=== PATIENT | female | born 1950 | race Caucasian/White ===

== ENCOUNTER 2017-03-11 15:14 | Inpatient (IN) | payer MEDICARE, MEDICAID ==
[2017-03-11] MEDS ORDERED: FUROSEMIDE 10 MG/ML 4 ML VIAL IV STA (15:41)
[2017-03-11] MEDS ORDERED: methylPREDNISolone SOD SUCCI 125 MG/2 ML VIAL IV STA (15:41)
[2017-03-11] MEDS ORDERED: IPRATROPIUM-ALBUTEROL 3 ML NEB INHALATION STA (15:41)
--- NOTE | 2017-03-11 15:44 | ED ---
SOB HPI - General Chief Complaint: Shortness of Breath Stated Complaint: Low Oxygen level Time Seen by Provider: 03/11/17 15:25 Source: patient, family, RN notes reviewed Mode of arrival: wheelchair Limitations: physical limitation - History of Present Illness Initial Comments: This is a 67-year-old female with a history of CHF and COPD who states she's had about one week of progressively worsening shortness of breath refractory to her home medications she denies any overt fevers chills sweats or chest pain. She does states she currently being treated for infection to both her lower extremities she is not really nose any increased edema. She denies any overt dizziness she has have a history of atrial fibrillation she notices no increased palpitations. MD Complaint: shortness of breath - Related Data Home Medications Medication Instructions Recorded Confirmed Aspirin [Adult Low Dose Aspirin EC] 81 mg PO DAILY@0600 11/18/15 03/11/17 Fluticasone/Salmeterol [Advair 1 puff INHALATION RT-BID 11/18/15 03/11/17 250-50 Diskus] Furosemide 40 mg PO DAILY@0611/18/15 03/11/17 Metoprolol Tartrate [Lopressor] 50 mg PO DAILY@169911/18/15 03/11/17 Metoprolol Tartrate [Lopressor] 150 mg PO DAILY@0611/18/15 03/11/17 Montelukast [Singulair] 10 mg PO DAILY@169911/18/15 03/11/17 Multivitamins, Thera [Multivitamin 1 tab PO DAILY 11/18/15 03/11/17 (formulary)] Rivaroxaban [Xarelto] 15 mg PO DAILY@169911/18/15 03/11/17 Acetaminophen Tab [Tylenol Tab] 1,500 mg PO BID 03/11/17 03/11/17 Fexofenadine HCl [Sarita Allergy] 180 mg PO DAILY PRN 03/11/17 03/11/17 Ipratropium Nebulized [Atrovent 0.5 mg INHALATION RT-BID 03/11/17 03/11/17 Nebulized] Lansoprazole [Prevacid] 15 mg PO DAILY PRN 03/11/17 03/11/17 Losartan [Cozaar] 25 mg PO DAILY@1300 03/11/17 03/11/17 Spironolactone [Aldactone] 25 mg PO DAILY@1300 03/11/17 03/11/17 amLODIPine [Norvasc] 10 mg PO DAILY@1700 03/11/17 03/11/17 cloNIDine HCL [Catapres] 0.1 mg PO TID@0600,1300,2200 03/11/17 03/11/17 Allergies Allergy/AdvReac Type Severity Reaction Status Date / Time No Known Allergies Allergy Verified 03/11/17 16:29 Review of Systems ROS Statement: Those systems with pertinent positive or pertinent negative responses have been documented in the HPI. ROS Other: All systems not noted in ROS Statement are negative. Past Medical History Past Medical History: Atrial Fibrillation, Asthma, Heart Failure, COPD, GI Bleed , Hypertension Additional Past Medical History / Comment(s): 11-18-15 admitted with c/o abd pain , clinical impression acute diverticulitis, cellulitis ll extremitis. 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 Smoking Status: Former smoker Past Alcohol Use History: None Reported Additional Past Alcohol Use History / Comment(s): used to smoke , quit 2013 Past Drug Use History: None Reported - Past Family History Father Family Medical History: Eye Disorder, Osteoarthritis (OA) Additional Family Medical History / Comment(s): at age 92 from old age, had macular degeneration Mother Family Medical History: Coronary Artery Disease (CAD), Diabetes Mellitus, Hypertension, Renal Disease Additional Family Medical History / Comment(s): cabg, dialysis General Exam - General Exam Comments Initial Comments: This is a well-developed well-nourished awake alert oriented 3 female the patient does demonstrate morgue obesity. Limitations: physical limitation General appearance: anxious Head exam: Present: atraumatic, normocephalic, normal inspection Eye exam: Present: normal appearance, PERRL, EOMI. Absent: scleral icterus, conjunctival injection, periorbital swelling ENT exam: Present: normal exam, mucous membranes moist Neck exam: Present: normal inspection. Absent: tenderness, meningismus, lymphadenopathy Respiratory exam: Present: decreased breath sounds. Absent: respiratory distress, wheezes, rales, rhonchi, stridor Cardiovascular Exam: Present: tachycardia, irregular rhythm. Absent: systolic murmur, diastolic murmur, rubs, gallop, clicks GI/Abdominal exam: Present: soft, normal bowel sounds. Absent: distended, tenderness, guarding, rebound, rigid Extremities exam: Present: normal inspection, full ROM, normal capillary refill , pedal edema. Absent: tenderness, joint swelling, calf tenderness Back exam: Present: normal inspection Neurological exam: Present: alert, oriented X3, CN II-XII intact Psychiatric exam: Present: normal affect, normal mood Skin exam: Present: warm, dry, intact, normal color. Absent: rash Course Vital Signs 03/11/17 03/11/17 03/11/17 15:18 15:50 16:11 Temperature 97.5 F L Pulse Rate 112 H 100 Respiratory 24 23 Rate Blood Pressure 126/71 O2 Sat by Pulse 70 L Oximetry 03/11/17 03/11/17 16:23 18:00 Temperature 98.2 F Pulse Rate 101 H 85 Respiratory 23 Rate Blood Pressure 128/66 O2 Sat by Pulse 96 Oximetry - Reevaluation(s) Reevaluation #1: 03/11/17 18:44 Reevaluation patient reveals mild improvement. Medical Decision Making - Medical Decision Making I did reevaluate the patient again she is some improvement she still dyspneic. I did discuss findings with her family members and with the admitting physician patient will be admitted consultation by cardiology and pulmonary medicine. - Lab Data Result diagrams: 03/11/17 15:50 03/11/17 15:50 Lab Results 03/11/17 03/11/17 03/11/17 Range/Units 15:50 15:50 15:50 WBC 10.3 (3.8-10.6) k/uL RBC 4.89 (3.80-5.40) m/uL Hgb 14.4 (11.4-16.0) gm/dL Hct 45.6 (34.0-46.0) % MCV 93.1 (80.0-100.0) fL MCH 29.4 (25.0-35.0) pg MCHC 31.6 (31.0-37.0) g/dL RDW 14.3 (11.5-15.5) % Plt Count 163 (150-450) k/uL Neutrophils % 79 % Lymphocytes % 12 % Monocytes % 5 % Eosinophils % 1 % Basophils % 0 % Neutrophils # 8.1 H (1.3-7.7) k/uL Lymphocytes # 1.2 (1.0-4.8) k/uL Monocytes # 0.5 (0-1.0) k/uL Eosinophils # 0.1 (0-0.7) k/uL Basophils # 0.0 (0-0.2) k/uL Hypochromasia Moderate PT (9.0-12.0) sec INR (<1.1) APTT (22.0-30.0) sec Sodium 143 (137-145) mmol/L Potassium 5.0 (3.5-5.1) mmol/L Chloride 106 (98-107) mmol/L Carbon Dioxide 27 (22-30) mmol/L Anion Gap 10 mmol/L BUN 40 H (7-17) mg/dL Creatinine 1.06 H (0.52-1.04) mg/dL Est GFR (MDRD) Af Amer >60 (>60 ml/min/1.73 sqM) Est GFR (MDRD) Non-Af 52 (>60 ml/min/1.73 sqM) Glucose 101 H (74-99) mg/dL Calcium 9.7 (8.4-10.2) mg/dL Magnesium 1.9 (1.6-2.3) mg/dL Total Bilirubin 0.8 (0.2-1.3) mg/dL AST 39 H (14-36) U/L ALT 36 (9-52) U/L Alkaline Phosphatase 80 (38-126) U/L Total Creatine Kinase <20 L (30-135) U/L CK-MB (CK-2) 0.7 (0.0-2.4) ng/mL CK-MB (CK-2) Rel Index 0.0 Troponin I <0.012 (0.000-0.034) ng/mL NT-Pro-B Natriuret Pep pg/mL Total Protein 7.4 (6.3-8.2) g/dL Albumin 3.9 (3.5-5.0) g/dL Urine Color Urine Appearance (Clear) Urine pH (5.0-8.0) Ur Specific [place] (1.001-1.035) Urine Protein (Negative) Urine Glucose (UA) (Negative) Urine Ketones (Negative) Urine Blood (Negative) Urine Nitrite (Negative) Urine Bilirubin (Negative) Urine Urobilinogen (<2.0) mg/dL Ur Leukocyte Esterase (Negative) Urine WBC (0-5) /hpf Urine WBC Clumps (None) /hpf Ur Squamous Epith Cells (0-4) /hpf Urine Bacteria (None) /hpf Hyaline Casts (0-2) /lpf Urine Mucus (None) /hpf 03/11/17 03/11/17 03/11/17 Range/Units 15:50 15:50 17:40 WBC (3.8-10.6) k/uL RBC (3.80-5.40) m/uL Hgb (11.4-16.0) gm/dL Hct (34.0-46.0) % MCV (80.0-100.0) fL MCH (25.0-35.0) pg MCHC (31.0-37.0) g/dL RDW (11.5-15.5) % Plt Count (150-450) k/uL Neutrophils % % Lymphocytes % % Monocytes % % Eosinophils % % Basophils % % Neutrophils # (1.3-7.7) k/uL Lymphocytes # (1.0-4.8) k/uL Monocytes # (0-1.0) k/uL Eosinophils # (0-0.7) k/uL Basophils # (0-0.2) k/uL Hypochromasia PT 10.9 (9.0-12.0) sec INR 1.1 (<1.1) APTT 22.4 (22.0-30.0) sec Sodium (137-145) mmol/L Potassium (3.5-5.1) mmol/L Chloride (98-107) mmol/L Carbon Dioxide (22-30) mmol/L Anion Gap mmol/L BUN (7-17) mg/dL Creatinine (0.52-1.04) mg/dL Est GFR (MDRD) Af Amer (>60 ml/min/1.73 sqM) Est GFR (MDRD) Non-Af (>60 ml/min/1.73 sqM) Glucose (74-99) mg/dL Calcium (8.4-10.2) mg/dL Magnesium (1.6-2.3) mg/dL Total Bilirubin (0.2-1.3) mg/dL AST (14-36) U/L ALT (9-52) U/L Alkaline Phosphatase (38-126) U/L Total Creatine Kinase (30-135) U/L CK-MB (CK-2) (0.0-2.4) ng/mL CK-MB (CK-2) Rel Index Troponin I (0.000-0.034) ng/mL NT-Pro-B Natriuret Pep 3200 pg/mL Total Protein (6.3-8.2) g/dL Albumin (3.5-5.0) g/dL Urine Color Yellow Urine Appearance Cloudy H (Clear) Urine pH 5.0 (5.0-8.0) Ur Specific [place] 1.012 (1.001-1.035) Urine Protein Trace H (Negative) Urine Glucose (UA) Negative (Negative) Urine Ketones Negative (Negative) Urine Blood Negative (Negative) Urine Nitrite Positive H (Negative) Urine Bilirubin Negative (Negative) Urine Urobilinogen <2.0 (<2.0) mg/dL Ur Leukocyte Esterase Large H (Negative) Urine WBC 14 H (0-5) /hpf Urine WBC Clumps Few H (None) /hpf Ur Squamous Epith Cells <1 (0-4) /hpf Urine Bacteria Moderate H (None) /hpf Hyaline Casts 3 H (0-2) /lpf Urine Mucus Rare H (None) /hpf - EKG Data -: EKG Interpreted by Me (Atrial fibrillation the rate is 94 QRS of 90 QT/QTC of 326/47 right word ax) - Radiology Data Radiology results: report reviewed (Review the imaging that show evidence of CHF ), image reviewed Critical Care Time Critical Care Time: Yes Critical Care Time: 35 minutes critical care time which includes initial monitoring of the patient with history physical lab and x-rays reevaluation patient response to therapy. Documentation above discussion with physicians. Admission orders review of old charting. Disposition Clinical Impression: Congestive heart failure, Acute exacerbation of chronic obstructive airways disease Disposition: ADMITTED IP TO THIS HOSP Condition: Stable Referrals: Kirit Bartlett DO [Doctor of Osteopathic Medicine] - 1-2 days
[2017-03-11 16:12] LABS: Basophils % (A) 0 %; CH 28.6; Eosinophils # (A) 0.1 k/uL (0-0.7); Eosinophils % (A) 1 %; HCT 45.6 % (34.0-46.0); HDW 2.95; HGB 14.4 gm/dL (11.4-16.0); Hypochromasia Moderate; Luc # (Auto) 0.26; Luc % (Auto) 3; Lymphocytes # (A) 1.2 k/uL (1.0-4.8); Lymphocytes % (A) 12 %; MCH 29.4 pg (25.0-35.0); MCHC 31.6 g/dL (31.0-37.0); MCV 93.1 fL (80.0-100.0); Mean Platelet Volume 8.8; Monocytes # (A) 0.5 k/uL (0-1.0); Monocytes % (A) 5 %; Neutrophils # (A) 8.1 k/uL (1.3-7.7); Neutrophils % (A) 79 %; RBC 4.89 m/uL (3.80-5.40); RDW 14.3 % (11.5-15.5); WBC 10.3 k/uL (3.8-10.6); WBC (Perox) 9.89
[2017-03-11 16:19] LABS: INR 1.1 (<1.1); Partial Thromboplastin Time 22.4 sec (22.0-30.0); Prothrombin Time 10.9 sec (9.0-12.0)
[2017-03-11 16:23] LABS: Creatine Kinase <20 U/L (30-135)
[2017-03-11 16:28] LABS: ALT 36 U/L (9-52); AST 39 U/L (14-36); Alkaline Phosphatase 80 U/L (38-126); Anion Gap 10 mmol/L; Blood Urea Nitrogen 40 mg/dL (7-17); Calcium 9.7 mg/dL (8.4-10.2); Carbon Dioxide 27 mmol/L (22-30); Chloride 106 mmol/L (98-107); Glucose 101 mg/dL (74-99); Magnesium 1.9 mg/dL (1.6-2.3); Non-African American GFR(MDRD) 52 (>60 ml/min/1.73 sqM); Sodium 143 mmol/L (137-145); Total Bilirubin 0.8 mg/dL (0.2-1.3); Total Protein 7.4 g/dL (6.3-8.2)
[2017-03-11 16:36] LABS: Creatine Kinase MB 0.7 ng/mL (0.0-2.4); Troponin I <0.012 ng/mL (0.000-0.034)
--- NOTE | 2017-03-11 17:00 | XR ---
EXAMINATION TYPE: XR chest 2V DATE OF EXAM: 03/11/2017 4:46 PM COMPARISON: 11/22/2015 HISTORY: Difficulty breathing TECHNIQUE: Frontal and lateral views of the chest are obtained. FINDINGS: Heart is enlarged. There is pulmonary vascular congestion. There are chest leads. There is no definite pleural effusion. Bony thorax is intact. IMPRESSION: Mild congestive heart failure that is new or increased compared to last exam.
[2017-03-11 18:40] LABS: Appearance,Urine Cloudy (Clear); Bacteria,Urine Moderate /hpf; Bilirubin,Urine Negative (Negative); Glucose,Urine (UA) Negative (Negative); Ketones,Urine Negative (Negative); Leukocyte Esterase,Urine Large (Negative); Mucus,Urine Rare /hpf; Nitrite,Urine Positive (Negative); Particle Count 11187; Protein,Urine Trace (Negative); Specific Gravity,Urine 1.012 (1.001-1.035); Squamous Epithelial Cell,Urine <1 /hpf (0-4); UA Billing (MACRO vs. MICRO) MICRO; Urobilinogen,Urine <2.0 mg/dL (<2.0); WBC,Urine 14 /hpf (0-5)
[2017-03-11] MEDS ORDERED: PANTOPRAZOLE 40 MG TABLET PO PRN (18:52)
[2017-03-11] MEDS ORDERED: SODIUM CHLORIDE 0.9% 1,000 ML IV SCH (19:00)
[2017-03-11] MEDS: IPRATROPIUM-ALBUTEROL 3 ML NEB INHALATION SCH (20:08)
[2017-03-11] MEDS: ACETAMINOPHEN TAB 500 MG TAB PO SCH (21:26)
[2017-03-11] MEDS: NITROGLYCERIN OINT 1 INCH/GM PACKET TOPICAL SCH (21:27)
[2017-03-11] MEDS: cloNIDine HCL 0.1 MG TAB PO SCH (21:27)
[2017-03-11] MEDS: FUROSEMIDE 10 MG/ML 4 ML VIAL IV SCH (23:38)
[2017-03-11] MEDS: methylPREDNISolone SOD SUCCI 125 MG/2 ML VIAL IV SCH (23:38)
[2017-03-12] MEDS: IPRATROPIUM-ALBUTEROL 3 ML NEB INHALATION SCH ×6 (00:06→20:23)
[2017-03-12 06:19] LABS: Glucose,Whole Blood 162 mg/dL (75-99)
[2017-03-12] MEDS: cloNIDine HCL 0.1 MG TAB PO SCH ×3 (06:30→22:24)
[2017-03-12] MEDS: METOPROLOL TARTRATE 50 MG TAB PO SCH ×2 (06:30→17:00)
[2017-03-12] MEDS: ASPIRIN 81 MG CHEW PO SCH (06:30)
[2017-03-12] MEDS: methylPREDNISolone SOD SUCCI 125 MG/2 ML VIAL IV SCH ×4 (06:31→22:23)
[2017-03-12] MEDS: INSULIN LISPRO (humaLOG) 300 UNIT/3 ML VIAL SQ SCH ×5 (07:03→22:24)
[2017-03-12] MEDS: FUROSEMIDE 10 MG/ML 4 ML VIAL IV SCH ×3 (07:47→22:23)
[2017-03-12] MEDS: NITROGLYCERIN OINT 1 INCH/GM PACKET TOPICAL SCH (07:53)
[2017-03-12] MEDS: ACETAMINOPHEN TAB 500 MG TAB PO SCH ×2 (07:53→22:22)
[2017-03-12 10:24] VITALS: BMI 68.6
--- NOTE | 2017-03-12 10:46 | P.CRDCN ---
<Daisy Sorensen E - Last Filed: 03/12/17 10:19> History of Present Illness Consult date: 03/12/17 Requesting physician: Stephane Kwon Consult reason: congestive heart failure Chief complaint: Shortness of breath History of present illness: This is a 67-year-old female with history of hypertension, morbid obesity, chronic persistent atrial fibrillation, COPD, asthma, she presents to the hospital with symptoms of progressively worsening shortness of breath. Patient does use home O2, she denies any chest discomfort. She is also currently receiving treatment for infection in both of her lower extremities. Patient does have chronic persistent atrial fibrillation and is on Xarelto at home, upon interviewing her this morning, the patient states that she intermittently stops taking her xarelto because of vaginal bleeding. It was explained to her in detail that the risk for stroke increases if she suddenly stops taking her xarelto. We will try her on Eliquis. EKG on admission shows atrial fibrillation with a controlled ventricular response. Chest x-ray reveals mild congestive heart failure. BNP level 3200, troponins negative 3. Potassium 5.0, BUN 40, creatinine 1.0. CBC normal. Positive UTI. Blood pressure on arrival 126/70, oxygen saturation 70% on arrival. At the time of my examination this morning, patient does state that she is feeling somewhat better this morning. She was initiated on IV Lasix in the emergency room. As well as steroids. Her weight today is down 2 kg. Echocardiogram with Doppler study performed in 2014 revealed an ejection fraction of 40%, moderate left atrial enlargement, moderate TR, severe pulmonary hypertension. Past Medical History Past Medical History: Atrial Fibrillation, Asthma, Heart Failure, COPD, GI Bleed , Hypertension Additional Past Medical History / Comment(s): 89 admitted with c/o abd pain , clinical impression acute diverticulitis, cellulitis ll extremitis. 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 Past Psychological History: No Psychological Hx Reported Additional Psychological History / Comment(s): pt lives with daughter, gets around by using cane,denies falls and stated gets no outside sevices. Smoking Status: Former smoker Past Alcohol Use History: None Reported Additional Past Alcohol Use History / Comment(s): used to smoke 1 ppd, quit 2013 Past Drug Use History: None Reported - Past Family History Father Family Medical History: Eye Disorder, Osteoarthritis (OA) Additional Family Medical History / Comment(s): at age 92 from old age, had macular degeneration Mother Family Medical History: Coronary Artery Disease (CAD), Diabetes Mellitus, Hypertension, Renal Disease Additional Family Medical History / Comment(s): cabg, dialysis Medications and Allergies Home Medications Medication Instructions Recorded Confirmed Type Aspirin [Adult Low Dose Aspirin EC] 81 mg PO DAILY@0611/18/15 03/11/17 History Fluticasone/Salmeterol [Advair 1 puff INHALATION RT-BID 11/18/15 03/11/17 History 250-50 Diskus] Furosemide 40 mg PO DAILY@0611/18/15 03/11/17 History Metoprolol Tartrate [Lopressor] 50 mg PO DAILY@169911/18/15 03/11/17 History Metoprolol Tartrate [Lopressor] 150 mg PO DAILY@0600 11/18/15 03/11/17 History Montelukast [Singulair] 10 mg PO DAILY@169911/18/15 03/11/17 History Multivitamins, Thera [Multivitamin 1 tab PO DAILY 11/18/15 03/11/17 History (formulary)] Rivaroxaban [Xarelto] 15 mg PO DAILY@169911/18/15 03/11/17 History Acetaminophen Tab [Tylenol Tab] 1,500 mg PO BID 03/11/17 03/11/17 History Fexofenadine HCl [Sarita Allergy] 180 mg PO DAILY PRN 03/11/17 03/11/17 History Ipratropium Nebulized [Atrovent 0.5 mg INHALATION RT-BID 03/11/17 03/11/17 History Nebulized] Lansoprazole [Prevacid] 15 mg PO DAILY PRN 03/11/17 03/11/17 History Losartan [Cozaar] 25 mg PO DAILY@1300 03/11/17 03/11/17 History Spironolactone [Aldactone] 25 mg PO DAILY@1300 03/11/17 03/11/17 History amLODIPine [Norvasc] 10 mg PO DAILY@1700 03/11/17 03/11/17 History cloNIDine HCL [Catapres] 0.1 mg PO TID@0600,1300,2200 03/11/17 03/11/17 History Allergies Allergy/AdvReac Type Severity Reaction Status Date / Time No Known Allergies Allergy Verified 03/11/17 16:29 Physical Exam Vitals: Vital Signs Temp Pulse Pulse Resp BP BP Pulse Ox 03/12/17 09:34 92 03/12/17 09:16 92 03/12/17 07:58 19 03/12/17 07:45 97.8 F 92 19 117/76 90 L 03/12/17 04:00 97.5 F L 108 H 22 123/73 91 L 03/12/17 03:54 96 03/12/17 03:40 100 03/12/17 00:19 88 03/12/17 00:06 88 03/12/17 00:00 97.1 F L 101 H 18 127/59 90 L 03/11/17 20:23 93 L 03/11/17 20:22 96 03/11/17 20:08 97 03/11/17 20:00 97.0 F L 98 18 128/62 88 L 03/11/17 19:36 98.7 F 118 H 20 104/59 92 L 03/11/17 18:00 98.2 F 85 23 128/66 96 03/11/17 16:50 94 23 124/63 96 03/11/17 16:23 101 H 03/11/17 16:11 100 03/11/17 15:50 23 03/11/17 15:18 97.5 F L 112 H 24 126/71 70 L Intake and Output 03/11/17 03/12/17 03/12/17 22:59 06:59 14:59 Intake Total 240 125 Output Total 2350 Balance -2350 240 125 Intake: Oral 240 125 Output: Urine 2350 Uretheral (Diop) 350 Other: Voiding Method Indwelling Catheter Indwelling Catheter Indwelling Catheter Weight 183 kg 181.5 kg PHYSICAL EXAMINATION: HEENT: Head is atraumatic, normocephalic. Pupils equal, round. Neck is supple. There is elevated jugular venous pressure. HEART EXAMINATION: Heart S1 and S2 irregularly irregular CHEST EXAMINATION: On's reveal diminished air entry bilaterally. ABDOMEN: Soft, E's, nontender. Bowel sounds are heard. No organomegaly noted. EXTREMITIES: 1+ peripheral pulses with evidence of peripheral edema and no calf tenderness noted. Bilateral dressings in place. NEUROLOGIC patient is awake, alert and oriented -3. . Results 03/11/17 15:50 03/11/17 15:50 Cardiac Enzymes 03/11/17 03/11/17 03/11/17 Range/Units 10:12 15:50 15:50 AST 39 H (14-36) U/L CK-MB (CK-2) 0.7 (0.0-2.4) ng/mL Troponin I <0.012 <0.012 (0.000-0.034) ng/mL 03/12/17 Range/Units 03:36 AST (14-36) U/L CK-MB (CK-2) (0.0-2.4) ng/mL Troponin I <0.012 (0.000-0.034) ng/mL Coagulation 03/11/17 Range/Units 15:50 PT 10.9 (9.0-12.0) sec APTT 22.4 (22.0-30.0) sec CBC 03/11/17 Range/Units 15:50 WBC 10.3 (3.8-10.6) k/uL RBC 4.89 (3.80-5.40) m/uL Hgb 14.4 (11.4-16.0) gm/dL Hct 45.6 (34.0-46.0) % Plt Count 163 (150-450) k/uL Comprehensive Metabolic Panel 03/11/17 Range/Units 15:50 Sodium 143 (137-145) mmol/L Potassium 5.0 (3.5-5.1) mmol/L Chloride 106 (98-107) mmol/L Carbon Dioxide 27 (22-30) mmol/L BUN 40 H (7-17) mg/dL Creatinine 1.06 H (0.52-1.04) mg/dL Glucose 101 H (74-99) mg/dL Calcium 9.7 (8.4-10.2) mg/dL AST 39 H (14-36) U/L ALT 36 (9-52) U/L Alkaline Phosphatase 80 (38-126) U/L Total Protein 7.4 (6.3-8.2) g/dL Albumin 3.9 (3.5-5.0) g/dL Current Medications Generic Name Dose Route Start Last Admin Trade Name Freq PRN Reason Stop Dose Admin Acetaminophen 1,000 mg 03/11/17 21:00 03/12/17 07:53 Tylenol Tab PO 1,000 mg BID [facility] Administration Albuterol/Ipratropium 3 ml 03/11/17 20:00 03/12/17 09:16 Duoneb 0.5 Mg-3 Mg/3 Ml Soln INHALATION 3 ml RT-Q4H [facility] Administration Amlodipine Besylate 10 mg 03/12/17 17:00 Norvasc PO DAILY@1700 [facility] Aspirin 81 mg 03/12/17 06:00 03/12/17 06:30 Aspirin PO 81 mg DAILY@0600 [facility] Administration Clonidine 0.1 mg 03/11/17 22:00 03/12/17 06:30 Catapres PO 0.1 mg TID@0600,1300,2200 [facility] Administration Furosemide 40 mg 03/12/17 00:00 03/12/17 07:47 Lasix IV 40 mg Q8HR [facility] Administration Sodium Chloride 1,000 mls @ 20 mls/hr 03/11/17 19:00 03/12/17 07:47 Saline 0.9% IV Not Given .Q24H [facility] Insulin Human Lispro 0 unit 03/12/17 07:30 03/12/17 07:03 Humalog SQ 3 unit ACHS [facility] Administration Protocol Losartan Potassium 25 mg 03/12/17 13:00 Cozaar PO DAILY@1300 [facility] Methylprednisolone Sodium Succinate 60 mg 03/12/17 00:00 03/12/17 06:31 Solu-Medrol IV 60 mg Q6HR [facility] Administration Metoprolol Tartrate 150 mg 03/12/17 06:00 03/12/17 06:30 Lopressor PO 150 mg DAILY@0600 [facility] Administration Metoprolol Tartrate 50 mg 03/12/17 17:00 Lopressor PO DAILY@1700 [facility] Montelukast Sodium 10 mg 03/12/17 17:00 Singulair PO DAILY@1700 [facility] Multivitamins 1 each 03/12/17 12:00 Theragran PO DAILY@1200 [facility] Nitroglycerin 1 inch 03/11/17 22:00 03/12/17 07:53 Nitro-Bid Oint TOPICAL 1 inch QID [facility] Administration Pantoprazole Sodium 40 mg 03/11/17 18:52 Protonix PO DAILY PRN GI Upset Rivaroxaban 15 mg 03/12/17 17:00 Xarelto PO DAILY@1700 [facility] Spironolactone 25 mg 03/12/17 13:00 Aldactone PO DAILY@1300 [facility] Intake and Output 03/11/17 03/12/17 03/12/17 22:59 06:59 14:59 Intake Total 240 125 Output Total 2350 Balance -2350 240 125 Intake: Oral 240 125 Output: Urine 2350 Uretheral (Diop) 350 Other: Voiding Method Indwelling Catheter Indwelling Catheter Indwelling Catheter Weight 183 kg 181.5 kg 03/11/17 15:50 03/11/17 15:50 EKG Interpretations (text) EKG shows atrial fibrillation with a moderately rapid ventricular response. Assessment and Plan Plan: Assessment and plan #1 systolic congestive heart failure acute on chronic #2 COPD exacerbation #3 atrial fibrillation with moderately rapid ventricular response, patient has known chronic persistent atrial fibrillation #4 hypertension # 5 morbid obesity Plan We will continue current dose of IV Lasix. Check free T4 and TSH as well as echocardiogram with Doppler study. We will also check to see if the patient has coverage for Eliquis and change her over from Xarelto to Eliquis. She has been advised regarding the importance of not stopping her anticoagulation. Further recommendations to follow. DNP note has been reviewed, I agree with a documented findings and plan of care. Patient was seen and examined. <Mike Child - Last Filed: 03/12/17 11:03> Physical Exam Vitals: Vital Signs Temp Pulse Pulse Resp BP BP Pulse Ox 03/12/17 09:34 92 03/12/17 09:16 92 03/12/17 07:58 19 03/12/17 07:45 97.8 F 92 19 117/76 90 L 03/12/17 04:00 97.5 F L 108 H 22 123/73 91 L 03/12/17 03:54 96 03/12/17 03:40 100 03/12/17 00:19 88 03/12/17 00:06 88 03/12/17 00:00 97.1 F L 101 H 18 127/59 90 L 03/11/17 20:23 93 L 03/11/17 20:22 96 03/11/17 20:08 97 03/11/17 20:00 97.0 F L 98 18 128/62 88 L 03/11/17 19:36 98.7 F 118 H 20 104/59 92 L 03/11/17 18:00 98.2 F 85 23 128/66 96 03/11/17 16:50 94 23 124/63 96 03/11/17 16:23 101 H 03/11/17 16:11 100 03/11/17 15:50 23 03/11/17 15:18 97.5 F L 112 H 24 126/71 70 L Intake and Output 03/11/17 03/12/17 03/12/17 22:59 06:59 14:59 Intake Total 240 125 Output Total 2350 Balance -2350 240 125 Intake: Oral 240 125 Output: Urine 2350 Uretheral (Diop) 350 Other: Voiding Method Indwelling Catheter Indwelling Catheter Indwelling Catheter Weight 183 kg 181.5 kg 181.5 kg Patient Weight 03/13/17 06:59 Weight 181.5 kg Results 03/11/17 15:50 03/11/17 15:50 Cardiac Enzymes 03/11/17 03/11/17 03/11/17 Range/Units 10:12 15:50 15:50 AST 39 H (14-36) U/L CK-MB (CK-2) 0.7 (0.0-2.4) ng/mL Troponin I <0.012 <0.012 (0.000-0.034) ng/mL 03/12/17 Range/Units 03:36 AST (14-36) U/L CK-MB (CK-2) (0.0-2.4) ng/mL Troponin I <0.012 (0.000-0.034) ng/mL Coagulation 03/11/17 Range/Units 15:50 PT 10.9 (9.0-12.0) sec APTT 22.4 (22.0-30.0) sec CBC 03/11/17 Range/Units 15:50 WBC 10.3 (3.8-10.6) k/uL RBC 4.89 (3.80-5.40) m/uL Hgb 14.4 (11.4-16.0) gm/dL Hct 45.6 (34.0-46.0) % Plt Count 163 (150-450) k/uL Comprehensive Metabolic Panel 03/11/17 Range/Units 15:50 Sodium 143 (137-145) mmol/L Potassium 5.0 (3.5-5.1) mmol/L Chloride 106 (98-107) mmol/L Carbon Dioxide 27 (22-30) mmol/L BUN 40 H (7-17) mg/dL Creatinine 1.06 H (0.52-1.04) mg/dL Glucose 101 H (74-99) mg/dL Calcium 9.7 (8.4-10.2) mg/dL AST 39 H (14-36) U/L ALT 36 (9-52) U/L Alkaline Phosphatase 80 (38-126) U/L Total Protein 7.4 (6.3-8.2) g/dL Albumin 3.9 (3.5-5.0) g/dL Current Medications Generic Name Dose Route Start Last Admin Trade Name Freq PRN Reason Stop Dose Admin Acetaminophen 1,000 mg 03/11/17 21:00 03/12/17 07:53 Tylenol Tab PO 1,000 mg BID [facility] Administration Albuterol/Ipratropium 3 ml 03/11/17 20:00 03/12/17 09:16 Duoneb 0.5 Mg-3 Mg/3 Ml Soln INHALATION 3 ml RT-Q4H [facility] Administration Amlodipine Besylate 10 mg 03/12/17 17:00 Norvasc PO DAILY@1700 [facility] Aspirin 81 mg 03/12/17 06:00 03/12/17 06:30 Aspirin PO 81 mg DAILY@0600 [facility] Administration Clonidine 0.1 mg 03/11/17 22:00 03/12/17 06:30 Catapres PO 0.1 mg TID@0600,1300,2200 [facility] Administration Furosemide 40 mg 03/12/17 00:00 03/12/17 07:47 Lasix IV 40 mg Q8HR [facility] Administration Insulin Human Lispro 0 unit 03/12/17 07:30 03/12/17 07:03 Humalog SQ 3 unit ACHS [facility] Administration Protocol Losartan Potassium 25 mg 03/12/17 13:00 Cozaar PO DAILY@1300 [facility] Methylprednisolone Sodium Succinate 60 mg 03/12/17 00:00 03/12/17 06:31 Solu-Medrol IV 60 mg Q6HR [facility] Administration Metoprolol Tartrate 150 mg 03/12/17 06:00 03/12/17 06:30 Lopressor PO 150 mg DAILY@0600 [facility] Administration Metoprolol Tartrate 50 mg 03/12/17 17:00 Lopressor PO DAILY@1700 [facility] Montelukast Sodium 10 mg 03/12/17 17:00 Singulair PO DAILY@1700 [facility] Multivitamins 1 each 03/12/17 12:00 Theragran PO DAILY@1200 [facility] Pantoprazole Sodium 40 mg 03/11/17 18:52 Protonix PO DAILY PRN GI Upset Rivaroxaban 15 mg 03/12/17 17:00 Xarelto PO DAILY@1700 [facility] Spironolactone 25 mg 03/12/17 13:00 Aldactone PO DAILY@1300 [facility] Intake and Output 03/11/17 03/12/17 03/12/17 22:59 06:59 14:59 Intake Total 240 125 Output Total 2350 Balance -2350 240 125 Intake: Oral 240 125 Output: Urine 2350 Uretheral (Diop) 350 Other: Voiding Method Indwelling Catheter Indwelling Catheter Indwelling Catheter Weight 183 kg 181.5 kg 181.5 kg Patient Weight 03/13/17 06:59 Weight 181.5 kg 03/11/17 15:50 03/11/17 15:50
--- NOTE | 2017-03-12 11:01 | P.PN ---
Progress Note - Text Patient interviewed and examined Patient admitted with increased shortness of breath and lower extremity edema Known permanent atrial fibrillation, rates are between 9210 at rest, advanced lung disease on home oxygen, hypertension, patient on anticoagulation for stroke prevention Past echo shows moderate LV dysfunction left ventricular ejection fraction 40% in the past, with right ventricular enlargement and severe pulmonary hypertension Systemic blood pressure is well controlled Suggest IV diuresis with Lasix and then increasing the dose of Lasix for at least 40 mg twice daily by mouth upon discharge Better rate control of atrial fibrillation with metoprolol succinate, 200 mg by mouth every morning starting tomorrow and reassessment of rate control TSH level Continue cardio myopathy medications including spironolactone and losartan See full consultation dictation by Dr. molina
[2017-03-12 11:50] LABS: Glucose,Whole Blood 121 mg/dL (75-99)
[2017-03-12] MEDS: SPIRONOLACTONE 25 MG TAB PO SCH (12:08)
[2017-03-12] MEDS: MULTIVITAMINS, THERA 1 EACH TAB PO SCH (12:09)
[2017-03-12] MEDS: LOSARTAN 25 MG TAB PO SCH (12:09)
--- NOTE | 2017-03-12 13:52 | ECHOF ---
Referral Reason:chf MEASUREMENTS -------- HEIGHT: 162.6 cm WEIGHT: 181.4 kg BP: 117/76 RVIDd: 4.2 cm (< 3.3) IVSd: 1.3 cm (0.6 - 1.1) LVIDd: 5.6 cm (3.9 - 5.3) LVPWd: 1.3 cm (0.6 - 1.1) IVSs: 1.7 cm LVIDs: 4.9 cm LVPWs: 1.6 cm Ao Diam: 3.1 cm (2.0 - 3.7) AV Cusp: 1.1 cm (1.5 - 2.6) LA Diam: 5.4 cm (2.7 - 3.8) MV EXCURSION: 21.475 mm (> 18.000) MV EF SLOPE: 80 mm/s (70 - 150) EPSS: 0.7 cm RAP: 5.00 mmHg RVSP: 10.82 mmHg FINDINGS -------- Resting tachycardia (HR>100bpm). This was a technically difficult study with suboptimal views. Patient refused Definity. There is mild concentric left ventricular hypertrophy. Overall left ventricular systolic function is normal with, an EF between 55 - 60 %. The right ventricle is normal in size and function. The left atrium is markedly dilated. The right atrium was not well visualized. Aortic valve is trileaflet and is mildly thickened. There is no evidence of aortic regurgitation. There is no evidence of aortic stenosis. The mitral valve leaflets are mildly thickened. Mild mitral annular calcification present. There is trace mitral regurgitation. Trace tricuspid regurgitation present. There is no evidence of pulmonary hypertension. The right ventricular systolic pressure, as measured by Doppler, is 10.82mmHg. The pulmonic valve is normal. The aortic root size is normal. IVC Not well visulized. The pericardium is normal. There is no pericardial effusion. CONCLUSIONS -------- 1. Resting tachycardia (HR>100bpm). 2. Mild mitral annular calcification present. 3. There is trace mitral regurgitation. 4. Trace tricuspid regurgitation present. 5. There is no evidence of pulmonary hypertension. 6. The right ventricular systolic pressure, as measured by Doppler, is 10.82mmHg. 7. The aortic root size is normal. 8. IVC Not well visulized. 9. There is no pericardial effusion. 10. This was a technically difficult study with suboptimal views. 11. Patient refused Definity. 12. There is mild concentric left ventricular hypertrophy. 13. Overall left ventricular systolic function is normal with, an EF between 55 - 60 %. 14. The left atrium is markedly dilated. 15. The right atrium was not well visualized. 16. Aortic valve is trileaflet and is mildly thickened. 17. The mitral valve leaflets are mildly thickened. [employer] DES[employer]ER: Jhonny Hassan RDCS
--- NOTE | 2017-03-12 13:53 | P.CNPUL ---
History of Present Illness Consult date: 03/12/17 Requesting physician: Stephane Kwon Reason for consult: dyspnea Chief complaint: Shortness of breath History of present illness: This is a very pleasant 67-year-old female patient who follows with Dr. Agee and has a known history of atrial fibrillation, congestive heart failure, GI bleed, hypertension, diverticulitis, cellulitis of the lower extremities. She also has a history of oxygen dependent chronic obstructive pulmonary disease and follows in our office for the same. She is a former smoker but quit back in 2013. She is maintained on Advair and DuoNeb inhalations. She presented to the emergency room yesterday after feeling short of breath over the past several days. She had noted her O2 saturations to be dropping into the 80s despite increasing her oxygen from 2 L to 4 L. He denied any other symptoms no cough, congestion chills or night sweats. No recent illness. No recent travel. Her chest x-ray revealed evidence of mild congestive heart failure. Echocardiogram is pending. ProBNP 3200. Troponins are negative. No leukocytosis. No anemia. Her urinalysis does reveal positive nitrates, moderate bacteria and large leukocytes. She has been initiated on Lasix 40 mg IV every 8 hours and is currently in a -2 L balance. Presently, she is awake and alert in no acute distress. She states she is already breathing easier today as compared to yesterday. She continues to deny any cough or congestion. She is requiring 15 L of high flow nasal cannula to maintain O2 saturations in the low 90s. Review of Systems 14 point review of system is conducted. All negative other than as mentioned in the HPI. Past Medical History Past Medical History: Atrial Fibrillation, Asthma, Heart Failure, COPD, GI Bleed , Hypertension Additional Past Medical History / Comment(s): 2--16 admitted with c/o abd pain , clinical impression acute diverticulitis, cellulitis ll extremitis. 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 Past Psychological History: No Psychological Hx Reported Additional Psychological History / Comment(s): pt lives with daughter, gets around by using cane,denies falls and stated gets no outside sevices. Smoking Status: Former smoker Past Alcohol Use History: None Reported Additional Past Alcohol Use History / Comment(s): used to smoke 1 ppd, quit 2013 Past Drug Use History: None Reported - Past Family History Father Family Medical History: Eye Disorder, Osteoarthritis (OA) Additional Family Medical History / Comment(s): at age 92 from old age, had macular degeneration Mother Family Medical History: Coronary Artery Disease (CAD), Diabetes Mellitus, Hypertension, Renal Disease Additional Family Medical History / Comment(s): cabg, dialysis Medications and Allergies Home Medications Medication Instructions Recorded Confirmed Type Aspirin [Adult Low Dose Aspirin EC] 81 mg PO DAILY@0611/18/15 03/11/17 History Fluticasone/Salmeterol [Advair 1 puff INHALATION RT-BID 11/18/15 03/11/17 History 250-50 Diskus] Furosemide 40 mg PO DAILY@0611/18/15 03/11/17 History Metoprolol Tartrate [Lopressor] 50 mg PO DAILY@17011/18/15 03/11/17 History Metoprolol Tartrate [Lopressor] 150 mg PO DAILY@59911/18/15 03/11/17 History Montelukast [Singulair] 10 mg PO DAILY@169911/18/15 03/11/17 History Multivitamins, Thera [Multivitamin 1 tab PO DAILY 11/18/15 03/11/17 History (formulary)] Rivaroxaban [Xarelto] 15 mg PO DAILY@169911/18/15 03/11/17 History Acetaminophen Tab [Tylenol Tab] 1,500 mg PO BID 03/11/17 03/11/17 History Fexofenadine HCl [Sarita Allergy] 180 mg PO DAILY PRN 03/11/17 03/11/17 History Ipratropium Nebulized [Atrovent 0.5 mg INHALATION RT-BID 03/11/17 03/11/17 History Nebulized] Lansoprazole [Prevacid] 15 mg PO DAILY PRN 03/11/17 03/11/17 History Losartan [Cozaar] 25 mg PO DAILY@1300 03/11/17 03/11/17 History Spironolactone [Aldactone] 25 mg PO DAILY@1300 03/11/17 03/11/17 History amLODIPine [Norvasc] 10 mg PO DAILY@1700 03/11/17 03/11/17 History cloNIDine HCL [Catapres] 0.1 mg PO TID@0600,1300,2200 03/11/17 03/11/17 History Allergies Allergy/AdvReac Type Severity Reaction Status Date / Time No Known Allergies Allergy Verified 03/11/17 16:29 Physical Exam Vitals: Vital Signs Temp Pulse Pulse Resp BP BP Pulse Ox 03/12/17 12:25 100 03/12/17 12:12 100 03/12/17 11:16 90 20 110/65 90 L 03/12/17 09:34 92 03/12/17 09:16 92 03/12/17 07:58 19 03/12/17 07:45 97.8 F 92 19 117/76 90 L 03/12/17 04:00 97.5 F L 108 H 22 123/73 91 L 03/12/17 03:54 96 03/12/17 03:40 100 03/12/17 00:19 88 03/12/17 00:06 88 03/12/17 00:00 97.1 F L 101 H 18 127/59 90 L 03/11/17 20:23 93 L 03/11/17 20:22 96 03/11/17 20:08 97 03/11/17 20:00 97.0 F L 98 18 128/62 88 L 03/11/17 19:36 98.7 F 118 H 20 104/59 92 L 03/11/17 18:00 98.2 F 85 23 128/66 96 03/11/17 16:50 94 23 124/63 96 03/11/17 16:23 101 H 03/11/17 16:11 100 03/11/17 15:50 23 03/11/17 15:18 97.5 F L 112 H 24 126/71 70 L Intake and Output 03/11/17 03/12/17 03/12/17 22:59 06:59 14:59 Intake Total 240 125 Output Total 2350 Balance -2350 240 125 Intake: Oral 240 125 Output: Urine 2350 Uretheral (Idop) 350 Other: Voiding Method Indwelling Catheter Indwelling Catheter Indwelling Catheter Weight 183 kg 181.5 kg 181.5 kg Patient Weight 03/13/17 06:59 Weight 181.5 kg GENERAL EXAM: Morbidly obese. Alert, comfortable in no apparent distress. HEAD: Normocephalic. EYES: Normal reaction of pupils, equal size. NOSE: Clear with pink turbinates. THROAT: There is crowding of the posterior pharynx. No erythema or exudates. NECK: Short. No masses, no JVD. CHEST: No chest wall deformity. LUNGS: Equal air entry with crackles in the bilateral posterior bases. Diminished. CVS: S1 and S2 normal with no audible murmurs, irregular rhythm. ABDOMEN: Obese, soft, normal bowel sounds, no guarding or rigidity. SPINE: No scoliosis or deformity SKIN: No rashes CENTRAL NERVOUS SYSTEM: No focal deficits, tone is normal in all 4 extremities. Extremities: There are wraps to the bilateral lower extremities with weeping. 2- 3+ peripheral edema. No clubbing, no cyanosis. Peripheral pulses are intact. Results - Laboratory Findings CBC and BMP: 03/11/17 15:50 03/11/17 15:50 PT/INR, D-dimer PT 10.9 sec (9.0-12.0) 03/11/17 15:50 INR 1.1 (<1.1) 03/11/17 15:50 Abnormal lab findings: Abnormal Labs 03/11/17 03/11/17 03/11/17 15:50 15:50 15:50 Neutrophils # 8.1 H BUN 40 H Creatinine 1.06 H Glucose 101 H POC Glucose (mg/dL) AST 39 H Total Creatine Kinase <20 L Urine Appearance Urine Protein Urine Nitrite Ur Leukocyte Esterase Urine WBC Urine WBC Clumps Urine Bacteria Hyaline Casts Urine Mucus 03/11/17 03/12/17 03/12/17 17:40 06: 11:47 Neutrophils # BUN Creatinine Glucose POC Glucose (mg/dL) 162 H 121 H AST Total Creatine Kinase Urine Appearance Cloudy H Urine Protein Trace H Urine Nitrite Positive H Ur Leukocyte Esterase Large H Urine WBC 14 H Urine WBC Clumps Few H Urine Bacteria Moderate H Hyaline Casts 3 H Urine Mucus Rare H - Diagnostic Findings Chest x-ray: image reviewed Assessment and Plan Plan: Impression: #1 Acute exacerbation of chronic suspected systolic congestive heart failure. Echocardiogram pending. Previous echocardiogram revealed evidence of impaired left ventricular systolic function with estimated ejection fraction of 40% and severe pulmonary hypertension. #2 Acute exacerbation of chronic obstructive pulmonary disease. #3 Acute on chronic hypoxic respiratory failure secondary to above. #4 Atrial fibrillation, anticoagulated with Xarelto. #5 Morbid obesity, suspect obesity/hypoventilation syndrome/obstructive sleep apnea. #6 Urinary tract infection. #7 Mild acute renal failure, creatinine 1.06. #8 Cellulitis of the lower extremities. #9 History of vaginal bleed. #10 History of GI bleed. #11 Hypertension. Plan: The patient was seen and evaluated by Dr. Joshi. Her chest x-ray and labs were reviewed. We'll continue her treatment for COPD exacerbation including IV Solu-Medrol, bronchodilators, we will add Pulmicort and Perforomist inhalations , continue Singulair. Most likely symptoms from congestive heart failure as she is feeling quite a bit better today as compared to yesterday. Continue IV Lasix. She remains anticoagulated with Xarelto. She is on ceftriaxone for the suspected urinary tract infection. Cultures are pending. We will continue to follow and make further recommendations based on her clinical status. Time with Patient: Greater than 30
[2017-03-12] MEDS: amLODIPine 10 MG TAB PO SCH (17:01)
[2017-03-12] MEDS: MONTELUKAST 10 MG TAB PO SCH (17:01)
[2017-03-12] MEDS: RIVAROXABAN 15 MG TAB PO SCH ×2 (17:01→17:09)
[2017-03-12 17:12] LABS: Glucose,Whole Blood 137 mg/dL (75-99)
--- NOTE | 2017-03-12 18:50 | HP ---
DATE OF ADMISSION: CHIEF COMPLAINT: Shortness of breath. HISTORY OF PRESENT ILLNESS: This 67-year-old woman with a past medical history of multiple medical problems and atrial fibrillation, asthma, CHF, COPD, GI bleed, hypertension, history of diverticulitis, being followed Dr. Agee and Dr. Duffy in the outpatient setting is complaining of shortness of breath over the past several days. Because of increasing shortness of breath, the patient came to [facility] and was admitted for further evaluation and treatment. The patient had no overt chills and sweating, but the patient had some cough and some mucopurulent sputum also. The congestive heart failure was diagnosed. Ejection fraction found to be 40% previously, but current ejection fraction is improved at 50 to 60%. The patient also had a significant history of smoking and smoking 1 pack for almost 40 years. Possible COPD is also being considered and Dr. Joshi is also being consulted. Of note, the patient needed high flow oxygen at 15 liters to maintain oxygenation and getting significant hypoxia at this time. There is no history of any fever, rigors, chills. No history of headache, loss of consciousness, seizures. PAST MEDICAL HISTORY: History of atrial fibrillation, history of asthma, history of CHF, COPD, GI bleed, hypertension, history of home O2, chronic respiratory failure. Medications prior to admission include to home medications are: 1. Catapres 0.1 p.o. t.i.d. 2. Norvasc 10 mg p.o. daily. 3. Aldactone 25 mg daily. 4. Xarelto 15 mg daily. 5. Multivitamin 1 p.o. daily. 6. Singulair 10 mg daily. 7. Lopressor 150 mg daily. 9. Cozaar 25 mg. 10. Prevacid 15 mg daily p.r.n. 11. Atrovent 0.5 b.i.d. 12. Advair 250/50, 1 puff b.i.d. 13. Sarita 180 mg p.o. daily. 14. Aspirin 81 mg b.i.d. 15. Tylenol 1500 mg p.o. b.i.d. ALLERGIES: ACETAMINOPHEN, ALBUTEROL, ATROVENT, DUONEB, NORVASC, ASPIRIN, PULMICORT, ROCEPHIN, CLONIDINE, PERFOROMIST, LASIX, HUMALOG, LORICET, SOLU-MEDROL, LOPRESSOR, SINGULAIR, MULTIVITAMIN AND PROTONIX, XARELTO, ALDACTONE. FAMILY HISTORY: History of degenerative joint disease. History of eye disorder. SOCIAL HISTORY: Previous history of smoking. No history of current smoking or alcohol intake as mentioned earlier. REVIEW OF SYSTEMS: ENT: Diminishing hearing. No diminished vision. CARDIOVASCULAR: As mentioned earlier. RESPIRATORY: As mentioned earlier. GI: No nausea. : No dysuria. NERVOUS SYSTEM: No numbness or weakness. ALLERGY/IMMUNOLOGY: As mentioned earlier. MUSCULOSKELETAL: As mentioned earlier. HEMATOLOGY: No history of anemia. ENDOCRINE: No history of diabetes or hypothyroidism. CONSTITUTIONAL: As mentioned earlier. DERMATOLOGY: Negative. RHEUMATOLOGY: Negative. PSYCHIATRY: As mentioned earlier. PHYSICAL EXAMINATION: Patient is alert and oriented x3. Pulse is 98, blood pressure 128/62, respirations 18. Temperature is 97 degrees, pulse ox 80% on 8 liters present on admission. HEENT: Conjunctivae normal. Oral mucosa moist. NECK: Accessory muscles of respiration acting. Patient is short of breath at rest. CARDIOVASCULAR: S1, S2 muffled. No S3, S4. Irregularly irregular. RESPIRATORY: Breathing efforts are markedly increased. Bilateral scattered rhonchi and expiratory wheeze and crackles also present bilaterally. ABDOMEN: Soft, nontender. No mass palpable. LEGS: No edema. No swelling. NERVOUS SYSTEM: Higher function as mentioned earlier. Moves all 4 limbs. No focal motor sensory deficits. LYMPHATIC: No lymphadenopathy in the neck, axillae or groin. SKIN: No ulcer, rash or bleeding. JOINTS: No active deforming arthropathy. LABS: CBC within normal limits and creatinine is 1.06, glucose 162. UA possible urinary tract infection. ASSESSMENT: 1. Shortness of breath possibly multifactorial with chronic obstructive pulmonary disease, acute exacerbation, and as well as congestive heart failure acute exacerbation with acute on chronic diastolic dysfunction, ejection fraction 50% to 60% with acute hypoxic respiratory failure. 2. Acute purulent tracheobronchitis. 3. Increased creatinine with chronic kidney disease, stage III. 4. Urinary tract infection. 5. History of atrial fibrillation, chronic persistent. 6. Atrial fibrillation with fast ventricular rate. 7. History of asthma, chronic obstructive pulmonary disease. 8. History of gastrointestinal bleed. 9. History of hypertension. 10. History of diverticulitis. 11. History of cellulitis of both lower extremities. 12. Chronic hypoxic respiratory failure with 2 to 3 nasal cannula oxygen. 13. History of duodenal ulcer. 14. History of cholecystectomy. 15. History of claustrophobia. 16. History of gait dysfunction. 17. FULL CODE. RECOMMENDATIONS AND DISCUSSION: This 67-year-old woman presented with multiple complex medical issues. We will monitor the patient closely. Continue the bronchodilators. Continue with empiric antibiotics. Otherwise I would recommend IV steroids. Monitor blood sugars closely. Will consult Cardiology and Pulmonology consultations. IV Lasix and fluid and electrolyte balance. Daily weight monitoring. Prognosis guarded because of multiple complex medical issues. Further recommendations to follow. Copy of dictation forwarded to Dr. Agee, who is the primary physician. CHRISTIANA
[2017-03-12 20:50] LABS: Glucose,Whole Blood 139 mg/dL (75-99)
[2017-03-12] MEDS: APIXABAN 5 MG TAB PO SCH (22:23)
[2017-03-13] MEDS: BUDESONIDE 1 MG/2 ML NEBU INHALATION SCH ×3 (00:01→20:25)
[2017-03-13] MEDS: FORMOTEROL FUMARATE 20 MCG/2 ML NEBU INHALATION SCH ×3 (00:01→20:25)
[2017-03-13 06:18] LABS: Glucose,Whole Blood 130 mg/dL (75-99)
[2017-03-13] MEDS: INSULIN LISPRO (humaLOG) 300 UNIT/3 ML VIAL SQ SCH ×4 (06:27→21:26)
[2017-03-13] MEDS: methylPREDNISolone SOD SUCCI 125 MG/2 ML VIAL IV SCH ×2 (06:29→13:24)
[2017-03-13] MEDS: METOPROLOL TARTRATE 50 MG TAB PO SCH ×2 (06:29→18:05)
[2017-03-13] MEDS: cloNIDine HCL 0.1 MG TAB PO SCH ×3 (06:29→21:25)
[2017-03-13] MEDS: ASPIRIN 81 MG CHEW PO SCH (06:29)
[2017-03-13] MEDS: APIXABAN 5 MG TAB PO SCH ×2 (08:15→21:26)
[2017-03-13] MEDS: FUROSEMIDE 10 MG/ML 4 ML VIAL IV SCH ×3 (08:15→21:26)
[2017-03-13] MEDS: ACETAMINOPHEN TAB 500 MG TAB PO SCH ×2 (08:15→21:26)
[2017-03-13] MEDS: IPRATROPIUM-ALBUTEROL 3 ML NEB INHALATION SCH ×4 (09:08→20:25)
--- NOTE | 2017-03-13 11:05 | P.PN ---
Subjective Principal diagnosis: Acute systolic congestive heart failure and acute exacerbation of COPD. Acute on chronic hypoxic respiratory failure. This is a very pleasant 67-year-old female patient who follows with Dr. Agee and has a known history of atrial fibrillation, congestive heart failure, GI bleed, hypertension, diverticulitis, cellulitis of the lower extremities. She also has a history of oxygen dependent chronic obstructive pulmonary disease and follows in our office for the same. She is a former smoker but quit back in 2013. She is maintained on Advair and DuoNeb inhalations. She presented to the emergency room yesterday after feeling short of breath over the past several days. She had noted her O2 saturations to be dropping into the 80s despite increasing her oxygen from 2 L to 4 L. He denied any other symptoms no cough, congestion chills or night sweats. No recent illness. No recent travel. Her chest x-ray revealed evidence of mild congestive heart failure. Echocardiogram is pending. ProBNP 3200. Troponins are negative. No leukocytosis. No anemia. Her urinalysis does reveal positive nitrates, moderate bacteria and large leukocytes. She has been initiated on Lasix 40 mg IV every 8 hours and is currently in a -2 L balance. Presently, she is awake and alert in no acute distress. She states she is already breathing easier today as compared to yesterday. She continues to deny any cough or congestion. She is requiring 15 L of high flow nasal cannula to maintain O2 saturations in the low 90s. Patient was reevaluated today on 03/13/2017, feeling better, breathing easier. Less shortness of breath, no cough, no wheezing, no chest pain. Objective - Vital Signs Vital signs: Vital Signs Temp 97.9 F 03/13/17 08:00 Pulse 110 H 03/13/17 09:34 Resp 20 03/13/17 08:00 BP 114/72 03/13/17 08:00 Pulse Ox 92 L 03/13/17 09:09 Intake & Output 03/12/17 03/13/17 03/13/17 18:59 06:59 18:59 Intake Total 295 240 236 Output Total 1400 1150 Balance -1105 -910 236 Weight 181.5 kg 177.5 kg Intake: Intake, IV Titration 50 Amount cefTRIAXone 1,000 mg In 50 Sodium Chloride 0.9% 50 ml @ 100 mls/hr IVPB Q24H [facility] Rx#:[id number] Oral 245 240 236 Output: Urine 1400 1150 Other: Voiding Method Indwelling Catheter Indwelling Catheter Indwelling Catheter # Voids 2 - Exam GENERAL EXAM: Morbidly obese. Alert, comfortable in no apparent distress. HEAD: Normocephalic. EYES: Normal reaction of pupils, equal size. NOSE: Clear with pink turbinates. THROAT: There is crowding of the posterior pharynx. No erythema or exudates. NECK: Short. No masses, no JVD. CHEST: No chest wall deformity. LUNGS: Equal air entry with crackles in the bilateral posterior bases. Diminished. CVS: S1 and S2 normal with no audible murmurs, irregular rhythm. ABDOMEN: Obese, soft, normal bowel sounds, no guarding or rigidity. SPINE: No scoliosis or deformity SKIN: No rashes CENTRAL NERVOUS SYSTEM: No focal deficits, tone is normal in all 4 extremities. Extremities: There are wraps to the bilateral lower extremities with weeping. 2- 3+ peripheral edema. No clubbing, no cyanosis. Peripheral pulses are intact. - Labs CBC & Chem 7: 03/11/17 15:50 03/11/17 15:50 Labs: Abnormal Lab Results - Last 24 Hours (Table) 03/12/17 03/12/17 03/12/17 Range/Units 11:47 16:52 20:48 POC Glucose (mg/dL) 121 H 137 H 139 H (75-99) mg/dL 03/13/17 Range/Units 06:16 POC Glucose (mg/dL) 130 H (75-99) mg/dL Microbiology - Last 24 Hours (Table) 03/12/17 15:35 Urine Culture - Preliminary Urine,Catheterized Assessment and Plan Plan: #1 Acute exacerbation of chronic suspected systolic congestive heart failure. Echocardiogram pending. Previous echocardiogram revealed evidence of impaired left ventricular systolic function with estimated ejection fraction of 40% and severe pulmonary hypertension. #2 Acute exacerbation of chronic obstructive pulmonary disease. #3 Acute on chronic hypoxic respiratory failure secondary to above. #4 Atrial fibrillation, anticoagulated with Xarelto. #5 Morbid obesity, suspect obesity/hypoventilation syndrome/obstructive sleep apnea. #6 Urinary tract infection. #7 Mild acute renal failure, creatinine 1.06. #8 Cellulitis of the lower extremities. #9 History of vaginal bleed. #10 History of GI bleed. #11 Hypertension. Recommendation: Continue present treatment plan including diuretics, bronchodilators, steroids, consider discharge planning in the next 2-3 days. And follow-up on outpatient basis as scheduled. Time with Patient: Less than 30
--- NOTE | 2017-03-13 11:48 | P.PN ---
Subjective Principal diagnosis: This is a 67-year-old female with history of hypertension, morbid obesity, chronic persistent atrial fibrillation, COPD, asthma, she presents to the hospital with symptoms of progressively worsening shortness of breath. Patient does use home O2, she denies any chest discomfort. She is also currently receiving treatment for infection in both of her lower extremities. Patient does have chronic persistent atrial fibrillation and is on Xarelto at home, upon interviewing her this morning, the patient states that she intermittently stops taking her xarelto because of vaginal bleeding. It was explained to her in detail that the risk for stroke increases if she suddenly stops taking her xarelto. We will try her on Eliquis. EKG on admission shows atrial fibrillation with a controlled ventricular response. Chest x-ray reveals mild congestive heart failure. BNP level 3200, troponins negative 3. Potassium 5.0, BUN 40, creatinine 1.0. CBC normal. Positive UTI. Blood pressure on arrival 126/70, oxygen saturation 70% on arrival. At the time of my examination this morning, patient does state that she is feeling somewhat better this morning. She was initiated on IV Lasix in the emergency room. As well as steroids. Her weight today is down 2 kg. Echocardiogram with Doppler study performed in 2014 revealed an ejection fraction of 40%, moderate left atrial enlargement, moderate TR, severe pulmonary hypertension. 03/13/2017 Echo cardiac gram with Doppler study was repeated this admission which revealed an ejection fraction of 55-60%. She diuresed well through the night last night , her weight is down 4 kg today. Creatinine 1.06. We will continue current dose of IV Lasix, continue to monitor intake and output along with daily weights and daily lytes BUN and creatinine. Patient has been approved for Eliquis Objective - Vital Signs Vital signs: Vital Signs Temp 97.9 F 03/13/17 08:00 Pulse 110 H 03/13/17 09:34 Resp 20 03/13/17 08:00 BP 114/72 03/13/17 08:00 Pulse Ox 92 L 03/13/17 09:09 Intake & Output 03/12/17 03/13/17 03/13/17 18:59 06:59 18:59 Intake Total 295 240 236 Output Total 1400 1150 Balance -1105 -910 236 Weight 181.5 kg 177.5 kg Intake: Intake, IV Titration 50 Amount cefTRIAXone 1,000 mg In 50 Sodium Chloride 0.9% 50 ml @ 100 mls/hr IVPB Q24H [facility] Rx#:[id number] Oral 245 240 236 Output: Urine 1400 1150 Other: Voiding Method Indwelling Catheter Indwelling Catheter Indwelling Catheter # Voids 2 - Exam PHYSICAL EXAMINATION: HEENT: Head is atraumatic, normocephalic. Pupils equal, round. Neck is supple. There is no elevated jugular venous pressure. HEART EXAMINATION: Heart S1 and S2 irregularly irregular CHEST EXAMINATION: Lungs reveal improvement in air entry bilaterally. ABDOMEN: Soft, obese, nontender. Bowel sounds are heard. No organomegaly noted. EXTREMITIES: 1+ peripheral pulses with evidence of peripheral edema and no calf tenderness noted. NEUROLOGIC patient is awake, alert and oriented -3. . - Labs CBC & Chem 7: 03/11/17 15:50 03/11/17 15:50 Labs: Abnormal Lab Results - Last 24 Hours (Table) 03/12/17 03/12/17 03/12/17 Range/Units 11:47 16:52 20:48 POC Glucose (mg/dL) 121 H 137 H 139 H (75-99) mg/dL 03/13/17 Range/Units 06:16 POC Glucose (mg/dL) 130 H (75-99) mg/dL Microbiology - Last 24 Hours (Table) 03/12/17 15:35 Urine Culture - Preliminary Urine,Catheterized Assessment and Plan Plan: Assessment and plan #1 diastolic congestive heart failure acute on chronic, echo done this admission revealed an ejection fraction of 55-60%. #2 COPD exacerbation #3 atrial fibrillation with moderately rapid ventricular response, patient has known chronic persistent atrial fibrillation #4 hypertension # 5 morbid obesity Plan We will continue current dose of IV Lasix. Patient has been approved for Feastie. Check lytes BUN and creatinine in the morning. DNP note has been reviewed, I agree with a documented findings and plan of care. Patient was seen and examined.
[2017-03-13 11:50] LABS: Glucose,Whole Blood 134 mg/dL (75-99)
[2017-03-13 12:15] LABS: Potassium 4.7 mmol/L (3.5-5.1)
[2017-03-13] MEDS: LOSARTAN 25 MG TAB PO SCH (13:24)
[2017-03-13] MEDS: MULTIVITAMINS, THERA 1 EACH TAB PO SCH (13:24)
[2017-03-13] MEDS: SPIRONOLACTONE 25 MG TAB PO SCH (13:24)
[2017-03-13 16:54] LABS: Glucose,Whole Blood 142 mg/dL (75-99)
[2017-03-13] MEDS: amLODIPine 10 MG TAB PO SCH (18:05)
[2017-03-13] MEDS: MONTELUKAST 10 MG TAB PO SCH (18:05)
[2017-03-13] MEDS: methylPREDNISolone SOD SUCCI 40 MG/ML 1 ML VIAL IV SCH ×2 (18:10→23:14)
[2017-03-13 21:00] LABS: Glucose,Whole Blood 170 mg/dL (75-99)
[2017-03-14 06:18] LABS: Basophils % (A) 0 %; CH 28.7; CHCM 30.7; Eosinophils % (A) 0 %; HCT 51.6 % (34.0-46.0); HDW 2.74; HGB 16.1 gm/dL (11.4-16.0); Hypochromasia Moderate; Luc % (Auto) 1; Lymphocytes # (A) 0.7 k/uL (1.0-4.8); Lymphocytes % (A) 4 %; MCH 29.2 pg (25.0-35.0); MCHC 31.2 g/dL (31.0-37.0); MCV 93.8 fL (80.0-100.0); Mean Platelet Volume 8.9; Monocytes # (A) 0.7 k/uL (0-1.0); Monocytes % (A) 4 %; Neutrophils % (A) 92 %; RDW 14.2 % (11.5-15.5); WBC 17.5 k/uL (3.8-10.6); WBC (Perox) 17.96
[2017-03-14 06:26] LABS: Glucose,Whole Blood 115 mg/dL (75-99)
[2017-03-14 06:31] LABS: Anion Gap 12 mmol/L; Blood Urea Nitrogen 58 mg/dL (7-17); Calcium 9.9 mg/dL (8.4-10.2); Carbon Dioxide 33 mmol/L (22-30); Chloride 94 mmol/L (98-107); Glucose 123 mg/dL (74-99); Non-African American GFR(MDRD) 50 (>60 ml/min/1.73 sqM); Potassium 4.7 mmol/L (3.5-5.1); Sodium 139 mmol/L (137-145)
[2017-03-14] MEDS: ASPIRIN 81 MG CHEW PO SCH (06:57)
[2017-03-14] MEDS: METOPROLOL TARTRATE 50 MG TAB PO SCH ×2 (06:57→16:52)
[2017-03-14] MEDS: cloNIDine HCL 0.1 MG TAB PO SCH ×3 (06:57→20:29)
[2017-03-14] MEDS: INSULIN LISPRO (humaLOG) 300 UNIT/3 ML VIAL SQ SCH ×4 (07:01→20:34)
[2017-03-14] MEDS: FORMOTEROL FUMARATE 20 MCG/2 ML NEBU INHALATION SCH ×2 (08:20→19:56)
[2017-03-14] MEDS: IPRATROPIUM-ALBUTEROL 3 ML NEB INHALATION SCH ×4 (08:20→19:56)
[2017-03-14] MEDS: BUDESONIDE 1 MG/2 ML NEBU INHALATION SCH ×2 (08:20→19:56)
[2017-03-14] MEDS: ACETAMINOPHEN TAB 500 MG TAB PO SCH ×2 (09:00→20:29)
[2017-03-14] MEDS: FUROSEMIDE 10 MG/ML 4 ML VIAL IV SCH ×2 (09:00→20:29)
[2017-03-14] MEDS: methylPREDNISolone SOD SUCCI 40 MG/ML 1 ML VIAL IV SCH ×3 (09:00→23:07)
[2017-03-14] MEDS: APIXABAN 5 MG TAB PO SCH ×2 (09:01→20:29)
[2017-03-14] MEDS ORDERED: METOPROLOL TARTRATE 50 MG TAB PO SCH (09:34)
--- NOTE | 2017-03-14 10:19 | PN ---
DATE OF SERVICE: 03/13/2017 This 67-year-old woman was admitted with CHF acute exacerbation, possibly a combination of chronic obstructive pulmonary disease acute exacerbation and CHF acute exacerbation. With IV Lasix the patient has diuresed significantly. The patient's weight has also improved from 181 kg to 177.5. kg. The patient is in negative fluid balance. PAST MEDICAL HISTORY: Reviewed. REVIEW OF SYSTEMS: CARDIOVASCULAR: S1 and S2 muffled. RESPIRATORY: As mentioned. GI: As mentioned. : No dysuria or hematuria. 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 Current medications reviewed and include: 1. Tylenol 1000 mg p.o. b.i.d. 2. Ativan. 3. Norvasc 10 mg p.o. daily. 4. Eliquis 5 mg p.o. b.i.d. 5. Aspirin 81 mg. 6. Pulmicort 1 mg. 7. Rocephin 1 gram IV daily. 8. Catapres. 9. Perforomist. 10. Lasix. 11. Humalog. 12. Solumedrol 40 IV every 8. 13. Lopressor. 14. Singulair. 15. Multivitamin. 16. Aldactone. PHYSICAL EXAMINATION: The patient is alert, oriented x3. Pulse 120, blood pressure 132/61, respirations 16, temperature 98.4, pulse ox is 90% on 4 L. HEENT: Oral mucosa moist. NECK: No JVD. No carotid bruits. No lymph node enlargement. CARDIOVASCULAR: S1 and S2. LUNGS: Breath sounds diminished at the bases. Few scattered rhonchi and wheezes. ABDOMEN: Soft, obese, nontender. No masses palpable. EXTREMITIES: No edema. LABS: Creatinine 1.12. UA noted. ASSESSMENT: 1. Shortness of breath, possibly multifactorial with chronic obstructive pulmonary disease acute exacerbation as well as congestive heart failure, acute exacerbation, acute on chronic diastolic dysfunction, ejection 50% to 60% with acute hypoxic respiratory failure, present on admission. 2. Acute purulent tracheobronchitis. 3. Increased creatinine with chronic kidney disease stage 3. 4. Urinary tract infection. 5. History of atrial fibrillation, chronic, persistent. 6. Atrial fibrillation with fast ventricular rate. 7. History of asthma and COPD. 8. History of gastrointestinal bleed. 9. History of hypertension. 10. History of diverticulitis. 11. History of cellulitis of both lower extremities. 12. History of chronic hypoxic respiratory failure, on 2 to 3 liters nasal cannula. 13. History of duodenal ulcer. 14. History of cholecystitis. 15. History of claustrophobia. 16. History of gait dysfunction. 17. FULL CODE. RECOMMENDATIONS: Recommended to continue current medications. Continue symptomatic treatment. Otherwise, at this time monitor fluids and electrolytes closely. Continue with current antibiotics. Continue with steroids. We will taper the diuretics to 40 mg twice daily and continue to taper the steroids. Otherwise, monitor electrolytes closely. Guarded prognosis because of the multiple complex medical issues. Further recommendations to follow. Pulmonary and cardiology input appreciated. Further recommendations to follow. Discussed with the patient and family. Further recommendations to follow.
--- NOTE | 2017-03-14 11:12 | PN ---
Tanna is doing well. She is a 67-year-old female who came in with COPD exacerbation, pneumonitis and heart failure. 2-D echo ( ). In the past, she has an ejection fraction of about 40%. A repeat 2-D echo showed a left ventricular ejection fraction ( ). She also has persistent rate controlled atrial fibrillation on a total of 200 mg of metoprolol a day in separate doses of 150 mg in the morning and 50 mg in the evening. From a heart failure standpoint, she is actually doing better. Her lower extremity edema is better, her breathing is better. She continues to have cough and expectoration and has been treated with IV antibiotics. IMPRESSION: 1. Persistent rate controlled atrial fibrillation no evidence for cardiomyopathy. No diastolic heart failure. 2. Morbid obesity. 3. Hypertension. SUGGEST: Continue anticoagulation with Apixaban, continue antihypertensive therapy. Continue IV Lasix 40 mg q.12 along with Spironolactone. Continue rate control for atrial fibrillation. We will be the following her through this admission.
--- NOTE | 2017-03-14 12:23 | P.PN ---
Subjective Principal diagnosis: Acute systolic congestive heart failure and acute exacerbation of COPD. Acute on chronic hypoxic respiratory failure. This is a very pleasant 67-year-old female patient who follows with Dr. Agee and has a known history of atrial fibrillation, congestive heart failure, GI bleed, hypertension, diverticulitis, cellulitis of the lower extremities. She also has a history of oxygen dependent chronic obstructive pulmonary disease and follows in our office for the same. She is a former smoker but quit back in 2013. She is maintained on Advair and DuoNeb inhalations. She presented to the emergency room yesterday after feeling short of breath over the past several days. She had noted her O2 saturations to be dropping into the 80s despite increasing her oxygen from 2 L to 4 L. He denied any other symptoms no cough, congestion chills or night sweats. No recent illness. No recent travel. Her chest x-ray revealed evidence of mild congestive heart failure. Echocardiogram is pending. ProBNP 3200. Troponins are negative. No leukocytosis. No anemia. Her urinalysis does reveal positive nitrates, moderate bacteria and large leukocytes. She has been initiated on Lasix 40 mg IV every 8 hours and is currently in a -2 L balance. Presently, she is awake and alert in no acute distress. She states she is already breathing easier today as compared to yesterday. She continues to deny any cough or congestion. She is requiring 15 L of high flow nasal cannula to maintain O2 saturations in the low 90s. Patient was reevaluated today on 03/13/2017, feeling better, breathing easier. Less shortness of breath, no cough, no wheezing, no chest pain. On 03/06/2017, patient continues to do relatively well. Less shortness of breath , no cough no wheezing, no chest pain. Labs were reviewed WBC count is 17.5 hemoglobin 16.1. Electrolytes were reviewed BUN is 58 creatinine is 1.10. Objective - Vital Signs Vital signs: Vital Signs Temp 97.2 F L 03/14/17 08:00 Pulse 96 03/14/17 12:20 Resp 18 03/14/17 08:00 BP 118/76 03/14/17 08:00 Pulse Ox 91 L 03/14/17 08:00 Intake & Output 03/13/17 03/14/17 03/14/17 18:59 06:59 18:59 Intake Total 236 750 337 Output Total 3250 1800 Balance -6684 1050 337 Weight 177.5 kg Intake: Intake, IV Titration 50 Amount cefTRIAXone 1,000 mg In 50 Sodium Chloride 0.9% 50 ml @ 100 mls/hr IVPB Q24H [facility] Rx#:[id number] Oral 236 700 337 Output: Urine 3250 1800 Other: Voiding Method Indwelling Catheter Indwelling Catheter Indwelling Catheter # Bowel Movements 0 - Exam GENERAL EXAM: Morbidly obese. Alert, comfortable in no apparent distress. HEAD: Normocephalic. EYES: Normal reaction of pupils, equal size. NOSE: Clear with pink turbinates. THROAT: There is crowding of the posterior pharynx. No erythema or exudates. NECK: Short. No masses, no JVD. CHEST: No chest wall deformity. LUNGS: Equal air entry with crackles in the bilateral posterior bases. Diminished. CVS: S1 and S2 normal with no audible murmurs, irregular rhythm. ABDOMEN: Obese, soft, normal bowel sounds, no guarding or rigidity. SPINE: No scoliosis or deformity SKIN: No rashes CENTRAL NERVOUS SYSTEM: No focal deficits, tone is normal in all 4 extremities. Extremities: There are wraps to the bilateral lower extremities with weeping. 2- 3+ peripheral edema. No clubbing, no cyanosis. Peripheral pulses are intact. - Labs CBC & Chem 7: 03/14/17 05:42 03/14/17 05:42 Labs: Abnormal Lab Results - Last 24 Hours (Table) 03/13/17 03/13/17 03/14/17 Range/Units 16:45 20:57 05:42 WBC (3.8-10.6) k/uL RBC (3.80-5.40) m/uL Hgb (11.4-16.0) gm/dL Hct (34.0-46.0) % Neutrophils # (1.3-7.7) k/uL Lymphocytes # (1.0-4.8) k/uL Chloride 94 L (98-107) mmol/L Carbon Dioxide 33 H (22-30) mmol/L BUN 58 H (7-17) mg/dL Creatinine 1.10 H (0.52-1.04) mg/dL Glucose 123 H (74-99) mg/dL POC Glucose (mg/dL) 142 H 170 H (75-99) mg/dL 03/14/17 03/14/17 Range/Units 05:42 06:24 WBC 17.5 H (3.8-10.6) k/uL RBC 5.50 H (3.80-5.40) m/uL Hgb 16.1 H (11.4-16.0) gm/dL Hct 51.6 H (34.0-46.0) % Neutrophils # 16.0 H (1.3-7.7) k/uL Lymphocytes # 0.7 L (1.0-4.8) k/uL Chloride (98-107) mmol/L Carbon Dioxide (22-30) mmol/L BUN (7-17) mg/dL Creatinine (0.52-1.04) mg/dL Glucose (74-99) mg/dL POC Glucose (mg/dL) 115 H (75-99) mg/dL Microbiology - Last 24 Hours (Table) 03/12/17 15:35 Urine Culture - Preliminary Urine,Catheterized Gram Neg Bacilli 03/12/17 14:46 Blood Culture - Preliminary Blood No Growth after 24 hours Assessment and Plan Plan: #1 Acute exacerbation of chronic suspected systolic congestive heart failure. Echocardiogram pending. Previous echocardiogram revealed evidence of impaired left ventricular systolic function with estimated ejection fraction of 40% and severe pulmonary hypertension. #2 Acute exacerbation of chronic obstructive pulmonary disease. #3 Acute on chronic hypoxic respiratory failure secondary to above. #4 Atrial fibrillation, anticoagulated with Xarelto. #5 Morbid obesity, suspect obesity/hypoventilation syndrome/obstructive sleep apnea. #6 Urinary tract infection. #7 Mild acute renal failure, creatinine 1.06. #8 Cellulitis of the lower extremities. #9 History of vaginal bleed. #10 History of GI bleed. #11 Hypertension. Recommendation: Continue present treatment plan including diuretics, bronchodilators, steroids, consider discharge planning in the next 2- days. And follow-up on outpatient basis as scheduled. Time with Patient: Less than 30
[2017-03-14] MEDS: MULTIVITAMINS, THERA 1 EACH TAB PO SCH (12:31)
[2017-03-14] MEDS: LOSARTAN 25 MG TAB PO SCH (12:31)
[2017-03-14] MEDS: SPIRONOLACTONE 25 MG TAB PO SCH (12:31)
[2017-03-14 12:38] LABS: Glucose,Whole Blood 103 mg/dL (75-99)
[2017-03-14 16:49] LABS: Glucose,Whole Blood 102 mg/dL (75-99)
[2017-03-14] MEDS: MONTELUKAST 10 MG TAB PO SCH (16:52)
[2017-03-14] MEDS: amLODIPine 10 MG TAB PO SCH (16:52)
--- NOTE | 2017-03-14 19:01 | XR ---
EXAMINATION TYPE: XR chest 1V portable DATE OF EXAM: 03/14/2017 6:53 PM COMPARISON: 03/11/2017 HISTORY: Heart failure short of breath TECHNIQUE: Single frontal view of the chest is obtained. FINDINGS: Heart is enlarged. There is mild pulmonary vascular congestion. There are chest leads. The re is no definite pleural effusion. IMPRESSION: There is evidence for mild heart failure that is improved compared to last exam. There i s decrease in pulmonary edema.
[2017-03-14 20:35] LABS: Glucose,Whole Blood 110 mg/dL (75-99)
[2017-03-15 05:58] LABS: Glucose,Whole Blood 111 mg/dL (75-99)
[2017-03-15 06:14] LABS: Basophils % (A) 0 %; CH 28.7; CHCM 30.6; Eosinophils % (A) 0 %; HCT 52.3 % (34.0-46.0); HDW 2.65; HGB 15.9 gm/dL (11.4-16.0); Hypochromasia Moderate; Luc # (Auto) 0.08; Luc % (Auto) 1; Lymphocytes # (A) 0.6 k/uL (1.0-4.8); Lymphocytes % (A) 4 %; MCH 28.8 pg (25.0-35.0); MCHC 30.5 g/dL (31.0-37.0); MCV 94.5 fL (80.0-100.0); Mean Platelet Volume 8.8; Monocytes # (A) 0.6 k/uL (0-1.0); Monocytes % (A) 4 %; Neutrophils # (A) 12.6 k/uL (1.3-7.7); Neutrophils % (A) 91 %; RBC 5.53 m/uL (3.80-5.40); RDW 14.2 % (11.5-15.5); WBC 13.8 k/uL (3.8-10.6); WBC (Perox) 14.47
[2017-03-15] MEDS: ASPIRIN 81 MG CHEW PO SCH (06:35)
[2017-03-15] MEDS: INSULIN LISPRO (humaLOG) 300 UNIT/3 ML VIAL SQ SCH ×4 (06:35→21:08)
[2017-03-15] MEDS: cloNIDine HCL 0.1 MG TAB PO SCH ×3 (06:35→21:08)
[2017-03-15] MEDS: METOPROLOL TARTRATE 50 MG TAB PO SCH ×2 (06:35→16:50)
[2017-03-15] MEDS: FORMOTEROL FUMARATE 20 MCG/2 ML NEBU INHALATION SCH ×2 (07:41→19:41)
[2017-03-15] MEDS: IPRATROPIUM-ALBUTEROL 3 ML NEB INHALATION SCH ×4 (07:41→19:41)
[2017-03-15] MEDS: BUDESONIDE 1 MG/2 ML NEBU INHALATION SCH ×2 (07:41→19:41)
[2017-03-15] MEDS: methylPREDNISolone SOD SUCCI 40 MG/ML 1 ML VIAL IV SCH (07:54)
[2017-03-15] MEDS: ACETAMINOPHEN TAB 500 MG TAB PO SCH ×2 (07:54→21:08)
[2017-03-15] MEDS: APIXABAN 5 MG TAB PO SCH ×2 (07:54→21:08)
[2017-03-15] MEDS: FUROSEMIDE 10 MG/ML 4 ML VIAL IV SCH (07:55)
--- NOTE | 2017-03-15 09:52 | PN ---
Tanna is doing well. She is taking a breathing treatment. She denies any chest discomfort. Her breathing is a lot better. Lower extremity edema has improved. BUN is 15, creatinine is 1.1. Vital signs are stable. She is afebrile, 97.6 degrees Fahrenheit. Pulse is about 108. She has atrial fibrillation, persistent. She has been rate controlled. Currently she is on an inhaler and nebulizer. Blood pressure 109/78 millimeters of Hg. Breath sounds are reduced bilaterally. Heart sounds S1 and S2 are distant. ABDOMEN: Soft. EXTREMITIES: Warm, with edema. LV function has normalized. Suggest: Blood pressure control with ( )medications, rate control with metoprolol a total of 200 mg a day. I would not change this at time and I will re-evaluate her as an outpatient once pulmonary issues are addressed. She is currently admitted with tracheobronchitis/pneumonitis and is on IV antibiotics. Continue heart failure medications. SUGGEST: Lasix is currently IV 40 mg q.12. At home, she takes 40 mg a day. Tomorrow I would switch her to p.o. Lasix 40 mg twice daily.
--- NOTE | 2017-03-15 10:34 | PN ---
DATE OF SERVICE: 03/14/2017 This 67-year-old woman was admitted with congestive heart failure acute exacerbation is being closely monitored at this time. The patient also had COPD as well. The patient has significant increase in the urine output. No chest pain. No palpitations. No fever. On exam, alert and oriented x3. The pulse is 60, blood pressure 120/81, respirations 18, temperature 97 degrees, pulse 88% on 4-L. HEENT: Conjunctivae normal. Oral mucosa moist. NECK: No jugular venous distention. No carotid bruit. No lymph node enlargement. CARDIOVASCULAR: S1 and S2, muffled. RESPIRATORY: Breath sounds diminished at the bases. Bilateral scattered rhonchi and crackles. ABDOMEN: Soft, obese, nontender. LEGS: No edema, no swelling. NERVOUS SYSTEM: No focal deficits. LABS: WBC 7, hemoglobin 16.6. Accu-Cheks noted. ASSESSMENT: 1. Shortness of breath, multifactorial with acute exacerbation, exacerbation with acute on chronic diastolic dysfunction, ejection fraction 50% to 60% with acute hypoxic respiratory failure, present on admission. 2. Acute purulent tracheobronchitis. 3. Increased creatinine with chronic kidney disease stage III. 4. Urinary tract infection. 5. History of atrial fibrillation, chronic persistent. 6. Atrial fibrillation with fast ventricular rate. 7. History of asthma and chronic obstructive pulmonary disease. 8. History of gastrointestinal bleed. 9. History of hypertension, essential. 10. History of diverticulitis. 11. History of cellulitis of both lower extremities. 12. History of chronic hypoxic respiratory failure in 2 to 3 liters nasal cannula at home. 13. History of duodenal ulcer. 14. History of cholecystectomy. 15. History of claustrophobia. 16. History of gait dysfunction. 17. FULL CODE. RECOMMENDATIONS AND DISCUSSION: I recommend to continue the current medications, continue monitoring and symptomatic treatment. Continue with bronchodilators, continue with steroids. Continue to follow closely with Dr. Joshi and Cardiology. Lasix dose has been reduced. The creatinine is stabilized. I would recommend a repeat chest x-ray and continue to monitor. Further recommendations to follow. MTDD
--- NOTE | 2017-03-15 11:33 | P.PN ---
Subjective Principal diagnosis: Acute systolic congestive heart failure and acute exacerbation of COPD. Acute on chronic hypoxic respiratory failure. This is a very pleasant 67-year-old female patient who follows with Dr. Agee and has a known history of atrial fibrillation, congestive heart failure, GI bleed, hypertension, diverticulitis, cellulitis of the lower extremities. She also has a history of oxygen dependent chronic obstructive pulmonary disease and follows in our office for the same. She is a former smoker but quit back in 2013. She is maintained on Advair and DuoNeb inhalations. She presented to the emergency room yesterday after feeling short of breath over the past several days. She had noted her O2 saturations to be dropping into the 80s despite increasing her oxygen from 2 L to 4 L. He denied any other symptoms no cough, congestion chills or night sweats. No recent illness. No recent travel. Her chest x-ray revealed evidence of mild congestive heart failure. Echocardiogram is pending. ProBNP 3200. Troponins are negative. No leukocytosis. No anemia. Her urinalysis does reveal positive nitrates, moderate bacteria and large leukocytes. She has been initiated on Lasix 40 mg IV every 8 hours and is currently in a -2 L balance. Presently, she is awake and alert in no acute distress. She states she is already breathing easier today as compared to yesterday. She continues to deny any cough or congestion. She is requiring 15 L of high flow nasal cannula to maintain O2 saturations in the low 90s. Patient was reevaluated today on 03/13/2017, feeling better, breathing easier. Less shortness of breath, no cough, no wheezing, no chest pain. On 03/14/2017,, patient continues to do relatively well. Less shortness of breath, no cough no wheezing, no chest pain. Labs were reviewed WBC count is 17.5 hemoglobin 16.1. Electrolytes were reviewed BUN is 58 creatinine is 1.10. On 03/15/2017, patient continues to do well, chest x-ray is showing better aeration, and less pulmonary edema. Clinically the patient is breathing easier , no cough no wheezing, and shortness of breath is significantly improved. CBC today is relatively normal. Electrolytes from yesterday showed slight prerenal azotemia. Chest x-ray today was reviewed and discussed with the patient. Objective - Vital Signs Vital signs: Vital Signs Temp 97.6 F 03/15/17 08:00 Pulse 108 H 03/15/17 08:02 Resp 18 03/15/17 08:00 BP 109/78 03/15/17 08:00 Pulse Ox 91 L 03/15/17 08:00 Intake & Output 03/14/17 03/15/17 03/15/17 18:59 06:59 18:59 Intake Total 574 840 240 Output Total 1000 Balance -426 840 240 Weight 177.72 kg Intake: IV 340 0.9 340 Intake, IV Titration 500 Amount cefTRIAXone 1,000 mg In 500 Sodium Chloride 0.9% 50 ml @ 100 mls/hr IVPB Q24H [facility] Rx#:[id number] Oral 574 240 Output: Urine 1000 Other: Voiding Method Indwelling Catheter Indwelling Catheter Indwelling Catheter - Exam GENERAL EXAM: Morbidly obese. Alert, comfortable in no apparent distress. HEAD: Normocephalic. EYES: Normal reaction of pupils, equal size. NOSE: Clear with pink turbinates. THROAT: There is crowding of the posterior pharynx. No erythema or exudates. NECK: Short. No masses, no JVD. CHEST: No chest wall deformity. LUNGS: Equal air entry no crackles, no rhonchi, no wheezes. CVS: S1 and S2 normal with no audible murmurs, irregular rhythm. ABDOMEN: Obese, soft, normal bowel sounds, no guarding or rigidity. SPINE: No scoliosis or deformity SKIN: No rashes CENTRAL NERVOUS SYSTEM: No focal deficits, tone is normal in all 4 extremities. Extremities: There are wraps to the bilateral lower extremities with weeping. 1 + peripheral edema. No clubbing, no cyanosis. Peripheral pulses are intact. - Labs CBC & Chem 7: 03/15/17 05:21 03/14/17 05:42 Labs: Abnormal Lab Results - Last 24 Hours (Table) 03/14/17 03/14/17 03/14/17 Range/Units 12:37 16:43 20:34 WBC (3.8-10.6) k/uL RBC (3.80-5.40) m/uL Hct (34.0-46.0) % MCHC (31.0-37.0) g/dL Neutrophils # (1.3-7.7) k/uL Lymphocytes # (1.0-4.8) k/uL POC Glucose (mg/dL) 103 H 102 H 110 H (75-99) mg/dL TSH (0.465-4.680) mIU/L 03/15/17 03/15/17 03/15/17 Range/Units 05:21 05:21 05:57 WBC 13.8 H (3.8-10.6) k/uL RBC 5.53 H (3.80-5.40) m/uL Hct 52.3 H (34.0-46.0) % MCHC 30.5 L (31.0-37.0) g/dL Neutrophils # 12.6 H (1.3-7.7) k/uL Lymphocytes # 0.6 L (1.0-4.8) k/uL POC Glucose (mg/dL) 111 H (75-99) mg/dL TSH 0.210 L (0.465-4.680) mIU/L Microbiology - Last 24 Hours (Table) 03/12/17 15:35 Urine Culture - Final Urine,Catheterized Escherichia coli 03/12/17 14:46 Blood Culture - Preliminary Blood No Growth after 48 hours Assessment and Plan Plan: #1 Acute exacerbation of chronic suspected systolic congestive heart failure. Echocardiogram pending. Previous echocardiogram revealed evidence of impaired left ventricular systolic function with estimated ejection fraction of 40% and severe pulmonary hypertension. #2 Acute exacerbation of chronic obstructive pulmonary disease. #3 Acute on chronic hypoxic respiratory failure secondary to above. #4 Atrial fibrillation, anticoagulated with Xarelto. #5 Morbid obesity, suspect obesity/hypoventilation syndrome/obstructive sleep apnea. #6 Urinary tract infection. #7 Mild acute renal failure, creatinine 1.06. #8 Cellulitis of the lower extremities. #9 History of vaginal bleed. #10 History of GI bleed. #11 Hypertension. Recommendation: Continue present treatment plan including diuretics, bronchodilators, steroids, consider discharge planning today, and follow-up on outpatient basis. Patient was cleared from the pulmonary perspective for discharge planning hopefully today if felt appropriate by the admitting physician and cardiology. Time with Patient: Less than 30
[2017-03-15 11:49] LABS: Glucose,Whole Blood 128 mg/dL (75-99)
[2017-03-15] MEDS: MULTIVITAMINS, THERA 1 EACH TAB PO SCH (12:18)
[2017-03-15] MEDS: LOSARTAN 25 MG TAB PO SCH (12:18)
[2017-03-15] MEDS: SPIRONOLACTONE 25 MG TAB PO SCH (12:18)
[2017-03-15 13:35] LABS: Potassium 4.2 mmol/L (3.5-5.1)
[2017-03-15 16:48] LABS: Glucose,Whole Blood 112 mg/dL (75-99)
[2017-03-15] MEDS: MONTELUKAST 10 MG TAB PO SCH (16:50)
[2017-03-15] MEDS: amLODIPine 10 MG TAB PO SCH (16:50)
[2017-03-15 20:50] LABS: Glucose,Whole Blood 108 mg/dL (75-99)
[2017-03-15] MEDS: ceFAZolin 2 GM in SODIUM CHLORIDE 0.9% 100 ML IVPB SCH (23:07)
[2017-03-16 05:36] LABS: Glucose,Whole Blood 98 mg/dL (75-99)
[2017-03-16] MEDS: INSULIN LISPRO (humaLOG) 300 UNIT/3 ML VIAL SQ SCH ×2 (05:51→12:22)
[2017-03-16 06:04] LABS: Basophils % (A) 0 %; CH 28.7; CHCM 30.4; Eosinophils % (A) 0 %; HCT 53.2 % (34.0-46.0); HDW 2.62; HGB 16.2 gm/dL (11.4-16.0); Hypochromasia Moderate; Luc # (Auto) 0.31; Luc % (Auto) 2; Lymphocytes # (A) 0.8 k/uL (1.0-4.8); Lymphocytes % (A) 6 %; MCH 28.8 pg (25.0-35.0); MCHC 30.4 g/dL (31.0-37.0); MCV 94.8 fL (80.0-100.0); Mean Platelet Volume 8.8; Monocytes % (A) 7 %; Neutrophils # (A) 11.3 k/uL (1.3-7.7); Neutrophils % (A) 84 %; RBC 5.61 m/uL (3.80-5.40); RDW 14.1 % (11.5-15.5); WBC 13.3 k/uL (3.8-10.6); WBC (Perox) 13.26
[2017-03-16 06:14] LABS: Calcium 9.5 mg/dL (8.4-10.2); Potassium 4.3 mmol/L (3.5-5.1)
[2017-03-16] MEDS: ASPIRIN 81 MG CHEW PO SCH (06:21)
[2017-03-16] MEDS: METOPROLOL TARTRATE 50 MG TAB PO SCH (06:21)
[2017-03-16] MEDS: cloNIDine HCL 0.1 MG TAB PO SCH ×2 (06:21→12:32)
[2017-03-16] MEDS: IPRATROPIUM-ALBUTEROL 3 ML NEB INHALATION SCH ×2 (08:01→11:31)
[2017-03-16] MEDS: BUDESONIDE 1 MG/2 ML NEBU INHALATION SCH (08:02)
[2017-03-16] MEDS: FORMOTEROL FUMARATE 20 MCG/2 ML NEBU INHALATION SCH (08:02)
--- NOTE | 2017-03-16 08:30 | PN ---
DATE OF SERVICE: 03/15/2017 This 67-year-old woman who was admitted with shortness of breath and as well as congestive heart failure acute exacerbation is improving significantly. No chest pain or palpitations. No fever. On examination, the patient is alert and oriented x3. Pulse is 105, blood pressure 118/73, respirations 18, temperature 98 degrees, pulse ox 93% on 5 L. HEENT: Conjunctivae normal. NECK: No jugular venous distention. CARDIOVASCULAR: S1 and S2, muffled. RESPIRATORY: Breath sounds diminished at the bases. A few scattered rhonchi. ABDOMEN: Soft, nontender. LEGS: No edema, no swelling. NERVOUS SYSTEM: neg. LABS: WBC 13.8. Creatinine is 1.27. ASSESSMENT: 1. Shortness of breath, multifactorial with congestive heart failure, acute exacerbation, acute on chronic diastolic dysfunction, ejection fraction 50% to 60% with acute hypoxic respiratory failure, present on admission. 2. Acute purulent tracheobronchitis. 3. Increased creatinine with chronic kidney disease, stage III. 4. Urinary tract infection. 5. Atrial fibrillation, chronic persistent. 6. Atrial fibrillation with fast ventricular rate. 7. History of asthma, chronic obstructive pulmonary disease. 8. History of gastrointestinal bleed. 9. History of hypertension, essential. 10. History of diverticulitis. 11. History of cellulitis of both lower limbs. 12. history of chronic hypoxic respiratory failure on 2 to 3 L nasal cannula. 13. History of duodenal ulcer. 14. History of cholecystectomy. 15. History of claustrophobia. 16. History of gait dysfunction. 17. FULL CODE. RECOMMENDATIONS AND DISCUSSION: Recommend to continue the current medications. Continue to monitor and symptomatic treatment. Otherwise continue with diuretics, cut down the dose of diuretics, p.o. diuretics, p.o. steroids. Further recommendations to follow. MTDD
[2017-03-16] MEDS: ACETAMINOPHEN TAB 500 MG TAB PO SCH (08:56)
[2017-03-16] MEDS: APIXABAN 5 MG TAB PO SCH (08:56)
[2017-03-16 08:58] VITALS: RESP 20; TEMP 96.9
[2017-03-16] MEDS ORDERED: FUROSEMIDE 40 MG TAB PO SCH (09:00)
[2017-03-16] MEDS ORDERED: predniSONE 20 MG TAB PO SCH (09:00)
[2017-03-16] MEDS: ceFAZolin 2 GM in SODIUM CHLORIDE 0.9% 100 ML IVPB SCH (09:10)
--- NOTE | 2017-03-16 09:13 | CONS ---
DATE OF CONSULTATION: 03/15/2017 REASON FOR CONSULTATION: Lower extremity wound and cellulitis. HISTORY OF PRESENT ILLNESS: The patient is a 67-year-old female presenting to the ER at [facility] on 03/11/2017 with chief complaint of progressive shortness of breath not helped by her home medication. The patient denies significant fever and chills with it. With these symptoms, the patient presented to the ER and evaluated by the ER physician. The patient did have a chest x-ray that showed mild congestive heart failure and increased compared to last exam. The patient has been treated by both Cardiology and Pulmonary services. The patient did have a chronic swelling to the legs with more oozing per the patient and some superficial wounds especially on the left leg with some surrounding dry skin. I was asked to see the patient last evening for further recommendation regarding wound and possible cellulitis. The patient denies any high-grade fever and chills. Patient did have some dull aching pain to it, overall drainage has decreased. Patient's breathing has improved as well. He did have some cough but not bringing up any sputum. No abdominal pain and no diarrhea. REVIEW OF SYSTEMS: Positive for weakness. No high-grade fever. EYES: No complaint. ENT: No complaint. RESPIRATORY: As per HPI. CARDIOVASCULAR: As per HPI. GENITOURINARY: No complaint. GASTROINTESTINAL: No complaint. MUSCULOSKELETAL: No complaint. INTEGUMENTARY: As per HPI. ENDOCRINE: No complaint. NEUROLOGICAL: No complaint. PAST MEDICAL HISTORY: Significant for atrial fibrillation, asthma, heart failure, COPD, GI bleed, hypertension, history of diverticulitis, cellulitis of the leg. 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 SOCIAL HISTORY: Remote history of smoking; quit back in 2013 and no drinking or drug use. FAMILY HISTORY: Father with history of osteoarthritis, of old age. Mother with history of coronary artery disease and diabetes. ALLERGIES: No known drug allergies. Medications currently include the patient is on Tylenol, DuoNeb, Norvasc, Eliquis, aspirin, Pulmicort, Rocephin 1 gram daily, Catapres, Lasix, Humalog, Cozaar, Lopressor, Singulair, Theragran, prednisone and Aldactone. On examination, blood pressure is 114/76 with a pulse of 67, temperature 97.2. She is 91% on 5-L nasal cannula. General description is an elderly female up in the bed in no distress. No tachypnea or accessory muscle of respiration use. HEENT EXAMINATION: No pallor or scleral icterus. Oral mucous membrane dry. NECK: Trachea central. There is no thyromegaly. LUNGS: Unlabored breathing. Clear to auscultation anteriorly. HEART: S1, S2 regular rate and rhythm. ABDOMEN: Soft, no tenderness. No guarding, no rigidity. EXTREMITIES: Chronic swelling on the left leg. She did have superficial ulceration and some dryness of the skin. No significant drainage was noticed. NEUROLOGICAL: The patient is awake, alert and oriented x2. Mood and affect normal. LABS: Hemoglobin is 15.9, white count 13.8, BUN of 16, creatinine 1.27. DIAGNOSTIC IMPRESSION: Patient with venostasis ulcers to the left leg with mild cellulitis not entirely excluded. No evidence of any fluctuation, induration or any abscess formation. PLAN: 1. Will recommend discontinue the Rocephin. 2. Start cefazolin 2 grams q.12 for mild cellulitis. 3. Aquacel silver dressing to the open area and moisturizing cream to dry skin. 4. Errol wrap from just above the toe to below the knee. 5. Will follow with clinical condition and cultures to further adjust the medication if needed. Thank you for this consultation. We will follow this patient along with you. CHRISTIANA
[2017-03-16] MEDS: FUROSEMIDE 40 MG TAB PO SCH ×2 (10:46→12:32)
--- NOTE | 2017-03-16 11:17 | P.PN ---
Subjective Principal diagnosis: Acute on chronic systolic congestive heart failure, acute on chronic COPD exacerbation This is a very pleasant 67-year-old female patient who follows with Dr. Agee and has a known history of atrial fibrillation, congestive heart failure, GI bleed, hypertension, diverticulitis, cellulitis of the lower extremities. She also has a history of oxygen dependent chronic obstructive pulmonary disease and follows in our office for the same. She is a former smoker but quit back in 2013. She is maintained on Advair and DuoNeb inhalations. She presented to the emergency room yesterday after feeling short of breath over the past several days. She had noted her O2 saturations to be dropping into the 80s despite increasing her oxygen from 2 L to 4 L. He denied any other symptoms no cough, congestion chills or night sweats. No recent illness. No recent travel. Her chest x-ray revealed evidence of mild congestive heart failure. Echocardiogram is pending. ProBNP 3200. Troponins are negative. No leukocytosis. No anemia. Her urinalysis does reveal positive nitrates, moderate bacteria and large leukocytes. She has been initiated on Lasix 40 mg IV every 8 hours and is currently in a -2 L balance. Presently, she is awake and alert in no acute distress. She states she is already breathing easier today as compared to yesterday. She continues to deny any cough or congestion. She is requiring 15 L of high flow nasal cannula to maintain O2 saturations in the low 90s. Patient was reevaluated today on 03/13/2017, feeling better, breathing easier. Less shortness of breath, no cough, no wheezing, no chest pain. On 03/14/2017,, patient continues to do relatively well. Less shortness of breath, no cough no wheezing, no chest pain. Labs were reviewed WBC count is 17.5 hemoglobin 16.1. Electrolytes were reviewed BUN is 58 creatinine is 1.10. On 03/15/2017, patient continues to do well, chest x-ray is showing better aeration, and less pulmonary edema. Clinically the patient is breathing easier , no cough no wheezing, and shortness of breath is significantly improved. CBC today is relatively normal. Electrolytes from yesterday showed slight prerenal azotemia. Chest x-ray today was reviewed and discussed with the patient. The patient was seen again today 03/16/2017 in follow-up on the selective care unit. She is awake and alert in no acute distress. She states she is back to her baseline as far as her breathing is concerned. Most recent chest x-ray revealed improved aeration and less pulmonary edema. He is maintaining good O2 saturations in the mid 90s on 5 L/m per nasal cannula. She's been afebrile. Hemodynamically stable. Currently in a negative balance. Urine culture was positive for E. coli. Cultures revealed no growth. He count is improved. Renal function stable. Objective - Vital Signs Vital signs: Vital Signs Temp 96.9 F L 03/16/17 08:57 Pulse 80 03/16/17 08:57 Resp 20 03/16/17 08:57 BP 107/80 03/16/17 08:57 Pulse Ox 94 L 03/16/17 08:57 Intake & Output 03/15/17 03/16/17 03/16/17 18:59 06:59 18:59 Intake Total 680 1000 360 Output Total 2500 1350 Balance -1820 -350 360 Weight 178 kg Intake: IV 320 0.9 320 Intake, IV Titration 200 Amount ceFAZolin 2 gm In Sodium 200 Chloride 0.9% 100 ml @ 100 mls/hr IVPB Q8HR [facility] Rx#:[id number] Oral 680 480 360 Output: Urine 2500 1350 Other: Voiding Method Indwelling Catheter Indwelling Catheter Indwelling Catheter # Voids 1 - Exam GENERAL EXAM: Morbidly obese. Alert, comfortable in no apparent distress. HEAD: Normocephalic. EYES: Normal reaction of pupils, equal size. NOSE: Clear with pink turbinates. THROAT: There is crowding of the posterior pharynx. No erythema or exudates. NECK: Short. No masses, no JVD. CHEST: No chest wall deformity. LUNGS: Equal air entry no crackles, no rhonchi, no wheezes. CVS: S1 and S2 normal with no audible murmurs, irregular rhythm. ABDOMEN: Obese, soft, normal bowel sounds, no guarding or rigidity. SPINE: No scoliosis or deformity SKIN: No rashes CENTRAL NERVOUS SYSTEM: No focal deficits, tone is normal in all 4 extremities. Extremities: There are wraps to the bilateral lower extremities with weeping. 1 + peripheral edema. No clubbing, no cyanosis. Peripheral pulses are intact. - Labs CBC & Chem 7: 03/16/17 05:43 03/16/17 05:43 Labs: Abnormal Lab Results - Last 24 Hours (Table) 03/15/17 03/15/17 03/15/17 Range/Units 05:21 11:47 16:46 WBC (3.8-10.6) k/uL RBC (3.80-5.40) m/uL Hgb (11.4-16.0) gm/dL Hct (34.0-46.0) % MCHC (31.0-37.0) g/dL Neutrophils # (1.3-7.7) k/uL Lymphocytes # (1.0-4.8) k/uL Chloride 95 L (98-107) mmol/L Carbon Dioxide 34 H (22-30) mmol/L BUN 69 H (7-17) mg/dL Creatinine 1.27 H (0.52-1.04) mg/dL Glucose 126 H (74-99) mg/dL POC Glucose (mg/dL) 128 H 112 H (75-99) mg/dL 03/15/17 03/16/17 03/16/17 Range/Units 20:49 05:43 05:43 WBC 13.3 H (3.8-10.6) k/uL RBC 5.61 H (3.80-5.40) m/uL Hgb 16.2 H (11.4-16.0) gm/dL Hct 53.2 H (34.0-46.0) % MCHC 30.4 L (31.0-37.0) g/dL Neutrophils # 11.3 H (1.3-7.7) k/uL Lymphocytes # 0.8 L (1.0-4.8) k/uL Chloride 95 L (98-107) mmol/L Carbon Dioxide 37 H (22-30) mmol/L BUN 71 H (7-17) mg/dL Creatinine 1.27 H (0.52-1.04) mg/dL Glucose 104 H (74-99) mg/dL POC Glucose (mg/dL) 108 H (75-99) mg/dL Microbiology - Last 24 Hours (Table) 03/12/17 14:46 Blood Culture - Preliminary Blood No Growth after 72 hours Assessment and Plan Plan: Impression: #1 Acute exacerbation of chronic suspected systolic congestive heart failure. Echocardiogram pending. Previous echocardiogram revealed evidence of impaired left ventricular systolic function with estimated ejection fraction of 40% and severe pulmonary hypertension. #2 Acute exacerbation of chronic obstructive pulmonary disease. #3 Acute on chronic hypoxic respiratory failure secondary to above. #4 Atrial fibrillation, anticoagulated with Xarelto. #5 Morbid obesity, suspect obesity/hypoventilation syndrome/obstructive sleep apnea. #6 Urinary tract infection. #7 Mild acute renal failure, creatinine 1.27. #8 Cellulitis of the lower extremities. #9 History of vaginal bleed. #10 History of GI bleed. #11 Hypertension. Plan: The patient was seen and evaluated by Dr. Bartlett. Her chest x-ray and labs were reviewed. She is cleared for discharge from the pulmonary standpoint. We'll continue with her pulmonary medications including a prednisone taper and complete her course of antibiotics. She remains anticoagulated with Xarelto. Follow-up in our office in 1-2 weeks' time. We'll repeat a chest x-ray then. She is however encouraged to call sooner with any recurrence of symptoms or other questions or concerns..
--- NOTE | 2017-03-16 11:35 | P.PN ---
Subjective Principal diagnosis: This is a 67-year-old female with history of hypertension, morbid obesity, chronic persistent atrial fibrillation, COPD, asthma, she presents to the hospital with symptoms of progressively worsening shortness of breath. Patient does use home O2, she denies any chest discomfort. She is also currently receiving treatment for infection in both of her lower extremities. Patient does have chronic persistent atrial fibrillation and is on Xarelto at home, upon interviewing her this morning, the patient states that she intermittently stops taking her xarelto because of vaginal bleeding. It was explained to her in detail that the risk for stroke increases if she suddenly stops taking her xarelto. We will try her on Eliquis. EKG on admission shows atrial fibrillation with a controlled ventricular response. Chest x-ray reveals mild congestive heart failure. BNP level 3200, troponins negative 3. Potassium 5.0, BUN 40, creatinine 1.0. CBC normal. Positive UTI. Blood pressure on arrival 126/70, oxygen saturation 70% on arrival. At the time of my examination this morning, patient does state that she is feeling somewhat better this morning. She was initiated on IV Lasix in the emergency room. As well as steroids. Her weight today is down 2 kg. Echocardiogram with Doppler study performed in 2014 revealed an ejection fraction of 40%, moderate left atrial enlargement, moderate TR, severe pulmonary hypertension. 03/13/2017 Echo cardiac gram with Doppler study was repeated this admission which revealed an ejection fraction of 55-60%. She diuresed well through the night last night , her weight is down 4 kg today. Creatinine 1.06. We will continue current dose of IV Lasix, continue to monitor intake and output along with daily weights and daily lytes BUN and creatinine. Patient has been approved for Eliquis. 03/16/2017 Patient seen and examined this morning, feeling well overall. Eager to be discharged home today. Patient came in on 40 mg of Lasix daily, are 4 we'll increase that dose to 40 mg one tablet by mouth twice a day on discharge. We' ll make her a follow-up appointment to see Dr. Child back in the office post discharge. Objective - Vital Signs Vital signs: Vital Signs Temp 96.9 F L 03/16/17 08:57 Pulse 80 03/16/17 08:57 Resp 20 03/16/17 08:57 BP 107/80 03/16/17 08:57 Pulse Ox 94 L 03/16/17 08:57 Intake & Output 03/15/17 03/16/17 03/16/17 18:59 06:59 18:59 Intake Total 680 1000 360 Output Total 2500 1350 Balance -1820 -350 360 Weight 178 kg Intake: IV 320 0.9 320 Intake, IV Titration 200 Amount ceFAZolin 2 gm In Sodium 200 Chloride 0.9% 100 ml @ 100 mls/hr IVPB Q8HR [facility] Rx#:[id number] Oral 680 480 360 Output: Urine 2500 1350 Other: Voiding Method Indwelling Catheter Indwelling Catheter Indwelling Catheter # Voids 1 - Exam PHYSICAL EXAMINATION: HEENT: Head is atraumatic, normocephalic. Pupils equal, round. Neck is supple. There is no elevated jugular venous pressure. HEART EXAMINATION: Heart S1 and S2 irregularly irregular CHEST EXAMINATION: Lungs reveal improvement in air entry bilaterally. ABDOMEN: Soft, obese, nontender. Bowel sounds are heard. No organomegaly noted. EXTREMITIES: 1+ peripheral pulses with evidence of peripheral edema and no calf tenderness noted. NEUROLOGIC patient is awake, alert and oriented -3. . - Labs CBC & Chem 7: 03/16/17 05:43 03/16/17 05:43 Labs: Abnormal Lab Results - Last 24 Hours (Table) 03/15/17 03/15/17 03/15/17 Range/Units 05:21 11:47 16:46 WBC (3.8-10.6) k/uL RBC (3.80-5.40) m/uL Hgb (11.4-16.0) gm/dL Hct (34.0-46.0) % MCHC (31.0-37.0) g/dL Neutrophils # (1.3-7.7) k/uL Lymphocytes # (1.0-4.8) k/uL Chloride 95 L (98-107) mmol/L Carbon Dioxide 34 H (22-30) mmol/L BUN 69 H (7-17) mg/dL Creatinine 1.27 H (0.52-1.04) mg/dL Glucose 126 H (74-99) mg/dL POC Glucose (mg/dL) 128 H 112 H (75-99) mg/dL 05/29/17 05/30/17 05/30/17 Range/Units 20:49 05:43 05:43 WBC 13.3 H (3.8-10.6) k/uL RBC 5.61 H (3.80-5.40) m/uL Hgb 16.2 H (11.4-16.0) gm/dL Hct 53.2 H (34.0-46.0) % MCHC 30.4 L (31.0-37.0) g/dL Neutrophils # 11.3 H (1.3-7.7) k/uL Lymphocytes # 0.8 L (1.0-4.8) k/uL Chloride 95 L (98-107) mmol/L Carbon Dioxide 37 H (22-30) mmol/L BUN 71 H (7-17) mg/dL Creatinine 1.27 H (0.52-1.04) mg/dL Glucose 104 H (74-99) mg/dL POC Glucose (mg/dL) 108 H (75-99) mg/dL Microbiology - Last 24 Hours (Table) 03/12/17 14:46 Blood Culture - Preliminary Blood No Growth after 72 hours Assessment and Plan Plan: Assessment and plan #1 diastolic congestive heart failure acute on chronic, echo done this admission revealed an ejection fraction of 55-60%. #2 COPD exacerbation #3 atrial fibrillation with moderately rapid ventricular response, patient has known chronic persistent atrial fibrillation #4 hypertension # 5 morbid obesity Plan We will increase the patient's dose of Lasix to 40 mg by mouth twice a day. She may be able to be discharged home from cardiology's perspective to follow- up with Dr. Child in the office 2 weeks. DNP note has been reviewed, I agree with a documented findings and plan of care. Patient was seen and examined.
[2017-03-16 11:55] LABS: Glucose,Whole Blood 93 mg/dL (75-99)
[2017-03-16 12:18] VITALS: BP 126/77; PULSE 77
[2017-03-16] MEDS: MULTIVITAMINS, THERA 1 EACH TAB PO SCH (12:32)
[2017-03-16] MEDS: LOSARTAN 25 MG TAB PO SCH (12:32)
[2017-03-16] MEDS: SPIRONOLACTONE 25 MG TAB PO SCH (12:32)
--- NOTE | 2017-03-16 16:51 | PN ---
DATE OF SERVICE: 03/16/2017 REASON FOR FOLLOWUP: Lower extremity wound and cellulitis. INTERVAL HISTORY: The patient is afebrile. He is currently feeling better, breathing comfortably. No significant chest pain or cough. Denies significant pain in the left leg area or any drainage from it. On examination, blood pressure is 126/77, pulse of 77, temperature 96.9. She is 92% on 5 L nasal cannula. General description is an elderly female up in the chair in no distress. RESPIRATORY SYSTEM: Unlabored breathing. Clear to auscultation anteriorly. HEART: S1, S2. Regular rate and rhythm. ABDOMEN: Soft. No tenderness. LABS: Hemoglobin 16.2, white count 13.3, BUN of 71, creatinine 1.27. DIAGNOSTIC IMPRESSION AND PLAN: Patient with left lower extremity venostasis ulcer with significant cellulitis. I recommend local wound care with Aquacel Silver and Errol wrap to keep the swelling down. Antibiotic can be switched over to p.o. Keflex 500 mg t.i.d. for another 7 to 10 days to finish course of therapy. Continue supportive care.
--- NOTE | 2017-03-17 07:14 | DS ---
DATE OF ADMISSION: 03/11/2017 DATE OF DISCHARGE: 03/16/2017 FINAL DIAGNOSES: 1. Shortness of breath, multifactorial. 2. Congestive heart failure, acute exacerbation, acute on chronic diastolic dysfunction, ejection fraction 55-60% with acute hypoxic respiratory failure, present on admission. 3. Chronic obstructive pulmonary disease, acute exacerbation. 4. Acute purulent tracheobronchitis. 5. Increased creatinine with chronic kidney disease, stage III. 6. Urinary tract infection. 7. Atrial fibrillation, chronic, persistent with fast ventricular rate present on admission, improved. 8. History of asthma, chronic obstructive pulmonary disease. 9. History on gastrointestinal bleed. 10. History of hypertension, essential. 11. History of diverticulosis. 12. History of cellulitis of both lower limbs. 13. History of chronic hypoxic respiratory failure on 2 to 3 L nasal cannula. 14. History of duodenal ulcer. 15. History of cholecystectomy. 16. History of claustrophobia. 17. History of gait dysfunction. 18. FULL CODE. DISCHARGE DISPOSITION: Patient will be discharged in a stable condition with guarded prognosis. Total time taken 35 minutes. HISTORY OF PRESENT ILLNESS: This 67-year-old woman with a past medical history of multiple medical problems was admitted with shortness of breath, ( ) multifactorial, treated with bronchodilators, steroids and antibiotics and diuretics. The patient improved significantly. On exam, vital signs are stable. Cardiovascular: S1, S2. Respiratory: A few scattered rhonchi. ABDOMEN: Soft. Nervous system: No focal deficits. The patient was seen by multiple consultants, including cardiology and pulmonology and infectious disease. DISCHARGE ADVICE: 1. Diet is cardiac. 2. Activity limited until follow-up. 3. Follow-up with Dr. Agee in 2 to 3 days. 4. Follow-up with Dr. Bartlett and cardiology as recommended. MEDICATIONS: 1. Tylenol 1500 mg p.o. b.i.d. 2. Norvasc 10 mg p.o. daily. 3. Eliquis 5 mg b.i.d. 4. Aspirin 81 mg daily. 5. Catapres 0.1 p.o. t.i.d. 6. Fexofenadine 180 mg p.o. daily. 7. Advair 1 puff b.i.d. 8. Lasix 40 mg daily. 9. Albuterol Atrovent updrafts q.i.d. and p.r.n. 10. Prevacid 15 mg p.o. daily. 11. Cozaar 25 mg p.o. daily. 12. Lopressor 50 mg p.o. daily ( ) and 150 mg daily in the morning. 13. Singulair 10 mg p.o. daily. 14. Multivitamin 1 p.o. daily. 15. Prednisone taper that is 40 mg daily for 3 days, 30 for 3 days, 20 for 3 days, 10 for 3 days and then discontinue. 16. Aldactone 25 mg p.o. daily. 17. Antibiotics per infectious disease.
== END 2017-03-16 14:46 | disposition home or self-care (01) | DRG 291 ==
LOC: EC 15:14 → 6SEL 18:47
PROVIDERS: ADMIT Internal Medicine; ATTEND Internal Medicine
DX: I13.0 Hypertensive heart and chronic kidney disease with heart failure and stage 1 through stage 4 chronic kidney disease, or unspecified chronic kidney disease (principal); I50.23 Acute on chronic systolic (congestive) heart failure; J96.21 Acute and chronic respiratory failure with hypoxia; N17.9 Acute kidney failure, unspecified; I27.2 Other secondary pulmonary hypertension; J44.0 Chronic obstructive pulmonary disease with (acute) lower respiratory infection; L03.115 Cellulitis of right lower limb; Z68.44 Body mass index [BMI] 60.0-69.9, adult; I48.1 Persistent atrial fibrillation; J44.1 Chronic obstructive pulmonary disease with (acute) exacerbation; N39.0 Urinary tract infection, site not specified; L03.116 Cellulitis of left lower limb; L97.929 Non-pressure chronic ulcer of unspecified part of left lower leg with unspecified severity; E66.01 Morbid (severe) obesity due to excess calories; I42.9 Cardiomyopathy, unspecified; N18.3 Chronic kidney disease, stage 3 (moderate); J20.9 Acute bronchitis, unspecified; G47.33 Obstructive sleep apnea (adult) (pediatric); F40.240 Claustrophobia; Z99.81 Dependence on supplemental oxygen; Z87.11 Personal history of peptic ulcer disease; Z90.49 Acquired absence of other specified parts of digestive tract; R26.9 Unspecified abnormalities of gait and mobility; Z79.01 Long term (current) use of anticoagulants; Z87.891 Personal history of nicotine dependence; Z79.51 Long term (current) use of inhaled steroids; Z79.82 Long term (current) use of aspirin; Z79.899 Other long term (current) drug therapy; Z82.49 Family history of ischemic heart disease and other diseases of the circulatory system
CPT/HCPCS: 36415; 51702; 71010; 71020; 80048; 80053; 81001; 82550; 82553; 83735; 83880; 84439; 84443; 84484; 85025; 85610; 85730; 87040; 87077; 87086; 87186; 93005; 93306; 94640; 94760; 96374; 96375; 99291

== ENCOUNTER 2017-07-19 18:42 | Inpatient (IN) | payer MEDICARE, MEDICAID ==
[2017-07-19] MEDS ORDERED: VANCOMYCIN IV PER PHARMACY 1 EACH MISC MISCELLANE PRN (18:59)
[2017-07-19] MEDS ORDERED: ACETAMINOPHEN TAB 500 MG TAB PO STA (18:59)
[2017-07-19] MEDS ORDERED: SODIUM CHLORIDE 0.9% 500 ML IV SCH (19:00)
[2017-07-19] MEDS ORDERED: IPRATROPIUM-ALBUTEROL 3 ML NEB INHALATION STA (19:03)
[2017-07-19] MEDS ORDERED: methylPREDNISolone SOD SUCCI 125 MG/2 ML VIAL IV ONE (19:03)
--- NOTE | 2017-07-19 19:11 | ED ---
SOB HPI - General Stated Complaint: leg pain Time Seen by Provider: 07/19/17 18:44 Source: patient, family (Daughter) Mode of arrival: EMS Limitations: no limitations - History of Present Illness Initial Comments: Patient with a history of COPD, CHF, on 3 L nasal cannula at home, Rola elsie presents with bilateral lower extremity swelling/weeping, shortness of breath. She states symptoms have been progressive over the past 1 month. Patient states she last saw a Dr in February 2017. Patient states shortness of breath worse with exertion, gets mild pressure-like pain substernal with exertion only. Patient states bilateral legs have had an odor and drainage over the past 1 month. States she saw wound care doctor back in February 2017, however currently her daughter takes care of her legs putting wound dressings on them every other day. Patient denies fever, however on arrival to the ER she was noted to be febrile. Patient denies confusion, palpitations, nausea, vomiting, abdominal pain, changes in urination, changes in bowel movements. MD Complaint: shortness of breath Onset/Timin -: month(s) Known History Of: COPD, congestive heart failure Treatments Prior to Arrival: oxygen, diuretics - Related Data Home Medications Medication Instructions Recorded Confirmed Aspirin [Adult Low Dose Aspirin EC] 81 mg PO DAILY@0600 11/18/15 07/19/17 Fluticasone/Salmeterol [Advair 1 puff INHALATION RT-BID 11/18/15 07/19/17 250-50 Diskus] Furosemide 40 mg PO DAILY@0600 11/18/15 07/19/17 Montelukast [Singulair] 10 mg PO DAILY@1700 11/18/15 07/19/17 Multivitamins, Thera [Multivitamin 1 tab PO DAILY 11/18/15 07/19/17 (formulary)] Acetaminophen Tab [Tylenol Tab] 1,500 mg PO BID 03/11/17 07/19/17 Fexofenadine HCl [Sarita Allergy] 180 mg PO DAILY PRN 03/11/17 07/19/17 Lansoprazole [Prevacid] 15 mg PO DAILY PRN 03/11/17 07/19/17 Losartan [Cozaar] 25 mg PO DAILY@1300 03/11/17 07/19/17 Spironolactone [Aldactone] 25 mg PO DAILY@1300 03/11/17 07/19/17 amLODIPine [Norvasc] 10 mg PO DAILY@1700 03/11/17 07/19/17 cloNIDine HCL [Catapres] 0.1 mg PO TID@0600,1300,2200 03/11/17 07/19/17 Ipratropium-Albuterol Nebulize 3 ml INHALATION RT-QID PRN 07/19/17 07/19/17 [Duoneb 0.5 mg-3 mg/3 ml Soln] Metoprolol Succinate (ER) [Toprol 50 mg PO HS 07/19/17 07/19/17 Xl] Metoprolol Succinate (ER) [Toprol 200 mg PO QAM 07/19/17 07/19/17 Xl] Previous Rx's Medication Instructions Recorded Apixaban [Eliquis] 5 mg PO BID tab 03/16/17 Allergies Allergy/AdvReac Type Severity Reaction Status Date / Time No Known Allergies Allergy Verified 07/19/17 19:44 Review of Systems ROS Statement: Those systems with pertinent positive or pertinent negative responses have been documented in the HPI. ROS Other: All systems not noted in ROS Statement are negative. Constitutional: Reports: fever. Denies: chills, weakness Eyes: Denies: vision change ENT: Denies: ear pain, throat pain, congestion Respiratory: Reports: dyspnea, wheezes. Denies: cough, hemoptysis Cardiovascular: Reports: chest pain, dyspnea on exertion, edema. Denies: palpitations, syncope Endocrine: Reports: fatigue Gastrointestinal: Denies: abdominal pain, nausea, vomiting, diarrhea, constipation Genitourinary: Denies: urgency, dysuria, frequency, hematuria Musculoskeletal: Denies: back pain Skin: Reports: rash, change in color Neurological: Denies: headache, weakness, numbness, paresthesias, confusion Past Medical History Past Medical History: Atrial Fibrillation, Asthma, Heart Failure, COPD, GI Bleed , Hypertension Additional Past Medical History / Comment(s): 2-1-16 admitted with c/o abd pain , clinical impression acute diverticulitis, cellulitis ll extremitis. 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 Past Psychological History: No Psychological Hx Reported Additional Psychological History / Comment(s): pt lives with daughter, gets around by using cane,denies falls and stated gets no outside sevices. Smoking Status: Former smoker Past Alcohol Use History: None Reported Additional Past Alcohol Use History / Comment(s): used to smoke 1 , quit 2013 Past Drug Use History: None Reported - Past Family History Father Family Medical History: Eye Disorder, Osteoarthritis (OA) Additional Family Medical History / Comment(s): at age 92 from old age, had macular degeneration Mother Family Medical History: Coronary Artery Disease (CAD), Diabetes Mellitus, Hypertension, Renal Disease Additional Family Medical History / Comment(s): cabg, dialysis General Exam Limitations: no limitations General appearance: alert, obese, other (Patient sitting up in bed. Does not appear in pain. Mild conversational dyspnea. Calm, pleasant.) Head exam: Present: atraumatic, normocephalic Eye exam: Present: normal appearance, PERRL, EOMI ENT exam: Present: normal external ear exam Neck exam: Present: normal inspection Respiratory exam: Present: wheezes, prolonged expiratory, other (3 L nasal cannula in place). Absent: respiratory distress, rales, rhonchi, stridor, accessory muscle use Cardiovascular Exam: Present: tachycardia, irregular rhythm GI/Abdominal exam: Present: soft, other (Morbidly obese). Absent: tenderness, guarding, rebound Neurological exam: Present: alert, oriented X3 Psychiatric exam: Present: normal affect, normal mood Skin exam: Present: other (Pitting edema over the lower extremity bilaterally. Weight Kerlix dressing is removed, patient with erythematous and yellow crusting of the bilateral lower extremities circumferentially. +four odor. + yellow/white weeping fluid) Course Vital Signs 07/19/17 07/19/17 07/19/17 19:08 19:24 20:03 Temperature 101.5 F H Pulse Rate 129 H 113 H 113 H Respiratory 18 20 Rate Blood Pressure 160/73 116/110 151/82 O2 Sat by Pulse 94 L 96 93 L Oximetry 07/19/17 07/19/17 07/19/17 20:11 20:24 21:13 Temperature 100.2 F H Pulse Rate 120 H 126 H 112 H Respiratory 20 Rate Blood Pressure 119/50 O2 Sat by Pulse 93 L Oximetry Medical Decision Making - Medical Decision Making Patient febrile and tachycardic on arrival. Sepsis protocol ordered. We'll start vancomycin for likely cellulitis of the lower extremities. We'll hold second antibiotic, unless respiratory or urinary infection identified. Will hold 30 mL per KG bolus given patient's shortness of breath and history of CHF, will give 500 mL bolus and reassessed. Patient on 5 L nasal cannula via EMS, on 3 L nasal cannula at baseline. DuoNeb treatments ordered given wheezing. Patient with likely sepsis secondary to cellulitis, possible COPD versus CHF exacerbation. Potassium 6.4, calcium gluconate, insulin, amp of D50, Kayexalate given. Vision chest pain-free at this time Chest x-ray shows no acute process. Patient tolerated 500 L bolus well, we'll give another 1 L bolus, start maintenance fluids. Although patient has history of CHF, BUN elevated, creatinine 1. Patient may be dehydrated. We'll continue with hydration given sepsis. Patient with elevated white blood cell count along with tachycardia and fever. Blood cultures are pending. Patient has received dose of vancomycin, will discuss antibiotics with admitting physician. Urine does show urinary tract infection. Temperature improved at this time. Lactic acid 2.4, will continue to trend. Spoke with Dr. Allred, due to patient condition and results, he requests Kayexalate, Zosyn added to vancomycin regimen, request infectious disease consult to Dr. Shepherd. He agrees with telemetry at this time. We'll continue IV hydration and antibiotic therapy is, admitted to telemetry at this time. Patient daughter updated with all results and plan. - Lab Data Result diagrams: 07/19/17 20:25 07/19/17 20:25 Lab Results 07/19/17 07/19/17 07/19/17 Range/Units 20:25 20:25 20:25 WBC 22.6 H (3.8-10.6) k/uL RBC 5.17 (3.80-5.40) m/uL Hgb 15.0 (11.4-16.0) gm/dL Hct 50.5 H (34.0-46.0) % MCV 97.7 (80.0-100.0) fL MCH 29.1 (25.0-35.0) pg MCHC 29.7 L (31.0-37.0) g/dL RDW 14.2 (11.5-15.5) % Plt Count 170 (150-450) k/uL Neutrophils % 92 % Lymphocytes % 3 % Monocytes % 3 % Eosinophils % 0 % Basophils % 0 % Neutrophils # 20.8 H (1.3-7.7) k/uL Lymphocytes # 0.8 L (1.0-4.8) k/uL Monocytes # 0.8 (0-1.0) k/uL Eosinophils # 0.0 (0-0.7) k/uL Basophils # 0.0 (0-0.2) k/uL Hypochromasia Marked PT 11.5 (9.0-12.0) sec INR 1.2 H (<1.2) APTT 22.3 (22.0-30.0) sec Sodium (137-145) mmol/L Potassium (3.5-5.1) mmol/L Chloride (98-107) mmol/L Carbon Dioxide (22-30) mmol/L Anion Gap mmol/L BUN (7-17) mg/dL Creatinine (0.52-1.04) mg/dL Est GFR (MDRD) Af Amer (>60 ml/min/1.73 sqM) Est GFR (MDRD) Non-Af (>60 ml/min/1.73 sqM) Glucose (74-99) mg/dL Plasma Lactic Acid Glenn 2.6 H* (0.7-2.0) mmol/L Calcium (8.4-10.2) mg/dL Troponin I (0.000-0.034) ng/mL Urine Color Urine Appearance (Clear) Urine pH (5.0-8.0) Ur Specific Clemons (1.001-1.035) Urine Protein (Negative) Urine Glucose (UA) (Negative) Urine Ketones (Negative) Urine Blood (Negative) Urine Nitrite (Negative) Urine Bilirubin (Negative) Urine Urobilinogen (<2.0) mg/dL Ur Leukocyte Esterase (Negative) Urine RBC (0-5) /hpf Urine WBC (0-5) /hpf Ur Squamous Epith Cells (0-4) /hpf Urine Bacteria (None) /hpf Urine Mucus (None) /hpf 07/19/17 07/19/17 07/19/17 Range/Units 20:25 20:25 21:15 WBC (3.8-10.6) k/uL RBC (3.80-5.40) m/uL Hgb (11.4-16.0) gm/dL Hct (34.0-46.0) % MCV (80.0-100.0) fL MCH (25.0-35.0) pg MCHC (31.0-37.0) g/dL RDW (11.5-15.5) % Plt Count (150-450) k/uL Neutrophils % % Lymphocytes % % Monocytes % % Eosinophils % % Basophils % % Neutrophils # (1.3-7.7) k/uL Lymphocytes # (1.0-4.8) k/uL Monocytes # (0-1.0) k/uL Eosinophils # (0-0.7) k/uL Basophils # (0-0.2) k/uL Hypochromasia PT (9.0-12.0) sec INR (<1.2) APTT (22.0-30.0) sec Sodium 136 L (137-145) mmol/L Potassium 6.4 H* (3.5-5.1) mmol/L Chloride 103 (98-107) mmol/L Carbon Dioxide 23 (22-30) mmol/L Anion Gap 10 mmol/L BUN 31 H (7-17) mg/dL Creatinine 1.00 (0.52-1.04) mg/dL Est GFR (MDRD) Af Amer >60 (>60 ml/min/1.73 sqM) Est GFR (MDRD) Non-Af 55 (>60 ml/min/1.73 sqM) Glucose 99 (74-99) mg/dL Plasma Lactic Acid Glenn (0.7-2.0) mmol/L Calcium 10.2 (8.4-10.2) mg/dL Troponin I <0.012 (0.000-0.034) ng/mL Urine Color Yellow Urine Appearance Cloudy H (Clear) Urine pH 5.0 (5.0-8.0) Ur Specific Clemons 1.017 (1.001-1.035) Urine Protein Trace H (Negative) Urine Glucose (UA) Negative (Negative) Urine Ketones Trace H (Negative) Urine Blood Negative (Negative) Urine Nitrite Positive H (Negative) Urine Bilirubin Negative (Negative) Urine Urobilinogen <2.0 (<2.0) mg/dL Ur Leukocyte Esterase Moderate H (Negative) Urine RBC 1 (0-5) /hpf Urine WBC 12 H (0-5) /hpf Ur Squamous Epith Cells 2 (0-4) /hpf Urine Bacteria Many H (None) /hpf Urine Mucus Rare H (None) /hpf Disposition Clinical Impression: Sepsis, Complicated UTI (urinary tract infection), Bilateral lower leg cellulitis, Hyperkalemia Disposition: ADMITTED IP TO THIS HOSP Referrals: Catina Agee MD [Primary Care Provider] - 1-2 days - Out of Hospital Transfer - Req. Specs Out of Hospital Transfer - Requested Specifics: Telemetry Unit
[2017-07-19] MEDS ORDERED: VANCOMYCIN 2,500 MG in SODIUM CHLORIDE 0.9% 500 ML IVPB STA (19:19)
--- NOTE | 2017-07-19 19:58 | XR ---
EXAMINATION TYPE: XR chest 1V portable DATE OF EXAM: 07/19/2017 COMPARISON: 03/14/2017 HISTORY: Bilateral lower extremity edema TECHNIQUE: Single frontal view of the chest is obtained. FINDINGS: There is redemonstrated marked enlargement of the cardiac silhouette. Also redemonstrated are very prominent overlying soft tissues which limited visualization of the intr athoracic structures. There is no definite pulmonary edema. No definite pulmonary consolidation. There is no pneumothorax. No definite pleural effusion. The remainder the mediastinum, the bones, and the soft tissues are unremarkable. IMPRESSION: NO DEFINITE ACUTE PROCESS.
[2017-07-19 20:43] LABS: Basophils % (A) 0 %; CH 28.1; CHCM 28.9; Eosinophils % (A) 0 %; HCT 50.5 % (34.0-46.0); HDW 2.55; Hypochromasia Marked; Luc # (Auto) 0.18; Luc % (Auto) 1; Lymphocytes # (A) 0.8 k/uL (1.0-4.8); Lymphocytes % (A) 3 %; MCH 29.1 pg (25.0-35.0); MCHC 29.7 g/dL (31.0-37.0); MCV 97.7 fL (80.0-100.0); Mean Platelet Volume 8.6; Monocytes # (A) 0.8 k/uL (0-1.0); Monocytes % (A) 3 %; Neutrophils # (A) 20.8 k/uL (1.3-7.7); Neutrophils % (A) 92 %; RBC 5.17 m/uL (3.80-5.40); RDW 14.2 % (11.5-15.5); WBC 22.6 k/uL (3.8-10.6); WBC (Perox) 23.47
[2017-07-19 20:47] LABS: INR 1.2 (<1.2); Partial Thromboplastin Time 22.3 sec (22.0-30.0); Prothrombin Time 11.5 sec (9.0-12.0)
[2017-07-19 21:25] LABS: Anion Gap 10 mmol/L; Blood Urea Nitrogen 31 mg/dL (7-17); Calcium 10.2 mg/dL (8.4-10.2); Carbon Dioxide 23 mmol/L (22-30); Chloride 103 mmol/L (98-107); Glucose 99 mg/dL (74-99); Non-African American GFR(MDRD) 55 (>60 ml/min/1.73 sqM); Sodium 136 mmol/L (137-145)
[2017-07-19 21:29] LABS: Potassium 6.4 mmol/L (3.5-5.1)
[2017-07-19 21:37] LABS: Appearance,Urine Cloudy (Clear); Bacteria,Urine Many /hpf; Bilirubin,Urine Negative (Negative); Glucose,Urine (UA) Negative (Negative); Ketones,Urine Trace (Negative); Leukocyte Esterase,Urine Moderate (Negative); Mucus,Urine Rare /hpf; Nitrite,Urine Positive (Negative); Particle Count 8829; Protein,Urine Trace (Negative); RBC,Urine 1 /hpf (0-5); Specific Gravity,Urine 1.017 (1.001-1.035); Squamous Epithelial Cell,Urine 2 /hpf (0-4); UA Billing (MACRO vs. MICRO) MICRO; Urobilinogen,Urine <2.0 mg/dL (<2.0); WBC,Urine 12 /hpf (0-5)
[2017-07-19] MEDS ORDERED: SODIUM CHLORIDE 0.9% 1,000 ML IV STA (21:37)
[2017-07-19] MEDS ORDERED: DEXTROSE 50%-WATER 50 ML SYRINGE IVP STA (21:39)
[2017-07-19] MEDS ORDERED: INSULIN REGULAR 100 UNIT/ML VIAL IV ONE (21:39)
[2017-07-19] MEDS ORDERED: CALCIUM GLUCONATE 1,000 MG in SODIUM CHLORIDE 0.9% 100 ML IVPB ONE (21:39)
[2017-07-19] MEDS ORDERED: PIPERACILLIN-TAZOBACTAM 3.375 GM in DEXTROSE/WATER 1 50ML.BAG IVPB STA (22:03)
[2017-07-19] MEDS ORDERED: SODIUM POLYSTYRENE SULFONATE 15 GM/60 ML BOTTLE PO ONE (22:04)
[2017-07-19] MEDS: SODIUM CHLORIDE 0.9% 1,000 ML IV SCH (22:45)
[2017-07-19] MEDS ORDERED: LORATADINE 10 MG TAB PO PRN (23:49)
[2017-07-19] MEDS ORDERED: ACETAMINOPHEN TAB 500 MG TAB PO PRN (23:49)
[2017-07-19] MEDS ORDERED: amLODIPine 10 MG TAB PO SCH (23:52)
[2017-07-20] MEDS: METOPROLOL SUCCINATE (ER) 50 MG TAB.ER.24H PO SCH ×2 (00:34→21:03)
[2017-07-20] MEDS: MONTELUKAST 10 MG TAB PO SCH ×2 (00:34→16:36)
[2017-07-20] MEDS: APIXABAN 5 MG TAB PO SCH ×3 (00:34→21:03)
[2017-07-20] MEDS: cloNIDine HCL 0.1 MG TAB PO SCH ×4 (00:35→23:57)
[2017-07-20] MEDS: ACETAMINOPHEN TAB 325 MG TAB PO PRN (05:42)
[2017-07-20] MEDS ORDERED: ASPIRIN 81 MG PO SCH (06:00)
[2017-07-20 06:24] LABS: Basophils % (A) 0 %; CH 27.9; CHCM 29.3; Eosinophils % (A) 0 %; HCT 44.9 % (34.0-46.0); HDW 2.58; HGB 13.6 gm/dL (11.4-16.0); Hypochromasia Marked; Luc % (Auto) 1; Lymphocytes # (A) 0.8 k/uL (1.0-4.8); Lymphocytes % (A) 5 %; MCHC 30.3 g/dL (31.0-37.0); MCV 95.8 fL (80.0-100.0); Mean Platelet Volume 8.6; Monocytes # (A) 0.7 k/uL (0-1.0); Monocytes % (A) 4 %; Neutrophils # (A) 14.7 k/uL (1.3-7.7); Neutrophils % (A) 89 %; RBC 4.69 m/uL (3.80-5.40); RDW 14.5 % (11.5-15.5); WBC 16.4 k/uL (3.8-10.6); WBC (Perox) 17.66
[2017-07-20] MEDS: FUROSEMIDE 40 MG TAB PO SCH (06:51)
[2017-07-20] MEDS: VANCOMYCIN 2,500 MG in SODIUM CHLORIDE 0.9% 500 ML IVPB SCH (07:08)
[2017-07-20 07:59] LABS: Calcium 9.4 mg/dL (8.4-10.2); Magnesium 1.6 mg/dL (1.6-2.3); Potassium 5.2 mmol/L (3.5-5.1)
[2017-07-20] MEDS: SYMBICORT 80-4.5 MCG INHALER INHALATION SCH ×2 (08:47→21:23)
[2017-07-20] MEDS: MULTIVITAMINS, THERA 1 EACH TAB PO SCH (08:54)
[2017-07-20] MEDS: METOPROLOL SUCCINATE (ER) 100 MG TAB.ER.24H PO SCH (08:55)
[2017-07-20] MEDS: cefTRIAXone 2,000 MG in SODIUM CHLORIDE 0.9% 100 ML IVPB SCH (08:56)
[2017-07-20] MEDS: SODIUM CHLORIDE 0.9% 1,000 ML IV SCH ×2 (09:09→16:36)
[2017-07-20] MEDS ORDERED: SPIRONOLACTONE 25 MG TAB PO SCH (13:00)
[2017-07-20] MEDS ORDERED: LOSARTAN 25 MG TAB PO SCH (13:00)
--- NOTE | 2017-07-20 15:59 | P.HPIM ---
History of Present Illness patient is morbidly obese female came in because of significant bilateral lower x-ray swelling redness and skin breakdown with multiple ulcerations on the bilateral lower limbs patient is admitted for sepsis secondary to cellulitis patient was started on Zosyn and vancomycin was a valid by infectious disease. Patient has significant past medical history of COPD CHF asthma atrial fibrillationon anticoagulation with eliquis.patient is significantly hypoxic requiring about 14 L on admission now about 5 L although chest x-ray did not show any significant pulmonary edema or pneumonia patient is morbidly obese is a is wheezing significantly considering his her overall medical problems I will not start her on systemic steroids it I'll start her on inhalational steroids if there is no improvement patient need to be started on systemic steroids for either asthma or COPD exacerbation. Patient remains tachycardic with atrial fibrillation with rapid ventricular rate for which I'm consulted cardiology IV fluids will be discontinued. Patient tachycardia may be a reactive to as patient was not started on beta donna and clonidine after admission. Patient was started back on his medications patient other medical issues include significant hyper kalemia losartan and spironolactone are being discontinued.she does have some kidney dysfunction baseline creatinine around 1 and it's around 1.2 now. Patient had previous echocardiogram showed ejection fraction of 60-65% patient may have congestive heart failure chronic systolic dysfunction. Review of Systems REVIEW OF SYSTEMS: CONSTITUTIONAL: as described in HPI HEENT: No recent visual problems or hearing problems. Denied any sore throat. CARDIOVASCULAR: No chest pain, orthopnea, PND, no palpitations, no syncope. PULMONARY: as described in HPI GASTROINTESTINAL: No diarrhea, no nausea, no vomiting, no abdominal pain. Normoactive bowel sounds. NEUROLOGICAL: No headaches, no weakness, no numbness. HEMATOLOGICAL: Denies any bleeding or petechiae. GENITOURINARY: Denies any burning micturition, frequency, or urgency. MUSCULOSKELETAL/RHEUMATOLOGICAL: Denies any joint pain, swelling, or any muscle pain. ENDOCRINE: Denies any polyuria or polydipsia. The rest of the 14-point review of systems is negative. Past Medical History Past Medical History: Atrial Fibrillation, Asthma, Heart Failure, COPD, GI Bleed , Hypertension Additional Past Medical History / Comment(s): 2 admitted with c/o abd pain , clinical impression acute diverticulitis, cellulitis ll extremitis. 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 Past Psychological History: No Psychological Hx Reported Additional Psychological History / Comment(s): pt lives with daughter, gets around by using cane,denies falls and stated gets no outside sevices. Smoking Status: Former smoker Past Alcohol Use History: None Reported Additional Past Alcohol Use History / Comment(s): used to smoke 1 , quit 2013 Past Drug Use History: None Reported - Past Family History Father Family Medical History: Eye Disorder, Osteoarthritis (OA) Additional Family Medical History / Comment(s): at age 92 from old age, had macular degeneration Mother Family Medical History: Coronary Artery Disease (CAD), Diabetes Mellitus, Hypertension, Renal Disease Additional Family Medical History / Comment(s): cabg, dialysis Medications and Allergies Home Medications Medication Instructions Recorded Confirmed Type Aspirin [Adult Low Dose Aspirin EC] 81 mg PO DAILY@0600 11/18/15 07/19/17 History Fluticasone/Salmeterol [Advair 1 puff INHALATION RT-BID 11/18/15 07/19/17 History 250-50 Diskus] Furosemide 40 mg PO DAILY@0600 11/18/15 07/19/17 History Montelukast [Singulair] 10 mg PO DAILY@1700 11/18/15 07/19/17 History Multivitamins, Thera [Multivitamin 1 tab PO DAILY 11/18/15 07/19/17 History (formulary)] Acetaminophen Tab [Tylenol Tab] 1,500 mg PO BID 03/11/17 07/19/17 History Fexofenadine HCl [Sarita Allergy] 180 mg PO DAILY PRN 03/11/17 07/19/17 History Lansoprazole [Prevacid] 15 mg PO DAILY PRN 03/11/17 07/19/17 History Losartan [Cozaar] 25 mg PO DAILY@1300 03/11/17 07/19/17 History Spironolactone [Aldactone] 25 mg PO DAILY@1300 03/11/17 07/19/17 History amLODIPine [Norvasc] 10 mg PO DAILY@1700 03/11/17 07/19/17 History cloNIDine HCL [Catapres] 0.1 mg PO TID@0600,1300,2200 03/11/17 07/19/17 History Apixaban [Eliquis] 5 mg PO BID tab 03/16/17 07/19/17 Rx Ipratropium-Albuterol Nebulize 3 ml INHALATION RT-QID PRN 07/19/17 07/19/17 History [Duoneb 0.5 mg-3 mg/3 ml Soln] Metoprolol Succinate (ER) [Toprol 50 mg PO HS 07/19/17 07/19/17 History Xl] Metoprolol Succinate (ER) [Toprol 200 mg PO QAM 07/19/17 07/19/17 History Xl] Allergies Allergy/AdvReac Type Severity Reaction Status Date / Time No Known Allergies Allergy Verified 07/19/17 19:44 Physical Exam Vitals: Vital Signs Temp Pulse Pulse Resp BP BP Pulse Ox 07/20/17 11:47 97.9 F 114 H 20 125/76 91 L 07/20/17 08:00 98.3 F 110 H 20 118/70 91 L 07/20/17 04:00 98.8 F 103 H 22 116/71 93 L 07/20/17 00:00 99.8 F H 107 H 24 116/56 90 L 07/19/17 22:45 105 H 20 117/57 97 07/19/17 22:37 98.6 F 104 H 23 116/56 94 L 07/19/17 22:05 97 22 111/59 94 L 07/19/17 21:13 100.2 F H 112 H 20 119/50 93 L 07/19/17 20:24 126 H 07/19/17 20:11 120 H 07/19/17 20:03 113 H 151/82 93 L 07/19/17 19:24 113 H 20 116/110 96 07/19/17 19:08 101.5 F H 129 H 18 160/73 94 L Intake and Output 07/20/17 07/20/17 07/20/17 06:59 14:59 22:59 Intake Total 850 Output Total 600 Balance 250 Intake: Intake, IV Titration 650 Amount Piperacillin-Tazobactam 3 50 .375 gm In Dextrose/Water 1 50ml.bag @ 12.5 mls/hr IVPB ONCE STA Rx#: [id number] Sodium Chloride 0.9% 1, 100 000 ml @ 100 mls/hr IV . Q10H BARBER Rx#:[id number] Vancomycin 2,500 mg In 500 Sodium Chloride 0.9% 500 ml @ 167 mls/hr IVPB Q24H BARBER Rx#:[id number] Oral 200 Output: Urine 600 Other: Voiding Method Bedpan Bedpan # Voids 1 Weight 182 kg Results CBC & Chem 7: 07/20/17 05:55 07/20/17 05:55 Labs: Abnormal Lab Results - Last 24 Hours (Table) 07/19/17 07/19/17 07/19/17 Range/Units 20:25 20:25 20:25 WBC 22.6 H (3.8-10.6) k/uL Hct 50.5 H (34.0-46.0) % MCHC 29.7 L (31.0-37.0) g/dL Neutrophils # 20.8 H (1.3-7.7) k/uL Lymphocytes # 0.8 L (1.0-4.8) k/uL INR 1.2 H (<1.2) Sodium (137-145) mmol/L Potassium (3.5-5.1) mmol/L BUN (7-17) mg/dL Creatinine (0.52-1.04) mg/dL Plasma Lactic Acid Glenn 2.6 H* (0.7-2.0) mmol/L Urine Appearance (Clear) Urine Protein (Negative) Urine Ketones (Negative) Urine Nitrite (Negative) Ur Leukocyte Esterase (Negative) Urine WBC (0-5) /hpf Urine Bacteria (None) /hpf Urine Mucus (None) /hpf 07/19/17 07/19/17 07/20/17 Range/Units 20:25 21:15 05:55 WBC 16.4 H (3.8-10.6) k/uL Hct (34.0-46.0) % MCHC 30.3 L (31.0-37.0) g/dL Neutrophils # 14.7 H (1.3-7.7) k/uL Lymphocytes # 0.8 L (1.0-4.8) k/uL INR (<1.2) Sodium 136 L (137-145) mmol/L Potassium 6.4 H* (3.5-5.1) mmol/L BUN 31 H (7-17) mg/dL Creatinine (0.52-1.04) mg/dL Plasma Lactic Acid Glenn (0.7-2.0) mmol/L Urine Appearance Cloudy H (Clear) Urine Protein Trace H (Negative) Urine Ketones Trace H (Negative) Urine Nitrite Positive H (Negative) Ur Leukocyte Esterase Moderate H (Negative) Urine WBC 12 H (0-5) /hpf Urine Bacteria Many H (None) /hpf Urine Mucus Rare H (None) /hpf 07/20/17 Range/Units 05:55 WBC (3.8-10.6) k/uL Hct (34.0-46.0) % MCHC (31.0-37.0) g/dL Neutrophils # (1.3-7.7) k/uL Lymphocytes # (1.0-4.8) k/uL INR (<1.2) Sodium (137-145) mmol/L Potassium 5.2 H (3.5-5.1) mmol/L BUN 32 H (7-17) mg/dL Creatinine 1.19 H (0.52-1.04) mg/dL Plasma Lactic Acid Glenn (0.7-2.0) mmol/L Urine Appearance (Clear) Urine Protein (Negative) Urine Ketones (Negative) Urine Nitrite (Negative) Ur Leukocyte Esterase (Negative) Urine WBC (0-5) /hpf Urine Bacteria (None) /hpf Urine Mucus (None) /hpf Microbiology - Last 24 Hours (Table) 07/19/17 21:15 Urine Culture - Preliminary Urine,Voided Thrombosis Risk Factor Assmnt - Choose All That Apply Other Risk Factors: Yes Each Risk Factor Represents 2 Points: Age 61-74 years Thrombosis Risk Factor Assessment Total Risk Factor Score: 2 Thrombosis Risk Factor Assessment Level: Low Risk Assessment and Plan Plan: #1 severe sepsis: Secondary to bilateral lower limb cellulitis patient is on vancomycin as well as Zosyn and infectious disease evaluated the patient patient has significant swelling of bilateral lower limbs chronic lymphedema and the has cellulitis probably is bilateral with significant redness local is of temperature patient will need good local wound care as an outpatient and will require support from infectious disease. #2 hypokalemia: Secondary to spironolactone and losartan which will be discontinued. #3 acute renal failure probably due to intravascular depletion patient although does have significant swelling in bilateral lower limbs although I do not believe patient is an cc CHF exacerbation will not start her on a IV Lasix and IV fluids patient will continued on oral Lasix. #4 atrial fibrillation with rapid ventricular rate, patient will be restarted back on her beta donna and clonidine . And patient will continue with her anticoagulation. #5asthma or COPD exacerbation: Patient was started on inhalational steroids and if there is no improvement in her hypoxemia patient was started on systemic steroids. #6 acute on chronic hypoxic respiratory failure call: Secondary to COPD exacerbation along with the sepsis #7 moderate obesity, with probability of obesity hypoventilation syndrome. #8 CHF probably chronic diastolic dysfunction at not believe patient in acute exacerbation at this point of time
--- NOTE | 2017-07-20 20:27 | CONS ---
CONSULTATION Mrs. Robertson is a 67-year-old female with morbid obesity, chronic atrial fibrillation, chronic leg edema, who presented with worsening edema over the last months with drainage and weeping. The patient has been followed by Dr. Child on a regular basis, she has a chronic atrial fibrillation, has been anticoagulated. She is quite limited in her physical activity and has chronic dyspnea on exertion. She has a known history of chronic obstructive lung disease and has been followed by Dr. Bartlett. She has occasional episodes of chest discomfort at times with activity. She has no history of syncope. Her coronary risk factors are remarkable for prior history of smoking, which she stopped in 2013. She has a history of hypertension. She is nondiabetic. Her lipid profile is not available to me. MEDICATION: His medications at home: 1. Clonidine 0.1 mg 3 times a day. 2. Norvasc 10 mg daily. 3. Aldactone 25 mg daily. 4. Metoprolol succinate 250 mg daily. 5. Losartan 25 mg daily. 6. Furosemide 40 mg daily. 7. Aspirin. 8. Eliquis 5 mg twice a day. REVIEW OF SYSTEMS: Respiratory system: She has dyspnea on exertion. She has history of chronic obstructive lung disease. GI system: No recent GI bleed. No peptic ulcer disease. system: No dysuria or hematuria. Nervous system: No history of stroke or seizure. PHYSICAL EXAMINATION: She is a 67-year-old female, alert, oriented, in no apparent distress. Morbidly obese. Blood pressure 125/70 with a heart rate in the one teens. HEAD: Normocephalic. Eyes sclerae anicteric. Neck unable to evaluate jugular venous pressure. LUNGS: With decreased air exchange at the bases. No wheezes. Heart irregularly irregular S1, S2. No S3. No rub. ABDOMEN: Soft, obese, nontender, extremities with erythema bilaterally and drainage with significant edema and chronic skin changes as well. LAB DATA: Lab data revealed BUN and creatinine 32 and 1.19, potassium 5.2. On presentation, her potassium was 6.4, troponin less than 0.012. NT-proBNP of 4500. White blood cell 22.6 on presentation, hemoglobin of 15. Her plasma lactic acid was 2.6. Her EKG revealed atrial fibrillation with a rapid ventricular response and nonspecific ST-T wave changes. Her chest x-ray shows no acute infiltrate. IMPRESSION: 1. Severe cellulitis of bilateral lower extremities. 2. Chronic atrial fibrillation. 3. Renal failure. 4. Hyperkalemia, improved, could be related to the Aldactone that the patient was on before. 5. Morbid obesity. 6. History of hypertension. 7. Chronic obstructive lung disease. RECOMMENDATION: From the cardiac standpoint, we will continue to hold the Aldactone at this time. I will stop the aspirin since she is on the Eliquis. We will continue on the present dose of metoprolol succinate and if her heart rate remains elevated, then we can add to her regimen Cardizem and hold the Norvasc. She had an echocardiogram done recently that showed a preserved left ventricular size and systolic function. Thank you for this consult. We will follow with you. TRISHA / PAMELA: [id number] /
--- NOTE | 2017-07-20 22:35 | P.CONS ---
History of Present Illness - Reason for Consult Consult date: 07/20/17 - Chief Complaint Lower extremity swelling - History of Present Illness 67-year-old female with history of congestive heart failure as well as obesity presents to the emergency center with increasing lower extremity edema and increasing shortness of breath. Upon presentation there was evidence of hypoxia requiring oxygen supplementation. She's been treated with respiratory treatments and has had some improvement of her shortness of breath. She over has the chronic lower extremity edema with the extensive erythema this year is concerned about. She relates that she was feeling quite poorly at home which prompted her to present to the emergency center. She denying severe cough or sputum production. She denies hemoptysis. She's having no chest pain at this time. She denies nausea or emesis and no brenden abdominal pain. No trauma to the lower extremities. It is noted there may have been some difficulty with her medications at home. Review of Systems HEENT:Denies headache or acute visual change. Denies sinus or mouth discomforts. Denies neck stiffness or pain. Denies significant oral cavity pain. Denies difficulty on swallowing. Lungs: Is complaining of shortness of breath no significant productive cough, no sputum production, no hemoptysis Cardiovascular: Denies chest pain, chest wall pain, Or syncope, but complains of orthopnea and dyspnea on exertion Gastrointestinal: Did have evidence of some nausea without evidence emesis. She had some loose stool and had abdominal pain. No hematemesis melena or hematochezia. Musculoskeletal: denies significant myalgias or arthralgias. No new joint swelling. Denies new back pain. Skin: As per the HPI Neuro: Denies headache or visual change. Denies any new onset weakness or difficulty with ambulation. Denies falls or seizures. Psychiatric:Denies anxiety or depression. Endocrine: Complains of ongoing fatigue, denies significant weight loss or weight gain. Since her last hospital stay Past Medical History Past Medical History: Atrial Fibrillation, Asthma, Heart Failure, COPD, GI Bleed , Hypertension Additional Past Medical History / Comment(s): 2-16 admitted with c/o abd pain , clinical impression acute diverticulitis, cellulitis ll extremitis. 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 Past Psychological History: No Psychological Hx Reported Additional Psychological History / Comment(s): pt lives with daughter, gets around by using cane,denies falls and stated gets no outside sevices. Stopped smoking in 2013. No alcohol use. Disabled. No experience. No international travel. No animal exposures Smoking Status: Former smoker Past Alcohol Use History: None Reported Additional Past Alcohol Use History / Comment(s): used to smoke 1 , quit 2013 Past Drug Use History: None Reported - Past Family History Father Family Medical History: Eye Disorder, Osteoarthritis (OA) Additional Family Medical History / Comment(s): at age 92 from old age, had macular degeneration Mother Family Medical History: Coronary Artery Disease (CAD), Diabetes Mellitus, Hypertension, Renal Disease Additional Family Medical History / Comment(s): cabg, dialysis Medications and Allergies Home Medications and Allergies Comment(s): Current Medications Acetaminophen (Tylenol Tab) 650 mg PO Q6HR PRN PRN Reason: Mild Pain or Fever > 100.5 Last Admin: 07/20/17 05:42 Dose: 650 mg Apixaban (Eliquis) 5 mg PO BID PENDING SALE TO [facility] Last Admin: 07/20/17 21:03 Dose: 5 mg Budesonide/Formoterol Fumarate (Symbicort 80-4.5 Mcg Inhaler) 2 puff INHALATION RT-BID PENDING SALE TO [facility] Last Admin: 07/20/17 21:23 Dose: 2 puff Clonidine (Catapres) 0.1 mg PO TID@0600,1300,2200 PENDING SALE TO [facility] Last Admin: 07/20/17 13:03 Dose: 0.1 mg Furosemide (Lasix) 40 mg PO DAILY@0600 PENDING SALE TO [facility] Last Admin: 07/20/17 06:51 Dose: 40 mg Vancomycin HCl 2,500 mg/ (Sodium Chloride) 500 mls @ 167 mls/hr IVPB Q24H PENDING SALE TO [facility] Last Admin: 07/20/17 07:08 Dose: 167 mls/hr Sodium Chloride (Saline 0.9%) 1,000 mls @ 100 mls/hr IV .Q10H PENDING SALE TO [facility] Last Admin: 07/20/17 16:36 Dose: 100 mls/hr Ceftriaxone Sodium 2,000 mg/ (Sodium Chloride) 100 mls @ 100 mls/hr IVPB Q24HR PENDING SALE TO [facility] Last Admin: 07/20/17 08:56 Dose: 100 mls/hr Loratadine (Claritin) 10 mg PO DAILY PRN PRN Reason: Allergy Symptoms Metoprolol Succinate (Toprol Xl) 50 mg PO HS PENDING SALE TO [facility] Last Admin: 07/20/17 21:03 Dose: 50 mg Metoprolol Succinate (Toprol Xl) 200 mg PO QAM PENDING SALE TO [facility] Last Admin: 07/20/17 08:55 Dose: 200 mg Montelukast Sodium (Singulair) 10 mg PO DAILY@1700 PENDING SALE TO [facility] Last Admin: 07/20/17 16:36 Dose: 10 mg Multivitamins (Theragran) 1 each PO DAILY PENDING SALE TO [facility] Last Admin: 07/20/17 08:54 Dose: 1 each Home Medications Medication Instructions Recorded Confirmed Type Aspirin [Adult Low Dose Aspirin EC] 81 mg PO DAILY@0600 11/18/15 07/19/17 History Fluticasone/Salmeterol [Advair 1 puff INHALATION RT-BID 11/18/15 07/19/17 History 250-50 Diskus] Furosemide 40 mg PO DAILY@0600 11/18/15 07/19/17 History Montelukast [Singulair] 10 mg PO DAILY@1700 11/18/15 07/19/17 History Multivitamins, Thera [Multivitamin 1 tab PO DAILY 11/18/15 07/19/17 History (formulary)] Acetaminophen Tab [Tylenol Tab] 1,500 mg PO BID 03/11/17 07/19/17 History Fexofenadine HCl [Sarita Allergy] 180 mg PO DAILY PRN 03/11/17 07/19/17 History Lansoprazole [Prevacid] 15 mg PO DAILY PRN 03/11/17 07/19/17 History Losartan [Cozaar] 25 mg PO DAILY@1300 03/11/17 07/19/17 History Spironolactone [Aldactone] 25 mg PO DAILY@1300 03/11/17 07/19/17 History amLODIPine [Norvasc] 10 mg PO DAILY@1700 03/11/17 07/19/17 History cloNIDine HCL [Catapres] 0.1 mg PO TID@0600,1300,2200 05/25/17 10/02/17 History Apixaban [Eliquis] 5 mg PO BID tab 03/16/17 07/19/17 Rx Ipratropium-Albuterol Nebulize 3 ml INHALATION RT-QID PRN 07/19/17 07/19/17 History [Duoneb 0.5 mg-3 mg/3 ml Soln] Metoprolol Succinate (ER) [Toprol 50 mg PO HS 07/19/17 07/19/17 History Xl] Metoprolol Succinate (ER) [Toprol 200 mg PO QAM 07/19/17 07/19/17 History Xl] Allergies Allergy/AdvReac Type Severity Reaction Status Date / Time No Known Allergies Allergy Verified 07/19/17 19:44 Physical Exam Vitals: Vital Signs Temp Pulse Pulse Resp BP BP Pulse Ox 07/20/17 21:37 91 L 07/20/17 20:00 97.9 F 112 H 22 100/57 89 L 07/20/17 16:00 98.4 F 108 H 20 105/80 91 L 07/20/17 11:47 97.9 F 114 H 20 125/76 91 L 07/20/17 08:00 98.3 F 110 H 20 118/70 91 L 07/20/17 04:00 98.8 F 103 H 22 116/71 93 L 07/20/17 00:00 99.8 F H 107 H 24 116/56 90 L 07/19/17 22:45 105 H 20 117/57 97 07/19/17 22:37 98.6 F 104 H 23 116/56 94 L 07/19/17 22:05 97 22 111/59 94 L Intake and Output 07/20/17 07/20/17 07/20/17 06:59 14:59 22:59 Intake Total 850 75 Output Total 600 Balance 250 75 Intake: Intake, IV Titration 650 75 Amount Piperacillin-Tazobactam 3 50 .375 gm In Dextrose/Water 1 50ml.bag @ 12.5 mls/hr IVPB ONCE STA Rx#: [id number] Sodium Chloride 0.9% 1, 100 75 000 ml @ 100 mls/hr IV . Q10H PENDING SALE TO [facility] Rx#:[id number] Vancomycin 2,500 mg In 500 Sodium Chloride 0.9% 500 ml @ 167 mls/hr IVPB Q24H PENDING SALE TO [facility] Rx#:[id number] Oral 200 Output: Urine 600 Other: Voiding Method Bedpan Bedpan Bedpan # Voids 1 Weight 182 kg 65-year-old female who suffers from obesity who seems to be comfortable at this point in time. HEENT: Anicteric conjunctiva are pink and moist nasal mucosa grossly intact without significant lesions, there is no thrush. Upper Neck: The neck is supple without significant lymphadenopathy or thyromegaly. Lungs: Evidence of symmetrical air entry. There is evidence of. X-ray wheezes are scattered. No brenden bronchial sounds are heard. No dullness is noted. Heart: Irregular with audible S1 and S2 no S3 soft S4 no distinct murmur click or rub. PMI is in his fever thrill Abdomen: Obese, Positive bowel sounds soft with minimal tenderness. There is evidence of no palpable organomegaly. She is minimal epigastric discomfort. No palpable hepatosplenomegaly. Extremities: The upper extremities without acute difficulties IV site is intact. The bilateral lower extremities reveal evidence of the chronic extensive edema. There is significant dry skin that is crusty and scaly. Some small areas that had some serous drainage. The rest of the skin is without open lesions Neuro awake and alert without new acute gross focal sensory motor deficits Results CBC & Chem 7: 07/20/17 05:55 07/20/17 05:55 Labs: Abnormal Lab Results - Last 24 Hours (Table) 07/20/17 07/20/17 Range/Units 05:55 05:55 WBC 16.4 H (3.8-10.6) k/uL MCHC 30.3 L (31.0-37.0) g/dL Neutrophils # 14.7 H (1.3-7.7) k/uL Lymphocytes # 0.8 L (1.0-4.8) k/uL Potassium 5.2 H (3.5-5.1) mmol/L BUN 32 H (7-17) mg/dL Creatinine 1.19 H (0.52-1.04) mg/dL Microbiology - Last 24 Hours (Table) 07/19/17 21:15 Urine Culture - Preliminary Urine,Voided Laboratory Results WBC 16.4 k/uL (3.8-10.6) H 07/20/17 05:55 RBC 4.69 m/uL (3.80-5.40) 07/20/17 05:55 Hgb 13.6 gm/dL (11.4-16.0) 07/20/17 05:55 Hct 44.9 % (34.0-46.0) 07/20/17 05:55 MCV 95.8 fL (80.0-100.0) 07/20/17 05:55 MCH 29.0 pg (25.0-35.0) 07/20/17 05:55 MCHC 30.3 g/dL (31.0-37.0) L 07/20/17 05:55 RDW 14.5 % (11.5-15.5) 07/20/17 05:55 Plt Count 151 k/uL (150-450) 07/20/17 05:55 Neutrophils % 89 % 07/20/17 05:55 Lymphocytes % 5 % 07/20/17 05:55 Monocytes % 4 % 07/20/17 05:55 Eosinophils % 0 % 07/20/17 05:55 Basophils % 0 % 07/20/17 05:55 Neutrophils # 14.7 k/uL (1.3-7.7) H 07/20/17 05:55 Lymphocytes # 0.8 k/uL (1.0-4.8) L 07/20/17 05:55 Monocytes # 0.7 k/uL (0-1.0) 07/20/17 05:55 Eosinophils # 0.0 k/uL (0-0.7) 07/20/17 05:55 Basophils # 0.0 k/uL (0-0.2) 07/20/17 05:55 Hypochromasia Marked 07/20/17 05:55 PT 11.5 sec (9.0-12.0) 07/19/17 20:25 INR 1.2 (<1.2) H 07/19/17 20:25 APTT 22.3 sec (22.0-30.0) 07/19/17 20:25 Sodium 137 mmol/L (137-145) 07/20/17 05:55 Potassium 5.2 mmol/L (3.5-5.1) H 07/20/17 05:55 Chloride 105 mmol/L (98-107) 07/20/17 05:55 Carbon Dioxide 22 mmol/L (22-30) 07/20/17 05:55 Anion Gap 10 mmol/L 07/20/17 05:55 BUN 32 mg/dL (7-17) H 07/20/17 05:55 Creatinine 1.19 mg/dL (0.52-1.04) H 07/20/17 05:55 Est GFR (MDRD) Af Amer 55 (>60 ml/min/1.73 sqM) 07/20/17 05:55 Est GFR (MDRD) Non-Af 45 (>60 ml/min/1.73 sqM) 07/20/17 05:55 Glucose 91 mg/dL (74-99) 07/20/17 05:55 Lactic Ac Sepsis Rflx Y 07/19/17 21:30 Plasma Lactic Acid Glenn 2.0 mmol/L (0.7-2.0) 07/20/17 00:41 Calcium 9.4 mg/dL (8.4-10.2) 07/20/17 05:55 Magnesium 1.6 mg/dL (1.6-2.3) 07/20/17 05:55 Troponin I <0.012 ng/mL (0.000-0.034) 07/19/17 20:25 NT-Pro-B Natriuret Pep 4500 pg/mL 07/19/17 20:25 Urine Color Yellow 07/19/17 21:15 Urine Appearance Cloudy (Clear) H 07/19/17 21:15 Urine pH 5.0 (5.0-8.0) 07/19/17 21:15 Ur Specific Julian 1.017 (1.001-1.035) 07/19/17 21:15 Urine Protein Trace (Negative) H 07/19/17 21:15 Urine Glucose (UA) Negative (Negative) 07/19/17 21:15 Urine Ketones Trace (Negative) H 07/19/17 21:15 Urine Blood Negative (Negative) 07/19/17 21:15 Urine Nitrite Positive (Negative) H 07/19/17 21:15 Urine Bilirubin Negative (Negative) 07/19/17 21:15 Urine Urobilinogen <2.0 mg/dL (<2.0) 07/19/17 21:15 Ur Leukocyte Esterase Moderate (Negative) H 07/19/17 21:15 Urine RBC 1 /hpf (0-5) 07/19/17 21:15 Urine WBC 12 /hpf (0-5) H 07/19/17 21:15 Ur Squamous Epith Cells 2 /hpf (0-4) 07/19/17 21:15 Urine Bacteria Many /hpf (None) H 07/19/17 21:15 Urine Mucus Rare /hpf (None) H 07/19/17 21:15 Microbiology 07/19/17 21:15 Urine,Voided Urine Culture - Preliminary Gram Neg Bacilli Assessment and Plan (1) Bilateral lower leg cellulitis Narrative/Plan: 67-year-old woman presents to hospital with bilateral lower extremity swelling increasing shortness of breath also occurring. She does have some urinary incontinence. She does have a history of prior urinary tract infections. She believes she may had a bit of a fever at home even. Has developed a fever while in hospital. It is some is likely there is a gram-negative urinary tract infection, most recently had E. coli. Blood cultures are in process. Antibiotic therapy with Rocephin is being utilized. She also give some improvement to the lower extremities. Improve diuresis, as well as local care to the lower extremities with Silvadene and wraps will be utilized. Elevated May she can. There was an elevated lactic acid admission this is improved with hydration within the basis of the gram-negative sepsis from her urinary tract infection. Leukocytosis likely also related to the current urinary tract infection. Status: Acute (2) Leukocytosis Status: Acute (3) UTI (urinary tract infection) Status: Acute
[2017-07-20] MEDS: SILVER sulfADIAZINE Cream 400 GM 1 APPLIC APPLIC TOPICAL SCH ×2 (23:58→23:59)
[2017-07-21] MEDS: ACETAMINOPHEN TAB 325 MG TAB PO PRN ×2 (00:04→16:39)
[2017-07-21] MEDS: FUROSEMIDE 40 MG TAB PO SCH (06:23)
[2017-07-21] MEDS: VANCOMYCIN 2,500 MG in SODIUM CHLORIDE 0.9% 500 ML IVPB SCH (06:23)
[2017-07-21] MEDS: SODIUM CHLORIDE 0.9% 1,000 ML IV SCH ×2 (06:24→15:07)
[2017-07-21] MEDS: cloNIDine HCL 0.1 MG TAB PO SCH ×2 (06:24→22:07)
[2017-07-21 06:29] LABS: Calcium 9.2 mg/dL (8.4-10.2); Potassium 4.6 mmol/L (3.5-5.1)
[2017-07-21] MEDS: MULTIVITAMINS, THERA 1 EACH TAB PO SCH (08:23)
[2017-07-21] MEDS: APIXABAN 5 MG TAB PO SCH ×2 (08:23→22:06)
[2017-07-21] MEDS: METOPROLOL SUCCINATE (ER) 100 MG TAB.ER.24H PO SCH (08:23)
[2017-07-21] MEDS: cefTRIAXone 2,000 MG in SODIUM CHLORIDE 0.9% 100 ML IVPB SCH (08:23)
[2017-07-21] MEDS: SYMBICORT 80-4.5 MCG INHALER INHALATION SCH ×2 (09:26→20:19)
[2017-07-21 10:43] LABS: CH 28.8; HCT 44.8 % (34.0-46.0); HDW 2.82; HGB 13.5 gm/dL (11.4-16.0); Hypochromasia Marked; MCH 29.1 pg (25.0-35.0); MCHC 30.1 g/dL (31.0-37.0); MCV 96.6 fL (80.0-100.0); Mean Platelet Volume 9.6; RBC 4.64 m/uL (3.80-5.40); RDW 15.5 % (11.5-15.5); WBC 9.6 k/uL (3.8-10.6)
--- NOTE | 2017-07-21 13:43 | PN ---
PROGRESS NOTE Mrs. Robertson is 67-year-old female with a known history of hypertension, morbid obesity, chronic atrial fibrillation who was followed by Dr. Child on a regular basis, who presented with progressive dyspnea and worsening in her cellulitis. She is feeling better today. Her breathing has been stable. She denies any symptoms of chest pain. She denies any dizziness. She continues to be at this time on Eliquis 5 mg twice a day, clonidine 0.1 mg twice a day. Lasix 40 mg daily, metoprolol succinate 200 mg daily in addition to vancomycin and Piperacillin. PHYSICAL EXAMINATION: Blood pressure 104/60 with a heart rate 110. LUNGS: Clear anteriorly. HEART: Irregular regular S1, S2. No S3. No rub. ABDOMEN: Soft, obese, nontender. EXTREMITIES: With emmy wrapping in place. LAB DATA: BUN and creatinine 31 and 1.2. Potassium 4.6. IMPRESSION: 1. Severe cellulitis. 2. Morbid obesity. 3. Chronic atrial fibrillation, anticoagulated. 4. Obstructive sleep apnea. RECOMMENDATION: From the cardiac standpoint, I will continue present therapy. We will follow her renal function closely. Follow her blood pressure and depending on that, further adjustment of her medical regimen will be made. MMODL / IJN: [id number] /
[2017-07-21 13:49] LABS: CH 28.8; CHCM 29.9; HCT 43.2 % (34.0-46.0); HGB 12.9 gm/dL (11.4-16.0); Hypochromasia Marked; MCH 29.1 pg (25.0-35.0); Mean Platelet Volume 9.4; RBC 4.45 m/uL (3.80-5.40); RDW 15.4 % (11.5-15.5); WBC 8.6 k/uL (3.8-10.6)
--- NOTE | 2017-07-21 15:07 | P.PN ---
Subjective 's admitted for sepsis secondary to bilateral lower limb cellulitis and multiple ulcerations and wounds and patient had Errol bandages today feeling better compared to yesterday. Her shortness of breath improved still remains on for tophi liters of oxygen. Head wheezing did improve Patient denied any shortness of breath denied any chest pain denied any nausea vomiting although patient appears to be bit short of breath at rest. Objective - Vital Signs Vital signs: Vital Signs Temp 98.1 F 07/21/17 12:00 Pulse 110 H 07/21/17 12:00 Resp 20 07/21/17 12:00 BP 104/66 07/21/17 12:00 Pulse Ox 91 L 07/21/17 12:00 Intake & Output 07/20/17 07/21/17 07/21/17 18:59 06:59 18:59 Intake Total 95 860 Balance 95 860 Weight 189 kg Intake: IV 20 40 Invasive Line 3 20 40 Intake, IV Titration 75 600 Amount Sodium Chloride 0.9% 1, 75 000 ml @ 100 mls/hr IV . Q10H [facility] Rx#:[id number] Vancomycin 2,500 mg In 500 Sodium Chloride 0.9% 500 ml @ 167 mls/hr IVPB Q24H [facility] Rx#:[id number] cefTRIAXone 2,000 mg In 100 Sodium Chloride 0.9% 100 ml @ 100 mls/hr IVPB Q24HR [facility] Rx#:[id number] Oral 220 Other: Voiding Method Bedpan Bedpan Bedpan # Voids 1 1 1 - Exam HEENT: Anicteric conjunctiva are pink and moist nasal mucosa grossly intact without significant lesions, there is no thrush. Upper Neck: The neck is supple without significant lymphadenopathy or thyromegaly. Lungs: Evidence of symmetrical air entry. There is evidence of. Wheezing did improve compared to yesterday. No brenden bronchial sounds are heard. No dullness is noted. Heart: Irregular with audible S1 and S2 no S3 soft S4 no distinct murmur click or rub. PMI is in his fever thrill Abdomen: Obese, Positive bowel sounds soft with minimal tenderness. There is evidence of no palpable organomegaly. She is minimal epigastric discomfort. No palpable hepatosplenomegaly. Extremities: The upper extremities without acute difficulties IV site is intact. The bilateral lower extremities reveal evidence of the chronic extensive edema. There is significant dry skin that is crusty and scaly. Some small areas that had some serous drainage. The rest of the skin is without open lesions Neuro awake and alert without new acute gross focal sensory motor deficits - Labs CBC & Chem 7: 07/21/17 13:19 07/21/17 05:35 Labs: Abnormal Lab Results - Last 24 Hours (Table) 07/21/17 07/21/17 07/21/17 Range/Units 05:35 10:11 13:19 MCHC 30.1 L 30.0 L (31.0-37.0) g/dL BUN 31 H (7-17) mg/dL Creatinine 1.20 H (0.52-1.04) mg/dL Microbiology - Last 24 Hours (Table) 07/19/17 20:25 Blood Culture - Preliminary Blood No Growth after 24 hours 07/19/17 21:15 Urine Culture - Preliminary Urine,Voided Gram Neg Bacilli Assessment and Plan Plan: #1 severe sepsis: Secondary to bilateral lower limb cellulitis patient is on vancomycin as well as ceftriaxone and infectious disease evaluated the patient patient has significant swelling of bilateral lower limbs chronic lymphedema and the has cellulitis probably is bilateral with significant redness local is of temperature patient will need good local wound care as an outpatient . Patient the is believed to have urinary tract infection as well. #2 hyper kalemia: Secondary to spironolactone and losartan which will be discontinued. Improved now after And this condition of above-mentioned medications. #3 acute renal failure probably due to intravascular depletion patient although does have significant swelling in bilateral lower limbs although I do not believe patient is an cc CHF exacerbation will not start her on a IV Lasix and IV fluids patient will continued on oral Lasix. #4 atrial fibrillation with rapid ventricular rate, patient will be restarted back on her beta donna and clonidine . And patient will continue with her anticoagulation. #5asthma or COPD exacerbation: Patient was started on inhalational steroids and if there is no improvement in her hypoxemia patient was started on systemic steroids. Improved compared to yesterday #6 acute on chronic hypoxic respiratory failure call: Secondary to COPD exacerbation along with the sepsis #7 moderate obesity, with probability of obesity hypoventilation syndrome. #8 CHF probably chronic diastolic dysfunction at not believe patient in acute exacerbation at this point of time #9 atrial fibrillation: Presently fairly rate controlled now will try to taper down clonidine with caution because of concerns of increasing heart rate patient is presently hypotensive
[2017-07-21] MEDS: MAGNESIUM SULFATE-D5W PMX 1 GM in DEXTROSE/WATER 1 100ML.BAG IVPB SCH (16:35)
[2017-07-21] MEDS: MONTELUKAST 10 MG TAB PO SCH (16:41)
--- NOTE | 2017-07-21 21:29 | P.PN ---
Subjective Progress Note Date: 07/21/17 Principal diagnosis: Sepsis 67-year-old female with history of congestive heart failure as well as obesity presents to the emergency center with increasing lower extremity edema and increasing shortness of breath. Upon presentation there was evidence of hypoxia requiring oxygen supplementation. She's been treated with respiratory treatments and has had some improvement of her shortness of breath. She over has the chronic lower extremity edema with the extensive erythema this year is concerned about. She relates that she was feeling quite poorly at home which prompted her to present to the emergency center. She denying severe cough or sputum production. She denies hemoptysis. She's having no chest pain at this time. She denies nausea or emesis and no brenden abdominal pain. No trauma to the lower extremities. It is noted there may have been some difficulty with her medications at home. Feeling somewhat better today. Findings the lower extremity wraps to be very soothing. The edema is slightly improved. She did have fever earlier which is a better today. No further chills or rigors. Objective - Vital Signs Vital signs: Vital Signs Temp 98.1 F 07/21/17 12:00 Pulse 110 H 07/21/17 16:00 Resp 20 07/21/17 16:00 BP 99/55 07/21/17 16:00 Pulse Ox 91 L 07/21/17 12:00 Intake & Output 07/21/17 07/21/17 07/22/17 06:59 18:59 06:59 Intake Total 95 1100 Balance 95 1100 Weight 189 kg Intake: IV 20 60 Invasive Line 3 20 60 Intake, IV Titration 75 600 Amount Sodium Chloride 0.9% 1, 75 000 ml @ 100 mls/hr IV . Q10H [facility] Rx#:[id number] Vancomycin 2,500 mg In 500 Sodium Chloride 0.9% 500 ml @ 167 mls/hr IVPB Q24H [facility] Rx#:[id number] cefTRIAXone 2,000 mg In 100 Sodium Chloride 0.9% 100 ml @ 100 mls/hr IVPB Q24HR [facility] Rx#:[id number] Oral 440 Other: Voiding Method Bedpan Bedpan # Voids 1 1 - Exam 65-year-old female who suffers from obesity who seems to be comfortable at this point in time. HEENT: Anicteric conjunctiva are pink and moist nasal mucosa grossly intact without significant lesions, there is no thrush. Upper Neck: The neck is supple without significant lymphadenopathy or thyromegaly. Lungs: Evidence of symmetrical air entry. There is evidence of. X-ray wheezes are scattered. No brenden bronchial sounds are heard. No dullness is noted. Heart: Irregular with audible S1 and S2 no S3 soft S4 no distinct murmur click or rub. PMI is in his fever thrill Abdomen: Obese, Positive bowel sounds soft with minimal tenderness. There is evidence of no palpable organomegaly. She is minimal epigastric discomfort. No palpable hepatosplenomegaly. Extremities: The upper extremities without acute difficulties IV site is intact. The bilateral lower extremities reveal evidence of the chronic extensive edema. There is significant dry skin that is crusty and scaly. Some small areas that had some serous drainage. The rest of the skin is without open lesions Neuro awake and alert without new acute gross focal sensory motor deficits - Labs CBC & Chem 7: 07/21/17 13:19 07/21/17 05:35 Labs: Abnormal Lab Results - Last 24 Hours (Table) 07/21/17 07/21/17 07/21/17 Range/Units 05:35 10: 13:19 MCHC 30.1 L 30.0 L (31.0-37.0) g/dL BUN 31 H (7-17) mg/dL Creatinine 1.20 H (0.52-1.04) mg/dL Microbiology - Last 24 Hours (Table) 07/19/17 20:25 Blood Culture - Preliminary Blood No Growth after 24 hours 07/19/17 21:15 Urine Culture - Preliminary Urine,Voided Gram Neg Bacilli Laboratory Results WBC 8.6 k/uL (3.8-10.6) 07/21/17 13:19 RBC 4.45 m/uL (3.80-5.40) 07/21/17 13:19 Hgb 12.9 gm/dL (11.4-16.0) 07/21/17 13:19 Hct 43.2 % (34.0-46.0) 07/21/17 13:19 MCV 97.0 fL (80.0-100.0) 07/21/17 13:19 MCH 29.1 pg (25.0-35.0) 07/21/17 13:19 MCHC 30.0 g/dL (31.0-37.0) L 07/21/17 13:19 RDW 15.4 % (11.5-15.5) 07/21/17 13:19 Plt Count 150 k/uL (150-450) 07/21/17 13:19 Neutrophils % 89 % 07/20/17 05:55 Lymphocytes % 5 % 07/20/17 05:55 Monocytes % 4 % 07/20/17 05:55 Eosinophils % 0 % 07/20/17 05:55 Basophils % 0 % 07/20/17 05:55 Neutrophils # 14.7 k/uL (1.3-7.7) H 07/20/17 05:55 Lymphocytes # 0.8 k/uL (1.0-4.8) L 07/20/17 05:55 Monocytes # 0.7 k/uL (0-1.0) 07/20/17 05:55 Eosinophils # 0.0 k/uL (0-0.7) 07/20/17 05:55 Basophils # 0.0 k/uL (0-0.2) 07/20/17 05:55 Hypochromasia Marked 07/21/17 13:19 PT 11.5 sec (9.0-12.0) 07/19/17 20:25 INR 1.2 (<1.2) H 07/19/17 20:25 APTT 22.3 sec (22.0-30.0) 07/19/17 20:25 Sodium 138 mmol/L (137-145) 07/21/17 05:35 Potassium 4.6 mmol/L (3.5-5.1) 07/21/17 05:35 Chloride 106 mmol/L (98-107) 07/21/17 05:35 Carbon Dioxide 24 mmol/L (22-30) 07/21/17 05:35 Anion Gap 8 mmol/L 07/21/17 05:35 BUN 31 mg/dL (7-17) H 07/21/17 05:35 Creatinine 1.20 mg/dL (0.52-1.04) H 07/21/17 05:35 Est GFR (MDRD) Af Amer 54 (>60 ml/min/1.73 sqM) 07/21/17 05:35 Est GFR (MDRD) Non-Af 45 (>60 ml/min/1.73 sqM) 07/21/17 05:35 Glucose 84 mg/dL (74-99) 07/21/17 05:35 Lactic Ac Sepsis Rflx Y 07/19/17 21:30 Plasma Lactic Acid Glenn 2.0 mmol/L (0.7-2.0) 07/20/17 00:41 Calcium 9.2 mg/dL (8.4-10.2) 07/21/17 05:35 Magnesium 1.6 mg/dL (1.6-2.3) 07/21/17 13:19 Troponin I <0.012 ng/mL (0.000-0.034) 07/19/17 20:25 NT-Pro-B Natriuret Pep 4500 pg/mL 07/19/17 20:25 Urine Color Yellow 07/19/17 21:15 Urine Appearance Cloudy (Clear) H 07/19/17 21:15 Urine pH 5.0 (5.0-8.0) 07/19/17 21:15 Ur Specific [place] 1.017 (1.001-1.035) 07/19/17 21:15 Urine Protein Trace (Negative) H 07/19/17 21:15 Urine Glucose (UA) Negative (Negative) 07/19/17 21:15 Urine Ketones Trace (Negative) H 07/19/17 21:15 Urine Blood Negative (Negative) 07/19/17 21:15 Urine Nitrite Positive (Negative) H 07/19/17 21:15 Urine Bilirubin Negative (Negative) 07/19/17 21:15 Urine Urobilinogen <2.0 mg/dL (<2.0) 07/19/17 21:15 Ur Leukocyte Esterase Moderate (Negative) H 07/19/17 21:15 Urine RBC 1 /hpf (0-5) 07/19/17 21:15 Urine WBC 12 /hpf (0-5) H 07/19/17 21:15 Ur Squamous Epith Cells 2 /hpf (0-4) 07/19/17 21:15 Urine Bacteria Many /hpf (None) H 07/19/17 21:15 Urine Mucus Rare /hpf (None) H 07/19/17 21:15 Microbiology 07/19/17 20:25 Blood Blood Culture - Preliminary No Growth after 24 hours 07/19/17 21:15 Urine,Voided Urine Culture - Preliminary Gram Neg Bacilli Assessment and Plan (1) Bilateral lower leg cellulitis Narrative/Plan: 67-year-old woman presents to hospital with bilateral lower extremity swelling increasing shortness of breath also occurring. She does have some urinary incontinence. She does have a history of prior urinary tract infections. She believes she may had a bit of a fever at home even. Has developed a fever while in hospital. It is some is likely there is a gram-negative urinary tract infection, most recently had E. coli. Blood cultures are in process. Antibiotic therapy with Rocephin is being utilized. She also has some improvement to the lower extremities. Improve diuresis, as well as local care to the lower extremities with Silvadene and wraps will be utilized. Elevated May she can. There was an elevated lactic acid admission this is improved with hydration within the basis of the gram-negative sepsis from her urinary tract infection. Leukocytosis likely also related to the current urinary tract infection. Status: Acute (2) Leukocytosis Status: Acute (3) UTI (urinary tract infection) Status: Acute
[2017-07-21] MEDS: SILVER sulfADIAZINE Cream 400 GM 1 APPLIC APPLIC TOPICAL SCH (22:07)
[2017-07-21] MEDS: METOPROLOL SUCCINATE (ER) 50 MG TAB.ER.24H PO SCH (22:07)
[2017-07-22] MEDS ORDERED: VANCOMYCIN TROUGH DUE 1 EACH MISC MISCELLANE ONE (05:00)
[2017-07-22] MEDS: SODIUM CHLORIDE 0.9% 1,000 ML IV SCH ×2 (05:52→08:58)
[2017-07-22 06:22] LABS: CH 27.9; CHCM 28.9; HCT 44.3 % (34.0-46.0); HDW 2.81; HGB 13.2 gm/dL (11.4-16.0); Hypochromasia Marked; MCHC 29.9 g/dL (31.0-37.0); MCV 97.3 fL (80.0-100.0); Mean Platelet Volume 8.7; RBC 4.55 m/uL (3.80-5.40); RDW 14.4 % (11.5-15.5); WBC 10.9 k/uL (3.8-10.6)
[2017-07-22 06:37] LABS: Anion Gap 8 mmol/L; Blood Urea Nitrogen 31 mg/dL (7-17); Calcium 9.5 mg/dL (8.4-10.2); Carbon Dioxide 27 mmol/L (22-30); Chloride 102 mmol/L (98-107); Glucose 99 mg/dL (74-99); Non-African American GFR(MDRD) 50 (>60 ml/min/1.73 sqM); Potassium 4.7 mmol/L (3.5-5.1); Sodium 137 mmol/L (137-145)
[2017-07-22] MEDS: VANCOMYCIN 2,500 MG in SODIUM CHLORIDE 0.9% 500 ML IVPB SCH (07:00)
[2017-07-22] MEDS: ACETAMINOPHEN TAB 325 MG TAB PO PRN ×2 (07:07→15:40)
[2017-07-22] MEDS: FUROSEMIDE 40 MG TAB PO SCH (07:08)
[2017-07-22] MEDS ORDERED: IPRATROPIUM-ALBUTEROL 3 ML NEB INHALATION PRN (07:13)
[2017-07-22] MEDS: SYMBICORT 80-4.5 MCG INHALER INHALATION SCH ×2 (07:50→20:10)
[2017-07-22] MEDS: cefTRIAXone 2,000 MG in SODIUM CHLORIDE 0.9% 100 ML IVPB SCH (08:55)
[2017-07-22] MEDS: APIXABAN 5 MG TAB PO SCH (08:57)
[2017-07-22] MEDS: cloNIDine HCL 0.1 MG TAB PO SCH (08:57)
[2017-07-22] MEDS: MULTIVITAMINS, THERA 1 EACH TAB PO SCH (08:57)
[2017-07-22] MEDS: METOPROLOL SUCCINATE (ER) 50 MG TAB.ER.24H PO SCH (08:57)
[2017-07-22] MEDS: METOPROLOL SUCCINATE (ER) 100 MG TAB.ER.24H PO SCH (08:57)
[2017-07-22] MEDS: SILVER sulfADIAZINE Cream 400 GM 1 APPLIC APPLIC TOPICAL SCH (09:00)
[2017-07-22 11:54] VITALS: RESP 22
--- NOTE | 2017-07-22 14:30 | P.PN ---
Subjective Progress Note Date: 07/22/17 Principal diagnosis: Sepsis This is a pleasant 67-year-old female with a history of hypertension, morbid obesity, chronic atrial fibrillation and follows with Dr. Child in the office. She presented to the hospital with complaints of worsening cellulitis and progressive dyspnea. She is feeling quite a bit better today. Her breathing has improved. She's not had any chest discomfort, dizziness, lightheadedness or palpitations. She's also noticed significant improvement in her cellulitis. Currently has Errol wrap Bilaterally. Continues on Eliquis 5 mg twice a day, clonidine 0.1 mg twice a day, Lasix 40 mg daily and metoprolol succinate 200 mg by mouth daily. Vital signs are stable and her rate is relatively well controlled. Objective - Vital Signs Vital signs: Vital Signs Temp 98.5 F 07/22/17 11:53 Pulse 100 07/22/17 11:53 Resp 22 07/22/17 11:53 BP 118/62 07/22/17 11:53 Pulse Ox 90 L 07/22/17 11:53 Intake & Output 07/21/17 07/22/17 07/22/17 18:59 06:59 18:59 Intake Total 1100 1880 Output Total 450 Balance 1100 1430 Weight 194.6 kg Intake: IV 60 Invasive Line 3 60 Intake, IV Titration 600 1200 Amount Sodium Chloride 0.9% 1, 1200 000 ml @ 100 mls/hr IV . Q10H [facility] Rx#:[id number] Vancomycin 2,500 mg In 500 Sodium Chloride 0.9% 500 ml @ 167 mls/hr IVPB Q24H [facility] Rx#:[id number] cefTRIAXone 2,000 mg In 100 Sodium Chloride 0.9% 100 ml @ 100 mls/hr IVPB Q24HR [facility] Rx#:[id number] Oral 440 680 Output: Urine 450 Other: Voiding Method Bedpan Bedpan Bedpan # Voids 1 2 1 - Exam PHYSICAL EXAMINATION: HEENT: [Head is atraumatic, normocephalic. Pupils equal, round. Neck is supple. There is no elevated jugular venous pressure.] HEART EXAMINATION: [Heart sounds irregularly irregular, S1 and S2 normal. No murmur or gallop heard.] CHEST EXAMINATION:[ Lungs reveal diminished air entry bilaterally. No chest wall tenderness is noted on palpation or with deep breathing.] ABDOMEN: [ Soft, nontender. Bowel sounds are heard. No organomegaly noted]. EXTREMITIES:[ Evidence of peripheral edema and ERROL wraps bilateral lower legs]. NEUROLOGIC [patient is awake, alert and oriented x3.] . - Labs CBC & Chem 7: 07/22/17 05:31 07/22/17 05:35 Labs: Abnormal Lab Results - Last 24 Hours (Table) 07/22/17 07/22/17 Range/Units 05:31 05:35 WBC 10.9 H (3.8-10.6) k/uL MCHC 29.9 L (31.0-37.0) g/dL BUN 31 H (7-17) mg/dL Creatinine 1.10 H (0.52-1.04) mg/dL Microbiology - Last 24 Hours (Table) 07/19/17 20:25 Blood Culture - Preliminary Blood No Growth after 48 hours 07/19/17 21:15 Urine Culture - Final Urine,Voided Escherichia coli Assessment and Plan Plan: Assessment and plan #1 severe cellulitis #2 morbid obesity #3 chronic atrial fibrillation, anticoagulated #4 obstructive sleep apnea On cardiology's perspective, patient may be discharged home today medications. She will follow up in the office with Dr. Child in about 3-4 weeks. B[facility] HAND note has been reviewed, I agree with a documented findings and plan of care. Patient was seen and examined.
[2017-07-22 15:06] VITALS: BP 111/67; PULSE 106; TEMP 98.9
--- NOTE | 2017-07-22 16:04 | P.DS ---
Providers Date of admission: 07/19/17 21:55 Attending physician: Bud Allred Consults: 07/19/17 21:57 Consult Physician Routine Consulting Provider: Aleks Shepherd Consult Reason/Comments: cellulitis, sepsis Do you want consulting provider notified?: Yes 07/20/17 14:01 Consult Physician Routine Consulting Provider: Chula Abdi Consult Reason/Comments: A.fib Do you want consulting provider notified?: Yes Primary care physician: Anuel Dominique Hospital Course: patient was admitted for sepsis secondary to bilateral lower limb cellulitis and multiple ulcerations and wounds and patient had Errol bandages today feeling better compared to yesterday. Her shortness of breath improved still remains on for tophi liters of oxygen. Head wheezing did improve 07/22/2017 Patient is feeling better wanted to will be discharged her respiratory status is at her baseline patient's clonidine was discontinued and instead patient was started on Cardizem patient was cleared by Cardiology perspective will await recommendations from infectious disease, after ID clearance patient probably will be discharged today. Patient denied any shortness of breath denied any chest pain denied any nausea vomiting although patient appears to be bit short of breath at rest. HEENT: Anicteric conjunctiva are pink and moist nasal mucosa grossly intact without significant lesions, there is no thrush. Upper Neck: The neck is supple without significant lymphadenopathy or thyromegaly. Lungs: Evidence of symmetrical air entry. There is evidence of. Wheezing did improve compared to yesterday. No brenden bronchial sounds are heard. No dullness is noted. Heart: Irregular with audible S1 and S2 no S3 soft S4 no distinct murmur click or rub. PMI is in his fever thrill Abdomen: Obese, Positive bowel sounds soft with minimal tenderness. There is evidence of no palpable organomegaly. She is minimal epigastric discomfort. No palpable hepatosplenomegaly. Extremities: The upper extremities without acute difficulties IV site is intact. The bilateral lower extremities reveal evidence of the chronic extensive edema. There is significant dry skin that is crusty and scaly. Some small areas that had some serous drainage. The rest of the skin is without open lesions Neuro awake and alert without new acute gross focal sensory motor deficits #1 severe sepsis: Secondary to bilateral lower limb cellulitis patient is on vancomycin as well as ceftriaxone discharge antibiotics as per infectious disease #2 hyper kalemia: Secondary to spironolactone and losartan which will be discontinued. Improved now after And this condition of above-mentioned medications. #3 acute renal failure probably due to intravascular depletion improved after discontinuation of all that on and lisinopril, Lasix will be continued #4 atrial fibrillation with rapid ventricular rate, patient will be continued on beta donna and Cardizem was added, discontinuing clonidine #5asthma or COPD exacerbation: improved with inhalational steroids #6 acute on chronic hypoxic respiratory failure call: Secondary to COPD exacerbation along with the sepsis #7 moderate obesity, with probability of obesity hypoventilation syndrome. #8 CHF probably chronic diastolic dysfunction at not believe patient in acute exacerbation at this point of time #9 atrial fibrillation: Presently fairly rate controlled now Plan - Discharge Summary New Discharge Prescriptions: New Diltiazem Cd [Cardizem Cd] 240 mg PO DAILY #30 cap.er.24h Discontinued amLODIPine [Norvasc] 10 mg PO DAILY@1700 cloNIDine HCL [Catapres] 0.1 mg PO TID@0600,1300,2200 Spironolactone [Aldactone] 25 mg PO DAILY@1300 Losartan [Cozaar] 25 mg PO DAILY@1300 Metoprolol Succinate (ER) [Toprol Xl] 50 mg PO HS No Action Montelukast [Singulair] 10 mg PO DAILY@1700 Fluticasone/Salmeterol [Advair 250-50 Diskus] 1 puff INHALATION RT-BID Furosemide 40 mg PO DAILY@0600 Aspirin [Adult Low Dose Aspirin EC] 81 mg PO DAILY@0600 Multivitamins, Thera [Multivitamin (formulary)] 1 tab PO DAILY Lansoprazole [Prevacid] 15 mg PO DAILY PRN PRN Reason: Gi Upset Fexofenadine HCl [Sarita Allergy] 180 mg PO DAILY PRN PRN Reason: Allergy Symptoms Acetaminophen Tab [Tylenol Tab] 1,500 mg PO BID Apixaban [Eliquis] 5 mg PO BID tab Metoprolol Succinate (ER) [Toprol Xl] 200 mg PO QAM Ipratropium-Albuterol Nebulize [Duoneb 0.5 mg-3 mg/3 ml Soln] 3 ml INHALATION RT-QID PRN PRN Reason: Shortness Of Breath Discharge Medication List Aspirin [Adult Low Dose Aspirin EC] 81 mg PO DAILY@0600 11/18/15 [History] Fluticasone/Salmeterol [Advair 250-50 Diskus] 1 puff INHALATION RT-BID 11/18/15 [History] Furosemide 40 mg PO DAILY@0600 11/18/15 [History] Montelukast [Singulair] 10 mg PO DAILY@1700 11/18/15 [History] Multivitamins, Thera [Multivitamin (formulary)] 1 tab PO DAILY 11/18/15 [History ] Acetaminophen Tab [Tylenol Tab] 1,500 mg PO BID 03/11/17 [History] Fexofenadine HCl [Sarita Allergy] 180 mg PO DAILY PRN 03/11/17 [History] Lansoprazole [Prevacid] 15 mg PO DAILY PRN 03/11/17 [History] Apixaban [Eliquis] 5 mg PO BID tab 03/16/17 [Rx] Ipratropium-Albuterol Nebulize [Duoneb 0.5 mg-3 mg/3 ml Soln] 3 ml INHALATION RT -QID PRN 07/19/17 [History] Metoprolol Succinate (ER) [Toprol Xl] 200 mg PO QAM 07/19/17 [History] Diltiazem Cd [Cardizem Cd] 240 mg PO DAILY #30 cap.er.24h 07/22/17 [Rx] Follow up Appointment(s)/Referral(s): Catina Agee MD [Primary Care Provider] - 07/26/17 2:20 pm [facility], [NON-STAFF] - As Needed Discharge Disposition: TRANSFER TO SNF/ECF
[2017-07-22] MEDS: MONTELUKAST 10 MG TAB PO SCH (16:32)
--- NOTE | 2017-07-22 20:39 | P.PN ---
Subjective Progress Note Date: 07/22/17 Principal diagnosis: Sepsis 67-year-old female with history of congestive heart failure as well as obesity presents to the emergency center with increasing lower extremity edema and increasing shortness of breath. Upon presentation there was evidence of hypoxia requiring oxygen supplementation. She's been treated with respiratory treatments and has had some improvement of her shortness of breath. She over has the chronic lower extremity edema with the extensive erythema this year is concerned about. She relates that she was feeling quite poorly at home which prompted her to present to the emergency center. She denying severe cough or sputum production. She denies hemoptysis. She's having no chest pain at this time. She denies nausea or emesis and no brenden abdominal pain. No trauma to the lower extremities. It is noted there may have been some difficulty with her medications at home. Feeling somewhat better today. Findings the lower extremity wraps to be very soothing. The edema is slightly improved. No further chills or rigors. Objective - Vital Signs Vital signs: Vital Signs Temp 98.9 F 07/22/17 15:05 Pulse 106 H 07/22/17 15:06 Resp 22 07/22/17 15:06 BP 111/67 07/22/17 15:05 Pulse Ox 92 L 07/22/17 15:05 Intake & Output 07/22/17 07/22/17 07/23/17 06:59 18:59 06:59 Intake Total 2180 Output Total 925 Balance 1255 Weight 194.6 kg Intake: Intake, IV Titration 1200 Amount Sodium Chloride 0.9% 1, 1200 000 ml @ 100 mls/hr IV . Q10H [facility] Rx#:[id number] Oral 980 Output: Urine 925 Other: Voiding Method Bedpan Bedpan # Voids 2 1 - Exam 65-year-old female who suffers from obesity who seems to be comfortable at this point in time. HEENT: Anicteric conjunctiva are pink and moist nasal mucosa grossly intact without significant lesions, there is no thrush. Upper Neck: The neck is supple without significant lymphadenopathy or thyromegaly. Lungs: Evidence of symmetrical air entry. There is evidence of. X-ray wheezes are scattered. No brenden bronchial sounds are heard. No dullness is noted. Heart: Irregular with audible S1 and S2 no S3 soft S4 no distinct murmur click or rub. PMI is in his fever thrill Abdomen: Obese, Positive bowel sounds soft with minimal tenderness. There is evidence of no palpable organomegaly. She is minimal epigastric discomfort. No palpable hepatosplenomegaly. Extremities: The upper extremities without acute difficulties IV site is intact. The bilateral lower extremities reveal evidence of the chronic extensive edema. There is significant dry skin that is crusty and scaly. Some small areas that had some serous drainage. The rest of the skin is without open lesions Neuro awake and alert without new acute gross focal sensory motor deficits - Labs CBC & Chem 7: 07/22/17 05:31 07/22/17 05:35 Labs: Abnormal Lab Results - Last 24 Hours (Table) 07/22/17 07/22/17 Range/Units 05:31 05:35 WBC 10.9 H (3.8-10.6) k/uL MCHC 29.9 L (31.0-37.0) g/dL BUN 31 H (7-17) mg/dL Creatinine 1.10 H (0.52-1.04) mg/dL Microbiology - Last 24 Hours (Table) 07/19/17 20:25 Blood Culture - Preliminary Blood No Growth after 48 hours 07/19/17 21:15 Urine Culture - Final Urine,Voided Escherichia coli Laboratory Results WBC 10.9 k/uL (3.8-10.6) H 07/22/17 05:31 RBC 4.55 m/uL (3.80-5.40) 07/22/17 05:31 Hgb 13.2 gm/dL (11.4-16.0) 07/22/17 05:31 Hct 44.3 % (34.0-46.0) 07/22/17 05:31 MCV 97.3 fL (80.0-100.0) 07/22/17 05:31 MCH 29.0 pg (25.0-35.0) 07/22/17 05:31 MCHC 29.9 g/dL (31.0-37.0) L 07/22/17 05:31 RDW 14.4 % (11.5-15.5) 07/22/17 05:31 Plt Count 176 k/uL (150-450) 07/22/17 05:31 Neutrophils % 89 % 07/20/17 05:55 Lymphocytes % 5 % 07/20/17 05:55 Monocytes % 4 % 07/20/17 05:55 Eosinophils % 0 % 07/20/17 05:55 Basophils % 0 % 07/20/17 05:55 Neutrophils # 14.7 k/uL (1.3-7.7) H 07/20/17 05:55 Lymphocytes # 0.8 k/uL (1.0-4.8) L 07/20/17 05:55 Monocytes # 0.7 k/uL (0-1.0) 07/20/17 05:55 Eosinophils # 0.0 k/uL (0-0.7) 07/20/17 05:55 Basophils # 0.0 k/uL (0-0.2) 07/20/17 05:55 Hypochromasia Marked 07/22/17 05:31 PT 11.5 sec (9.0-12.0) 07/19/17 20:25 INR 1.2 (<1.2) H 07/19/17 20:25 APTT 22.3 sec (22.0-30.0) 07/19/17 20:25 Sodium 137 mmol/L (137-145) 07/22/17 05:35 Potassium 4.7 mmol/L (3.5-5.1) 07/22/17 05:35 Chloride 102 mmol/L (98-107) 07/22/17 05:35 Carbon Dioxide 27 mmol/L (22-30) 07/22/17 05:35 Anion Gap 8 mmol/L 07/22/17 05:35 BUN 31 mg/dL (7-17) H 07/22/17 05:35 Creatinine 1.10 mg/dL (0.52-1.04) H 07/22/17 05:35 Est GFR (MDRD) Af Amer >60 (>60 ml/min/1.73 sqM) 07/22/17 05:35 Est GFR (MDRD) Non-Af 50 (>60 ml/min/1.73 sqM) 07/22/17 05:35 Glucose 99 mg/dL (74-99) 07/22/17 05:35 Lactic Ac Sepsis Rflx Y 07/19/17 21:30 Plasma Lactic Acid [place] 2.0 mmol/L (0.7-2.0) 07/20/17 00:41 Calcium 9.5 mg/dL (8.4-10.2) 07/22/17 05:35 Magnesium 1.6 mg/dL (1.6-2.3) 07/21/17 13:19 Troponin I <0.012 ng/mL (0.000-0.034) 07/19/17 20:25 NT-Pro-B Natriuret Pep 4500 pg/mL 07/19/17 20:25 Urine Color Yellow 07/19/17 21:15 Urine Appearance Cloudy (Clear) H 07/19/17 21:15 Urine pH 5.0 (5.0-8.0) 07/19/17 21:15 Ur Specific [place] 1.017 (1.001-1.035) 07/19/17 21:15 Urine Protein Trace (Negative) H 07/19/17 21:15 Urine Glucose (UA) Negative (Negative) 07/19/17 21:15 Urine Ketones Trace (Negative) H 07/19/17 21:15 Urine Blood Negative (Negative) 07/19/17 21:15 Urine Nitrite Positive (Negative) H 07/19/17 21:15 Urine Bilirubin Negative (Negative) 07/19/17 21:15 Urine Urobilinogen <2.0 mg/dL (<2.0) 07/19/17 21:15 Ur Leukocyte Esterase Moderate (Negative) H 07/19/17 21:15 Urine RBC 1 /hpf (0-5) 07/19/17 21:15 Urine WBC 12 /hpf (0-5) H 07/19/17 21:15 Ur Squamous Epith Cells 2 /hpf (0-4) 07/19/17 21:15 Urine Bacteria Many /hpf (None) H 07/19/17 21:15 Urine Mucus Rare /hpf (None) H 07/19/17 21:15 Vancomycin Trough 19.0 ug/mL 07/22/17 05:35 Microbiology 07/19/17 20:25 Blood Blood Culture - Preliminary No Growth after 48 hours 07/19/17 21:15 Urine,Voided Urine Culture - Final Escherichia coli Assessment and Plan (1) Bilateral lower leg cellulitis Narrative/Plan: 67-year-old woman presents to hospital with bilateral lower extremity swelling increasing shortness of breath also occurring. She does have some urinary incontinence. She does have a history of prior urinary tract infections. She believes she may had a bit of a fever at home even. Has developed a fever while in hospital. It is some is likely there is a gram-negative urinary tract infection, most recently had E. coli. Blood cultures are in process. Antibiotic therapy with Rocephin is being utilized. She also has some improvement to the lower extremities. Improve diuresis, as well as local care to the lower extremities with Silvadene and wraps will be utilized. Elevated legs as she can. There was an elevated lactic acid admission this is improved with hydration within the basis of the gram-negative sepsis from her urinary tract infection. Leukocytosis likely also related to the current urinary tract infection. As she is ready for discharge to home cefuroxime 500 mg orally every 12 hours as sent to her pharmacy for the next 10 days. Status: Acute (2) Leukocytosis Status: Acute (3) UTI (urinary tract infection) Status: Acute
[2017-07-23] MEDS ORDERED: VANCOMYCIN 2,250 MG in SODIUM CHLORIDE 0.9% 500 ML IVPB SCH (06:00)
== END 2017-07-22 21:12 | disposition home health service (06) | DRG 871 ==
LOC: EC 18:42 → 6SEL 21:55
PROVIDERS: ADMIT Hospitalist; ATTEND Hospitalist
DX: A41.51 Sepsis due to Escherichia coli [E. coli] (principal); J96.21 Acute and chronic respiratory failure with hypoxia; N17.9 Acute kidney failure, unspecified; I50.32 Chronic diastolic (congestive) heart failure; J44.1 Chronic obstructive pulmonary disease with (acute) exacerbation; E66.2 Morbid (severe) obesity with alveolar hypoventilation; Z68.45 Body mass index [BMI] 70 or greater, adult; N39.0 Urinary tract infection, site not specified; L03.115 Cellulitis of right lower limb; L03.116 Cellulitis of left lower limb; I11.0 Hypertensive heart disease with heart failure; Z99.81 Dependence on supplemental oxygen; R65.20 Severe sepsis without septic shock; I48.2 Chronic atrial fibrillation; E87.5 Hyperkalemia; R32 Unspecified urinary incontinence; G47.33 Obstructive sleep apnea (adult) (pediatric); I89.0 Lymphedema, not elsewhere classified; Z79.01 Long term (current) use of anticoagulants; Z79.82 Long term (current) use of aspirin; Z79.51 Long term (current) use of inhaled steroids; Z79.899 Other long term (current) drug therapy; Z71.3 Dietary counseling and surveillance; Z87.891 Personal history of nicotine dependence; Z90.49 Acquired absence of other specified parts of digestive tract; Z87.440 Personal history of urinary (tract) infections; Z87.11 Personal history of peptic ulcer disease
CPT/HCPCS: 36415; 71010; 80048; 80202; 81001; 83605; 83735; 83880; 84484; 85025; 85027; 85610; 85730; 87040; 87077; 87086; 87186; 93005; 94640; 96361; 96365; 96366; 96374; 96375; 99285

== ENCOUNTER 2018-01-24 18:44 | Inpatient (IN) | payer MEDICARE, MEDICAID ==
[2018-01-24] MEDS ORDERED: methylPREDNISolone SOD SUCCI 125 MG/2 ML VIAL IV STA (19:27)
[2018-01-24] MEDS ORDERED: FUROSEMIDE 10 MG/ML 4 ML VIAL IV STA (19:27)
[2018-01-24] MEDS ORDERED: IPRATROPIUM-ALBUTEROL 3 ML NEB INHALATION STA (19:27)
[2018-01-24 20:33] LABS: Anisocytosis Slight; Basophils % (A) 0 %; Eosinophils # (A) 0.2 k/uL (0-0.7); Eosinophils % (A) 1 %; HCT 37.6 % (34.0-46.0); HGB 11.1 gm/dL (11.4-16.0); Hypochromasia Marked; Lymphocytes # (A) 1.7 k/uL (1.0-4.8); Lymphocytes % (A) 15 %; MCH 23.1 pg (25.0-35.0); MCHC 29.4 g/dL (31.0-37.0); MCV 78.7 fL (80.0-100.0); Mean Platelet Volume 8.9; Microcytosis Slight; Monocytes # (A) 0.6 k/uL (0-1.0); Monocytes % (A) 5 %; Neutrophils % (A) 76 %; Platelet Count 238 k/uL (150-450); RBC 4.78 m/uL (3.80-5.40); RDW 18.6 % (11.5-15.5); WBC 11.9 k/uL (3.8-10.6)
[2018-01-24 20:37] LABS: INR 1.1 (<1.2); Partial Thromboplastin Time 23.4 sec (22.0-30.0); Prothrombin Time 10.3 sec (9.0-12.0)
[2018-01-24] MEDS: DILTIAZEM 50 MG in SODIUM CHLORIDE 0.9% 40 ML IV ONE (20:37)
[2018-01-24 20:42] LABS: Albumin 3.4 g/dL (3.5-5.0); Calcium 9.9 mg/dL (8.4-10.2); Potassium 4.5 mmol/L (3.5-5.1); Total Bilirubin 0.4 mg/dL (0.2-1.3); Total Protein 6.5 g/dL (6.3-8.2)
--- NOTE | 2018-01-24 20:42 | XR ---
EXAMINATION TYPE: XR chest 1V portable DATE OF EXAM: 01/24/2018 COMPARISON: July 19, 2017 HISTORY: Short of breath TECHNIQUE: Single frontal view of the chest is obtained. FINDINGS: Heart is enlarged. There is mild pulmonary vascular congestion. I see no definite pleural effusion. Exam is limited by the patient's size. IMPRESSION: There is probably mild heart failure without change compared to old exam.
[2018-01-24 21:07] LABS: Creatine Kinase <20 U/L (30-135)
[2018-01-24 21:20] LABS: Creatine Kinase MB 1.1 ng/mL (0.0-2.4); Troponin I <0.012 ng/mL (0.000-0.034)
--- NOTE | 2018-01-24 22:46 | ED ---
SOB HPI - General Chief Complaint: Shortness of Breath Stated Complaint: LIZZIE Time Seen by Provider: 01/24/18 18:56 Source: patient Mode of arrival: EMS Limitations: no limitations - History of Present Illness Initial Comments: This 68-year-old white female presents with a complaint of shortness breath. This is been a fairly chronic problem for her. She does have a history of congestive heart failure. She essentially is been hospitalized since July 2017. She states that she was in an acute care facility and then was sent for rehab. She was then sent back to the acute care facility and again at rehab. She apparently used up her 100 days of rehab and was sent home earlier today. She is only home for 2 hours and became too dyspneic. She also was very weak. She states that she cannot ambulate. She is morbidly obese at 415 pounds. EMS brought her back to the hospital. She denies any chest pain. She does complain of lower extremity edema. She denies any fevers or chills. No other complaints or modifying factors. - Related Data Home Medications Medication Instructions Recorded Confirmed Ipratropium-Albuterol Nebulize 3 ml INHALATION RT-QID PRN 07/19/17 01/24/18 [Duoneb 0.5 mg-3 mg/3 ml Soln] Acetylcysteine Solution 20% 1 vial INHALATION Q12HR PRN 01/24/18 01/24/18 Budesonide [Pulmicort] 0.5 mg INHALATION RT-BID 01/24/18 01/24/18 Furosemide [Lasix] 20 mg PO DAILY 01/24/18 01/24/18 Furosemide [Lasix] 20 mg PO Q48H 01/24/18 01/24/18 Metoprolol Tartrate [Lopressor] 50 mg PO BID 01/24/18 01/24/18 Miconazole Nitrate [Miconazole 1 applic TOPICAL Q8H PRN 01/24/18 01/24/18 Nitrate 2%] Potassium Chloride ER [K-Dur 10] 10 meq PO DAILY 01/24/18 01/24/18 SILVER sulfADIAZINE CREAM 1 applic TOPICAL DAILY 01/24/18 01/24/18 [Silvadene Cream] Spironolactone [Aldactone] 25 mg PO DAILY 01/24/18 01/24/18 Torsemide [Demadex] 20 mg PO DAILY 01/24/18 01/24/18 Previous Rx's Medication Instructions Recorded Apixaban [Eliquis] 5 mg PO BID tab 03/16/17 Allergies Allergy/AdvReac Type Severity Reaction Status Date / Time No Known Allergies Allergy Verified 01/24/18 19:44 Review of Systems ROS Statement: Those systems with pertinent positive or pertinent negative responses have been documented in the HPI. ROS Other: All systems not noted in ROS Statement are negative. Past Medical History Past Medical History: Atrial Fibrillation, Asthma, Heart Failure, COPD, GI Bleed , Hypertension Additional Past Medical History / Comment(s): clinical impression acute diverticulitis, cellulitis ll extremitis. 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 Past Psychological History: No Psychological Hx Reported Smoking Status: Former smoker Past Alcohol Use History: None Reported Past Drug Use History: None Reported - Past Family History Father Family Medical History: Eye Disorder, Osteoarthritis (OA) Additional Family Medical History / Comment(s): at age 92 from old age, had macular degeneration Mother Family Medical History: Coronary Artery Disease (CAD), Diabetes Mellitus, Hypertension, Renal Disease Additional Family Medical History / Comment(s): cabg, dialysis General Exam - General Exam Comments Initial Comments: GENERAL: The patient is well nourished and well hydrated. She is morbidly obese. VITAL SIGNS: Heart rate, blood pressure, respiratory rate reviewed as recorded in nurse's notes. EYES: Pupils are round and reactive. Extraocular movements are intact. No conjunctival / lid redness or swelling. ENT: No external evidence of injury, swelling, or ecchymosis. Airway is patent. Throat is clear. NECK: Nontender. No swelling or evidence of injury. No subcutaneous emphysema. Trachea is midline. No thyroid mass. HEART: Tachycardic irregular rhythm noted. Good peripheral pulses. Lower extremity pitting edema noted. LUNGS/CHEST: Breath sounds clear and equal bilaterally. No rales, rhonchi, or wheezes. No ecchymosis, subcutaneous emphysema, or tenderness. ABDOMEN: Abdomen soft without tenderness. No palpable masses or organomegaly. No peritoneal signs. No abdominal wall swelling or ecchymosis. EXTREMITIES: No extremity tenderness. Normal muscle tone and function. No thoracolumbar tenderness. There is significant lower extremity edema noted. NEUROLOGIC: Sensation is grossly intact. Cranial nerve exam reveals face is symmetrical, tongue is midline, speech is clear. SKIN: No abrasions or ecchymosis is noted. No induration or masses noted. PSYCHIATRIC: Alert and oriented. Appropriate behavior and judgment. Limitations: no limitations Course Vital Signs 01/24/18 01/24/18 01/24/18 18:53 19:47 20:00 Temperature 97.0 F L Pulse Rate 137 H 104 H 107 H Respiratory 24 22 Rate Blood Pressure 157/86 145/82 O2 Sat by Pulse 83 L 97 Oximetry 01/24/18 01/24/18 20:10 20:58 Temperature Pulse Rate 115 H 122 H Respiratory 20 Rate Blood Pressure 134/78 O2 Sat by Pulse 90 L Oximetry Medical Decision Making - Medical Decision Making The patient was seen and examined. All diagnostics were reviewed. Old records were reviewed. An IV was established and she did receive some Lasix as well as aspirin and Nitropaste. She had an EKG done which shows evidence of atrial fibrillation with rapid ventricular response at a heart rate of 122. There is no acute ST-T wave changes noted. The VT intervals on measured. The QRS duration is 78, and the QTc interval is 393. A Cardizem drip is also initiated. The laboratories reviewed and does show an elevation of the BNP as well as mild anemia and mild renal insufficiency. The chest x-ray does show evidence of congestive heart failure. It is felt as though she benefit from admission to the hospital for further treatment. Is felt as though she likely will require ECF placement. Approximately 30 minutes of critical care time is utilized and the treatment of the patient. The patient and her family are updated and are agreeable with admission. The case also was discussed with internal medicine and they are agreeable with admission. - Lab Data Result diagrams: 01/24/18 20:07 01/24/18 20:07 Lab Results 01/24/18 01/24/18 01/24/18 Range/Units 20:07 20:07 20:07 WBC 11.9 H (3.8-10.6) k/uL RBC 4.78 (3.80-5.40) m/uL Hgb 11.1 L (11.4-16.0) gm/dL Hct 37.6 (34.0-46.0) % MCV 78.7 L (80.0-100.0) fL MCH 23.1 L (25.0-35.0) pg MCHC 29.4 L (31.0-37.0) g/dL RDW 18.6 H (11.5-15.5) % Plt Count 238 (150-450) k/uL Neutrophils % 76 % Lymphocytes % 15 % Monocytes % 5 % Eosinophils % 1 % Basophils % 0 % Neutrophils # 9.0 H (1.3-7.7) k/uL Lymphocytes # 1.7 (1.0-4.8) k/uL Monocytes # 0.6 (0-1.0) k/uL Eosinophils # 0.2 (0-0.7) k/uL Basophils # 0.0 (0-0.2) k/uL Hypochromasia Marked Anisocytosis Slight Microcytosis Slight PT (9.0-12.0) sec INR (<1.2) APTT (22.0-30.0) sec Sodium 141 (137-145) mmol/L Potassium 4.5 (3.5-5.1) mmol/L Chloride 97 L (98-107) mmol/L Carbon Dioxide 33 H (22-30) mmol/L Anion Gap 11 mmol/L BUN 35 H (7-17) mg/dL Creatinine 1.20 H (0.52-1.04) mg/dL Est GFR (CKD-EPI)AfAm 54 (>60 ml/min/1.73 sqM) Est GFR (CKD-EPI)NonAf 47 (>60 ml/min/1.73 sqM) Glucose 88 (74-99) mg/dL Calcium 9.9 (8.4-10.2) mg/dL Total Bilirubin 0.4 (0.2-1.3) mg/dL AST 27 (14-36) U/L ALT 17 (9-52) U/L Alkaline Phosphatase 89 (38-126) U/L Total Creatine Kinase <20 L (30-135) U/L CK-MB (CK-2) 1.1 (0.0-2.4) ng/mL CK-MB (CK-2) Rel Index Troponin I <0.012 (0.000-0.034) ng/mL NT-Pro-B Natriuret Pep pg/mL Total Protein 6.5 (6.3-8.2) g/dL Albumin 3.4 L (3.5-5.0) g/dL 01/24/18 01/24/18 Range/Units 20:07 20:07 WBC (3.8-10.6) k/uL RBC (3.80-5.40) m/uL Hgb (11.4-16.0) gm/dL Hct (34.0-46.0) % MCV (80.0-100.0) fL MCH (25.0-35.0) pg MCHC (31.0-37.0) g/dL RDW (11.5-15.5) % Plt Count (150-450) k/uL Neutrophils % % Lymphocytes % % Monocytes % % Eosinophils % % Basophils % % Neutrophils # (1.3-7.7) k/uL Lymphocytes # (1.0-4.8) k/uL Monocytes # (0-1.0) k/uL Eosinophils # (0-0.7) k/uL Basophils # (0-0.2) k/uL Hypochromasia Anisocytosis Microcytosis PT 10.3 (9.0-12.0) sec INR 1.1 (<1.2) APTT 23.4 (22.0-30.0) sec Sodium (137-145) mmol/L Potassium (3.5-5.1) mmol/L Chloride (98-107) mmol/L Carbon Dioxide (22-30) mmol/L Anion Gap mmol/L BUN (7-17) mg/dL Creatinine (0.52-1.04) mg/dL Est GFR (CKD-EPI)AfAm (>60 ml/min/1.73 sqM) Est GFR (CKD-EPI)NonAf (>60 ml/min/1.73 sqM) Glucose (74-99) mg/dL Calcium (8.4-10.2) mg/dL Total Bilirubin (0.2-1.3) mg/dL AST (14-36) U/L ALT (9-52) U/L Alkaline Phosphatase (38-126) U/L Total Creatine Kinase (30-135) U/L CK-MB (CK-2) (0.0-2.4) ng/mL CK-MB (CK-2) Rel Index Troponin I (0.000-0.034) ng/mL NT-Pro-B Natriuret Pep 2640 pg/mL Total Protein (6.3-8.2) g/dL Albumin (3.5-5.0) g/dL Disposition Clinical Impression: Hypoxia, Morbid obesity, Atrial fibrillation with rapid ventricular response, Dyspnea, CHF (congestive heart failure), Anemia, Renal insufficiency, COPD ( chronic obstructive pulmonary disease) Disposition: ADMITTED IP TO THIS HOSP Condition: Fair Time of Disposition: 22:46 Decision Date: 01/24/18 Decision Time: 22:46
[2018-01-24] MEDS ORDERED: MICONAZOLE NITRATE 2% CREAM 14 GM TUBE TOPICAL PRN (22:55)
[2018-01-24] MEDS ORDERED: ACETYLCYSTEINE 800 MG/4 ML VIAL INHALATION PRN (22:55)
[2018-01-25] MEDS: ACETAMINOPHEN TAB 325 MG TAB PO PRN ×2 (02:12→23:11)
[2018-01-25] MEDS: DILTIAZEM 50 MG in SODIUM CHLORIDE 0.9% 40 ML IV ONE ×2 (03:03→05:48)
[2018-01-25 06:57] LABS: Troponin I <0.012 ng/mL (0.000-0.034)
[2018-01-25] MEDS: FUROSEMIDE 10 MG/ML 4 ML VIAL IV SCH ×2 (08:03→20:23)
[2018-01-25] MEDS: APIXABAN 5 MG TAB PO SCH ×2 (08:03→20:23)
[2018-01-25] MEDS: SPIRONOLACTONE 25 MG TAB PO SCH (08:04)
[2018-01-25] MEDS: POTASSIUM CHLORIDE ER 10 MEQ TAB.ER.PRT PO SCH (08:04)
[2018-01-25] MEDS ORDERED: METOPROLOL TARTRATE 50 MG TAB PO SCH (09:00)
[2018-01-25] MEDS ORDERED: NITROGLYCERIN OINT 1 INCH/GM PACKET TOPICAL SCH (09:00)
[2018-01-25] MEDS ORDERED: TORSEMIDE 20 MG TAB PO SCH (09:00)
[2018-01-25] MEDS: BUDESONIDE 0.5 MG/2 ML NEBU INHALATION SCH ×2 (09:06→19:00)
[2018-01-25] MEDS: IPRATROPIUM-ALBUTEROL 3 ML NEB INHALATION PRN ×4 (09:06→23:36)
--- NOTE | 2018-01-25 10:10 | P.CRDCN ---
History of Present Illness Consult date: 01/25/18 Requesting physician: Bud Allred Consult reason: congestive heart failure Chief complaint: Shortness of breath History of present illness: This is a 60-year-old female with morbid obesity, chronic persistent atrial fibrillation, chronic peripheral edema with venous stasis prior history of smoking, COPD, renal insufficiency, hypertension, nondiabetic. She presents to the hospital on this occasion with symptoms of progressively worsening shortness of breath. Patient chronically does have issues with difficulty in breathing, however she states that this was worse than her usual. Patient since July 2017 has had multiple hospital admissions, she was active [facility], transferred to rehab, for rehab, she went to [facility], from there was transferred back to a rehab, she states she was just discharged from the rehab yesterday. She presents to the hospital with shortness of breath , states that she is also extremely weak to the point where she cannot ambulate. He states that she feels she'll likely need to be permanently in an extended care facility. EKG on arrival here showed atrial fibrillation with a rapid ventricular response and the patient was initiated on IV Cardizem in the emergency room. She did have an echocardiogram with Doppler study performed in July 2017 revealed an ejection fraction of 55-60%. Chest x-ray on admission here revealed mild heart failure without change as compared with prior exam. Blood pressure on arrival here 157/86, heart rate 130s, 83% on room air. Temperature 97.0. White blood cell count 11.9, hemoglobin 11.1, platelet count 238. Sodium 141, potassium 4.5, BUN 35, creatinine 1.2. Troponins negative 2 , BNP level 2640. Patient was initiated on IV Lasix in the emergency room along with steroids. She has diuresed and continues to diurese a significant amount from the Lasix. At the time of my examination this morning, she does state that her breathing is here continues to feel extremely weak. Her heart rate this morning is in the low 100s, she continues to be on a Cardizem drip 5 mg per hour. Past Medical History Past Medical History: Atrial Fibrillation, Asthma, Heart Failure, COPD, GI Bleed , Hypertension Additional Past Medical History / Comment(s): clinical impression acute diverticulitis, cellulitis ll extremitis. 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 Past Psychological History: No Psychological Hx Reported Additional Psychological History / Comment(s): pt lives with daughter, gets around by using cane,denies falls and stated gets no outside sevices. Stopped smoking in 2013. No alcohol use. Disabled. No experience. No international travel. No animal exposures Smoking Status: Former smoker Past Alcohol Use History: None Reported Additional Past Alcohol Use History / Comment(s): used to smoke 1 ppd, quit 2013 Past Drug Use History: None Reported - Past Family History Father Family Medical History: Eye Disorder, Osteoarthritis (OA) Additional Family Medical History / Comment(s): at age 92 from old age, had macular degeneration Mother Family Medical History: Coronary Artery Disease (CAD), Diabetes Mellitus, Hypertension, Renal Disease Additional Family Medical History / Comment(s): cabg, dialysis Medications and Allergies Home Medications Medication Instructions Recorded Confirmed Type Apixaban [Eliquis] 5 mg PO BID tab 03/16/17 01/24/18 Rx Ipratropium-Albuterol Nebulize 3 ml INHALATION RT-QID PRN 07/19/17 01/24/18 History [Duoneb 0.5 mg-3 mg/3 ml Soln] Acetylcysteine Solution 20% 1 vial INHALATION Q12HR PRN 01/24/18 01/24/18 History Budesonide [Pulmicort] 0.5 mg INHALATION RT-BID 01/24/18 01/24/18 History Furosemide [Lasix] 20 mg PO DAILY 01/24/18 01/24/18 History Furosemide [Lasix] 20 mg PO Q48H 01/24/18 01/24/18 History Metoprolol Tartrate [Lopressor] 50 mg PO BID 01/24/18 01/24/18 History Miconazole Nitrate [Miconazole 1 applic TOPICAL Q8H PRN 01/24/18 01/24/18 History Nitrate 2%] Potassium Chloride ER [K-Dur 10] 10 meq PO DAILY 01/24/18 01/24/18 History SILVER sulfADIAZINE CREAM 1 applic TOPICAL DAILY 01/24/18 01/24/18 History [Silvadene Cream] Spironolactone [Aldactone] 25 mg PO DAILY 01/24/18 01/24/18 History Torsemide [Demadex] 20 mg PO DAILY 01/24/18 01/24/18 History Allergies Allergy/AdvReac Type Severity Reaction Status Date / Time No Known Allergies Allergy Verified 01/24/18 19:44 Physical Exam Vitals: Vital Signs Temp Pulse Pulse Resp BP BP Pulse Ox 01/25/18 09:18 100 01/25/18 09:06 100 92 L 01/25/18 07:45 97.3 F L 108 H 18 115/73 92 L 01/25/18 04:00 97.2 F L 113 H 18 108/62 93 L 01/25/18 00:15 97 F L 125 H 18 117/55 93 L 01/24/18 23:23 98.1 F 102 H 20 101/60 91 L 01/24/18 22:20 110 H 18 109/76 91 L 01/24/18 20:58 122 H 20 134/78 90 L 01/24/18 20:10 115 H 01/24/18 20:00 107 H 22 145/82 97 01/24/18 19:47 104 H 01/24/18 18:53 97.0 F L 137 H 24 157/86 83 L Intake and Output 01/24/18 01/25/18 01/25/18 22:59 06:59 14:59 Intake Total 58.167 240 Output Total 750 Balance -691.833 240 Intake: Intake, IV Titration 58.167 Amount Diltiazem 50 mg In Sodium 58.167 Chloride 0.9% 40 ml @ 5 MG/HR 5 mls/hr IV .Q10H ONE Rx#:[id number] Oral 240 Output: Urine 750 Other: Voiding Method Indwelling Catheter Indwelling Catheter Weight 188.241 kg 174 kg PHYSICAL EXAMINATION: This is a 68-year-old female, alert, oriented, in no apparent distress. Morbidly obese. HEENT: Head is atraumatic, normocephalic. Pupils equal, round. Neck is supple. There is no elevated jugular venous pressure. HEART EXAMINATION: Heart S1 and S2 irregularly irregular CHEST EXAMINATION: Lungs reveal diminished air entry to bilateral bases. ABDOMEN: Soft, obese, nontender. EXTREMITIES:[1+ peripheral pulses with significant bilateral peripheral edema, erythema and chronic skin changes noted bilaterally. NEUROLOGIC [atient is awake, alert and oriented -3.] . Results 01/24/18 20:07 01/24/18 20:07 Cardiac Enzymes 01/24/18 01/24/18 01/25/18 Range/Units 20:07 20:07 05:41 AST 27 (14-36) U/L CK-MB (CK-2) 1.1 1.0 (0.0-2.4) ng/mL Troponin I <0.012 <0.012 (0.000-0.034) ng/mL Coagulation 01/24/18 Range/Units 20:07 PT 10.3 (9.0-12.0) sec APTT 23.4 (22.0-30.0) sec CBC 01/24/18 Range/Units 20:07 WBC 11.9 H (3.8-10.6) k/uL RBC 4.78 (3.80-5.40) m/uL Hgb 11.1 L (11.4-16.0) gm/dL Hct 37.6 (34.0-46.0) % Plt Count 238 (150-450) k/uL Comprehensive Metabolic Panel 01/24/18 Range/Units 20:07 Sodium 141 (137-145) mmol/L Potassium 4.5 (3.5-5.1) mmol/L Chloride 97 L (98-107) mmol/L Carbon Dioxide 33 H (22-30) mmol/L BUN 35 H (7-17) mg/dL Creatinine 1.20 H (0.52-1.04) mg/dL Glucose 88 (74-99) mg/dL Calcium 9.9 (8.4-10.2) mg/dL AST 27 (14-36) U/L ALT 17 (9-52) U/L Alkaline Phosphatase 89 (38-126) U/L Total Protein 6.5 (6.3-8.2) g/dL Albumin 3.4 L (3.5-5.0) g/dL Current Medications Generic Name Dose Route Start Last Admin Trade Name Freq PRN Reason Stop Dose Admin Acetaminophen 650 mg 01/25/18 01:46 01/25/18 02:12 Tylenol Tab PO 650 mg Q6HR PRN Administration Fever and/ or Pain Acetylcysteine 800 mg 01/24/18 22:55 Mucomyst INHALATION Q12HR PRN Shortness Of Breath Albuterol/Ipratropium 3 ml 01/24/18 22:55 01/25/18 09:06 Duoneb 0.5 Mg-3 Mg/3 Ml Soln INHALATION 3 ml RT-QID PRN Administration Shortness Of Breath Apixaban 5 mg 01/25/18 09:00 01/25/18 08:03 Eliquis PO 5 mg BID BARBER Administration Aspirin 325 mg 01/25/18 22:54 Aspirin PO DAILY BARBER Budesonide 0.5 mg 01/25/18 08:00 01/25/18 09:06 Pulmicort INHALATION 0.5 mg RT-BID BARBER Administration Furosemide 40 mg 01/25/18 09:00 01/25/18 08:03 Lasix IV 40 mg Q12HR BARBER Administration Metoprolol Tartrate 50 mg 01/25/18 09:00 01/25/18 08:03 Lopressor PO 50 mg BID BARBER Administration Miconazole Nitrate 1 applic 01/24/18 22:55 Monistat-Derm TOPICAL Q8H PRN Rash Nitroglycerin 1 inch 01/25/18 09:00 01/25/18 08:04 Nitro-Bid Oint TOPICAL 1 inch QID BARBER Administration Potassium Chloride 10 meq 01/25/18 09:00 01/25/18 08:04 K-Dur 10 PO 10 meq DAILY BARBER Administration Silver Sulfadiazine 1 applic 01/25/18 09:00 01/25/18 08:04 Silvadene Cream TOPICAL Not Given DAILY BARBER Spironolactone 25 mg 01/25/18 09:00 01/25/18 08:04 Aldactone PO 25 mg DAILY BARBER Administration Torsemide 20 mg 01/25/18 09:00 01/25/18 08:05 Demadex PO Not Given DAILY BARBER Intake and Output 01/24/18 01/25/18 01/25/18 22:59 06:59 14:59 Intake Total 58.167 240 Output Total 750 Balance -691.833 240 Intake: Intake, IV Titration 58.167 Amount Diltiazem 50 mg In Sodium 58.167 Chloride 0.9% 40 ml @ 5 MG/HR 5 mls/hr IV .Q10H ONE Rx#:[id number] Oral 240 Output: Urine 750 Other: Voiding Method Indwelling Catheter Indwelling Catheter Weight 188.241 kg 174 kg 01/24/18 20:07 01/24/18 20:07 EKG Interpretations (text) EKG shows atrial fibrillation with a rapid ventricular response Assessment and Plan Plan: Assessment and plan #1 symptoms of progressively worsening shortness of breath, likely combination of diastolic congestive heart failure and COPD exacerbation. #2 atrial fibrillation with rapid ventricular response, patient has chronic persistent atrial fibrillation on Eliquis for anticoagulation #3 morbid obesity #4 severe bilateral cellulitis, chronic #5 acute on chronic renal insufficiency #6 hypertension #7 prior history of smoking #8 COPD Plan We will continue current dose of IV Lasix. Obtain echocardiogram with Doppler study. Discontinue aspirin. Increase beta donna to 50 mg 3 times a day and discontinue Cardizem drip. Request social work evaluation for a long-term care. Nitropaste. Continue Eliquis 5 mg by mouth twice a day. Further recommendations to follow. DNP note has been reviewed, I agree with a documented findings and plan of care. Patient was seen and examined.
[2018-01-25 12:29] LABS: Troponin I <0.012 ng/mL (0.000-0.034)
--- NOTE | 2018-01-25 13:19 | P.CNPUL ---
History of Present Illness Consult date: 01/25/18 Requesting physician: Bud Allred Reason for consult: dyspnea Chief complaint: Shortness of breath, hypoxia History of present illness: This is a very pleasant 67-year-old female patient who follows with Dr. Agee and has a known history of atrial fibrillation anticoagulated with Eliquis, congestive heart failure, GI bleed, hypertension, diverticulitis, cellulitis of the lower extremities. She is morbidly obese. She also has a history of oxygen dependent chronic obstructive pulmonary disease and follows in our office for the same. She is a former smoker but quit back in 2013. She is maintained on Advair and DuoNeb inhalations. She was last seen by our group in February 2017. She resides in [place]. Since that time she has had quite a complicated course. She was admitted to [facility] in the fall and subsequently to [facility] in [facility] and then developed a significant decubitus ulcer with sepsis and was in [facility] for approximately 11 days. She [facility] there [facility] then [facility] rehabilitation. In October 2017 she was back in [facility] with acute hypoxic respiratory failure requiring intubation mechanical ventilatory support. She states she also had undergone bronchoscopy and was positive for MRSA and RSV. She also had issues with C. difficile colitis. After an extended stay that time she was again at [facility] for 100 days and was discharged yesterday. She was home for approximately 2 hours and then developed increasing shortness of breath and decreased O2 saturations on her oximeter. She requested to be brought here to [facility] for ongoing care. She presented to the emergency room yesterday after feeling short of breath over the past several days. She had noted her O2 saturations to be dropping into the 80s despite increasing her oxygen from 2 L to 4 L. Chest x-ray revealed some mild pulmonary vascular congestion. White count 11.9. Hemoglobin 11.1. Creatinine 1.20. Troponins are negative 3. ProBNP 2640. Presently, she is sitting up at the bedside. She is awake and alert in no acute distress. She denies any worsening shortness of breath, cough or congestion. No chills or night sweats. Maintain O2 saturations in the 90s on 6 L high flow nasal cannula. She's afebrile. Hemodynamically stable. Review of Systems Constitutional: Reports fatigue, Reports weakness Eyes: denies blurred vision, denies decreased vision Ears: deny: decreased hearing Ears, nose, mouth and throat: Denies headache, Denies sore throat Cardiovascular: Reports decreased exercise tolerance, Reports dyspnea on exertion, Reports irregular heart beat, Reports leg edema, Reports shortness of breath Respiratory: Reports cough, Reports dyspnea, Reports home oxygen Gastrointestinal: Denies abdominal pain, Denies diarrhea, Denies nausea, Denies vomiting Genitourinary: Denies dysuria, Denies hematuria Musculoskeletal: Reports morning stiffness Musculoskeletal: bilateral: ankle swelling, foot swelling Integumentary: Denies pruritus, Denies rash Neurological: Denies numbness, Denies weakness Psychiatric: Denies anxiety, Denies depression Endocrine: Denies fatigue, Denies weight change Past Medical History Past Medical History: Atrial Fibrillation, Asthma, Heart Failure, COPD, GI Bleed , Hypertension Additional Past Medical History / Comment(s): clinical impression acute diverticulitis, cellulitis ll extremitis. 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 Past Psychological History: No Psychological Hx Reported Additional Psychological History / Comment(s): pt lives with daughter, gets around by using cane,denies falls and stated gets no outside sevices. Stopped smoking in 2013. No alcohol use. Disabled. No experience. No international travel. No animal exposures Smoking Status: Former smoker Past Alcohol Use History: None Reported Additional Past Alcohol Use History / Comment(s): used to smoke 1 , quit 2013 Past Drug Use History: None Reported - Past Family History Father Family Medical History: Eye Disorder, Osteoarthritis (OA) Additional Family Medical History / Comment(s): at age 92 from old age, had macular degeneration Mother Family Medical History: Coronary Artery Disease (CAD), Diabetes Mellitus, Hypertension, Renal Disease Additional Family Medical History / Comment(s): cabg, dialysis Medications and Allergies Home Medications Medication Instructions Recorded Confirmed Type Apixaban [Eliquis] 5 mg PO BID tab 03/16/17 01/24/18 Rx Ipratropium-Albuterol Nebulize 3 ml INHALATION RT-QID PRN 07/19/17 01/24/18 History [Duoneb 0.5 mg-3 mg/3 ml Soln] Acetylcysteine Solution 20% 1 vial INHALATION Q12HR PRN 01/24/18 01/24/18 History Budesonide [Pulmicort] 0.5 mg INHALATION RT-BID 01/24/18 01/24/18 History Furosemide [Lasix] 20 mg PO DAILY 01/24/18 01/24/18 History Furosemide [Lasix] 20 mg PO Q48H 01/24/18 01/24/18 History Metoprolol Tartrate [Lopressor] 50 mg PO BID 01/24/18 01/24/18 History Miconazole Nitrate [Miconazole 1 applic TOPICAL Q8H PRN 01/24/18 01/24/18 History Nitrate 2%] Potassium Chloride ER [K-Dur 10] 10 meq PO DAILY 01/24/18 01/24/18 History SILVER sulfADIAZINE CREAM 1 applic TOPICAL DAILY 01/24/18 01/24/18 History [Silvadene Cream] Spironolactone [Aldactone] 25 mg PO DAILY 01/24/18 01/24/18 History Torsemide [Demadex] 20 mg PO DAILY 01/24/18 01/24/18 History Allergies Allergy/AdvReac Type Severity Reaction Status Date / Time No Known Allergies Allergy Verified 01/24/18 19:44 Physical Exam Vitals: Vital Signs Temp Pulse Pulse Resp BP BP Pulse Ox 01/25/18 12:15 108 H 01/25/18 12:04 100 01/25/18 11:30 97.3 F L 107 H 18 110/68 92 L 01/25/18 09:18 100 01/25/18 09:06 100 92 L 01/25/18 07:45 97.3 F L 108 H 18 115/73 92 L 01/25/18 04:00 97.2 F L 113 H 18 108/62 93 L 01/25/18 00:15 97 F L 125 H 18 117/55 93 L 01/24/18 23:23 98.1 F 102 H 20 101/60 91 L 01/24/18 22:20 110 H 18 109/76 91 L 01/24/18 20:58 122 H 20 134/78 90 L 01/24/18 20:10 115 H 01/24/18 20:00 107 H 22 145/82 97 01/24/18 19:47 104 H 01/24/18 18:53 97.0 F L 137 H 24 157/86 83 L Intake and Output 01/24/18 01/25/18 01/25/18 22:59 06:59 14:59 Intake Total 58.167 240 Output Total 750 Balance -691.833 240 Intake: Intake, IV Titration 58.167 Amount Diltiazem 50 mg In Sodium 58.167 Chloride 0.9% 40 ml @ 5 MG/HR 5 mls/hr IV .Q10H ONE Rx#:[id number] Oral 240 Output: Urine 750 Other: Voiding Method Indwelling Catheter Indwelling Catheter Weight 188.241 kg 174 kg 174 kg GENERAL EXAM: Morbidly obese. Alert, comfortable in no apparent distress. HEAD: Normocephalic. EYES: Normal reaction of pupils, equal size. NOSE: Clear with pink turbinates. THROAT: There is crowding of the posterior pharynx. No erythema or exudates. NECK: Short. No masses, no JVD. CHEST: No chest wall deformity. LUNGS: Equal air entry with crackles in the bilateral posterior bases. CVS: S1 and S2 normal with no audible murmur, irregular rhythm. ABDOMEN: Obese, normal bowel sounds, no guarding or rigidity. SPINE: No scoliosis or deformity SKIN: No rashes CENTRAL NERVOUS SYSTEM: No focal deficits, tone is normal in all 4 extremities. EXTREMITIES: Changes of chronic venous stasis. There is 2+ peripheral edema. No clubbing, no cyanosis. Peripheral pulses are intact. Results - Laboratory Findings CBC and BMP: 01/24/18 20:07 01/24/18 20:07 PT/INR, D-dimer PT 10.3 sec (9.0-12.0) 01/24/18 20:07 INR 1.1 (<1.2) 01/24/18 20:07 Abnormal lab findings: Abnormal Labs 01/24/18 01/24/18 01/24/18 20:07 20:07 20:07 WBC 11.9 H Hgb 11.1 L MCV 78.7 L MCH 23.1 L MCHC 29.4 L RDW 18.6 H Neutrophils # 9.0 H Chloride 97 L Carbon Dioxide 33 H BUN 35 H Creatinine 1.20 H Total Creatine Kinase <20 L Albumin 3.4 L - Diagnostic Findings Chest x-ray: image reviewed Assessment and Plan Assessment: Impression: #1 Acute on chronic hypoxic respiratory failure secondary to mild exacerbation of combined systolic and diastolic congestive heart failure. His echocardiogram revealing impaired left ventricular systolic function with estimated ejection fraction 40% and severe pulmonary hypertension. Initiated on Lasix 40 mg IV push every 12 hours. #2 Morbid obesity, suspect obesity/hypoventilation syndrome. #3 History of ventilatory dependent respiratory failure secondary to MRSA. #4 History of C. difficile colitis. #5 Atrial fibrillation, anticoagulated with Eliquis. #6 Hypertension, history of. #7 History of cellulitis of the lower extremities with chronic venous stasis. #8 History of duodenal ulcer with GI bleed. Plan: The patient was seen and evaluated by Dr. Bartlett. Chest x-ray and labs reviewed. Most likely exacerbation of heart failure. Cardiology is consulted as well. Continue with diuretics. Continued bronchodilators. We will continue to follow and make further recommendations based on her clinical status. I, the cosigning physician, performed a history & physical examination of the patient. Lungs sounds with crackles in the bilateral posterior bases.. Maintaining good O2 saturations in the 90s on 6 L/m per nasal cannula. I discussed the assessment and plan of care with my nurse practitioner, Iveth Da Silva. I attest to the above note as dictated by her. Time with Patient: Greater than 30
--- NOTE | 2018-01-25 14:09 | P.HPIM ---
History of Present Illness 67-year-old female with history of atrial fibrillation congestive heart failure with previous ejection fraction of 40% morbid obesity restrictive lung disease sleep apnea and COPD used to be a smoker in the past came in with the comments of shortness of breath it was suspicious patient may be not in exacerbation because of which patient was started on IV Lasix. Patient is presently on 6 L quadrant uses normally 4 L at home patient was discharged on BiPAP at nighttime from [facility]. Patient was a discharged from subacute rehabilitation as today shortly after that patient felt short of breath and came to the hospital patient denied any fever chills denied any local doesn't have any leukocytosis doesn't have any pneumonic process at this point of time patient is feeling better today. Patient will need placement social work is working on a placement. Patient has extensive history in the past Review of Systems REVIEW OF SYSTEMS: CONSTITUTIONAL: No fever, no malaise, no fatigue. HEENT: No recent visual problems or hearing problems. Denied any sore throat. CARDIOVASCULAR: No chest pain, orthopnea, PND, no palpitations, no syncope. PULMONARY: no cough, no hemoptysis. GASTROINTESTINAL: No diarrhea, no nausea, no vomiting, no abdominal pain. Normoactive bowel sounds. NEUROLOGICAL: No headaches, no weakness, no numbness. HEMATOLOGICAL: Denies any bleeding or petechiae. GENITOURINARY: Denies any burning micturition, frequency, or urgency. MUSCULOSKELETAL/RHEUMATOLOGICAL: Denies any joint pain, swelling, or any muscle pain. ENDOCRINE: Denies any polyuria or polydipsia. The rest of the 14-point review of systems is negative. Past Medical History Past Medical History: Atrial Fibrillation, Asthma, Heart Failure, COPD, GI Bleed , Hypertension Additional Past Medical History / Comment(s): clinical impression acute diverticulitis, cellulitis ll extremitis. 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 Past Psychological History: No Psychological Hx Reported Additional Psychological History / Comment(s): pt lives with daughter, gets around by using cane,denies falls and stated gets no outside sevices. Stopped smoking in 2013. No alcohol use. Disabled. No experience. No international travel. No animal exposures Smoking Status: Former smoker Past Alcohol Use History: None Reported Additional Past Alcohol Use History / Comment(s): used to smoke 1 , quit 2013 Past Drug Use History: None Reported - Past Family History Father Family Medical History: Eye Disorder, Osteoarthritis (OA) Additional Family Medical History / Comment(s): at age 92 from old age, had macular degeneration Mother Family Medical History: Coronary Artery Disease (CAD), Diabetes Mellitus, Hypertension, Renal Disease Additional Family Medical History / Comment(s): cabg, dialysis Medications and Allergies Home Medications Medication Instructions Recorded Confirmed Type Apixaban [Eliquis] 5 mg PO BID tab 03/16/17 01/24/18 Rx Ipratropium-Albuterol Nebulize 3 ml INHALATION RT-QID PRN 07/19/17 01/24/18 History [Duoneb 0.5 mg-3 mg/3 ml Soln] Acetylcysteine Solution 20% 1 vial INHALATION Q12HR PRN 01/24/18 01/24/18 History Budesonide [Pulmicort] 0.5 mg INHALATION RT-BID 01/24/18 01/24/18 History Furosemide [Lasix] 20 mg PO DAILY 01/24/18 01/24/18 History Furosemide [Lasix] 20 mg PO Q48H 01/24/18 01/24/18 History Metoprolol Tartrate [Lopressor] 50 mg PO BID 01/24/18 01/24/18 History Miconazole Nitrate [Miconazole 1 applic TOPICAL Q8H PRN 01/24/18 01/24/18 History Nitrate 2%] Potassium Chloride ER [K-Dur 10] 10 meq PO DAILY 01/24/18 01/24/18 History SILVER sulfADIAZINE CREAM 1 applic TOPICAL DAILY 01/24/18 01/24/18 History [Silvadene Cream] Spironolactone [Aldactone] 25 mg PO DAILY 01/24/18 01/24/18 History Torsemide [Demadex] 20 mg PO DAILY 01/24/18 01/24/18 History Allergies Allergy/AdvReac Type Severity Reaction Status Date / Time No Known Allergies Allergy Verified 01/24/18 19:44 Physical Exam Vitals: Vital Signs Temp Pulse Pulse Resp BP BP Pulse Ox 01/25/18 12:15 108 H 01/25/18 12:04 100 01/25/18 11:30 97.3 F L 107 H 18 110/68 92 L 01/25/18 09:18 100 01/25/18 09:06 100 92 L 01/25/18 07:45 97.3 F L 108 H 18 115/73 92 L 01/25/18 04:00 97.2 F L 113 H 18 108/62 93 L 01/25/18 00:15 97 F L 125 H 18 117/55 93 L 01/24/18 23:23 98.1 F 102 H 20 101/60 91 L 01/24/18 22:20 110 H 18 109/76 91 L 01/24/18 20:58 122 H 20 134/78 90 L 01/24/18 20:10 115 H 01/24/18 20:00 107 H 22 145/82 97 01/24/18 19:47 104 H 01/24/18 18:53 97.0 F L 137 H 24 157/86 83 L Intake and Output 01/24/18 01/25/18 01/25/18 22:59 06:59 14:59 Intake Total 58.167 240 Output Total 750 Balance -691.833 240 Intake: Intake, IV Titration 58.167 Amount Diltiazem 50 mg In Sodium 58.167 Chloride 0.9% 40 ml @ 5 MG/HR 5 mls/hr IV .Q10H ONE Rx#:[id number] Oral 240 Output: Urine 750 Other: Voiding Method Indwelling Catheter Indwelling Catheter Weight 188.241 kg 174 kg 174 kg PHYSICAL EXAMINATION: GENERAL: The patient is alert and oriented x3, not in any acute distress. Morbidly obese HEENT: Pupils are round and equally reacting to light. EOMI. No scleral icterus. No conjunctival pallor. Normocephalic, atraumatic. No pharyngeal erythema. No thyromegaly. CARDIOVASCULAR: S1 and S2 present. No murmurs, rubs, or gallops. PULMONARY: Chest is clear to auscultation, no wheezing or crackles. ABDOMEN: Soft, nontender, nondistended, normoactive bowel sounds. No palpable organomegaly. MUSCULOSKELETAL: No joint swelling or deformity. EXTREMITIES: No cyanosis, clubbing, or pedal edema. NEUROLOGICAL: Gross neurological examination did not reveal any focal deficits. SKIN: No rashes. Results CBC & Chem 7: 01/24/18 20:07 01/24/18 20:07 Labs: Abnormal Lab Results - Last 24 Hours (Table) 01/24/18 01/24/18 01/24/18 Range/Units 20:07 20:07 20:07 WBC 11.9 H (3.8-10.6) k/uL Hgb 11.1 L (11.4-16.0) gm/dL MCV 78.7 L (80.0-100.0) fL MCH 23.1 L (25.0-35.0) pg MCHC 29.4 L (31.0-37.0) g/dL RDW 18.6 H (11.5-15.5) % Neutrophils # 9.0 H (1.3-7.7) k/uL Chloride 97 L (98-107) mmol/L Carbon Dioxide 33 H (22-30) mmol/L BUN 35 H (7-17) mg/dL Creatinine 1.20 H (0.52-1.04) mg/dL Total Creatine Kinase <20 L (30-135) U/L Albumin 3.4 L (3.5-5.0) g/dL Thrombosis Risk Factor Assmnt - Choose All That Apply Any of the Below Risk Factors Present?: Yes Each Factor Represents 1 point: Abnormal pulmonary function (COPD), Heart failure (<1month), Medical pt on bed rest, Obesity (BMI >25), Swollen legs ( current) Other Risk Factors: Yes Each Risk Factor Represents 2 Points: Age 61-74 years Thrombosis Risk Factor Assessment Total Risk Factor Score: 7 Thrombosis Risk Factor Assessment Level: High Risk Assessment and Plan Plan: #1 Acute on chronic hypoxic respiratory failure secondary to mild exacerbation of combined systolic and diastolic congestive heart failure. His echocardiogram revealing impaired left ventricular systolic function with estimated ejection fraction 40% and severe pulmonary hypertension. Initiated on Lasix 40 mg IV push every 12 hours. #2 Morbid obesity, suspect obesity/hypoventilation syndrome. #3 congestive heart failure chronic systolic dysfunction with possible acute exacerbation #4 severe restrictive lung disease from morbid obesity and sleep apnea #5 Atrial fibrillation, anticoagulated with Eliquis. Patient heart rate is not well controlled at this is being managed by cardiology. #6 Hypertension, history of. #7 chronic venous stasis of bilateral lower expertise patient the has bilateral lower limb redness and the swelling due to her obesity #8 gastroesophageal reflux disease and history of peptic ulcer disease in the past
[2018-01-25] MEDS: METOPROLOL TARTRATE 50 MG TAB PO SCH ×2 (16:35→21:36)
--- NOTE | 2018-01-25 18:42 | ECHOF ---
Referral Reason:Heart Failure MEASUREMENTS -------- HEIGHT: 162.6 cm WEIGHT: 173.7 kg BP: 108/62 RVIDd: 4.2 cm (< 3.3) IVSd: 1.4 cm (0.6 - 1.1) LVIDd: 4.5 cm (3.9 - 5.3) LVPWd: 1.5 cm (0.6 - 1.1) IVSs: 1.7 cm LVIDs: 3.0 cm LVPWs: 1.8 cm LA Diam: 4.5 cm (2.7 - 3.8) Ao Diam: 3.3 cm (2.0 - 3.7) AV Cusp: 1.8 cm (1.5 - 2.6) LA Diam: 4.8 cm (2.7 - 3.8) RAP: 5.00 mmHg RVSP: 33.92 mmHg FINDINGS -------- Sinus rhythm. This was a technically difficult study with suboptimal views. The left ventricular size is normal. There is moderate concentric left ventricular hypertrophy. O verall left ventricular systolic function is normal with, an EF between 55 - 60 %. The right ventricle is moderately enlarged. The left atrium is moderately dilated. The right atrium was not well visualized. 3ml of Lumason was utilized for enhancement of images. Aortic valve is trileaflet and is mildly thickened. There is no evidence of aortic regurgitation. There is no evidence of aortic stenosis. The mitral valve leaflets are mildly thickened. Mild mitral regurgitation is present. The tricuspid valve was not well visualized. Mild tricuspid regurgitation present. There is borde rline pulmonary hypertension. The right ventricular systolic pressure, as measured by Doppler, is 3 3.92mmHg. The pulmonic valve was not well visualized. The aortic root is borderline dilated up to 3.6 cm. IVC Not well visulized. There is no pericardial effusion. CONCLUSIONS -------- 1. Sinus rhythm. 2. This was a technically difficult study with suboptimal views. 3. The left ventricular size is normal. 4. There is moderate concentric left ventricular hypertrophy. 5. Overall left ventricular systolic function is normal with, an EF between 55 - 60 %. 6. The right ventricle is moderately enlarged. 7. The left atrium is moderately dilated. 8. The right atrium was not well visualized. 9. 3ml of Lumason was utilized for enhancement of images. 10. Aortic valve is trileaflet and is mildly thickened. 11. The mitral valve leaflets are mildly thickened. 12. Mild mitral regurgitation is present. 13. The tricuspid valve was not well visualized. 14. Mild tricuspid regurgitation present. 15. There is borderline pulmonary hypertension. 16. The right ventricular systolic pressure, as measured by Doppler, is 33.92mmHg. 17. The pulmonic valve was not well visualized. 18. The aortic root is borderline dilated up to 3.6 cm. 19. IVC Not well visulized. 20. There is no pericardial effusion. EDUCATION MANAGER: Jhonny Hassan RDCS
[2018-01-25] MEDS ORDERED: ASPIRIN 325 MG TAB PO SCH (22:54)
[2018-01-26] MEDS: BUDESONIDE 0.5 MG/2 ML NEBU INHALATION SCH ×2 (07:17→20:05)
[2018-01-26] MEDS: IPRATROPIUM-ALBUTEROL 3 ML NEB INHALATION PRN ×4 (07:17→20:05)
--- NOTE | 2018-01-26 10:29 | P.PN ---
Subjective Progress Note Date: 01/26/18 Principal diagnosis: CHF This is a 68-year-old female patient with a past medical history significant for CHF related to diastolic dysfunction, chronic persistent atrial fibrillation, morbid obesity, and multiple comorbid conditions, was admitted to the hospital yesterday with acute on chronic respiratory failure secondary to CHF and COPD exacerbation. The patient continues to be in A. fib with uncontrolled heart rate. I am going to increase the dose of metoprolol 200 mg by mouth twice a day. She continues to be on Lasix IV. Beside that she continues to be on IV Lasix at this point. She stated that the shortness of breath is slightly better today. Objective - Vital Signs Vital signs: Vital Signs Temp 97.0 F L 01/26/18 04:00 Pulse 108 H 01/26/18 07:28 Resp 22 01/26/18 04:00 BP 133/69 01/26/18 04:00 Pulse Ox 94 L 01/26/18 04:00 Intake & Output 01/25/18 01/26/18 01/26/18 18:59 06:59 18:59 Intake Total 714 720 280 Output Total 1000 2600 Balance -286 -1880 280 Weight 174 kg 186.5 kg Intake: Oral 714 720 280 Output: Urine 1000 2600 Other: Voiding Method Indwelling Catheter Indwelling Catheter - Constitutional General appearance: Present: no acute distress - Respiratory Respiratory: bilateral: diminished - Cardiovascular Rhythm: regular Heart sounds: normal: S1, S2 - Labs CBC & Chem 7: 01/24/18 20:07 01/24/18 20:07 Labs: Microbiology - Last 24 Hours (Table) 01/24/18 20:07 Blood Culture - Preliminary Blood No Growth after 24 hours Assessment and Plan Assessment: Assessment #1 acute on chronic respiratory failure #2 congestive heart failure exacerbation secondary to diastolic dysfunction #3 atrial fibrillation with uncontrolled heart rate #4 morbid obesity #5 multiple comorbid conditions Plan #1 continue the current dose of Lasix IV #2 increase the dose of metoprolol for better heart rate control #3 continue oral anticoagulation #4 follow-up with the patient.
[2018-01-26] MEDS: SPIRONOLACTONE 25 MG TAB PO SCH (10:45)
[2018-01-26] MEDS: APIXABAN 5 MG TAB PO SCH ×2 (10:45→20:43)
[2018-01-26] MEDS: POTASSIUM CHLORIDE ER 10 MEQ TAB.ER.PRT PO SCH (10:45)
[2018-01-26] MEDS: FUROSEMIDE 10 MG/ML 4 ML VIAL IV SCH ×2 (10:45→20:43)
[2018-01-26] MEDS: METOPROLOL TARTRATE 50 MG TAB PO SCH ×3 (10:45→20:43)
[2018-01-26 11:54] LABS: Calcium 9.9 mg/dL (8.4-10.2); Potassium 4.5 mmol/L (3.5-5.1)
--- NOTE | 2018-01-26 14:01 | P.PN ---
Subjective Progress Note Date: 01/26/18 Principal diagnosis: CHF Progress note dated 01/26/2018 This is a 68-year-old female seen yesterday in consultation for CHF/heart failure. She does have a history of chronic hypoxemic respiratory failure secondary to systolic and diastolic CHF. In addition, she suffers some severe pulmonary hypertension severe morbid obesity with pickwickian syndrome, ventilator dependent respiratory failure secondary to MRSA infection, C. difficile colitis chronic atrial fibrillation essential hypertension extremities cellulitis and duodenal ulcer. The patient seemed be doing relatively well today. She is on oxygen therapy. She does feel better. She is likely to be discharged to a specialized nursing facility although she does not know which one as yet. She is morbidly obese and does not ambulate particularly well. She discussed significant lower extremity edema and some chronic venous stasis changes in the lower extremities. Objective - Vital Signs Vital signs: Vital Signs Temp 96.8 F L 01/26/18 08:00 Pulse 112 H 01/26/18 11:38 Resp 22 01/26/18 04:00 BP 105/63 01/26/18 08:00 Pulse Ox 93 L 01/26/18 08:00 Intake & Output 01/25/18 01/26/18 01/26/18 18:59 06:59 18:59 Intake Total 714 720 280 Output Total 1000 2600 Balance -286 -1880 280 Weight 174 kg 186.5 kg Intake: Oral 714 720 280 Output: Urine 1000 2600 Other: Voiding Method Indwelling Catheter Indwelling Catheter - Exam No acute distress, oriented 3. Nasal O2 in place. HEENT examination is grossly unremarkable. Mucous membranes are moist. No oral lesions. Neck supple. Full range of motion. No adenopathy thyromegaly or neck vein distention. Cardiovascular examination reveals irregular rhythm and rate. S1-S2 normal. No S3 or S4. No discernible murmur noted. Lungs reveal diminished breath sounds throughout. This some bibasilar crackles. No wheezes. No rhonchi. Breath sounds are equal bilaterally. Abdomen soft bowel sounds are heard. No masses or tenderness. Extremities are intact. There is chronic venous stasis changes to the lower extremities with some mild erythema. There is brawny edema to the lower extremities as well. Skin is without rash or lesion. Neurologic examination is brief but nonfocal. - Labs CBC & Chem 7: 01/24/18 20:07 01/26/18 11:21 Labs: Abnormal Lab Results - Last 24 Hours (Table) 01/26/18 Range/Units 11:21 Chloride 95 L (98-107) mmol/L Carbon Dioxide 32 H (22-30) mmol/L BUN 43 H (7-17) mg/dL Creatinine 1.15 H (0.52-1.04) mg/dL Microbiology - Last 24 Hours (Table) 01/24/18 20:07 Blood Culture - Preliminary Blood No Growth after 24 hours Assessment and Plan Assessment: Assessment Acute on chronic hypoxemic respiratory failure, secondary to combined systolic/ diastolic heart failure History of severe pulmonary hypertension Morbid obesity, with suspected pickwickian syndrome Ventilator-dependent respiratory failure, secondary to MRSA infection, resolved History of C. difficile colitis Chronic atrial fibrillation Benign essential hypertension History of lower extremities cellulitis and edema History of duodenal ulcer Plan: Plan dated 01/26/2018 The patient is a bit better today than yesterday. She tells me that the plan is to discharge her to a specialized nursing facility. She hopes to be discharged to one close to home. She resides in [place]. She is feeling better. Patient states that she her breathing is still quite severe when she exerts herself. Her lower extremity edema is about the same. Chest x-ray labs and medications are all reviewed. Time with Patient: Less than 30
--- NOTE | 2018-01-26 14:34 | P.PN ---
Subjective 67-year-old female is being treated for congestive heart failure exacerbation patient is feeling much better today patient creatinine actually improved with IV Lasix patient is being continued on IV Lasix today switched to oral Lasix tomorrow we are also working on placement for her. Is again 4 L and patient uses 4 L at home. Constitutional: Denied any fatigue denied any fever. Cardio vascular: denied any chest pain, palpitations Gastrointestinal denied any nausea vomiting Pulmonary: Denied any shortness of breath cough Neurologic denied any new focal deficits Objective - Vital Signs Vital signs: Vital Signs Temp 96.8 F L 01/26/18 08:00 Pulse 112 H 01/26/18 11:38 Resp 22 01/26/18 04:00 BP 105/63 01/26/18 08:00 Pulse Ox 93 L 01/26/18 08:00 Intake & Output 01/25/18 01/26/18 01/26/18 18:59 06:59 18:59 Intake Total 714 720 280 Output Total 1000 2600 Balance -286 -1880 280 Weight 174 kg 186.5 kg Intake: Oral 714 720 280 Output: Urine 1000 2600 Other: Voiding Method Indwelling Catheter Indwelling Catheter - Exam PHYSICAL EXAMINATION: GENERAL: The patient is alert and oriented x3, not in any acute distress. Morbidly obese HEENT: Pupils are round and equally reacting to light. EOMI. No scleral icterus. No conjunctival pallor. Normocephalic, atraumatic. No pharyngeal erythema. No thyromegaly. CARDIOVASCULAR: S1 and S2 present. No murmurs, rubs, or gallops. PULMONARY: Chest is clear to auscultation, no wheezing or crackles. ABDOMEN: Soft, nontender, nondistended, normoactive bowel sounds. No palpable organomegaly. MUSCULOSKELETAL: No joint swelling or deformity. EXTREMITIES: No cyanosis, clubbing, or pedal edema. NEUROLOGICAL: Gross neurological examination did not reveal any focal deficits. SKIN: No rashes. - Labs CBC & Chem 7: 01/24/18 20:07 01/26/18 11:21 Labs: Abnormal Lab Results - Last 24 Hours (Table) 01/26/18 Range/Units 11:21 Chloride 95 L (98-107) mmol/L Carbon Dioxide 32 H (22-30) mmol/L BUN 43 H (7-17) mg/dL Creatinine 1.15 H (0.52-1.04) mg/dL Microbiology - Last 24 Hours (Table) 01/24/18 20:07 Blood Culture - Preliminary Blood No Growth after 24 hours Assessment and Plan Plan: #1 Acute on chronic hypoxic respiratory failure secondary to mild exacerbation of combined systolic and diastolic congestive heart failure. His echocardiogram revealing impaired left ventricular systolic function with estimated ejection fraction 40% and severe pulmonary hypertension. on Lasix 40 mg IV push every 12 hours. Continue with IV Lasix today possibly of discharge tomorrow if you are not able to place her tomorrow on oral Lasix #2 Morbid obesity, suspect obesity/hypoventilation syndrome. #3 congestive heart failure chronic systolic dysfunction with possible acute exacerbation #4 severe restrictive lung disease from morbid obesity and sleep apnea #5 Atrial fibrillation, anticoagulated with Eliquis. Patient heart rate is not well controlled at this is being managed by cardiology. #6 Hypertension, history of. #7 chronic venous stasis of bilateral lower expertise patient the has bilateral lower limb redness and the swelling due to her obesity #8 gastroesophageal reflux disease and history of peptic ulcer disease in the past
[2018-01-27 06:06] LABS: Calcium 9.6 mg/dL (8.4-10.2); Potassium 4.4 mmol/L (3.5-5.1)
[2018-01-27 06:10] LABS: Anisocytosis Slight; Basophils % (A) 1 %; Eosinophils # (A) 0.1 k/uL (0-0.7); Eosinophils % (A) 1 %; HGB 10.9 gm/dL (11.4-16.0); Hypochromasia Marked; Lymphocytes # (A) 1.9 k/uL (1.0-4.8); Lymphocytes % (A) 22 %; MCH 23.1 pg (25.0-35.0); MCHC 29.4 g/dL (31.0-37.0); MCV 78.6 fL (80.0-100.0); Mean Platelet Volume 9.7; Microcytosis Slight; Monocytes # (A) 0.6 k/uL (0-1.0); Monocytes % (A) 8 %; Neutrophils # (A) 5.6 k/uL (1.3-7.7); Neutrophils % (A) 65 %; Platelet Count 229 k/uL (150-450); RBC 4.71 m/uL (3.80-5.40); RDW 18.6 % (11.5-15.5); WBC 8.5 k/uL (3.8-10.6)
[2018-01-27] MEDS: IPRATROPIUM-ALBUTEROL 3 ML NEB INHALATION PRN ×4 (07:51→20:15)
[2018-01-27] MEDS: BUDESONIDE 0.5 MG/2 ML NEBU INHALATION SCH ×2 (07:51→20:14)
[2018-01-27] MEDS: FUROSEMIDE 10 MG/ML 4 ML VIAL IV SCH (09:39)
[2018-01-27] MEDS: APIXABAN 5 MG TAB PO SCH ×2 (09:39→22:09)
[2018-01-27] MEDS: METOPROLOL TARTRATE 50 MG TAB PO SCH ×2 (09:39→22:09)
[2018-01-27] MEDS: SPIRONOLACTONE 25 MG TAB PO SCH (09:40)
[2018-01-27] MEDS: POTASSIUM CHLORIDE ER 10 MEQ TAB.ER.PRT PO SCH (09:40)
--- NOTE | 2018-01-27 13:07 | P.PN ---
Subjective Progress Note Date: 01/27/18 Principal diagnosis: CHF This is a 68-year-old female patient with a past medical history significant for CHF related to diastolic dysfunction, chronic persistent atrial fibrillation, morbid obesity, and multiple comorbid conditions, was admitted to the hospital yesterday with acute on chronic respiratory failure secondary to CHF and COPD exacerbation. The patient continues to be in A. fib with uncontrolled heart rate. Shortness of breath is better. She continues to have bilateral lower extremities edema. I am going to add Cardizem by mouth to the current medical treatment in addition to the metoprolol. Continue monitor the heart rate and blood pressure as well. Objective - Vital Signs Vital signs: Vital Signs Temp 97.2 F L 01/27/18 08:00 Pulse 112 H 01/27/18 12:32 Resp 20 01/27/18 04:00 BP 124/76 01/27/18 08:00 Pulse Ox 92 L 01/27/18 08:00 Intake & Output 01/26/18 01/27/18 01/27/18 18:59 06:59 18:59 Intake Total 1210 640 240 Output Total 650 2200 Balance 560 -1560 240 Weight 169.5 kg Intake: Oral 1210 640 240 Output: Urine 650 2200 Other: Voiding Method Indwelling Catheter # Bowel Movements 0 - Constitutional General appearance: Present: no acute distress - Respiratory Respiratory: bilateral: CTA - Cardiovascular Rhythm: irregularly irregular Heart sounds: normal: S1, S2 - Labs CBC & Chem 7: 01/27/18 05:43 01/27/18 05:43 Labs: Abnormal Lab Results - Last 24 Hours (Table) 01/27/18 01/27/18 Range/Units 05:43 05:43 Hgb 10.9 L (11.4-16.0) gm/dL MCV 78.6 L (80.0-100.0) fL MCH 23.1 L (25.0-35.0) pg MCHC 29.4 L (31.0-37.0) g/dL RDW 18.6 H (11.5-15.5) % Chloride 94 L (98-107) mmol/L Carbon Dioxide 35 H (22-30) mmol/L BUN 50 H (7-17) mg/dL Creatinine 1.20 H (0.52-1.04) mg/dL Microbiology - Last 24 Hours (Table) 01/24/18 20:07 Blood Culture Gram Stain - Preliminary Blood Blood Culture - Preliminary Gram Positive Bacilli Isolated 01/24/18 20:07 Blood Culture - Final Blood Assessment and Plan Assessment: Assessment #1 acute on chronic respiratory failure #2 congestive heart failure exacerbation secondary to diastolic dysfunction #3 atrial fibrillation with uncontrolled heart rate #4 morbid obesity #5 multiple comorbid conditions Plan #1 the patient was switched to Lasix by mouth. #2 I will add Cardizem to the current medical treatment #3 continue oral anticoagulation #4 follow-up with the patient.
--- NOTE | 2018-01-27 13:40 | P.PN ---
Subjective 67-year-old female is being treated for congestive heart failure exacerbation patient is feeling much better today patient creatinine actually improved with IV Lasix patient is being continued on IV Lasix today switched to oral Lasix tomorrow we are also working on placement for her. Is again 4 L and patient uses 4 L at home. 01/27/2018 Reason for liters of oxygen does have pedal edema mostly due to venous insufficiency rather than heart failure because of which I am switching Lasix to oral discuss with cardiology, the patient heart rate is well controlled patient can be discharged tomorrow cardiology is increasing the dose of metoprolol Constitutional: Denied any fatigue denied any fever. Cardio vascular: denied any chest pain, palpitations Gastrointestinal denied any nausea vomiting Pulmonary: Denied any shortness of breath cough Neurologic denied any new focal deficits Objective - Vital Signs Vital signs: Vital Signs Temp 97.2 F L 01/27/18 08:00 Pulse 112 H 01/27/18 12:32 Resp 20 01/27/18 04:00 BP 124/76 01/27/18 08:00 Pulse Ox 92 L 01/27/18 08:00 Intake & Output 01/26/18 01/27/18 01/27/18 18:59 06:59 18:59 Intake Total 1210 640 240 Output Total 650 2200 Balance 560 -1560 240 Weight 169.5 kg Intake: Oral 1210 640 240 Output: Urine 650 2200 Other: Voiding Method Indwelling Catheter # Bowel Movements 0 - Exam PHYSICAL EXAMINATION: GENERAL: The patient is alert and oriented x3, not in any acute distress. Morbidly obese HEENT: Pupils are round and equally reacting to light. EOMI. No scleral icterus. No conjunctival pallor. Normocephalic, atraumatic. No pharyngeal erythema. No thyromegaly. CARDIOVASCULAR: S1 and S2 present. No murmurs, rubs, or gallops. PULMONARY: Chest is clear to auscultation, no wheezing or crackles. ABDOMEN: Soft, nontender, nondistended, normoactive bowel sounds. No palpable organomegaly. MUSCULOSKELETAL: No joint swelling or deformity. EXTREMITIES: No cyanosis, clubbing, or pedal edema. NEUROLOGICAL: Gross neurological examination did not reveal any focal deficits. SKIN: No rashes. - Labs CBC & Chem 7: 01/27/18 05:43 01/27/18 05:43 Labs: Abnormal Lab Results - Last 24 Hours (Table) 01/27/18 01/27/18 Range/Units 05:43 05:43 Hgb 10.9 L (11.4-16.0) gm/dL MCV 78.6 L (80.0-100.0) fL MCH 23.1 L (25.0-35.0) pg MCHC 29.4 L (31.0-37.0) g/dL RDW 18.6 H (11.5-15.5) % Chloride 94 L (98-107) mmol/L Carbon Dioxide 35 H (22-30) mmol/L BUN 50 H (7-17) mg/dL Creatinine 1.20 H (0.52-1.04) mg/dL Microbiology - Last 24 Hours (Table) 01/24/18 20:07 Blood Culture Gram Stain - Preliminary Blood Blood Culture - Preliminary Gram Positive Bacilli Isolated 01/24/18 20:07 Blood Culture - Final Blood Assessment and Plan Plan: #1 Acute on chronic hypoxic respiratory failure secondary to mild exacerbation of combined systolic and diastolic congestive heart failure. His echocardiogram revealing impaired left ventricular systolic function with estimated ejection fraction 40% and severe pulmonary hypertension. Patient was switched to oral Lasix patient is to continues to have pedal edema which is due to chronic venous stasis and venous insufficiency #2 Morbid obesity, suspect obesity/hypoventilation syndrome. #3 congestive heart failure chronic systolic dysfunction with possible acute exacerbation #4 severe restrictive lung disease from morbid obesity and sleep apnea #5 Atrial fibrillation, anticoagulated with Eliquis. Patient heart rate is not well controlled at this is being managed by cardiology. #6 Hypertension, history of. #7 chronic venous stasis of bilateral lower expertise patient the has bilateral lower limb redness and the swelling due to her obesity #8 gastroesophageal reflux disease and history of peptic ulcer disease in the past
--- NOTE | 2018-01-27 15:27 | P.PN ---
Subjective Progress Note Date: 01/27/18 Principal diagnosis: Acute on chronic hypoxemic respiratory failure, secondary to combined systolic/ diastolic heart failure This is a 68-year-old female seen yesterday in consultation for CHF/heart failure. She does have a history of chronic hypoxemic respiratory failure secondary to systolic and diastolic CHF. In addition, she suffers some severe pulmonary hypertension severe morbid obesity with pickwickian syndrome, ventilator dependent respiratory failure secondary to MRSA infection, C. difficile colitis chronic atrial fibrillation essential hypertension extremities cellulitis and duodenal ulcer. The patient seemed be doing relatively well today. She is on oxygen therapy. She does feel better. She is likely to be discharged to a specialized nursing facility although she does not know which one as yet. She is morbidly obese and does not ambulate particularly well. She discussed significant lower extremity edema and some chronic venous stasis changes in the lower extremities. On 01/27/2018 patient is seen in follow-up on selective care unit. She is resting in bed, denies any acute distress. She is currently on oral diuretics in the form of Lasix 40 mg by mouth twice daily, she is in -1310 fluid balance over the last 24 hours, she has had 4.5 kg weight loss since admission. Her dyspnea is improving, FiO2 is 4 L, her O2 sat is 92%. She remains in A. fib RVR , with a rate up to 113 BPM, cardiology is working on optimizing rate control. Patient is currently on oral Cardizem and metoprolol 100 mg twice a day. She is on anticoagulation in the form of Eliquis. Yesterday patient did set up at the bedside, and was able to clear some phlegm. Lung sounds are positive for some wheezes, particularly over right posterior lung. Patient still has a lot of edema in bilateral lower extremities, 1+ to 2+ bilateral lower extremity edema. Objective - Vital Signs Vital signs: Vital Signs Temp 97.2 F L 01/27/18 08:00 Pulse 112 H 01/27/18 12:32 Resp 20 01/27/18 04:00 BP 124/76 01/27/18 08:00 Pulse Ox 92 L 01/27/18 08:00 Intake & Output 01/26/18 01/27/18 01/27/18 18:59 06:59 18:59 Intake Total 1210 640 240 Output Total 650 2200 1550 Balance 560 -1560 -1310 Weight 169.5 kg Intake: Oral 1210 640 240 Output: Urine 650 2200 1550 Other: Voiding Method Indwelling Catheter # Bowel Movements 0 0 - Exam GENERAL EXAM: Alert, pleasant, obese 68-year-old white female comfortable in no apparent distress. Currently on 4 L per nasal cannula HEAD: Normocephalic/atraumatic. EYES: Normal reaction of pupils, equal size. Conjunctiva pink, sclera white. NOSE: Clear with pink turbinates. THROAT: No erythema or exudates. NECK: No masses, no JVD, no thyroid enlargement, no adenopathy. CHEST: No chest wall deformity. Symmetrical expansion. LUNGS: Equal air entry with expiratory wheezes over right posterior upper and lower lobe CVS: Regular rate and rhythm, normal S1 and S2, no gallops, no murmurs, no rubs ABDOMEN: Obese, soft, nontender. No hepatosplenomegaly, normal bowel sounds, no guarding or rigidity. EXTREMITIES: No clubbing, no cyanosis, 2+ pulses and upper and lower extremities. She continues to 1+ to 2+ nonpitting edema, there is chronic venous stasis discoloration present in bilateral lower extremities MUSCULOSKELETAL: Muscle strength and tone normal. SPINE: No scoliosis or deformity SKIN: No rashes CENTRAL NERVOUS SYSTEM: Alert and oriented -3. No focal deficits, tone is normal in all 4 extremities. PSYCHIATRIC: Alert and oriented -3. Appropriate affect. Intact judgment and insight. - Labs CBC & Chem 7: 01/27/18 05:43 01/27/18 05:43 Labs: Abnormal Lab Results - Last 24 Hours (Table) 01/27/18 01/27/18 Range/Units 05:43 05:43 Hgb 10.9 L (11.4-16.0) gm/dL MCV 78.6 L (80.0-100.0) fL MCH 23.1 L (25.0-35.0) pg MCHC 29.4 L (31.0-37.0) g/dL RDW 18.6 H (11.5-15.5) % Chloride 94 L (98-107) mmol/L Carbon Dioxide 35 H (22-30) mmol/L BUN 50 H (7-17) mg/dL Creatinine 1.20 H (0.52-1.04) mg/dL Microbiology - Last 24 Hours (Table) 01/24/18 20:07 Blood Culture Gram Stain - Preliminary Blood Blood Culture - Preliminary Gram Positive Bacilli Isolated 01/24/18 20:07 Blood Culture - Final Blood Assessment and Plan Plan: Assessment: Acute on chronic hypoxemic respiratory failure, secondary to combined systolic/ diastolic heart failure History of severe pulmonary hypertension Morbid obesity, with suspected pickwickian syndrome Ventilator-dependent respiratory failure, secondary to MRSA infection, resolved History of C. difficile colitis Chronic atrial fibrillation Benign essential hypertension History of lower extremities cellulitis and edema History of duodenal ulcer Plan: Patient continues to diurese, however still has 2+ nonpitting lower extremity edema. Her weight is down by 4.5 kg since admission. She is maintaining negative fluid balance. Cardiology is working on optimizing patient's rate control, patient remains in A. fib. Her dyspnea is improving, increase activity as tolerated, wean FiO2. Patient is trying to decide whether she can just go home after discharge in the care of her daughter, or long-term care facility after discharge. Patient is out of rehabilitation days under her insurance plan. We'll continue to monitor her progression the next few days and make recommendations accordingly. I performed a history & physical examination of the patient and discussed their management with my nurse practitioner, Maru Meyers. I reviewed the nurse practitioner's note and agree with the documented findings and plan of care. Lung sounds are positive for wheezes over right lung. The findings and the impression was discussed with the patient. I attest to the documentation by the nurse practitioner. Time with Patient: Less than 30
[2018-01-27] MEDS: FUROSEMIDE 40 MG TAB PO SCH (16:39)
[2018-01-27] MEDS: DILTIAZEM ORAL 30 MG TAB PO SCH ×2 (16:39→22:09)
[2018-01-28] MEDS: METOPROLOL TARTRATE 50 MG TAB PO SCH ×2 (08:11→22:14)
[2018-01-28] MEDS: APIXABAN 5 MG TAB PO SCH ×2 (08:11→22:14)
[2018-01-28] MEDS: POTASSIUM CHLORIDE ER 10 MEQ TAB.ER.PRT PO SCH (08:12)
[2018-01-28] MEDS: DILTIAZEM ORAL 30 MG TAB PO SCH (08:12)
[2018-01-28] MEDS: SPIRONOLACTONE 25 MG TAB PO SCH (08:12)
[2018-01-28] MEDS: FUROSEMIDE 40 MG TAB PO SCH ×2 (08:12→15:02)
[2018-01-28] MEDS: BUDESONIDE 0.5 MG/2 ML NEBU INHALATION SCH ×2 (08:31→19:39)
--- NOTE | 2018-01-28 09:36 | P.PN ---
Subjective Progress Note Date: 01/28/18 Principal diagnosis: CHF This is a 68-year-old female patient with a past medical history significant for CHF related to diastolic dysfunction, chronic persistent atrial fibrillation, morbid obesity, and multiple comorbid conditions, was admitted to the hospital yesterday with acute on chronic respiratory failure secondary to CHF and COPD exacerbation. The patient continues to be in A. fib with uncontrolled heart rate. The shortness of breath is better. She continues to have bilateral lower extremities edema. She is on metoprolol at 100 mg by mouth twice a day. Yesterday she was started on Cardizem 30 mg by mouth 3 times a day and I will increase the dose to 60 mg by mouth 3 times a day. Objective - Vital Signs Vital signs: Vital Signs Temp 97.4 F L 01/28/18 08:00 Pulse 119 H 01/28/18 08:48 Resp 17 01/28/18 08:00 BP 108/62 01/28/18 08:00 Pulse Ox 94 L 01/28/18 08:00 Intake & Output 01/27/18 01/28/18 01/28/18 18:59 06:59 18:59 Intake Total 480 480 Output Total 1999 1725 Balance -1520 -1725 480 Weight 173 kg Intake: Oral 480 480 Output: Urine 1999 1725 Other: Voiding Method Indwelling Catheter Indwelling Catheter # Bowel Movements 0 - Constitutional General appearance: Present: no acute distress - Respiratory Respiratory: bilateral: diminished - Cardiovascular Rhythm: irregularly irregular - Labs CBC & Chem 7: 01/27/18 05:43 01/27/18 05:43 Labs: Microbiology - Last 24 Hours (Table) 01/24/18 20:07 Blood Culture Gram Stain - Preliminary Blood Blood Culture - Preliminary Gram Positive Bacilli Isolated Assessment and Plan Assessment: Assessment #1 acute on chronic respiratory failure #2 congestive heart failure exacerbation secondary to diastolic dysfunction #3 atrial fibrillation with uncontrolled heart rate #4 morbid obesity #5 multiple comorbid conditions Plan #1 continue the current dose of metoprolol. #2 increase the dose of Cardizem by mouth #3 follow-up with the patient.
[2018-01-28] MEDS ORDERED: DILTIAZEM ORAL 30 MG TAB PO ONE (09:45)
[2018-01-28 11:38] LABS: Calcium 9.6 mg/dL (8.4-10.2); Potassium 4.4 mmol/L (3.5-5.1)
[2018-01-28] MEDS: IPRATROPIUM-ALBUTEROL 3 ML NEB INHALATION PRN ×3 (12:09→19:39)
--- NOTE | 2018-01-28 12:27 | P.PN ---
Subjective 67-year-old female is being treated for congestive heart failure exacerbation patient is feeling much better today patient creatinine actually improved with IV Lasix patient is being continued on IV Lasix today switched to oral Lasix tomorrow we are also working on placement for her. Is again 4 L and patient uses 4 L at home. 01/27/2018 Reason for liters of oxygen does have pedal edema mostly due to venous insufficiency rather than heart failure because of which I am switching Lasix to oral discuss with cardiology, the patient heart rate is well controlled patient can be discharged tomorrow cardiology is increasing the dose of metoprolol 01/28/2018 Patient is still tachycardic increasing the dose of Cardizem will continue to monitor and possibility of discharge tomorrow home tomorrow if her heart rate is controlled Constitutional: Denied any fatigue denied any fever. Cardio vascular: denied any chest pain, palpitations Gastrointestinal denied any nausea vomiting Pulmonary: Denied any shortness of breath cough Neurologic denied any new focal deficits Objective - Vital Signs Vital signs: Vital Signs Temp 97.4 F L 01/28/18 08:00 Pulse 110 H 01/28/18 12:18 Resp 17 01/28/18 11:35 BP 108/62 01/28/18 08:00 Pulse Ox 94 L 01/28/18 08:00 Intake & Output 01/27/18 01/28/18 01/28/18 18:59 06:59 18:59 Intake Total 480 480 Output Total 1999 2724 Balance -1520 -2727 480 Weight 173 kg Intake: Oral 480 480 Output: Urine 1999 2724 Other: Voiding Method Indwelling Catheter Indwelling Catheter # Bowel Movements 0 - Exam PHYSICAL EXAMINATION: GENERAL: The patient is alert and oriented x3, not in any acute distress. Morbidly obese HEENT: Pupils are round and equally reacting to light. EOMI. No scleral icterus. No conjunctival pallor. Normocephalic, atraumatic. No pharyngeal erythema. No thyromegaly. CARDIOVASCULAR: S1 and S2 present. No murmurs, rubs, or gallops. PULMONARY: Chest is clear to auscultation, no wheezing or crackles. ABDOMEN: Soft, nontender, nondistended, normoactive bowel sounds. No palpable organomegaly. MUSCULOSKELETAL: No joint swelling or deformity. EXTREMITIES: No cyanosis, clubbing, or pedal edema. NEUROLOGICAL: Gross neurological examination did not reveal any focal deficits. SKIN: No rashes. - Labs CBC & Chem 7: 01/27/18 05:43 01/28/18 11:06 Labs: Abnormal Lab Results - Last 24 Hours (Table) 01/28/18 Range/Units 11:06 Chloride 96 L (98-107) mmol/L Carbon Dioxide 35 H (22-30) mmol/L BUN 48 H (7-17) mg/dL Creatinine 1.10 H (0.52-1.04) mg/dL Glucose 113 H (74-99) mg/dL Microbiology - Last 24 Hours (Table) 01/24/18 20:07 Blood Culture Gram Stain - Preliminary Blood Blood Culture - Preliminary Gram Positive Bacilli Isolated Assessment and Plan Plan: #1 Acute on chronic hypoxic respiratory failure secondary to mild exacerbation of combined systolic and diastolic congestive heart failure. His echocardiogram revealing impaired left ventricular systolic function with estimated ejection fraction 40% and severe pulmonary hypertension. Patient was switched to oral Lasix patient is to continues to have pedal edema which is due to chronic venous stasis and venous insufficiency #2 Morbid obesity, suspect obesity/hypoventilation syndrome. #3 congestive heart failure chronic systolic dysfunction with possible acute exacerbation #4 severe restrictive lung disease from morbid obesity and sleep apnea #5 Atrial fibrillation, anticoagulated with Eliquis. Patient heart rate is not well controlled at this is being managed by cardiology. #6 Hypertension, history of. #7 chronic venous stasis of bilateral lower expertise patient the has bilateral lower limb redness and the swelling due to her obesity #8 gastroesophageal reflux disease and history of peptic ulcer disease in the past
--- NOTE | 2018-01-28 13:22 | P.PN ---
Subjective Progress Note Date: 01/28/18 Principal diagnosis: Acute on chronic hypoxic respiratory failure secondary to combined systolic/ diastolic congestive heart failure This is a 68-year-old female seen yesterday in consultation for CHF/heart failure. She does have a history of chronic hypoxemic respiratory failure secondary to systolic and diastolic CHF. In addition, she suffers some severe pulmonary hypertension severe morbid obesity with pickwickian syndrome, ventilator dependent respiratory failure secondary to MRSA infection, C. difficile colitis chronic atrial fibrillation essential hypertension extremities cellulitis and duodenal ulcer. The patient seemed be doing relatively well today. She is on oxygen therapy. She does feel better. She is likely to be discharged to a specialized nursing facility although she does not know which one as yet. She is morbidly obese and does not ambulate particularly well. She discussed significant lower extremity edema and some chronic venous stasis changes in the lower extremities. On 01/27/2018 patient is seen in follow-up on selective care unit. She is resting in bed, denies any acute distress. She is currently on oral diuretics in the form of Lasix 40 mg by mouth twice daily, she is in -1310 fluid balance over the last 24 hours, she has had 4.5 kg weight loss since admission. Her dyspnea is improving, FiO2 is 4 L, her O2 sat is 92%. She remains in A. fib RVR , with a rate up to 113 BPM, cardiology is working on optimizing rate control. Patient is currently on oral Cardizem and metoprolol 100 mg twice a day. She is on anticoagulation in the form of Eliquis. Yesterday patient did set up at the bedside, and was able to clear some phlegm. Lung sounds are positive for some wheezes, particularly over right posterior lung. Patient still has a lot of edema in bilateral lower extremities, 1+ to 2+ bilateral lower extremity edema. The patient is seen again today 01/28/2018 in follow-up on the selective care unit. She is currently sitting up at the bedside. She is awake and alert in no acute distress. She is maintaining good O2 saturations in the 90s on 3 L/m per nasal cannula. She is continued on DuoNeb inhalations along with Pulmicort. She is afebrile. Blood pressure stable. She remains in atrial fibrillation with a rate in the 110's. Continued on Eliquis, Cardizem and Lopressor. BUN 40. Creatinine 1.10. Objective - Vital Signs Vital signs: Vital Signs Temp 97.4 F L 01/28/18 08:00 Pulse 110 H 01/28/18 12:18 Resp 17 01/28/18 11:35 BP 108/62 01/28/18 08:00 Pulse Ox 94 L 01/28/18 08:00 Intake & Output 01/27/18 01/28/18 01/28/18 18:59 06:59 18:59 Intake Total 480 480 Output Total 1999 2724 Balance -1520 -2725 480 Weight 173 kg Intake: Oral 480 480 Output: Urine 1999 2724 Other: Voiding Method Indwelling Catheter Indwelling Catheter # Bowel Movements 0 - Exam GENERAL EXAM: Morbidly obese. Alert, comfortable in no apparent distress. HEAD: Normocephalic. EYES: Normal reaction of pupils, equal size. NOSE: Clear with pink turbinates. THROAT: There is crowding of the posterior pharynx. No erythema or exudates. NECK: Short. No masses, no JVD. CHEST: No chest wall deformity. LUNGS: Equal air entry with no crackles, wheeze or rhonchi. Diminished. CVS: S1 and S2 normal with no audible murmur, irregular rhythm. ABDOMEN: Obese, normal bowel sounds, no guarding or rigidity. SPINE: No scoliosis or deformity SKIN: No rashes CENTRAL NERVOUS SYSTEM: No focal deficits, tone is normal in all 4 extremities. EXTREMITIES: Changes of chronic venous stasis. There is 2+ peripheral edema. No clubbing, no cyanosis. Peripheral pulses are intact. - Labs CBC & Chem 7: 01/27/18 05:43 01/28/18 11:06 Labs: Abnormal Lab Results - Last 24 Hours (Table) 01/28/18 Range/Units 11:06 Chloride 96 L (98-107) mmol/L Carbon Dioxide 35 H (22-30) mmol/L BUN 48 H (7-17) mg/dL Creatinine 1.10 H (0.52-1.04) mg/dL Glucose 113 H (74-99) mg/dL Microbiology - Last 24 Hours (Table) 01/24/18 20:07 Blood Culture Gram Stain - Preliminary Blood Blood Culture - Preliminary Gram Positive Bacilli Isolated Assessment and Plan Assessment: Impression: #1 Acute on chronic hypoxic respiratory failure secondary to mild exacerbation of combined systolic and diastolic congestive heart failure. His echocardiogram revealing impaired left ventricular systolic function with estimated ejection fraction 40% and severe pulmonary hypertension. Transitioned to oral diuretics. #2 Morbid obesity, suspect obesity/hypoventilation syndrome. #3 History of ventilatory dependent respiratory failure secondary to MRSA. #4 History of C. difficile colitis. #5 Atrial fibrillation, anticoagulated with Eliquis. #6 Hypertension, history of. #7 History of cellulitis of the lower extremities with chronic venous stasis. #8 History of duodenal ulcer with GI bleed. Plan: The patient was seen and evaluated by Dr. Bartlett. She is currently stable from the pulmonary standpoint. Continued bronchodilators. Discharge planning is in progress. We will continue to follow and make further recommendations based on her clinical status. I, the cosigning physician, performed a history & physical examination of the patient. Lungs sounds with crackles in the bilateral posterior bases.. Maintaining good O2 saturations in the 90s on 6 L/m per nasal cannula. I discussed the assessment and plan of care with my nurse practitioner, Iveth Da Silva. I attest to the above note as dictated by her.
[2018-01-28] MEDS: DILTIAZEM ORAL 60 MG TAB PO SCH ×2 (15:12→22:14)
[2018-01-29 06:55] LABS: Calcium 9.3 mg/dL (8.4-10.2); Potassium 4.4 mmol/L (3.5-5.1)
[2018-01-29] MEDS: BUDESONIDE 0.5 MG/2 ML NEBU INHALATION SCH ×2 (07:47→19:24)
[2018-01-29] MEDS: IPRATROPIUM-ALBUTEROL 3 ML NEB INHALATION PRN ×4 (07:47→19:24)
[2018-01-29] MEDS: METOPROLOL TARTRATE 50 MG TAB PO SCH ×2 (09:25→20:57)
[2018-01-29] MEDS: APIXABAN 5 MG TAB PO SCH ×2 (09:25→20:57)
[2018-01-29] MEDS: DILTIAZEM ORAL 60 MG TAB PO SCH (09:25)
[2018-01-29] MEDS: POTASSIUM CHLORIDE ER 10 MEQ TAB.ER.PRT PO SCH (09:25)
[2018-01-29] MEDS: FUROSEMIDE 40 MG TAB PO SCH ×2 (09:25→16:22)
[2018-01-29] MEDS: SPIRONOLACTONE 25 MG TAB PO SCH (09:26)
--- NOTE | 2018-01-29 14:26 | P.PN ---
Subjective 67-year-old female is being treated for congestive heart failure exacerbation patient is feeling much better today patient creatinine actually improved with IV Lasix patient is being continued on IV Lasix today switched to oral Lasix tomorrow we are also working on placement for her. Is again 4 L and patient uses 4 L at home. 01/27/2018 Reason for liters of oxygen does have pedal edema mostly due to venous insufficiency rather than heart failure because of which I am switching Lasix to oral discuss with cardiology, the patient heart rate is well controlled patient can be discharged tomorrow cardiology is increasing the dose of metoprolol 01/28/2018 Patient is still tachycardic increasing the dose of Cardizem will continue to monitor and possibility of discharge tomorrow home tomorrow if her heart rate is controlled 01/29/2018 Patient's heart rate is fairly well controlled today patient will be continued on Cardizem, [facility] Constitutional: Denied any fatigue denied any fever. Cardio vascular: denied any chest pain, palpitations Gastrointestinal denied any nausea vomiting Pulmonary: Denied any shortness of breath cough Neurologic denied any new focal deficits Objective - Vital Signs Vital signs: Vital Signs Temp 96.9 F L 01/29/18 12:00 Pulse 73 01/29/18 12:00 Resp 18 01/29/18 12:00 BP 107/62 01/29/18 12:00 Pulse Ox 93 L 01/29/18 12:00 Intake & Output 01/28/18 01/29/18 01/29/18 18:59 06:59 18:59 Intake Total 1460 600 354 Output Total 1350 675 Balance 110 -75 354 Weight 176.5 kg Intake: Oral 1460 600 354 Output: Urine 1350 675 Uretheral (Diop) 675 675 Other: Voiding Method Indwelling Catheter Bedside Commode Bedpan Bedpan # Voids 1 - Exam PHYSICAL EXAMINATION: GENERAL: The patient is alert and oriented x3, not in any acute distress. Morbidly obese HEENT: Pupils are round and equally reacting to light. EOMI. No scleral icterus. No conjunctival pallor. Normocephalic, atraumatic. No pharyngeal erythema. No thyromegaly. CARDIOVASCULAR: S1 and S2 present. No murmurs, rubs, or gallops. PULMONARY: Chest is clear to auscultation, no wheezing or crackles. ABDOMEN: Soft, nontender, nondistended, normoactive bowel sounds. No palpable organomegaly. MUSCULOSKELETAL: No joint swelling or deformity. EXTREMITIES: No cyanosis, clubbing, or pedal edema. NEUROLOGICAL: Gross neurological examination did not reveal any focal deficits. SKIN: No rashes. - Labs CBC & Chem 7: 01/27/18 05:43 01/29/18 06:28 Labs: Abnormal Lab Results - Last 24 Hours (Table) 01/29/18 Range/Units 06:28 Chloride 94 L (98-107) mmol/L Carbon Dioxide 34 H (22-30) mmol/L BUN 48 H (7-17) mg/dL Glucose 101 H (74-99) mg/dL Microbiology - Last 24 Hours (Table) 01/24/18 20:07 Blood Culture Gram Stain - Final Blood Blood Culture - Final Gram Positive Bacilli Isolated Assessment and Plan Plan: #1 Acute on chronic hypoxic respiratory failure secondary to mild exacerbation of combined systolic and diastolic congestive heart failure. His echocardiogram revealing impaired left ventricular systolic function with estimated ejection fraction 40% and severe pulmonary hypertension. Patient was switched to oral Lasix patient is to continues to have pedal edema which is due to chronic venous stasis and venous insufficiency #2 Morbid obesity, suspect obesity/hypoventilation syndrome. #3 congestive heart failure chronic systolic dysfunction with possible acute exacerbation #4 severe restrictive lung disease from morbid obesity and sleep apnea #5 Atrial fibrillation, anticoagulated with Eliquis. Patient heart rate is not well controlled at this is being managed by cardiology. #6 Hypertension, history of. #7 chronic venous stasis of bilateral lower expertise patient the has bilateral lower limb redness and the swelling due to her obesity #8 gastroesophageal reflux disease and history of peptic ulcer disease in the past
--- NOTE | 2018-01-29 14:41 | P.PN ---
Subjective Progress Note Date: 01/29/18 Principal diagnosis: CHF, A. fib This is a 68-year-old female patient with a past medical history significant for CHF related to diastolic dysfunction, chronic persistent atrial fibrillation, morbid obesity, and multiple comorbid conditions, was admitted to the hospital yesterday with acute on chronic respiratory failure secondary to CHF and COPD exacerbation.The patient continues to be in A. fib with uncontrolled heart rate. The shortness of breath is better. She continues to have bilateral lower extremities edema. We will increase the dose of Cardizem to 90 3 times a day. Objective - Vital Signs Vital signs: Vital Signs Temp 96.9 F L 01/29/18 12:00 Pulse 73 01/29/18 12:00 Resp 18 01/29/18 12:00 BP 107/62 01/29/18 12:00 Pulse Ox 93 L 01/29/18 12:00 Intake & Output 01/28/18 01/29/18 01/29/18 18:59 06:59 18:59 Intake Total 1460 600 354 Output Total 1350 675 Balance 110 -75 354 Weight 176.5 kg Intake: Oral 1460 600 354 Output: Urine 1350 675 Uretheral (Diop) 675 675 Other: Voiding Method Indwelling Catheter Bedside Commode Bedpan Bedpan # Voids 1 - Exam PHYSICAL EXAMINATION: This is a 68-year-old female, alert, oriented, in no apparent distress. Morbidly obese. HEENT: Head is atraumatic, normocephalic. Pupils equal, round. Neck is supple. There is no elevated jugular venous pressure. HEART EXAMINATION: Heart S1 and S2 irregularly irregular CHEST EXAMINATION: Lungs reveal diminished air entry to bilateral bases. ABDOMEN: Soft, obese, nontender. EXTREMITIES:[1+ peripheral pulses with significant bilateral peripheral edema, erythema and chronic skin changes noted bilaterally. NEUROLOGIC [atient is awake, alert and oriented -3.] . - Labs CBC & Chem 7: 01/27/18 05:43 01/29/18 06:28 Labs: Abnormal Lab Results - Last 24 Hours (Table) 01/29/18 Range/Units 06:28 Chloride 94 L (98-107) mmol/L Carbon Dioxide 34 H (22-30) mmol/L BUN 48 H (7-17) mg/dL Glucose 101 H (74-99) mg/dL Microbiology - Last 24 Hours (Table) 01/24/18 20:07 Blood Culture Gram Stain - Final Blood Blood Culture - Final Gram Positive Bacilli Isolated Assessment and Plan Plan: Assessment and plan #1 symptoms of progressively worsening shortness of breath, likely combination of diastolic congestive heart failure and COPD exacerbation. #2 atrial fibrillation with rapid ventricular response, patient has chronic persistent atrial fibrillation on Eliquis for anticoagulation #3 morbid obesity #4 severe bilateral cellulitis, chronic #5 acute on chronic renal insufficiency #6 hypertension #7 prior history of smoking #8 COPD Plan We will increase dose of Cardizem to 90 mg 3 times a day today. Continue the rest of her medications. We will follow her along with you now on an as-needed basis, please don't hesitate to call with any questions. DNP note has been reviewed, I agree with a documented findings and plan of care. Patient was seen and examined.
[2018-01-29] MEDS: DILTIAZEM ORAL 30 MG TAB PO SCH ×2 (16:22→20:58)
[2018-01-29] MEDS: MICONAZOLE NITRATE 4%/2% VAG CREAM KIT VAGINAL SCH (21:00)
[2018-01-30] MEDS: NYSTATIN 100,000 UNIT/GM POWD 15 GM TOPICAL SCH ×3 (04:30→22:25)
[2018-01-30 07:01] LABS: Calcium 9.4 mg/dL (8.4-10.2); Potassium 4.7 mmol/L (3.5-5.1)
[2018-01-30] MEDS: BUDESONIDE 0.5 MG/2 ML NEBU INHALATION SCH ×2 (08:05→19:24)
[2018-01-30] MEDS: IPRATROPIUM-ALBUTEROL 3 ML NEB INHALATION PRN ×4 (08:05→19:24)
[2018-01-30] MEDS: DILTIAZEM ORAL 30 MG TAB PO SCH ×3 (08:36→20:37)
[2018-01-30] MEDS: POTASSIUM CHLORIDE ER 10 MEQ TAB.ER.PRT PO SCH (08:37)
[2018-01-30] MEDS: METOPROLOL TARTRATE 50 MG TAB PO SCH ×2 (08:37→20:37)
[2018-01-30] MEDS: SPIRONOLACTONE 25 MG TAB PO SCH (08:37)
[2018-01-30] MEDS: FUROSEMIDE 40 MG TAB PO SCH ×2 (08:37→17:59)
[2018-01-30] MEDS: APIXABAN 5 MG TAB PO SCH ×2 (08:37→20:37)
--- NOTE | 2018-01-30 14:18 | P.PN ---
Subjective 67-year-old female is being treated for congestive heart failure exacerbation patient is feeling much better today patient creatinine actually improved with IV Lasix patient is being continued on IV Lasix today switched to oral Lasix tomorrow we are also working on placement for her. Is again 4 L and patient uses 4 L at home. 01/27/2018 Reason for liters of oxygen does have pedal edema mostly due to venous insufficiency rather than heart failure because of which I am switching Lasix to oral discuss with cardiology, the patient heart rate is well controlled patient can be discharged tomorrow cardiology is increasing the dose of metoprolol 01/28/2018 Patient is still tachycardic increasing the dose of Cardizem will continue to monitor and possibility of discharge tomorrow home tomorrow if her heart rate is controlled 01/29/2018 Patient's heart rate is fairly well controlled today patient will be continued on Cardizem, will be discharged on Wednesday to halfway. 01/30/2018 No overnight events patient will be transferred out of [facility] care is awaiting disposition to halfway Constitutional: Denied any fatigue denied any fever. Cardio vascular: denied any chest pain, palpitations Gastrointestinal denied any nausea vomiting Pulmonary: Denied any shortness of breath cough Neurologic denied any new focal deficits Objective - Vital Signs Vital signs: Vital Signs Temp 97 F L 01/30/18 08:30 Pulse 78 01/30/18 11:50 Resp 16 01/30/18 11:57 BP 103/77 01/30/18 11:50 Pulse Ox 93 L 01/30/18 11:50 Intake & Output 01/29/18 01/30/18 01/30/18 18:59 06:59 18:59 Intake Total 828 480 Balance 828 480 Weight 185 kg Intake: Oral 828 480 Other: Voiding Method Bedpan Bedpan Bedpan # Voids 1 2 1 # Bowel Movements 1 - Exam PHYSICAL EXAMINATION: GENERAL: The patient is alert and oriented x3, not in any acute distress. Morbidly obese HEENT: Pupils are round and equally reacting to light. EOMI. No scleral icterus. No conjunctival pallor. Normocephalic, atraumatic. No pharyngeal erythema. No thyromegaly. CARDIOVASCULAR: S1 and S2 present. No murmurs, rubs, or gallops. PULMONARY: Chest is clear to auscultation, no wheezing or crackles. ABDOMEN: Soft, nontender, nondistended, normoactive bowel sounds. No palpable organomegaly. MUSCULOSKELETAL: No joint swelling or deformity. EXTREMITIES: No cyanosis, clubbing, or pedal edema. NEUROLOGICAL: Gross neurological examination did not reveal any focal deficits. SKIN: No rashes. - Labs CBC & Chem 7: 01/27/18 05:43 01/30/18 06:26 Labs: Abnormal Lab Results - Last 24 Hours (Table) 01/30/18 Range/Units 06:26 Chloride 96 L (98-107) mmol/L Carbon Dioxide 34 H (22-30) mmol/L BUN 49 H (7-17) mg/dL Creatinine 1.20 H (0.52-1.04) mg/dL Glucose 104 H (74-99) mg/dL Assessment and Plan Plan: #1 Acute on chronic hypoxic respiratory failure secondary to mild exacerbation of combined systolic and diastolic congestive heart failure. His echocardiogram revealing impaired left ventricular systolic function with estimated ejection fraction 40% and severe pulmonary hypertension. Patient was switched to oral Lasix patient is to continues to have pedal edema which is due to chronic venous stasis and venous insufficiency #2 Morbid obesity, suspect obesity/hypoventilation syndrome. #3 congestive heart failure chronic systolic dysfunction with possible acute exacerbation #4 severe restrictive lung disease from morbid obesity and sleep apnea #5 Atrial fibrillation, anticoagulated with Eliquis. Patient heart rate is not well controlled at this is being managed by cardiology. #6 Hypertension, history of. #7 chronic venous stasis of bilateral lower expertise patient the has bilateral lower limb redness and the swelling due to her obesity #8 gastroesophageal reflux disease and history of peptic ulcer disease in the past
[2018-01-31] MEDS: MICONAZOLE NITRATE 4%/2% VAG CREAM KIT VAGINAL SCH ×2 (00:19→22:18)
[2018-01-31] MEDS: IPRATROPIUM-ALBUTEROL 3 ML NEB INHALATION PRN ×3 (07:17→20:15)
[2018-01-31] MEDS: BUDESONIDE 0.5 MG/2 ML NEBU INHALATION SCH ×2 (07:17→20:15)
[2018-01-31] MEDS: APIXABAN 5 MG TAB PO SCH ×2 (08:17→22:19)
[2018-01-31] MEDS: METOPROLOL TARTRATE 50 MG TAB PO SCH ×2 (08:17→22:18)
[2018-01-31] MEDS: SPIRONOLACTONE 25 MG TAB PO SCH (08:17)
[2018-01-31] MEDS: POTASSIUM CHLORIDE ER 10 MEQ TAB.ER.PRT PO SCH (08:17)
[2018-01-31] MEDS: FUROSEMIDE 40 MG TAB PO SCH ×2 (08:17→16:01)
[2018-01-31] MEDS: NYSTATIN 100,000 UNIT/GM POWD 15 GM TOPICAL SCH ×2 (08:18→22:20)
[2018-01-31 09:40] LABS: Calcium 9.6 mg/dL (8.4-10.2); Potassium 4.6 mmol/L (3.5-5.1)
[2018-01-31] MEDS: DILTIAZEM ORAL 30 MG TAB PO SCH ×3 (09:58→22:19)
[2018-01-31 15:05] VITALS: BMI 70.5
--- NOTE | 2018-01-31 16:40 | P.PN ---
Subjective Progress Note Date: 01/31/18 Progress note being dictated for Dr. Connors Interval history:67-year-old female is being treated for congestive heart failure exacerbation patient is feeling much better today patient creatinine actually improved with IV Lasix patient is being continued on IV Lasix today switched to oral Lasix tomorrow we are also working on placement for her. Is again 4 L and patient uses 4 L at home. 01/27/2018 Reason for liters of oxygen does have pedal edema mostly due to venous insufficiency rather than heart failure because of which I am switching Lasix to oral discuss with cardiology, the patient heart rate is well controlled patient can be discharged tomorrow cardiology is increasing the dose of metoprolol 01/28/2018 Patient is still tachycardic increasing the dose of Cardizem will continue to monitor and possibility of discharge tomorrow home tomorrow if her heart rate is controlled 01/29/2018 Patient's heart rate is fairly well controlled today patient will be continued on Cardizem, will be discharged on Wednesday to [facility]. 01/30/2018 No overnight events patient will be transferred out of [facility] care is awaiting disposition to [facility] Constitutional: Denied any fatigue denied any fever. Cardio vascular: denied any chest pain, palpitations Gastrointestinal denied any nausea vomiting Pulmonary: Denied any shortness of breath cough Neurologic denied any new focal deficits 01/31/2018 no overnight events. Maintained on 4 L nasal cannula o2, which patient states is baseline. Creatinine 1.24. Awaiting placement at subacute rehab. Objective - Vital Signs Vital signs: Vital Signs Temp 96.9 F L 01/31/18 14:36 Pulse 84 01/31/18 14:36 Resp 18 01/31/18 14:36 BP 109/69 01/31/18 14:36 Pulse Ox 96 01/31/18 14:36 Intake & Output 01/30/18 01/31/18 01/31/18 18:59 06:59 18:59 Intake Total 480 Balance 480 Weight 186.5 kg 186.5 kg Intake: Oral 480 Blood Product 0 Other: Voiding Method Bedpan Bedpan Bedpan Diaper Diaper Incontinent Incontinent # Voids 1 1 1 - Exam GENERAL: The patient is alert and oriented x3, no acute distress. Morbidly obese HEENT: Pupils are round and equally reacting to light. EOMI. No scleral icterus. No conjunctival pallor. Normocephalic, atraumatic. No pharyngeal erythema. No thyromegaly. CARDIOVASCULAR: S1 and S2 present. No murmurs, rubs, or gallops. PULMONARY: Chest is clear to auscultation, no wheezing or crackles. ABDOMEN: Soft, nontender, nondistended, normoactive bowel sounds. No palpable organomegaly. MUSCULOSKELETAL: No joint swelling or deformity. EXTREMITIES: No cyanosis, clubbing, or pedal edema. NEUROLOGICAL: Gross neurological examination did not reveal any focal deficits. SKIN: No rashes. - Labs CBC & Chem 7: 01/27/18 05:43 01/31/18 08:40 Labs: Abnormal Lab Results - Last 24 Hours (Table) 01/31/18 Range/Units 08:40 Chloride 96 L (98-107) mmol/L Carbon Dioxide 34 H (22-30) mmol/L BUN 48 H (7-17) mg/dL Creatinine 1.24 H (0.52-1.04) mg/dL Glucose 111 H (74-99) mg/dL Assessment and Plan Assessment: #1 Acute on chronic hypoxic respiratory failure secondary to mild exacerbation of combined systolic and diastolic congestive heart failure. His echocardiogram revealing impaired left ventricular systolic function with estimated ejection fraction 40% and severe pulmonary hypertension. Patient was switched to oral Lasix patient is to continues to have pedal edema which is due to chronic venous stasis and venous insufficiency #2 Morbid obesity, suspect obesity/hypoventilation syndrome. #3 congestive heart failure chronic systolic dysfunction with possible acute exacerbation #4 severe restrictive lung disease from morbid obesity and sleep apnea #5 Atrial fibrillation, anticoagulated with Eliquis. Patient heart rate is not well controlled at this is being managed by cardiology. #6 Hypertension, history of. #7 chronic venous stasis of bilateral lower expertise patient the has bilateral lower limb redness and the swelling due to her obesity #8 gastroesophageal reflux disease and history of peptic ulcer disease in the past Plan: Continue on current medication regime ,monitoring and symptomatic treatment. Close monitoring of renal function, electrolytes with repeat labs ordered for a.m. Awaiting subacute rehab placement. Discharge planning in progress. The impression and plan of care has been dictated as directed. : I performed a history and examination of this patient, discussed the same with the dictator. I agree with the dictator's note ,documented as a scribe. Any additional findings or plans will be noted.
[2018-02-01] MEDS: IPRATROPIUM-ALBUTEROL 3 ML NEB INHALATION PRN ×2 (07:20→11:20)
[2018-02-01] MEDS: BUDESONIDE 0.5 MG/2 ML NEBU INHALATION SCH (07:20)
[2018-02-01 07:50] VITALS: BP 100/66; RESP 20; TEMP 97.8
[2018-02-01] MEDS: METOPROLOL TARTRATE 50 MG TAB PO SCH (08:01)
[2018-02-01] MEDS: FUROSEMIDE 40 MG TAB PO SCH (08:01)
[2018-02-01] MEDS: APIXABAN 5 MG TAB PO SCH (08:01)
[2018-02-01] MEDS: SPIRONOLACTONE 25 MG TAB PO SCH (08:01)
[2018-02-01] MEDS: POTASSIUM CHLORIDE ER 10 MEQ TAB.ER.PRT PO SCH (08:01)
[2018-02-01] MEDS: DILTIAZEM ORAL 30 MG TAB PO SCH (08:01)
[2018-02-01] MEDS: NYSTATIN 100,000 UNIT/GM POWD 15 GM TOPICAL SCH (08:03)
[2018-02-01 11:28] VITALS: PULSE 80
--- NOTE | 2018-02-01 12:58 | CDI ---
Last Revision, September 2017 Documentation Clarification Form Date: 02/01/2018 12:42:00 PM From: Marge Buitrago RN, CCDS Admit Date: 01/24/2018 10:52:00 PM Patient Name: Tanna Robertson Visit Number: [id number] ATTENTION: The Clinical Documentation Specialists (CDI) and [facility] Coding Staff appreciate your assistance in clarifying documentation. Please respond to the clarification below the line at the bottom and electronically sign. The CDI & [facility] Coding staff will review the response and follow-up if needed. Please note: Queries are made part of the Legal Health Record. If you have any questions, please contact the author of this message via ITS. Dr. Harmeet Connors/ Dg Pak CNP History/Risk Factors: Atrial Fib, acute on chronic combined CHF, chronic venous stasis Clinical Indicators: 01/25 & 01/29 Cardiology Consult and Progress Notes: "acute on chronic renal insufficiency" Current BUN: 35/43/50/48/49/48 CR: 1.2/1.15/1.2/1.1/1/1.2/1.24 GFR: 47/52/58/47/45 07/22/17 Patients Baseline: BUN/CR/GFR: /./ 50 Treatment: Po aldactone 25 mg PO QD IVP Lasix80 mg IVP x1, followed by 40 mg IVP Q 12, followed by 40 mg PO QD In order to capture the severity of condition, please clarify if the condition signifies: Acute renal failure, Please specify etiology (if known): Cortical Necrosis Medullary Necrosis Tubular Necrosis Acute kidney injury Acute on chronic renal failure CKD Stage 1 GFR >90 CKD Stage 2 GFR 60-89 CKD Stage 3 GFR 30-59 CKD Stage 4 GFR 15-29 CKD Stage 5 GFR <15 Chronic renal failure/Chronic Kidney disease (CKD) please stage if known CKD Stage 1 GFR >90 CKD Stage 2 GFR 60-89 CKD Stage 3 GFR 30-59 CKD Stage 4 GFR 15-29 CKD Stage 5 GFR <15 ESRD Other, please specify Unable to determine Please continue to document in your progress notes and discharge summary in order to capture severity of illness and risk of mortality. Include clinical findings that support your diagnosis. MTDD
--- NOTE | 2018-02-01 13:15 | P.DS ---
Providers Date of admission: 01/24/18 22:52 Expected date of discharge: 02/01/18 Attending physician: Bud Connors Consults: 01/24/18 22:52 Consult Physician Routine Consulting Provider: Liz Anderson Consult Reason/Comments: chf, a-fib Do you want consulting provider notified?: Yes Primary care physician: Anuel Dominique [facility] Course: Final Diagnoses: #1 Acute on chronic hypoxic respiratory failure secondary to mild exacerbation of combined systolic and diastolic congestive heart failure. His echocardiogram revealing impaired left ventricular systolic function with estimated ejection fraction 40% and severe pulmonary hypertension. -chronic venous stasis and venous insufficiency #2 Morbid obesity, suspect obesity/hypoventilation syndrome. #3 congestive heart failure chronic systolic dysfunction with possible acute exacerbation #4 severe restrictive lung disease from morbid obesity and sleep apnea #5 Atrial fibrillation, anticoagulated with Eliquis. Patient heart rate is not well controlled at this is being managed by cardiology. #6 Hypertension, history of. #7 chronic venous stasis of bilateral lower expertise patient the has bilateral lower limb redness and the swelling due to her obesity #8 gastroesophageal reflux disease and history of peptic ulcer disease Hospital COurse: This is a 67-year-old female is being treated for congestive heart failure exacerbation, acute on chronic hypoxic respiratory failure and multiple other medical issues. Evaluated by cardiology and pulmonary. Diuresed well on Lasix IV push, transitioned to oral. Significant clinical improvement. Cleared by both pulmonary and cardiology for discharge. Patient is being discharged to [facility] today in a stable condition with guarded prognosis. GENERAL: VSS, alert and oriented x3, no acute distress. CARDIOVASCULAR: S1 and S2 present. No murmurs, rubs, or gallops. PULMONARY: Chest is clear to auscultation, no wheezing or crackles. ABDOMEN: Soft, nontender, nondistended, normoactive bowel sounds. No palpable organomegaly. NEUROLOGICAL: Gross neurological examination did not reveal any focal deficits. The impression and plan of care has been dictated as directed. : I performed a history and examination of this patient, discussed the same with the dictator. I agree with the dictator's note ,documented as a scribe. Any additional findings or plans will be noted. Time taken: 35 minutes Patient Condition at Discharge: Stable Plan - Discharge Summary Discharge Rx Participant: No New Discharge Prescriptions: New Acetaminophen Tab [Tylenol] 650 mg PO Q6HR PRN tab PRN Reason: Fever And/ Or Pain Diltiazem Oral [Cardizem*] 90 mg PO TID tab Furosemide [Lasix] 40 mg PO BID@0900,1600 tab Metoprolol Tartrate [Lopressor] 100 mg PO BID tab Nystatin 100,000 Unit/gm Powd [Mycostatin Powder] 1 applic TOPICAL BID applic Continue Apixaban [Eliquis] 5 mg PO BID tab Ipratropium-Albuterol Nebulize [Duoneb 0.5 mg-3 mg/3 ml Soln] 3 ml INHALATION RT-QID PRN PRN Reason: Shortness Of Breath Spironolactone [Aldactone] 25 mg PO DAILY SILVER sulfADIAZINE CREAM [Silvadene Cream] 1 applic TOPICAL DAILY Potassium Chloride ER [K-Dur 10] 10 meq PO DAILY Budesonide [Pulmicort] 0.5 mg INHALATION RT-BID Miconazole Nitrate [Miconazole Nitrate 2%] 1 applic TOPICAL Q8H PRN PRN Reason: Rash Acetylcysteine Solution 20% 1 vial INHALATION Q12HR PRN PRN Reason: Shortness Of Breath Discontinued Furosemide [Lasix] 20 mg PO Q48H Furosemide [Lasix] 20 mg PO DAILY Torsemide [Demadex] 20 mg PO DAILY Metoprolol Tartrate [Lopressor] 50 mg PO BID Discharge Medication List Apixaban [Eliquis] 5 mg PO BID tab 03/16/17 [Rx] Ipratropium-Albuterol Nebulize [Duoneb 0.5 mg-3 mg/3 ml Soln] 3 ml INHALATION RT -QID PRN 07/19/17 [History] Acetylcysteine Solution 20% 1 vial INHALATION Q12HR PRN 01/24/18 [History] Budesonide [Pulmicort] 0.5 mg INHALATION RT-BID 01/24/18 [History] Miconazole Nitrate [Miconazole Nitrate 2%] 1 applic TOPICAL Q8H PRN 01/24/18 [ History] Potassium Chloride ER [K-Dur 10] 10 meq PO DAILY 01/24/18 [History] SILVER sulfADIAZINE CREAM [Silvadene Cream] 1 applic TOPICAL DAILY 01/24/18 [ History] Spironolactone [Aldactone] 25 mg PO DAILY 01/24/18 [History] Acetaminophen Tab [Tylenol] 650 mg PO Q6HR PRN tab 02/01/18 [Rx] Diltiazem Oral [Cardizem*] 90 mg PO TID tab 02/01/18 [Rx] Furosemide [Lasix] 40 mg PO BID@0900,1600 tab 02/01/18 [Rx] Metoprolol Tartrate [Lopressor] 100 mg PO BID tab 02/01/18 [Rx] Nystatin 100,000 Unit/gm Powd [Mycostatin Powder] 1 applic TOPICAL BID applic 02/01/18 [Rx] Follow up Appointment(s)/Referral(s): Mike Child MD [STAFF PHYSICIAN] - 1 Week Catina Agee MD [Primary Care Provider] - 1 Week Kirit Bartlett DO [Doctor of Osteopathic Medicine] - 2 Weeks Patient Instructions/Handouts: Heart Failure (DC), Cellulitis (DC) Activity/Diet/Wound Care/Special Instructions: [facility] and then when sent home [facility] will follow- [phone] Cardiac diet. Fall precautions, up with assist and cane. Change positions every 2 hours while awake. Continue oxygen via nasal cannula at 4 Liters keeping sats greater than 92% CBC,BMP in 3 days
== END 2018-02-01 15:51 | DRG 291 ==
LOC: EC 18:44 → 6SEL 22:52 → 4MS4W 01-30 15:25
PROVIDERS: ADMIT Hospitalist; ATTEND Hospitalist
PROC: 5A09357 Assistance with Respiratory Ventilation, Less than 24 Consecutive Hours, Continuous Positive Airway Pressure (ICD-10-PCS; principal; 2018-02-01)
DX: I13.0 Hypertensive heart and chronic kidney disease with heart failure and stage 1 through stage 4 chronic kidney disease, or unspecified chronic kidney disease (principal); I50.43 Acute on chronic combined systolic (congestive) and diastolic (congestive) heart failure; J96.21 Acute and chronic respiratory failure with hypoxia; N17.9 Acute kidney failure, unspecified; I27.20 Pulmonary hypertension, unspecified; E66.2 Morbid (severe) obesity with alveolar hypoventilation; L03.115 Cellulitis of right lower limb; J44.1 Chronic obstructive pulmonary disease with (acute) exacerbation; Z68.45 Body mass index [BMI] 70 or greater, adult; L03.116 Cellulitis of left lower limb; I48.2 Chronic atrial fibrillation; Z99.81 Dependence on supplemental oxygen; N18.3 Chronic kidney disease, stage 3 (moderate); J98.4 Other disorders of lung; I87.8 Other specified disorders of veins; K21.9 Gastro-esophageal reflux disease without esophagitis; I87.2 Venous insufficiency (chronic) (peripheral); F40.240 Claustrophobia; D64.9 Anemia, unspecified; Z71.3 Dietary counseling and surveillance; Z79.01 Long term (current) use of anticoagulants; Z79.51 Long term (current) use of inhaled steroids; Z79.899 Other long term (current) drug therapy; Z87.891 Personal history of nicotine dependence; Z86.14 Personal history of Methicillin resistant Staphylococcus aureus infection; Z86.19 Personal history of other infectious and parasitic diseases; Z87.11 Personal history of peptic ulcer disease; Z90.49 Acquired absence of other specified parts of digestive tract; Z82.61 Family history of arthritis; Z83.3 Family history of diabetes mellitus; Z82.49 Family history of ischemic heart disease and other diseases of the circulatory system; Z83.518 Family history of other specified eye disorder; Z84.1 Family history of disorders of kidney and ureter
CPT/HCPCS: 36415; 71045; 80048; 80053; 82550; 82553; 83880; 84484; 85025; 85610; 85730; 87040; 93005; 93306; 94640; 94760; 96365; 96366; 96375; 99291

== ENCOUNTER 2018-03-25 13:57 | Inpatient (IN) | payer MEDICARE, MEDICAID ==
[2018-03-25] MEDS ORDERED: methylPREDNISolone SOD SUCCI 125 MG/2 ML VIAL IV STA (14:23)
[2018-03-25] MEDS ORDERED: IPRATROPIUM-ALBUTEROL 3 ML NEB INHALATION STA (14:23)
[2018-03-25] MEDS ORDERED: FUROSEMIDE 10 MG/ML 4 ML VIAL IV STA (14:23)
--- NOTE | 2018-03-25 14:32 | ED ---
SOB HPI - General Chief Complaint: Shortness of Breath Stated Complaint: SOB Time Seen by Provider: 03/25/18 14:00 Source: patient, EMS Mode of arrival: EMS Limitations: no limitations - History of Present Illness Initial Comments: Patient is a 60-year-old female which is oxygen dependent on 4 L at home presenting for shortness breath. Daughter's bedside and states that the patient has been in and out of rehab since July and has CHF and COPD. She states that over the last few days, the shortness of breath has been worsening and there is worsening lower extremity edema. The patient does not ambulate and states that she becomes short of breath when speaking but denies any chest pain, any abdominal pain, any coughing, any fevers/chills, any nausea/vomiting/ diarrhea. - Related Data Home Medications Medication Instructions Recorded Confirmed Ipratropium-Albuterol Nebulize 3 ml INHALATION RT-QID 07/19/17 03/25/18 [Duoneb 0.5 mg-3 mg/3 ml Soln] Spironolactone [Aldactone] 25 mg PO DAILY 01/24/18 03/25/18 Apixaban [Eliquis] 5 mg PO BID 03/25/18 03/25/18 Aspirin EC [Ecotrin Low Dose] 81 mg PO DAILY 03/25/18 03/25/18 Bisacodyl [Dulcolax] 10 mg RECTAL DAILY PRN 03/25/18 03/25/18 Fluticasone/Salmeterol [Advair 1 puff INHALATION RT-BID 03/25/18 03/25/18 250-50 Diskus] Furosemide [Lasix] 60 mg PO BID 03/25/18 03/25/18 Ipratropium-Albuterol Nebulize 3 ml INHALATION RT-Q6H PRN 03/25/18 03/25/18 [Duoneb 0.5 mg-3 mg/3 ml Soln] Magnesium Hydroxide [Milk of 2,400 mg PO DAILY PRN 03/25/18 03/25/18 Magnesia] Metoprolol Tartrate [Lopressor] 100 mg PO DAILY 03/25/18 03/25/18 Multivits,Th W-Ca,Fe,Oth Min 1 tab PO DAILY 03/25/18 03/25/18 [Therapeutic M] Na Phos,M-B/Na Phos,Di-Ba [Fleet 133 ml RECTAL ONCE PRN 03/25/18 03/25/18 Adult] Previous Rx's Medication Instructions Recorded Acetaminophen Tab [Tylenol] 650 mg PO Q6HR PRN tab 02/01/18 Diltiazem Oral [Cardizem*] 90 mg PO TID tab 02/01/18 Allergies Allergy/AdvReac Type Severity Reaction Status Date / Time No Known Allergies Allergy Verified 03/25/18 14:39 Review of Systems ROS Statement: Those systems with pertinent positive or pertinent negative responses have been documented in the HPI. Constitutional: Negative for chills, fatigue and fever. HENT: Negative for congestion. Respiratory: Negative for chest tightness, and wheezing. Negative for cough. Positive for shortness of breath Cardiovascular: Negative for chest pain and palpitations. Positive for lower extremity edema Gastrointestinal: Negative for abdominal pain. Negative for abdominal distention , diarrhea, nausea and vomiting. Genitourinary: Negative for dysuria. Musculoskeletal: Negative for back pain, neck pain and neck stiffness. Skin: Negative for color change. Neurological: Negative for dizziness, speech difficulty, weakness and light- headedness. Psychiatric/Behavioral: Negative for agitation and confusion. The patient is not nervous/anxious. ROS Other: All systems not noted in ROS Statement are negative. Past Medical History Past Medical History: Atrial Fibrillation, Asthma, Heart Failure, COPD, GI Bleed , Hypertension Additional Past Medical History / Comment(s): clinical impression acute diverticulitis, cellulitis ll extremitis. 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 Past Psychological History: No Psychological Hx Reported Smoking Status: Former smoker Past Alcohol Use History: None Reported Past Drug Use History: None Reported - Past Family History Father Family Medical History: Eye Disorder, Osteoarthritis (OA) Additional Family Medical History / Comment(s): at age 92 from old age, had macular degeneration Mother Family Medical History: Coronary Artery Disease (CAD), Diabetes Mellitus, Hypertension, Renal Disease Additional Family Medical History / Comment(s): cabg, dialysis General Exam - General Exam Comments Initial Comments: Constitutional: Pt is oriented to person, place, and time. Pt appears well- developed and well-nourished. No distress. HENT: Head: Normocephalic and atraumatic. Eyes: EOM are normal. Neck: Normal range of motion. Neck supple. Cardiovascular: Normal rate, regular rhythm, S1 normal, S2 normal and normal heart sounds. Exam reveals no gallop and no friction rub. No murmur heard. 3+ nonpitting edema of the bilateral lower extremities present Pulmonary/Chest: Effort normal and decreased breath sounds present. Tachypnea is present. No respiratory distress. No wheezes or rales noted. Abdominal: Soft. Bowel sounds are normal. Pt exhibits no shifting dullness, no distension, no pulsatile liver, no fluid wave, no abdominal bruit and no ascites. There is no tenderness. There is no rigidity, no rebound, no guarding, no tenderness at McBurney's point and negative Acosta's sign. Musculoskeletal: Normal range of motion. Neurological: Pt is alert and oriented to person, place, and time. No cranial nerve deficit. Skin: Skin is warm and dry. No rash noted. Pt is not diaphoretic. No erythema. No pallor. Psychiatric: Pt has a normal mood and affect. Pt behavior is normal. Thought content normal. Limitations: no limitations Course Vital Signs 03/25/18 03/25/18 03/25/18 13:58 15:06 15:13 Temperature 97.7 F Pulse Rate 85 68 80 Respiratory 28 H Rate Blood Pressure 103/56 O2 Sat by Pulse 83 L Oximetry 03/25/18 03/25/18 15:23 16:20 Temperature Pulse Rate 77 Respiratory 28 H 28 H Rate Blood Pressure 115/70 O2 Sat by Pulse 97 Oximetry - Reevaluation(s) Reevaluation #1: 03/25/18 14:32 Although the patient does not appear to be in apparent respiratory failure, it is felt that the patient should be placed on BiPAP as she does have some mild tachypnea as well as hypoxia greater than her baseline. She is also been ordered steroids, Lasix, DuoNeb as this is unclear whether this is CHF, COPD or a combination of the two. Medical Decision Making - Medical Decision Making Laboratory studies showed that there is no evidence of leukocytosis and troponin was not elevated. Patient remained on BiPAP throughout her ED stay and was given steroids as well as breathing treatment. Her oxygenation did increase to the mid 90s and therefore is felt she was appropriate for the telemetry floor. She was also covered for Levaquin in the event that this is an infectious type process. However, laboratory studies do not indicate this and chest x-ray is not reliable enough to show infiltrate as her body habitus is too large to give a reliable study. Explained all labs and diagnostic test results and that we will admit patient to hospital. Pt is agreeable to plan and case has been discussed with Dr. Kwon and they agree to accept the pt. - Lab Data Result diagrams: 03/25/18 14:51 03/25/18 14:51 Lab Results 03/25/18 03/25/18 03/25/18 Range/Units 14:51 14:51 14:51 WBC 8.7 (3.8-10.6) k/uL RBC 4.41 (3.80-5.40) m/uL Hgb 10.3 L (11.4-16.0) gm/dL Hct 34.1 (34.0-46.0) % MCV 77.4 L (80.0-100.0) fL MCH 23.5 L (25.0-35.0) pg MCHC 30.3 L (31.0-37.0) g/dL RDW 19.3 H (11.5-15.5) % Plt Count 249 (150-450) k/uL Neutrophils % 74 % Lymphocytes % 16 % Monocytes % 6 % Eosinophils % 2 % Basophils % 0 % Neutrophils # 6.4 (1.3-7.7) k/uL Lymphocytes # 1.4 (1.0-4.8) k/uL Monocytes # 0.5 (0-1.0) k/uL Eosinophils # 0.2 (0-0.7) k/uL Basophils # 0.0 (0-0.2) k/uL Hypochromasia Marked Poikilocytosis Slight Anisocytosis Slight Microcytosis Slight PT 10.4 (9.0-12.0) sec INR 1.1 (<1.2) APTT 22.9 (22.0-30.0) sec Sodium 139 (137-145) mmol/L Potassium 4.6 (3.5-5.1) mmol/L Chloride 91 L (98-107) mmol/L Carbon Dioxide 39 H (22-30) mmol/L Anion Gap 9 mmol/L BUN 39 H (7-17) mg/dL Creatinine 0.93 (0.52-1.04) mg/dL Est GFR (CKD-EPI)AfAm 74 (>60 ml/min/1.73 sqM) Est GFR (CKD-EPI)NonAf 64 (>60 ml/min/1.73 sqM) Glucose 131 H (74-99) mg/dL Calcium 9.8 (8.4-10.2) mg/dL Magnesium 2.1 (1.6-2.3) mg/dL Total Bilirubin 0.4 (0.2-1.3) mg/dL AST 33 (14-36) U/L ALT 33 (9-52) U/L Alkaline Phosphatase 81 (38-126) U/L Troponin I (0.000-0.034) ng/mL Total Protein 6.0 L (6.3-8.2) g/dL Albumin 3.3 L (3.5-5.0) g/dL 03/25/18 Range/Units 14:51 WBC (3.8-10.6) k/uL RBC (3.80-5.40) m/uL Hgb (11.4-16.0) gm/dL Hct (34.0-46.0) % MCV (80.0-100.0) fL MCH (25.0-35.0) pg MCHC (31.0-37.0) g/dL RDW (11.5-15.5) % Plt Count (150-450) k/uL Neutrophils % % Lymphocytes % % Monocytes % % Eosinophils % % Basophils % % Neutrophils # (1.3-7.7) k/uL Lymphocytes # (1.0-4.8) k/uL Monocytes # (0-1.0) k/uL Eosinophils # (0-0.7) k/uL Basophils # (0-0.2) k/uL Hypochromasia Poikilocytosis Anisocytosis Microcytosis PT (9.0-12.0) sec INR (<1.2) APTT (22.0-30.0) sec Sodium (137-145) mmol/L Potassium (3.5-5.1) mmol/L Chloride (98-107) mmol/L Carbon Dioxide (22-30) mmol/L Anion Gap mmol/L BUN (7-17) mg/dL Creatinine (0.52-1.04) mg/dL Est GFR (CKD-EPI)AfAm (>60 ml/min/1.73 sqM) Est GFR (CKD-EPI)NonAf (>60 ml/min/1.73 sqM) Glucose (74-99) mg/dL Calcium (8.4-10.2) mg/dL Magnesium (1.6-2.3) mg/dL Total Bilirubin (0.2-1.3) mg/dL AST (14-36) U/L ALT (9-52) U/L Alkaline Phosphatase (38-126) U/L Troponin I 0.020 (0.000-0.034) ng/mL Total Protein (6.3-8.2) g/dL Albumin (3.5-5.0) g/dL - EKG Data EKG Comments: EKG shows rate of 68 bpm consistent with atrial fibrillation. TX interval is not applicable and QRS duration measured at 80. QTC measured at 397. No significant ST depressions or elevations are present. Disposition Clinical Impression: Hypoxia, CHF exacerbation Disposition: ADMITTED IP TO THIS HOSP Condition: Fair Referrals: Kirit Dill DO [Primary Care Provider] - 1-2 days Decision to Admit Reason: Admit from EC Decision Date: 03/25/18 Decision Time: 16:31
[2018-03-25 15:16] LABS: INR 1.1 (<1.2); Partial Thromboplastin Time 22.9 sec (22.0-30.0); Prothrombin Time 10.4 sec (9.0-12.0)
[2018-03-25 15:22] LABS: Albumin 3.3 g/dL (3.5-5.0); Calcium 9.8 mg/dL (8.4-10.2); Magnesium 2.1 mg/dL (1.6-2.3); Potassium 4.6 mmol/L (3.5-5.1); Total Bilirubin 0.4 mg/dL (0.2-1.3)
--- NOTE | 2018-03-25 15:28 | XR ---
EXAMINATION TYPE: XR chest 1V portable DATE OF EXAM: 03/25/2018 COMPARISON: 01/24/2018 HISTORY: Shortness of breath TECHNIQUE: Single frontal view of the chest is obtained. FINDINGS: Exam is limited due to patient body habitus, degree of inspiration and motion. However the re appears to be at least mild pulmonary vascular congestion and marked cardiomegaly. Cardiomegaly wa s marked on the prior exam of 01/24/2018. Patient's chin obscures the lung apices. Osseous structures a re grossly intact. IMPRESSION: Limited exam due to the above stated reasons. There appears to be mild pulmonary vascula r congestion and marked cardiomegaly. Congestive heart failure should be considered.
[2018-03-25 15:44] LABS: Anisocytosis Slight; Basophils % (A) 0 %; Eosinophils # (A) 0.2 k/uL (0-0.7); Eosinophils % (A) 2 %; HCT 34.1 % (34.0-46.0); HGB 10.3 gm/dL (11.4-16.0); Hypochromasia Marked; Lymphocytes # (A) 1.4 k/uL (1.0-4.8); Lymphocytes % (A) 16 %; MCH 23.5 pg (25.0-35.0); MCHC 30.3 g/dL (31.0-37.0); MCV 77.4 fL (80.0-100.0); Microcytosis Slight; Monocytes # (A) 0.5 k/uL (0-1.0); Monocytes % (A) 6 %; Neutrophils # (A) 6.4 k/uL (1.3-7.7); Neutrophils % (A) 74 %; Platelet Count 249 k/uL (150-450); Poikilocytosis Slight; RBC 4.41 m/uL (3.80-5.40); RDW 19.3 % (11.5-15.5); WBC 8.7 k/uL (3.8-10.6)
[2018-03-25] MEDS ORDERED: LEVOFLOXACIN 500MG-D5W PMX 500 MG in DEXTROSE/WATER 1 100ML.BAG IVPB STA (16:06)
[2018-03-25] MEDS ORDERED: NALOXONE 0.4 MG/ML 1 ML VIAL IV PRN (17:30)
[2018-03-25] MEDS ORDERED: ACETAMINOPHEN TAB 500 MG TAB PO STA (17:31)
[2018-03-25] MEDS ORDERED: MAGNESIUM HYDROXIDE 2,400 MG/10 ML CUP PO PRN (21:48)
[2018-03-25] MEDS ORDERED: BISACODYL 10 MG SUPP RECTAL PRN (21:48)
[2018-03-25] MEDS ORDERED: NA PHOS,M-B/NA PHOS,DI-BA 133 ML ENEMA RECTAL PRN (21:48)
[2018-03-25] MEDS: DILTIAZEM ORAL 30 MG TAB PO SCH (22:18)
[2018-03-25] MEDS: FUROSEMIDE 10 MG/ML 4 ML VIAL IV SCH (22:18)
[2018-03-25] MEDS: APIXABAN 5 MG TAB PO SCH (22:18)
[2018-03-26] MEDS: IPRATROPIUM-ALBUTEROL 3 ML NEB INHALATION PRN ×4 (03:52→23:15)
[2018-03-26 06:42] LABS: Calcium 9.9 mg/dL (8.4-10.2); Potassium 4.4 mmol/L (3.5-5.1)
[2018-03-26 06:59] LABS: Anisocytosis Slight; Basophils % (A) 0 %; Eosinophils % (A) 0 %; HGB 11.3 gm/dL (11.4-16.0); Hypochromasia Marked; Lymphocytes # (A) 1.2 k/uL (1.0-4.8); Lymphocytes % (A) 17 %; MCH 23.8 pg (25.0-35.0); MCHC 30.6 g/dL (31.0-37.0); MCV 77.7 fL (80.0-100.0); Mean Platelet Volume 8.5; Microcytosis Slight; Monocytes # (A) 0.2 k/uL (0-1.0); Monocytes % (A) 3 %; Neutrophils # (A) 5.5 k/uL (1.3-7.7); Neutrophils % (A) 79 %; Platelet Count 272 k/uL (150-450); Poikilocytosis Slight; RBC 4.76 m/uL (3.80-5.40); RDW 19.1 % (11.5-15.5); WBC 7.1 k/uL (3.8-10.6)
[2018-03-26] MEDS ORDERED: methylPREDNISolone SOD SUCCI 40 MG/ML 1 ML VIAL IV SCH (08:00)
[2018-03-26] MEDS: FUROSEMIDE 10 MG/ML 4 ML VIAL IV SCH ×2 (09:47→19:26)
[2018-03-26] MEDS: SPIRONOLACTONE 25 MG TAB PO SCH (09:47)
[2018-03-26] MEDS: DILTIAZEM ORAL 30 MG TAB PO SCH ×3 (09:47→19:26)
[2018-03-26] MEDS: ASPIRIN 81 MG PO SCH (09:47)
[2018-03-26] MEDS: METOPROLOL TARTRATE 50 MG TAB PO SCH (09:47)
[2018-03-26] MEDS: APIXABAN 5 MG TAB PO SCH ×2 (09:47→19:26)
[2018-03-26] MEDS: MULTIVITAMINS, THERA 1 EACH TAB PO SCH (09:48)
[2018-03-26 10:47] LABS: Iron Saturation 3.01 (12.00-45.00)
--- NOTE | 2018-03-26 13:02 | P.HPIM ---
History of Present Illness H&P Date: 03/25/18 Chief Complaint: Shortness of breath Patient is a 60-year-old female with a known history of CHF, asthma, atrial fibrillation on anticoagulation, hypertension and morbid obesity with BMI 71.9, COPD with oxygen dependent on 4 L at home presenting for shortness breath. Daughter's bedside and states that the patient has been in and out of rehab since July and has CHF and COPD. She states that over the last few days, the shortness of breath has been worsening and there is worsening lower extremity edema. The patient does not ambulate and states that she becomes short of breath when speaking but denies any chest pain, any abdominal pain, any coughing, any fevers/chills, any nausea/vomiting/diarrhea. Chest x-ray showed mild pulmonary vascular congestion. CHF should be considered. BNP 2370 Troponin 1 negative Previous echocardiogram on 01/25/2018 showed normal ejection fraction of 55-60% and borderline pulmonary hypertension with right ventricular systolic pressure 33.8 mm Hg Review of Systems Constitutional: Patient denies any fever or chills . No generalized weakness or weight loss. Abdomen: Patient denied nausea vomiting and diarrhea and abdominal pain. Cardiovascular: Patient denied any complaints of chest pain. Patient does have shortness of breath and leg swelling. No palpitations. Respiratory: patient denied any cough is from production. No shortness of breath Neurologic: Patient denied any numbness or tingling headache. Musculoskeletal: Patient denies any complaints of joint swelling or deformity. Skin: Negative Psychiatric: Negative Endocrine: No heat or cold intolerance. No recent weight gain. Genitourinary: No dysuria or hematuria. All other 14 point ROS negative except the above Past Medical History Past Medical History: Atrial Fibrillation, Asthma, Heart Failure, COPD, GI Bleed , Hypertension, Pneumonia Additional Past Medical History / Comment(s): clinical impression acute diverticulitis, cellulitis ll extremitis. 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 Past Anesthesia/Blood Transfusion Reactions: No Reported Reaction Additional Past Anesthesia/Blood Transfusion Reaction / Comment(s): clausterphobia, patient states it takes a long time to come out of anesthesia. Smoking Status: Former smoker - Past Family History Father Family Medical History: Eye Disorder, Osteoarthritis (OA) Additional Family Medical History / Comment(s): at age 92 from old age, had macular degeneration Mother Family Medical History: Coronary Artery Disease (CAD), Diabetes Mellitus, Hypertension, Renal Disease Additional Family Medical History / Comment(s): cabg, dialysis Medications and Allergies Home Medications Medication Instructions Recorded Confirmed Type Ipratropium-Albuterol Nebulize 3 ml INHALATION RT-QID 07/19/17 03/25/18 History [Duoneb 0.5 mg-3 mg/3 ml Soln] Spironolactone [Aldactone] 25 mg PO DAILY 01/24/18 03/25/18 History Acetaminophen Tab [Tylenol] 650 mg PO Q6HR PRN tab 02/01/18 03/25/18 Rx Diltiazem Oral [Cardizem*] 90 mg PO TID tab 02/01/18 03/25/18 Rx Apixaban [Eliquis] 5 mg PO BID 03/25/18 03/25/18 History Aspirin EC [Ecotrin Low Dose] 81 mg PO DAILY 03/25/18 03/25/18 History Bisacodyl [Dulcolax] 10 mg RECTAL DAILY PRN 03/25/18 03/25/18 History Fluticasone/Salmeterol [Advair 1 puff INHALATION RT-BID 03/25/18 03/25/18 History 250-50 Diskus] Furosemide [Lasix] 60 mg PO BID 03/25/18 03/25/18 History Ipratropium-Albuterol Nebulize 3 ml INHALATION RT-Q6H PRN 03/25/18 03/25/18 History [Duoneb 0.5 mg-3 mg/3 ml Soln] Magnesium Hydroxide [Milk of 2,400 mg PO DAILY PRN 03/25/18 03/25/18 History Magnesia] Metoprolol Tartrate [Lopressor] 100 mg PO DAILY 03/25/18 03/25/18 History Multivits,Th W-Ca,Fe,Oth Min 1 tab PO DAILY 03/25/18 03/25/18 History [Therapeutic M] Na Phos,M-B/Na Phos,Di-Ba [Fleet 133 ml RECTAL ONCE PRN 03/25/18 03/25/18 History Adult] Allergies Allergy/AdvReac Type Severity Reaction Status Date / Time No Known Allergies Allergy Verified 03/25/18 14:39 Physical Exam Vitals: Vital Signs Temp Pulse Pulse Resp BP BP Pulse Ox 03/25/18 21:15 97.9 F 106 H 36 H 138/77 100 03/25/18 20:29 98.1 F 102 H 18 128/73 94 L 03/25/18 19:50 98 18 132/92 93 L 03/25/18 18:14 97.9 F 106 H 36 H 138/77 100 03/25/18 17:40 93 24 120/66 84 L 03/25/18 16:20 28 H 03/25/18 15:23 77 28 H 115/70 97 03/25/18 15:13 80 03/25/18 15:06 68 03/25/18 13:58 97.7 F 85 28 H 103/56 83 L Intake and Output 03/25/18 03/25/18 03/26/18 14:59 22:59 06:59 Output Total 1000 Balance -1000 Output: Urine 1000 Other: Weight 181.437 kg 190 kg PHYSICAL EXAMINATION: Patient is lying in the bed comfortably, no acute distress, awake alert and oriented. Morbidly obese. HEENT: Normocephalic. Neck is supple. Pupils reactive. Nostrils clear. Oral cavity is moist. Ears reveal no drainage. Neck reveals no JVD, carotid bruits, or thyromegaly. CHEST EXAMINATION: Trachea is central. Symmetrical expansion. Bibasilar diminished air entry. Minimal rhonchi. Prolonged expiration. Lung plunkett clear to auscultation and percussion. CARDIAC: Normal S1, S2 with no gallops. No murmurs ABDOMEN: Soft. Bowel sounds normal. No organomegaly. No abdominal bruits. Extremities: 3+ edema. No clubbing or cyanosis. Chronic venous stasis changes Neurologically awake, alert, oriented x3 with well-coordinated movements. No focal deficits noted Skin: No rash or skin lesions. Psychiatric: Cooperative. Musculoskeletal: No joint swelling or deformity. Normal range of motion. Results CBC & Chem 7: 03/26/18 06:14 03/26/18 06:14 Labs: Abnormal Lab Results - Last 24 Hours (Table) 03/25/18 03/25/18 Range/Units 14:51 14:51 Hgb 10.3 L (11.4-16.0) gm/dL MCV 77.4 L (80.0-100.0) fL MCH 23.5 L (25.0-35.0) pg MCHC 30.3 L (31.0-37.0) g/dL RDW 19.3 H (11.5-15.5) % Chloride 91 L (98-107) mmol/L Carbon Dioxide 39 H (22-30) mmol/L BUN 39 H (7-17) mg/dL Glucose 131 H (74-99) mg/dL Total Protein 6.0 L (6.3-8.2) g/dL Albumin 3.3 L (3.5-5.0) g/dL Thrombosis Risk Factor Assmnt - DVT/VTE Prophylaxis DVT/VTE Prophylaxis: Pharmacologic Prophylaxis ordered - Choose All That Apply Any of the Below Risk Factors Present?: Yes Each Factor Represents 1 point: Abnormal pulmonary function (COPD), Obesity ( BMI >25) Other Risk Factors: Yes Each Risk Factor Represents 2 Points: Age 61-74 years, Patient confined to bed Other congenital or acquired thrombophilia - If yes, enter type in comment: No Thrombosis Risk Factor Assessment Total Risk Factor Score: 6 Thrombosis Risk Factor Assessment Level: High Risk Assessment and Plan Assessment: Acute on chronic hypoxic respiratory failure requiring BiPAP on admission Acute on chronic CHF with diastolic dysfunction ejection fraction 55-60% on 07/2018 Morbid obesity. Suspected obesity hypoventilation syndrome Borderline pulmonary hypertension Obstructive sleep apnea Atrial fibrillation with rapid ventricular rate. On anticoagulation at home in the form of Eliquis Hypertension Chronic kidney disease stage III Chronic bilateral lower activity edema and chronic venous stasis GERD and history of peptic ulcer disease Microcytic anemia Previous history of smoking History of MRSA pneumonia requiring mechanical ventilation and diverticulitis Morbid obesity BMI 73.8 Plan: Patient will be continued on BiPAP machine and gradually titrated down to nasal cannula. Continue with IV diuresis with Lasix and monitor renal function. Continue with the breathing treatments and home medications. Follow up closely. Further recommendations based on the clinical course. Prognosis is guarded with multiple medical problems and comorbid conditions. Discussed with her daughter at bedside in detail. Time with Patient: Greater than 30
[2018-03-26] MEDS: ACETAMINOPHEN TAB 325 MG TAB PO PRN (19:37)
--- NOTE | 2018-03-27 00:03 | P.PN ---
Subjective Progress Note Date: 03/26/18 Principal diagnosis: Acute CHF exacerbation Patient is a 60-year-old female with a known history of CHF, asthma, atrial fibrillation on anticoagulation, hypertension and morbid obesity with BMI 71.9, COPD with oxygen dependent on 4 L at home presenting for shortness breath. Daughter's bedside and states that the patient has been in and out of rehab since July and has CHF and COPD. She states that over the last few days, the shortness of breath has been worsening and there is worsening lower extremity edema. The patient does not ambulate and states that she becomes short of breath when speaking but denies any chest pain, any abdominal pain, any coughing, any fevers/chills, any nausea/vomiting/diarrhea. Chest x-ray showed mild pulmonary vascular congestion. CHF should be considered. BNP 2370 Troponin 1 negative Previous echocardiogram on 01/25/2018 showed normal ejection fraction of 55-60% and borderline pulmonary hypertension with right ventricular systolic pressure 33.8 mm Hg 03/26/2018 Patient is lying in the bed comfortable. Breathing status is slightly improved. Patient is saturating well on nasal cannula.. Otherwise continued on IV Lasix. Cardiology was consulted. Patient is tachycardic today. No complaints of nausea vomiting. No chest pain or shortness of breath. Leg swelling is improving slowly. No fever no chills. No nausea vomiting or abdominal pain. All other review of systems negative except the above. Active Medications Generic Name Dose Route Start Last Admin Trade Name Freq PRN Reason Stop Dose Admin Acetaminophen 650 mg 03/25/18 21:48 03/26/18 19:37 Tylenol Tab PO 650 mg Q6HR PRN Administration Fever and/ or Mild Pain Albuterol/Ipratropium 3 ml 03/25/18 21:48 03/26/18 23:15 Duoneb 0.5 Mg-3 Mg/3 Ml Soln INHALATION 3 ml RT-Q6H PRN Administration Shortness Of Breath Apixaban 5 mg 03/25/18 22:00 03/26/18 19:26 Eliquis PO 5 mg BID BARBER Administration Aspirin 81 mg 03/26/18 09:00 03/26/18 09:47 Aspirin PO 81 mg DAILY BARBER Administration Bisacodyl 10 mg 03/25/18 21:48 Dulcolax RECTAL DAILY PRN Constipation Diltiazem HCl 90 mg 03/25/18 22:00 03/26/18 19:26 Cardizem Oral PO 90 mg TID BARBER Administration Furosemide 40 mg 03/25/18 22:00 03/26/18 19:26 Lasix IV 40 mg Q12HR BARBER Administration Magnesium Hydroxide 2,400 mg 03/25/18 21:48 Milk Of Magnesia PO DAILY PRN Constipation Metoprolol Tartrate 100 mg 03/26/18 09:00 03/26/18 09:47 Lopressor PO 100 mg DAILY BARBER Administration Multivitamins 1 each 03/26/18 12:00 03/26/18 09:48 Theragran PO 1 each DAILY@1200 BARBER Administration Naloxone HCl 0.2 mg 03/25/18 17:30 Narcan IV Q2M PRN Opioid Reversal Sodium Biphosphate/Sodium Phosphate 133 ml 03/25/18 21:48 Fleet Adult RECTAL ONCE PRN Constipation Spironolactone 25 mg 03/26/18 09:00 03/26/18 09:47 Aldactone PO 25 mg DAILY BARBER Administration Objective - Vital Signs Vital signs: Vital Signs Temp 97.1 F L 03/26/18 19:49 Pulse 102 H 03/26/18 19:51 Resp 20 03/26/18 19:51 BP 110/68 03/26/18 19:49 Pulse Ox 90 L 03/26/18 19:49 Intake & Output 03/26/18 03/26/18 03/27/18 06:59 18:59 06:59 Intake Total 200 360 Output Total 900 Balance -700 360 Weight 195 kg Intake: Oral 200 360 Output: Urine 900 Other: Voiding Method Indwelling Catheter Indwelling Catheter Indwelling Catheter # Voids 1 # Bowel Movements 1 - Exam Patient is lying in the bed comfortably, no acute distress, awake alert and oriented. Morbidly obese. HEENT: Normocephalic. Neck is supple. Pupils reactive. Nostrils clear. Oral cavity is moist. Ears reveal no drainage. Neck reveals no JVD, carotid bruits, or thyromegaly. CHEST EXAMINATION: Trachea is central. Symmetrical expansion. Bibasilar diminished air entry. Minimal rhonchi. Prolonged expiration. Lung plunkett clear to auscultation and percussion. CARDIAC: Normal S1, S2 with no gallops. No murmurs ABDOMEN: Soft. Bowel sounds normal. No organomegaly. No abdominal bruits. Extremities: 3+ edema. No clubbing or cyanosis. Chronic venous stasis changes Neurologically awake, alert, oriented x3 with well-coordinated movements. No focal deficits noted Skin: No rash or skin lesions. Psychiatric: Cooperative. Musculoskeletal: No joint swelling or deformity. Normal range of motion. - Labs CBC & Chem 7: 18 06:14 18 06:14 Labs: Abnormal Lab Results - Last 24 Hours (Table) 18 03/26/18 Range/Units 06:14 06:14 Hgb 11.3 L (11.4-16.0) gm/dL MCV 77.7 L (80.0-100.0) fL MCH 23.8 L (25.0-35.0) pg MCHC 30.6 L (31.0-37.0) g/dL RDW 19.1 H (11.5-15.5) % Chloride 91 L (98-107) mmol/L Carbon Dioxide 39 H (22-30) mmol/L BUN 37 H (7-17) mg/dL Glucose 146 H (74-99) mg/dL Assessment and Plan Assessment: Acute on chronic hypoxic respiratory failure requiring BiPAP on admission. Currently on nasal cannula oxygen Acute on chronic CHF with diastolic dysfunction ejection fraction 55-60% on 07/2018 Morbid obesity. Suspected obesity hypoventilation syndrome Borderline pulmonary hypertension Obstructive sleep apnea Atrial fibrillation with rapid ventricular rate. On anticoagulation at home in the form of Eliquis Hypertension Chronic kidney disease stage III Chronic bilateral lower activity edema and chronic venous stasis GERD and history of peptic ulcer disease Microcytic anemia Previous history of smoking History of MRSA pneumonia requiring mechanical ventilation and diverticulitis Morbid obesity BMI 73.8 Plan: Patient will be continued on BiPAP machine when necessary. Oxygen therapy. Continue with IV diuresis with Lasix and monitor renal function. Continue with the breathing treatments and home medications. Follow up closely. Further recommendations based on the clinical course. Prognosis is guarded with multiple medical problems and comorbid conditions. Discussed with her daughter at bedside in detail. Time with Patient: Greater than 30
[2018-03-27 06:52] LABS: Calcium 10.1 mg/dL (8.4-10.2); Magnesium 2.3 mg/dL (1.6-2.3); Potassium 4.4 mmol/L (3.5-5.1)
[2018-03-27] MEDS: IPRATROPIUM-ALBUTEROL 3 ML NEB INHALATION PRN ×3 (08:08→20:25)
[2018-03-27] MEDS: FUROSEMIDE 10 MG/ML 4 ML VIAL IV SCH ×3 (08:58→22:58)
[2018-03-27] MEDS: APIXABAN 5 MG TAB PO SCH ×2 (08:59→19:37)
[2018-03-27] MEDS: ASPIRIN 81 MG PO SCH (08:59)
[2018-03-27] MEDS: DILTIAZEM ORAL 30 MG TAB PO SCH ×3 (08:59→19:37)
[2018-03-27] MEDS: MULTIVITAMINS, THERA 1 EACH TAB PO SCH (08:59)
[2018-03-27] MEDS: METOPROLOL TARTRATE 50 MG TAB PO SCH (08:59)
[2018-03-27] MEDS: SPIRONOLACTONE 25 MG TAB PO SCH ×2 (09:00→17:52)
--- NOTE | 2018-03-27 10:36 | P.CNPUL ---
History of Present Illness Consult date: 03/27/18 Reason for consult: dyspnea, other Chief complaint: Shortness of breath History of present illness: This is a 60-year-old female with morbid obesity, BMI of 71.9 chronic atrial fibrillation, chronic obstructive lung disease, chronic hypoxic respiratory failure, O2 dependent at 4 L nasal cannula, obstructive sleep apnea syndrome, on BiPAP, normally follows up with Dr. Bartlett in the office, and she was seen by him recently. The patient presented to the ER yesterday mostly with symptoms of increased shortness of breath, significant fluid retention in her legs, abdominal wall, and believes that her lungs are filling up. Patient also describes symptoms of intermittent cough, wheezing, orthopnea, and dyspnea even at rest more so when she lays flat. Patient denies any fever, no chills, no hemoptysis, no chest pain, no nausea no vomiting no abdominal pain, no melena, no hematemesis, no dysuria and no frequency no urgency. Review of Systems 14 point review of systems were obtained, please refer to pertinent positives in HPI, otherwise remaining systems are negative. Past Medical History Past Medical History: Atrial Fibrillation, Asthma, Heart Failure, COPD, GI Bleed , Hypertension, Pneumonia Additional Past Medical History / Comment(s): clinical impression acute diverticulitis, cellulitis ll extremitis. 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 Past Anesthesia/Blood Transfusion Reactions: No Reported Reaction Additional Past Anesthesia/Blood Transfusion Reaction / Comment(s): clausterphobia, patient states it takes a long time to come out of anesthesia. Smoking Status: Former smoker - Past Family History Father Family Medical History: Eye Disorder, Osteoarthritis (OA) Additional Family Medical History / Comment(s): at age 92 from old age, had macular degeneration Mother Family Medical History: Coronary Artery Disease (CAD), Diabetes Mellitus, Hypertension, Renal Disease Additional Family Medical History / Comment(s): cabg, dialysis Medications and Allergies Home Medications Medication Instructions Recorded Confirmed Type Ipratropium-Albuterol Nebulize 3 ml INHALATION RT-QID 07/19/17 03/25/18 History [Duoneb 0.5 mg-3 mg/3 ml Soln] Spironolactone [Aldactone] 25 mg PO DAILY 01/24/18 03/25/18 History Acetaminophen Tab [Tylenol] 650 mg PO Q6HR PRN tab 02/01/18 03/25/18 Rx Diltiazem Oral [Cardizem*] 90 mg PO TID tab 02/01/18 03/25/18 Rx Apixaban [Eliquis] 5 mg PO BID 03/25/18 03/25/18 History Aspirin EC [Ecotrin Low Dose] 81 mg PO DAILY 03/25/18 03/25/18 History Bisacodyl [Dulcolax] 10 mg RECTAL DAILY PRN 03/25/18 03/25/18 History Fluticasone/Salmeterol [Advair 1 puff INHALATION RT-BID 03/25/18 03/25/18 History 250-50 Diskus] Furosemide [Lasix] 60 mg PO BID 03/25/18 03/25/18 History Ipratropium-Albuterol Nebulize 3 ml INHALATION RT-Q6H PRN 03/25/18 03/25/18 History [Duoneb 0.5 mg-3 mg/3 ml Soln] Magnesium Hydroxide [Milk of 2,400 mg PO DAILY PRN 03/25/18 03/25/18 History Magnesia] Metoprolol Tartrate [Lopressor] 100 mg PO DAILY 03/25/18 03/25/18 History Multivits,Th W-Ca,Fe,Oth Min 1 tab PO DAILY 03/25/18 03/25/18 History [Therapeutic M] Na Phos,M-B/Na Phos,Di-Ba [Fleet 133 ml RECTAL ONCE PRN 03/25/18 03/25/18 History Adult] Allergies Allergy/AdvReac Type Severity Reaction Status Date / Time No Known Allergies Allergy Verified 03/25/18 14:39 Physical Exam Vitals: Vital Signs Temp Pulse Pulse Resp BP Pulse Ox 03/27/18 08:39 90 22 03/27/18 08:28 96 03/27/18 08:11 92 92 L 03/27/18 04:00 98.0 F 86 24 143/71 90 L 03/26/18 23:34 107 H 20 03/26/18 23:33 98.2 F 107 H 20 126/60 90 L 03/26/18 23:30 88 03/26/18 23:16 88 03/26/18 19:51 102 H 20 03/26/18 19:49 97.1 F L 102 H 20 110/68 90 L 03/26/18 16:00 97.5 F L 119 H 22 115/72 90 L 03/26/18 13:26 77 03/26/18 13:16 76 03/26/18 12:00 97.8 F 105 H 22 108/55 90 L Intake and Output 03/26/18 03/27/18 03/27/18 22:59 06:59 14:59 Intake Total 360 Balance 360 Intake: Oral 360 Other: Voiding Method Indwelling Catheter Indwelling Catheter Indwelling Catheter # Voids 1 700 Weight 193 kg Physical Exam: Revealed a 68-year-old female, morbidly obese, pleasant, in no distress at rest. On nasal cannula. Head: Atraumatic, normocephalic. HEENT: Large obese neck. [Neck is supple.] [No neck masses.] [No thyromegaly.] [No JVD.] Crowding of tissue in the oropharynx, narrow oropharynx, PERRLA, EOMI , no icterus. Moist mucous membranes. No carotid bruits. Chest: [Symmetrical expansion, trachea is in midline, extremely diminished breath sounds at the bases with minimal crackles, prolonged expiration, no chest wall tenderness.] Cardiac Exam: [Distant S1 and S2, no S3 gallop, no murmur.] Abdomen: Morbidly obese. [Soft, nontender, no megaly, no rebound, no guarding , normal bowel sounds.] Significant edema and swelling of the abdominal wall is noted. Extremities: [3+ bipedal edema, chronic venous stasis noted in both lower extremities. Diminished distal pulses. Psychiatric: Normal mood affect and mental status examination.] Neurological Exam: [No focal neurologic deficit. Lymphatics: No lymphadenopathy was appreciated. Musculoskeletal: Normal range of motion, no deformities or swelling noted.] Results - Laboratory Findings CBC and BMP: 03/26/18 06:14 03/27/18 06:12 PT/INR, D-dimer PT 10.4 sec (9.0-12.0) 03/25/18 14:51 INR 1.1 (<1.2) 03/25/18 14:51 Abnormal lab findings: Abnormal Labs 03/25/18 03/25/18 03/26/18 14:51 14:51 06:14 Hgb 10.3 L 11.3 L MCV 77.4 L 77.7 L MCH 23.5 L 23.8 L MCHC 30.3 L 30.6 L RDW 19.3 H 19.1 H Chloride 91 L Carbon Dioxide 39 H BUN 39 H Creatinine Glucose 131 H Total Protein 6.0 L Albumin 3.3 L 03/26/18 03/27/18 06:14 06:12 Hgb MCV MCH MCHC RDW Chloride 91 L 90 L Carbon Dioxide 39 H 42 H* BUN 37 H 45 H Creatinine 1.15 H Glucose 146 H 125 H Total Protein Albumin - Diagnostic Findings Chest x-ray: image reviewed (Poor quality chest x-ray, secondary to poor inspiratory effort, and secondary to morbid obesity and body habitus. However the chest x-ray is suggestive of interstitial edema.) Assessment and Plan Assessment: Impression: 1 acute on chronic hypoxic respiratory failure, multifactorial as noted below. 2 acute on chronic congestive heart failure, diastolic congestive heart failure in nature. Ejection fraction is normally 55-60%. 3 morbid obesity, obesity hypoventilation syndrome, obstructive sleep apnea syndrome. 4 pulmonary hypertension secondary to above 5 chronic atrial fibrillation 6 essential hypertension 7 chronic kidney disease stage III 8 suspect some component of COPD considering the patient's smoking history 9 morbid obesity BMI of 73.8 10 chronic cor pulmonale 11 chronic venous stasis of lower extremities Recommendation: Continue present treatment plan, continue bronchodilators, diuretics, BiPAP, oxygen, strict I's and O's, daily weights, BiPAP as needed, repeat chest x-ray in the next 24 hours, monitor electrolytes and renal profile on a daily basis. Prognosis is definitely poor and guarded. Time with Patient: Greater than 30
--- NOTE | 2018-03-27 12:11 | CONS ---
CONSULTATION CHIEF COMPLAINT: Shortness of breath. HISTORY OF PRESENT ILLNESS: Tanna is a 68-year-old lady with history of morbid obesity, chronic diastolic heart failure, chronic atrial fibrillation, COPD, hypertension, who comes to hospital complaining of shortness of breath. She is admitted with a diagnosis of CHF and COPD exacerbation and has had atrial fibrillation with somewhat of a poorly controlled ventricular rate. This morning, she is feeling better. She has been treated with IV diuretics with some improvement in her symptoms. Heart rate is better controlled on Cardizem 90 mg 3 times a day and Lopressor 100 mg. She is also on IV Lasix of 40 mg. She denies chest pain or palpitations. PAST MEDICAL HISTORY: Significant for COPD, CHF, hypertension. CURRENT MEDICATIONS: Include DuoNeb, Lasix 60 b.i.d., Cardizem 90 t.i.d., Lopressor 100 mg daily, Advair, aspirin, Eliquis, spironolactone and Tylenol. ALLERGIES: There are no known drug allergies. FAMILY HISTORY: Negative for premature coronary artery disease. SOCIAL HISTORY: Negative for current smoking, EtOH abuse, or drug abuse. REVIEW OF SYSTEMS: HEENT is unremarkable. Cardiac as described above. Respiratory as described above. GI negative. Genitourinary negative. Allergy/Immunology: Negative. Musculoskeletal significant for arthritis. Psychosocial negative. Endocrine: Negative. Derm: Negative. Constitutional: Negative. Oncological: Negative. HEMATOLOGICAL: Negative. Negative. Oncological negative rest. Rest of the system review is not relevant. PHYSICAL EXAM: On exam, comfortable at rest, O2 sat is 92% on 4 L. Heart rate is 90 beats per minute. Respiratory rate is 20. Afebrile. Chest exam reveals diminished air entry at the bases. Heart exam reveals first and second heart sounds, irregular rhythm and a systolic murmur at the left lower sternal border. Abdomen is soft. Exam of the extremities reveals bilateral pitting edema with chronic stasis changes. LABS: Show that the hemoglobin is 11.3, platelet count is 270. Potassium is 4.4, BUN is 45, creatinine is 1.1. BNP is elevated at 2370. An echocardiogram in the past showed normal LV systolic function. ASSESSMENT: 1. Acute exacerbation of chronic diastolic heart failure. 2. Chronic atrial fibrillation with poorly controlled ventricular rate. 3. Chronic obstructive pulmonary disease exacerbation. PLAN: Patient will continue aspirin, Eliquis, Cardizem, Lopressor, IV Lasix, and we will adjust the medications based on her response to therapies. MMODL / IJN: [id number] /
[2018-03-27] MEDS: ACETAMINOPHEN TAB 325 MG TAB PO PRN (19:37)
--- NOTE | 2018-03-27 23:03 | P.PN ---
Subjective Progress Note Date: 03/27/18 Principal diagnosis: Acute CHF exacerbation Patient is a 60-year-old female with a known history of CHF, asthma, atrial fibrillation on anticoagulation, hypertension and morbid obesity with BMI 71.9, COPD with oxygen dependent on 4 L at home presenting for shortness breath. Daughter's bedside and states that the patient has been in and out of rehab since July and has CHF and COPD. She states that over the last few days, the shortness of breath has been worsening and there is worsening lower extremity edema. The patient does not ambulate and states that she becomes short of breath when speaking but denies any chest pain, any abdominal pain, any coughing, any fevers/chills, any nausea/vomiting/diarrhea. Chest x-ray showed mild pulmonary vascular congestion. CHF should be considered. BNP 2370 Troponin 1 negative Previous echocardiogram on 01/25/2018 showed normal ejection fraction of 55-60% and borderline pulmonary hypertension with right ventricular systolic pressure 33.8 mm Hg 03/26/2018 Patient is lying in the bed comfortable. Breathing status is slightly improved. Patient is saturating well on nasal cannula.. Otherwise continued on IV Lasix. Cardiology was consulted. Patient is tachycardic today. No complaints of nausea vomiting. No chest pain or shortness of breath. Leg swelling is improving slowly. No fever no chills. No nausea vomiting or abdominal pain. All other review of systems negative except the above. 03/27/2018 Patient's breathing status is slightly improved. Otherwise still having leg syndrome and leg swelling. Heart rate is better controlled. Cardiology and pulmonary is following. Lasix dose has been increased to 40 mg every 8 hourly and spironolactone 25 mg twice a day. Creatinine increased to 1.15 Patient denied any complaints of chest pain. No nausea vomiting or abdominal pain. No fever no chills. Otherwise no acute overnight issues. All other review of systems negative except the above Active Medications Generic Name Dose Route Start Last Admin Trade Name Freq PRN Reason Stop Dose Admin Acetaminophen 650 mg 03/25/18 21:48 03/27/18 19:37 Tylenol Tab PO 650 mg Q6HR PRN Administration Fever and/ or Mild Pain Albuterol/Ipratropium 3 ml 03/25/18 21:48 03/27/18 20:25 Duoneb 0.5 Mg-3 Mg/3 Ml Soln INHALATION 3 ml RT-Q6H PRN Administration Shortness Of Breath Apixaban 5 mg 03/25/18 22:00 03/27/18 19:37 Eliquis PO 5 mg BID BARBER Administration Aspirin 81 mg 03/26/18 09:00 03/27/18 08:59 Aspirin PO 81 mg DAILY BARBER Administration Bisacodyl 10 mg 03/25/18 21:48 Dulcolax RECTAL DAILY PRN Constipation Diltiazem HCl 90 mg 03/25/18 22:00 03/27/18 19:37 Cardizem Oral PO 90 mg TID BARBER Administration Furosemide 40 mg 03/27/18 16:00 03/27/18 22:58 Lasix IV 40 mg Q8HR BARBER Administration Magnesium Hydroxide 2,400 mg 03/25/18 21:48 Milk Of Magnesia PO DAILY PRN Constipation Metoprolol Tartrate 100 mg 03/26/18 09:00 03/27/18 08:59 Lopressor PO 100 mg DAILY BARBER Administration Multivitamins 1 each 03/26/18 12:00 03/27/18 08:59 Theragran PO 1 each DAILY@1200 [facility]BER Administration Naloxone HCl 0.2 mg 03/25/18 17:30 Narcan IV Q2M PRN Opioid Reversal Sodium Biphosphate/Sodium Phosphate 133 ml 03/25/18 21:48 Fleet Adult RECTAL ONCE PRN Constipation Spironolactone 25 mg 03/27/18 16:00 03/27/18 17:52 Aldactone PO 25 mg BID@0900,1600 BARBER Administration Objective - Vital Signs Vital signs: Vital Signs Temp 97.4 F L 03/27/18 08:00 Pulse 92 03/27/18 13:50 Resp 22 03/27/18 12:00 BP 120/83 03/27/18 08:00 Pulse Ox 92 L 03/27/18 08:11 Intake & Output 03/26/18 03/27/18 03/27/18 18:59 06:59 18:59 Intake Total 360 Balance 360 Weight 193 kg Intake: Oral 360 Other: Voiding Method Indwelling Catheter Indwelling Catheter Indwelling Catheter # Voids 1 700 # Bowel Movements 1 - Exam Patient is lying in the bed comfortably, no acute distress, awake alert and oriented. Morbidly obese. HEENT: Normocephalic. Neck is supple. Pupils reactive. Nostrils clear. Oral cavity is moist. Ears reveal no drainage. Neck reveals no JVD, carotid bruits, or thyromegaly. CHEST EXAMINATION: Trachea is central. Symmetrical expansion. Bibasilar diminished air entry. Minimal rhonchi. Prolonged expiration. Lung plunkett clear to auscultation and percussion. CARDIAC: Normal S1, S2 with no gallops. No murmurs ABDOMEN: Soft. Bowel sounds normal. No organomegaly. No abdominal bruits. Extremities: 3+ edema. No clubbing or cyanosis. Chronic venous stasis changes Neurologically awake, alert, oriented x3 with well-coordinated movements. No focal deficits noted Skin: No rash or skin lesions. Psychiatric: Cooperative. Musculoskeletal: No joint swelling or deformity. Normal range of motion. - Labs CBC & Chem 7: 03/26/18 06:14 03/27/18 06:12 Labs: Abnormal Lab Results - Last 24 Hours (Table) 03/27/18 Range/Units 06:12 Chloride 90 L (98-107) mmol/L Carbon Dioxide 42 H* (22-30) mmol/L BUN 45 H (7-17) mg/dL Creatinine 1.15 H (0.52-1.04) mg/dL Glucose 125 H (74-99) mg/dL Assessment and Plan Assessment: Acute on chronic hypoxic respiratory failure requiring BiPAP on admission. Currently on nasal cannula oxygen Acute on chronic CHF with diastolic dysfunction ejection fraction 55-60% on 07/2018 Morbid obesity. Suspected obesity hypoventilation syndrome Borderline pulmonary hypertension Obstructive sleep apnea Atrial fibrillation with rapid ventricular rate. Rate controlled. On Cardizem and metoprolol. On anticoagulation at home in the form of Eliquis Hypertension Acute on Chronic kidney disease stage III Chronic bilateral lower activity edema and chronic venous stasis GERD and history of peptic ulcer disease Microcytic anemia Previous history of smoking History of MRSA pneumonia requiring mechanical ventilation and diverticulitis Morbid obesity BMI 73.8 Plan: Patient will be continued on BiPAP machine when necessary. Oxygen therapy. Continue with IV diuresis with Lasix and monitor renal function. Continue with the breathing treatments and home medications. Follow up closely. Further recommendations based on the clinical course. Prognosis is guarded with multiple medical problems and comorbid conditions. Discussed with her daughter at bedside in detail. Time with Patient: Greater than 30
[2018-03-28] MEDS: IPRATROPIUM-ALBUTEROL 3 ML NEB INHALATION PRN ×3 (07:48→19:05)
[2018-03-28] MEDS: FUROSEMIDE 10 MG/ML 4 ML VIAL IV SCH (09:12)
[2018-03-28] MEDS: SPIRONOLACTONE 25 MG TAB PO SCH ×2 (09:13→15:35)
[2018-03-28] MEDS: APIXABAN 5 MG TAB PO SCH ×2 (09:13→20:32)
[2018-03-28] MEDS: DILTIAZEM ORAL 30 MG TAB PO SCH ×3 (09:13→20:32)
[2018-03-28] MEDS: METOPROLOL TARTRATE 50 MG TAB PO SCH (09:13)
[2018-03-28] MEDS: ASPIRIN 81 MG PO SCH (09:13)
[2018-03-28] MEDS: MULTIVITAMINS, THERA 1 EACH TAB PO SCH (11:50)
--- NOTE | 2018-03-28 12:12 | P.PN ---
Subjective Tanna is very short of breath at rest. She is my patient and we just saw her last week. She has COPD exacerbation and pickwickian syndrome with preserved LV size and systolic function. Cardiac enzymes are normal. Atrial fibrillation is rate controlled On examination She is afebrile 96.7F, pulse rate in the 70s, blood pressure 129/68 mmHg Breath sounds are reduced bilaterally with bilateral rhonchi Heart sounds are distant Impression Severe lung disease with COPD exacerbation/bronchitis, acute Atrial fibrillation, persistent, rate controlled Normal LV size and function Morbid obesity Diastolic heart failure, mild, since the BUN and creatinine is already increasing with IV Lasix Hypertension Her main issue is pulmonary in nature, her blood pressure is well controlled, atrial fibrillation was well controlled, but she does retain fluid with predominantly right-sided failure On Lasix 40 mg every 8 over the weekend a BUN and creatinine is already begun to rise Suggest Change Lasix to 80 mg by mouth twice a day Watch kidney function Hospice care should be considered Objective - Vital Signs Vital signs: Vital Signs Temp 96.7 F L 03/28/18 11:40 Pulse 73 03/28/18 11:40 Resp 20 03/28/18 11:40 BP 96/62 03/28/18 11:40 Pulse Ox 91 L 03/28/18 11:40 Intake & Output 03/27/18 03/28/18 03/28/18 18:59 06:59 18:59 Intake Total 190 300 240 Output Total 2600 975 Balance -2410 -675 240 Intake: IV 10 Invasive Line 2 10 Oral 180 300 240 Output: Urine 2600 975 Other: Voiding Method Indwelling Catheter Indwelling Catheter Indwelling Catheter # Bowel Movements 1 - Labs CBC & Chem 7: 03/26/18 06:14 03/27/18 06:12 Labs: Abnormal Lab Results - Last 24 Hours (Table) 03/26/18 Range/Units 06:14 Iron 12 L (50-170) ug/dL Iron Saturation 3.01 L (12.00-45.00)
--- NOTE | 2018-03-28 14:00 | P.PN ---
Subjective Progress Note Date: 03/28/18 Principal diagnosis: Acute on chronic hypoxic respiratory failure, multifactorial, due to acute on chronic CHF, morbid obesity, pulmonary hypertension, chronic A. fib This is a 60-year-old female with morbid obesity, BMI of 71.9 chronic atrial fibrillation, chronic obstructive lung disease, chronic hypoxic respiratory failure, O2 dependent at 4 L nasal cannula, obstructive sleep apnea syndrome, on BiPAP, normally follows up with Dr. Bartlett in the office, and she was seen by him recently. The patient presented to the ER yesterday mostly with symptoms of increased shortness of breath, significant fluid retention in her legs, abdominal wall, and believes that her lungs are filling up. Patient also describes symptoms of intermittent cough, wheezing, orthopnea, and dyspnea even at rest more so when she lays flat. Patient denies any fever, no chills, no hemoptysis, no chest pain, no nausea no vomiting no abdominal pain, no melena, no hematemesis, no dysuria and no frequency no urgency. On 03/28/2018 patient seen in follow-up on selective care unit. She is resting comfortably in bed, denies any worsening dyspnea, pulse ox on 4 L per nasal cannula is 91-94%, vital signs are stable, she is afebrile, lung sounds are diminished, with a few end expiratory wheezes. No cough, no chest congestion, no chest wall discomfort. She did wear her BiPAP last night, with settings of 12 5 and 40%. Bilateral lower extremity edema is improved, no weeping, there are chronic changes of bilateral lower extremity venous insufficiency. Patient remains on oral Lasix at 80 mg twice a day, she continues on Apixaban for anticoagulation for A. fib, she is on oral Cardizem 90 mg 3 times a day, and Lopressor 100 mg daily. Denies any chest pain, denies any palpitations. She is in -675 ML fluid balance of last 24 hours. Objective - Vital Signs Vital signs: Vital Signs Temp 96.7 F L 03/28/18 11:40 Pulse 73 03/28/18 11:40 Resp 20 03/28/18 11:40 BP 96/62 03/28/18 11:40 Pulse Ox 91 L 03/28/18 11:40 Intake & Output 03/27/18 03/28/18 03/28/18 18:59 06:59 18:59 Intake Total 190 300 240 Output Total 2600 975 Balance -7230 -675 240 Intake: IV 10 Invasive Line 2 10 Oral 180 300 240 Output: Urine 2600 975 Other: Voiding Method Indwelling Catheter Indwelling Catheter Indwelling Catheter # Bowel Movements 1 - Exam Physical Exam: Revealed a 68-year-old female, morbidly obese, pleasant, in no distress at rest. On nasal cannula. Head: Atraumatic, normocephalic. HEENT: Large obese neck. [Neck is supple.] [No neck masses.] [No thyromegaly.] [No JVD.] Crowding of tissue in the oropharynx, narrow oropharynx, PERRLA, EOMI , no icterus. Moist mucous membranes. No carotid bruits. Chest: [Symmetrical expansion, trachea is in midline, extremely diminished breath sounds at the bases with a few end expiratory wheezes, prolonged expiration, no chest wall tenderness.] Cardiac Exam: [Distant S1 and S2, no S3 gallop, no murmur.] Abdomen: Morbidly obese. [Soft, nontender, no megaly, no rebound, no guarding , normal bowel sounds.] Significant edema and swelling of the abdominal wall is noted. Extremities: [3+ bipedal edema, chronic venous stasis noted in both lower extremities. Diminished distal pulses. Psychiatric: Normal mood affect and mental status examination.] Neurological Exam: [No focal neurologic deficit. Lymphatics: No lymphadenopathy was appreciated. Musculoskeletal: Normal range of motion, no deformities or swelling noted.] - Labs CBC & Chem 7: 03/26/18 06:14 03/27/18 06:12 Labs: Abnormal Lab Results - Last 24 Hours (Table) 03/26/18 Range/Units 06:14 Iron 12 L (50-170) ug/dL Iron Saturation 3.01 L (12.00-45.00) Assessment and Plan Plan: Assessment: 1 acute on chronic hypoxic respiratory failure, multifactorial as noted below. 2 acute on chronic congestive heart failure, diastolic congestive heart failure in nature. Ejection fraction is normally 55-60%. 3 morbid obesity, obesity hypoventilation syndrome, obstructive sleep apnea syndrome. 4 pulmonary hypertension secondary to above 5 chronic atrial fibrillation 6 essential hypertension 7 chronic kidney disease stage III 8 suspect some component of COPD considering the patient's smoking history 9 morbid obesity BMI of 73.8 10 chronic cor pulmonale 11 chronic venous stasis of lower extremities Recommendation: Continue oral diuretics, continue BiPAP support at bedtime and as needed during the day. Monitor renal profile and electrolytes. Continue nebulized bronchodilators as needed. Patient remains stable, continue to follow I performed a history & physical examination of the patient and discussed their management with my nurse practitioner, Maru Meyers. I reviewed the nurse practitioner's note and agree with the documented findings and plan of care. Lung sounds are diminished with end expiratory wheezes. The findings and the impression was discussed with the patient. I attest to the documentation by the nurse practitioner. Time with Patient: Less than 30
[2018-03-28] MEDS: FUROSEMIDE 80 MG TAB PO SCH (15:35)
[2018-03-28] MEDS ORDERED: FUROSEMIDE 10 MG/ML 4 ML VIAL IV SCH (20:00)
--- NOTE | 2018-03-29 | P.PN ---
Subjective Progress Note Date: 03/28/18 Principal diagnosis: Acute CHF exacerbation Patient is a 60-year-old female with a known history of CHF, asthma, atrial fibrillation on anticoagulation, hypertension and morbid obesity with BMI 71.9, COPD with oxygen dependent on 4 L at home presenting for shortness breath. Daughter's bedside and states that the patient has been in and out of rehab since July and has CHF and COPD. She states that over the last few days, the shortness of breath has been worsening and there is worsening lower extremity edema. The patient does not ambulate and states that she becomes short of breath when speaking but denies any chest pain, any abdominal pain, any coughing, any fevers/chills, any nausea/vomiting/diarrhea. Chest x-ray showed mild pulmonary vascular congestion. CHF should be considered. BNP 2370 Troponin 1 negative Previous echocardiogram on 01/25/2018 showed normal ejection fraction of 55-60% and borderline pulmonary hypertension with right ventricular systolic pressure 33.8 mm Hg 03/26/2018 Patient is lying in the bed comfortable. Breathing status is slightly improved. Patient is saturating well on nasal cannula.. Otherwise continued on IV Lasix. Cardiology was consulted. Patient is tachycardic today. No complaints of nausea vomiting. No chest pain or shortness of breath. Leg swelling is improving slowly. No fever no chills. No nausea vomiting or abdominal pain. All other review of systems negative except the above. 03/27/2018 Patient's breathing status is slightly improved. Otherwise still having leg syndrome and leg swelling. Heart rate is better controlled. Cardiology and pulmonary is following. Lasix dose has been increased to 40 mg every 8 hourly and spironolactone 25 mg twice a day. Creatinine increased to 1.15 Patient denied any complaints of chest pain. No nausea vomiting or abdominal pain. No fever no chills. Otherwise no acute overnight issues. 03/28/2018 Patient's breathing status is improving slowly. Otherwise still having bilateral lower activity swelling and chronic venous stasis changes. Currently saturating on nausea cannula at 4 L. Denied any chest pain. No fever no chills. Patient did use BiPAP last night. Lasix changed to 80 mg by mouth twice a day. Continued on spironolactone 25 mg twice a day.. Heart rate is better controlled. No other acute overnight issues. Follow-up renal function. Cardiology and pulmonary is following. All other review of systems negative except the above Active Medications Active Medications Generic Name Dose Route Start Last Admin Trade Name Freq PRN Reason Stop Dose Admin Acetaminophen 650 mg 03/25/18 21:48 03/27/18 19:37 Tylenol Tab PO 650 mg Q6HR PRN Administration Fever and/ or Mild Pain Albuterol/Ipratropium 3 ml 03/25/18 21:48 03/28/18 19:05 Duoneb 0.5 Mg-3 Mg/3 Ml Soln INHALATION 3 ml RT-Q6H PRN Administration Shortness Of Breath Apixaban 5 mg 03/25/18 22:00 03/28/18 20:32 Eliquis PO 5 mg BID BARBER Administration Aspirin 81 mg 03/26/18 09:00 03/28/18 09:13 Aspirin PO 81 mg DAILY BARBER Administration Bisacodyl 10 mg 03/25/18 21:48 Dulcolax RECTAL DAILY PRN Constipation Diltiazem HCl 90 mg 03/25/18 22:00 03/28/18 20:32 Cardizem Oral PO 90 mg TID BARBER Administration Furosemide 80 mg 03/28/18 16:00 03/28/18 15:35 Lasix PO 80 mg BID@0900,1600 [facility] Administration Magnesium Hydroxide 2,400 mg 03/25/18 21:48 Milk Of Magnesia PO DAILY PRN Constipation Metoprolol Tartrate 100 mg 03/26/18 09:00 03/28/18 09:13 Lopressor PO 100 mg DAILY BARBER Administration Multivitamins 1 each 03/26/18 12:00 03/28/18 11:50 Theragran PO 1 each DAILY@1200 [facility] Administration Naloxone HCl 0.2 mg 03/25/18 17:30 Narcan IV Q2M PRN Opioid Reversal Sodium Biphosphate/Sodium Phosphate 133 ml 03/25/18 21:48 Fleet Adult RECTAL ONCE PRN Constipation Spironolactone 25 mg 03/27/18 16:00 03/28/18 15:35 Aldactone PO 25 mg BID@0900,1600 BARBER Administration Objective - Vital Signs Vital signs: Vital Signs Temp 96.9 F L 03/28/18 15:32 Pulse 88 03/28/18 19:15 Resp 20 03/28/18 15:32 BP 109/66 03/28/18 15:32 Pulse Ox 92 L 03/28/18 15:32 Intake & Output 03/28/18 03/28/18 03/29/18 06:59 18:59 06:59 Intake Total 300 1040 Output Total 975 900 Balance -675 140 Intake: Oral 300 1040 Output: Urine 975 900 Other: Voiding Method Indwelling Catheter Indwelling Catheter - Exam Patient is lying in the bed comfortably, no acute distress, awake alert and oriented. Morbidly obese. HEENT: Normocephalic. Neck is supple. Pupils reactive. Nostrils clear. Oral cavity is moist. Ears reveal no drainage. Neck reveals no JVD, carotid bruits, or thyromegaly. CHEST EXAMINATION: Trachea is central. Symmetrical expansion. Bibasilar diminished air entry. Minimal rhonchi. Prolonged expiration. Lung plunkett clear to auscultation and percussion. CARDIAC: Normal S1, S2 with no gallops. No murmurs ABDOMEN: Soft. Bowel sounds normal. No organomegaly. No abdominal bruits. Extremities: 3+ edema. No clubbing or cyanosis. Chronic venous stasis changes Neurologically awake, alert, oriented x3 with well-coordinated movements. No focal deficits noted Skin: No rash or skin lesions. Psychiatric: Cooperative. Musculoskeletal: No joint swelling or deformity. Normal range of motion. - Labs CBC & Chem 7: 03/26/18 06:14 03/27/18 06:12 Labs: Abnormal Lab Results - Last 24 Hours (Table) 03/26/18 Range/Units 06:14 Iron 12 L (50-170) ug/dL Iron Saturation 3.01 L (12.00-45.00) Assessment and Plan Assessment: Acute on chronic hypoxic respiratory failure requiring BiPAP on admission. Multifactorial. Currently on nasal cannula oxygen Acute on chronic CHF with diastolic dysfunction ejection fraction 55-60% on 07/2018 Morbid obesity. Suspected obesity hypoventilation syndrome Borderline pulmonary hypertension Obstructive sleep apnea Atrial fibrillation with rapid ventricular rate. Rate controlled. On Cardizem and metoprolol. On anticoagulation at home in the form of Eliquis Hypertension Acute on Chronic kidney disease stage III Chronic bilateral lower activity edema and chronic venous stasis GERD and history of peptic ulcer disease Microcytic anemia Previous history of smoking History of MRSA pneumonia requiring mechanical ventilation and diverticulitis Morbid obesity BMI 73.8 Plan: Patient will be continued on BiPAP machine when necessary. Oxygen therapy. Continued with IV diuresis with Lasix , changed to oral.. Continue with the breathing treatments and home medications. Follow up closely. Further recommendations based on the clinical course. Prognosis is guarded with multiple medical problems and comorbid conditions. Time with Patient: Greater than 30
[2018-03-29 06:39] LABS: Anisocytosis Slight; Basophils % (A) 0 %; Eosinophils # (A) 0.1 k/uL (0-0.7); Eosinophils % (A) 1 %; HCT 35.7 % (34.0-46.0); HGB 10.8 gm/dL (11.4-16.0); Hypochromasia Marked; Lymphocytes # (A) 1.6 k/uL (1.0-4.8); Lymphocytes % (A) 15 %; MCH 23.9 pg (25.0-35.0); MCHC 30.4 g/dL (31.0-37.0); MCV 78.6 fL (80.0-100.0); Mean Platelet Volume 8.1; Microcytosis Slight; Monocytes # (A) 0.6 k/uL (0-1.0); Monocytes % (A) 6 %; Neutrophils # (A) 8.2 k/uL (1.3-7.7); Neutrophils % (A) 75 %; Platelet Count 200 k/uL (150-450); Poikilocytosis Slight; RBC 4.54 m/uL (3.80-5.40); WBC 10.9 k/uL (3.8-10.6)
[2018-03-29 06:47] LABS: Calcium 9.4 mg/dL (8.4-10.2); Potassium 4.1 mmol/L (3.5-5.1)
[2018-03-29] MEDS: IPRATROPIUM-ALBUTEROL 3 ML NEB INHALATION PRN ×3 (08:17→21:15)
[2018-03-29] MEDS: FUROSEMIDE 80 MG TAB PO SCH ×2 (09:34→16:40)
[2018-03-29] MEDS: SPIRONOLACTONE 25 MG TAB PO SCH ×2 (09:34→16:40)
[2018-03-29] MEDS: METOPROLOL TARTRATE 50 MG TAB PO SCH (09:34)
[2018-03-29] MEDS: ASPIRIN 81 MG PO SCH (09:35)
[2018-03-29] MEDS: DILTIAZEM ORAL 30 MG TAB PO SCH ×3 (09:35→20:07)
[2018-03-29] MEDS: APIXABAN 5 MG TAB PO SCH ×2 (09:35→20:07)
[2018-03-29] MEDS: MULTIVITAMINS, THERA 1 EACH TAB PO SCH (09:35)
--- NOTE | 2018-03-29 12:02 | P.PN ---
Subjective Progress Note Date: 03/29/18 Principal diagnosis: Acute on chronic hypoxic respiratory failure, multifactorial, due to acute and chronic exacerbation of diastolic congestive heart failure, morbid obesity, pulmonary hypertension, chronic atrial fibrillation. This is a 60-year-old female with morbid obesity, BMI of 71.9 chronic atrial fibrillation, chronic obstructive lung disease, chronic hypoxic respiratory failure, O2 dependent at 4 L nasal cannula, obstructive sleep apnea syndrome, on BiPAP, normally follows up with Dr. Bartlett in the office, and she was seen by him recently. The patient presented to the ER yesterday mostly with symptoms of increased shortness of breath, significant fluid retention in her legs, abdominal wall, and believes that her lungs are filling up. Patient also describes symptoms of intermittent cough, wheezing, orthopnea, and dyspnea even at rest more so when she lays flat. Patient denies any fever, no chills, no hemoptysis, no chest pain, no nausea no vomiting no abdominal pain, no melena, no hematemesis, no dysuria and no frequency no urgency. On 03/28/2018 patient seen in follow-up on selective care unit. She is resting comfortably in bed, denies any worsening dyspnea, pulse ox on 4 L per nasal cannula is 91-94%, vital signs are stable, she is afebrile, lung sounds are diminished, with a few end expiratory wheezes. No cough, no chest congestion, no chest wall discomfort. She did wear her BiPAP last night, with settings of 12 5 and 40%. Bilateral lower extremity edema is improved, no weeping, there are chronic changes of bilateral lower extremity venous insufficiency. Patient remains on oral Lasix at 80 mg twice a day, she continues on Apixaban for anticoagulation for A. fib, she is on oral Cardizem 90 mg 3 times a day, and Lopressor 100 mg daily. Denies any chest pain, denies any palpitations. She is in -675 ML fluid balance of last 24 hours. The patient is seen again today just 2017 in follow-up in the selective care unit. She is currently resting fairly comfortably in bed. She is awake and alert in no acute distress. She denies any worsening shortness of breath, cough or congestion. She is still requiring 6 L high flow nasal cannula to maintain O2 saturations in the 90s. She's been afebrile. Tachycardic. White count 10.9. Hemoglobin 10.8. Creatinine 1.06. Objective - Vital Signs Vital signs: Vital Signs Temp 97.8 F 03/29/18 09:36 Pulse 134 H 03/29/18 09:36 Resp 20 03/29/18 09:36 BP 117/73 03/29/18 09:36 Pulse Ox 92 L 03/29/18 09:36 Intake & Output 03/28/18 03/29/18 03/29/18 18:59 06:59 18:59 Intake Total 1040 360 Output Total 900 1700 600 Balance 140 -1700 -240 Weight 193 kg Intake: Oral 1040 360 Output: Urine 900 1700 600 Uretheral (Diop) 600 Other: Voiding Method Indwelling Catheter Indwelling Catheter Indwelling Catheter # Voids 0 - Exam Physical Exam: Revealed a 68-year-old female, morbidly obese, pleasant, in no distress at rest. On nasal cannula. Head: Atraumatic, normocephalic. HEENT: Large obese neck. [Neck is supple.] [No neck masses.] [No thyromegaly.] [No JVD.] Crowding of tissue in the oropharynx, narrow oropharynx, PERRLA, EOMI , no icterus. Moist mucous membranes. No carotid bruits. Chest: [Symmetrical expansion, trachea is in midline, extremely diminished breath sounds at the bases with a few end expiratory wheezes, prolonged expiration, no chest wall tenderness.] Cardiac Exam: [Distant S1 and S2, no S3 gallop, no murmur.] Abdomen: Morbidly obese. [Soft, nontender, no megaly, no rebound, no guarding , normal bowel sounds.] Significant edema and swelling of the abdominal wall is noted. Extremities: [3+ bipedal edema, chronic venous stasis noted in both lower extremities. Diminished distal pulses. Psychiatric: Normal mood affect and mental status examination.] Neurological Exam: [No focal neurologic deficit. Lymphatics: No lymphadenopathy was appreciated. Musculoskeletal: Normal range of motion, no deformities or swelling noted.] - Labs CBC & Chem 7: 03/29/18 05:25 03/29/18 05:25 Labs: Abnormal Lab Results - Last 24 Hours (Table) 03/29/18 03/29/18 Range/Units 05:25 05:25 WBC 10.9 H (3.8-10.6) k/uL Hgb 10.8 L (11.4-16.0) gm/dL MCV 78.6 L (80.0-100.0) fL MCH 23.9 L (25.0-35.0) pg MCHC 30.4 L (31.0-37.0) g/dL RDW 19.0 H (11.5-15.5) % Neutrophils # 8.2 H (1.3-7.7) k/uL Chloride 89 L (98-107) mmol/L Carbon Dioxide 39 H (22-30) mmol/L BUN 41 H (7-17) mg/dL Creatinine 1.06 H (0.52-1.04) mg/dL Assessment and Plan Assessment: Assessment: 1 acute on chronic hypoxic respiratory failure, multifactorial as noted below. 2 acute on chronic congestive heart failure, diastolic congestive heart failure in nature. Ejection fraction is normally 55-60%. 3 morbid obesity, obesity hypoventilation syndrome, obstructive sleep apnea syndrome. 4 pulmonary hypertension secondary to above 5 chronic atrial fibrillation 6 essential hypertension 7 chronic kidney disease stage III 8 suspect some component of COPD considering the patient's smoking history 9 morbid obesity BMI of 73.8 10 chronic cor pulmonale 11 chronic venous stasis of lower extremities Recommendation: The patient was seen and evaluated by Dr. Bartlett. She is currently stable from the pulmonary standpoint he could be discharged home on a prednisone taper and bronchodilators. Continue diuretics. Discharge planning is in place. Will continue to follow. I, the cosigning physician, performed a history & physical examination of the patient. Lungs sounds are clear. Managed. Maintaining good O2 saturations in the 90s on 6 liters per minute per nasal cannula. I discussed the assessment and plan of care with my nurse practitioner, Iveth Da Silva. I attest to the above note as dictated by her.
--- NOTE | 2018-03-29 14:17 | P.PN ---
Subjective Progress Note Date: 03/29/18 This is a 60-year-old female with morbid obesity, chronic persistent atrial fibrillation, chronic peripheral edema with venous stasis prior history of smoking, COPD, renal insufficiency, hypertension, nondiabetic. She presents to the hospital on this occasion with symptoms of progressively worsening shortness of breath. Patient had diuresed with IV Lasix, she also was found to be in A. fib with RVR. Heart rate is better controlled on current medications which include Cardizem 90 mg by mouth 3 times a day and metoprolol tartrate 100 mg daily. Currently on by mouth Lasix. Objective - Vital Signs Vital signs: Vital Signs Temp 97.5 F L 03/29/18 12:21 Pulse 134 H 03/29/18 12:21 Resp 20 03/29/18 12:21 BP 122/74 03/29/18 12:21 Pulse Ox 93 L 03/29/18 12:21 Intake & Output 03/28/18 03/29/18 03/29/18 18:59 06:59 18:59 Intake Total 1040 360 Output Total 900 1700 600 Balance 140 -1700 -240 Weight 193 kg Intake: Oral 1040 360 Output: Urine 900 1700 600 Uretheral (Diop) 600 Other: Voiding Method Indwelling Catheter Indwelling Catheter Indwelling Catheter # Voids 0 - Exam PHYSICAL EXAMINATION: This is a 68-year-old female, alert, oriented, in no apparent distress. Morbidly obese. HEENT: Head is atraumatic, normocephalic. Pupils equal, round. Neck is supple. There is no elevated jugular venous pressure. HEART EXAMINATION: Heart S1 and S2 irregularly irregular CHEST EXAMINATION: Lungs reveal diminished air entry to bilateral bases. ABDOMEN: Soft, obese, nontender. EXTREMITIES:[1+ peripheral pulses with significant bilateral peripheral edema, erythema and chronic skin changes noted bilaterally. NEUROLOGIC [atient is awake, alert and oriented -3.] . - Labs CBC & Chem 7: 03/29/18 05:25 03/29/18 05:25 Labs: Abnormal Lab Results - Last 24 Hours (Table) 03/29/18 03/29/18 Range/Units 05:25 05:25 WBC 10.9 H (3.8-10.6) k/uL Hgb 10.8 L (11.4-16.0) gm/dL MCV 78.6 L (80.0-100.0) fL MCH 23.9 L (25.0-35.0) pg MCHC 30.4 L (31.0-37.0) g/dL RDW 19.0 H (11.5-15.5) % Neutrophils # 8.2 H (1.3-7.7) k/uL Chloride 89 L (98-107) mmol/L Carbon Dioxide 39 H (22-30) mmol/L BUN 41 H (7-17) mg/dL Creatinine 1.06 H (0.52-1.04) mg/dL Assessment and Plan Plan: Assessment and plan #1 symptoms of progressively worsening shortness of breath, likely combination of diastolic congestive heart failure and COPD exacerbation. #2 atrial fibrillation with rapid ventricular response, patient has chronic persistent atrial fibrillation on Eliquis for anticoagulation #3 morbid obesity #4 severe bilateral cellulitis, chronic #5 acute on chronic renal insufficiency #6 hypertension #7 prior history of smoking #8 COPD Plan From cardiology's perspective, we'll continue the patient on her current medications. Follow-up appointment will be made in the office post discharge. DNP note has been reviewed, I agree with a documented findings and plan of care. Patient was seen and examined.
--- NOTE | 2018-03-29 15:25 | P.PN ---
Subjective Patient is a 60-year-old female with a known history of CHF, asthma, atrial fibrillation on anticoagulation, hypertension and morbid obesity with BMI 71.9, COPD with oxygen dependent on 4 L at home presenting for shortness breath. Daughter's bedside and states that the patient has been in and out of rehab since July and has CHF and COPD. She states that over the last few days, the shortness of breath has been worsening and there is worsening lower extremity edema. The patient does not ambulate and states that she becomes short of breath when speaking but denies any chest pain, any abdominal pain, any coughing, any fevers/chills, any nausea/vomiting/diarrhea. Chest x-ray showed mild pulmonary vascular congestion. CHF should be considered. BNP 2370 Troponin 1 negative Previous echocardiogram on 01/25/2018 showed normal ejection fraction of 55-60% and borderline pulmonary hypertension with right ventricular systolic pressure 33.8 mm Hg 03/26/2018 Patient is lying in the bed comfortable. Breathing status is slightly improved. Patient is saturating well on nasal cannula.. Otherwise continued on IV Lasix. Cardiology was consulted. Patient is tachycardic today. No complaints of nausea vomiting. No chest pain or shortness of breath. Leg swelling is improving slowly. No fever no chills. No nausea vomiting or abdominal pain. All other review of systems negative except the above. 03/27/2018 Patient's breathing status is slightly improved. Otherwise still having leg syndrome and leg swelling. Heart rate is better controlled. Cardiology and pulmonary is following. Lasix dose has been increased to 40 mg every 8 hourly and spironolactone 25 mg twice a day. Creatinine increased to 1.15 Patient denied any complaints of chest pain. No nausea vomiting or abdominal pain. No fever no chills. Otherwise no acute overnight issues. 03/28/2018 Patient's breathing status is improving slowly. Otherwise still having bilateral lower activity swelling and chronic venous stasis changes. Currently saturating on nausea cannula at 4 L. Denied any chest pain. No fever no chills. Patient did use BiPAP last night. Lasix changed to 80 mg by mouth twice a day. Continued on spironolactone 25 mg twice a day.. Heart rate is better controlled. No other acute overnight issues. Follow-up renal function. Cardiology and pulmonary is following. 03/29/2018 Patient is wheezing on exam patient is presently on 6 L of oxygen patient will be started on systemic steroids. Patient is still complaining of shortness of breath Constitutional: Denied any fatigue denied any fever. Cardio vascular: denied any chest pain, palpitations Gastrointestinal denied any nausea vomiting Pulmonary: As mentioned in HPI Neurologic denied any new focal deficits Objective - Vital Signs Vital signs: Vital Signs Temp 97.5 F L 03/29/18 12:21 Pulse 115 H 03/29/18 15:00 Resp 20 03/29/18 12:21 BP 122/74 03/29/18 12:21 Pulse Ox 91 L 03/29/18 15:00 Intake & Output 03/28/18 03/29/18 03/29/18 18:59 06:59 18:59 Intake Total 1040 720 Output Total 900 1700 600 Balance 140 -1700 120 Weight 193 kg Intake: Oral 1040 720 Output: Urine 900 1700 600 Uretheral (Diop) 600 Other: Voiding Method Indwelling Catheter Indwelling Catheter Indwelling Catheter # Voids 0 2 - Exam Exam Patient is lying in the bed comfortably, no acute distress, awake alert and oriented. Morbidly obese. HEENT: Normocephalic. Neck is supple. Pupils reactive. Nostrils clear. Oral cavity is moist. Ears reveal no drainage. Neck reveals no JVD, carotid bruits, or thyromegaly. CHEST EXAMINATION: Trachea is central. Symmetrical expansion. Bibasilar diminished air entry. Minimal rhonchi. Prolonged expiration. Lung plunkett clear to auscultation and percussion. Significant expiratory wheezing CARDIAC: Normal S1, S2 with no gallops. No murmurs ABDOMEN: Soft. Bowel sounds normal. No organomegaly. No abdominal bruits. Extremities: 3+ edema. No clubbing or cyanosis. Chronic venous stasis changes Neurologically awake, alert, oriented x3 with well-coordinated movements. No focal deficits noted Skin: No rash or skin lesions. Psychiatric: Cooperative. Musculoskeletal: No joint swelling or deformity. Normal range of motion. - Labs CBC & Chem 7: 03/29/18 05:25 03/29/18 05:25 Labs: Abnormal Lab Results - Last 24 Hours (Table) 03/29/18 03/29/18 Range/Units 05:25 05:25 WBC 10.9 H (3.8-10.6) k/uL Hgb 10.8 L (11.4-16.0) gm/dL MCV 78.6 L (80.0-100.0) fL MCH 23.9 L (25.0-35.0) pg MCHC 30.4 L (31.0-37.0) g/dL RDW 19.0 H (11.5-15.5) % Neutrophils # 8.2 H (1.3-7.7) k/uL Chloride 89 L (98-107) mmol/L Carbon Dioxide 39 H (22-30) mmol/L BUN 41 H (7-17) mg/dL Creatinine 1.06 H (0.52-1.04) mg/dL Assessment and Plan Plan: Assessment and Plan Assessment: Acute on chronic hypoxic respiratory failure requiring BiPAP on admission. Multifactorial. Currently on nasal cannula oxygen Acute on chronic CHF with diastolic dysfunction ejection fraction 55-60% on 07/2018 Morbid obesity. Suspected obesity hypoventilation syndrome, restrictive lung disease Borderline pulmonary hypertension Obstructive sleep apnea Atrial fibrillation with rapid ventricular rate. Rate controlled. On Cardizem and metoprolol. On anticoagulation at home in the form of Eliquis Hypertension Acute on Chronic kidney disease stage III Chronic bilateral lower activity edema and chronic venous stasis GERD and history of peptic ulcer disease Microcytic anemia Previous history of smoking History of MRSA pneumonia requiring mechanical ventilation and diverticulitis Morbid obesity BMI 73.8 Plan: Patient will be continued on BiPAP machine when necessary. Oxygen therapy. Continued with IV diuresis with Lasix , changed to oral.. Continue with the breathing treatments and home medications, systemic steroids. Follow up closely.
[2018-03-30 07:12] LABS: Anisocytosis Slight; HCT 35.6 % (34.0-46.0); Hypochromasia Marked; MCHC 30.8 g/dL (31.0-37.0); Mean Platelet Volume 7.9; Microcytosis Slight; Platelet Count 198 k/uL (150-450); Poikilocytosis Slight; RBC 4.57 m/uL (3.80-5.40); RDW 19.1 % (11.5-15.5); WBC 8.9 k/uL (3.8-10.6)
[2018-03-30 07:25] LABS: Calcium 9.8 mg/dL (8.4-10.2); Potassium 4.3 mmol/L (3.5-5.1)
[2018-03-30] MEDS: IPRATROPIUM-ALBUTEROL 3 ML NEB INHALATION PRN ×4 (08:22→19:58)
[2018-03-30] MEDS: DILTIAZEM ORAL 30 MG TAB PO SCH ×3 (09:39→20:51)
[2018-03-30] MEDS: APIXABAN 5 MG TAB PO SCH ×2 (09:39→20:51)
[2018-03-30] MEDS: ASPIRIN 81 MG PO SCH (09:39)
[2018-03-30] MEDS: MULTIVITAMINS, THERA 1 EACH TAB PO SCH (09:40)
[2018-03-30] MEDS: SPIRONOLACTONE 25 MG TAB PO SCH ×2 (09:40→16:21)
[2018-03-30] MEDS: METOPROLOL TARTRATE 50 MG TAB PO SCH (09:40)
[2018-03-30] MEDS: predniSONE 20 MG TAB PO SCH (09:40)
[2018-03-30] MEDS: FUROSEMIDE 80 MG TAB PO SCH ×2 (09:40→16:21)
[2018-03-30] MEDS: ACETAMINOPHEN TAB 325 MG TAB PO PRN (12:04)
--- NOTE | 2018-03-30 12:07 | P.PN ---
Subjective Progress Note Date: 03/30/18 Principal diagnosis: Acute on chronic hypoxic respiratory failure, multifactorial, due to acute on chronic CHF, morbid obesity, pulmonary hypertension, chronic A. fib This is a 60-year-old female with morbid obesity, BMI of 71.9 chronic atrial fibrillation, chronic obstructive lung disease, chronic hypoxic respiratory failure, O2 dependent at 4 L nasal cannula, obstructive sleep apnea syndrome, on BiPAP, normally follows up with Dr. Bartlett in the office, and she was seen by him recently. The patient presented to the ER yesterday mostly with symptoms of increased shortness of breath, significant fluid retention in her legs, abdominal wall, and believes that her lungs are filling up. Patient also describes symptoms of intermittent cough, wheezing, orthopnea, and dyspnea even at rest more so when she lays flat. Patient denies any fever, no chills, no hemoptysis, no chest pain, no nausea no vomiting no abdominal pain, no melena, no hematemesis, no dysuria and no frequency no urgency. On 03/28/2018 patient seen in follow-up on selective care unit. She is resting comfortably in bed, denies any worsening dyspnea, pulse ox on 4 L per nasal cannula is 91-94%, vital signs are stable, she is afebrile, lung sounds are diminished, with a few end expiratory wheezes. No cough, no chest congestion, no chest wall discomfort. She did wear her BiPAP last night, with settings of 12 5 and 40%. Bilateral lower extremity edema is improved, no weeping, there are chronic changes of bilateral lower extremity venous insufficiency. Patient remains on oral Lasix at 80 mg twice a day, she continues on Apixaban for anticoagulation for A. fib, she is on oral Cardizem 90 mg 3 times a day, and Lopressor 100 mg daily. Denies any chest pain, denies any palpitations. She is in -675 ML fluid balance of last 24 hours. On 03/30/2018 patient seen in follow-up on selective care unit. FiO2 is down to 4 L per nasal cannula, and this is what the patient wears at home. Pulse ox is 93%, patient did wear BiPAP support at night. Remains afebrile, hemodynamically stable. [place] any dyspnea, denies any chest pain. Lung sounds are clear to auscultation. She is now on oral diuretics, in the form of Lasix 80 mg twice daily, remains on Eliquis. Patient's Diop has been discontinued, and the patient has been mostly incontinent of urine. Physical therapy is working with the patient. Overall she remains stable, and from pulmonary standpoint she can be considered for discharge home today. Objective - Vital Signs Vital signs: Vital Signs Temp 97.7 F 03/30/18 09:30 Pulse 100 03/30/18 09:30 Resp 18 03/30/18 09:30 BP 133/72 03/30/18 09:30 Pulse Ox 93 L 03/30/18 09:30 Intake & Output 03/29/18 03/30/18 03/30/18 18:59 06:59 18:59 Intake Total 942 720 240 Output Total 600 0 Balance 342 720 240 Intake: Oral 942 720 240 Output: Urine 600 0 Uretheral (Diop) 600 Other: Voiding Method Incontinent Incontinent # Voids 2 0 2 - Exam Physical Exam: Revealed a 68-year-old female, morbidly obese, pleasant, in no distress at rest. On nasal cannula. Head: Atraumatic, normocephalic. HEENT: Large obese neck. [Neck is supple.] [No neck masses.] [No thyromegaly.] [No JVD.] Crowding of tissue in the oropharynx, narrow oropharynx, PERRLA, EOMI , no icterus. Moist mucous membranes. No carotid bruits. Chest: [Symmetrical expansion, trachea is in midline, lung sounds are clear to auscultation Cardiac Exam: [Distant S1 and S2, no S3 gallop, no murmur.] Abdomen: Morbidly obese. [Soft, nontender, no megaly, no rebound, no guarding , normal bowel sounds.] Significant edema and swelling of the abdominal wall is noted. Extremities: [3+ bipedal edema, chronic venous stasis noted in both lower extremities. Diminished distal pulses. Psychiatric: Normal mood affect and mental status examination.] Neurological Exam: [No focal neurologic deficit. Lymphatics: No lymphadenopathy was appreciated. Musculoskeletal: Normal range of motion, no deformities or swelling noted.] - Labs CBC & Chem 7: 03/30/18 06:41 03/30/18 06:41 Labs: Abnormal Lab Results - Last 24 Hours (Table) 03/30/18 03/30/18 Range/Units 06:41 06:41 Hgb 11.0 L (11.4-16.0) gm/dL MCV 78.0 L (80.0-100.0) fL MCH 24.0 L (25.0-35.0) pg MCHC 30.8 L (31.0-37.0) g/dL RDW 19.1 H (11.5-15.5) % Chloride 89 L (98-107) mmol/L Carbon Dioxide 42 H* (22-30) mmol/L BUN 38 H (7-17) mg/dL Assessment and Plan Plan: Assessment: 1 acute on chronic hypoxic respiratory failure, multifactorial as noted below. 2 acute on chronic congestive heart failure, diastolic congestive heart failure in nature. Ejection fraction is normally 55-60%. 3 morbid obesity, obesity hypoventilation syndrome, obstructive sleep apnea syndrome. 4 pulmonary hypertension secondary to above 5 chronic atrial fibrillation 6 essential hypertension 7 chronic kidney disease stage III 8 suspect some component of COPD considering the patient's smoking history 9 morbid obesity BMI of 73.8 10 chronic cor pulmonale 11 chronic venous stasis of lower extremities Recommendation: Continue oral diuretics, oral prednisone, nebulized bronchodilators. Increase activity as tolerated, pulmonary standpoint patient is improving, and is stable for discharge home today. I performed a history & physical examination of the patient and discussed their management with my nurse practitioner, Maru Meyers. I reviewed the nurse practitioner's note and agree with the documented findings and plan of care. Lung sounds are clear. The findings and the impression was discussed with the patient. I attest to the documentation by the nurse practitioner. Time with Patient: Less than 30
--- NOTE | 2018-03-30 17:21 | P.PN ---
Subjective Patient is a 60-year-old female with a known history of CHF, asthma, atrial fibrillation on anticoagulation, hypertension and morbid obesity with BMI 71.9, COPD with oxygen dependent on 4 L at home presenting for shortness breath. Daughter's bedside and states that the patient has been in and out of rehab since July and has CHF and COPD. She states that over the last few days, the shortness of breath has been worsening and there is worsening lower extremity edema. The patient does not ambulate and states that she becomes short of breath when speaking but denies any chest pain, any abdominal pain, any coughing, any fevers/chills, any nausea/vomiting/diarrhea. Chest x-ray showed mild pulmonary vascular congestion. CHF should be considered. BNP 2370 Troponin 1 negative Previous echocardiogram on 01/25/2018 showed normal ejection fraction of 55-60% and borderline pulmonary hypertension with right ventricular systolic pressure 33.8 mm Hg 03/26/2018 Patient is lying in the bed comfortable. Breathing status is slightly improved. Patient is saturating well on nasal cannula.. Otherwise continued on IV Lasix. Cardiology was consulted. Patient is tachycardic today. No complaints of nausea vomiting. No chest pain or shortness of breath. Leg swelling is improving slowly. No fever no chills. No nausea vomiting or abdominal pain. All other review of systems negative except the above. 03/27/2018 Patient's breathing status is slightly improved. Otherwise still having leg syndrome and leg swelling. Heart rate is better controlled. Cardiology and pulmonary is following. Lasix dose has been increased to 40 mg every 8 hourly and spironolactone 25 mg twice a day. Creatinine increased to 1.15 Patient denied any complaints of chest pain. No nausea vomiting or abdominal pain. No fever no chills. Otherwise no acute overnight issues. 03/28/2018 Patient's breathing status is improving slowly. Otherwise still having bilateral lower activity swelling and chronic venous stasis changes. Currently saturating on nausea cannula at 4 L. Denied any chest pain. No fever no chills. Patient did use BiPAP last night. Lasix changed to 80 mg by mouth twice a day. Continued on spironolactone 25 mg twice a day.. Heart rate is better controlled. No other acute overnight issues. Follow-up renal function. Cardiology and pulmonary is following. 03/29/2018 Patient is wheezing on exam patient is presently on 6 L of oxygen patient will be started on systemic steroids. 03/30/2018 Patient is feeling much better respiratory-askew, please refer to case assistant's dictation. Patient has to pay out of pocket which apparently she cannot afford to go to senior care. Patient wanted to go home with home care. Patient is extremely high risk for readmission because of her the testicle lung disease COPD and chronic diastolic dysfunction. Patient is on oral oral Lasix patient does have some Contraction alkalosis today Shortness of breath improved significantly compared to yesterday, still has wheezing Constitutional: Denied any fatigue denied any fever. Cardio vascular: denied any chest pain, palpitations Gastrointestinal denied any nausea vomiting Pulmonary: As mentioned in HPI Neurologic denied any new focal deficits Objective - Vital Signs Vital signs: Vital Signs Temp 97 F L 03/30/18 16:15 Pulse 105 H 03/30/18 16:15 Resp 16 03/30/18 16:15 BP 144/87 03/30/18 16:15 Pulse Ox 94 L 03/30/18 16:15 Intake & Output 03/29/18 03/30/18 03/30/18 18:59 06:59 18:59 Intake Total 942 720 462 Output Total 600 0 Balance 342 720 462 Intake: Oral 942 720 462 Output: Urine 600 0 Uretheral (Diop) 600 Other: Voiding Method Incontinent Incontinent Incontinent # Voids 2 0 2 - Exam Exam Patient is lying in the bed comfortably, no acute distress, awake alert and oriented. Morbidly obese. HEENT: Normocephalic. Neck is supple. Pupils reactive. Nostrils clear. Oral cavity is moist. Ears reveal no drainage. Neck reveals no JVD, carotid bruits, or thyromegaly. CHEST EXAMINATION: Trachea is central. Symmetrical expansion. Bibasilar diminished air entry. Minimal rhonchi. Prolonged expiration. Lung plunkett clear to auscultation and percussion. Significant expiratory wheezing CARDIAC: Normal S1, S2 with no gallops. No murmurs ABDOMEN: Soft. Bowel sounds normal. No organomegaly. No abdominal bruits. Extremities: 3+ edema. No clubbing or cyanosis. Chronic venous stasis changes Neurologically awake, alert, oriented x3 with well-coordinated movements. No focal deficits noted Skin: No rash or skin lesions. Psychiatric: Cooperative. Musculoskeletal: No joint swelling or deformity. Normal range of motion. - Labs CBC & Chem 7: 03/30/18 06:41 18 06:41 Labs: Abnormal Lab Results - Last 24 Hours (Table) 03/30/18 03/30/18 Range/Units 06:41 06:41 Hgb 11.0 L (11.4-16.0) gm/dL MCV 78.0 L (80.0-100.0) fL MCH 24.0 L (25.0-35.0) pg MCHC 30.8 L (31.0-37.0) g/dL RDW 19.1 H (11.5-15.5) % Chloride 89 L (98-107) mmol/L Carbon Dioxide 42 H* (22-30) mmol/L BUN 38 H (7-17) mg/dL Assessment and Plan Plan: Assessment and Plan Assessment: Acute on chronic hypoxic respiratory failure requiring BiPAP on admission. Multifactorial. Currently on nasal cannula oxygen Acute on chronic CHF with diastolic dysfunction ejection fraction 55-60% on 07/2018 patient is on oral Lasix today Morbid obesity. Suspected obesity hypoventilation syndrome, restrictive lung disease Borderline pulmonary hypertension Obstructive sleep apnea Atrial fibrillation with rapid ventricular rate. Rate controlled. On Cardizem and metoprolol. On anticoagulation at home in the form of Eliquis Hypertension Acute on Chronic kidney disease stage III Chronic bilateral lower activity edema and chronic venous stasis GERD and history of peptic ulcer disease Microcytic anemia Previous history of smoking History of MRSA pneumonia requiring mechanical ventilation and diverticulitis Morbid obesity BMI 73.8 Generalized deconditioning -Possibly of discharge tomorrow Plan: Patient will be continued on BiPAP machine when necessary. Oxygen therapy. Continued with IV diuresis with Lasix , changed to oral.. Continue with the breathing treatments and home medications, systemic steroids. Follow up closely.
[2018-03-31 07:16] LABS: Calcium 9.1 mg/dL (8.4-10.2); Potassium 4.6 mmol/L (3.5-5.1)
[2018-03-31] MEDS: IPRATROPIUM-ALBUTEROL 3 ML NEB INHALATION PRN ×2 (09:08→13:24)
[2018-03-31] MEDS: APIXABAN 5 MG TAB PO SCH ×2 (10:05→20:06)
[2018-03-31] MEDS: predniSONE 20 MG TAB PO SCH (10:06)
[2018-03-31] MEDS: METOPROLOL TARTRATE 50 MG TAB PO SCH (10:06)
[2018-03-31] MEDS: DILTIAZEM ORAL 30 MG TAB PO SCH ×3 (10:06→20:05)
[2018-03-31] MEDS: FUROSEMIDE 80 MG TAB PO SCH ×2 (10:06→15:57)
[2018-03-31] MEDS: ASPIRIN 81 MG PO SCH (10:06)
[2018-03-31] MEDS: MULTIVITAMINS, THERA 1 EACH TAB PO SCH (10:06)
[2018-03-31] MEDS: SPIRONOLACTONE 25 MG TAB PO SCH ×2 (10:07→15:57)
[2018-03-31 10:58] VITALS: RESP 16; TEMP 96.9
[2018-03-31 13:34] VITALS: BMI 73.0
--- NOTE | 2018-03-31 13:55 | P.PN ---
Subjective Progress Note Date: 03/31/18 Principal diagnosis: Acute on chronic hypoxic respiratory failure, multifactorial, due to acute on chronic CHF, morbid obesity, pulmonary hypertension, chronic A. fib This is a 60-year-old female with morbid obesity, BMI of 71.9 chronic atrial fibrillation, chronic obstructive lung disease, chronic hypoxic respiratory failure, O2 dependent at 4 L nasal cannula, obstructive sleep apnea syndrome, on BiPAP, normally follows up with Dr. Bartlett in the office, and she was seen by him recently. The patient presented to the ER yesterday mostly with symptoms of increased shortness of breath, significant fluid retention in her legs, abdominal wall, and believes that her lungs are filling up. Patient also describes symptoms of intermittent cough, wheezing, orthopnea, and dyspnea even at rest more so when she lays flat. Patient denies any fever, no chills, no hemoptysis, no chest pain, no nausea no vomiting no abdominal pain, no melena, no hematemesis, no dysuria and no frequency no urgency. On 03/28/2018 patient seen in follow-up on selective care unit. She is resting comfortably in bed, denies any worsening dyspnea, pulse ox on 4 L per nasal cannula is 91-94%, vital signs are stable, she is afebrile, lung sounds are diminished, with a few end expiratory wheezes. No cough, no chest congestion, no chest wall discomfort. She did wear her BiPAP last night, with settings of 12 5 and 40%. Bilateral lower extremity edema is improved, no weeping, there are chronic changes of bilateral lower extremity venous insufficiency. Patient remains on oral Lasix at 80 mg twice a day, she continues on Apixaban for anticoagulation for A. fib, she is on oral Cardizem 90 mg 3 times a day, and Lopressor 100 mg daily. Denies any chest pain, denies any palpitations. She is in -675 ML fluid balance of last 24 hours. On 03/30/2018 patient seen in follow-up on selective care unit. FiO2 is down to 4 L per nasal cannula, and this is what the patient wears at home. Pulse ox is 93%, patient did wear BiPAP support at night. Remains afebrile, hemodynamically stable. [place] any dyspnea, denies any chest pain. Lung sounds are clear to auscultation. She is now on oral diuretics, in the form of Lasix 80 mg twice daily, remains on Eliquis. Patient's Diop has been discontinued, and the patient has been mostly incontinent of urine. Physical therapy is working with the patient. Overall she remains stable, and from pulmonary standpoint she can be considered for discharge home today. On 03/31/2018 patient seen again in follow-up. No worsening dyspnea or chest pain. Pulse ox on 4 L per nasal cannula is 95%, patient is afebrile, vital signs are stable. She is in -1000 mL fluid balance over the last 24 hours. She is currently on oral diuretics with Lasix 80 mg twice daily. Lung sounds are generally diminished, with no rhonchi, rales or wheezes. No new chest x- rays, today's labs show sodium 140, potassium is 4.6, chloride 88, CO2 44, BUN of 42, creatinine 0.93. Wearing BiPAP support at night. Overall she's stable, no focal complaints, no acute events overnight. Patient stable for discharge home today Objective - Vital Signs Vital signs: Vital Signs Temp 96.9 F L 03/31/18 09:25 Pulse 100 03/31/18 13:39 Resp 16 03/31/18 11:40 BP 121/75 03/31/18 11:40 Pulse Ox 95 03/31/18 11:40 Intake & Output 03/30/18 03/31/18 03/31/18 18:59 06:59 18:59 Intake Total 702 300 Output Total 700 1000 Balance 702 -400 -1000 Weight 193 kg Intake: Oral 702 300 Output: Urine 700 1000 Other: Voiding Method Incontinent Incontinent Incontinent # Voids 2 1 - Exam Physical Exam: Revealed a 68-year-old female, morbidly obese, pleasant, in no distress at rest. On nasal cannula. Head: Atraumatic, normocephalic. HEENT: Large obese neck. [Neck is supple.] [No neck masses.] [No thyromegaly.] [No JVD.] Crowding of tissue in the oropharynx, narrow oropharynx, PERRLA, EOMI , no icterus. Moist mucous membranes. No carotid bruits. Chest: [Symmetrical expansion, trachea is in midline, lung sounds are clear to auscultation Cardiac Exam: [Distant S1 and S2, no S3 gallop, no murmur.] Abdomen: Morbidly obese. [Soft, nontender, no megaly, no rebound, no guarding , normal bowel sounds.] Significant edema and swelling of the abdominal wall is noted. Extremities: [2+ bipedal edema, chronic venous stasis noted in both lower extremities. Diminished distal pulses. Psychiatric: Normal mood affect and mental status examination.] Neurological Exam: [No focal neurologic deficit. Lymphatics: No lymphadenopathy was appreciated. Musculoskeletal: Normal range of motion, no deformities or swelling noted.] - Labs CBC & Chem 7: 03/30/18 06:41 03/31/18 06:47 Labs: Abnormal Lab Results - Last 24 Hours (Table) 03/31/18 Range/Units 06:47 Chloride 88 L (98-107) mmol/L Carbon Dioxide 44 H* (22-30) mmol/L BUN 42 H (7-17) mg/dL Assessment and Plan Plan: Assessment: 1 acute on chronic hypoxic respiratory failure, multifactorial as noted below. 2 acute on chronic congestive heart failure, diastolic congestive heart failure in nature. Ejection fraction is normally 55-60%. 3 morbid obesity, obesity hypoventilation syndrome, obstructive sleep apnea syndrome. 4 pulmonary hypertension secondary to above 5 chronic atrial fibrillation 6 essential hypertension 7 chronic kidney disease stage III 8 suspect some component of COPD considering the patient's smoking history 9 morbid obesity BMI of 73.8 10 chronic cor pulmonale 11 chronic venous stasis of lower extremities Recommendation: Patient continues to improve, increase activity as tolerated, tinea nebulized bronchodilators, continue BiPAP support at night and during the day is needed. From pulmonary standpoint patient is stable for discharge home today. I performed a history & physical examination of the patient and discussed their management with my nurse practitioner, Maru Meyers. I reviewed the nurse practitioner's note and agree with the documented findings and plan of care. Lung sounds are clear. The findings and the impression was discussed with the patient. I attest to the documentation by the nurse practitioner. Time with Patient: Less than 30
--- NOTE | 2018-03-31 15:03 | P.DS ---
Providers Date of admission: 03/25/18 17:31 Attending physician: Stephane Kwon Consults: 03/26/18 12:01 Consult Physician Routine Consulting Provider: Chula Abdi Consult Reason/Comments: CHF exacerbation Do you want consulting provider notified?: Yes 03/27/18 07:09 Consult Physician Routine Consulting Provider: Isaias Joshi Reason/Comments: copd Do you want consulting provider notified?: Yes Primary care physician: [place] Hospital Course: Patient is a 60-year-old female with a known history of CHF, asthma, atrial fibrillation on anticoagulation, hypertension and morbid obesity with BMI 71.9, COPD with oxygen dependent on 4 L at home presenting for shortness breath. Daughter's bedside and states that the patient has been in and out of rehab since July and has CHF and COPD. She states that over the last few days, the shortness of breath has been worsening and there is worsening lower extremity edema. The patient does not ambulate and states that she becomes short of breath when speaking but denies any chest pain, any abdominal pain, any coughing, any fevers/chills, any nausea/vomiting/diarrhea. Chest x-ray showed mild pulmonary vascular congestion. CHF should be considered. BNP 2370 Troponin 1 negative Previous echocardiogram on 01/25/2018 showed normal ejection fraction of 55-60% and borderline pulmonary hypertension with right ventricular systolic pressure 33.8 mm Hg 03/26/2018 Patient is lying in the bed comfortable. Breathing status is slightly improved. Patient is saturating well on nasal cannula.. Otherwise continued on IV Lasix. Cardiology was consulted. Patient is tachycardic today. No complaints of nausea vomiting. No chest pain or shortness of breath. Leg swelling is improving slowly. No fever no chills. No nausea vomiting or abdominal pain. All other review of systems negative except the above. 03/27/2018 Patient's breathing status is slightly improved. Otherwise still having leg syndrome and leg swelling. Heart rate is better controlled. Cardiology and pulmonary is following. Lasix dose has been increased to 40 mg every 8 hourly and spironolactone 25 mg twice a day. Creatinine increased to 1.15 Patient denied any complaints of chest pain. No nausea vomiting or abdominal pain. No fever no chills. Otherwise no acute overnight issues. 03/28/2018 Patient's breathing status is improving slowly. Otherwise still having bilateral lower activity swelling and chronic venous stasis changes. Currently saturating on nausea cannula at 4 L. Denied any chest pain. No fever no chills. Patient did use BiPAP last night. Lasix changed to 80 mg by mouth twice a day. Continued on spironolactone 25 mg twice a day.. Heart rate is better controlled. No other acute overnight issues. Follow-up renal function. Cardiology and pulmonary is following. 03/29/2018 Patient is wheezing on exam patient is presently on 6 L of oxygen patient will be started on systemic steroids. 03/30/2018 Patient is feeling much better respiratory-askew, please refer to rn case management's dictation. Patient has to pay out of pocket which apparently she cannot afford to go to [facility]. Patient wanted to go home with home care. Patient is extremely high risk for readmission because of her the testicle lung disease COPD and chronic diastolic dysfunction. Patient is on oral oral Lasix patient does have some Contraction alkalosis today 03/31/2018 Patient is at her baseline regarding her respiratory status. Patient is still wheezing. Definitely high risk for readmission because of her Chronic diastolic dysfunction morbid obesity restrictive lung disease as well as constrictive lung disease. Wheezing although improved significantly. will be discharged home with home care Patient is lying in the bed comfortably, no acute distress, awake alert and oriented. Morbidly obese. HEENT: Normocephalic. Neck is supple. Pupils reactive. Nostrils clear. Oral cavity is moist. Ears reveal no drainage. Neck reveals no JVD, carotid bruits, or thyromegaly. CHEST EXAMINATION: Trachea is central. Symmetrical expansion. Bibasilar diminished air entry. Minimal rhonchi. Prolonged expiration. Lung plunkett clear to auscultation minimal expiratory wheezing CARDIAC: Normal S1, S2 with no gallops. No murmurs ABDOMEN: Soft. Bowel sounds normal. No organomegaly. No abdominal bruits. Extremities: 3+ edema. No clubbing or cyanosis. Chronic venous stasis changes Neurologically awake, alert, oriented x3 with well-coordinated movements. No focal deficits noted Skin: No rash or skin lesions. Psychiatric: Cooperative. Musculoskeletal: No joint swelling or deformity. Normal range of motion. Acute on chronic hypoxic respiratory failure requiring BiPAP on admission. Multifactorial. Currently on nasal cannula oxygen 4 L patient uses for liters at home Acute on chronic CHF with diastolic dysfunction ejection fraction 55-60% on 07/2018 patient is on oral Lasix patient is euvolemic patient had exacerbation during this hospitalization Morbid obesity. Suspected obesity hypoventilation syndrome, restrictive lung disease Borderline pulmonary hypertension Obstructive sleep apnea Atrial fibrillation with rapid ventricular rate. Rate controlled. On Cardizem and metoprolol. On anticoagulation at home in the form of Eliquis Hypertension Acute on Chronic kidney disease stage III Chronic bilateral lower activity edema and chronic venous stasis GERD and history of peptic ulcer disease Microcytic anemia Previous history of smoking Generalized deconditioning Patient Condition at Discharge: Fair Plan - Discharge Summary Discharge Rx Participant: No New Discharge Prescriptions: New Budesonide-Formot 160-4.5 Mcg [Symbicort 160-4.5 Mcg Inhaler] 2 puff INHALATION BID #1 inhaler Furosemide [Lasix] 80 mg PO BID@0900,1600 #60 tab Ipratropium-Albuterol Nebulize [Duoneb 0.5 mg-3 mg/3 ml Soln] 3 ml INHALATION RT-Q6H PRN #90 ampul.neb PRN Reason: Shortness Of Breath predniSONE 10 mg PO DAILY #30 tab Spironolactone [Aldactone] 25 mg PO BID@0900,1600 #30 tab Continue Acetaminophen Tab [Tylenol] 650 mg PO Q6HR PRN #30 tab PRN Reason: Fever And/ Or Pain Apixaban [Eliquis] 5 mg PO BID #60 tab Aspirin EC [Ecotrin Low Dose] 81 mg PO DAILY #30 tablet. Bisacodyl [Dulcolax] 10 mg RECTAL DAILY PRN #30 supp PRN Reason: Constipation Diltiazem Oral [Cardizem*] 90 mg PO TID #90 tab Magnesium Hydroxide [Milk of Magnesia] 2,400 mg PO DAILY PRN #30 oral.susp PRN Reason: Constipation Changed Metoprolol Tartrate [Lopressor] 75 mg PO BID #60 tablet Discontinued Spironolactone [Aldactone] 25 mg PO DAILY Ipratropium-Albuterol Nebulize [Duoneb 0.5 mg-3 mg/3 ml Soln] 3 ml INHALATION RT-Q6H PRN PRN Reason: Shortness Of Breath No Action Ipratropium-Albuterol Nebulize [Duoneb 0.5 mg-3 mg/3 ml Soln] 3 ml INHALATION RT-QID Shirley Martinez-B/Na Phos,Di-Ba [Fleet Adult] 133 ml RECTAL ONCE PRN PRN Reason: Constipation Fluticasone/Salmeterol [Advair 250-50 Diskus] 1 puff INHALATION RT-BID Multivits,Th W-Ca,Fe,Oth Min [Therapeutic M] 1 tab PO DAILY Furosemide [Lasix] 60 mg PO BID Discharge Medication List Ipratropium-Albuterol Nebulize [Duoneb 0.5 mg-3 mg/3 ml Soln] 3 ml INHALATION RT -QID 07/19/17 [History] Fluticasone/Salmeterol [Advair 250-50 Diskus] 1 puff INHALATION RT-BID 03/25/18 [History] Furosemide [Lasix] 60 mg PO BID 03/25/18 [History] Multivits,Th W-Ca,Fe,Oth Min [Therapeutic M] 1 tab PO DAILY 03/25/18 [History] Na Phos,M-B/Na Phos,Di-Ba [Fleet Adult] 133 ml RECTAL ONCE PRN 03/25/18 [History ] Acetaminophen Tab [Tylenol] 650 mg PO Q6HR PRN #30 tab 03/31/18 [Rx] Apixaban [Eliquis] 5 mg PO BID #60 tab 03/31/18 [Rx] Aspirin EC [Ecotrin Low Dose] 81 mg PO DAILY #30 tablet. 03/31/18 [Rx] Bisacodyl [Dulcolax] 10 mg RECTAL DAILY PRN #30 supp 03/31/18 [Rx] Budesonide-Formot 160-4.5 Mcg [Symbicort 160-4.5 Mcg Inhaler] 2 puff INHALATION BID #1 inhaler 03/31/18 [Rx] Diltiazem Oral [Cardizem*] 90 mg PO TID #90 tab 03/31/18 [Rx] Furosemide [Lasix] 80 mg PO BID@0900,1600 #60 tab 03/31/18 [Rx] Ipratropium-Albuterol Nebulize [Duoneb 0.5 mg-3 mg/3 ml Soln] 3 ml INHALATION RT -Q6H PRN #90 ampul.neb 03/31/18 [Rx] Magnesium Hydroxide [Milk of Magnesia] 2,400 mg PO DAILY PRN #30 oral.susp 03/31 [Rx] Metoprolol Tartrate [Lopressor] 75 mg PO BID #60 tablet 03/31/18 [Rx] Spironolactone [Aldactone] 25 mg PO BID@0900,1600 #30 tab 03/31/18 [Rx] predniSONE 10 mg PO DAILY #30 tab 03/31/18 [Rx] Follow up Appointment(s)/Referral(s): Mike Child MD [STAFF PHYSICIAN] - As Needed (Appointment with Dr. Child has already been scheduled previously please keep that appointment) Catina Agee MD [Family Provider] - 04/07/18 2:00 pm () Patient Instructions/Handouts: COPD (Chronic Obstructive Pulmonary Disease) (DC ), Hypoxia (GEN) Activity/Diet/Wound Care/Special Instructions: Home Care - [facility] - [phone] Hospital Bed/[facility] - [phone] Discharge Disposition: HOME WITH HOME HEALTH SERVICES
[2018-03-31 20:10] VITALS: BP 132/84; PULSE 106
== END 2018-03-31 20:04 | disposition home health service (06) | DRG 291 ==
LOC: EC 13:57 → 6SEL 17:31
PROVIDERS: ADMIT Internal Medicine; ATTEND Internal Medicine
DX: I13.0 Hypertensive heart and chronic kidney disease with heart failure and stage 1 through stage 4 chronic kidney disease, or unspecified chronic kidney disease (principal); I50.33 Acute on chronic diastolic (congestive) heart failure; J96.21 Acute and chronic respiratory failure with hypoxia; J44.1 Chronic obstructive pulmonary disease with (acute) exacerbation; E66.2 Morbid (severe) obesity with alveolar hypoventilation; Z68.45 Body mass index [BMI] 70 or greater, adult; E87.3 Alkalosis; J44.0 Chronic obstructive pulmonary disease with (acute) lower respiratory infection; N17.9 Acute kidney failure, unspecified; L03.116 Cellulitis of left lower limb; L03.115 Cellulitis of right lower limb; H91.91 Unspecified hearing loss, right ear; N18.3 Chronic kidney disease, stage 3 (moderate); D50.9 Iron deficiency anemia, unspecified; I48.2 Chronic atrial fibrillation; I27.29 Other secondary pulmonary hypertension; I27.81 Cor pulmonale (chronic); K21.9 Gastro-esophageal reflux disease without esophagitis; K59.00 Constipation, unspecified; I87.8 Other specified disorders of veins; R32 Unspecified urinary incontinence; Z82.49 Family history of ischemic heart disease and other diseases of the circulatory system; Z84.1 Family history of disorders of kidney and ureter; Z83.3 Family history of diabetes mellitus; Z99.81 Dependence on supplemental oxygen; Z99.89 Dependence on other enabling machines and devices; Z79.899 Other long term (current) drug therapy; Z79.82 Long term (current) use of aspirin; Z79.01 Long term (current) use of anticoagulants; Z87.01 Personal history of pneumonia (recurrent); Z86.14 Personal history of Methicillin resistant Staphylococcus aureus infection; Z87.891 Personal history of nicotine dependence; Z87.11 Personal history of peptic ulcer disease; Z90.49 Acquired absence of other specified parts of digestive tract
CPT/HCPCS: 36415; 71045; 80048; 80053; 82728; 83540; 83550; 83735; 83880; 84484; 85025; 85027; 85610; 85730; 93005; 94640; 94660; 94760; 96365; 96375; 99214; 99285

== ENCOUNTER 2018-05-31 12:21 | Inpatient (IN) | payer MEDICARE, MEDICAID ==
[2018-05-31] MEDS ORDERED: IPRATROPIUM-ALBUTEROL 3 ML NEB INHALATION STA (13:07)
[2018-05-31] MEDS ORDERED: methylPREDNISolone SOD SUCCI 125 MG/2 ML VIAL IV STA (13:07)
--- NOTE | 2018-05-31 13:11 | ED ---
General Adult HPI - General Chief complaint: Shortness of Breath Stated complaint: Lethargic Time Seen by Provider: 05/31/18 12:54 Source: patient, RN notes reviewed Mode of arrival: ambulatory Limitations: no limitations - History of Present Illness Initial comments: Patient is a pleasant 68-year-old female presenting to the emergency department with difficulty breathing. Majority of history is taken from family. Patient has been less alert over the past few days. Patient has been somewhat short of breath. Occasional cough with clear sputum. No fevers. No chest pain. Patient does have a history of similar symptoms previously associated with COPD. Patient also has history of CHF. Patient's legs are swollen however this is fairly normal for her. No calf pain. - Related Data Home Medications Medication Instructions Recorded Confirmed Multivits,Th W-Ca,Fe,Oth Min 1 tab PO DAILY 03/25/18 05/31/18 [Therapeutic M] Acetaminophen [Tylenol] 1,500 mg PO Q4-6H PRN 05/31/18 05/31/18 Albuterol Nebulized [Ventolin 2.5 mg INHALATION RT-Q6H 05/31/18 05/31/18 Nebulized] Budesonide-Formot 160-4.5 Mcg 2 puff INHALATION RT-BID 05/31/18 05/31/18 [Symbicort 160-4.5 Mcg Inhaler] Diltiazem HCl 90 mg PO BID 05/31/18 05/31/18 Fexofenadine HCl [Sarita Allergy] 180 mg PO DAILY 05/31/18 05/31/18 Furosemide [Lasix] 80 mg PO BID 05/31/18 05/31/18 Metoprolol Tartrate [Lopressor] 75 mg PO BID 05/31/18 05/31/18 Spironolactone [Aldactone] 25 mg PO DAILY 05/31/18 05/31/18 predniSONE 20 mg PO DAILY 05/31/18 05/31/18 Previous Rx's Medication Instructions Recorded Apixaban [Eliquis] 5 mg PO BID #60 tab 03/31/18 Aspirin EC [Ecotrin Low Dose] 81 mg PO DAILY #30 tablet. 03/31/18 Allergies Allergy/AdvReac Type Severity Reaction Status Date / Time No Known Allergies Allergy Verified 05/31/18 12:56 Review of Systems ROS Statement: Those systems with pertinent positive or pertinent negative responses have been documented in the HPI. ROS Other: All systems not noted in ROS Statement are negative. Constitutional: Denies: fever Eyes: Denies: eye pain ENT: Denies: ear pain Respiratory: Reports: cough, dyspnea Cardiovascular: Denies: chest pain Endocrine: Reports: fatigue Gastrointestinal: Denies: abdominal pain Genitourinary: Denies: dysuria Musculoskeletal: Denies: back pain Skin: Denies: rash Neurological: Denies: headache Past Medical History Past Medical History: Atrial Fibrillation, Asthma, Heart Failure, COPD, GI Bleed , Hypertension, Pneumonia Additional Past Medical History / Comment(s): clinical impression acute diverticulitis, cellulitis ll extremitis. 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 Past Anesthesia/Blood Transfusion Reactions: No Reported Reaction Additional Past Anesthesia/Blood Transfusion Reaction / Comment(s): clausterphobia, patient states it takes a long time to come out of anesthesia. Past Psychological History: No Psychological Hx Reported Smoking Status: Former smoker Past Alcohol Use History: None Reported Past Drug Use History: None Reported - Past Family History Father Family Medical History: Eye Disorder, Osteoarthritis (OA) Additional Family Medical History / Comment(s): at age 92 from old age, had macular degeneration Mother Family Medical History: Coronary Artery Disease (CAD), Diabetes Mellitus, Hypertension, Renal Disease Additional Family Medical History / Comment(s): cabg, dialysis General Exam Limitations: no limitations General appearance: obese, other (Drowsy but easily arousable to voice) Head exam: Present: atraumatic Eye exam: Present: normal appearance ENT exam: Present: normal oropharynx Neck exam: Present: normal inspection Respiratory exam: Present: wheezes, decreased breath sounds Cardiovascular Exam: Present: irregular rhythm GI/Abdominal exam: Present: soft. Absent: tenderness Extremities exam: Present: pedal edema. Absent: calf tenderness Back exam: Present: normal inspection Neurological exam: Present: other (Drowsy but easily arousable to voice.) Psychiatric exam: Present: normal affect, normal mood Skin exam: Present: normal color Course Vital Signs 05/31/18 05/31/18 05/31/18 12:24 13:29 13:49 Temperature 98.2 F Pulse Rate 104 H 92 78 Respiratory 26 H 24 Rate Blood Pressure 149/83 126/78 O2 Sat by Pulse 84 L 91 L Oximetry 05/31/18 05/31/18 05/31/18 14:00 14:02 14:16 Temperature Pulse Rate 76 105 H Respiratory 18 Rate Blood Pressure 160/97 O2 Sat by Pulse 84 L 91 L Oximetry 05/31/18 15:18 Temperature Pulse Rate 93 Respiratory 24 Rate Blood Pressure 119/73 O2 Sat by Pulse 93 L Oximetry EKG Findings - EKG Comments: EKG Findings:: A. fib with rate of 97. QRS 82. QT 288. QTC 365. Right axis. Low QRS.. No acute ST change. Procedures - ABG Interpretation Ph: 7.35 PCO2: 82.7 PO2: 63.6 Medical Decision Making - Medical Decision Making Patient reevaluated and resting comfortably in bed. Patient has improved with BiPAP. Patient is sleeping and easily arousable to voice. Patient is more alert than upon presentation. BiPAP will be continued. Case was discussed in detail with Dr. Kwon, who will admit for hospital call. Pulmonary will be placed on consult. - Lab Data Result diagrams: 05/31/18 13:25 05/31/18 13:25 Lab Results 05/31/18 05/31/18 05/31/18 Range/Units 13:25 13:25 13:25 WBC 11.1 H (3.8-10.6) k/uL RBC 5.69 H (3.80-5.40) m/uL Hgb 13.7 (11.4-16.0) gm/dL Hct 46.4 H (34.0-46.0) % MCV 81.5 (80.0-100.0) fL MCH 24.1 L (25.0-35.0) pg MCHC 29.6 L (31.0-37.0) g/dL RDW 20.0 H (11.5-15.5) % Plt Count 207 (150-450) k/uL Neutrophils % 87 % Lymphocytes % 8 % Monocytes % 4 % Eosinophils % 0 % Basophils % 0 % Neutrophils # 9.7 H (1.3-7.7) k/uL Lymphocytes # 0.9 L (1.0-4.8) k/uL Monocytes # 0.4 (0-1.0) k/uL Eosinophils # 0.0 (0-0.7) k/uL Basophils # 0.0 (0-0.2) k/uL Hypochromasia Marked Poikilocytosis Slight Anisocytosis Slight Microcytosis Slight PT (9.0-12.0) sec INR (<1.2) APTT (22.0-30.0) sec Sample Site ABG pH (7.35-7.45) ABG pCO2 (35-45) mmHg ABG pO2 (83-108) mmHg ABG HCO3 (21-25) mmol/L ABG Total CO2 (19-24) mmol/L ABG O2 Saturation (94-97) % ABG Base Excess mmol/L Eulogio Test FiO2 % Sodium 140 (137-145) mmol/L Potassium 5.3 H (3.5-5.1) mmol/L Chloride 91 L (98-107) mmol/L Carbon Dioxide 43 H* (22-30) mmol/L Anion Gap 6 mmol/L BUN 64 H (7-17) mg/dL Creatinine 1.00 (0.52-1.04) mg/dL Est GFR (CKD-EPI)AfAm 67 (>60 ml/min/1.73 sqM) Est GFR (CKD-EPI)NonAf 58 (>60 ml/min/1.73 sqM) Glucose 135 H (74-99) mg/dL Calcium 10.8 H (8.4-10.2) mg/dL Total Bilirubin 0.4 (0.2-1.3) mg/dL AST 25 (14-36) U/L ALT 33 (9-52) U/L Alkaline Phosphatase 85 (38-126) U/L Total Creatine Kinase <20 L (30-135) U/L CK-MB (CK-2) 1.6 (0.0-2.4) ng/mL CK-MB (CK-2) Rel Index Troponin I 0.015 (0.000-0.034) ng/mL NT-Pro-B Natriuret Pep pg/mL Total Protein 7.3 (6.3-8.2) g/dL Albumin 4.0 (3.5-5.0) g/dL 05/31/18 05/31/18 05/31/18 Range/Units 13:25 13:25 13:49 WBC (3.8-10.6) k/uL RBC (3.80-5.40) m/uL Hgb (11.4-16.0) gm/dL Hct (34.0-46.0) % MCV (80.0-100.0) fL MCH (25.0-35.0) pg MCHC (31.0-37.0) g/dL RDW (11.5-15.5) % Plt Count (150-450) k/uL Neutrophils % % Lymphocytes % % Monocytes % % Eosinophils % % Basophils % % Neutrophils # (1.3-7.7) k/uL Lymphocytes # (1.0-4.8) k/uL Monocytes # (0-1.0) k/uL Eosinophils # (0-0.7) k/uL Basophils # (0-0.2) k/uL Hypochromasia Poikilocytosis Anisocytosis Microcytosis PT 10.3 (9.0-12.0) sec INR 1.1 (<1.2) APTT 23.3 (22.0-30.0) sec Sample Site rrad ABG pH 7.36 (7.35-7.45) ABG pCO2 83 H* (35-45) mmHg ABG pO2 64 L (83-108) mmHg ABG HCO3 47 H* (21-25) mmol/L ABG Total CO2 49 H (19-24) mmol/L ABG O2 Saturation 91.9 L (94-97) % ABG Base Excess 21.1 mmol/L Eulogio Test Yes FiO2 36 % Sodium (137-145) mmol/L Potassium (3.5-5.1) mmol/L Chloride (98-107) mmol/L Carbon Dioxide (22-30) mmol/L Anion Gap mmol/L BUN (7-17) mg/dL Creatinine (0.52-1.04) mg/dL Est GFR (CKD-EPI)AfAm (>60 ml/min/1.73 sqM) Est GFR (CKD-EPI)NonAf (>60 ml/min/1.73 sqM) Glucose (74-99) mg/dL Calcium (8.4-10.2) mg/dL Total Bilirubin (0.2-1.3) mg/dL AST (14-36) U/L ALT (9-52) U/L Alkaline Phosphatase (38-126) U/L Total Creatine Kinase (30-135) U/L CK-MB (CK-2) (0.0-2.4) ng/mL CK-MB (CK-2) Rel Index Troponin I (0.000-0.034) ng/mL NT-Pro-B Natriuret Pep 3510 pg/mL Total Protein (6.3-8.2) g/dL Albumin (3.5-5.0) g/dL - Radiology Data Radiology results: image reviewed (Chest x-ray does show some central venous congestion.) Critical Care Time Critical Care Time: Yes Total Critical Care Time: 32 Disposition Clinical Impression: COPD (chronic obstructive pulmonary disease), Acute respiratory failure Disposition: ADMITTED IP TO THIS [facility] Condition: Serious Referrals: Kirit Frye MD [Primary Care Provider] - 1-2 days Decision Time: 15:27
[2018-05-31 13:53] LABS: ABG Base Excess 21.1 mmol/L; ABG Oxygen Saturation 91.9 % (94-97); ABG PH 7.36 (7.35-7.45); ABG PO2 64 mmHg (83-108); ABG TCO2 49 mmol/L (19-24)
[2018-05-31 13:55] LABS: Anisocytosis Slight; Basophils % (A) 0 %; Eosinophils % (A) 0 %; HCT 46.4 % (34.0-46.0); HGB 13.7 gm/dL (11.4-16.0); Hypochromasia Marked; Lymphocytes # (A) 0.9 k/uL (1.0-4.8); Lymphocytes % (A) 8 %; MCH 24.1 pg (25.0-35.0); MCHC 29.6 g/dL (31.0-37.0); MCV 81.5 fL (80.0-100.0); Mean Platelet Volume 7.8; Microcytosis Slight; Monocytes # (A) 0.4 k/uL (0-1.0); Monocytes % (A) 4 %; Neutrophils # (A) 9.7 k/uL (1.3-7.7); Neutrophils % (A) 87 %; Platelet Count 207 k/uL (150-450); Poikilocytosis Slight; RBC 5.69 m/uL (3.80-5.40); WBC 11.1 k/uL (3.8-10.6)
[2018-05-31 13:57] LABS: ABG HCO3 47 mmol/L (21-25); ABG PCO2 83 mmHg (35-45)
[2018-05-31 14:02] LABS: Calcium 10.8 mg/dL (8.4-10.2); Potassium 5.3 mmol/L (3.5-5.1); Total Bilirubin 0.4 mg/dL (0.2-1.3); Total Protein 7.3 g/dL (6.3-8.2)
[2018-05-31 14:10] LABS: Creatine Kinase <20 U/L (30-135)
[2018-05-31 14:20] LABS: INR 1.1 (<1.2); Partial Thromboplastin Time 23.3 sec (22.0-30.0); Prothrombin Time 10.3 sec (9.0-12.0)
[2018-05-31 14:23] LABS: Creatine Kinase MB 1.6 ng/mL (0.0-2.4); Troponin I 0.015 ng/mL (0.000-0.034)
--- NOTE | 2018-05-31 14:24 | XR ---
EXAMINATION TYPE: XR chest 1V portable DATE OF EXAM: 05/31/2018 COMPARISON: 03/25/2018 HISTORY: Shortness of breath TECHNIQUE: Single frontal view of the chest is obtained. FINDINGS: Heart is enlarged and there is bilateral consolidation and small pleural effusion. Interst itial pattern noted. Atherosclerotic change aorta. Diffuse osteopenia. Arthropathy of the shoulders. IMPRESSION: 1. Bilateral consolidation and small effusion. Correlate for central venous congestion.
[2018-05-31] MEDS ORDERED: NALOXONE 0.4 MG/ML 1 ML VIAL IV PRN (15:28)
[2018-05-31] MEDS ORDERED: IPRATROPIUM-ALBUTEROL 3 ML NEB INHALATION PRN (15:29)
[2018-05-31] MEDS: IPRATROPIUM-ALBUTEROL 3 ML NEB INHALATION SCH ×2 (16:36→19:06)
[2018-05-31] MEDS ORDERED: ALPRAZolam 0.25 MG TAB PO PRN (19:29)
[2018-05-31] MEDS ORDERED: AZITHROMYCIN 500 MG in SODIUM CHLORIDE 0.9% 250 ML IVPB SCH (19:30)
[2018-05-31] MEDS: BUDESONIDE 1 MG/2 ML NEBU INHALATION SCH (19:50)
[2018-05-31] MEDS: FORMOTEROL FUMARATE 20 MCG/2 ML NEBU INHALATION SCH (19:50)
--- NOTE | 2018-05-31 20:16 | HP ---
HISTORY AND PHYSICAL CHIEF COMPLAINTS: Shortness of breath. HISTORY OF PRESENT ILLNESS: This 68-year-old woman with a past medical history of multiple medical problems, including history of CHF, atrial fibrillation, history of asthma, COPD, history of super morbid obesity, history of chronic respiratory failure, history of MRSA being followed Dr. Agee as well as from [facility], was complaining of shortness of breath over the past 4 days. Because of increased shortness of breath and cough and sputum, patient came to [facility], admitted for further evaluation and treatment. The patient was previously on CPAP; however, the patient was not sanctioned for CPAP for the last several weeks because of insurance reasons, according to the daughter. The chest x-ray showed possible bilateral consolidation pneumonia and the patient admitted for further evaluation and treatment. There is no history of fever, rigors, chills. No history of headache, loss of consciousness, seizures. PAST MEDICAL HISTORY: Atrial fibrillation, asthma, CHF, COPD, hypertension, pneumonia. MEDICATIONS PRIOR TO ADMISSION: Home medications are: 1. Lopressor 75 mg p.o. b.i.d. 2. Prednisone 20 mg daily. 3. Aldactone 25 mg daily. 4. Multivitamins 1 p.o. daily. 5. Lasix 80 mg p.o. b.i.d. 6. Sarita 180 mg p.o. daily. 7. Diltiazem 90 mg p.o. b.i.d. 8. Symbicort 160/4.5 two puffs b.i.d. 9. Ecotrin 81 mg p.o. daily. 10.Eliquis 5 mg p.o. b.i.d. 11.Ventolin 2.5 every 6 hours p.r.n. 12.Tylenol 1500 mg p.o. q.4 hours p.r.n. ALLERGIES: None. FAMILY HISTORY: History of DJD, history of eye disorder. SOCIAL HISTORY: Previous history of smoking. No history of current smoking or alcohol intake. REVIEW OF SYSTEMS: ENT: No diminished hearing, diminished vision. CARDIOVASCULAR: As mentioned earlier. RESPIRATORY: As mentioned earlier/ GI: No nausea or vomiting. : No dysuria. NERVOUS: No numbness or weakness. ALLERGY/IMMUNOLOGY: As mentioned earlier. MUSCULOSKELETAL: As mentioned earlier. HEMATOLOGY/ONCOLOGY: No history of anemia. ENDOCRINE: No history of diabetes, hypothyroidism. CONSTITUTIONAL: As mentioned earlier. DERMATOLOGY: Negative. RHEUMATOLOGY: Negative. PSYCHIATRY: As mentioned earlier. PHYSICAL EXAM: Patient is alert, oriented x3. Pulse is 106, blood pressure 123/72, respiration 20, temperature 98.2, pulse ox was 84% on room air. HEENT: Conjunctivae normal. Oral mucosa moist. NECK: Obese. Accessory muscles of respirations acting. CARDIOVASCULAR: S1, S2 muffled. No S3, S4. RESPIRATORY: Breath sounds diminished in the bases. A few scattered rhonchi and crackles. The patient is on BiPAP at this time. ABDOMEN: Soft, obese, nontender. No mass palpable. LEGS: Bilateral leg edema and chronic changes and excoriations also present. NERVOUS SYSTEM: Higher functions as mentioned earlier. Moves all 4 limbs. No focal motor or sensory deficits. LYMPHATIC: No lymphadenopathy in neck or axillae. SKIN: As mentioned earlier. JOINTS: No active deforming arthropathy. LAB STUDIES: WBC 7.1, hemoglobin is 13.7. ABGs: pH is 7.36 and pCO2 is 83, PO2 is 64, and potassium 5.3. ASSESSMENT: 1. Acute hypoxic hypercarbic respiratory failure, multifactorial, with congestive heart failure acute exacerbation, acute on chronic diastolic dysfunction, ejection fraction 50%-55% with pickwickian syndrome as well as restrictive lung disease. 2. Bibasilar pneumonia, possibly gram-negative. 3. Possible chronic obstructive pulmonary disease. 4. Increased WBC. 5. Super morbid obesity with BMI 65.2. 6. Hyperkalemia, mild. 7. History atrial fibrillation. 8. History of asthma. 9. History of gastrointestinal bleed. 10.History of pneumonia. 11.History of sepsis. 12.Chronic hypoxic respiratory failure. 13.Sleep apnea on CPAP at home. 14.History of methicillin-resistant Staphylococcus aureus. 15.History of cholecystectomy. 16.Remote history of nicotine dependence. RECOMMENDATIONS AND DISCUSSION: In this 68-year-old woman who presented with multiple complex medical issues and is extremely short of breath at this time, which could be multifactorial etiology contributed by possible obstructive lung disease, asthma, COPD as well as CHF, I would recommend continue the BiPAP, intensive bronchodilators and IV steroids, broad- spectrum IV antibiotics. Will consult Dr. Bartlett. Otherwise, obtain the cultures. I will also work with Social Work and supportive employment case manager to obtain CPAP at home to prevent further readmissions. Otherwise, overall prognosis guarded and home medications reviewed and will be continued. DVT prophylaxis. See orders for further details. Discussed with the family at length, who understands. Further recommendations to follow. MMODL / IJN: [id number] / CHRISTIANA
[2018-05-31] MEDS: cefTRIAXone IN SWFI 1,000 MG/10 ML SYRINGE IVP SCH (20:35)
[2018-05-31] MEDS: methylPREDNISolone SOD SUCCI 125 MG/2 ML VIAL IV SCH (20:35)
[2018-05-31] MEDS: METOPROLOL TARTRATE 25 MG TAB PO SCH (20:36)
[2018-05-31] MEDS: DILTIAZEM ORAL 30 MG TAB PO SCH ×2 (20:36→20:43)
[2018-05-31] MEDS: FUROSEMIDE 10 MG/ML 10 ML VIAL IV SCH (20:36)
[2018-05-31] MEDS: AZITHROMYCIN 500 MG in DEXTROSE 5% IN WATER 250 ML IVPB SCH ×2 (20:36)
[2018-05-31] MEDS: APIXABAN 5 MG TAB PO SCH (20:37)
[2018-05-31 20:51] LABS: Glucose,Whole Blood 134 mg/dL (75-99)
[2018-05-31] MEDS: SODIUM CHLORIDE 0.9% 1,000 ML IV SCH (22:21)
[2018-05-31] MEDS: INSULIN ASPART 100 UNIT/ML 1 ML 10 ML VIAL SQ SCH (22:22)
[2018-06-01] MEDS: FUROSEMIDE 10 MG/ML 10 ML VIAL IV SCH ×3 (01:34→15:48)
[2018-06-01] MEDS: methylPREDNISolone SOD SUCCI 125 MG/2 ML VIAL IV SCH ×4 (01:34→17:25)
[2018-06-01 06:22] LABS: Calcium 10.4 mg/dL (8.4-10.2); Potassium 4.6 mmol/L (3.5-5.1)
[2018-06-01 06:26] LABS: Glucose,Whole Blood 133 mg/dL (75-99)
[2018-06-01] MEDS: INSULIN ASPART 100 UNIT/ML 1 ML 10 ML VIAL SQ SCH ×4 (06:31→21:23)
[2018-06-01 06:32] LABS: Anisocytosis Slight; Basophils % (A) 0 %; Eosinophils % (A) 0 %; HCT 45.2 % (34.0-46.0); HGB 13.4 gm/dL (11.4-16.0); Hypochromasia Marked; Lymphocytes % (A) 16 %; MCH 24.2 pg (25.0-35.0); MCHC 29.7 g/dL (31.0-37.0); MCV 81.2 fL (80.0-100.0); Mean Platelet Volume 8.1; Microcytosis Slight; Monocytes # (A) 0.3 k/uL (0-1.0); Monocytes % (A) 4 %; Neutrophils # (A) 4.7 k/uL (1.3-7.7); Neutrophils % (A) 79 %; Platelet Count 222 k/uL (150-450); Poikilocytosis Slight; RBC 5.57 m/uL (3.80-5.40); RDW 19.8 % (11.5-15.5); WBC 5.9 k/uL (3.8-10.6)
[2018-06-01] MEDS: BUDESONIDE 1 MG/2 ML NEBU INHALATION SCH ×2 (07:02→19:27)
[2018-06-01] MEDS: FORMOTEROL FUMARATE 20 MCG/2 ML NEBU INHALATION SCH ×2 (07:02→19:27)
[2018-06-01] MEDS: IPRATROPIUM-ALBUTEROL 3 ML NEB INHALATION SCH ×4 (07:02→19:27)
[2018-06-01] MEDS: PANTOPRAZOLE 40 MG TABLET PO SCH (08:15)
[2018-06-01] MEDS: ASPIRIN 81 MG PO SCH (08:16)
[2018-06-01] MEDS: APIXABAN 5 MG TAB PO SCH ×2 (08:16→21:22)
[2018-06-01] MEDS: METOPROLOL TARTRATE 25 MG TAB PO SCH ×2 (08:17→21:22)
[2018-06-01] MEDS: LORATADINE 10 MG TAB PO SCH (08:17)
[2018-06-01] MEDS: DILTIAZEM ORAL 30 MG TAB PO SCH ×2 (08:17→21:22)
[2018-06-01] MEDS: SPIRONOLACTONE 25 MG TAB PO SCH (08:17)
[2018-06-01] MEDS: cefTRIAXone IN SWFI 1,000 MG/10 ML SYRINGE IVP SCH (10:28)
--- NOTE | 2018-06-01 11:00 | P.CNPUL ---
History of Present Illness Consult date: 06/01/18 Reason for consult: dyspnea, hypoxemia, pulmonary hypertension, obstructive sleep apnea, other Chief complaint: Shortness of breath, hypoxemic and hypercapnic respiratory failure History of present illness: Pulmonary consult dated 06/01/2018 This 68-year-old female who presents to the emergency department with complaints of difficulty breathing. The history is mostly obtained from the family members. The patient comes in with significant somnolence and lethargy. This apparently has been occurring over the last few days. She has a prior history of hypoxemic and hypercapnic respiratory failure requiring hospitalization at this facility. She apparently does complain about being short of breath. Today in the room, we really cannot get significant history. She is very difficult to arouse. She apparently has occasional cough with clear sputum production. There is no fevers or chills. No chest pain. No chest discomfort. The patient does have a history of CHF and apparently the chest x-ray does show evidence of heart failure. In addition, she has significant lower extremities edema. Likely her shortness of breath is multifactorial in part related to underlying CHF but also to significant right- sided heart failure related to either pickwickian syndrome and/or sleep apnea syndrome. I'm sure she likely has cor pulmonale and pulmonary hypertension and lower extremity edema. The patient also has a history of atrial fibrillation chronic bronchial asthma COPD GI bleed hypertension pneumonia heart failure diverticular disease cellulitis chronic hypoxemic respiratory failure and while no ulcer. Review of Systems ROS unobtainable: due to mental status Past Medical History Past Medical History: Atrial Fibrillation, Asthma, Heart Failure, COPD, GI Bleed , Hypertension, Pneumonia Additional Past Medical History / Comment(s): past hx sepsis,acute diverticulitis, home O2- 4 liters n/c, duodenal ulcer, hx alex lower leg cellulitis, intubated in Oct 2017 for COPD exacerbation, mrsa, c diff at [place]. 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 Smoking Status: Former smoker - Past Family History Father Family Medical History: Eye Disorder, Osteoarthritis (OA) Additional Family Medical History / Comment(s): at age 92 from old age, had macular degeneration Mother Family Medical History: Coronary Artery Disease (CAD), Diabetes Mellitus, Hypertension, Renal Disease Additional Family Medical History / Comment(s): cabg, dialysis Medications and Allergies Home Medications Medication Instructions Recorded Confirmed Type Multivits,Th W-Ca,Fe,Oth Min 1 tab PO DAILY 03/25/18 05/31/18 History [Therapeutic M] Apixaban [Eliquis] 5 mg PO BID #60 tab 03/31/18 05/31/18 Rx Aspirin EC [Ecotrin Low Dose] 81 mg PO DAILY #30 tablet. 03/31/18 05/31/18 Rx Acetaminophen [Tylenol] 1,500 mg PO Q4-6H PRN 05/31/18 05/31/18 History Albuterol Nebulized [Ventolin 2.5 mg INHALATION RT-Q6H 05/31/18 05/31/18 History Nebulized] Budesonide-Formot 160-4.5 Mcg 2 puff INHALATION RT-BID 05/31/18 05/31/18 History [Symbicort 160-4.5 Mcg Inhaler] Diltiazem HCl 90 mg PO BID 05/31/18 05/31/18 History Fexofenadine HCl [Sarita Allergy] 180 mg PO DAILY 05/31/18 05/31/18 History Furosemide [Lasix] 80 mg PO BID 05/31/18 05/31/18 History Metoprolol Tartrate [Lopressor] 75 mg PO BID 05/31/18 05/31/18 History Spironolactone [Aldactone] 25 mg PO DAILY 05/31/18 05/31/18 History predniSONE 20 mg PO DAILY 05/31/18 05/31/18 History Allergies Allergy/AdvReac Type Severity Reaction Status Date / Time No Known Allergies Allergy Verified 05/31/18 12:56 Physical Exam Osteopathic Statement: *. No significant issues noted on an osteopathic structural exam other than those noted in the History and Physical/Consult. Vitals: Vital Signs Temp Pulse Pulse Resp BP BP Pulse Ox 06/01/18 08:00 97.2 F L 132 H 22 118/52 88 L 06/01/18 07:21 104 H 06/01/18 07:14 100 06/01/18 07:13 102 H 06/01/18 07:03 100 06/01/18 04:53 97.6 F 95 29 H 132/76 06/01/18 00:08 89 34 H 122/80 94 L 05/31/18 20:30 97.8 F 91 37 H 126/64 95 05/31/18 19:17 98.2 F 106 H 18 123/72 95 05/31/18 19:06 126 H 05/31/18 16:50 94 05/31/18 16:36 103 H 05/31/18 15:18 93 24 119/73 93 L 05/31/18 14:16 91 L 05/31/18 14:02 105 H 18 160/97 84 L 05/31/18 14:00 76 05/31/18 13:49 78 05/31/18 13:29 92 24 126/78 91 L 05/31/18 12:24 98.2 F 104 H 26 H 149/83 84 L Intake and Output 05/31/18 06/01/18 06/01/18 22:59 06:59 14:59 Intake Total 180 Output Total 1050 Balance -1050 180 Intake: Oral 180 Output: Urine 1050 Other: Weight 170 kg Patient is very sleepy and very difficult to arouse. She was lethargic and somnolent. BiPAP mask in place. HEENT examination is grossly unremarkable. Mucous membranes are moist. Neck supple. Full range of motion. No adenopathy thyromegaly or neck vein distention. Cardiovascular examination reveals irregular rhythm and rate. S1-S2 normal. No S3 or S4. No discernible murmur noted. Heart sounds are very distant. Lungs reveal coarse bilateral breath sounds. By basilar crackles are appreciated. Breath sounds are severely diminished throughout. There are equal bilaterally. No wheezes appreciated. Abdomen soft bowel sounds are heard. No masses or tenderness. Extremities are intact. Significant lower extremity edema is noted. No clubbing or cyanosis. Skin is without rash or lesion. Neurologic examination is difficult to assess. Results - Laboratory Findings CBC and BMP: 06/01/18 05:36 06/01/18 05:36 ABG ABG pH 7.36 (7.35-7.45) 05/31/18 13:49 ABG pCO2 83 mmHg (35-45) H* 05/31/18 13:49 ABG pO2 64 mmHg (83-108) L 05/31/18 13:49 ABG O2 Saturation 91.9 % (94-97) L 05/31/18 13:49 PT/INR, D-dimer PT 10.3 sec (9.0-12.0) 05/31/18 13:25 INR 1.1 (<1.2) 05/31/18 13:25 Abnormal lab findings: Abnormal Labs 05/31/18 05/31/18 05/31/18 13:25 13:25 13:25 WBC 11.1 H RBC 5.69 H Hct 46.4 H MCH 24.1 L MCHC 29.6 L RDW 20.0 H Neutrophils # 9.7 H Lymphocytes # 0.9 L ABG pCO2 ABG pO2 ABG HCO3 ABG Total CO2 ABG O2 Saturation Potassium 5.3 H Chloride 91 L Carbon Dioxide 43 H* BUN 64 H Creatinine Glucose 135 H POC Glucose (mg/dL) Calcium 10.8 H Total Creatine Kinase <20 L 05/31/18 05/31/18 06/01/18 13:49 20:46 05:36 WBC RBC 5.57 H Hct MCH 24.2 L MCHC 29.7 L RDW 19.8 H Neutrophils # Lymphocytes # ABG pCO2 83 H* ABG pO2 64 L ABG HCO3 47 H* ABG Total CO2 49 H ABG O2 Saturation 91.9 L Potassium Chloride Carbon Dioxide BUN Creatinine Glucose POC Glucose (mg/dL) 134 H Calcium Total Creatine Kinase 06/01/18 06/01/18 05:36 06:22 WBC RBC Hct MCH MCHC RDW Neutrophils # Lymphocytes # ABG pCO2 ABG pO2 ABG HCO3 ABG Total CO2 ABG O2 Saturation Potassium Chloride 88 L Carbon Dioxide 41 H* BUN 68 H Creatinine 1.05 H Glucose 124 H POC Glucose (mg/dL) 133 H Calcium 10.4 H Total Creatine Kinase - Diagnostic Findings Chest x-ray: report reviewed, image reviewed (Chest x-ray, labs, and medications are all reviewed.) Assessment and Plan Assessment: Assessment Shortness of breath, multifactorial, likely related to underlying heart failure , COPD exacerbation, sleep apnea syndrome, and obesity/hypoventilation syndrome. The patient likely has a biventricular failure with a significant component of right heart failure/pulmonary hypertension/cor pulmonale and resultant lower extremity edema. Acute on chronic hypoxemic and hypercapnic respiratory failure Morbid obesity History of atrial fibrillation History of CHF History of GI bleed History of hypertension History of diverticular disease Chronic lower extremity cellulitis History of duodenal ulcer Plan: Plan dated 06/01/2018 Chest x-ray is consistent with pulmonary venous congestion and bilateral pleural effusions. White count is 5.9, hemoglobin 13.4, hematocrit 45.2 and platelet count is normal. Arterial blood gases yesterday, in the emergency room showed a PaO2 of 64 a PaCO2 of 83 and a pH of 7.36. This was on 36% oxygen and these blood gases are consistent with hypoxemic respiratory failure and compensated hypercapnic respiratory failure. Sodium and potassium are normal chloride was 88 and CO2 was 41. BUN and creatinine were 68 and 1.05 respectively. Medications are reviewed. All sedatives hypnotics narcotics and tranquilizers should be discontinued. The rest of the medications will be reviewed and appear to be relatively appropriate. She's currently on antibiotics in the form of Zithromax and Rocephin. She is on updrafts as well as Pulmicort and formoterol. She is also on Solu-Medrol. She is getting Lasix 60 mg IV push every 8 hours. Prognosis is guarded. Time with Patient: Greater than 30
[2018-06-01 11:04] LABS: Glucose,Whole Blood 161 mg/dL (75-99)
[2018-06-01] MEDS: MULTIVITAMINS, THERA 1 EACH TAB PO SCH (12:32)
--- NOTE | 2018-06-01 14:53 | PN ---
PROGRESS NOTE DATE OF SERVICE: 06/01/2018 This is a 68-year-old woman admitted with acute hypercapnic respiratory failure , also had severe COPD. The patient is also hypercarbia. Patient is monitored with BiPAP. Apparently patient had some BiPAP at home, which was discontinued and patient is not using anything at home. The patient is slightly more alert today. CO2 still elevated at 41. Dr. Bartlett is following the patient closely. Patient is on broad- spectrum IV antibiotics. Patient also had some element of CHF also. PAST MEDICAL HISTORY: Reviewed. REVIEW OF SYSTEMS: CARDIOVASCULAR SYSTEM: As mentioned earlier. RESPIRATORY: As mentioned earlier. GI: No nausea. : No dysuria. NERVOUS SYSTEM: No numbness weakness. CURRENT MEDICATIONS REVIEWED/INCLUDE: 1. Tylenol 1000 mg q.6 p.r.n. 2. DuoNeb q.i.d. and p.r.n. 3. Eliquis 5 mg p.o. b.i.d. 4. Aspirin 81 mg p.o. daily. 5. Erythromycin 500 mg daily. 6. Pulmicort 1 mg b.i.d. 7. Rocephin 1 g daily. 8. Cardizem 90 mg b.i.d. 9. Perforomist 20 mg b.i.d. 10.Lasix 60 mg IV q.8. 11.Claritin. 12.Solu-Medrol 60 IV q.6 hours. 13.Lopressor. 15.Narcan. 16.Protonix. 17.Aldactone 25 mg p.o. daily. PHYSICAL EXAM: Patient is alert, oriented x3, pulse 132, blood pressure 119/52, respiration 22, temperature 97.2, pulse ox 88% on 5 L. HEENT: Oral mucosa moist. Neck is no jugular venous distention. No carotid bruit. No lymph node enlargement. respiration acting. CARDIOVASCULAR: S1, S2, muffled, no S3, no S4. RESPIRATORY: Breath sounds diminished at the bases, bilateral scattered rhonchi , no crackles. Respiratory wheezing also present. ABDOMEN: Soft, nontender. LEGS: Bilateral leg edema. NERVOUS SYSTEM: Higher functions as mentioned earlier, moves all 4 limbs. No focal motor deficits. LYMPHATICS: No lymph node enlargementi in the neck or axillae. SKIN: No ulcer, rash or bleeding. LAB STUDIES: WBC is 5.8, hemoglobin us 13.4, ABG noted, sodium 140, potassium 4.2, CO2 is 41, glucose is 133. ASSESSMENT: 1. Acute hypoxic hypercarbic respiratory failure, multifactorial with congestive heart failure acute exacerbationacute, acute on chronic diastolic dysfunction, ejection fraction 50%-55% with pickwickian syndromes as well as restrictive lung disease and possibly chronic obstructive pulmonary disease acute exacerbation. 2. Bibasilar pneumonia, possibly gram-negative. 3. Severe chronic obstructive pulmonary disease. 4. Increased WBC. 5. Super morbid obesity with BMI of 65.2. 6. Hyperkalemia, mild. 7. History of atrial fibrillation. 8. History of asthma. 9. History of gastrointestinal bleed. 10.History of pneumonia. 11.History of sepsis. 12.History of chronic hypoxic respiratory failure. 13.Sleep apnea, on CPAP at home. 14.History of methicillin resistant Staphylococcus aureus. 15.History of cholecystectomy. 16.Remote history of nicotine dependence. RECOMMENDATION: 1. Recommend to continue current medication and symptomatic treatment with bronchodilators, steroids, antibiotics, diuretics, monitor fluid balance closely, continue with the BiPAP. 2. The patient also had severe hypercapnic respiratory failure with extremely elevated CO2. The patient will require BiPAP at home for continued treatment and monitoring also to prevent life-threatening complication of acute respiratory failure. The prognosis may be guarded. Will continue to monitor along with Pulmonology. Further recommendations to follow. MMODL / IJN: [id number] / CHRISTIANA
[2018-06-01] MEDS: MINERAL OIL-WHITE PETROLATUM 120 GM JAR TOPICAL SCH (15:05)
[2018-06-01] MEDS: SODIUM CHLORIDE 0.9% 1,000 ML IV SCH (15:47)
[2018-06-01 16:30] LABS: Glucose,Whole Blood 184 mg/dL (75-99)
[2018-06-01 19:04] LABS: Hemoglobin A1C 5.7 % (4.0-6.0)
[2018-06-01 20:50] LABS: Glucose,Whole Blood 179 mg/dL (75-99)
[2018-06-01] MEDS: AZITHROMYCIN 500 MG in DEXTROSE 5% IN WATER 250 ML IVPB SCH ×2 (21:23)
[2018-06-02] MEDS: FUROSEMIDE 10 MG/ML 10 ML VIAL IV SCH ×2 (00:04→08:49)
[2018-06-02] MEDS: methylPREDNISolone SOD SUCCI 125 MG/2 ML VIAL IV SCH ×5 (00:04→23:38)
[2018-06-02 05:54] LABS: Glucose,Whole Blood 125 mg/dL (75-99)
[2018-06-02 05:57] LABS: Anisocytosis Moderate; Basophils % (A) 0 %; Eosinophils % (A) 0 %; HCT 45.2 % (34.0-46.0); HGB 13.7 gm/dL (11.4-16.0); Hypochromasia Marked; Lymphocytes # (A) 0.8 k/uL (1.0-4.8); Lymphocytes % (A) 9 %; MCH 24.3 pg (25.0-35.0); MCHC 30.3 g/dL (31.0-37.0); MCV 80.1 fL (80.0-100.0); Mean Platelet Volume 7.1; Microcytosis Slight; Monocytes # (A) 0.4 k/uL (0-1.0); Monocytes % (A) 5 %; Neutrophils # (A) 7.5 k/uL (1.3-7.7); Neutrophils % (A) 85 %; Platelet Count 196 k/uL (150-450); RBC 5.64 m/uL (3.80-5.40); RDW 20.1 % (11.5-15.5); WBC 8.9 k/uL (3.8-10.6)
[2018-06-02 06:01] LABS: Calcium 9.8 mg/dL (8.4-10.2); Potassium 4.6 mmol/L (3.5-5.1)
[2018-06-02] MEDS: INSULIN ASPART 100 UNIT/ML 1 ML 10 ML VIAL SQ SCH ×4 (06:18→20:29)
[2018-06-02] MEDS: BUDESONIDE 1 MG/2 ML NEBU INHALATION SCH ×2 (07:38→19:54)
[2018-06-02] MEDS: IPRATROPIUM-ALBUTEROL 3 ML NEB INHALATION SCH ×4 (07:38→19:54)
[2018-06-02] MEDS: FORMOTEROL FUMARATE 20 MCG/2 ML NEBU INHALATION SCH ×2 (07:38→19:54)
[2018-06-02] MEDS: PANTOPRAZOLE 40 MG TABLET PO SCH (08:49)
[2018-06-02] MEDS: ASPIRIN 81 MG PO SCH (08:49)
[2018-06-02] MEDS: DILTIAZEM ORAL 30 MG TAB PO SCH ×2 (08:49→20:13)
[2018-06-02] MEDS: LORATADINE 10 MG TAB PO SCH (08:49)
[2018-06-02] MEDS: APIXABAN 5 MG TAB PO SCH ×2 (08:49→20:13)
[2018-06-02] MEDS: METOPROLOL TARTRATE 25 MG TAB PO SCH ×2 (08:49→20:13)
[2018-06-02] MEDS: SPIRONOLACTONE 25 MG TAB PO SCH (08:49)
[2018-06-02] MEDS: MINERAL OIL-WHITE PETROLATUM 120 GM JAR TOPICAL SCH (08:50)
[2018-06-02] MEDS: cefTRIAXone IN SWFI 1,000 MG/10 ML SYRINGE IVP SCH (09:01)
--- NOTE | 2018-06-02 11:02 | P.PN ---
Subjective Progress Note Date: 06/02/18 Principal diagnosis: Exacerbation of chronic obstructive pulmonary disease, diastolic congestive heart failure, obesity/hypoventilation syndrome. Pulmonary consult dated 06/01/2018 This 68-year-old female who presents to the emergency department with complaints of difficulty breathing. The history is mostly obtained from the family members. The patient comes in with significant somnolence and lethargy. This apparently has been occurring over the last few days. She has a prior history of hypoxemic and hypercapnic respiratory failure requiring hospitalization at this facility. She apparently does complain about being short of breath. Today in the room, we really cannot get significant history. She is very difficult to arouse. She apparently has occasional cough with clear sputum production. There is no fevers or chills. No chest pain. No chest discomfort. The patient does have a history of CHF and apparently the chest x-ray does show evidence of heart failure. In addition, she has significant lower extremities edema. Likely her shortness of breath is multifactorial in part related to underlying CHF but also to significant right- sided heart failure related to either pickwickian syndrome and/or sleep apnea syndrome. I'm sure she likely has cor pulmonale and pulmonary hypertension and lower extremity edema. The patient also has a history of atrial fibrillation chronic bronchial asthma COPD GI bleed hypertension pneumonia heart failure diverticular disease cellulitis chronic hypoxemic respiratory failure and while no ulcer. Reason is seen again today 06/02/2018 in follow-up on the selective care unit. She is currently awake and alert in no acute distress. She is doing much better today as compared to yesterday. She did utilize the BiPAP throughout the evening. He is currently maintaining good O2 saturations in the 90s on 4 L/ m per nasal cannula. She's been afebrile. Hemodynamically stable. White count 8.9. Hemoglobin 13.7. Bicarb 39. BUN 84, creatinine 1.10. She did have an overnight pulse oximeter reading which did show desaturations. The patient has qualified for home BiPAP. Objective - Vital Signs Vital signs: Vital Signs Temp 97.5 F L 06/02/18 08:00 Pulse 85 06/02/18 08:00 Resp 16 06/02/18 08:00 BP 134/91 06/02/18 08:00 Pulse Ox 94 L 06/02/18 08:00 Intake & Output 06/01/18 06/02/18 06/02/18 18:59 06:59 18:59 Intake Total 672 250 Output Total 600 1250 Balance 72 -1000 Weight 170 kg Intake: Intake, IV Titration 30 250 Amount Azithromycin 500 mg In 30 250 Dextrose 5% in Water 250 ml @ 125 mls/hr IVPB HS BARBER Rx#:[id number] Oral 642 Output: Urine 600 1250 - Exam Patient is awake and alert. Oriented 3.. Rectal obese. HEENT examination is grossly unremarkable. Mucous membranes are moist. Neck supple. Full range of motion. No adenopathy thyromegaly or neck vein distention. Cardiovascular examination reveals irregular rhythm and rate. S1-S2 normal. No S3 or S4. No discernible murmur noted. Heart sounds are very distant. Lungs reveal coarse bilateral breath sounds. By basilar crackles are appreciated. Breath sounds are severely diminished throughout. There are equal bilaterally. No wheezes appreciated. Abdomen soft bowel sounds are heard. No masses or tenderness. Extremities are intact. Significant lower extremity edema is noted. No clubbing or cyanosis. Skin is without rash or lesion. Neurologic examination without focal deficits.. - Labs CBC & Chem 7: 06/02/18 05:25 06/02/18 05:25 Labs: Abnormal Lab Results - Last 24 Hours (Table) 06/01/18 06/01/18 06/01/18 Range/Units 11:03 16:10 20:48 RBC (3.80-5.40) m/uL MCH (25.0-35.0) pg MCHC (31.0-37.0) g/dL RDW (11.5-15.5) % Lymphocytes # (1.0-4.8) k/uL Chloride (98-107) mmol/L Carbon Dioxide (22-30) mmol/L BUN (7-17) mg/dL Creatinine (0.52-1.04) mg/dL Glucose (74-99) mg/dL POC Glucose (mg/dL) 161 H 184 H 179 H (75-99) mg/dL 06/02/18 06/02/18 06/02/18 Range/Units 05:25 05:25 05:52 RBC 5.64 H (3.80-5.40) m/uL MCH 24.3 L (25.0-35.0) pg MCHC 30.3 L (31.0-37.0) g/dL RDW 20.1 H (11.5-15.5) % Lymphocytes # 0.8 L (1.0-4.8) k/uL Chloride 90 L (98-107) mmol/L Carbon Dioxide 39 H (22-30) mmol/L BUN 84 H* (7-17) mg/dL Creatinine 1.10 H (0.52-1.04) mg/dL Glucose 120 H (74-99) mg/dL POC Glucose (mg/dL) 125 H (75-99) mg/dL Assessment and Plan Assessment: Assessment Shortness of breath, multifactorial, likely related to underlying heart failure , COPD exacerbation, sleep apnea syndrome, and obesity/hypoventilation syndrome. The patient likely has a biventricular failure with a significant component of right heart failure/pulmonary hypertension/cor pulmonale and resultant lower extremity edema. Acute on chronic hypoxemic and hypercapnic respiratory failure Morbid obesity History of atrial fibrillation History of CHF History of GI bleed History of hypertension History of diverticular disease Chronic lower extremity cellulitis History of duodenal ulcer Plan: The patient was seen and evaluated by Dr. Bartlett. She is much improved today as compared to yesterday. She is cleared for discharge from the pulmonary standpoint. She has qualified for BiPAP in the outpatient setting. We can continue with her current settings which are 14/7 and 40% FiO2. Follow-up in our office in 1-2 weeks' time. She is however encouraged to call sooner with any recurrence of symptoms or other questions or concerns. I, the cosigning physician, performed a history & physical examination of the patient. Lungs sounds with faint crackles in the bilateral bases. Maintaining good O2 saturations in the 90s on 4L. I discussed the assessment and plan of care with my nurse practitioner, Iveth Da Silva. I attest to the above note as dictated by her.
[2018-06-02 11:23] LABS: Glucose,Whole Blood 173 mg/dL (75-99)
[2018-06-02] MEDS: MULTIVITAMINS, THERA 1 EACH TAB PO SCH (11:37)
[2018-06-02] MEDS: ACETAMINOPHEN TAB 500 MG TAB PO PRN (12:51)
[2018-06-02 16:30] LABS: Glucose,Whole Blood 158 mg/dL (75-99)
[2018-06-02] MEDS: SODIUM CHLORIDE 0.9% 1,000 ML IV SCH (17:00)
--- NOTE | 2018-06-02 17:09 | PN ---
PROGRESS NOTE DATE OF SERVICE: 06/02/2018 This 68-year-old woman was admitted with acute hypoxic respiratory failure. Had some shortness of breath last night and the patient is hypoxic also. There is no chest pain. No palpitations. No fever. The creatinine is also elevated to 1.10, BUN is 84. PHYSICAL EXAM: Patient is alert, oriented x2. Pulse is 69. Blood pressure 120/60. Respiration 18, temperature 97.4, pulse ox 98% on 4 L. HEENT: Conjunctivae normal. Oral mucosa moist. Neck is no jugular venous distention. No carotid bruit. No lymph node enlargement. Cardiovascular: S1, S2 muffled. Respiratory: Breath sounds diminished in the bases. Scattered rhonchi and crackles. ABDOMEN: Soft, obese, nontender. Legs are no edema. No swelling. Central nervous system: No focal deficits. LABS: WBC 8.8, hemoglobin 13.7, sodium 130, potassium 4.6. ASSESSMENT: 1. Acute hypoxic hypercarbic respiratory failure multifactorial with congestive heart failure acute exacerbation, acute on chronic diastolic dysfunction, ejection fraction 50-55% with acute disease and possible chronic obstructive pulmonary disease acute exacerbation. 2. Bibasilar pneumonia possibly gram-negative. 3. Severe chronic obstructive pulmonary disease. 4. Increased WBC. 5. Super morbid obesity with BMI of 65.2. 6. Hypokalemia, mild. 7. History atrial fibrillation. 8. History of asthma. 9. History of gastrointestinal bleed. 10.History of pneumonia. 11.History of sepsis. 12.History of chronic hypoxic respiratory failure. 13.Sleep apnea, on CPAP at home. 14.History of Methicillin-resistant Staphylococcus aureus. 15.History of cholecystectomy. 16.Remote history of nicotine dependence. RECOMMENDATIONS AND DISCUSSION: Continue current management and symptomatic treatment. Otherwise at this time I recommend continue with bronchodilators. Cut down the dose of diuretics. Closely follow. Arrange bypass at home. Prognosis guarded. Further recommendations to follow. MMODL / IJN: [id number] / MTDD
[2018-06-02] MEDS: FUROSEMIDE 10 MG/ML 4 ML VIAL IV SCH (20:15)
[2018-06-02 20:24] LABS: Glucose,Whole Blood 244 mg/dL (75-99)
[2018-06-02 20:24] LABS: Glucose,Whole Blood 241 mg/dL (75-99)
[2018-06-02] MEDS ORDERED: AZITHROMYCIN 500 MG TAB PO SCH (21:00)
[2018-06-03] MEDS: ACETAMINOPHEN TAB 500 MG TAB PO PRN (04:38)
[2018-06-03 05:46] LABS: Anisocytosis Slight; Basophils % (A) 0 %; Eosinophils % (A) 0 %; HCT 45.4 % (34.0-46.0); HGB 13.6 gm/dL (11.4-16.0); Hypochromasia Marked; Lymphocytes # (A) 0.7 k/uL (1.0-4.8); Lymphocytes % (A) 7 %; MCH 24.2 pg (25.0-35.0); MCHC 29.9 g/dL (31.0-37.0); Mean Platelet Volume 6.6; Microcytosis Slight; Monocytes # (A) 0.4 k/uL (0-1.0); Monocytes % (A) 3 %; Neutrophils # (A) 9.5 k/uL (1.3-7.7); Neutrophils % (A) 89 %; Platelet Count 181 k/uL (150-450); Poikilocytosis Slight; RDW 19.6 % (11.5-15.5); WBC 10.8 k/uL (3.8-10.6)
[2018-06-03 05:55] LABS: Calcium 9.5 mg/dL (8.4-10.2); Potassium 3.8 mmol/L (3.5-5.1)
[2018-06-03 05:57] LABS: Glucose,Whole Blood 121 mg/dL (75-99)
[2018-06-03] MEDS: INSULIN ASPART 100 UNIT/ML 1 ML 10 ML VIAL SQ SCH ×2 (06:00→11:28)
[2018-06-03] MEDS: methylPREDNISolone SOD SUCCI 125 MG/2 ML VIAL IV SCH ×2 (06:14→11:28)
[2018-06-03] MEDS: PANTOPRAZOLE 40 MG TABLET PO SCH (06:14)
[2018-06-03 07:42] VITALS: TEMP 97.6
[2018-06-03] MEDS: IPRATROPIUM-ALBUTEROL 3 ML NEB INHALATION SCH ×3 (07:59→16:57)
[2018-06-03] MEDS: BUDESONIDE 1 MG/2 ML NEBU INHALATION SCH (07:59)
[2018-06-03] MEDS: FORMOTEROL FUMARATE 20 MCG/2 ML NEBU INHALATION SCH (07:59)
[2018-06-03] MEDS: DILTIAZEM ORAL 30 MG TAB PO SCH (08:46)
[2018-06-03] MEDS: SPIRONOLACTONE 25 MG TAB PO SCH (08:46)
[2018-06-03] MEDS: ASPIRIN 81 MG PO SCH (08:46)
[2018-06-03] MEDS: METOPROLOL TARTRATE 25 MG TAB PO SCH (08:46)
[2018-06-03] MEDS: LORATADINE 10 MG TAB PO SCH (08:46)
[2018-06-03] MEDS: APIXABAN 5 MG TAB PO SCH (08:46)
[2018-06-03] MEDS: FUROSEMIDE 10 MG/ML 4 ML VIAL IV SCH (08:48)
[2018-06-03] MEDS: MINERAL OIL-WHITE PETROLATUM 120 GM JAR TOPICAL SCH (08:53)
[2018-06-03] MEDS: cefTRIAXone IN SWFI 1,000 MG/10 ML SYRINGE IVP SCH (08:53)
[2018-06-03 11:27] LABS: Glucose,Whole Blood 155 mg/dL (75-99)
[2018-06-03] MEDS: MULTIVITAMINS, THERA 1 EACH TAB PO SCH (11:28)
[2018-06-03 11:40] VITALS: BP 136/82
--- NOTE | 2018-06-03 12:44 | P.PN ---
Subjective Progress Note Date: 06/03/18 Principal diagnosis: Exacerbation of chronic obstructive pulmonary disease, diastolic congestive heart failure, obesity/hypoventilation syndrome. Pulmonary consult dated 06/01/2018 This 68-year-old female who presents to the emergency department with complaints of difficulty breathing. The history is mostly obtained from the family members. The patient comes in with significant somnolence and lethargy. This apparently has been occurring over the last few days. She has a prior history of hypoxemic and hypercapnic respiratory failure requiring hospitalization at this facility. She apparently does complain about being short of breath. Today in the room, we really cannot get significant history. She is very difficult to arouse. She apparently has occasional cough with clear sputum production. There is no fevers or chills. No chest pain. No chest discomfort. The patient does have a history of CHF and apparently the chest x-ray does show evidence of heart failure. In addition, she has significant lower extremities edema. Likely her shortness of breath is multifactorial in part related to underlying CHF but also to significant right- sided heart failure related to either pickwickian syndrome and/or sleep apnea syndrome. I'm sure she likely has cor pulmonale and pulmonary hypertension and lower extremity edema. The patient also has a history of atrial fibrillation chronic bronchial asthma COPD GI bleed hypertension pneumonia heart failure diverticular disease cellulitis chronic hypoxemic respiratory failure and while no ulcer. Reason is seen again today 06/02/2018 in follow-up on the selective care unit. She is currently awake and alert in no acute distress. She is doing much better today as compared to yesterday. She did utilize the BiPAP throughout the evening. He is currently maintaining good O2 saturations in the 90s on 4 L/ m per nasal cannula. She's been afebrile. Hemodynamically stable. White count 8.9. Hemoglobin 13.7. Bicarb 39. BUN 84, creatinine 1.10. She did have an overnight pulse oximeter reading which did show desaturations. The patient has qualified for home BiPAP. 06/03/2018 in follow-up on the selective care unit. She is currently resting quite comfortably in bed. She is awake and alert in no acute distress. We are able to qualify her for her BiPAP machine which is present at the bedside for her to be discharged home with. She is maintaining good O2 saturations in the 90s on room air. She's been afebrile. Hemodynamically stable. Count 10.8. Hemoglobin 13.6. Bicarb 40 creatinine 1.14 Objective - Vital Signs Vital signs: Vital Signs Temp 97.6 F 06/03/18 07:42 Pulse 94 06/03/18 12:24 Resp 16 06/03/18 11:40 BP 136/82 06/03/18 11:39 Pulse Ox 93 L 06/03/18 11:39 Intake & Output 06/02/18 06/03/18 06/03/18 18:59 06:59 18:59 Intake Total 720 180 Output Total 1300 Balance 720 -1300 180 Weight 171.5 kg Intake: Intake, IV Titration 0 Amount Sodium Chloride 0.9% 1, 0 000 ml @ 20 mls/hr IV . Q24H BARBER Rx#:[id number] Oral 720 180 Output: Urine 1300 Other: # Bowel Movements 1 2 1 - Exam Patient is awake and alert. Oriented 3.. Morbidly obese. HEENT examination is grossly unremarkable. Mucous membranes are moist. Neck supple. Full range of motion. No adenopathy thyromegaly or neck vein distention. Cardiovascular examination reveals irregular rhythm and rate. S1-S2 normal. No S3 or S4. No discernible murmur noted. Heart sounds are very distant. Lungs reveal coarse bilateral breath sounds. By basilar crackles are appreciated. Breath sounds are severely diminished throughout. There are equal bilaterally. No wheezes appreciated. Abdomen soft bowel sounds are heard. No masses or tenderness. Extremities are intact. Significant lower extremity edema is noted. No clubbing or cyanosis. Skin is without rash or lesion. Neurologic examination without focal deficits.. - Labs CBC & Chem 7: 06/03/18 05:33 06/03/18 05:33 Labs: Abnormal Lab Results - Last 24 Hours (Table) 06/02/18 06/02/18 06/02/18 Range/Units 16:20 20:21 20:22 WBC (3.8-10.6) k/uL RBC (3.80-5.40) m/uL MCH (25.0-35.0) pg MCHC (31.0-37.0) g/dL RDW (11.5-15.5) % Neutrophils # (1.3-7.7) k/uL Lymphocytes # (1.0-4.8) k/uL Chloride (98-107) mmol/L Carbon Dioxide (22-30) mmol/L BUN (7-17) mg/dL Creatinine (0.52-1.04) mg/dL Glucose (74-99) mg/dL POC Glucose (mg/dL) 158 H 244 H 241 H (75-99) mg/dL 06/03/18 06/03/18 06/03/18 Range/Units 05:33 05:33 05:56 WBC 10.8 H (3.8-10.6) k/uL RBC 5.60 H (3.80-5.40) m/uL MCH 24.2 L (25.0-35.0) pg MCHC 29.9 L (31.0-37.0) g/dL RDW 19.6 H (11.5-15.5) % Neutrophils # 9.5 H (1.3-7.7) k/uL Lymphocytes # 0.7 L (1.0-4.8) k/uL Chloride 91 L (98-107) mmol/L Carbon Dioxide 40 H* (22-30) mmol/L BUN 77 H (7-17) mg/dL Creatinine 1.14 H (0.52-1.04) mg/dL Glucose 124 H (74-99) mg/dL POC Glucose (mg/dL) 121 H (75-99) mg/dL 06/03/18 Range/Units 11:25 WBC (3.8-10.6) k/uL RBC (3.80-5.40) m/uL MCH (25.0-35.0) pg MCHC (31.0-37.0) g/dL RDW (11.5-15.5) % Neutrophils # (1.3-7.7) k/uL Lymphocytes # (1.0-4.8) k/uL Chloride (98-107) mmol/L Carbon Dioxide (22-30) mmol/L BUN (7-17) mg/dL Creatinine (0.52-1.04) mg/dL Glucose (74-99) mg/dL POC Glucose (mg/dL) 155 H (75-99) mg/dL Assessment and Plan Assessment: Assessment Shortness of breath, multifactorial, likely related to underlying heart failure , COPD exacerbation, sleep apnea syndrome, and obesity/hypoventilation syndrome. The patient likely has a biventricular failure with a significant component of right heart failure/pulmonary hypertension/cor pulmonale and resultant lower extremity edema. Acute on chronic hypoxemic and hypercapnic respiratory failure Morbid obesity History of atrial fibrillation History of CHF History of GI bleed History of hypertension History of diverticular disease Chronic lower extremity cellulitis History of duodenal ulcer Plan: The patient was seen and evaluated by Dr. Bartlett. She is cleared for discharge from the pulmonary standpoint. Her home BiPAP machine is in the room for her to take home. We can continue with her current settings which are 14/7 and 40% FiO2. Follow-up in our office in 1-2 weeks' time. She is however encouraged to call sooner with any recurrence of symptoms or other questions or concerns. I, the cosigning physician, performed a history & physical examination of the patient. Lungs sounds with faint crackles in the bilateral bases. Maintaining good O2 saturations in the 90s on room air. I discussed the assessment and plan of care with my nurse practitioner, Iveth Da Silva. I attest to the above note as dictated by her.
[2018-06-03 16:20] LABS: Glucose,Whole Blood 141 mg/dL (75-99)
[2018-06-03 17:01] VITALS: RESP 20
[2018-06-03 17:09] VITALS: PULSE 70
--- NOTE | 2018-06-03 21:28 | DS ---
DISCHARGE SUMMARY FINAL DIAGNOSES: 1. Shortness of breath, possibly multifactorial with congestive heart failure acute exacerbation with acute hypoxic hypercarbic respiratory failure with acute on chronic diastolic dysfunction as well as ejection fraction 50%-55%. 2. Chronic obstructive pulmonary disease exacerbation. 3. Pickwickian syndrome and reticular disease. 4. Bibasilar pneumonia, possibly gram-negative. 5. Severe chronic obstructive pulmonary disease. 6. Increased WBC. 7. Super morbid obesity with a BMI of 65.2. 8. Hypokalemia, mild. 9. History of atrial fibrillation. 10.History of asthma. 11.History of gastroesophageal reflux disease. 12.History of pneumonia. 13.History of sepsis. 14.History of chronic hypoxic respiratory failure. 15.History of sleep apnea, on CPAP at home. 16.History of methicillin-resistant Staphylococcus aureus. 17.History of cholecystectomy. 18.Remote history of nicotine dependence. DISCHARGE DISPOSITION: The patient will be discharged in stable condition with a guarded prognosis. TOTAL TIME TAKEN: 35 minutes. HISTORY OF PRESENT ILLNESS: This 68-year-old woman with a past medical history of multiple medical problems admitted with significant medical issues and shortness of breath and respiratory failure. Patient was treated symptomatically. Patient improved significantly. Outpatient BiPAP was arranged, which might prevent readmissions at this point. Otherwise, please see Pulmonology note for further information. EXAM: Vitals are stable. CARDIOVASCULAR: S1, S2. RESPIRATORY: A few scattered rhonchi. ABDOMEN: Soft. NERVOUS SYSTEM: No focal deficits. DISCHARGE ADVICE AND MEDICATIONS: 1. Diet is cardiac. 2. Activity limited until followup. 3. Follow up with Dr. Agee in 2-3 days. 4. Follow up with Dr. Bartlett as advised. 5. Medications are: a. Tylenol 1000 mg q.4 p.r.n. b. Symbicort 160/4.5 two puffs b.i.d. c. Diltiazem 90 mg p.o. b.i.d. d. Fexofenadine 180 mg p.o. daily. e. Lasix 80 mg p.o. b.i.d. f. Lopressor 70 mg p.o. b.i.d. g. Multivitamins 1 p.o. daily. h. Aldactone 25 mg p.o. daily. i. Albuterol p.r.n. j. elaquis 5 mg p.o. b.i.d. k. Ecotrin 81 mg p.o. daily. l. Zithromax 500 mg q.h.s. for 5 days. m. Ceftin 500 mg p.o. b.i.d. for 5 days. n. DuoNeb q.i.d. and p.r.n. o. Protonix 40 mg daily. p.Prednisone taper that will be 40 mg daily for 3 days, 30 for 3 days, 20 for 3 days, 10 for 3 days and then stop. MMGOGOL / IJN: [id number] / MTDD
== END 2018-06-03 18:30 | disposition home health service (06) | DRG 177 ==
LOC: EC 12:21 → 6SEL 15:28
PROVIDERS: ADMIT Internal Medicine; ATTEND Internal Medicine
PROC: 5A09357 Assistance with Respiratory Ventilation, Less than 24 Consecutive Hours, Continuous Positive Airway Pressure (ICD-10-PCS; principal; 2018-06-01)
DX: J15.6 Pneumonia due to other Gram-negative bacteria (principal); J96.21 Acute and chronic respiratory failure with hypoxia; J96.22 Acute and chronic respiratory failure with hypercapnia; I50.33 Acute on chronic diastolic (congestive) heart failure; E66.2 Morbid (severe) obesity with alveolar hypoventilation; J44.0 Chronic obstructive pulmonary disease with (acute) lower respiratory infection; J44.1 Chronic obstructive pulmonary disease with (acute) exacerbation; L03.116 Cellulitis of left lower limb; L03.115 Cellulitis of right lower limb; Z68.44 Body mass index [BMI] 60.0-69.9, adult; I11.0 Hypertensive heart disease with heart failure; I50.82 Biventricular heart failure; E87.5 Hyperkalemia; H91.90 Unspecified hearing loss, unspecified ear; I27.29 Other secondary pulmonary hypertension; I27.81 Cor pulmonale (chronic); I48.2 Chronic atrial fibrillation; J98.4 Other disorders of lung; K21.9 Gastro-esophageal reflux disease without esophagitis; K57.90 Diverticulosis of intestine, part unspecified, without perforation or abscess without bleeding; Z79.01 Long term (current) use of anticoagulants; Z79.51 Long term (current) use of inhaled steroids; Z79.899 Other long term (current) drug therapy; Z79.82 Long term (current) use of aspirin; Z79.52 Long term (current) use of systemic steroids; Z90.49 Acquired absence of other specified parts of digestive tract; Z87.891 Personal history of nicotine dependence; Z87.11 Personal history of peptic ulcer disease; Z87.01 Personal history of pneumonia (recurrent); Z86.14 Personal history of Methicillin resistant Staphylococcus aureus infection; Z82.49 Family history of ischemic heart disease and other diseases of the circulatory system; Z83.3 Family history of diabetes mellitus; Z83.518 Family history of other specified eye disorder; Z84.1 Family history of disorders of kidney and ureter; Z82.69 Family history of other diseases of the musculoskeletal system and connective tissue
CPT/HCPCS: 36415; 36600; 71045; 80048; 80053; 82550; 82553; 82805; 83036; 83880; 84484; 85025; 85610; 85730; 93005; 94640; 94660; 94760; 94762; 96374; 99291

== ENCOUNTER 2018-07-01 13:56 | Inpatient (IN) | payer MEDICARE, MEDICAID ==
[2018-07-01] MEDS ORDERED: methylPREDNISolone SOD SUCCI 125 MG/2 ML VIAL IV STA (14:14)
[2018-07-01] MEDS ORDERED: IPRATROPIUM 0.5 MG/2.5 ML NEBU INHALATION STA (14:14)
[2018-07-01] MEDS ORDERED: SODIUM CHLORIDE 0.9% 1,000 ML IV STA (14:14)
[2018-07-01] MEDS ORDERED: ALBUTEROL NEBULIZED 2.5 MG/3 ML INHALATION STA (14:14)
[2018-07-01] MEDS ORDERED: AZITHROMYCIN 500 MG in SODIUM CHLORIDE 0.9% 250 ML IVPB STA (14:14)
--- NOTE | 2018-07-01 14:58 | ED ---
General Adult HPI - General Chief complaint: Shortness of Breath Stated complaint: Low O2 Time Seen by Provider: 07/01/18 14:04 Source: patient, EMS Mode of arrival: EMS Limitations: no limitations - History of Present Illness Initial comments: This is a 60-year-old female the ER for evaluation. Patient's is today for evaluation significant shortness of breath hypoxia. Patient has history of COPD history of CHF history of A. fib heart disease or lung disease. Patient was seen by a visiting nurse who stated patient was in severe distress with low pulse ox information. Patient has no other significant issues or complaints currently. No chest pain - Related Data Home Medications Medication Instructions Recorded Confirmed Multivits,Th W-Ca,Fe,Oth Min 1 tab PO DAILY 03/25/18 07/01/18 [Therapeutic M] Acetaminophen [Tylenol] 1,500 mg PO Q4-6H PRN 05/31/18 07/01/18 Budesonide-Formot 160-4.5 Mcg 2 puff INHALATION RT-BID 05/31/18 07/01/18 [Symbicort 160-4.5 Mcg Inhaler] Diltiazem HCl 90 mg PO BID 05/31/18 07/01/18 Fexofenadine HCl [Sarita Allergy] 180 mg PO DAILY 05/31/18 07/01/18 Furosemide [Lasix] 80 mg PO BID 05/31/18 07/01/18 Metoprolol Tartrate [Lopressor] 75 mg PO BID 05/31/18 07/01/18 Spironolactone [Aldactone] 25 mg PO DAILY 05/31/18 07/01/18 Previous Rx's Medication Instructions Recorded Apixaban [Eliquis] 5 mg PO BID #60 tab 03/31/18 Aspirin EC [Ecotrin Low Dose] 81 mg PO DAILY #30 tablet. 03/31/18 Ipratropium-Albuterol Nebulize 3 ml INHALATION RT-QID #120 06/03/18 [Duoneb 0.5 mg-3 mg/3 ml Soln] ampul.neb Pantoprazole [Protonix] 40 mg PO AC-BRKFST #30 tablet. 06/03/18 Allergies Allergy/AdvReac Type Severity Reaction Status Date / Time No Known Allergies Allergy Verified 07/01/18 14:49 Review of Systems ROS Statement: Those systems with pertinent positive or pertinent negative responses have been documented in the HPI. ROS Other: All systems not noted in ROS Statement are negative. Past Medical History Past Medical History: Atrial Fibrillation, Asthma, Heart Failure, COPD, GI Bleed , Hypertension, Pneumonia Additional Past Medical History / Comment(s): past hx sepsis,acute diverticulitis, home O2- 4 liters n/c, duodenal ulcer, hx alex lower leg cellulitis, intubated in Oct 2017 for COPD exacerbation, mrsa, c diff at [facility]. 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 Past Psychological History: No Psychological Hx Reported Smoking Status: Former smoker - Past Family History Father Family Medical History: Eye Disorder, Osteoarthritis (OA) Additional Family Medical History / Comment(s): at age 92 from old age, had macular degeneration Mother Family Medical History: Coronary Artery Disease (CAD), Diabetes Mellitus, Hypertension, Renal Disease Additional Family Medical History / Comment(s): cabg, dialysis General Exam Limitations: no limitations General appearance: alert, in no apparent distress, obese Head exam: Present: atraumatic, normocephalic, normal inspection Eye exam: Present: normal appearance, PERRL, EOMI. Absent: scleral icterus, conjunctival injection, periorbital swelling ENT exam: Present: normal exam, mucous membranes moist Neck exam: Present: normal inspection. Absent: tenderness, meningismus, lymphadenopathy Respiratory exam: Present: respiratory distress, wheezes, accessory muscle use, decreased breath sounds, prolonged expiratory. Absent: rales, rhonchi, stridor Cardiovascular Exam: Present: regular rate, normal rhythm, normal heart sounds. Absent: systolic murmur, diastolic murmur, rubs, gallop, clicks GI/Abdominal exam: Present: soft, normal bowel sounds. Absent: distended, tenderness, guarding, rebound, rigid Extremities exam: Present: normal inspection, full ROM, normal capillary refill. Absent: tenderness, pedal edema, joint swelling, calf tenderness Back exam: Present: normal inspection Neurological exam: Present: alert, oriented X3, CN II-XII intact Psychiatric exam: Present: normal affect, normal mood Skin exam: Present: warm, dry, intact, normal color. Absent: rash Course Vital Signs 07/01/18 07/01/18 07/01/18 14:05 15:29 15:55 Temperature 97.5 F L Pulse Rate 56 L 106 H 97 Respiratory 24 18 Rate Blood Pressure 153/65 120/67 O2 Sat by Pulse 94 L 97 Oximetry 07/01/18 07/01/18 16:19 17:11 Temperature Pulse Rate 110 H 86 Respiratory 18 Rate Blood Pressure 108/67 O2 Sat by Pulse 87 L Oximetry - Reevaluation(s) Reevaluation #1: 07/01/18 14:57 Medical records thoroughly reviewed, multiple prior admissions Reevaluation #2: 07/01/18 16:20 Patient with no improvement in breathing treatment, still short hypoxia EKG Findings - EKG Comments: EKG Findings:: EKG shows A. fib rate of 99, QRS 92, QTc 444 Medical Decision Making - Medical Decision Making 60 female the ER for evaluation of significant COPD exacerbation. Hypoxia. Patient to be admitted for continued nightly CPAP, and tingling and breathing treatments. - Lab Data Result diagrams: 07/01/18 16:10 07/01/18 15:28 Lab Results 07/01/18 07/01/18 07/01/18 Range/Units 15:28 15:28 15:28 WBC (3.8-10.6) k/uL RBC (3.80-5.40) m/uL Hgb (11.4-16.0) gm/dL Hct (34.0-46.0) % MCV (80.0-100.0) fL MCH (25.0-35.0) pg MCHC (31.0-37.0) g/dL RDW (11.5-15.5) % Plt Count (150-450) k/uL Neutrophils % % Lymphocytes % % Monocytes % % Eosinophils % % Basophils % % Neutrophils # (1.3-7.7) k/uL Lymphocytes # (1.0-4.8) k/uL Monocytes # (0-1.0) k/uL Eosinophils # (0-0.7) k/uL Basophils # (0-0.2) k/uL Hypochromasia Poikilocytosis Anisocytosis Microcytosis PT 10.5 (9.0-12.0) sec INR 1.1 (<1.2) APTT 22.4 (22.0-30.0) sec Sodium 136 L (137-145) mmol/L Potassium 5.1 (3.5-5.1) mmol/L Chloride 90 L (98-107) mmol/L Carbon Dioxide 35 H (22-30) mmol/L Anion Gap 11 mmol/L BUN 57 H (7-17) mg/dL Creatinine 1.05 H (0.52-1.04) mg/dL Est GFR (CKD-EPI)AfAm 63 (>60 ml/min/1.73 sqM) Est GFR (CKD-EPI)NonAf 55 (>60 ml/min/1.73 sqM) Glucose 130 H (74-99) mg/dL Calcium 10.1 (8.4-10.2) mg/dL Magnesium 2.1 (1.6-2.3) mg/dL Total Bilirubin 0.4 (0.2-1.3) mg/dL AST 30 (14-36) U/L ALT 27 (9-52) U/L Alkaline Phosphatase 82 (38-126) U/L Total Creatine Kinase <20 L (30-135) U/L CK-MB (CK-2) 0.9 (0.0-2.4) ng/mL CK-MB (CK-2) Rel Index Troponin I 0.023 (0.000-0.034) ng/mL NT-Pro-B Natriuret Pep pg/mL Total Protein 6.4 (6.3-8.2) g/dL Albumin 3.3 L (3.5-5.0) g/dL 07/01/18 07/01/18 Range/Units 16:10 16:10 WBC 10.2 (3.8-10.6) k/uL RBC 5.22 (3.80-5.40) m/uL Hgb 12.7 (11.4-16.0) gm/dL Hct 42.8 (34.0-46.0) % MCV 81.9 (80.0-100.0) fL MCH 24.3 L (25.0-35.0) pg MCHC 29.7 L (31.0-37.0) g/dL RDW 19.4 H (11.5-15.5) % Plt Count 196 (150-450) k/uL Neutrophils % 77 % Lymphocytes % 16 % Monocytes % 5 % Eosinophils % 0 % Basophils % 0 % Neutrophils # 7.8 H (1.3-7.7) k/uL Lymphocytes # 1.6 (1.0-4.8) k/uL Monocytes # 0.5 (0-1.0) k/uL Eosinophils # 0.0 (0-0.7) k/uL Basophils # 0.0 (0-0.2) k/uL Hypochromasia Marked Poikilocytosis Moderate Anisocytosis Slight Microcytosis Slight PT (9.0-12.0) sec INR (<1.2) APTT (22.0-30.0) sec Sodium (137-145) mmol/L Potassium (3.5-5.1) mmol/L Chloride (98-107) mmol/L Carbon Dioxide (22-30) mmol/L Anion Gap mmol/L BUN (7-17) mg/dL Creatinine (0.52-1.04) mg/dL Est GFR (CKD-EPI)AfAm (>60 ml/min/1.73 sqM) Est GFR (CKD-EPI)NonAf (>60 ml/min/1.73 sqM) Glucose (74-99) mg/dL Calcium (8.4-10.2) mg/dL Magnesium (1.6-2.3) mg/dL Total Bilirubin (0.2-1.3) mg/dL AST (14-36) U/L ALT (9-52) U/L Alkaline Phosphatase (38-126) U/L Total Creatine Kinase (30-135) U/L CK-MB (CK-2) (0.0-2.4) ng/mL CK-MB (CK-2) Rel Index Troponin I (0.000-0.034) ng/mL NT-Pro-B Natriuret Pep 4230 pg/mL Total Protein (6.3-8.2) g/dL Albumin (3.5-5.0) g/dL - Radiology Data Radiology results: report reviewed (Chest x-ray), image reviewed Critical Care Time Critical Care Time: Yes Total Critical Care Time: 31 Disposition Clinical Impression: COPD (chronic obstructive pulmonary disease), Atrial fibrillation with rapid ventricular response, Dyspnea, Morbid obesity, CHF exacerbation, Hypoxia, Systolic congestive heart failure Disposition: ADMITTED IP TO THIS [facility] Condition: Fair Is patient prescribed a controlled substance at d/c from ED?: No Referrals: Chele Carrasco MD [Primary Care Provider] - 1-2 days
[2018-07-01 16:03] LABS: Albumin 3.3 g/dL (3.5-5.0); Calcium 10.1 mg/dL (8.4-10.2); Creatine Kinase <20 U/L (30-135); Magnesium 2.1 mg/dL (1.6-2.3); Potassium 5.1 mmol/L (3.5-5.1); Total Bilirubin 0.4 mg/dL (0.2-1.3); Total Protein 6.4 g/dL (6.3-8.2)
[2018-07-01] MEDS: IPRATROPIUM-ALBUTEROL 3 ML NEB INHALATION SCH ×2 (16:09→21:01)
[2018-07-01 16:14] LABS: Creatine Kinase MB 0.9 ng/mL (0.0-2.4); Troponin I 0.023 ng/mL (0.000-0.034)
[2018-07-01 16:17] LABS: INR 1.1 (<1.2); Partial Thromboplastin Time 22.4 sec (22.0-30.0); Prothrombin Time 10.5 sec (9.0-12.0)
--- NOTE | 2018-07-01 16:32 | XR ---
EXAMINATION TYPE: XR chest 2V DATE OF EXAM: 07/01/2018 COMPARISON: Chest x-ray from one month ago. HISTORY: Hypoxia and difficulty in breathing. TECHNIQUE: Frontal and lateral views of the chest are obtained. FINDINGS: Lateral view is suboptimal due to patient's large body habitus. There is persistent cardiom egaly with suspected mild to moderate central vascular congestion. Difficult to exclude areas of acut e infiltrate in the bases, left more prominent than right. There is atherosclerotic and ectatic thora cic aorta The osseous structures are intact. IMPRESSION: Suboptimal study, correlate for CHF exacerbation as there is cardiomegaly with suspected mild to moderate central vascular congestion, cannot exclude areas of acute infiltrate in both bases .
[2018-07-01 16:41] LABS: Anisocytosis Slight; Hypochromasia Marked; Microcytosis Slight; Poikilocytosis Moderate
[2018-07-01 16:42] LABS: Basophils % (A) 0 %; Eosinophils % (A) 0 %; HCT 42.8 % (34.0-46.0); HGB 12.7 gm/dL (11.4-16.0); Lymphocytes # (A) 1.6 k/uL (1.0-4.8); Lymphocytes % (A) 16 %; MCH 24.3 pg (25.0-35.0); MCHC 29.7 g/dL (31.0-37.0); MCV 81.9 fL (80.0-100.0); Monocytes # (A) 0.5 k/uL (0-1.0); Monocytes % (A) 5 %; Neutrophils # (A) 7.8 k/uL (1.3-7.7); Neutrophils % (A) 77 %; Platelet Count 196 k/uL (150-450); RBC 5.22 m/uL (3.80-5.40); RDW 19.4 % (11.5-15.5); WBC 10.2 k/uL (3.8-10.6)
[2018-07-01] MEDS ORDERED: ACETAMINOPHEN TAB 500 MG TAB PO PRN (21:42)
[2018-07-01] MEDS: METOPROLOL TARTRATE 25 MG TAB PO SCH (22:12)
[2018-07-01] MEDS: DILTIAZEM ORAL 30 MG TAB PO SCH (22:13)
[2018-07-01] MEDS: APIXABAN 5 MG TAB PO SCH (22:13)
[2018-07-01] MEDS: FUROSEMIDE 80 MG TAB PO SCH (22:13)
[2018-07-01] MEDS: methylPREDNISolone SOD SUCCI 125 MG/2 ML VIAL IV SCH (23:23)
[2018-07-02] MEDS: methylPREDNISolone SOD SUCCI 125 MG/2 ML VIAL IV SCH ×4 (05:53→23:20)
[2018-07-02] MEDS: DILTIAZEM ORAL 30 MG TAB PO SCH ×2 (08:11→21:23)
[2018-07-02] MEDS: METOPROLOL TARTRATE 25 MG TAB PO SCH ×2 (08:11→21:23)
[2018-07-02] MEDS: APIXABAN 5 MG TAB PO SCH ×2 (08:11→21:23)
[2018-07-02] MEDS: FUROSEMIDE 80 MG TAB PO SCH (08:11)
[2018-07-02] MEDS: IPRATROPIUM-ALBUTEROL 3 ML NEB INHALATION SCH ×4 (08:19→21:03)
[2018-07-02] MEDS ORDERED: ENOXAPARIN 40 MG/0.4 ML SYRINGE SQ SCH (09:00)
[2018-07-02 11:48] LABS: Glucose,Whole Blood 194 mg/dL (75-99)
--- NOTE | 2018-07-02 12:08 | P.CNPUL ---
History of Present Illness Consult date: 07/02/18 Reason for consult: dyspnea History of present illness: A very pleasant 60-year-old morbidly obese female patient who carries a BMI of 66.4 came into the emergency department yesterday because of worsening shortness of breath on top of her chronic dyspnea. She has chronic dyspnea and hypoxemia. She noted some worsening her oxygenation status and she decided to come in. She also had some rattling in her chest and she had a congested cough. She has had multiple hospitalizations for the same. She is morbidly obese and she is quite debilitated. She has history of obesity hypoventilation syndrome, obstructive sleep apnea, chronic hypoxic and hypercapnic respiratory failure in addition to COPD. She also suffers from chronic atrial fibrillation and she has chronic lower extremity edema. She noted some worsening of the leg edema. No open wounds or sores pain no fever chills or night sweats. No angina. No altered mentation. No nausea. No vomiting. No diarrhea. No abdominal pain. She apparently was using a device, a CPAP on a BiPAP device was given to her following her discharge. She states that she was doing well with a device and she noted that recently dementia hasn't been working appropriately to her liking. Overnight, the patient was kept on a BiPAP at a pressure 15/5 with an FiO2 of 50%. She is afebrile. She is hemodynamically stable. Her blood work showed a hemoglobin of 12.7 and the white cell count of 10.2. Renal function is also stable. The chest x-ray shows suboptimal findings due to her morbidly obese body habitus. She has cardiomegaly. She has also mild to moderate central vascular congestion. She is on Lasix 80 mg by mouth twice a day. She is also on bronchodilators and systemic steroids for now. Her BNP level is 4230. Review of Systems Constitutional: Reports daytime sleepiness, Reports fatigue, Reports weakness, Reports weight gain Eyes: denies blurred vision, denies bulging eye, denies decreased vision Ears: deny: decreased hearing, ear discharge, earache, tinnitus Ears, nose, mouth and throat: Denies headache, Denies sore throat Cardiovascular: Reports decreased exercise tolerance, Reports dyspnea on exertion, Reports palpitations, Reports shortness of breath Respiratory: Reports dyspnea Gastrointestinal: Denies abdominal pain, Denies diarrhea, Denies nausea, Denies vomiting Genitourinary: Reports as per HPI Musculoskeletal: Denies myalgias Musculoskeletal: bilateral: ankle swelling, absent: ankle pain, ankle stiffness Integumentary: Reports darkening of skin, Reports sores, Reports wounds Neurological: Reports gait dysfunction, Reports weakness Psychiatric: Denies anxiety, Denies depression Endocrine: Reports fatigue Allergic/Immunologic: Reports as per HPI Past Medical History Past Medical History: Atrial Fibrillation, Asthma, Heart Failure, COPD, GI Bleed , Hypertension, Pneumonia Additional Past Medical History / Comment(s): Morbid obesity, chronic hypoxic respiratory failure, chronic hypercapnic respiratory failure, CHF with diastolic dysfunction, borderline pulmonary hypertension, obstructive sleep apnea, breast hypoventilation syndrome, chronic atrial fibrillation, hypertension, chronic stage II kidney disease, chronic lower extremity edema and venous stasis, chronic microcytic anemia, acid reflux, history of peptic ulcer disease, history of smoking, history of diverticulosis and previous history of diverticulitis, history of chronic lower extremity venous stasis and ulceration, previous history of ventilator dependent respiratory failure requiring intubation back in general 2018, previous history of E. coli urinary tract infection, previous history of C. 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 Smoking Status: Former smoker - Past Family History Father Family Medical History: Eye Disorder, Osteoarthritis (OA) Additional Family Medical History / Comment(s): at age 92 from old age, had macular degeneration Mother Family Medical History: Coronary Artery Disease (CAD), Diabetes Mellitus, Hypertension, Renal Disease Additional Family Medical History / Comment(s): cabg, dialysis Medications and Allergies Home Medications Medication Instructions Recorded Confirmed Type Multivits,Th W-Ca,Fe,Oth Min 1 tab PO DAILY 03/25/18 07/01/18 History [Therapeutic M] Apixaban [Eliquis] 5 mg PO BID #60 tab 03/31/18 07/01/18 Rx Aspirin EC [Ecotrin Low Dose] 81 mg PO DAILY #30 tablet. 03/31/18 07/01/18 Rx Acetaminophen [Tylenol] 1,500 mg PO Q4-6H PRN 05/31/18 07/01/18 History Budesonide-Formot 160-4.5 Mcg 2 puff INHALATION RT-BID 05/31/18 07/01/18 History [Symbicort 160-4.5 Mcg Inhaler] Diltiazem HCl 90 mg PO BID 05/31/18 07/01/18 History Fexofenadine HCl [Sarita Allergy] 180 mg PO DAILY 05/31/18 07/01/18 History Furosemide [Lasix] 80 mg PO BID 05/31/18 07/01/18 History Metoprolol Tartrate [Lopressor] 75 mg PO BID 05/31/18 07/01/18 History Spironolactone [Aldactone] 25 mg PO DAILY 05/31/18 07/01/18 History Ipratropium-Albuterol Nebulize 3 ml INHALATION RT-QID #120 06/03/18 07/01/18 Rx [Duoneb 0.5 mg-3 mg/3 ml Soln] ampul.neb Pantoprazole [Protonix] 40 mg PO AC-BRKFST #30 tablet. 06/03/18 07/01/18 Rx Allergies Allergy/AdvReac Type Severity Reaction Status Date / Time No Known Allergies Allergy Verified 07/01/18 14:49 Physical Exam Vitals: Vital Signs Temp Pulse Pulse Resp BP BP Pulse Ox 07/02/18 11:43 108 H 07/02/18 11:33 100 07/02/18 11:05 97.6 F 76 20 128/58 90 L 07/02/18 08:39 100 07/02/18 08:20 110 H 07/02/18 08:11 99 F 107 H 20 118/72 93 L 07/02/18 03:55 76 22 07/02/18 03:54 96.9 F L 76 22 117/61 93 L 07/02/18 00:00 98.1 F 114 H 19 122/63 90 L 07/01/18 21:17 120 H 07/01/18 21:01 94 07/01/18 20:06 18 93 L 07/01/18 20:00 97.6 F 106 H 20 122/51 88 L 09/14/18 19:20 18 92 L 07/01/18 18:11 97 20 101/69 92 L 07/01/18 17:11 86 18 108/67 87 L 07/01/18 16:19 110 H 07/01/18 15:55 97 07/01/18 15:29 106 H 18 120/67 97 07/01/18 14:05 97.5 F L 56 L 24 153/65 94 L Intake and Output 07/01/18 07/02/18 07/02/18 22:59 06:59 14:59 Intake Total 350 600 240 Balance 350 600 240 Intake: Intake, IV Titration 350 Amount Azithromycin 500 mg In 250 Sodium Chloride 0.9% 250 ml @ 250 mls/hr IVPB ONCE STA Rx#:[id number] Sodium Chloride 0.9% 1, 100 000 ml @ 100 mls/hr IV . Q10H STA Rx#:[id number] Oral 600 240 Other: # Voids 1 Weight 175.5 kg Patient is lying in the bed comfortably, no acute distress, awake alert and oriented. Morbidly obese. HEENT: Normocephalic. Neck is supple. Pupils reactive. Nostrils clear. Oral cavity is moist. Ears reveal no drainage. The patient has Mallampati class IV with significant crowding of the posterior oropharynx. Neck reveals no JVD, carotid bruits, or thyromegaly. CHEST EXAMINATION: Trachea is central. Symmetrical expansion. Bibasilar diminished air entry. Minimal rhonchi. Prolonged expiration. Lung plunkett clear to auscultation minimal expiratory wheezing CARDIAC: Normal S1, S2 with no gallops. No murmurs ABDOMEN: Soft. Bowel sounds normal. No organomegaly. No abdominal bruits. Extremities: 2+ edema. No clubbing or cyanosis. Chronic venous stasis changes , no cellulitis, no open wounds or sores. Neurologically awake, alert, oriented x3 with well-coordinated movements. No focal deficits noted Skin: No rash or skin lesions. Psychiatric: Cooperative. Musculoskeletal: No joint swelling or deformity. Normal range of motion. Results - Laboratory Findings CBC and BMP: 07/01/18 16:10 07/01/18 15:28 PT/INR, D-dimer PT 10.5 sec (9.0-12.0) 07/01/18 15:28 INR 1.1 (<1.2) 07/01/18 15:28 Abnormal lab findings: Abnormal Labs 07/01/18 07/01/18 07/01/18 15:28 15:28 16:10 MCH 24.3 L MCHC 29.7 L RDW 19.4 H Neutrophils # 7.8 H Sodium 136 L Chloride 90 L Carbon Dioxide 35 H BUN 57 H Creatinine 1.05 H Glucose 130 H POC Glucose (mg/dL) Total Creatine Kinase <20 L Albumin 3.3 L 07/02/18 11:38 MCH MCHC RDW Neutrophils # Sodium Chloride Carbon Dioxide BUN Creatinine Glucose POC Glucose (mg/dL) 194 H Total Creatine Kinase Albumin - Diagnostic Findings Chest x-ray: image reviewed Assessment and Plan Plan: Assessment 1 Acute on chronic hypoxic respiratory failure, probably due to a component of COPD exacerbation. There is no evidence of pneumonia. Chronic hypoxic respiratory failure is multifactorial yet the most significant contributing factors are COPD, morbid obesity. She is on oxygen at 4 L at baseline at home. 2 chronic CHF with diastolic dysfunction ejection fraction 55-60% on 01/25/2018 patient is on oral Lasix patient has been maintained on high-dose Lasix on outpatient basis 3 obstructive sleep apnea and obesity hypoventilation syndrome 4 severe restrictive lung disease secondary to morbid obesity 5 BMI of 66.4 consistent with what was obesity 6 chronic atrial fibrillation with a controlled ventricular rate. Rate controlled. On Cardizem and metoprolol. On anticoagulation at home in the form of Eliquis 7 Hypertension 8 Chronic kidney disease stage II 9 Chronic bilateral lower activity edema and chronic venous stasis 10 GERD and history of peptic ulcer disease 11 Microcytic anemia 12 Previous history of smoking 13 Generalized deconditioning Plan Check a blood gas to assess the patient's acid base status. Asked the patient to bring her own CPAP/BiPAP machine from home for a check. Meanwhile we'll use our own machine at a pressure 15/5 with an FiO2 of 50%. Continue Lasix orally. Continue bronchodilators. Continue systemic steroids. Continue bronchodilators. Continue long-term and to coagulation with Eliquis. We'll continue to follow.
[2018-07-02] MEDS: INSULIN ASPART 100 UNIT/ML 1 ML 10 ML VIAL SQ SCH ×3 (12:18→21:23)
[2018-07-02] MEDS ORDERED: HYDROcodone/APAP 5-325MG 1 EACH TAB PO PRN (14:30)
[2018-07-02] MEDS ORDERED: MELATONIN 3 MG TABLET PO PRN (14:30)
--- NOTE | 2018-07-02 16:37 | HP ---
HISTORY AND PHYSICAL DATE OF SERVICE: 07/02/2018 CHIEF COMPLAINT: Shortness of breath. HISTORY OF PRESENT ILLNESS: This 68-year-old woman with a past medical history of CHF, history of COPD, history of pickwickian syndrome, history of morbid obesity, history of GERD, history of pneumonia, sepsis, chronic hypoxic respiratory failure, being followed by Dr. Agee in the outpatient setting, was complaining of increasing shortness of breath for the past several days. Patient apparently was also not able to use BiPAP, which was malfunctioning, and because of severe distress and pulse ox of 88%, the patient was taken to [facility] and admitted for evaluation and treatment. Chest x-ray showed some shadowing, and the possibility of fluid overload is also being considered at this time. The patient is on p.o. Lasix in the outpatient setting. There is no history of any fever, rigor or chills. No history of headache, loss of consciousness, seizures. PAST MEDICAL HISTORY: 1. History of atrial fibrillation. 2. History of asthma. 3. COPD. 4. CHF. 5. History of hypertension. 6. History of GI bleed. 7. History of cholecystectomy. HOME MEDICATIONS: 1. Aldactone 25 mg p.o. daily. 2. Protonix 40 mg before breakfast. 3. Multivitamins 1 p.o. daily. 4. Lopressor 75 mg p.o. b.i.d. 5. DuoNeb q.i.d. 6. Lasix 80 mg p.o. b.i.d. 7. Sarita 180 mg p.o. daily. 8. Diltiazem 90 mg p.o. b.i.d. 9. Symbicort 160/4.5 two puffs b.i.d. 10.Ecotrin 81 mg p.o. daily. 11.Eliquis 5 mg p.o. b.i.d. 12.Tylenol 1500 mg q.4 p.r.n. ALLERGIES: NONE. FAMILY HISTORY: History of DJD, history of eye disorder. SOCIAL HISTORY: Previous history of smoking. No current smoking or alcohol intake. REVIEW OF SYSTEMS: ENT: No diminished hearing. No diminished vision. CARDIOVASCULAR SYSTEM: As mentioned earlier. RESPIRATORY SYSTEM: As mentioned earlier. GI: No nausea, vomiting. : No dysuria or retention. NERVOUS SYSTEM: No numbness, weakness. ALLERGY/IMMUNOLOGY: No asthma, hayfever. MUSCULOSKELETAL: As mentioned earlier. HEMATOLOGY/ONCOLOGY: No history of anemia. ENDOCRINE: As mentioned earlier. CONSTITUTIONAL: As mentioned earlier. DERMATOLOGY: Negative. RHEUMATOLOGY: Negative. PSYCHIATRY: As mentioned earlier. PHYSICAL EXAMINATION: Patient alert and oriented x3. Pulse is 76, blood pressure 128/58, respiration 20, temperature 97.6, pulse ox 90% on 6 L. HEENT: Conjunctivae normal. Oral mucosa moist. NECK: No jugular venous distention. No carotid bruit. No lymph node enlargement. CARDIOVASCULAR SYSTEM: S1, S2 muffled. RESPIRATORY SYSTEM: Breath sounds diminished at the bases. A few scattered rhonchi and crackles. ABDOMEN: Soft, obese, non-tender. LEGS: Minimal bilateral leg edema. NERVOUS SYSTEM: Higher functions as mentioned earlier. Moves all 4 limbs. No focal motor or sensory deficit. LYMPHATICS: No lymph node palpable in neck, axillae or groin. JOINTS: No active deforming arthropathy. LABS: WBC 10.2, hemoglobin 12.7. INR is 1.1. Sodium 136, potassium 5.1, creatinine is 1.05. ASSESSMENT: 1. Shortness of breath, possibly multifactorial, chronic obstructive pulmonary disease, acute exacerbation, as well as congestive heart failure, acute exacerbation, with acute on chronic diastolic dysfunction, ejection fraction 50% to 55%, with acute hypoxic, hypercarbic respiratory failure. 2. Pickwickian syndrome with restrictive lung disease. 3. History of recent pneumonia. 4. History of chronic obstructive pulmonary disease. 5. History of super morbid obesity with a body mass index of 66.4. 6. History of asthma. 7. History of atrial fibrillation. 8. History of gastroesophageal reflux disease. 9. History of pneumonia. 10.History of sepsis. 11.History of chronic hypoxic respiratory failure, on home oxygen. 12.Sleep apnea with CPAP. 13.History of methicillin-resistant Staphylococcus aureus. 14.History of cholecystitis. 15.Remote history of nicotine dependence. RECOMMENDATIONS AND DISCUSSION: I recommend to continue current medication, continue symptomatic treatment. I recommend continuing with the BiPAP. Continue with the bronchodilators. Continue with the diuretics. Monitor fluid/electrolyte balance closely. I would also recommend pulmonary consultation. IV steroids. Monitor blood sugars closely. Guarded prognosis because of multiple complex medical issues. The patient is already on apixaban, Eliquis 5 mg p.o. b.i.d. Further recommendations to follow. MMODL / IJN: [id number] /
[2018-07-02 16:38] LABS: Glucose,Whole Blood 184 mg/dL (75-99)
[2018-07-02] MEDS: cefTRIAXone IN SWFI 1,000 MG/10 ML SYRINGE IVP SCH (17:10)
[2018-07-02 20:58] LABS: Glucose,Whole Blood 168 mg/dL (75-99)
[2018-07-02] MEDS: FORMOTEROL FUMARATE 20 MCG/2 ML NEBU INHALATION SCH (21:03)
[2018-07-02] MEDS: BUDESONIDE 1 MG/2 ML NEBU INHALATION SCH (21:03)
[2018-07-03 06:13] LABS: Glucose,Whole Blood 143 mg/dL (75-99)
[2018-07-03] MEDS: methylPREDNISolone SOD SUCCI 125 MG/2 ML VIAL IV SCH (06:17)
[2018-07-03] MEDS: INSULIN ASPART 100 UNIT/ML 1 ML 10 ML VIAL SQ SCH ×4 (06:18→21:05)
[2018-07-03] MEDS: PANTOPRAZOLE 40 MG TABLET PO SCH (06:19)
[2018-07-03 06:22] LABS: Anisocytosis Slight; Basophils % (A) 0 %; Eosinophils % (A) 0 %; HCT 42.4 % (34.0-46.0); HGB 12.7 gm/dL (11.4-16.0); Hypochromasia Marked; Lymphocytes # (A) 1.2 k/uL (1.0-4.8); Lymphocytes % (A) 9 %; MCH 24.6 pg (25.0-35.0); MCHC 30.1 g/dL (31.0-37.0); MCV 81.7 fL (80.0-100.0); Mean Platelet Volume 8.7; Microcytosis Slight; Monocytes # (A) 0.4 k/uL (0-1.0); Monocytes % (A) 3 %; Neutrophils # (A) 11.7 k/uL (1.3-7.7); Neutrophils % (A) 87 %; Platelet Count 217 k/uL (150-450); Poikilocytosis Slight; RBC 5.19 m/uL (3.80-5.40); RDW 19.4 % (11.5-15.5); WBC 13.4 k/uL (3.8-10.6)
[2018-07-03 06:31] LABS: Calcium 10.6 mg/dL (8.4-10.2); Potassium 4.7 mmol/L (3.5-5.1)
[2018-07-03] MEDS: BUDESONIDE 1 MG/2 ML NEBU INHALATION SCH ×2 (07:26→20:13)
[2018-07-03] MEDS: IPRATROPIUM-ALBUTEROL 3 ML NEB INHALATION SCH ×4 (07:26→20:13)
[2018-07-03] MEDS: FORMOTEROL FUMARATE 20 MCG/2 ML NEBU INHALATION SCH ×2 (07:26→20:13)
[2018-07-03] MEDS: DILTIAZEM ORAL 30 MG TAB PO SCH ×2 (08:01→22:01)
[2018-07-03] MEDS: ASPIRIN 81 MG PO SCH (08:01)
[2018-07-03] MEDS: SPIRONOLACTONE 25 MG TAB PO SCH (08:01)
[2018-07-03] MEDS: APIXABAN 5 MG TAB PO SCH ×2 (08:01→21:05)
[2018-07-03] MEDS: LORATADINE 10 MG TAB PO SCH (08:01)
[2018-07-03] MEDS: METOPROLOL TARTRATE 25 MG TAB PO SCH ×2 (08:01→21:05)
--- NOTE | 2018-07-03 11:06 | P.PN ---
Subjective Progress Note Date: 07/03/18 Principal diagnosis: Acute on chronic hypoxic rest she failure, due to a component of COPD exacerbation, chronic CHF with diastolic dysfunction, obstructive sleep apnea and obesity hypoventilation syndrome A very pleasant 60-year-old morbidly obese female patient who carries a BMI of 66.4 came into the emergency department yesterday because of worsening shortness of breath on top of her chronic dyspnea. She has chronic dyspnea and hypoxemia. She noted some worsening her oxygenation status and she decided to come in. She also had some rattling in her chest and she had a congested cough. She has had multiple hospitalizations for the same. She is morbidly obese and she is quite debilitated. She has history of obesity hypoventilation syndrome, obstructive sleep apnea, chronic hypoxic and hypercapnic respiratory failure in addition to COPD. She also suffers from chronic atrial fibrillation and she has chronic lower extremity edema. She noted some worsening of the leg edema. No open wounds or sores pain no fever chills or night sweats. No angina. No altered mentation. No nausea. No vomiting. No diarrhea. No abdominal pain. She apparently was using a device, a CPAP on a BiPAP device was given to her following her discharge. She states that she was doing well with a device and she noted that recently dementia hasn't been working appropriately to her liking. Overnight, the patient was kept on a BiPAP at a pressure 15/5 with an FiO2 of 50%. She is afebrile. She is hemodynamically stable. Her blood work showed a hemoglobin of 12.7 and the white cell count of 10.2. Renal function is also stable. The chest x-ray shows suboptimal findings due to her morbidly obese body habitus. She has cardiomegaly. She has also mild to moderate central vascular congestion. She is on Lasix 80 mg by mouth twice a day. She is also on bronchodilators and systemic steroids for now. Her BNP level is 4230. On 07/03/2018 patient seen in follow-up on selective care unit. She denies any distress, lung sounds are diminished, no wheezing, no rhonchi, no rales, patient wore her BiPAP last night, currently on nasal cannula, her pulse ox is 89% on 6 L per nasal cannula, she is afebrile, vital signs are stable, no cough , no phlegm production, sitting reports episodes of confusion last night, and she was hallucinating. No delirium noted this morning, we will drop the dose of Solu-Medrol to 40 mg every 12 hours. His labs were reviewed, WBCs 13.4, renal profile has worsened a bit BUN is 73, creatinine is 1.37, patient is not on any diuretics, she is tolerating oral intake. No significant edema in bilateral lower extremities. Chronic venous stasis changes noted bilaterally. Objective - Vital Signs Vital signs: Vital Signs Temp 96.8 F L 07/03/18 08:10 Pulse 89 07/03/18 08:10 Resp 22 07/03/18 08:10 BP 121/75 07/03/18 08:10 Pulse Ox 89 L 07/03/18 08:10 Intake & Output 07/02/18 07/03/18 07/03/18 18:59 06:59 18:59 Intake Total 700 222 Balance 700 222 Weight 174.5 kg Intake: Oral 700 222 Other: # Voids 1 # Bowel Movements 1 - Exam Patient is lying in the bed comfortably, no acute distress, awake alert and oriented. Morbidly obese. HEENT: Normocephalic. Neck is supple. Pupils reactive. Nostrils clear. Oral cavity is moist. Ears reveal no drainage. The patient has Mallampati class IV with significant crowding of the posterior oropharynx. Neck reveals no JVD, carotid bruits, or thyromegaly. CHEST EXAMINATION: Trachea is central. Symmetrical expansion. Bibasilar diminished air entry. Minimal rhonchi. Prolonged expiration. Lung plunkett clear, he mentioned at the bases. CARDIAC: Normal S1, S2 with no gallops. No murmurs ABDOMEN: Soft. Bowel sounds normal. No organomegaly. No abdominal bruits. Extremities: 2+ edema. No clubbing or cyanosis. Chronic venous stasis changes , no cellulitis, no open wounds or sores. Neurologically awake, alert, oriented x3 with well-coordinated movements. No focal deficits noted Skin: No rash or skin lesions. Psychiatric: Cooperative. Musculoskeletal: No joint swelling or deformity. Normal range of motion. - Labs CBC & Chem 7: 07/03/18 06:09 07/03/18 06:09 Labs: Abnormal Lab Results - Last 24 Hours (Table) 07/02/18 07/02/18 07/02/18 Range/Units 11:38 16:10 20:56 WBC (3.8-10.6) k/uL MCH (25.0-35.0) pg MCHC (31.0-37.0) g/dL RDW (11.5-15.5) % Neutrophils # (1.3-7.7) k/uL Chloride (98-107) mmol/L Carbon Dioxide (22-30) mmol/L BUN (7-17) mg/dL Creatinine (0.52-1.04) mg/dL Glucose (74-99) mg/dL POC Glucose (mg/dL) 194 H 184 H 168 H (75-99) mg/dL Calcium (8.4-10.2) mg/dL 07/03/18 07/03/18 07/03/18 Range/Units 06:09 06:09 06:12 WBC 13.4 H (3.8-10.6) k/uL MCH 24.6 L (25.0-35.0) pg MCHC 30.1 L (31.0-37.0) g/dL RDW 19.4 H (11.5-15.5) % Neutrophils # 11.7 H (1.3-7.7) k/uL Chloride 92 L (98-107) mmol/L Carbon Dioxide 38 H (22-30) mmol/L BUN 73 H (7-17) mg/dL Creatinine 1.37 H (0.52-1.04) mg/dL Glucose 145 H (74-99) mg/dL POC Glucose (mg/dL) 143 H (75-99) mg/dL Calcium 10.6 H (8.4-10.2) mg/dL Assessment and Plan Plan: 1 Acute on chronic hypoxic respiratory failure, probably due to a component of COPD exacerbation. There is no evidence of pneumonia. Chronic hypoxic respiratory failure is multifactorial yet the most significant contributing factors are COPD, morbid obesity. She is on oxygen at 4 L at baseline at home. 2 chronic CHF with diastolic dysfunction ejection fraction 55-60% on 01/25/2018 patient is on oral Lasix patient has been maintained on high-dose Lasix on outpatient basis 3 obstructive sleep apnea and obesity hypoventilation syndrome 4 severe restrictive lung disease secondary to morbid obesity 5 BMI of 66.4 consistent with what was obesity 6 chronic atrial fibrillation with a controlled ventricular rate. Rate controlled. On Cardizem and metoprolol. On anticoagulation at home in the form of Eliquis 7 Hypertension 8 Chronic kidney disease stage II 9 Chronic bilateral lower activity edema and chronic venous stasis 10 GERD and history of peptic ulcer disease 11 Microcytic anemia 12 Previous history of smoking 13 Generalized deconditioning Plan: Continue holding the diuretics, and there has been worsening of patient's renal profile. We'll cut the Solu-Medrol to 40 mg every 12 hours, patient is not bronchospastic or congested on today's exam. Continue BiPAP support at night and as needed during day. Continue antibiotics. I performed a history & physical examination of the patient and discussed their management with my nurse practitioner, Maru Meyers. I reviewed the nurse practitioner's note and agree with the documented findings and plan of care. Lung sounds are diminished. The findings and the impression was discussed with the patient. I attest to the documentation by the nurse practitioner. Time with Patient: Less than 30
[2018-07-03 11:18] LABS: Glucose,Whole Blood 158 mg/dL (75-99)
[2018-07-03] MEDS ORDERED: MULTIVITAMINS, THERA 1 EACH TAB PO SCH (12:00)
[2018-07-03] MEDS: cefTRIAXone IN SWFI 1,000 MG/10 ML SYRINGE IVP SCH (15:57)
[2018-07-03 17:14] LABS: Glucose,Whole Blood 151 mg/dL (75-99)
[2018-07-03] MEDS: methylPREDNISolone SOD SUCCI 40 MG/ML 1 ML VIAL IV SCH (17:54)
[2018-07-03 20:18] LABS: Glucose,Whole Blood 245 mg/dL (75-99)
[2018-07-03 20:20] LABS: Glucose,Whole Blood 226 mg/dL (75-99)
--- NOTE | 2018-07-03 22:20 | PN ---
PROGRESS NOTE DATE OF SERVICE: 07/03/2018. HISTORY: This 68-year-old woman who was admitted with shortness of breath which is multifactorial, COPD, CHF exacerbation, is closely monitored at this time. Apparently the patient's BiPAP at home was not working properly. Pulmonary is following the patient closely. The patient is on high-dose IV steroids and bronchodilators also. The patient at baseline is on 4 L oxygen at home at this time. PAST MEDICAL HISTORY: Reviewed. REVIEW OF SYSTEMS: CARDIOVASCULAR: No angina. RESPIRATORY: As mentioned. : As mentioned earlier. CURRENT MEDICATIONS: Current medications are reviewed include: 1. Tylenol 500 mg every 6 hours p.r.n. 2. Hilham 5 mg every 6 hours p.r.n. 3. DuoNeb q.i.d. 4. Eliquis 5 mg b.i.d. 5. Aspirin 81 mg daily. 6. Pulmicort 1 mg b.i.d. 7. Rocephin 1 g daily. 8. Cardizem 90 mg b.i.d. 9. Perforomist 20 mcg b.i.d. 10.NovoLog scale. 11.Claritin 10 mg. 12.Melatonin 3 mg at bedtime p.r.n. 13.Solu-Medrol 40 IV b.i.d. 14.Lopressor 70 mg p.o. b.i.d. 15.Multivitamins 1 p.o. daily. 16.Protonix 40 mg daily. 17.Aldactone 25 mg p.o. daily. PHYSICAL EXAM: Patient is alert, oriented x2. Pulse is 106. Blood pressure 142/97, respirations 20, temperature 98 degrees, pulse ox 91% on 6 L. HEENT: Conjunctivae normal. Oral mucosa moist. NECK: No jugular venous distention. No lymph node enlargement. CARDIOVASCULAR: S1 and S2 muffled. LUNGS: Breath sounds diminished at the bases. Bilateral scattered rhonchi. Work of breathing is markedly increased. ABDOMEN: Soft, nontender. No mass palpable. NERVOUS SYSTEM: No focal deficits. LAB STUDIES: At this time show WBC 13.4, sodium 140, potassium 4.7, creatinine is 1.37, calcium is 10.6. ASSESSMENT: 1. Shortness of breath possibly multifactorial chronic obstructive pulmonary disease acute exacerbation mostly and congestive heart failure acute exacerbation, acute on chronic diastolic dysfunction, ejection fraction 50% to 55% with acute hypoxic hypercarbic respiratory failure. 2. Pickwickian syndrome with restrictive lung disease. 3. History of recent pneumonia. 4. History of super morbid obesity with body mass index 66.4. 5. History of asthma. 6. History of atrial fibrillation. 7. Gastroesophageal reflux disease. 8. History of pneumonia. 9. History of sepsis. 10.History of chronic hypoxic respiratory failure on home O2. 11.Sleep apnea, on CPAP. 12.History of MRSA. 13.History of cholecystitis. 14.Remote history of nicotine dependence. RECOMMENDATIONS: Recommend to continue current management and optimize the bronchodilator treatment. Continue the empiric antibiotics. Also recommend to monitor creatinine closely. Steroids have been reduced by Pulmonary. We will monitor the patient closely because of multiple complex medical issues. Prognosis guarded. Further recommendations to follow. MMODL / IJN: [id number] /
[2018-07-04 05:55] VITALS: BP 116/75; RESP 16; TEMP 96.1
[2018-07-04] MEDS: methylPREDNISolone SOD SUCCI 40 MG/ML 1 ML VIAL IV SCH (06:08)
[2018-07-04 07:02] LABS: Glucose,Whole Blood 136 mg/dL (75-99)
[2018-07-04] MEDS: FORMOTEROL FUMARATE 20 MCG/2 ML NEBU INHALATION SCH (08:12)
[2018-07-04] MEDS: BUDESONIDE 1 MG/2 ML NEBU INHALATION SCH (08:12)
[2018-07-04] MEDS: IPRATROPIUM-ALBUTEROL 3 ML NEB INHALATION SCH ×2 (08:12→12:05)
[2018-07-04] MEDS: SPIRONOLACTONE 25 MG TAB PO SCH (08:52)
[2018-07-04] MEDS: APIXABAN 5 MG TAB PO SCH (08:52)
[2018-07-04] MEDS: LORATADINE 10 MG TAB PO SCH (08:52)
[2018-07-04] MEDS: ASPIRIN 81 MG PO SCH (08:52)
[2018-07-04] MEDS: DILTIAZEM ORAL 30 MG TAB PO SCH (08:52)
[2018-07-04] MEDS: PANTOPRAZOLE 40 MG TABLET PO SCH (08:52)
[2018-07-04] MEDS: METOPROLOL TARTRATE 25 MG TAB PO SCH (08:52)
[2018-07-04] MEDS: INSULIN ASPART 100 UNIT/ML 1 ML 10 ML VIAL SQ SCH (08:53)
[2018-07-04 09:03] LABS: Anisocytosis Slight; Basophils % (A) 0 %; Eosinophils % (A) 0 %; HCT 44.2 % (34.0-46.0); HGB 12.8 gm/dL (11.4-16.0); Hypochromasia Marked; Lymphocytes # (A) 1.2 k/uL (1.0-4.8); Lymphocytes % (A) 8 %; MCH 24.1 pg (25.0-35.0); MCV 83.1 fL (80.0-100.0); Mean Platelet Volume 8.3; Microcytosis Slight; Monocytes # (A) 0.5 k/uL (0-1.0); Monocytes % (A) 4 %; Neutrophils # (A) 12.2 k/uL (1.3-7.7); Neutrophils % (A) 87 %; Platelet Count 236 k/uL (150-450); Poikilocytosis Slight; RBC 5.32 m/uL (3.80-5.40); RDW 18.9 % (11.5-15.5)
[2018-07-04 10:11] LABS: Calcium 10.7 mg/dL (8.4-10.2); Potassium 4.8 mmol/L (3.5-5.1)
--- NOTE | 2018-07-04 12:02 | P.PN ---
Subjective Progress Note Date: 07/04/18 Principal diagnosis: Acute on chronic hypoxic rest she failure, due to a component of COPD exacerbation, chronic CHF with diastolic dysfunction, obstructive sleep apnea and obesity hypoventilation syndrome A very pleasant 60-year-old morbidly obese female patient who carries a BMI of 66.4 came into the emergency department yesterday because of worsening shortness of breath on top of her chronic dyspnea. She has chronic dyspnea and hypoxemia. She noted some worsening her oxygenation status and she decided to come in. She also had some rattling in her chest and she had a congested cough. She has had multiple hospitalizations for the same. She is morbidly obese and she is quite debilitated. She has history of obesity hypoventilation syndrome, obstructive sleep apnea, chronic hypoxic and hypercapnic respiratory failure in addition to COPD. She also suffers from chronic atrial fibrillation and she has chronic lower extremity edema. She noted some worsening of the leg edema. No open wounds or sores pain no fever chills or night sweats. No angina. No altered mentation. No nausea. No vomiting. No diarrhea. No abdominal pain. She apparently was using a device, a CPAP on a BiPAP device was given to her following her discharge. She states that she was doing well with a device and she noted that recently dementia hasn't been working appropriately to her liking. Overnight, the patient was kept on a BiPAP at a pressure 15/5 with an FiO2 of 50%. She is afebrile. She is hemodynamically stable. Her blood work showed a hemoglobin of 12.7 and the white cell count of 10.2. Renal function is also stable. The chest x-ray shows suboptimal findings due to her morbidly obese body habitus. She has cardiomegaly. She has also mild to moderate central vascular congestion. She is on Lasix 80 mg by mouth twice a day. She is also on bronchodilators and systemic steroids for now. Her BNP level is 4230. On 07/03/2018 patient seen in follow-up on selective care unit. She denies any distress, lung sounds are diminished, no wheezing, no rhonchi, no rales, patient wore her BiPAP last night, currently on nasal cannula, her pulse ox is 89% on 6 L per nasal cannula, she is afebrile, vital signs are stable, no cough , no phlegm production, sitting reports episodes of confusion last night, and she was hallucinating. No delirium noted this morning, we will drop the dose of Solu-Medrol to 40 mg every 12 hours. His labs were reviewed, WBCs 13.4, renal profile has worsened a bit BUN is 73, creatinine is 1.37, patient is not on any diuretics, she is tolerating oral intake. No significant edema in bilateral lower extremities. Chronic venous stasis changes noted bilaterally. On 07/04/2018 patient seen in follow-up on the fifth floor. On 6 L per nasal cannula, she wears a BiPAP at night, he is awake and alert, and in no acute distress. He states her breathing is improving, lung sounds reveal better air entry bilaterally, with faint end expiratory wheezing, today's labs have been reviewed, and showed slight improvement of renal function, with B UN of 77, and creatinine down to 1.19 from 1.37. White Count is 14.0, hemoglobin is 12.8. She denies chest pain, diuretics remain on hold. She remains on nebulized bronchodilators, IV steroids, and Rocephin. Objective - Vital Signs Vital signs: Vital Signs Temp 96.1 F L 07/04/18 05:00 Pulse 92 07/04/18 08:33 Resp 16 07/04/18 05:00 BP 116/75 07/04/18 05:00 Pulse Ox 93 L 07/04/18 05:00 Intake & Output 07/03/18 07/04/18 07/04/18 18:59 06:59 18:59 Intake Total 222 1180 Balance 222 1180 Intake: Oral 222 1180 Other: # Voids 1 2 - Exam Patient is lying in the bed comfortably, no acute distress, awake alert and oriented. Morbidly obese. HEENT: Normocephalic. Neck is supple. Pupils reactive. Nostrils clear. Oral cavity is moist. Ears reveal no drainage. The patient has Mallampati class IV with significant crowding of the posterior oropharynx. Neck reveals no JVD, carotid bruits, or thyromegaly. CHEST EXAMINATION: Trachea is central. Symmetrical expansion. Prolonged expiration. Better air entry noted bilaterally on today's exam, with faint end expiratory wheezes CARDIAC: Normal S1, S2 with no gallops. No murmurs ABDOMEN: Soft. Bowel sounds normal. No organomegaly. No abdominal bruits. Extremities: 2+ edema. No clubbing or cyanosis. Chronic venous stasis changes , no cellulitis, no open wounds or sores. Neurologically awake, alert, oriented x3 with well-coordinated movements. No focal deficits noted Skin: No rash or skin lesions. Psychiatric: Cooperative. Musculoskeletal: No joint swelling or deformity. Normal range of motion. - Labs CBC & Chem 7: 07/04/18 08:35 07/04/18 08:35 Labs: Abnormal Lab Results - Last 24 Hours (Table) 07/03/18 07/03/18 07/03/18 Range/Units 17:12 20:16 20:18 WBC (3.8-10.6) k/uL MCH (25.0-35.0) pg MCHC (31.0-37.0) g/dL RDW (11.5-15.5) % Neutrophils # (1.3-7.7) k/uL Chloride (98-107) mmol/L Carbon Dioxide (22-30) mmol/L BUN (7-17) mg/dL Creatinine (0.52-1.04) mg/dL Glucose (74-99) mg/dL POC Glucose (mg/dL) 151 H 245 H 226 H (75-99) mg/dL Calcium (8.4-10.2) mg/dL 07/04/18 07/04/18 07/04/18 Range/Units 07:01 08:35 08:35 WBC 14.0 H (3.8-10.6) k/uL MCH 24.1 L (25.0-35.0) pg MCHC 29.0 L (31.0-37.0) g/dL RDW 18.9 H (11.5-15.5) % Neutrophils # 12.2 H (1.3-7.7) k/uL Chloride 91 L (98-107) mmol/L Carbon Dioxide 37 H (22-30) mmol/L BUN 77 H (7-17) mg/dL Creatinine 1.19 H (0.52-1.04) mg/dL Glucose 128 H (74-99) mg/dL POC Glucose (mg/dL) 136 H (75-99) mg/dL Calcium 10.7 H (8.4-10.2) mg/dL Assessment and Plan Plan: 1 Acute on chronic hypoxic respiratory failure, probably due to a component of COPD exacerbation. There is no evidence of pneumonia. Chronic hypoxic respiratory failure is multifactorial yet the most significant contributing factors are COPD, morbid obesity. She is on oxygen at 4 L at baseline at home. 2 chronic CHF with diastolic dysfunction ejection fraction 55-60% on 01/25/2018 patient is on oral Lasix patient has been maintained on high-dose Lasix on outpatient basis 3 obstructive sleep apnea and obesity hypoventilation syndrome 4 severe restrictive lung disease secondary to morbid obesity 5 BMI of 66.4 consistent with what was obesity 6 chronic atrial fibrillation with a controlled ventricular rate. Rate controlled. On Cardizem and metoprolol. On anticoagulation at home in the form of Eliquis 7 Hypertension 8 Chronic kidney disease stage II 9 Chronic bilateral lower activity edema and chronic venous stasis 10 GERD and history of peptic ulcer disease 11 Microcytic anemia 12 Previous history of smoking 13 Generalized deconditioning Plan: Diuretics remain on hold, continue using BiPAP support at night and as needed. Renal profile is improving. Patient reports improvement in terms of dyspnea. Continue IV steroids, and anticoagulation. I performed a history & physical examination of the patient and discussed their management with my nurse practitioner, Maru Meyers. I reviewed the nurse practitioner's note and agree with the documented findings and plan of care. Lung sounds are diminished, with faint end expiratory wheezes. The findings and the impression was discussed with the patient. I attest to the documentation by the nurse practitioner. Time with Patient: Less than 30
[2018-07-04 12:05] LABS: Glucose,Whole Blood 133 mg/dL (75-99)
[2018-07-04 12:09] VITALS: PULSE 94
--- NOTE | 2018-07-04 21:03 | DS ---
DISCHARGE SUMMARY DATE OF SERVICE: 07/04/2018 FINAL DIAGNOSES: 1. Shortness of breath, possibly multifactorial, with chronic obstructive pulmonary disease, acute exacerbation mostly and congestive heart failure, acute exacerbation, with acute on chronic diastolic dysfunction, ejection fraction 50% to 55%, with acute hypoxic hypercarbic respiratory failure. 2. Pickwickian syndrome with restrictive lung disease. 3. History of recent pneumonia. 4. History of super morbid obesity with a body mass index of 66.5. 5. History of asthma. 6. History of atrial fibrillation. 7. Gastroesophageal reflux disease. 8. History of pneumonia. 9. History of sepsis. 10.History of chronic hypoxic respiratory failure, on home oxygen. 11.Sleep apnea, on CPAP. 12.History of methicillin-resistant Staphylococcus aeruginosa. 13.History of cholecystitis. 14.Remote history of nicotine dependence. DISCHARGE ADVICE AND MEDICATIONS: The patient will be discharged in stable condition with guarded prognosis. HISTORY OF PRESENT ILLNESS: This 68-year-old woman with a past medical history of multiple medical problems was admitted with COPD, acute exacerbation, as well as CHF, acute exacerbation. Patient was treated in conjunction with Cardiology and Pulmonology. Patient improved significantly. The patient also had some issues with home CPAP, which is to be followed up by the returned case inspector. On exam, vital signs are stable. CARDIOVASCULAR SYSTEM: S1, S2 muffled. ABDOMEN: Soft. The patient will be discharged home in a stable condition with guarded prognosis. DISCHARGE ADVICE AND MEDICATIONS: 1. Diet is cardiac. 2. Activity limited until followup. 3. Follow up with Dr. Carrasco in 2 to 3 days. 4. Follow up with Dr. Bazan as recommended. 5. Symbicort 160/4.5 two puffs b.i.d. 6. Diltiazem 90 mg p.o. b.i.d. 7. Sarita 180 mg p.o. daily. 8. Lopressor 70 mg p.o. b.i.d. 9. Multivitamins 1 p.o. daily. 10.Aldactone 25 mg p.o. daily. 11.Tylenol p.r.n. 12.Eliquis 5 mg p.o. b.i.d. 13.Ecotrin 81 mg p.o. daily. 14.Ceftin 500 mg p.o. b.i.d. for 3 days. 15.DuoNeb q.i.d. and p.r.n. 16.Protonix 40 mg p.o. b.i.d. 17.Follow up with the training instructor as advised. Once again, the patient will be discharged in stable condition with guarded prognosis. TRISHA / PAMELA: [id number] /
== END 2018-07-04 16:05 | disposition home health service (06) | DRG 190 ==
LOC: SUPCPDRO 13:56 → EC 13:56 → 6SEL 14:16 → 5MS5E 07-03 15:04
PROVIDERS: ADMIT Hospitalist; ATTEND Hospitalist
PROC: 5A09457 Assistance with Respiratory Ventilation, 24-96 Consecutive Hours, Continuous Positive Airway Pressure (ICD-10-PCS; principal; 2018-07-01)
DX: J44.1 Chronic obstructive pulmonary disease with (acute) exacerbation (principal); I50.33 Acute on chronic diastolic (congestive) heart failure; J96.22 Acute and chronic respiratory failure with hypercapnia; J96.21 Acute and chronic respiratory failure with hypoxia; I13.0 Hypertensive heart and chronic kidney disease with heart failure and stage 1 through stage 4 chronic kidney disease, or unspecified chronic kidney disease; E66.2 Morbid (severe) obesity with alveolar hypoventilation; Z68.44 Body mass index [BMI] 60.0-69.9, adult; J98.4 Other disorders of lung; I27.20 Pulmonary hypertension, unspecified; I48.2 Chronic atrial fibrillation; F03.90 Unspecified dementia, unspecified severity, without behavioral disturbance, psychotic disturbance, mood disturbance, and anxiety; I87.8 Other specified disorders of veins; G47.33 Obstructive sleep apnea (adult) (pediatric); D50.9 Iron deficiency anemia, unspecified; N18.2 Chronic kidney disease, stage 2 (mild); K21.9 Gastro-esophageal reflux disease without esophagitis; H91.91 Unspecified hearing loss, right ear; F40.240 Claustrophobia; Z99.81 Dependence on supplemental oxygen; Z79.82 Long term (current) use of aspirin; Z79.01 Long term (current) use of anticoagulants; Z79.51 Long term (current) use of inhaled steroids; Z79.899 Other long term (current) drug therapy; Z87.891 Personal history of nicotine dependence; Z87.01 Personal history of pneumonia (recurrent); Z86.14 Personal history of Methicillin resistant Staphylococcus aureus infection; Z87.11 Personal history of peptic ulcer disease; Z86.19 Personal history of other infectious and parasitic diseases; Z90.49 Acquired absence of other specified parts of digestive tract; Z87.440 Personal history of urinary (tract) infections; Z82.61 Family history of arthritis; Z83.3 Family history of diabetes mellitus; Z82.49 Family history of ischemic heart disease and other diseases of the circulatory system; Z84.1 Family history of disorders of kidney and ureter
CPT/HCPCS: 36415; 71046; 80048; 80053; 82550; 82553; 83036; 83735; 83880; 84484; 85025; 85610; 85730; 93005; 94640; 94660; 96361; 96365; 96366; 96375; 99291

== ENCOUNTER 2018-07-28 12:47 | Inpatient (IN) | payer MEDICARE, MEDICAID ==
[2018-07-28] MEDS ORDERED: IPRATROPIUM-ALBUTEROL 3 ML NEB INHALATION STA (12:59)
[2018-07-28] MEDS ORDERED: DEXAMETHASONE SOD PHOSPHATE 10 MG/ML 1 ML VIAL IV STA (13:37)
--- NOTE | 2018-07-28 13:39 | ED ---
General Adult HPI - General Chief complaint: Shortness of Breath Stated complaint: LIZZIE Time Seen by Provider: 07/28/18 12:59 Source: patient, EMS, RN notes reviewed, old records reviewed Mode of arrival: EMS - History of Present Illness Initial comments: 60-year-old female history of COPD, atrial fibrillation, congestive heart failure presenting for evaluation of worsening dyspnea. Patient was recommended by her home care physician to seek evaluation. She does follow with pulmonology on a regular basis. She has had some increased edema on x-ray according to her daughter. She was taking additional Lasix but has not had symptomatically improved and in her breathing. She's had cough which is productive of white sputum. No fever or chills. Denies any worsening lower extremity edema, she does have chronic lower extremity edema and venous stasis. No pain complaints, no chest pain. No vomiting or diarrhea. - Related Data Home Medications Medication Instructions Recorded Confirmed Multivits,Th W-Ca,Fe,Oth Min 1 tab PO DAILY 03/25/18 07/28/18 [Therapeutic M] Budesonide-Formot 160-4.5 Mcg 2 puff INHALATION RT-BID 05/31/18 07/28/18 [Symbicort 160-4.5 Mcg Inhaler] Diltiazem HCl 90 mg PO BID 05/31/18 07/28/18 Fexofenadine HCl [Sarita Allergy] 180 mg PO DAILY 05/31/18 07/28/18 Metoprolol Tartrate [Lopressor] 75 mg PO BID 05/31/18 07/28/18 Spironolactone [Aldactone] 25 mg PO DAILY 05/31/18 07/28/18 Previous Rx's Medication Instructions Recorded Apixaban [Eliquis] 5 mg PO BID #60 tab 03/31/18 Aspirin EC [Ecotrin Low Dose] 81 mg PO DAILY #30 tablet. 03/31/18 Ipratropium-Albuterol Nebulize 3 ml INHALATION RT-QID #120 06/03/18 [Duoneb 0.5 mg-3 mg/3 ml Soln] ampul.neb Pantoprazole [Protonix] 40 mg PO AC-BRKFST #30 tablet. 06/03/18 Acetaminophen Tab [Tylenol] 500 mg PO Q6HR PRN tab 07/04/18 Allergies Allergy/AdvReac Type Severity Reaction Status Date / Time No Known Allergies Allergy Verified 07/28/18 13:27 Review of Systems ROS Statement: Those systems with pertinent positive or pertinent negative responses have been documented in the HPI. ROS Other: All systems not noted in ROS Statement are negative. Past Medical History Past Medical History: Atrial Fibrillation, Asthma, Heart Failure, COPD, GI Bleed , Hypertension, Pneumonia Additional Past Medical History / Comment(s): Morbid obesity, chronic hypoxic respiratory failure, chronic hypercapnic respiratory failure, CHF with diastolic dysfunction, borderline pulmonary hypertension, obstructive sleep apnea, breast hypoventilation syndrome, chronic atrial fibrillation, hypertension, chronic stage II kidney disease, chronic lower extremity edema and venous stasis, chronic microcytic anemia, acid reflux, history of peptic ulcer disease, history of smoking, history of diverticulosis and previous history of diverticulitis, history of chronic lower extremity venous stasis and ulceration, previous history of ventilator dependent respiratory failure requiring intubation back in general 2018, previous history of E. coli urinary tract infection, previous history of C. 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 Past Psychological History: No Psychological Hx Reported Smoking Status: Former smoker Past Alcohol Use History: None Reported Past Drug Use History: None Reported - Past Family History Father Family Medical History: Eye Disorder, Osteoarthritis (OA) Additional Family Medical History / Comment(s): at age 92 from old age, had macular degeneration Mother Family Medical History: Coronary Artery Disease (CAD), Diabetes Mellitus, Hypertension, Renal Disease Additional Family Medical History / Comment(s): cabg, dialysis General Exam General appearance: alert, in no apparent distress Head exam: Present: atraumatic, normocephalic Eye exam: Present: normal appearance ENT exam: Present: normal exam Neck exam: Present: normal inspection. Absent: tenderness, meningismus Respiratory exam: Present: respiratory distress (mild), wheezes, decreased breath sounds, prolonged expiratory Cardiovascular Exam: Present: regular rate, normal rhythm GI/Abdominal exam: Present: soft. Absent: distended, tenderness, guarding Extremities exam: Present: pedal edema (Chronic venous stasis) Neurological exam: Present: alert, oriented X3 Psychiatric exam: Present: normal affect, normal mood Skin exam: Present: warm, dry, intact Course Vital Signs 07/28/18 07/28/18 07/28/18 12:49 13:39 13:50 Temperature 97.9 F Pulse Rate 100 89 91 Respiratory 22 Rate Blood Pressure 101/56 O2 Sat by Pulse 94 L Oximetry 07/28/18 07/28/18 14:59 16:43 Temperature 98.2 F Pulse Rate 60 59 L Respiratory 16 16 Rate Blood Pressure 135/56 123/70 O2 Sat by Pulse 88 L 98 Oximetry EKG Findings - EKG Comments: EKG Findings:: EKG: Atrial fibrillation, rightward axis, low voltage QRS rate of 98, QRS duration 80, QTC 367 Medical Decision Making - Medical Decision Making 68-year-old female with history of atrial fibrillation, COPD, CHF and likely obesity associated hypoventilation presenting with dyspnea. Chest x-ray obtained, shows congestive heart failure, there may be component of basilar pneumonia. EKG is A. fib or patient is anticoagulated on Eliquis. Patient has mildly elevated white blood cell count 11.7, stable hemoglobin, CO2 is 39 consistent with chronic CO2 retention, BNP is elevated at 2850. Patient is given steroids, albuterol, Atrovent and Lasix in the emergency department she will be admitted for further treatment of both COPD and CHF. Pulmonology placed on consult. - Lab Data Result diagrams: 07/28/18 13:34 07/28/18 15:35 Lab Results 07/28/18 07/28/18 07/28/18 Range/Units 13:34 15:35 15:35 WBC 11.7 H (3.8-10.6) k/uL RBC 5.21 (3.80-5.40) m/uL Hgb 12.3 (11.4-16.0) gm/dL Hct 42.0 (34.0-46.0) % MCV 80.6 (80.0-100.0) fL MCH 23.6 L (25.0-35.0) pg MCHC 29.3 L (31.0-37.0) g/dL RDW 19.9 H (11.5-15.5) % Plt Count 208 (150-450) k/uL Neutrophils % 77 % Lymphocytes % 15 % Monocytes % 4 % Eosinophils % 1 % Basophils % 0 % Neutrophils # 9.1 H (1.3-7.7) k/uL Lymphocytes # 1.7 (1.0-4.8) k/uL Monocytes # 0.4 (0-1.0) k/uL Eosinophils # 0.2 (0-0.7) k/uL Basophils # 0.0 (0-0.2) k/uL Hypochromasia Marked Poikilocytosis Moderate Anisocytosis Slight Microcytosis Slight PT 10.4 (9.0-12.0) sec INR 1.1 (<1.2) APTT 21.1 L (22.0-30.0) sec Sodium (137-145) mmol/L Potassium (3.5-5.1) mmol/L Chloride (98-107) mmol/L Carbon Dioxide (22-30) mmol/L Anion Gap mmol/L BUN (7-17) mg/dL Creatinine (0.52-1.04) mg/dL Est GFR (CKD-EPI)AfAm (>60 ml/min/1.73 sqM) Est GFR (CKD-EPI)NonAf (>60 ml/min/1.73 sqM) Glucose (74-99) mg/dL Calcium (8.4-10.2) mg/dL Magnesium (1.6-2.3) mg/dL Total Bilirubin (0.2-1.3) mg/dL AST (14-36) U/L ALT (9-52) U/L Alkaline Phosphatase (38-126) U/L Total Creatine Kinase <20 L (30-135) U/L CK-MB (CK-2) 0.9 (0.0-2.4) ng/mL CK-MB (CK-2) Rel Index Troponin I 0.015 (0.000-0.034) ng/mL NT-Pro-B Natriuret Pep pg/mL Total Protein (6.3-8.2) g/dL Albumin (3.5-5.0) g/dL 07/28/18 07/28/18 Range/Units 15:35 15:35 WBC (3.8-10.6) k/uL RBC (3.80-5.40) m/uL Hgb (11.4-16.0) gm/dL Hct (34.0-46.0) % MCV (80.0-100.0) fL MCH (25.0-35.0) pg MCHC (31.0-37.0) g/dL RDW (11.5-15.5) % Plt Count (150-450) k/uL Neutrophils % % Lymphocytes % % Monocytes % % Eosinophils % % Basophils % % Neutrophils # (1.3-7.7) k/uL Lymphocytes # (1.0-4.8) k/uL Monocytes # (0-1.0) k/uL Eosinophils # (0-0.7) k/uL Basophils # (0-0.2) k/uL Hypochromasia Poikilocytosis Anisocytosis Microcytosis PT (9.0-12.0) sec INR (<1.2) APTT (22.0-30.0) sec Sodium 138 (137-145) mmol/L Potassium 4.6 (3.5-5.1) mmol/L Chloride 91 L (98-107) mmol/L Carbon Dioxide 39 H (22-30) mmol/L Anion Gap 8 mmol/L BUN 55 H (7-17) mg/dL Creatinine 0.88 (0.52-1.04) mg/dL Est GFR (CKD-EPI)AfAm 79 (>60 ml/min/1.73 sqM) Est GFR (CKD-EPI)NonAf 68 (>60 ml/min/1.73 sqM) Glucose 147 H (74-99) mg/dL Calcium 10.1 (8.4-10.2) mg/dL Magnesium 2.0 (1.6-2.3) mg/dL Total Bilirubin 0.5 (0.2-1.3) mg/dL AST 26 (14-36) U/L ALT 26 (9-52) U/L Alkaline Phosphatase 79 (38-126) U/L Total Creatine Kinase (30-135) U/L CK-MB (CK-2) (0.0-2.4) ng/mL CK-MB (CK-2) Rel Index Troponin I (0.000-0.034) ng/mL NT-Pro-B Natriuret Pep 2850 pg/mL Total Protein 6.6 (6.3-8.2) g/dL Albumin 3.4 L (3.5-5.0) g/dL Disposition Clinical Impression: Congestive heart failure, Acute exacerbation of chronic obstructive airways disease, Dyspnea Disposition: ADMITTED IP TO THIS [facility] Condition: Stable Is patient prescribed a controlled substance at d/c from ED?: No Referrals: Chele Carrasco MD [REFERRING] - 1-2 days Decision to Admit Reason: Admit from EC Decision Date: 07/28/18 Decision Time: 16:47
[2018-07-28 13:45] LABS: Anisocytosis Slight; Basophils % (A) 0 %; Eosinophils # (A) 0.2 k/uL (0-0.7); Eosinophils % (A) 1 %; HGB 12.3 gm/dL (11.4-16.0); Hypochromasia Marked; Lymphocytes # (A) 1.7 k/uL (1.0-4.8); Lymphocytes % (A) 15 %; MCH 23.6 pg (25.0-35.0); MCHC 29.3 g/dL (31.0-37.0); MCV 80.6 fL (80.0-100.0); Mean Platelet Volume 7.9; Microcytosis Slight; Monocytes # (A) 0.4 k/uL (0-1.0); Monocytes % (A) 4 %; Neutrophils # (A) 9.1 k/uL (1.3-7.7); Neutrophils % (A) 77 %; Platelet Count 208 k/uL (150-450); Poikilocytosis Moderate; RBC 5.21 m/uL (3.80-5.40); RDW 19.9 % (11.5-15.5); WBC 11.7 k/uL (3.8-10.6)
--- NOTE | 2018-07-28 14:27 | XR ---
EXAMINATION TYPE: XR chest 2V DATE OF EXAM: 07/28/2018 COMPARISON: Chest x-ray July 01, 2018. HISTORY: Shortness of breath TECHNIQUE: Frontal and lateral views of the chest are obtained. FINDINGS: Exam remaining suboptimal study due to patient's large body habitus particularly lateral v iew. There is redemonstration of cardiomegaly. There is suspected persistent [id number] central vascular congestion. Increased opacity both lung bases lateral view is similar to prior study, can not rule out areas of acute infiltrate. Low lung volumes are redemonstrated. The osseous structures a re intact. IMPRESSION: Suboptimal study, correlate for CHF exacerbation as there is persistent cardiomegaly wit h suspected mild to moderate central vascular congestion. Cannot exclude areas of acute infiltrate in both bases. No significant change from most recent chest x-ray.
[2018-07-28 16:06] LABS: INR 1.1 (<1.2); Partial Thromboplastin Time 21.1 sec (22.0-30.0); Prothrombin Time 10.4 sec (9.0-12.0)
[2018-07-28 16:08] LABS: Albumin 3.4 g/dL (3.5-5.0); Calcium 10.1 mg/dL (8.4-10.2); Potassium 4.6 mmol/L (3.5-5.1); Total Bilirubin 0.5 mg/dL (0.2-1.3); Total Protein 6.6 g/dL (6.3-8.2)
[2018-07-28 16:18] LABS: Creatine Kinase <20 U/L (30-135)
[2018-07-28 16:30] LABS: Creatine Kinase MB 0.9 ng/mL (0.0-2.4); Troponin I 0.015 ng/mL (0.000-0.034)
[2018-07-28] MEDS ORDERED: FUROSEMIDE 10 MG/ML 4 ML VIAL IV STA (16:30)
[2018-07-28] MEDS ORDERED: IPRATROPIUM-ALBUTEROL 3 ML NEB INHALATION PRN (16:40)
[2018-07-28] MEDS: methylPREDNISolone SOD SUCCI 125 MG/2 ML VIAL IV SCH (18:53)
[2018-07-28] MEDS: IPRATROPIUM-ALBUTEROL 3 ML NEB INHALATION SCH (19:17)
[2018-07-28 20:52] LABS: Glucose,Whole Blood 238 mg/dL (75-99)
[2018-07-28] MEDS: METOPROLOL TARTRATE 25 MG TAB PO SCH (21:34)
[2018-07-28] MEDS: DILTIAZEM ORAL 30 MG TAB PO SCH (21:34)
[2018-07-28] MEDS: APIXABAN 5 MG TAB PO SCH (21:35)
[2018-07-28] MEDS: INSULIN ASPART 100 UNIT/ML 1 ML 10 ML VIAL SQ SCH (21:35)
[2018-07-29] MEDS: methylPREDNISolone SOD SUCCI 125 MG/2 ML VIAL IV SCH ×5 (00:11→23:56)
[2018-07-29] MEDS: FUROSEMIDE 10 MG/ML 4 ML VIAL IV SCH ×4 (00:11→23:55)
[2018-07-29] MEDS ORDERED: ACETAMINOPHEN TAB 500 MG TAB PO PRN (01:54)
[2018-07-29 06:25] LABS: Glucose,Whole Blood 165 mg/dL (75-99)
[2018-07-29] MEDS: PANTOPRAZOLE 40 MG TABLET PO SCH (06:50)
[2018-07-29] MEDS: INSULIN ASPART 100 UNIT/ML 1 ML 10 ML VIAL SQ SCH ×4 (06:50→21:59)
[2018-07-29] MEDS ORDERED: SYMBICORT 160-4.5 MCG INHALER INHALATION SCH (08:00)
[2018-07-29] MEDS ORDERED: BUDESONIDE 1 MG/2 ML NEBU INHALATION SCH (08:00)
[2018-07-29] MEDS: FORMOTEROL FUMARATE 20 MCG/2 ML NEBU INHALATION SCH ×2 (08:12→21:07)
[2018-07-29] MEDS: IPRATROPIUM-ALBUTEROL 3 ML NEB INHALATION SCH ×4 (08:13→20:58)
[2018-07-29] MEDS: SYMBICORT 160-4.5 MCG INHALER INHALATION SCH ×2 (08:13→20:58)
--- NOTE | 2018-07-29 08:14 | XR ---
EXAMINATION TYPE: XR chest 1V portable DATE OF EXAM: 07/29/2018 CLINICAL HISTORY: Difficulty breathing progress study. TECHNIQUE: Single AP portable semiupright view of the chest is obtained. COMPARISON: Chest x-ray from one day earlier and older studies. FINDINGS: Exam is noted suboptimal due to portable technique and patient's large body habitus. There is persistent cardiomegaly with suspected central vascular congestion. Degree of congestion may be w orse from prior. There is suboptimal evaluation of left lung base. No large pleural effusion or pneum othorax is present bilaterally. Osseous structures show chronic bilateral AC joint subluxation. IMPRESSION: Suboptimal study with suspected worsening CHF exacerbation as there is cardiomegaly with felt more prominent moderate central vascular congestion. Correlate clinically.
[2018-07-29] MEDS: LORATADINE 10 MG TAB PO SCH (08:34)
[2018-07-29] MEDS: SPIRONOLACTONE 25 MG TAB PO SCH (08:34)
[2018-07-29] MEDS: ASPIRIN 81 MG PO SCH (08:39)
[2018-07-29] MEDS: APIXABAN 5 MG TAB PO SCH ×2 (08:40→21:59)
[2018-07-29] MEDS: DILTIAZEM ORAL 30 MG TAB PO SCH ×2 (08:43→21:59)
[2018-07-29] MEDS: METOPROLOL TARTRATE 25 MG TAB PO SCH ×2 (08:43→21:59)
[2018-07-29] MEDS ORDERED: [UNRECOGNIZED DRUG - OTHER] PO SCH (09:00)
--- NOTE | 2018-07-29 10:30 | HP ---
HISTORY AND PHYSICAL DATE OF SERVICE: 07/28/2018 CHIEF COMPLAINT: Shortness of breath. HISTORY OF PRESENT ILLNESS: This is a 68-year-old woman with a past medical history of multiple medical problems including atrial fibrillation, asthma, CHF, COPD, hypertension, history of pneumonia, morbid obesity, chronic hypoxic respiratory failure being followed by Dr. Carrasco in the outpatient setting, was previously admitted with shortness of breath which is thought to be multifactorial. Patient treated symptomatically. Patient improved significantly. Patient went home and currently the patient is complaining of worsening dyspnea. Dr. Carrasco recommended ER evaluation and further treatment. The patient also has had some increased pulmonary edema in the chest x-ray. There is no history of any fever or rigors. No history of headache, loss of consciousness, seizures. The patient was severely hypoxic at 74. Patient started on BiPAP and subsequently patient has been transferred to [facility] for further evaluation and treatment at this time. Pulmonology has been consulted. PAST MEDICAL HISTORY: History of atrial fibrillation, asthma, COPD, CHF, GI bleed, hypertension, pneumonia, history of morbid obesity. MEDICATIONS PRIOR TO ADMISSION: 1. Aldactone 25 mg p.o. daily. 2. Protonix 40 mg with breakfast. 3. Multivitamins 1 p.o. daily. 4. Lopressor 75 mg p.o. b.i.d. 5. DuoNeb q.i.d. 6. Fexofenadine 180 mg p.o. daily. 7. Diltiazem 90 mg p.o. b.i.d. 8. Symbicort 160/4.5 two puffs b.i.d. 9. Ecotrin 81 mg p.o. daily. 10.Eliquis 5 mg p.o. b.i.d. 11.Tylenol 500 mg q.6 p.r.n. FAMILY HISTORY: History of DJD, eye disorder. SOCIAL HISTORY: Previous history of smoking. No history of current smoking, alcohol intake. REVIEW OF SYSTEMS: The review of systems could not be taken because the patient is on BiPAP at this time. PHYSICAL EXAM: Patient on BiPAP. Pulse is 90, blood pressure 110/50, respiration 16, temperature 97.7, pulse ox 98%. HEENT: Conjunctivae normal. Oral mucosa moist. Neck is obese. No jugular venous distension. No lymph node enlargement. CARDIOVASCULAR SYSTEM: S1, S2. RESPIRATORY: Breath sounds diminished at the bases. Bilateral scattered rhonchi, expiratory wheezing and breathing efforts are markedly increased. ABDOMEN: Soft, obese, nontender. LEGS: Minimal edema bilaterally. NERVOUS SYSTEM: Higher functions as mentioned. Moves all 4 limbs. Full neurologic exam it is not possible because patient is extremely short of breath and on BiPAP at this time. LYMPHATICS: No lymph nodes enlargement in neck or axillae. SKIN: No ulcer, rash, bleeding. JOINTS: No active arthropathy. LABS: At this time shows' 1. WBC is 11.2, hemoglobin is 12.3 and sodium 130, potassium 4.6, glucose 238, albumin is 3.4. ASSESSMENT: 1. Shortness of breath, possibly multifactorial, chronic obstructive pulmonary disease acute exacerbation, also congestive heart failure acute exacerbation with acute hypoxic hypercarbic respiratory failure on BiPAP. 2. History of atrial fibrillation. 3. History of asthma. 4. History of gastrointestinal bleed. 5. Hypertension. 6. History of pneumonia. 7. Super morbid obesity with body mass index of 60.1. 8. Chronic hypoxic respiratory failure with chronic hypoxic hypercarbic respiratory failure. 9. Congestive heart failure with chronic diastolic dysfunction with ejection fraction of 50%-55%. 10.Stage II chronic kidney disease. 11.Chronic lower extremity edema. 12.History of diverticulosis. 13.History coli urinary tract infection. 14.History of methicillin-resistant Staphylococcus aureus. 15.History of claustrophobia. 16.Remote history of nicotine dependence. RECOMMENDATION: In this 68-year-old woman who presented with multiple complex medical issues, will monitor the patient closely, continue with the current management and symptomatic treatment. At this time I recommend continue with IV diuretics, intensive bronchodilators, steroids, empiric antibiotics. Cardiology, Pulmonary consultation as mentioned. Will moves the patient to telemetry. Prognosis guarded. Further recommendations to follow and will monitor the oxygenation closely. In case the oxygenation does not improve, the patient will require further workup including ABG and transfer to ICU but will continue to monitor. Prognosis guarded. A copy of this will be forwarded to Dr. Carrasco, who is the primary physician. MMODL / IJN: [id number] /
[2018-07-29 11:49] LABS: Glucose,Whole Blood 172 mg/dL (75-99)
[2018-07-29] MEDS: LEVOFLOXACIN 500 MG TAB PO SCH (11:57)
--- NOTE | 2018-07-29 13:11 | ECHOF ---
Referral Reason:chf MEASUREMENTS -------- HEIGHT: 162.6 cm WEIGHT: 238.6 kg BP: RVIDd: 4.2 cm (< 3.3) IVSd: 1.3 cm (0.6 - 1.1) LVIDd: 4.6 cm (3.9 - 5.3) LVPWd: 1.1 cm (0.6 - 1.1) IVSs: 1.7 cm LVIDs: 3.3 cm LVPWs: 1.8 cm FINDINGS -------- Sinus rhythm. This was a technically difficult study with suboptimal views. Morbid Obesity Limited Study The left ventricular size is normal. There is mild concentric left ventricular hypertrophy. Overa ll left ventricular systolic function is low-normal with, an EF between 50 - 55 %. The right ventricle is severely enlarged. The left atrium was not well visualized. The right atrium was not well visualized. Lumason used The aortic valve was not well visualized. The mitral valve was not well visualized. The tricuspid valve was not well visualized. The pulmonic valve was not well visualized. CONCLUSIONS -------- 1. Sinus rhythm. 2. This was a technically difficult study with suboptimal views. 3. Morbid Obesity 4. Limited Study 5. The left ventricular size is normal. 6. There is mild concentric left ventricular hypertrophy. 7. Overall left ventricular systolic function is low-normal with, an EF between 50 - 55 %. 8. The right ventricle is severely enlarged. 9. The left atrium was not well visualized. 10. The right atrium was not well visualized. 11. Lumason used 12. The aortic valve was not well visualized. 13. The mitral valve was not well visualized. 14. The tricuspid valve was not well visualized. 15. The pulmonic valve was not well visualized. TAMALE MACHINE FEEDER: Charito Logan [facility]
--- NOTE | 2018-07-29 14:43 | P.CNPUL ---
History of Present Illness Consult date: 07/29/18 Requesting physician: Harmeet Connors Reason for consult: dyspnea, abnormal CXR/CT (Congestive heart failure) Chief complaint: Shortness of breath History of present illness: This is a pleasant 68-year-old female patient who follows with home visiting physicians. She has a history of morbid obesity with a BMI of 90, chronic hypoxic respiratory failure, chronic hypercapnic respiratory failure, diastolic congestive heart failure, borderline pulmonary hypertension, obstructive sleep apnea, obesity hypoventilation syndrome, chronic atrial fibrillation, hypertension, chronic kidney disease stage II, chronic lower extremity edema and venous stasis, chronic microcytic anemia, acid reflux, peptic ulcer disease , remote smoking, diverticulitis, previous history of ventilatory dependent respiratory failure, urinary tract infections, C. difficile colitis, MRSA in the sputum. She presented here to the emergency room yesterday as recommended by her visiting physician for concerns regarding fluid volume overload. Chest x -ray did reveal evidence of pulmonary vascular congestion and cardiomegaly. Limited echocardiogram revealed preserved left ventricular systolic function with ejection fraction 50-55%. She is seen today in consultation on the selective care unit. She is currently awake and alert in no acute distress. She is currently maintaining O2 saturations in the 90s on 5 L/m per nasal cannula. Utilizing the BiPAP during the evenings and throughout the day while napping. Afebrile. White count 11.7. Hemoglobin 12.3. Bicarb 39. Creatinine 0.88. Troponin negative. ProBNP 2850. Review of Systems Constitutional: Reports chronic pain, Reports fatigue, Reports weakness, Reports weight gain Eyes: denies blurred vision, denies decreased vision Ears: deny: decreased hearing Ears, nose, mouth and throat: Denies headache, Denies sore throat Cardiovascular: Reports dyspnea on exertion, Reports irregular heart beat, Reports leg edema, Reports palpitations, Reports shortness of breath Respiratory: Reports dyspnea, Reports home oxygen, Reports sleep apnea Gastrointestinal: Reports bloating Genitourinary: Denies dysuria, Denies hematuria Musculoskeletal: Reports gait dysfunction, Reports limitation of motion Musculoskeletal: bilateral: ankle swelling, foot swelling Integumentary: Reports color changes Neurological: Reports balance difficulties, Reports gait dysfunction, Reports weakness Psychiatric: Reports anxiety, Reports hypersomnia, Reports sleep disturbances Endocrine: Reports high blood sugars Hematologic/Lymphatic: Reports as per HPI Allergic/Immunologic: Reports as per HPI Past Medical History Past Medical History: Atrial Fibrillation, Asthma, Heart Failure, COPD, GI Bleed , Hypertension, Pneumonia Additional Past Medical History / Comment(s): Morbid obesity, chronic hypoxic respiratory failure, chronic hypercapnic respiratory failure, CHF with diastolic dysfunction, borderline pulmonary hypertension, obstructive sleep apnea, breast hypoventilation syndrome, chronic atrial fibrillation, hypertension, chronic stage II kidney disease, chronic lower extremity edema and venous stasis, chronic microcytic anemia, acid reflux, history of peptic ulcer disease, history of smoking, history of diverticulosis and previous history of diverticulitis, history of chronic lower extremity venous stasis and ulceration, previous history of ventilator dependent respiratory failure requiring intubation back in general 2018, previous history of E. coli urinary tract infection, previous history of C. 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 has hospital bed, shower chair, manpreet lift ,w/c, walker, .Stopped quit smoking in 2013. No alcohol use. Disabled. No experience. No international travel. No animal exposures Smoking Status: Former smoker Past Alcohol Use History: None Reported Additional Past Alcohol Use History / Comment(s): started smoking in 1967 used to smoke 1 ppd, quit Past Drug Use History: None Reported - Past Family History Father Family Medical History: Eye Disorder, Osteoarthritis (OA) Additional Family Medical History / Comment(s): at age 92 from old age, had macular degeneration Mother Family Medical History: Coronary Artery Disease (CAD), Diabetes Mellitus, Hypertension, Renal Disease Additional Family Medical History / Comment(s): cabg, dialysis Medications and Allergies Home Medications Medication Instructions Recorded Confirmed Type Multivits,Th W-Ca,Fe,Oth Min 1 tab PO DAILY 03/25/18 07/28/18 History [Therapeutic M] Apixaban [Eliquis] 5 mg PO BID #60 tab 03/31/18 07/28/18 Rx Aspirin EC [Ecotrin Low Dose] 81 mg PO DAILY #30 tablet. 03/31/18 07/28/18 Rx Budesonide-Formot 160-4.5 Mcg 2 puff INHALATION RT-BID 05/31/18 07/28/18 History [Symbicort 160-4.5 Mcg Inhaler] Diltiazem HCl 90 mg PO BID 05/31/18 07/28/18 History Fexofenadine HCl [Sarita Allergy] 180 mg PO DAILY 05/31/18 07/28/18 History Metoprolol Tartrate [Lopressor] 75 mg PO BID 05/31/18 07/28/18 History Spironolactone [Aldactone] 25 mg PO DAILY 05/31/18 07/28/18 History Ipratropium-Albuterol Nebulize 3 ml INHALATION RT-QID #120 06/03/18 07/28/18 Rx [Duoneb 0.5 mg-3 mg/3 ml Soln] ampul.neb Pantoprazole [Protonix] 40 mg PO AC-BRKFST #30 tablet. 06/03/18 07/28/18 Rx Acetaminophen Tab [Tylenol] 500 mg PO Q6HR PRN tab 07/04/18 07/28/18 Rx Allergies Allergy/AdvReac Type Severity Reaction Status Date / Time No Known Allergies Allergy Verified 07/28/18 13:27 Physical Exam Vitals: Vital Signs Temp Pulse Pulse Resp BP BP Pulse Ox 07/29/18 13:41 92 07/29/18 13:24 92 07/29/18 12:00 126 H 16 109/68 07/29/18 11:02 16 07/29/18 08:37 96 07/29/18 08:29 92 07/29/18 08:14 92 07/29/18 08:00 110 H 16 121/69 97 07/29/18 04:00 97.3 F L 99 20 116/67 91 L 07/29/18 00:30 97.5 F L 100 20 108/84 95 07/28/18 19:30 90 07/28/18 19:21 90 07/28/18 19:02 97.7 F 110 H 16 110/55 90 L 07/28/18 18:00 100 20 109/56 89 L 07/28/18 16:43 98.2 F 59 L 16 123/70 98 07/28/18 14:59 60 16 135/56 88 L Intake and Output 07/28/18 07/29/18 07/29/18 22:59 06:59 14:59 Intake Total 10 538 Balance 10 538 Intake: IV 10 .9 10 Oral 538 Other: Voiding Method Incontinent Incontinent Incontinent # Voids 1 Weight 158.757 kg 239 kg 240 kg GENERAL EXAM: Morbid obesity. Alert, comfortable in no apparent distress. HEAD: Normocephalic. EYES: Normal reaction of pupils, equal size. NOSE: Clear with pink turbinates. THROAT: Crowding of the posterior pharynx No erythema or exudates. NECK: Short. No masses, no JVD. CHEST: No chest wall deformity. LUNGS: Equal air entry with few scattered rhonchi, crackles in the posterior bases. Diminished. CVS: S1 and S2 normal with no audible murmur, irregular rhythm. ABDOMEN: Obesity, normal bowel sounds, no guarding or rigidity. SPINE: No scoliosis or deformity SKIN: She does of chronic venous stasis. CENTRAL NERVOUS SYSTEM: No focal deficits, tone is normal in all 4 extremities. EXTREMITIES: There is 2-3+ peripheral edema. No clubbing, no cyanosis. Peripheral pulses are intact. Results - Laboratory Findings CBC and BMP: 07/28/18 13:34 07/28/18 15:35 PT/INR, D-dimer PT 10.4 sec (9.0-12.0) 07/28/18 15:35 INR 1.1 (<1.2) 07/28/18 15:35 Abnormal lab findings: Abnormal Labs 07/28/18 07/28/18 07/28/18 13:34 15:35 15:35 WBC 11.7 H MCH 23.6 L MCHC 29.3 L RDW 19.9 H Neutrophils # 9.1 H APTT 21.1 L Chloride Carbon Dioxide BUN Glucose POC Glucose (mg/dL) Total Creatine Kinase <20 L Albumin 07/28/18 07/28/18 07/29/18 15:35 20:48 06:23 WBC MCH MCHC RDW Neutrophils # APTT Chloride 91 L Carbon Dioxide 39 H BUN 55 H Glucose 147 H POC Glucose (mg/dL) 238 H 165 H Total Creatine Kinase Albumin 3.4 L 07/29/18 11:47 WBC MCH MCHC RDW Neutrophils # APTT Chloride Carbon Dioxide BUN Glucose POC Glucose (mg/dL) 172 H Total Creatine Kinase Albumin - Diagnostic Findings Chest x-ray: image reviewed Assessment and Plan Assessment: Impression: #1 Acute on chronic hypoxic respiratory failure, multifactorial, due to a component of diastolic congestive heart failure in a obesity/hypoventilation syndrome, morbid obesity, chronic obstructive lung disease. She is on oxygen at 4 L at baseline at home. #2 Chronic CHF with diastolic dysfunction ejection fraction 50-55% on 2017 patient is on IV Lasix #3 Obstructive sleep apnea and obesity hypoventilation syndrome #4 Severe restrictive lung disease secondary to morbid obesity #5 BMI of 90.8 consistent with morbid obesity, increased since last admission #6 Chronic atrial fibrillation with a controlled ventricular rate. Rate controlled. On Cardizem and metoprolol. On anticoagulation at home in the form of Eliquis #7 Hypertension #8 Chronic kidney disease stage II #9 Chronic bilateral lower activity edema and chronic venous stasis #10 GERD and history of peptic ulcer disease #11 Microcytic anemia #12 Previous history of smoking #13 Poor overall functional performance based on the above-mentioned multiple comorbidities. Plan The patient was seen and evaluated by Dr. Joshi. We'll continue with the current treatment plan including bronchodilators, Symbicort inhalations, IV Solu -Medrol. She is on empiric diuretics in the form of Levaquin. IV Lasix 40 mg every 8 hours. Continue and to coagulation with Eliquis. We will continue to follow and make further recommendations based on her clinical status. I, the cosigning physician, performed a history & physical examination of the patient. Lungs sounds with crackles in the bilateral posterior bases. Diminished.. Maintaining good O2 saturations in the 90s on 5 L/m per nasal cannula alternating with BiPAP. I discussed the assessment and plan of care with my nurse practitioner, Iveth Da Silva. I attest to the above consultation as dictated by her. Time with Patient: Greater than 30
[2018-07-29 15:19] VITALS: BMI 90.8
[2018-07-29 15:24] LABS: Hemoglobin A1C 6.1 % (4.0-6.0)
[2018-07-29 16:57] LABS: Glucose,Whole Blood 163 mg/dL (75-99)
--- NOTE | 2018-07-29 16:57 | PN ---
PROGRESS NOTE DATE OF SERVICE: 07/29/2018 This 68-year-old woman was admitted with shortness of breath involving CHF and COPD, acute exacerbation. Closely monitor. Patient was using BiPAP last night. Multiple consultants, including Cardiology and Pulmonology, are following the patient closely. The chest x-ray was reviewed. A 2D echo with Doppler was also done by Cardiology. Two- D echo showed ejection fraction about 50% to 55%. Valves are not well visualized. Past medical history reviewed. REVIEW OF SYSTEMS: CARDIOVASCULAR SYSTEM: No angina, palpitations. RESPIRATORY SYSTEM: As mentioned earlier. GI: As mentioned earlier. : No dysuria or retention. NERVOUS SYSTEM: No numbness, weakness.. CURRENT MEDICATIONS: Reviewed. They include: 1. Tylenol 500 mg q.6 p.r.n. 2. DuoNeb q.i.d. and p.r.n. 3. Eliquis 5 mg p.o. b.i.d. 4. Aspirin 81 mg daily. 5. Symbicort 160/4.5 two puffs b.i.d. 6. Cardizem. 7. Perforomist. 8. Lasix. 9. Levaquin. 10.Claritin. 11.Solu-Medrol. 12.Lopressor. 13.Protonix. 14.Aldactone. PHYSICAL EXAMINATION: Patient is alert and oriented x3. Pulse is 126, blood pressure 109/60, respiration 16, temperature normal. HEENT: Conjunctivae normal. NECK: No jugular venous distention. CARDIOVASCULAR SYSTEM: S1, S2 muffled. RESPIRATORY SYSTEM: Breath sounds diminished at the bases. A few scattered rhonchi and crackles. ABDOMEN: Soft, non-tender. LEGS: No edema. No swelling. NERVOUS SYSTEM: No focal deficit. LABS: WBC 11.7, hemoglobin 12.3. ASSESSMENT: 1. Shortness of breath, mostly multifactorial chronic obstructive pulmonary disease, acute exacerbation, as well as congestive heart failure, acute exacerbation, with acute hypoxic hypercarbic respiratory failure, on BiPAP. 2. History of atrial fibrillation. 3. History of asthma. 4. History of gastrointestinal bleed. 5. Hypertension. 6. History of pneumonia. 7. Super morbid obesity with a body mass index of 60.1. 8. Chronic hypoxic respiratory failure. 9. Congestive heart failure with chronic diastolic dysfunction, ejection fraction 50% to 55%. 10.Stage II chronic kidney disease. 11.Chronic lower extremity edema. 12.History of diverticulosis. 13.History of urinary tract infection. 14.History of methicillin-resistant Staphylococcus aureus. 15.History of claustrophobia. 16.Remote history of nicotine dependence. RECOMMENDATION AND DISCUSSION: In this 68-year-old woman who presented with multiple complex medical issues, we will monitor the patient closely, continue the diuretic, continue with the bronchodilators, continue the rest of the medication. Follow closely with Cardiology and Pulmonary. Guarded prognosis because of multiple complex medical issues. Further recommendations to follow. MMODL / IJN: [id number] /
--- NOTE | 2018-07-29 16:59 | P.CRDCN ---
History of Present Illness Consult date: 07/29/18 Requesting physician: Harmeet Connors Reason for Consult (text): CHF Chief complaint: worsening shortness of breath History of present illness: This is a pleasant 68-year-old female patient who follows with Dr. Child in the office. Has history of morbid obesity, chronic diastolic congestive heart failure, chronic atrial fibrillation, COPD, hypertension. Presents to the hospital with complaints of progressively worsening shortness of breath. Admitted with diagnosis of CHF and COPD exacerbation. Chest x-ray on admission showed mild to moderate central venous congestion with subsequent chest x-ray showing worsening CHF. NT proBNP came back elevated at 2850. Troponin was negative 1. BUN is 55 and creatinine 0.88. She's been started on Lasix 40 mg IV push every 8 hours as well as IV Solu-Medrol. EKG showed atrial fibrillation. Blood pressure has been stable. Heart rates have been ranging from 90s to 110. Upon examination, patient is resting comfortably in bed. She feels her breathing is quite a bit better compared to admission. She is putting out decent amount of urine. Continues to have complaints of orthopnea and some dyspnea on exertion. At rest she appears comfortable. Past Medical History Past Medical History: Atrial Fibrillation, Asthma, Heart Failure, COPD, GI Bleed , Hypertension, Pneumonia Additional Past Medical History / Comment(s): Morbid obesity, chronic hypoxic respiratory failure, chronic hypercapnic respiratory failure, CHF with diastolic dysfunction, borderline pulmonary hypertension, obstructive sleep apnea, breast hypoventilation syndrome, chronic atrial fibrillation, hypertension, chronic stage II kidney disease, chronic lower extremity edema and venous stasis, chronic microcytic anemia, acid reflux, history of peptic ulcer disease, history of smoking, history of diverticulosis and previous history of diverticulitis, history of chronic lower extremity venous stasis and ulceration, previous history of ventilator dependent respiratory failure requiring intubation back in general 2018, previous history of E. coli urinary tract infection, previous history of C. 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 has hospital bed, shower chair, manpreet lift ,w/c, walker, .Stopped quit smoking in 2013. No alcohol use. Disabled. No experience. No international travel. No animal exposures Smoking Status: Former smoker Past Alcohol Use History: None Reported Additional Past Alcohol Use History / Comment(s): started smoking in 1967 used to smoke 1 ppd, quit Past Drug Use History: None Reported - Past Family History Father Family Medical History: Eye Disorder, Osteoarthritis (OA) Additional Family Medical History / Comment(s): at age 92 from old age, had macular degeneration Mother Family Medical History: Coronary Artery Disease (CAD), Diabetes Mellitus, Hypertension, Renal Disease Additional Family Medical History / Comment(s): cabg, dialysis Medications and Allergies Home Medications Medication Instructions Recorded Confirmed Type Multivits, W-Ca,Fe,Oth Min 1 tab PO DAILY 03/25/18 07/28/18 History [Therapeutic M] Apixaban [Eliquis] 5 mg PO BID #60 tab 03/31/18 07/28/18 Rx Aspirin EC [Ecotrin Low Dose] 81 mg PO DAILY #30 tablet.dr 03/31/18 07/28/18 Rx Budesonide-Formot 160-4.5 Mcg 2 puff INHALATION RT-BID 05/31/18 07/28/18 History [Symbicort 160-4.5 Mcg Inhaler] Diltiazem HCl 90 mg PO BID 05/31/18 07/28/18 History Fexofenadine HCl [Sarita Allergy] 180 mg PO DAILY 05/31/18 07/28/18 History Metoprolol Tartrate [Lopressor] 75 mg PO BID 05/31/18 07/28/18 History Spironolactone [Aldactone] 25 mg PO DAILY 05/31/18 07/28/18 History Ipratropium-Albuterol Nebulize 3 ml INHALATION RT-QID #120 06/03/18 07/28/18 Rx [Duoneb 0.5 mg-3 mg/3 ml Soln] ampul.neb Pantoprazole [Protonix] 40 mg PO AC-BRKFST #30 tablet. 06/03/18 07/28/18 Rx Acetaminophen Tab [Tylenol] 500 mg PO Q6HR PRN tab 07/04/18 07/28/18 Rx Allergies Allergy/AdvReac Type Severity Reaction Status Date / Time No Known Allergies Allergy Verified 07/28/18 13:27 Physical Exam Vitals: Vital Signs Temp Pulse Pulse Resp BP BP Pulse Ox 07/29/18 08:37 96 07/29/18 08:29 92 07/29/18 08:14 92 07/29/18 08:00 110 H 16 121/69 97 07/29/18 04:00 97.3 F L 99 20 116/67 91 L 07/29/18 00:30 97.5 F L 100 20 108/84 95 07/28/18 19:30 90 07/28/18 19:21 90 07/28/18 19:02 97.7 F 110 H 16 110/55 90 L 07/28/18 18:00 100 20 109/56 89 L 07/28/18 16:43 98.2 F 59 L 16 123/70 98 07/28/18 14:59 60 16 135/56 88 L 07/28/18 13:50 91 07/28/18 13:39 89 07/28/18 12:49 97.9 F 100 22 101/56 94 L Intake and Output 07/28/18 07/29/18 07/29/18 22:59 06:59 14:59 Intake Total 10 298 Balance 10 298 Intake: IV 10 .9 10 Oral 298 Other: Voiding Method Incontinent Incontinent # Voids 1 Weight 158.757 kg 239 kg PHYSICAL EXAMINATION: HEENT: Head is atraumatic, normocephalic. Pupils equal, round. Neck is supple. Jugular venous pressure difficult to assess. HEART EXAMINATION: Heart sounds irregularly irregular, S1 and S2 distant. No murmur or gallop heard. CHEST EXAMINATION: Lungs reveal diminished air entry bilaterally. No chest wall tenderness is noted on palpation or with deep breathing. ABDOMEN: Soft, obese, nontender. Bowel sounds are heard. No organomegaly noted. EXTREMITIES: 2+ peripheral pulses with evidence of peripheral edema and chronic skin changes noted. NEUROLOGIC patient is awake, alert and oriented x3. . Results 07/28/18 13:34 07/28/18 15:35 Cardiac Enzymes 07/28/18 07/28/18 Range/Units 15:35 15:35 AST 26 (14-36) U/L CK-MB (CK-2) 0.9 (0.0-2.4) ng/mL Troponin I 0.015 (0.000-0.034) ng/mL Coagulation 07/28/18 Range/Units 15:35 PT 10.4 (9.0-12.0) sec APTT 21.1 L (22.0-30.0) sec CBC 07/28/18 Range/Units 13:34 WBC 11.7 H (3.8-10.6) k/uL RBC 5.21 (3.80-5.40) m/uL Hgb 12.3 (11.4-16.0) gm/dL Hct 42.0 (34.0-46.0) % Plt Count 208 (150-450) k/uL Comprehensive Metabolic Panel 07/28/18 Range/Units 15:35 Sodium 138 (137-145) mmol/L Potassium 4.6 (3.5-5.1) mmol/L Chloride 91 L (98-107) mmol/L Carbon Dioxide 39 H (22-30) mmol/L BUN 55 H (7-17) mg/dL Creatinine 0.88 (0.52-1.04) mg/dL Glucose 147 H (74-99) mg/dL Calcium 10.1 (8.4-10.2) mg/dL AST 26 (14-36) U/L ALT 26 (9-52) U/L Alkaline Phosphatase 79 (38-126) U/L Total Protein 6.6 (6.3-8.2) g/dL Albumin 3.4 L (3.5-5.0) g/dL Current Medications Generic Name Dose Route Start Last Admin Trade Name Freq PRN Reason Stop Dose Admin Acetaminophen 500 mg 07/29/18 01:54 Tylenol Tab PO Q6HR PRN Fever and/ or Pain Albuterol/Ipratropium 3 ml 07/28/18 20:00 07/29/18 08:13 Duoneb 0.5 Mg-3 Mg/3 Ml Soln INHALATION 3 ml RT-QID BARBER Administration Albuterol/Ipratropium 3 ml 07/28/18 22:59 Duoneb 0.5 Mg-3 Mg/3 Ml Soln INHALATION RT-Q2H PRN Shortness Of Breath Or Wheezing Apixaban 5 mg 07/28/18 21:00 07/29/18 08:40 Eliquis PO 5 mg BID BARBER Administration Aspirin 81 mg 07/29/18 09:00 07/29/18 08:39 Aspirin PO 81 mg DAILY BARBER Administration Budesonide/Formoterol Fumarate 2 puff 07/29/18 08:00 07/29/18 08:13 Symbicort 160-4.5 Mcg Inhaler INHALATION 2 puff RT-BID BARBER Administration Diltiazem HCl 90 mg 07/28/18 21:00 07/29/18 08:43 Cardizem Oral PO 90 mg BID BARBER Administration Formoterol Fumarate 20 mcg 07/29/18 08:00 07/29/18 08:12 Perforomist INHALATION 20 mcg RT-BID BARBER Administration Furosemide 40 mg 07/29/18 00:00 07/29/18 08:39 Lasix IV 40 mg Q8HR BARBER Administration Insulin Aspart 0 unit 07/28/18 21:00 07/29/18 06:50 Novolog SQ 3 unit ACHS BARBER Administration Protocol Levofloxacin 500 mg 07/29/18 09:00 Levaquin PO 08/05/18 09:01 DAILY BARBER Loratadine 10 mg 07/29/18 09:00 07/29/18 08:34 Claritin PO 10 mg DAILY BARBER Administration Methylprednisolone Sodium Succinate 60 mg 07/28/18 18:00 07/29/18 06:50 Solu-Medrol IV 60 mg Q6HR BARBER Administration Metoprolol Tartrate 75 mg 07/28/18 21:00 07/29/18 08:43 Lopressor PO 75 mg BID BARBER Administration Pantoprazole Sodium 40 mg 07/29/18 07:30 07/29/18 06:50 Protonix PO 40 mg AC-BRKFST BARBER Administration Spironolactone 25 mg 07/29/18 09:00 07/29/18 08:34 Aldactone PO 25 mg DAILY BARBER Administration Intake and Output 07/28/18 07/29/18 07/29/18 22:59 06:59 14:59 Intake Total 10 298 Balance 10 298 Intake: IV 10 .9 10 Oral 298 Other: Voiding Method Incontinent Incontinent # Voids 1 Weight 158.757 kg 239 kg 07/28/18 13:34 07/28/18 15:35 EKG Interpretations (text) Atrial fibrillation with heart rate of 98 bpm Assessment and Plan Assessment: #1 acute on chronic diastolic congestive heart failure most recent available echocardiogram showed an preserved LV systolic function #2 chronic atrial fibrillation #3 COPD exacerbation #4 morbid obesity Plan: From cardiology perspective, continue current dose of IV Lasix. Continue to monitor daily weights, intake and output as well as renal function and electrolytes. Continue anticoagulation. We'll continue to follow the patient and provide further recommendations accordingly. [employer]Y TE[employer]ER note has been reviewed, I agree with a documented findings and plan of care. Patient was seen and examined.
[2018-07-29 21:11] LABS: Glucose,Whole Blood 182 mg/dL (75-99)
[2018-07-30 06:24] LABS: Glucose,Whole Blood 152 mg/dL (75-99)
[2018-07-30] MEDS: INSULIN ASPART 100 UNIT/ML 1 ML 10 ML VIAL SQ SCH ×4 (06:26→21:12)
[2018-07-30] MEDS: PANTOPRAZOLE 40 MG TABLET PO SCH ×2 (06:26→06:31)
[2018-07-30] MEDS: methylPREDNISolone SOD SUCCI 125 MG/2 ML VIAL IV SCH ×4 (06:26→23:05)
[2018-07-30] MEDS: IPRATROPIUM-ALBUTEROL 3 ML NEB INHALATION SCH ×4 (08:05→19:38)
[2018-07-30] MEDS: SYMBICORT 160-4.5 MCG INHALER INHALATION SCH ×2 (08:05→19:38)
[2018-07-30] MEDS: FORMOTEROL FUMARATE 20 MCG/2 ML NEBU INHALATION SCH ×2 (08:05→19:38)
[2018-07-30 08:47] LABS: Anisocytosis Slight; Basophils % (A) 0 %; Eosinophils % (A) 0 %; HCT 42.4 % (34.0-46.0); HGB 12.5 gm/dL (11.4-16.0); Hypochromasia Marked; Lymphocytes # (A) 1.1 k/uL (1.0-4.8); Lymphocytes % (A) 9 %; MCH 24.4 pg (25.0-35.0); MCHC 29.5 g/dL (31.0-37.0); MCV 82.7 fL (80.0-100.0); Mean Platelet Volume 8.1; Microcytosis Slight; Monocytes # (A) 0.4 k/uL (0-1.0); Monocytes % (A) 3 %; Neutrophils # (A) 11.5 k/uL (1.3-7.7); Neutrophils % (A) 87 %; Platelet Count 212 k/uL (150-450); Poikilocytosis Moderate; RBC 5.13 m/uL (3.80-5.40); RDW 19.5 % (11.5-15.5); WBC 13.2 k/uL (3.8-10.6)
[2018-07-30 08:50] LABS: ABG Base Excess 20.5 mmol/L; ABG Oxygen Saturation 93.2 % (94-97); ABG PO2 69 mmHg (83-108); ABG TCO2 50 mmol/L (19-24)
[2018-07-30 08:53] LABS: ABG HCO3 47 mmol/L (21-25); ABG PCO2 96 mmHg (35-45)
[2018-07-30 08:57] LABS: Potassium 4.4 mmol/L (3.5-5.1)
[2018-07-30] MEDS: FUROSEMIDE 10 MG/ML 4 ML VIAL IV SCH ×2 (09:04→21:12)
[2018-07-30] MEDS: LORATADINE 10 MG TAB PO SCH (09:05)
[2018-07-30] MEDS: LEVOFLOXACIN 500 MG TAB PO SCH (09:05)
[2018-07-30] MEDS: APIXABAN 5 MG TAB PO SCH ×2 (09:05→21:11)
[2018-07-30] MEDS: ASPIRIN 81 MG PO SCH (09:05)
[2018-07-30] MEDS: SPIRONOLACTONE 25 MG TAB PO SCH (09:06)
[2018-07-30] MEDS: METOPROLOL TARTRATE 25 MG TAB PO SCH ×2 (09:06→21:11)
[2018-07-30] MEDS: DILTIAZEM ORAL 30 MG TAB PO SCH ×2 (09:09→21:11)
--- NOTE | 2018-07-30 10:20 | P.PN ---
Subjective Progress Note Date: 07/30/18 Principal diagnosis: Diastolic heart failure This is a pleasant 68-year-old female patient who follows with Dr. Child in the office. Has history of morbid obesity, chronic diastolic congestive heart failure, chronic atrial fibrillation, COPD, hypertension. Presents to the hospital with complaints of progressively worsening shortness of breath. Admitted with diagnosis of CHF and COPD exacerbation. Chest x-ray on admission showed mild to moderate central venous congestion with subsequent chest x-ray showing worsening CHF. NT proBNP came back elevated at 2850. Troponin was negative 1. BUN is 55 and creatinine 0.88. She's been started on Lasix 40 mg IV push every 8 hours as well as IV Solu-Medrol. EKG showed atrial fibrillation. Blood pressure has been stable. Heart rates have been ranging from 90s to 110. I'll follow-up with her today, she is feeling slightly better in femoral shortness of breath. The creatinine is slightly worse and because of.I am going to decrease the dose of Lasix to 40 mg IV twice a day and continue monitor the kidney function and electrolytes. Objective - Vital Signs Vital signs: Vital Signs Temp 97.4 F L 07/30/18 03:43 Pulse 84 07/30/18 08:19 Resp 16 07/30/18 08:00 BP 107/72 07/30/18 08:00 Pulse Ox 93 L 07/30/18 08:00 Intake & Output 07/29/18 07/30/18 07/30/18 18:59 06:59 18:59 Intake Total 1138 240 Output Total 1000 1500 Balance 138 -1500 240 Weight 240 kg 242.3 kg Intake: Oral 1138 240 Output: Urine 1000 1500 Other: Voiding Method Incontinent # Voids 1 # Bowel Movements 1 - Constitutional General appearance: Present: no acute distress - Respiratory Respiratory: bilateral: diminished - Cardiovascular Rhythm: irregularly irregular - Labs CBC & Chem 7: 07/30/18 08:25 07/30/18 08:25 Labs: Abnormal Lab Results - Last 24 Hours (Table) 07/28/18 07/29/18 07/29/18 Range/Units 13:34 11:47 16:42 WBC (3.8-10.6) k/uL MCH (25.0-35.0) pg MCHC (31.0-37.0) g/dL RDW (11.5-15.5) % Neutrophils # (1.3-7.7) k/uL ABG pH (7.35-7.45) ABG pCO2 (35-45) mmHg ABG pO2 (83-108) mmHg ABG HCO3 (21-25) mmol/L ABG Total CO2 (19-24) mmol/L ABG O2 Saturation (94-97) % Chloride (98-107) mmol/L Carbon Dioxide (22-30) mmol/L BUN (7-17) mg/dL Creatinine (0.52-1.04) mg/dL Glucose (74-99) mg/dL POC Glucose (mg/dL) 172 H 163 H (75-99) mg/dL Hemoglobin A1c 6.1 H (4.0-6.0) % 07/29/18 07/30/18 07/30/18 Range/Units 21:09 06:23 08:25 WBC 13.2 H (3.8-10.6) k/uL MCH 24.4 L (25.0-35.0) pg MCHC 29.5 L (31.0-37.0) g/dL RDW 19.5 H (11.5-15.5) % Neutrophils # 11.5 H (1.3-7.7) k/uL ABG pH (7.35-7.45) ABG pCO2 (35-45) mmHg ABG pO2 (83-108) mmHg ABG HCO3 (21-25) mmol/L ABG Total CO2 (19-24) mmol/L ABG O2 Saturation (94-97) % Chloride (98-107) mmol/L Carbon Dioxide (22-30) mmol/L BUN (7-17) mg/dL Creatinine (0.52-1.04) mg/dL Glucose (74-99) mg/dL POC Glucose (mg/dL) 182 H 152 H (75-99) mg/dL Hemoglobin A1c (4.0-6.0) % 07/30/18 07/30/18 Range/Units 08:25 08:47 WBC (3.8-10.6) k/uL MCH (25.0-35.0) pg MCHC (31.0-37.0) g/dL RDW (11.5-15.5) % Neutrophils # (1.3-7.7) k/uL ABG pH 7.30 L (7.35-7.45) ABG pCO2 96 H* (35-45) mmHg ABG pO2 69 L (83-108) mmHg ABG HCO3 47 H* (21-25) mmol/L ABG Total CO2 50 H (19-24) mmol/L ABG O2 Saturation 93.2 L (94-97) % Chloride 92 L (98-107) mmol/L Carbon Dioxide 39 H (22-30) mmol/L BUN 65 H (7-17) mg/dL Creatinine 1.07 H (0.52-1.04) mg/dL Glucose 151 H (74-99) mg/dL POC Glucose (mg/dL) (75-99) mg/dL Hemoglobin A1c (4.0-6.0) % Assessment and Plan Assessment: Assessment #1 chronic atrial fibrillation was controlled heart rate #2 chronic diastolic heart failure #3 acute on chronic renal failure #4 chronic hypoxic respiratory failure #5 multiple comorbid conditions including obesity Plan #1 decrease the dose of Lasix in view of the worsening kidney function #2 continue the current medical regimen #3 continue monitor the kidney function and electrolytes #4 follow-up with the patient
--- NOTE | 2018-07-30 10:51 | P.PN ---
Subjective Progress Note Date: 07/30/18 Principal diagnosis: Acute on chronic hypoxic and hypercapnic respiratory failure, multifactorial. This is a pleasant 68-year-old female patient who follows with home visiting physicians. She has a history of morbid obesity with a BMI of 90, chronic hypoxic respiratory failure, chronic hypercapnic respiratory failure, diastolic congestive heart failure, borderline pulmonary hypertension, obstructive sleep apnea, obesity hypoventilation syndrome, chronic atrial fibrillation, hypertension, chronic kidney disease stage II, chronic lower extremity edema and venous stasis, chronic microcytic anemia, acid reflux, peptic ulcer disease , remote smoking, diverticulitis, previous history of ventilatory dependent respiratory failure, urinary tract infections, C. difficile colitis, MRSA in the sputum. She presented here to the emergency room yesterday as recommended by her visiting physician for concerns regarding fluid volume overload. Chest x -ray did reveal evidence of pulmonary vascular congestion and cardiomegaly. Limited echocardiogram revealed preserved left ventricular systolic function with ejection fraction 50-55%. She is seen today in consultation on the selective care unit. She is currently awake and alert in no acute distress. She is currently maintaining O2 saturations in the 90s on 5 L/m per nasal cannula. Utilizing the BiPAP during the evenings and throughout the day while napping. Afebrile. White count 11.7. Hemoglobin 12.3. Bicarb 39. Creatinine 0.88. Troponin negative. ProBNP 2850. Reevaluated today on 07/30/2018, patient remains on the selective care unit, presently on BiPAP, remains on diuretics, patient is a bit lethargic, ABG reflected hypercapnia and respiratory acidosis with significant metabolic compensation. ABG showed a CO2 of 96 pO2 of 69 pH of 7.30. Hence On BiPAP with IPAP of 14 and EPAP of 5. Basic metabolic profile showed bicarb level of 40 BUN is 65 creatinine is 1.07. Patient remains on diuretics, some improvement overall compared to how she felt when she came in. Objective - Vital Signs Vital signs: Vital Signs Temp 97.4 F L 07/30/18 03:43 Pulse 84 07/30/18 08:19 Resp 16 07/30/18 08:00 BP 107/72 07/30/18 08:00 Pulse Ox 93 L 07/30/18 08:00 Intake & Output 07/29/18 07/30/18 07/30/18 18:59 06:59 18:59 Intake Total 1138 240 Output Total 1000 1500 Balance 138 -1500 240 Weight 240 kg 242.3 kg Intake: Oral 1138 240 Output: Urine 1000 1500 Other: Voiding Method Incontinent # Voids 1 # Bowel Movements 1 - Exam GENERAL EXAM: Revealed a 68-year-old female, morbidly obese, lethargic but arousable, on BiPAP. HEAD: Atraumatic, normocephalic.. EYES: PERRLA, EOMI, no icterus. NOSE: Clear with pink turbinates. Relatively normal. Mucosa THROAT: Crowding of the posterior pharynx Mallampati class IV, no exudates. NECK: Short and obese neck. No masses, no JVD. CHEST: Symmetrical chest expansion. No deformity noted. LUNGS: Diminished breath sounds and crackles at the bases. CVS: Distant S1 and S2 normal with no audible murmur, irregular rhythm. ABDOMEN: Obesity, normal bowel sounds, no guarding or rigidity. SPINE: No scoliosis or deformity SKIN:chronic venous stasis. CENTRAL NERVOUS SYSTEM: Lethargic but arousable, follows simple instructions.. EXTREMITIES: There is 2-3+ peripheral edema. No clubbing, no cyanosis. Peripheral pulses are intact. - Labs CBC & Chem 7: 07/30/18 08:25 07/30/18 08:25 Labs: Abnormal Lab Results - Last 24 Hours (Table) 07/28/18 07/29/18 07/29/18 Range/Units 13:34 11:47 16:42 WBC (3.8-10.6) k/uL MCH (25.0-35.0) pg MCHC (31.0-37.0) g/dL RDW (11.5-15.5) % Neutrophils # (1.3-7.7) k/uL ABG pH (7.35-7.45) ABG pCO2 (35-45) mmHg ABG pO2 (83-108) mmHg ABG HCO3 (21-25) mmol/L ABG Total CO2 (19-24) mmol/L ABG O2 Saturation (94-97) % Chloride (98-107) mmol/L Carbon Dioxide (22-30) mmol/L BUN (7-17) mg/dL Creatinine (0.52-1.04) mg/dL Glucose (74-99) mg/dL POC Glucose (mg/dL) 172 H 163 H (75-99) mg/dL Hemoglobin A1c 6.1 H (4.0-6.0) % 07/29/18 07/30/18 07/30/18 Range/Units 21:09 06:23 08:25 WBC 13.2 H (3.8-10.6) k/uL MCH 24.4 L (25.0-35.0) pg MCHC 29.5 L (31.0-37.0) g/dL RDW 19.5 H (11.5-15.5) % Neutrophils # 11.5 H (1.3-7.7) k/uL ABG pH (7.35-7.45) ABG pCO2 (35-45) mmHg ABG pO2 (83-108) mmHg ABG HCO3 (21-25) mmol/L ABG Total CO2 (19-24) mmol/L ABG O2 Saturation (94-97) % Chloride (98-107) mmol/L Carbon Dioxide (22-30) mmol/L BUN (7-17) mg/dL Creatinine (0.52-1.04) mg/dL Glucose (74-99) mg/dL POC Glucose (mg/dL) 182 H 152 H (75-99) mg/dL Hemoglobin A1c (4.0-6.0) % 07/30/18 07/30/18 Range/Units 08:25 08:47 WBC (3.8-10.6) k/uL MCH (25.0-35.0) pg MCHC (31.0-37.0) g/dL RDW (11.5-15.5) % Neutrophils # (1.3-7.7) k/uL ABG pH 7.30 L (7.35-7.45) ABG pCO2 96 H* (35-45) mmHg ABG pO2 69 L (83-108) mmHg ABG HCO3 47 H* (21-25) mmol/L ABG Total CO2 50 H (19-24) mmol/L ABG O2 Saturation 93.2 L (94-97) % Chloride 92 L (98-107) mmol/L Carbon Dioxide 39 H (22-30) mmol/L BUN 65 H (7-17) mg/dL Creatinine 1.07 H (0.52-1.04) mg/dL Glucose 151 H (74-99) mg/dL POC Glucose (mg/dL) (75-99) mg/dL Hemoglobin A1c (4.0-6.0) % Assessment and Plan Assessment: #1 Acute on chronic hypoxic and hypercapnic respiratory failure, multifactorial , due to a component of diastolic congestive heart failure in a obesity/ hypoventilation syndrome, morbid obesity, chronic obstructive lung disease. #2 Chronic diastolic congestive heart failure #3 Obstructive sleep apnea and obesity hypoventilation syndrome #4 Severe restrictive lung disease secondary to morbid obesity #5 morbid obesity with BMI of 90.8 #6 Chronic atrial fibrillation with a controlled ventricular rate. Rate controlled. On Cardizem and metoprolol. On anticoagulation at home in the form of Eliquis #7 benign essential hypertension #8 Chronic kidney disease stage II #9 Chronic bilateral lower activity edema and chronic venous stasis #10 GERD and history of peptic ulcer disease #11 Microcytic anemia #12 Previous history of smoking #13 Poor overall functional performance based on the above-mentioned multiple comorbidities. Recommendation: Continue BiPAP, continue diuretics, bronchodilators, continue oxygen, presently she is on FiO2 of 50%. IPAP of 14 and EPAP of 5. Overall prognosis is definitely poor and guarded, we'll continue to follow. Time with Patient: Less than 30
[2018-07-30 11:13] LABS: Glucose,Whole Blood 151 mg/dL (75-99)
--- NOTE | 2018-07-30 11:14 | P.PN ---
Subjective This is a pleasant 68 years old female who presents with dyspnea on exertion and found to have acute diastolic congestive heart failure on the top of her obesity hypoventilation syndrome, with possible elements of acute COPD exacerbation. Came to see the patient this morning she was a little bit sleepy and lethargic, she wakes up to verbal and tactile stimuli however she goes back to sleep quickly. Patient was on BiPAP with setting of I/D E 12/5, ABG showed patient retaining CO2, and pulmonary team evaluated the patient and increased her BiPAP setting to I/D E 14/5 minute patient is more awake. Patient continued to be on diuretics and steroid therapy as well as antibiotic. Labs and medication were reviewed. Objective - Vital Signs Vital signs: Vital Signs Temp 97.4 F L 07/30/18 03:43 Pulse 84 07/30/18 08:19 Resp 16 07/30/18 08:00 BP 107/72 07/30/18 08:00 Pulse Ox 93 L 07/30/18 08:00 Intake & Output 07/29/18 07/30/18 07/30/18 18:59 06:59 18:59 Intake Total 1138 240 Output Total 1000 1500 Balance 138 -1500 240 Weight 240 kg 242.3 kg Intake: Oral 1138 240 Output: Urine 1000 1500 Other: Voiding Method Incontinent Incontinent # Voids 1 # Bowel Movements 1 - Exam -GENERAL: The patient is sleepy this morning on 07/30/2018, not in any acute distress. Well developed, well nourished. HEENT: Pupils are round and equally reacting to light. EOMI. No scleral icterus. No conjunctival pallor. Normocephalic, atraumatic. No pharyngeal erythema. No thyromegaly. CARDIOVASCULAR: S1 and S2 present. No murmurs, rubs, or gallops. -PULMONARY: Chest is clear to auscultation, no wheezing or crackles. Decreased air entry on both sides ABDOMEN: Soft, nontender, nondistended, normoactive bowel sounds. No palpable organomegaly. MUSCULOSKELETAL: No joint swelling or deformity. EXTREMITIES: No cyanosis, clubbing, or pedal edema. NEUROLOGICAL: Gross neurological examination did not reveal any focal deficits. SKIN: No rashes. - Labs CBC & Chem 7: 07/30/18 08:25 07/30/18 08:25 Labs: Abnormal Lab Results - Last 24 Hours (Table) 07/28/18 07/29/18 07/29/18 Range/Units 13:34 11:47 16:42 WBC (3.8-10.6) k/uL MCH (25.0-35.0) pg MCHC (31.0-37.0) g/dL RDW (11.5-15.5) % Neutrophils # (1.3-7.7) k/uL ABG pH (7.35-7.45) ABG pCO2 (35-45) mmHg ABG pO2 (83-108) mmHg ABG HCO3 (21-25) mmol/L ABG Total CO2 (19-24) mmol/L ABG O2 Saturation (94-97) % Chloride (98-107) mmol/L Carbon Dioxide (22-30) mmol/L BUN (7-17) mg/dL Creatinine (0.52-1.04) mg/dL Glucose (74-99) mg/dL POC Glucose (mg/dL) 172 H 163 H (75-99) mg/dL Hemoglobin A1c 6.1 H (4.0-6.0) % 07/29/18 07/30/18 07/30/18 Range/Units 21:09 06:23 08:25 WBC 13.2 H (3.8-10.6) k/uL MCH 24.4 L (25.0-35.0) pg MCHC 29.5 L (31.0-37.0) g/dL RDW 19.5 H (11.5-15.5) % Neutrophils # 11.5 H (1.3-7.7) k/uL ABG pH (7.35-7.45) ABG pCO2 (35-45) mmHg ABG pO2 (83-108) mmHg ABG HCO3 (21-25) mmol/L ABG Total CO2 (19-24) mmol/L ABG O2 Saturation (94-97) % Chloride (98-107) mmol/L Carbon Dioxide (22-30) mmol/L BUN (7-17) mg/dL Creatinine (0.52-1.04) mg/dL Glucose (74-99) mg/dL POC Glucose (mg/dL) 182 H 152 H (75-99) mg/dL Hemoglobin A1c (4.0-6.0) % 07/30/18 07/30/18 Range/Units 08:25 08:47 WBC (3.8-10.6) k/uL MCH (25.0-35.0) pg MCHC (31.0-37.0) g/dL RDW (11.5-15.5) % Neutrophils # (1.3-7.7) k/uL ABG pH 7.30 L (7.35-7.45) ABG pCO2 96 H* (35-45) mmHg ABG pO2 69 L (83-108) mmHg ABG HCO3 47 H* (21-25) mmol/L ABG Total CO2 50 H (19-24) mmol/L ABG O2 Saturation 93.2 L (94-97) % Chloride 92 L (98-107) mmol/L Carbon Dioxide 39 H (22-30) mmol/L BUN 65 H (7-17) mg/dL Creatinine 1.07 H (0.52-1.04) mg/dL Glucose 151 H (74-99) mg/dL POC Glucose (mg/dL) (75-99) mg/dL Hemoglobin A1c (4.0-6.0) % Assessment and Plan Assessment: Acute on chronic diastolic CHF, ejection fraction 55-60% Obesity/hypoventilation syndrome Chronic obstructive pulmonary disease, with possible acute exacerbation during this admission Morbid obesity Essential hypertension Chronic kidney disease stage II GERD Plan: This is a pleasant 68 years old female who presents with acute diastolic CHF and obesity hypoventilation syndrome. Patient is on antibiotics, IV diuretics and steroids. Continue with same treatment. Continue symptomatic treatment. Resume home medications. Monitor lytes and vitals. He and cardiology teams input is appreciated. GI and DVT prophylaxis. Further recommendations based on the clinical course of the patient DVT prophylaxis: On Eliquis GI prophylaxis: Pepcid Prognosis is guarded
[2018-07-30] MEDS: FAMOTIDINE 20 MG/2 ML VIAL IV SCH ×2 (12:46→21:12)
[2018-07-30 16:19] LABS: Glucose,Whole Blood 187 mg/dL (75-99)
[2018-07-30 21:07] LABS: Glucose,Whole Blood 182 mg/dL (75-99)
[2018-07-31] MEDS: IPRATROPIUM-ALBUTEROL 3 ML NEB INHALATION PRN ×2 (00:18→04:01)
[2018-07-31] MEDS: PANTOPRAZOLE 40 MG TABLET PO SCH (04:52)
[2018-07-31 05:36] LABS: Glucose,Whole Blood 177 mg/dL (75-99)
[2018-07-31 06:00] LABS: Anisocytosis Slight; Basophils % (A) 0 %; Eosinophils % (A) 0 %; HCT 44.8 % (34.0-46.0); HGB 12.9 gm/dL (11.4-16.0); Hypochromasia Marked; Lymphocytes # (A) 0.8 k/uL (1.0-4.8); Lymphocytes % (A) 7 %; MCH 23.6 pg (25.0-35.0); MCHC 28.8 g/dL (31.0-37.0); MCV 81.9 fL (80.0-100.0); Mean Platelet Volume 8.5; Microcytosis Slight; Monocytes # (A) 0.5 k/uL (0-1.0); Monocytes % (A) 4 %; Neutrophils # (A) 11.6 k/uL (1.3-7.7); Neutrophils % (A) 89 %; Platelet Count 222 k/uL (150-450); Poikilocytosis Moderate; RBC 5.47 m/uL (3.80-5.40); RDW 19.2 % (11.5-15.5); WBC 12.9 k/uL (3.8-10.6)
[2018-07-31 06:10] LABS: Calcium 9.5 mg/dL (8.4-10.2)
[2018-07-31] MEDS: methylPREDNISolone SOD SUCCI 125 MG/2 ML VIAL IV SCH ×4 (06:15→23:55)
[2018-07-31] MEDS: INSULIN ASPART 100 UNIT/ML 1 ML 10 ML VIAL SQ SCH ×4 (06:15→21:16)
--- NOTE | 2018-07-31 06:30 | P.PN ---
Subjective Progress Note Date: 07/31/18 Principal diagnosis: Diastolic heart failure This is a pleasant 68-year-old female patient who follows with Dr. Child in the office. Has history of morbid obesity, chronic diastolic congestive heart failure, chronic atrial fibrillation, COPD, hypertension. Presents to the hospital with complaints of progressively worsening shortness of breath. Admitted with diagnosis of CHF and COPD exacerbation. Chest x-ray on admission showed mild to moderate central venous congestion with subsequent chest x-ray showing worsening CHF. NT proBNP came back elevated at 2850. Troponin was negative 1. BUN is 55 and creatinine 0.88. She's been started on Lasix 40 mg IV push every 8 hours as well as IV Solu-Medrol. EKG showed atrial fibrillation. Blood pressure has been stable. Heart rates have been ranging from 90s to 110. I'll follow-up with her today, she is feeling slightly better in femoral shortness of breath. I did decrease the dose of Lasix yesterday because the creatinine was slightly elevated. I don't have any creatinine from today yet. Her heart rate has been elevated and I did increase the dose of metoprolol 200 mg by mouth twice a day. Objective - Vital Signs Vital signs: Vital Signs Temp 97.2 F L 07/30/18 20:00 Pulse 112 H 07/31/18 04:13 Resp 24 07/31/18 03:17 BP 123/80 07/31/18 03:17 Pulse Ox 95 07/31/18 03:17 Intake & Output 07/30/18 07/30/18 07/31/18 06:59 18:59 06:59 Intake Total 684 100 Output Total 1500 300 600 Balance -1500 384 -500 Weight 242.3 kg 241.3 kg Intake: Oral 684 100 Output: Urine 1500 300 600 Other: Voiding Method Incontinent Incontinent # Voids 1 # Bowel Movements 1 1 - Constitutional General appearance: Present: no acute distress - Respiratory Respiratory: bilateral: diminished - Cardiovascular Rhythm: regular Heart sounds: normal: S1, S2 - Labs CBC & Chem 7: 07/31/18 05:31 07/30/18 08:25 Labs: Abnormal Lab Results - Last 24 Hours (Table) 07/30/18 07/30/18 07/30/18 Range/Units 08:25 08:25 08:47 WBC 13.2 H (3.8-10.6) k/uL RBC (3.80-5.40) m/uL MCH 24.4 L (25.0-35.0) pg MCHC 29.5 L (31.0-37.0) g/dL RDW 19.5 H (11.5-15.5) % Neutrophils # 11.5 H (1.3-7.7) k/uL Lymphocytes # (1.0-4.8) k/uL ABG pH 7.30 L (7.35-7.45) ABG pCO2 96 H* (35-45) mmHg ABG pO2 69 L (83-108) mmHg ABG HCO3 47 H* (21-25) mmol/L ABG Total CO2 50 H (19-24) mmol/L ABG O2 Saturation 93.2 L (94-97) % Chloride 92 L (98-107) mmol/L Carbon Dioxide 39 H (22-30) mmol/L BUN 65 H (7-17) mg/dL Creatinine 1.07 H (0.52-1.04) mg/dL Glucose 151 H (74-99) mg/dL POC Glucose (mg/dL) (75-99) mg/dL 07/30/18 07/30/18 07/30/18 Range/Units 11:02 16:18 21:05 WBC (3.8-10.6) k/uL RBC (3.80-5.40) m/uL MCH (25.0-35.0) pg MCHC (31.0-37.0) g/dL RDW (11.5-15.5) % Neutrophils # (1.3-7.7) k/uL Lymphocytes # (1.0-4.8) k/uL ABG pH (7.35-7.45) ABG pCO2 (35-45) mmHg ABG pO2 (83-108) mmHg ABG HCO3 (21-25) mmol/L ABG Total CO2 (19-24) mmol/L ABG O2 Saturation (94-97) % Chloride (98-107) mmol/L Carbon Dioxide (22-30) mmol/L BUN (7-17) mg/dL Creatinine (0.52-1.04) mg/dL Glucose (74-99) mg/dL POC Glucose (mg/dL) 151 H 187 H 182 H (75-99) mg/dL 07/31/18 07/31/18 Range/Units 05:31 05:34 WBC 12.9 H (3.8-10.6) k/uL RBC 5.47 H (3.80-5.40) m/uL MCH 23.6 L (25.0-35.0) pg MCHC 28.8 L (31.0-37.0) g/dL RDW 19.2 H (11.5-15.5) % Neutrophils # 11.6 H (1.3-7.7) k/uL Lymphocytes # 0.8 L (1.0-4.8) k/uL ABG pH (7.35-7.45) ABG pCO2 (35-45) mmHg ABG pO2 (83-108) mmHg ABG HCO3 (21-25) mmol/L ABG Total CO2 (19-24) mmol/L ABG O2 Saturation (94-97) % Chloride (98-107) mmol/L Carbon Dioxide (22-30) mmol/L BUN (7-17) mg/dL Creatinine (0.52-1.04) mg/dL Glucose (74-99) mg/dL POC Glucose (mg/dL) 177 H (75-99) mg/dL Assessment and Plan Assessment: Assessment #1 chronic atrial fibrillation was controlled heart rate #2 chronic diastolic heart failure #3 acute on chronic renal failure #4 chronic hypoxic respiratory failure #5 multiple comorbid conditions including obesity Plan #1 continue the current dose of Lasix IV #2 continue the current medical regimen #3 continue monitor the kidney function and electrolytes #4 increase the dose of metoprolol
[2018-07-31] MEDS: FORMOTEROL FUMARATE 20 MCG/2 ML NEBU INHALATION SCH ×2 (07:41→21:03)
[2018-07-31] MEDS: SYMBICORT 160-4.5 MCG INHALER INHALATION SCH ×2 (07:42→21:03)
[2018-07-31] MEDS: IPRATROPIUM-ALBUTEROL 3 ML NEB INHALATION SCH ×4 (07:50→21:03)
[2018-07-31] MEDS: ASPIRIN 81 MG PO SCH (08:49)
[2018-07-31] MEDS: APIXABAN 5 MG TAB PO SCH ×2 (08:49→21:15)
[2018-07-31] MEDS: FUROSEMIDE 10 MG/ML 4 ML VIAL IV SCH ×2 (08:50→21:15)
[2018-07-31] MEDS: FAMOTIDINE 20 MG/2 ML VIAL IV SCH ×2 (08:50→21:15)
[2018-07-31] MEDS: LEVOFLOXACIN 500 MG TAB PO SCH (08:50)
[2018-07-31] MEDS: LORATADINE 10 MG TAB PO SCH (08:51)
[2018-07-31] MEDS: METOPROLOL TARTRATE 50 MG TAB PO SCH ×2 (08:51→21:19)
[2018-07-31] MEDS: SPIRONOLACTONE 25 MG TAB PO SCH (08:52)
[2018-07-31] MEDS: DILTIAZEM ORAL 30 MG TAB PO SCH ×2 (08:54→21:15)
--- NOTE | 2018-07-31 10:10 | P.PN ---
Subjective Progress Note Date: 07/31/18 Principal diagnosis: Acute on chronic hypoxic and hypercapnic respiratory failure, multifactorial. This is a pleasant 68-year-old female patient who follows with home visiting physicians. She has a history of morbid obesity with a BMI of 90, chronic hypoxic respiratory failure, chronic hypercapnic respiratory failure, diastolic congestive heart failure, borderline pulmonary hypertension, obstructive sleep apnea, obesity hypoventilation syndrome, chronic atrial fibrillation, hypertension, chronic kidney disease stage II, chronic lower extremity edema and venous stasis, chronic microcytic anemia, acid reflux, peptic ulcer disease , remote smoking, diverticulitis, previous history of ventilatory dependent respiratory failure, urinary tract infections, C. difficile colitis, MRSA in the sputum. She presented here to the emergency room yesterday as recommended by her visiting physician for concerns regarding fluid volume overload. Chest x -ray did reveal evidence of pulmonary vascular congestion and cardiomegaly. Limited echocardiogram revealed preserved left ventricular systolic function with ejection fraction 50-55%. She is seen today in consultation on the selective care unit. She is currently awake and alert in no acute distress. She is currently maintaining O2 saturations in the 90s on 5 L/m per nasal cannula. Utilizing the BiPAP during the evenings and throughout the day while napping. Afebrile. White count 11.7. Hemoglobin 12.3. Bicarb 39. Creatinine 0.88. Troponin negative. ProBNP 2850. Reevaluated today on 07/30/2018, patient remains on the selective care unit, presently on BiPAP, remains on diuretics, patient is a bit lethargic, ABG reflected hypercapnia and respiratory acidosis with significant metabolic compensation. ABG showed a CO2 of 96 pO2 of 69 pH of 7.30. Hence On BiPAP with IPAP of 14 and EPAP of 5. Basic metabolic profile showed bicarb level of 40 BUN is 65 creatinine is 1.07. Patient remains on diuretics, some improvement overall compared to how she felt when she came in. Reevaluated on 07/31/2018, remains on selective care unit, used BiPAP last night , presently on nasal cannula, remains on diuretics and bronchodilators, patient is alert oriented, denies any specific complaints. CBC is relatively normal. Electrolytes are relatively normal. BUN is 69 creatinine is 0.93. ABG yesterday showed a pO2 of 69 pCO2 of 96 and pH of 7.30. Chest x-ray from 2 days ago showed mostly cardiomegaly, and some component of congestive heart failure hence repeat chest x-ray will be done in a.m. to evaluate response to diuretics. Objective - Vital Signs Vital signs: Vital Signs Temp 97.5 F L 07/31/18 08:00 Pulse 110 H 07/31/18 08:00 Resp 18 07/31/18 08:00 BP 120/65 07/31/18 08:00 Pulse Ox 93 L 07/31/18 08:00 Intake & Output 07/30/18 07/31/18 07/31/18 18:59 06:59 18:59 Intake Total 684 100 240 Output Total 300 600 Balance 384 -500 240 Weight 241.3 kg Intake: Oral 684 100 240 Output: Urine 300 600 Other: Voiding Method Incontinent Incontinent # Bowel Movements 1 - Exam GENERAL EXAM: Revealed a 68-year-old female, morbidly obese, alert oriented, on nasal cannula. HEAD: Atraumatic, normocephalic.. EYES: PERRLA, EOMI, no icterus THROAT: Crowding of the posterior pharynx Mallampati class IV, NECK: Short and obese neck. No masses, no JVD. CHEST: Symmetrical chest expansion. No deformity noted. LUNGS: Diminished breath sounds and crackles at the bases. CVS: Regular rhythm, Distant S1 and S2 normal with no murmur ABDOMEN: Obesity, normal bowel sounds, no guarding or rigidity. SPINE: No scoliosis or deformity SKIN:chronic venous stasis. CENTRAL NERVOUS SYSTEM: Alert oriented, 3, no gross focal neurologic deficits. EXTREMITIES: There is 2-3+ peripheral edema. No clubbing, no cyanosis. Peripheral pulses are intact. - Labs CBC & Chem 7: 07/31/18 05:31 07/31/18 05:31 Labs: Abnormal Lab Results - Last 24 Hours (Table) 07/30/18 07/30/18 07/30/18 Range/Units 11:02 16:18 21:05 WBC (3.8-10.6) k/uL RBC (3.80-5.40) m/uL MCH (25.0-35.0) pg MCHC (31.0-37.0) g/dL RDW (11.5-15.5) % Neutrophils # (1.3-7.7) k/uL Lymphocytes # (1.0-4.8) k/uL Chloride (98-107) mmol/L Carbon Dioxide (22-30) mmol/L BUN (7-17) mg/dL Glucose (74-99) mg/dL POC Glucose (mg/dL) 151 H 187 H 182 H (75-99) mg/dL 07/31/18 07/31/18 07/31/18 Range/Units 05:31 05:31 05:34 WBC 12.9 H (3.8-10.6) k/uL RBC 5.47 H (3.80-5.40) m/uL MCH 23.6 L (25.0-35.0) pg MCHC 28.8 L (31.0-37.0) g/dL RDW 19.2 H (11.5-15.5) % Neutrophils # 11.6 H (1.3-7.7) k/uL Lymphocytes # 0.8 L (1.0-4.8) k/uL Chloride 89 L (98-107) mmol/L Carbon Dioxide 37 H (22-30) mmol/L BUN 69 H (7-17) mg/dL Glucose 166 H (74-99) mg/dL POC Glucose (mg/dL) 177 H (75-99) mg/dL Assessment and Plan Assessment: #1 Acute on chronic hypoxic and hypercapnic respiratory failure, multifactorial , due to a component of diastolic congestive heart failure in a obesity/ hypoventilation syndrome patient, chronic obstructive lung disease. #2 Chronic diastolic congestive heart failure #3 Obstructive sleep apnea and obesity hypoventilation syndrome #4 Severe restrictive lung disease secondary to morbid obesity #5 morbid obesity with BMI of 90.8 #6 Chronic atrial fibrillation with a controlled ventricular rate. Rate controlled. On Cardizem and metoprolol. On anticoagulation at home in the form of Eliquis #7 benign essential hypertension #8 Chronic kidney disease stage II #9 Chronic bilateral lower activity edema and chronic venous stasis #10 GERD and history of peptic ulcer disease #11 Microcytic anemia #12 Previous history of smoking #13 Poor overall functional performance based on the above-mentioned multiple comorbidities. Recommendation: Continue present treatment plan including diuretics, bronchodilators, intermittently on BiPAP especially at night when she goes to bed, reevaluate chest x-ray in a.m. Consider discharge planning in the next 48 hours. Time with Patient: Less than 30
--- NOTE | 2018-07-31 11:46 | P.PN ---
Subjective This is a pleasant 68 years old female who presents with dyspnea on exertion and found to have acute diastolic congestive heart failure on the top of her obesity hypoventilation syndrome, with possible elements of acute COPD exacerbation. Came to see the patient this morning she was a little bit sleepy and lethargic, she wakes up to verbal and tactile stimuli however she goes back to sleep quickly. Patient was on BiPAP with setting of I/D E 12/5, ABG showed patient retaining CO2, and pulmonary team evaluated the patient and increased her BiPAP setting to I/D E 14/5 minute patient is more awake. Patient continued to be on diuretics and steroid therapy as well as antibiotic. Labs and medication were reviewed. 07-31-18 Patient is still dyspneic however she is more awake, prepped yesterday morning. Patient feels she is getting better. However patient still complains from orthopnea. Patient denies cough or chest pain. Discussed the case with pulmonary team, will continue diuretic at this point. An increased dose of metoprolol by cardiology. Patient clarified to me she uses home oxygen 24/7 at 4 L/m via [place]. Also she is steroid dependent for the last 3 months, patient states she is been on and off his steroids says that 2013. Patient states she has BiPAP machine at home Objective - Vital Signs Vital signs: Vital Signs Temp 97.5 F L 07/31/18 08:00 Pulse 110 H 07/31/18 08:00 Resp 18 07/31/18 08:00 BP 120/65 07/31/18 08:00 Pulse Ox 93 L 07/31/18 08:00 Intake & Output 07/30/18 07/31/18 07/31/18 18:59 06:59 18:59 Intake Total 684 100 240 Output Total 300 600 Balance 384 -500 240 Weight 241.3 kg Intake: Oral 684 100 240 Output: Urine 300 600 Other: Voiding Method Incontinent Incontinent Incontinent # Bowel Movements 1 - Exam -GENERAL: The patient is sleepy this morning on 07/30/2018, not in any acute distress. Well developed, well nourished. HEENT: Pupils are round and equally reacting to light. EOMI. No scleral icterus. No conjunctival pallor. Normocephalic, atraumatic. No pharyngeal erythema. No thyromegaly. CARDIOVASCULAR: S1 and S2 present. No murmurs, rubs, or gallops. -PULMONARY: Chest is clear to auscultation, no wheezing or crackles. Decreased air entry on both sides ABDOMEN: Soft, nontender, nondistended, normoactive bowel sounds. No palpable organomegaly. MUSCULOSKELETAL: No joint swelling or deformity. EXTREMITIES: No cyanosis, clubbing, or pedal edema. NEUROLOGICAL: Gross neurological examination did not reveal any focal deficits. SKIN: No rashes. - Labs CBC & Chem 7: 07/31/18 05:31 07/31/18 05:31 Labs: Abnormal Lab Results - Last 24 Hours (Table) 07/30/18 07/30/18 07/31/18 Range/Units 16:18 21:05 05:31 WBC 12.9 H (3.8-10.6) k/uL RBC 5.47 H (3.80-5.40) m/uL MCH 23.6 L (25.0-35.0) pg MCHC 28.8 L (31.0-37.0) g/dL RDW 19.2 H (11.5-15.5) % Neutrophils # 11.6 H (1.3-7.7) k/uL Lymphocytes # 0.8 L (1.0-4.8) k/uL Chloride (98-107) mmol/L Carbon Dioxide (22-30) mmol/L BUN (7-17) mg/dL Glucose (74-99) mg/dL POC Glucose (mg/dL) 187 H 182 H (75-99) mg/dL 07/31/18 07/31/18 Range/Units 05:31 05:34 WBC (3.8-10.6) k/uL RBC (3.80-5.40) m/uL MCH (25.0-35.0) pg MCHC (31.0-37.0) g/dL RDW (11.5-15.5) % Neutrophils # (1.3-7.7) k/uL Lymphocytes # (1.0-4.8) k/uL Chloride 89 L (98-107) mmol/L Carbon Dioxide 37 H (22-30) mmol/L BUN 69 H (7-17) mg/dL Glucose 166 H (74-99) mg/dL POC Glucose (mg/dL) 177 H (75-99) mg/dL Assessment and Plan Assessment: Acute on chronic diastolic CHF, ejection fraction 55-60% Obesity/hypoventilation syndrome Chronic obstructive pulmonary disease, with possible acute exacerbation during this admission Chronic atrial fibrillation Morbid obesity Essential hypertension Chronic kidney disease stage II GERD Plan: This is a pleasant 68 years old female who presents with acute diastolic CHF and obesity hypoventilation syndrome. Patient is on antibiotics, IV diuretics and steroids. Continue with same treatment. Continue symptomatic treatment. Resume home medications. Monitor lytes and vitals. He and cardiology teams input is appreciated. GI and DVT prophylaxis. Further recommendations based on the clinical course of the patient DVT prophylaxis: On Eliquis GI prophylaxis: Pepcid Prognosis is guarded
[2018-07-31 11:53] LABS: Glucose,Whole Blood 196 mg/dL (75-99)
[2018-07-31 16:19] LABS: Glucose,Whole Blood 162 mg/dL (75-99)
[2018-07-31 21:00] LABS: Glucose,Whole Blood 211 mg/dL (75-99)
[2018-08-01 05:39] LABS: Glucose,Whole Blood 217 mg/dL (75-99)
[2018-08-01] MEDS: INSULIN ASPART 100 UNIT/ML 1 ML 10 ML VIAL SQ SCH ×4 (06:40→20:46)
[2018-08-01] MEDS: methylPREDNISolone SOD SUCCI 125 MG/2 ML VIAL IV SCH ×4 (06:40→23:09)
[2018-08-01] MEDS: PANTOPRAZOLE 40 MG TABLET PO SCH (06:40)
[2018-08-01 07:46] LABS: Anisocytosis Slight; Basophils % (A) 0 %; Eosinophils % (A) 0 %; HCT 44.5 % (34.0-46.0); Hypochromasia Marked; Lymphocytes # (A) 0.6 k/uL (1.0-4.8); Lymphocytes % (A) 7 %; MCH 24.4 pg (25.0-35.0); MCHC 29.3 g/dL (31.0-37.0); MCV 83.4 fL (80.0-100.0); Mean Platelet Volume 8.6; Microcytosis Slight; Monocytes # (A) 0.4 k/uL (0-1.0); Monocytes % (A) 4 %; Neutrophils # (A) 7.3 k/uL (1.3-7.7); Neutrophils % (A) 87 %; Platelet Count 197 k/uL (150-450); Poikilocytosis Slight; RBC 5.33 m/uL (3.80-5.40); RDW 19.1 % (11.5-15.5); WBC 8.4 k/uL (3.8-10.6)
[2018-08-01 08:09] LABS: Calcium 9.5 mg/dL (8.4-10.2); Potassium 3.5 mmol/L (3.5-5.1)
[2018-08-01] MEDS: ASPIRIN 81 MG PO SCH (08:25)
[2018-08-01] MEDS: APIXABAN 5 MG TAB PO SCH ×2 (08:25→20:45)
[2018-08-01] MEDS: DILTIAZEM ORAL 30 MG TAB PO SCH ×2 (08:25→20:45)
[2018-08-01] MEDS: FAMOTIDINE 20 MG/2 ML VIAL IV SCH (08:26)
[2018-08-01] MEDS: FUROSEMIDE 10 MG/ML 4 ML VIAL IV SCH ×2 (08:26→20:46)
[2018-08-01] MEDS: LORATADINE 10 MG TAB PO SCH (08:37)
[2018-08-01] MEDS: SPIRONOLACTONE 25 MG TAB PO SCH (08:37)
[2018-08-01] MEDS: LEVOFLOXACIN 500 MG TAB PO SCH (08:37)
[2018-08-01] MEDS: METOPROLOL TARTRATE 50 MG TAB PO SCH ×2 (08:41→20:45)
[2018-08-01] MEDS: FORMOTEROL FUMARATE 20 MCG/2 ML NEBU INHALATION SCH ×2 (09:10→21:19)
[2018-08-01] MEDS: SYMBICORT 160-4.5 MCG INHALER INHALATION SCH ×2 (09:10→21:18)
[2018-08-01] MEDS: IPRATROPIUM-ALBUTEROL 3 ML NEB INHALATION SCH ×4 (09:10→21:19)
--- NOTE | 2018-08-01 11:19 | P.PN ---
Subjective Progress Note Date: 08/01/18 This is a pleasant 68-year-old female patient follows with Dr. Child in the office. Has history of morbid obesity, chronic diastolic congestive heart failure, chronic atrial fibrillation, COPD and hypertension. She presented to the hospital with complaints of progressively worsening shortness of breath. She was admitted with diagnosis of CHF and COPD exacerbation. Chest x-ray on admission showed mild to moderate central venous congestion with subsequent chest x-ray showing worsening CHF. NT proBNP came back elevated at 2852 was initially started on Lasix 40 mg IV push every 8 hours as well as IV Solu-Medrol. EKG showed atrial fibrillation blood pressure 7 stable. Heart rates are better controlled today. She is currently on Lasix 40 mg every 12 hours and Solu-Medrol 60 mg every 6 hours. The Lasix was decreased due to worsening renal failure. Today labs showed B1 of 69 and creatinine of 1.0. NT proBNP done today came back at 3570. Upon examination, patient is using her BiPAP. Continues complain of some significant shortness of breath with minimal exertion. Objective - Vital Signs Vital signs: Vital Signs Temp 96.3 F L 08/01/18 08:00 Pulse 108 H 08/01/18 09:23 Resp 16 08/01/18 08:00 BP 127/77 08/01/18 08:00 Pulse Ox 96 08/01/18 04:00 Intake & Output 07/31/18 08/01/18 08/01/18 18:59 06:59 18:59 Intake Total 684 530 232 Output Total 1200 Balance -516 530 232 Weight 233.1 kg Intake: IV 50 10 .9 20 Invasive Line 2 30 10 Oral 684 480 222 Output: Urine 1200 Other: Voiding Method Incontinent Incontinent Incontinent - Exam PHYSICAL EXAMINATION: HEENT: Head is atraumatic, normocephalic. Pupils equal, round. Neck is supple. Difficult to assess for elevated jugular venous pressure. HEART EXAMINATION: Heart sounds irregularly irregular, S1 and S2 normal. No murmur or gallop heard. CHEST EXAMINATION: Lungs diminished air entry bilaterally. No chest wall tenderness is noted on palpation or with deep breathing. ABDOMEN: Soft, obese nontender. Bowel sounds are heard. No organomegaly noted. EXTREMITIES: Errol wraps noted to bilateral lower extremities. NEUROLOGIC patient is awake, alert and oriented x2-3. . - Labs CBC & Chem 7: 08/01/18 07:20 08/01/18 07:20 Labs: Abnormal Lab Results - Last 24 Hours (Table) 07/31/18 07/31/18 07/31/18 Range/Units 11:51 16:17 20:59 MCH (25.0-35.0) pg MCHC (31.0-37.0) g/dL RDW (11.5-15.5) % Lymphocytes # (1.0-4.8) k/uL Chloride (98-107) mmol/L Carbon Dioxide (22-30) mmol/L BUN (7-17) mg/dL Glucose (74-99) mg/dL POC Glucose (mg/dL) 196 H 162 H 211 H (75-99) mg/dL 08/01/18 08/01/18 08/01/18 Range/Units 05:37 07:20 07:20 MCH 24.4 L (25.0-35.0) pg MCHC 29.3 L (31.0-37.0) g/dL RDW 19.1 H (11.5-15.5) % Lymphocytes # 0.6 L (1.0-4.8) k/uL Chloride 92 L (98-107) mmol/L Carbon Dioxide 39 H (22-30) mmol/L BUN 69 H (7-17) mg/dL Glucose 164 H (74-99) mg/dL POC Glucose (mg/dL) 217 H (75-99) mg/dL Assessment and Plan Assessment: #1 acute on chronic diastolic congestive heart failure #2 chronic atrial fibrillation #3 COPD exacerbation #4 morbid obesity #5 acute and chronic renal failure #6 chronic hypoxic respiratory failure #7 multiple comorbid conditions Plan: From cardiology perspective, continue current dose of IV Lasix. Continue to monitor daily weights, intake and output as well as renal function and electrolytes. Continue anticoagulation. Await results of this morning's chest x-ray. Further recommendations to follow. CARDIAC CARE UNIT NURSE note has been reviewed, I agree with a documented findings and plan of care. Patient was seen and examined.
--- NOTE | 2018-08-01 11:33 | XR ---
EXAMINATION TYPE: XR chest 1V portable DATE OF EXAM: 08/01/2018 CLINICAL HISTORY: Difficulty breathing progress study. History of COPD and CHF with shortness of bladimir ath TECHNIQUE: Single AP portable upright view of the chest is obtained. COMPARISON: Chest x-ray from 3 days earlier and older studies. FINDINGS: Cardiomegaly with moderate central vascular congestion is present. Atherosclerotic thoraci c aorta is noted. No suspicious new focal airspace opacity, pleural effusion, pneumothorax is seen. O sseous structures are intact. IMPRESSION: Suspect persistent CHF exacerbation as there is cardiomegaly with moderate central vascul ar congestion redemonstrated.
[2018-08-01 11:47] LABS: Glucose,Whole Blood 136 mg/dL (75-99)
--- NOTE | 2018-08-01 14:16 | P.PN ---
Subjective Progress Note Date: 08/01/18 Principal diagnosis: Acute on chronic hypoxic and hypercapnic respiratory failure, multifactorial This is a pleasant 68-year-old female patient who follows with home visiting physicians. She has a history of morbid obesity with a BMI of 90, chronic hypoxic respiratory failure, chronic hypercapnic respiratory failure, diastolic congestive heart failure, borderline pulmonary hypertension, obstructive sleep apnea, obesity hypoventilation syndrome, chronic atrial fibrillation, hypertension, chronic kidney disease stage II, chronic lower extremity edema and venous stasis, chronic microcytic anemia, acid reflux, peptic ulcer disease , remote smoking, diverticulitis, previous history of ventilatory dependent respiratory failure, urinary tract infections, C. difficile colitis, MRSA in the sputum. She presented here to the emergency room yesterday as recommended by her visiting physician for concerns regarding fluid volume overload. Chest x -ray did reveal evidence of pulmonary vascular congestion and cardiomegaly. Limited echocardiogram revealed preserved left ventricular systolic function with ejection fraction 50-55%. She is seen today in consultation on the selective care unit. She is currently awake and alert in no acute distress. She is currently maintaining O2 saturations in the 90s on 5 L/m per nasal cannula. Utilizing the BiPAP during the evenings and throughout the day while napping. Afebrile. White count 11.7. Hemoglobin 12.3. Bicarb 39. Creatinine 0.88. Troponin negative. ProBNP 2850. Reevaluated today on 07/30/2018, patient remains on the selective care unit, presently on BiPAP, remains on diuretics, patient is a bit lethargic, ABG reflected hypercapnia and respiratory acidosis with significant metabolic compensation. ABG showed a CO2 of 96 pO2 of 69 pH of 7.30. Hence On BiPAP with IPAP of 14 and EPAP of 5. Basic metabolic profile showed bicarb level of 40 BUN is 65 creatinine is 1.07. Patient remains on diuretics, some improvement overall compared to how she felt when she came in. Reevaluated on 07/31/2018, remains on selective care unit, used BiPAP last night , presently on nasal cannula, remains on diuretics and bronchodilators, patient is alert oriented, denies any specific complaints. CBC is relatively normal. Electrolytes are relatively normal. BUN is 69 creatinine is 0.93. ABG yesterday showed a pO2 of 69 pCO2 of 96 and pH of 7.30. Chest x-ray from 2 days ago showed mostly cardiomegaly, and some component of congestive heart failure hence repeat chest x-ray will be done in a.m. to evaluate response to diuretics. On 08/01/2018 patient seen in follow-up. She is currently on BiPAP, she is wearing it intermittently through the day and at bedtime. Pulse ox on 5 L per nasal cannula is 91%, signs are stable, patient is afebrile. Lung sounds are clear, diminished. Repeat chest x-ray has been obtained, and shows improvement in persistent CHF and cardiomegaly with moderate central vascular congestion, patient is down 8.2 kg in to the recorded weights in the last 24 hours. From pulmonary perspective patient inserted for discharge home today on oral diuretics, she has a BiPAP unit at home on which she can continue. Objective - Vital Signs Vital signs: Vital Signs Temp 96.3 F L 08/01/18 08:00 Pulse 100 08/01/18 13:15 Resp 16 08/01/18 12:00 BP 143/65 08/01/18 12:00 Pulse Ox 91 L 08/01/18 12:00 Intake & Output 07/31/18 08/01/18 08/01/18 18:59 06:59 18:59 Intake Total 684 530 242 Output Total 1200 Balance -516 530 242 Weight 233.1 kg Intake: IV 50 20 .9 20 Invasive Line 2 30 20 Oral 684 480 222 Output: Urine 1200 Other: Voiding Method Incontinent Incontinent Incontinent - Exam GENERAL EXAM: Revealed a 68-year-old female, morbidly obese, alert oriented, on nasal cannula. HEAD: Atraumatic, normocephalic.. EYES: PERRLA, EOMI, no icterus THROAT: Crowding of the posterior pharynx Mallampati class IV, NECK: Short and obese neck. No masses, no JVD. CHEST: Symmetrical chest expansion. No deformity noted. LUNGS: Diminished breath sounds and crackles at the bases. CVS: Regular rhythm, Distant S1 and S2 normal with no murmur ABDOMEN: Obesity, normal bowel sounds, no guarding or rigidity. SPINE: No scoliosis or deformity SKIN:chronic venous stasis. CENTRAL NERVOUS SYSTEM: Alert oriented, 3, no gross focal neurologic deficits. EXTREMITIES: There is 2-3+ peripheral edema. No clubbing, no cyanosis. Peripheral pulses are intact. - Labs CBC & Chem 7: 08/01/18 07:20 08/01/18 07:20 Labs: Abnormal Lab Results - Last 24 Hours (Table) 07/31/18 07/31/18 08/01/18 Range/Units 16:17 20:59 05:37 MCH (25.0-35.0) pg MCHC (31.0-37.0) g/dL RDW (11.5-15.5) % Lymphocytes # (1.0-4.8) k/uL Chloride (98-107) mmol/L Carbon Dioxide (22-30) mmol/L BUN (7-17) mg/dL Glucose (74-99) mg/dL POC Glucose (mg/dL) 162 H 211 H 217 H (75-99) mg/dL 08/01/18 08/01/18 08/01/18 Range/Units 07:20 07:20 11:45 MCH 24.4 L (25.0-35.0) pg MCHC 29.3 L (31.0-37.0) g/dL RDW 19.1 H (11.5-15.5) % Lymphocytes # 0.6 L (1.0-4.8) k/uL Chloride 92 L (98-107) mmol/L Carbon Dioxide 39 H (22-30) mmol/L BUN 69 H (7-17) mg/dL Glucose 164 H (74-99) mg/dL POC Glucose (mg/dL) 136 H (75-99) mg/dL Assessment and Plan Plan: #1 Acute on chronic hypoxic and hypercapnic respiratory failure, multifactorial , due to a component of diastolic congestive heart failure in a obesity/ hypoventilation syndrome patient, chronic obstructive lung disease. #2 Chronic diastolic congestive heart failure #3 Obstructive sleep apnea and obesity hypoventilation syndrome #4 Severe restrictive lung disease secondary to morbid obesity #5 morbid obesity with BMI of 90.8 #6 Chronic atrial fibrillation with a controlled ventricular rate. Rate controlled. On Cardizem and metoprolol. On anticoagulation at home in the form of Eliquis #7 benign essential hypertension #8 Chronic kidney disease stage II #9 Chronic bilateral lower activity edema and chronic venous stasis #10 GERD and history of peptic ulcer disease #11 Microcytic anemia #12 Previous history of smoking #13 Poor overall functional performance based on the above-mentioned multiple comorbidities. Plan: Today's chest x-ray has been reviewed, shows improvement in the appearance of congestive heart failure changes, central vascular congestion. Clinically patient is stable, denies any chest pain, denies any worsening shortness of breath. She continues on her BiPAP support at bedtime and as needed during the day. From pulmonary perspective patient is stable for discharge home on oral diuretics, maintenance inhalers and nebulized treatments, she already has a BiPAP unit and home oxygen at home which she can continue. I performed a history & physical examination of the patient and discussed their management with my nurse practitioner, Maru Meyers. I reviewed the nurse practitioner's note and agree with the documented findings and plan of care. Lung sounds are diminished. The findings and the impression was discussed with the patient. I attest to the documentation by the nurse practitioner. Time with Patient: Less than 30
[2018-08-01 16:54] LABS: Glucose,Whole Blood 224 mg/dL (75-99)
--- NOTE | 2018-08-01 19:30 | P.PN ---
Subjective This is a pleasant 68 years old female who presents with dyspnea on exertion and found to have acute diastolic congestive heart failure on the top of her obesity hypoventilation syndrome, with possible elements of acute COPD exacerbation. Came to see the patient this morning she was a little bit sleepy and lethargic, she wakes up to verbal and tactile stimuli however she goes back to sleep quickly. Patient was on BiPAP with setting of I/D E 12/5, ABG showed patient retaining CO2, and pulmonary team evaluated the patient and increased her BiPAP setting to I/D E 14/5 minute patient is more awake. Patient continued to be on diuretics and steroid therapy as well as antibiotic. Labs and medication were reviewed. 07-31-18 Patient is still dyspneic however she is more awake, prepped yesterday morning. Patient feels she is getting better. However patient still complains from orthopnea. Patient denies cough or chest pain. Discussed the case with pulmonary team, will continue diuretic at this point. An increased dose of metoprolol by cardiology. Patient clarified to me she uses home oxygen 24/7 at 4 L/m via [place]. Also she is steroid dependent for the last 3 months, patient states she is been on and off his steroids says that 2013. Patient states she has BiPAP machine at home 08-01-18 patient states she feels better today with her breathing looks better as and her dyspnea is resolving. She still denies chest pain or phlegm.María change in medication today. Chest x-ray suspected CHF exacerbationpreoperative cardiology evaluated the patient and recommended to continue Lasix and anticoagulation. However pulmonary team showed improvement in the chest x-ray and recommended to discharge the patienton oral diuretic and BiPAP Objective - Vital Signs Vital signs: Vital Signs Temp 98.4 F 08/01/18 16:00 Pulse 102 H 08/01/18 17:10 Resp 18 08/01/18 16:00 BP 130/65 08/01/18 16:00 Pulse Ox 94 L 08/01/18 17:03 Intake & Output 08/01/18 08/01/18 08/02/18 06:59 18:59 06:59 Intake Total 530 512 240 Balance 530 512 240 Weight 233.1 kg Intake: IV 50 50 .9 20 Invasive Line 2 30 50 Oral 480 462 240 Other: Voiding Method Incontinent Incontinent # Voids 2 2 - Labs CBC & Chem 7: 08/01/18 07:20 08/01/18 07:20 Labs: Abnormal Lab Results - Last 24 Hours (Table) 07/31/18 08/01/18 08/01/18 Range/Units 20:59 05:37 07:20 MCH 24.4 L (25.0-35.0) pg MCHC 29.3 L (31.0-37.0) g/dL RDW 19.1 H (11.5-15.5) % Lymphocytes # 0.6 L (1.0-4.8) k/uL Chloride (98-107) mmol/L Carbon Dioxide (22-30) mmol/L BUN (7-17) mg/dL Glucose (74-99) mg/dL POC Glucose (mg/dL) 211 H 217 H (75-99) mg/dL 08/01/18 08/01/18 08/01/18 Range/Units 07:20 11:45 16:49 MCH (25.0-35.0) pg MCHC (31.0-37.0) g/dL RDW (11.5-15.5) % Lymphocytes # (1.0-4.8) k/uL Chloride 92 L (98-107) mmol/L Carbon Dioxide 39 H (22-30) mmol/L BUN 69 H (7-17) mg/dL Glucose 164 H (74-99) mg/dL POC Glucose (mg/dL) 136 H 224 H (75-99) mg/dL Assessment and Plan Assessment: Acute on chronic diastolic CHF, ejection fraction 55-60% Obesity/hypoventilation syndrome Chronic obstructive pulmonary disease, with possible acute exacerbation during this admission Chronic atrial fibrillation Morbid obesity Essential hypertension Chronic kidney disease stage II GERD Plan: This is a pleasant 68 years old female who presents with acute diastolic CHF and obesity hypoventilation syndrome. Patient is on antibiotics, IV diuretics and steroids. Continue with same treatment. Continue symptomatic treatment. Resume home medications. Monitor lytes and vitals. He and cardiology teams input is appreciated. GI and DVT prophylaxis. Further recommendations based on the clinical course of the patient DVT prophylaxis: On Eliquis GI prophylaxis: Pepcid Prognosis is guarded
[2018-08-01 19:52] LABS: Glucose,Whole Blood 200 mg/dL (75-99)
[2018-08-01] MEDS: FAMOTIDINE 20 MG TAB PO SCH (20:45)
[2018-08-02 00:59] LABS: ABG Base Excess 21.8 mmol/L; ABG Oxygen Saturation 96.5 % (94-97); ABG PH 7.37 (7.35-7.45); ABG PO2 88 mmHg (83-108); ABG TCO2 50 mmol/L (19-24)
[2018-08-02 01:11] LABS: ABG HCO3 47 mmol/L (21-25); ABG PCO2 83 mmHg (35-45)
[2018-08-02 01:24] LABS: Anisocytosis Slight; Basophils % (A) 0 %; Eosinophils % (A) 0 %; HGB 12.9 gm/dL (11.4-16.0); Hypochromasia Marked; Lymphocytes # (A) 0.5 k/uL (1.0-4.8); Lymphocytes % (A) 6 %; MCH 24.4 pg (25.0-35.0); MCHC 29.2 g/dL (31.0-37.0); MCV 83.3 fL (80.0-100.0); Mean Platelet Volume 8.4; Microcytosis Slight; Monocytes # (A) 0.4 k/uL (0-1.0); Monocytes % (A) 5 %; Neutrophils # (A) 6.5 k/uL (1.3-7.7); Neutrophils % (A) 87 %; Platelet Count 179 k/uL (150-450); Poikilocytosis Slight; RBC 5.28 m/uL (3.80-5.40); RDW 18.9 % (11.5-15.5); WBC 7.6 k/uL (3.8-10.6)
[2018-08-02 01:50] LABS: Calcium 9.4 mg/dL (8.4-10.2); Magnesium 2.3 mg/dL (1.6-2.3); Potassium 3.9 mmol/L (3.5-5.1)
[2018-08-02 06:51] LABS: Glucose,Whole Blood 133 mg/dL (75-99)
[2018-08-02] MEDS: methylPREDNISolone SOD SUCCI 125 MG/2 ML VIAL IV SCH ×3 (06:55→17:52)
[2018-08-02] MEDS: INSULIN ASPART 100 UNIT/ML 1 ML 10 ML VIAL SQ SCH ×3 (06:56→17:52)
[2018-08-02] MEDS: PANTOPRAZOLE 40 MG TABLET PO SCH (06:56)
[2018-08-02] MEDS: FORMOTEROL FUMARATE 20 MCG/2 ML NEBU INHALATION SCH (07:12)
[2018-08-02] MEDS: IPRATROPIUM-ALBUTEROL 3 ML NEB INHALATION SCH ×3 (07:12→15:20)
[2018-08-02] MEDS: SYMBICORT 160-4.5 MCG INHALER INHALATION SCH (07:13)
[2018-08-02 07:17] VITALS: RESP 20
[2018-08-02 08:42] LABS: Calcium 9.4 mg/dL (8.4-10.2)
[2018-08-02] MEDS: LEVOFLOXACIN 500 MG TAB PO SCH (10:33)
[2018-08-02] MEDS: DILTIAZEM ORAL 30 MG TAB PO SCH (10:34)
[2018-08-02] MEDS: APIXABAN 5 MG TAB PO SCH (10:34)
[2018-08-02] MEDS: METOPROLOL TARTRATE 50 MG TAB PO SCH (10:34)
[2018-08-02] MEDS: FAMOTIDINE 20 MG TAB PO SCH (10:34)
[2018-08-02] MEDS: LORATADINE 10 MG TAB PO SCH (10:34)
[2018-08-02] MEDS: SPIRONOLACTONE 25 MG TAB PO SCH (10:34)
[2018-08-02] MEDS: ASPIRIN 81 MG PO SCH (10:34)
[2018-08-02] MEDS: FUROSEMIDE 10 MG/ML 4 ML VIAL IV SCH (10:36)
[2018-08-02 10:50] VITALS: TEMP 96.1
--- NOTE | 2018-08-02 11:11 | P.PN ---
Subjective Progress Note Date: 08/02/18 Principal diagnosis: Acute on chronic hypoxic and hypercapnic respiratory failure, multifactorial This is a pleasant 68-year-old female patient who follows with home visiting physicians. She has a history of morbid obesity with a BMI of 90, chronic hypoxic respiratory failure, chronic hypercapnic respiratory failure, diastolic congestive heart failure, borderline pulmonary hypertension, obstructive sleep apnea, obesity hypoventilation syndrome, chronic atrial fibrillation, hypertension, chronic kidney disease stage II, chronic lower extremity edema and venous stasis, chronic microcytic anemia, acid reflux, peptic ulcer disease , remote smoking, diverticulitis, previous history of ventilatory dependent respiratory failure, urinary tract infections, C. difficile colitis, MRSA in the sputum. She presented here to the emergency room yesterday as recommended by her visiting physician for concerns regarding fluid volume overload. Chest x -ray did reveal evidence of pulmonary vascular congestion and cardiomegaly. Limited echocardiogram revealed preserved left ventricular systolic function with ejection fraction 50-55%. She is seen today in consultation on the selective care unit. She is currently awake and alert in no acute distress. She is currently maintaining O2 saturations in the 90s on 5 L/m per nasal cannula. Utilizing the BiPAP during the evenings and throughout the day while napping. Afebrile. White count 11.7. Hemoglobin 12.3. Bicarb 39. Creatinine 0.88. Troponin negative. ProBNP 2850. Reevaluated today on 07/30/2018, patient remains on the selective care unit, presently on BiPAP, remains on diuretics, patient is a bit lethargic, ABG reflected hypercapnia and respiratory acidosis with significant metabolic compensation. ABG showed a CO2 of 96 pO2 of 69 pH of 7.30. Hence On BiPAP with IPAP of 14 and EPAP of 5. Basic metabolic profile showed bicarb level of 40 BUN is 65 creatinine is 1.07. Patient remains on diuretics, some improvement overall compared to how she felt when she came in. Reevaluated on 07/31/2018, remains on selective care unit, used BiPAP last night , presently on nasal cannula, remains on diuretics and bronchodilators, patient is alert oriented, denies any specific complaints. CBC is relatively normal. Electrolytes are relatively normal. BUN is 69 creatinine is 0.93. ABG yesterday showed a pO2 of 69 pCO2 of 96 and pH of 7.30. Chest x-ray from 2 days ago showed mostly cardiomegaly, and some component of congestive heart failure hence repeat chest x-ray will be done in a.m. to evaluate response to diuretics. On 08/01/2018 patient seen in follow-up. She is currently on BiPAP, she is wearing it intermittently through the day and at bedtime. Pulse ox on 5 L per nasal cannula is 91%, signs are stable, patient is afebrile. Lung sounds are clear, diminished. Repeat chest x-ray has been obtained, and shows improvement in persistent CHF and cardiomegaly with moderate central vascular congestion, patient is down 8.2 kg in to the recorded weights in the last 24 hours. From pulmonary perspective patient inserted for discharge home today on oral diuretics, she has a BiPAP unit at home on which she can continue. On 08/02/2018 patient seen in follow-up. Patient has been wearing her BiPAP support most of the time, yesterday she was noted to be more confused, and desaturating, and she was noted to be delirious. blood gases were done, and showed pO2 of 88, pCO2 of 83, and pH of 7.37, consistent with chronic hypercapnic respiratory failure, was done on FiO2 of 50%. This morning we place the patient on nasal cannula at 4 L, and the goal is to keep her O2 saturation between 87-91%. She does remove her oxygen cannula from time to time , and she desaturates to low 70s, becomes confused. She was instructed to wear the oxygen consistently. Otherwise vitals remain stable, she is afebrile. She continues on IV diuretics, and she is incontinent of large amount of urine. Fluid balance is difficult to estimate. Lung sounds are diminished. His labs have been reviewed, showed WBC 7.6, hemoglobin 12.9, sodium is 141, potassium is 4.0, chloride is 91, CO2 of 41, BUN of 66 and creatinine 0.99. Her BNP is trending down, down to 2716, from 3570. We will switch the patient's IV Lasix to oral Lasix. From pulmonary perspective patient could be discharged home is cleared by attending physician. Objective - Vital Signs Vital signs: Vital Signs Temp 96.1 F L 08/02/18 08:00 Pulse 104 H 08/02/18 08:00 Resp 20 08/02/18 07:13 BP 133/67 08/02/18 08:00 Pulse Ox 94 L 08/02/18 08:00 Intake & Output 08/01/18 08/02/18 08/02/18 18:59 06:59 18:59 Intake Total 512 1260 360 Balance 512 1260 360 Intake: IV 50 60 Invasive Line 2 50 Invasive Line 3 60 Oral 462 1200 360 Other: Voiding Method Incontinent Incontinent Incontinent # Voids 2 3 - Exam GENERAL EXAM: Revealed a 68-year-old female, morbidly obese, alert oriented, on nasal cannula. HEAD: Atraumatic, normocephalic.. EYES: PERRLA, EOMI, no icterus THROAT: Crowding of the posterior pharynx Mallampati class IV, NECK: Short and obese neck. No masses, no JVD. CHEST: Symmetrical chest expansion. No deformity noted. LUNGS: Diminished breath sounds CVS: Regular rhythm, Distant S1 and S2 normal with no murmur ABDOMEN: Obesity, normal bowel sounds, no guarding or rigidity. SPINE: No scoliosis or deformity SKIN:chronic venous stasis. CENTRAL NERVOUS SYSTEM: Alert oriented, 3, no gross focal neurologic deficits. EXTREMITIES: There is 2-3+ peripheral edema. No clubbing, no cyanosis. Peripheral pulses are intact. - Labs CBC & Chem 7: 08/02/18 01:01 08/02/18 07:22 Labs: Abnormal Lab Results - Last 24 Hours (Table) 08/01/18 08/01/18 08/01/18 Range/Units 11:45 16:49 19:50 MCH (25.0-35.0) pg MCHC (31.0-37.0) g/dL RDW (11.5-15.5) % Lymphocytes # (1.0-4.8) k/uL ABG pCO2 (35-45) mmHg ABG HCO3 (21-25) mmol/L ABG Total CO2 (19-24) mmol/L Chloride (98-107) mmol/L Carbon Dioxide (22-30) mmol/L BUN (7-17) mg/dL Glucose (74-99) mg/dL POC Glucose (mg/dL) 136 H 224 H 200 H (75-99) mg/dL 08/02/18 08/02/18 08/02/18 Range/Units 00:56 01:01 01:01 MCH 24.4 L (25.0-35.0) pg MCHC 29.2 L (31.0-37.0) g/dL RDW 18.9 H (11.5-15.5) % Lymphocytes # 0.5 L (1.0-4.8) k/uL ABG pCO2 83 H* (35-45) mmHg ABG HCO3 47 H* (21-25) mmol/L ABG Total CO2 50 H (19-24) mmol/L Chloride 90 L (98-107) mmol/L Carbon Dioxide 41 H* (22-30) mmol/L BUN 71 H (7-17) mg/dL Glucose 184 H (74-99) mg/dL POC Glucose (mg/dL) (75-99) mg/dL 08/02/18 08/02/18 Range/Units 06:49 07:22 MCH (25.0-35.0) pg MCHC (31.0-37.0) g/dL RDW (11.5-15.5) % Lymphocytes # (1.0-4.8) k/uL ABG pCO2 (35-45) mmHg ABG HCO3 (21-25) mmol/L ABG Total CO2 (19-24) mmol/L Chloride 91 L (98-107) mmol/L Carbon Dioxide 41 H* (22-30) mmol/L BUN 66 H (7-17) mg/dL Glucose 135 H (74-99) mg/dL POC Glucose (mg/dL) 133 H (75-99) mg/dL Assessment and Plan Plan: #1 Acute on chronic hypoxic and hypercapnic respiratory failure, multifactorial , due to a component of diastolic congestive heart failure in a obesity/ hypoventilation syndrome patient, chronic obstructive lung disease. #2 Chronic diastolic congestive heart failure #3 Obstructive sleep apnea and obesity hypoventilation syndrome #4 Severe restrictive lung disease secondary to morbid obesity #5 morbid obesity with BMI of 90.8 #6 Chronic atrial fibrillation with a controlled ventricular rate. Rate controlled. On Cardizem and metoprolol. On anticoagulation at home in the form of Eliquis #7 benign essential hypertension #8 Chronic kidney disease stage II #9 Chronic bilateral lower activity edema and chronic venous stasis #10 GERD and history of peptic ulcer disease #11 Microcytic anemia #12 Previous history of smoking #13 Poor overall functional performance based on the above-mentioned multiple comorbidities. Plan: Continue BiPAP support at bedtime and as needed during the day. She can wear nasal cannula for a Venturi mask, and FiO2 can be titrated to achieve O2 sat between 87-91%. We'll switch the IV Lasix to oral diuretics. Clinically patient is stable, could be considered for discharge home. I performed a history & physical examination of the patient and discussed their management with my nurse practitioner, Maru Meyers. I reviewed the nurse practitioner's note and agree with the documented findings and plan of care. Lung sounds are diminished. The findings and the impression was discussed with the patient. I attest to the documentation by the nurse practitioner. Time with Patient: Less than 30
[2018-08-02 11:25] LABS: Glucose,Whole Blood 181 mg/dL (75-99)
--- NOTE | 2018-08-02 12:46 | P.PN ---
Subjective Progress Note Date: 08/02/18 This is a pleasant 68-year-old female patient follows with Dr. Child in the office. Has history of morbid obesity, chronic diastolic congestive heart failure, chronic atrial fibrillation, COPD and hypertension. She presented to the hospital with complaints of progressively worsening shortness of breath. She was admitted with diagnosis of CHF and COPD exacerbation. Chest x-ray on admission showed mild to moderate central venous congestion with subsequent chest x-ray showing worsening CHF. NT proBNP came back elevated at 2852 was initially started on Lasix 40 mg IV push every 8 hours as well as IV Solu-Medrol. EKG showed atrial fibrillation blood pressure remains stable. Heart rates remain fairly well controlled today. She is currently on Lasix 40 mg every 12 hours and Solu-Medrol 60 mg every 6 hours. Laboratory values today show 66 and a creatinine of 0.99 with a NT proBNP of 2760. Patient seems to be less responsive today, blood gases done in the middle the night to show improvement. She continues to use BiPAP on and off. On room air she desaturates into the 70s. She will be on 4 L nasal cannula to maintain saturation between 87 and 91% per pulmonary. Objective - Vital Signs Vital signs: Vital Signs Temp 96.1 F L 08/02/18 08:00 Pulse 96 08/02/18 11:51 Resp 20 08/02/18 11:36 BP 133/67 08/02/18 08:00 Pulse Ox 94 L 08/02/18 08:00 Intake & Output 08/01/18 08/02/18 08/02/18 18:59 06:59 18:59 Intake Total 512 1260 360 Output Total 400 Balance 512 1260 -40 Weight 201.4 kg Intake: IV 50 60 Invasive Line 2 50 Invasive Line 3 60 Oral 462 1200 360 Output: Urine 400 Other: Voiding Method Incontinent Incontinent Incontinent # Voids 2 3 - Exam PHYSICAL EXAMINATION: HEENT: Head is atraumatic, normocephalic. Pupils equal, round. Neck is supple. Difficult to assess for elevated jugular venous pressure. HEART EXAMINATION: Heart sounds irregularly irregular, S1 and S2 normal. No murmur or gallop heard. CHEST EXAMINATION: Lungs diminished air entry bilaterally. No chest wall tenderness is noted on palpation or with deep breathing. ABDOMEN: Soft, obese, nontender. Bowel sounds are heard. No organomegaly noted. EXTREMITIES: Errol wraps noted to bilateral lower extremities. NEUROLOGIC patient is awake, drowsy and oriented x2. . - Labs CBC & Chem 7: 08/02/18 01:01 08/02/18 07:22 Labs: Abnormal Lab Results - Last 24 Hours (Table) 08/01/18 08/01/18 08/02/18 Range/Units 16:49 19:50 00:56 MCH (25.0-35.0) pg MCHC (31.0-37.0) g/dL RDW (11.5-15.5) % Lymphocytes # (1.0-4.8) k/uL ABG pCO2 83 H* (35-45) mmHg ABG HCO3 47 H* (21-25) mmol/L ABG Total CO2 50 H (19-24) mmol/L Chloride (98-107) mmol/L Carbon Dioxide (22-30) mmol/L BUN (7-17) mg/dL Glucose (74-99) mg/dL POC Glucose (mg/dL) 224 H 200 H (75-99) mg/dL 08/02/18 08/02/18 08/02/18 Range/Units 01:01 01:01 06:49 MCH 24.4 L (25.0-35.0) pg MCHC 29.2 L (31.0-37.0) g/dL RDW 18.9 H (11.5-15.5) % Lymphocytes # 0.5 L (1.0-4.8) k/uL ABG pCO2 (35-45) mmHg ABG HCO3 (21-25) mmol/L ABG Total CO2 (19-24) mmol/L Chloride 90 L (98-107) mmol/L Carbon Dioxide 41 H* (22-30) mmol/L BUN 71 H (7-17) mg/dL Glucose 184 H (74-99) mg/dL POC Glucose (mg/dL) 133 H (75-99) mg/dL 08/02/18 08/02/18 Range/Units 07:22 11:24 MCH (25.0-35.0) pg MCHC (31.0-37.0) g/dL RDW (11.5-15.5) % Lymphocytes # (1.0-4.8) k/uL ABG pCO2 (35-45) mmHg ABG HCO3 (21-25) mmol/L ABG Total CO2 (19-24) mmol/L Chloride 91 L (98-107) mmol/L Carbon Dioxide 41 H* (22-30) mmol/L BUN 66 H (7-17) mg/dL Glucose 135 H (74-99) mg/dL POC Glucose (mg/dL) 181 H (75-99) mg/dL Assessment and Plan Assessment: #1 acute on chronic diastolic congestive heart failure #2 chronic atrial fibrillation #3 COPD exacerbation #4 morbid obesity #5 acute and chronic renal failure #6 chronic hypoxic, hypercapnic respiratory failure #7 multiple comorbid conditions Plan: From cardiology perspective, agree with switching to by mouth Lasix. Continue to monitor daily weights, intake and output as well as renal function and electrolytes. Continue anticoagulation. We'll continue to follow patient provide further recommendations accordingly. [employer] note has been reviewed, I agree with a documented findings and plan of care. Patient was seen and examined.
[2018-08-02 15:01] VITALS: BP 141/75
[2018-08-02] MEDS ORDERED: FUROSEMIDE 40 MG TAB PO SCH (16:00)
[2018-08-02 16:30] LABS: Glucose,Whole Blood 214 mg/dL (75-99)
[2018-08-02 18:13] VITALS: PULSE 69
--- NOTE | 2018-08-02 20:54 | P.DS ---
Providers Date of admission: 07/28/18 16:43 Attending physician: Harmeet Connors Consults: 07/28/18 16:40 Consult Physician Routine Consulting Provider: Phong Bazan Consult Reason/Comments: COPD, CHF Do you want consulting provider notified?: Yes 07/29/18 01:56 Consult Physician Routine Consulting Provider: Liz Anderson Consult Reason/Comments: chf Do you want consulting provider notified?: Yes Primary care physician: Екатерина Patel MD Hospital Course: This is a pleasant 68 years old female who presents with dyspnea on exertion and found to have acute diastolic congestive heart failure on the top of her obesity hypoventilation syndrome, with possible elements of acute COPD exacerbation. Came to see the patient this morning she was a little bit sleepy and lethargic, she wakes up to verbal and tactile stimuli however she goes back to sleep quickly. Patient was on BiPAP with setting of I/D E 12/5, ABG showed patient retaining CO2, and pulmonary team evaluated the patient and increased her BiPAP setting to I/D E 14/5 minute patient is more awake. Patient continued to be on diuretics and steroid therapy as well as antibiotic. pt showed interval improvement and she returned to her baseline on the day of discharge , pt has been evaluated by both the cardiology and pulmonary team, and they cleared her for discharge, pt is switched to oral antibiotic for 3 more days as per pulmonary recommendation , and oral lasix 40 mg bid ( was 80 mg bid at home prior to admission). pt is discharged on tapered dose of steroid which usually she gets each time she is hospitalized. pt has bipap machine at home , pt has chronic h/o of sleepiness in the morning which could be related to her co2 retention , but she wakes up , pt has found in deep sleep 3 days ago and her bipap parameters were adjusted by wrapping checker , she showed interval improvement and was more awake. I had long discussion with pt and daughter at bed side, and all their questions are answered to their satisfaction , pt has visiting physician who can see her in one week as pt pt and they going to call her. problems and management plan was discussed with the pt and she verbalized understanding and acceptance. pt is found stable and can be discharged home in guarded prognosis but she needs follow up as outpt Physical exam GENERAL: The patient is alert and oriented x3, not in any acute distress. she is morbidly obese , she is bed-ridden HEENT: Pupils are round and equally reacting to light. EOMI. No scleral icterus. No conjunctival pallor. Normocephalic, atraumatic. No pharyngeal erythema. No thyromegaly. CARDIOVASCULAR: S1 and S2 present. No murmurs, rubs, or gallops. PULMONARY: Chest is clear to auscultation, no wheezing or crackles. ABDOMEN: Soft, nontender, nondistended, normoactive bowel sounds. No palpable organomegaly. EXTREMITIES: No cyanosis, clubbing, or pedal edema. NEUROLOGICAL: Gross neurological examination did not reveal any focal deficits. pt is not walking at baseline. SKIN: No rashes. time spent more than 35 min Patient Condition at Discharge: Stable Plan - Discharge Summary Discharge Rx Participant: No New Discharge Prescriptions: New Furosemide [Lasix] 40 mg PO BID@0900,1600 #60 tab Levofloxacin [Levaquin] 250 mg PO DAILY 3 Days #3 tab Metoprolol Tartrate [Lopressor] 100 mg PO BID 30 Days #120 tab predniSONE 10 mg PO DIRECTED #32 tab Continue Multivits, W-Ca,Fe,Oth Min [Therapeutic M] 1 tab PO DAILY Apixaban [Eliquis] 5 mg PO BID #60 tab Aspirin EC [Ecotrin Low Dose] 81 mg PO DAILY #30 tablet. Budesonide-Formot 160-4.5 Mcg [Symbicort 160-4.5 Mcg Inhaler] 2 puff INHALATION RT-BID Diltiazem HCl 90 mg PO BID Fexofenadine HCl [Sarita Allergy] 180 mg PO DAILY Spironolactone [Aldactone] 25 mg PO DAILY Ipratropium-Albuterol Nebulize [Duoneb 0.5 mg-3 mg/3 ml Soln] 3 ml INHALATION RT-QID #120 ampul.neb Pantoprazole [Protonix] 40 mg PO AC-BRKFST #30 tablet. Acetaminophen Tab [Tylenol] 500 mg PO Q6HR PRN tab PRN Reason: Fever And/ Or Pain Discontinued Metoprolol Tartrate [Lopressor] 75 mg PO BID Discharge Medication List Multivits, W-Ca,Fe,Oth Min [Therapeutic M] 1 tab PO DAILY 03/25/18 [History] Apixaban [Eliquis] 5 mg PO BID #60 tab 03/31/18 [Rx] Aspirin EC [Ecotrin Low Dose] 81 mg PO DAILY #30 tablet. 03/31/18 [Rx] Budesonide-Formot 160-4.5 Mcg [Symbicort 160-4.5 Mcg Inhaler] 2 puff INHALATION RT-BID 05/31/18 [History] Diltiazem HCl 90 mg PO BID 05/31/18 [History] Fexofenadine HCl [Sarita Allergy] 180 mg PO DAILY 05/31/18 [History] Spironolactone [Aldactone] 25 mg PO DAILY 05/31/18 [History] Ipratropium-Albuterol Nebulize [Duoneb 0.5 mg-3 mg/3 ml Soln] 3 ml INHALATION RT -QID #120 ampul.neb 06/03/18 [Rx] Pantoprazole [Protonix] 40 mg PO AC-BRKFST #30 tablet. 06/03/18 [Rx] Acetaminophen Tab [Tylenol] 500 mg PO Q6HR PRN tab 07/04/18 [Rx] Furosemide [Lasix] 40 mg PO BID@0900,1600 #60 tab 08/02/18 [Rx] Levofloxacin [Levaquin] 250 mg PO DAILY 3 Days #3 tab 08/02/18 [Rx] Metoprolol Tartrate [Lopressor] 100 mg PO BID 30 Days #120 tab 08/02/18 [Rx] predniSONE 10 mg PO DIRECTED #32 tab 08/02/18 [Rx] Follow up Appointment(s)/Referral(s): Mike Child MD [STAFF PHYSICIAN] - 1 Week (please call to schedule appointment. office is closed) Kirit Bartlett DO [Doctor of Osteopathic Medicine] - 1 Week (please call to schedule appointment. office is closed) Chele Carrasco MD [REFERRING] - 1-2 days (your visiting doctor please call to schedule appointment) Patient Instructions/Handouts: Heart Failure (DC) Activity/Diet/Wound Care/Special Instructions: residential home health [phone] cardiac diet use BiPAP machine at night during sleep Discharge Disposition: HOME WITH HOME HEALTH SERVICES
[2018-08-03] MEDS ORDERED: LEVOFLOXACIN 250 MG TAB PO SCH (09:00)
[2018-08-03] MEDS ORDERED: FAMOTIDINE 20 MG TAB PO SCH (09:00)
== END 2018-08-02 17:40 | disposition home health service (06) | DRG 291 ==
LOC: EC 12:47 → 3SUR 16:43 → 6SEL 23:56 → 3SCARD 07-31 10:39 → 6SEL 07-31 10:39 → 3SCARD 08-01 16:06
PROVIDERS: ADMIT Internal Medicine; ATTEND Internal Medicine
DX: I13.0 Hypertensive heart and chronic kidney disease with heart failure and stage 1 through stage 4 chronic kidney disease, or unspecified chronic kidney disease (principal); I50.33 Acute on chronic diastolic (congestive) heart failure; J96.21 Acute and chronic respiratory failure with hypoxia; J96.22 Acute and chronic respiratory failure with hypercapnia; E66.2 Morbid (severe) obesity with alveolar hypoventilation; E87.2 Acidosis; J44.1 Chronic obstructive pulmonary disease with (acute) exacerbation; Z68.44 Body mass index [BMI] 60.0-69.9, adult; D50.9 Iron deficiency anemia, unspecified; F40.240 Claustrophobia; H91.90 Unspecified hearing loss, unspecified ear; I27.20 Pulmonary hypertension, unspecified; I48.2 Chronic atrial fibrillation; I87.8 Other specified disorders of veins; J98.4 Other disorders of lung; K21.9 Gastro-esophageal reflux disease without esophagitis; N18.2 Chronic kidney disease, stage 2 (mild); R32 Unspecified urinary incontinence; K57.90 Diverticulosis of intestine, part unspecified, without perforation or abscess without bleeding; G89.29 Other chronic pain; Z79.01 Long term (current) use of anticoagulants; Z79.51 Long term (current) use of inhaled steroids; Z79.52 Long term (current) use of systemic steroids; Z79.82 Long term (current) use of aspirin; Z79.899 Other long term (current) drug therapy; Z86.14 Personal history of Methicillin resistant Staphylococcus aureus infection; Z99.81 Dependence on supplemental oxygen; Z87.891 Personal history of nicotine dependence; Z87.440 Personal history of urinary (tract) infections; Z87.11 Personal history of peptic ulcer disease; Z87.01 Personal history of pneumonia (recurrent); Z83.3 Family history of diabetes mellitus; Z82.49 Family history of ischemic heart disease and other diseases of the circulatory system; Z84.1 Family history of disorders of kidney and ureter; Z82.61 Family history of arthritis; Z83.518 Family history of other specified eye disorder
CPT/HCPCS: 36415; 36600; 71045; 71046; 80048; 80053; 82550; 82553; 82805; 83036; 83735; 83880; 84484; 85025; 85610; 85730; 93005; 93308; 94640; 94660; 96374; 99285

== ENCOUNTER 2018-09-15 13:10 | Emergency (ER) | payer MEDICARE, MEDICAID ==
--- NOTE | 2018-09-15 13:44 | ED ---
General Adult HPI - General Stated complaint: Abcess in rt leg - History of Present Illness Initial comments: Dictation was produced using [employer] dictation software. please excuse any grammatical, word or spelling errors. Chief Complaint: 60-year-old female with multiple comorbidities presents with right leg lesion. History of Present Illness: Patient is a 68-year-old female multiple comorbidities presents with right leg lesion. Patient is chronically debilitated. She does not ambulate. Over the past several days she noted that she had a blister over her right lower extremity. She states that this blister is much larger than her usual. She states she gets a lot of fluid blisters to the right lower extremity. The small blisters alcohol last recently causing a 1 large fluid blister. Patient denies any trauma or abrasion to the right lower extremity. No other symptoms. Patient otherwise appears to be baseline. The ROS documented in this emergency department record has been reviewed and confirmed by me. Those systems with pertinent positive or negative responses have been documented in the HPI. All other systems are other negative and/or noncontributory. - Related Data Home Medications Medication Instructions Recorded Confirmed Multivits,Th W-Ca,Fe,Oth Min 1 tab PO DAILY 03/25/18 09/15/18 [Therapeutic M] Budesonide-Formot 160-4.5 Mcg 2 puff INHALATION RT-BID 05/31/18 09/15/18 [Symbicort 160-4.5 Mcg Inhaler] Diltiazem HCl 90 mg PO BID 05/31/18 09/15/18 Fexofenadine HCl [Sarita Allergy] 180 mg PO DAILY PRN 05/31/18 09/15/18 Spironolactone [Aldactone] 25 mg PO DAILY 05/31/18 09/15/18 Furosemide [Lasix] 40 mg PO DAILY@1600 08/25/18 09/15/18 Furosemide [Lasix] 80 mg PO QAM 08/25/18 09/15/18 Lansoprazole [Prevacid] 15 mg PO DAILY PRN 08/25/18 09/15/18 Metoprolol Tartrate [Lopressor] 100 mg PO BID 08/25/18 09/15/18 Previous Rx's Medication Instructions Recorded Apixaban [Eliquis] 5 mg PO BID #60 tab 03/31/18 Aspirin EC [Ecotrin Low Dose] 81 mg PO DAILY #30 tablet. 03/31/18 Acetaminophen Tab [Tylenol] 500 mg PO Q6HR PRN tab 07/04/18 Cephalexin [Keflex] 500 mg PO Q6HR 5 Days #20 cap 09/15/18 Allergies Allergy/AdvReac Type Severity Reaction Status Date / Time No Known Allergies Allergy Verified 09/15/18 13:50 Review of Systems ROS Statement: Those systems with pertinent positive or pertinent negative responses have been documented in the HPI. ROS Other: All systems not noted in ROS Statement are negative. Past Medical History Past Medical History: Atrial Fibrillation, Asthma, Heart Failure, COPD, GI Bleed , Hypertension, Pneumonia Additional Past Medical History / Comment(s): Morbid obesity, chronic hypoxic respiratory failure, chronic hypercapnic respiratory failure, CHF with diastolic dysfunction, borderline pulmonary hypertension, obstructive sleep apnea, breast hypoventilation syndrome, chronic atrial fibrillation, hypertension, chronic stage II kidney disease, chronic lower extremity edema and venous stasis, chronic microcytic anemia, acid reflux, history of peptic ulcer disease, history of smoking, history of diverticulosis and previous history of diverticulitis, history of chronic lower extremity venous stasis and ulceration, previous history of ventilator dependent respiratory failure requiring intubation back in general 2018, previous history of E. coli urinary tract infection, previous history of C. 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 Smoking Status: Former smoker - Past Family History Father Family Medical History: Eye Disorder, Osteoarthritis (OA) Additional Family Medical History / Comment(s): at age 92 from old age, had macular degeneration Mother Family Medical History: Coronary Artery Disease (CAD), Diabetes Mellitus, Hypertension, Renal Disease Additional Family Medical History / Comment(s): cabg, dialysis General Exam - General Exam Comments Initial Comments: PHYSICAL EXAM: General Impression: Alert and oriented x3, not in acute distress HEENT: Normocephalic atraumatic, extra-ocular movements intact, pupils equal and reactive to light bilaterally, mucous membranes moist. Cardiovascular: Heart regular rate and rhythm, S1&S2 audible, no murmurs, rubs or gallops Chest: Lungs clear to auscultation bilaterally, no rhonchi, no wheeze, no rales Abdomen: Bowel sounds present, abdomen soft, non-tender, non-distended, no organomegaly Musculoskeletal: Pulses present and equal in all extremities, no peripheral edema Motor: Power 5/5 bilaterally, no focal deficits noted Neurological: CN II-XII grossly intact, no focal motor or sensory deficits noted Skin: Scaly bilateral tibial skin, large non-tense bulla to the entire right anterior tibia. No warmth. Slightly erythematous. Nonpainful Psych: Normal affect and mood Course Vital Signs 09/15/18 13:28 Temperature 97.1 F L Pulse Rate 73 Respiratory 22 Rate Blood Pressure 94/55 O2 Sat by Pulse 94 L Oximetry Medical Decision Making - Medical Decision Making ED course: 68-year-old female with non-tense bulla to the right lower extremity. Nikolsky sign is negative. Patient has stable vital signs. She is afebrile. Denies any recent changes in her medications. Wound is consistent with cellulitis. She has multiple comorbidities. She states that she did not have any changes in her medications recently. Patient has had these bulla to her right lower extremity in the past however not this large. Negative Nikolsky sign. Vital signs upon arrival are within acceptable limits. Screening labs were obtained. CBC, metabolic panel. Be at baseline for her. Patient feels well. Daughter is at bedside states to provide more history. She does have a home health nurse second scop on Wednesday. They do have a home care doctor that visits patient presents with once every 3 weeks. X-ray obtained showing no acute processes. Clinical presentation consistent with cellulitis. Patient be given by mouth antibiotics. They state that they can get home health care nurse to perform wound check as early as Wednesday. Patient to be discharge. They're told to return to the emergency Department with any worsening symptoms. Wound was dressed with Vaseline gauze and Kerlix roll. - Lab Data Result diagrams: 09/15/18 14:30 09/15/18 14:30 Lab Results 09/15/18 09/15/18 Range/Units 14:30 14:30 WBC 10.3 (3.8-10.6) k/uL RBC 4.78 (3.80-5.40) m/uL Hgb 12.7 (11.4-16.0) gm/dL Hct 42.3 (34.0-46.0) % MCV 88.5 (80.0-100.0) fL MCH 26.6 (25.0-35.0) pg MCHC 30.0 L (31.0-37.0) g/dL RDW 23.5 H (11.5-15.5) % Plt Count 153 (150-450) k/uL Neutrophils % 82 % Lymphocytes % 11 % Monocytes % 4 % Eosinophils % 1 % Basophils % 0 % Neutrophils # 8.4 H (1.3-7.7) k/uL Lymphocytes # 1.2 (1.0-4.8) k/uL Monocytes # 0.4 (0-1.0) k/uL Eosinophils # 0.1 (0-0.7) k/uL Basophils # 0.0 (0-0.2) k/uL Hypochromasia Marked Poikilocytosis Moderate Anisocytosis Moderate Microcytosis Slight Macrocytosis Slight Sodium 138 (137-145) mmol/L Potassium 4.0 (3.5-5.1) mmol/L Chloride 91 L (98-107) mmol/L Carbon Dioxide 40 H (22-30) mmol/L Anion Gap 7 mmol/L BUN 59 H (7-17) mg/dL Creatinine 0.95 (0.52-1.04) mg/dL Est GFR (CKD-EPI)AfAm 72 (>60 ml/min/1.73 sqM) Est GFR (CKD-EPI)NonAf 62 (>60 ml/min/1.73 sqM) Glucose 145 H (74-99) mg/dL Calcium 9.9 (8.4-10.2) mg/dL Disposition Clinical Impression: Cellulitis Disposition: HOME SELF-CARE Condition: Good Instructions: Cellulitis (ED) Prescriptions: Cephalexin [Keflex] 500 mg PO Q6HR 5 Days #20 cap Is patient prescribed a controlled substance at d/c from ED?: No Referrals: Екатерина Patel MD [Primary Care Provider] - 1-2 days Time of Disposition: 15:50
--- NOTE | 2018-09-15 14:23 | XR ---
EXAMINATION TYPE: XR tibia fibula RT DATE OF EXAM: 09/15/2018 CLINICAL HISTORY: Right lower extremity abscess. TECHNIQUE: Two views of the right leg are obtained. COMPARISON: None. FINDINGS: There is no acute fracture or dislocation seen in the right tibia or fibula. Extensive tri compartmental arthropathy is seen within the knee, partially visualized. The overlying soft tissues demonstrate diffuse subcutaneous emphysema. Diffuse osseous demineralization is also seen with athero sclerosis. IMPRESSION: There is no acute fracture or dislocation seen in the right tibia or fibula. No retained foreign body. Diffuse right lower extremity cutaneous edema suggestive of cellulitis given the patie nt's history of abscess. No sequela of osteomyelitis.
[2018-09-15 14:47] LABS: Anisocytosis Moderate; Basophils % (A) 0 %; Eosinophils # (A) 0.1 k/uL (0-0.7); Eosinophils % (A) 1 %; HCT 42.3 % (34.0-46.0); HGB 12.7 gm/dL (11.4-16.0); Hypochromasia Marked; Lymphocytes # (A) 1.2 k/uL (1.0-4.8); Lymphocytes % (A) 11 %; MCH 26.6 pg (25.0-35.0); MCV 88.5 fL (80.0-100.0); Macrocytosis Slight; Mean Platelet Volume 8.3; Microcytosis Slight; Monocytes # (A) 0.4 k/uL (0-1.0); Monocytes % (A) 4 %; Neutrophils # (A) 8.4 k/uL (1.3-7.7); Neutrophils % (A) 82 %; Platelet Count 153 k/uL (150-450); Poikilocytosis Moderate; RBC 4.78 m/uL (3.80-5.40); RDW 23.5 % (11.5-15.5); WBC 10.3 k/uL (3.8-10.6)
[2018-09-15 14:59] LABS: Calcium 9.9 mg/dL (8.4-10.2)
[2018-09-15 16:54] VITALS: BP 112/63; PULSE 60; RESP 20; TEMP 98.6
== END 2018-09-15 18:02 | disposition home or self-care (01) ==
LOC: EC 13:10
DX: L03.115 Cellulitis of right lower limb (principal); R53.81 Other malaise; J44.9 Chronic obstructive pulmonary disease, unspecified; I48.2 Chronic atrial fibrillation; I13.0 Hypertensive heart and chronic kidney disease with heart failure and stage 1 through stage 4 chronic kidney disease, or unspecified chronic kidney disease; I50.9 Heart failure, unspecified; N18.2 Chronic kidney disease, stage 2 (mild); J96.12 Chronic respiratory failure with hypercapnia; J96.11 Chronic respiratory failure with hypoxia; Z87.891 Personal history of nicotine dependence; Z79.51 Long term (current) use of inhaled steroids; Z79.899 Other long term (current) drug therapy; Z86.14 Personal history of Methicillin resistant Staphylococcus aureus infection; Z87.19 Personal history of other diseases of the digestive system
CPT/HCPCS: 36415; 80048; 85025; 99283

== ENCOUNTER 2018-09-18 15:55 | Inpatient (IN) | payer MEDICARE, MEDICAID ==
[2018-09-18] MEDS ORDERED: DEXAMETHASONE SOD PHOSPHATE 10 MG/ML 1 ML VIAL IV STA (16:08)
[2018-09-18] MEDS ORDERED: AZITHROMYCIN 500 MG in SODIUM CHLORIDE 0.9% 250 ML IVPB STA (16:20)
[2018-09-18] MEDS ORDERED: ALBUTEROL NEBULIZED 2.5 MG/3 ML INHALATION STA (16:21)
[2018-09-18] MEDS ORDERED: IPRATROPIUM 0.5 MG/2.5 ML NEBU INHALATION STA (16:22)
--- NOTE | 2018-09-18 16:29 | ED ---
General Adult HPI - General Chief complaint: Shortness of Breath Stated complaint: LIZZIE Source: patient, EMS Mode of arrival: EMS Limitations: physical limitation - History of Present Illness Initial comments: Dictation was produced using [employer] dictation software. please excuse any grammatical, word or spelling errors. Chief Complaint: 60-year-old female with past medical history of pickwickian syndrome, COPD, CHF presents with acute respiratory distress. History of Present Illness: 6-year-old female presents with acute respiratory distress. Patient has obesity, hypoventilation syndrome, CHF, COPD. Patient is recently seen here in the emergency department by myself for right lower extremity rash. Daughter she was seen early this morning. She was significantly short of breath. Daughter provided mother with breathing treatment. She states she was so short of breath. BiPAP was applied of patient 's symptoms still persisted. EMS was called and she was transferred to emergency department. EMS applied noninvasive ventilation. Patient states she felt fine yesterday. 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 The ROS documented in this emergency department record has been reviewed and confirmed by me. Those systems with pertinent positive or negative responses have been documented in the HPI. All other systems are other negative and/or noncontributory. - Related Data Home Medications Medication Instructions Recorded Confirmed Budesonide-Formot 160-4.5 Mcg 2 puff INHALATION RT-BID 05/31/18 09/18/18 [Symbicort 160-4.5 Mcg Inhaler] Diltiazem HCl 90 mg PO BID 05/31/18 09/18/18 Spironolactone [Aldactone] 25 mg PO DAILY 05/31/18 09/18/18 Furosemide [Lasix] 80 mg PO QAM 08/25/18 09/18/18 Metoprolol Tartrate [Lopressor] 100 mg PO BID 08/25/18 09/18/18 Furosemide [Lasix] 40 mg PO HS 09/18/18 09/18/18 Previous Rx's Medication Instructions Recorded Apixaban [Eliquis] 5 mg PO BID #60 tab 03/31/18 Cephalexin [Keflex] 500 mg PO Q6HR 5 Days #20 cap 09/15/18 Allergies Allergy/AdvReac Type Severity Reaction Status Date / Time No Known Allergies Allergy Verified 09/15/18 13:50 Review of Systems ROS Statement: Those systems with pertinent positive or pertinent negative responses have been documented in the HPI. ROS Other: All systems not noted in ROS Statement are negative. Past Medical History Past Medical History: Atrial Fibrillation, Asthma, Heart Failure, COPD, GI Bleed , Hypertension, Pneumonia Additional Past Medical History / Comment(s): Morbid obesity, chronic hypoxic respiratory failure, chronic hypercapnic respiratory failure, CHF with diastolic dysfunction, borderline pulmonary hypertension, obstructive sleep apnea, breast hypoventilation syndrome, chronic atrial fibrillation, hypertension, chronic stage II kidney disease, chronic lower extremity edema and venous stasis, chronic microcytic anemia, acid reflux, history of peptic ulcer disease, history of smoking, history of diverticulosis and previous history of diverticulitis, history of chronic lower extremity venous stasis and ulceration, previous history of ventilator dependent respiratory failure requiring intubation back in general 2018, previous history of E. coli urinary tract infection, previous history of C. 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 Past Psychological History: No Psychological Hx Reported Smoking Status: Former smoker Past Alcohol Use History: None Reported Past Drug Use History: None Reported - Past Family History Father Family Medical History: Eye Disorder, Osteoarthritis (OA) Additional Family Medical History / Comment(s): at age 92 from old age, had macular degeneration Mother Family Medical History: Coronary Artery Disease (CAD), Diabetes Mellitus, Hypertension, Renal Disease Additional Family Medical History / Comment(s): cabg, dialysis General Exam - General Exam Comments Initial Comments: PHYSICAL EXAM: General Impression: Alert and oriented x3, acute respiratory distress, unable to complete sentences HEENT: Normocephalic atraumatic, extra-ocular movements intact, pupils equal and reactive to light bilaterally, dry mucous membranes Cardiovascular: Tachycardic Chest: Bilateral lung wheezes, diminished breath sounds on the right Abdomen: Bowel sounds present, abdomen soft, non-tender, non-distended, no organomegaly Musculoskeletal: Pulses present and equal in all extremities, no peripheral edema Motor: Power 5/5 bilaterally, no focal deficits noted Neurological: CN II-XII grossly intact, no focal motor or sensory deficits noted Skin: Bandaging to the right lower extremity Limitations: physical limitation Course Vital Signs 09/18/18 09/18/18 09/18/18 16:00 16:14 16:39 Temperature 98.6 F Pulse Rate 104 H 112 H 111 H Respiratory 40 H 35 H Rate Blood Pressure 132/60 133/96 O2 Sat by Pulse 69 L 96 Oximetry 09/18/18 09/18/18 09/18/18 16:45 16:52 17:01 Temperature Pulse Rate 114 H 101 H Respiratory 32 H Rate Blood Pressure 117/77 O2 Sat by Pulse 95 98 Oximetry 09/18/18 09/18/18 09/18/18 17:10 17:21 17:30 Temperature Pulse Rate 92 110 H 117 H Respiratory 24 32 H Rate Blood Pressure 117/77 114/58 O2 Sat by Pulse 97 92 L Oximetry 09/18/18 17:40 Temperature Pulse Rate 108 H Respiratory 19 Rate Blood Pressure 102/48 O2 Sat by Pulse 92 L Oximetry Medical Decision Making - Medical Decision Making ED course: Patient is a 68-year-old female with multiple is with her issues. Patient arrived in unstable condition. She is immediately placed on BiPAP and given supplemental oxygen with improvement of saturation. She is vital signs upon arrival shows respirations of 40, oxygen of 69, respiratory signs normal limits. Patient was initially given steroids and breathing treatment.Bedside ultrasound showed curly B-lines however patient's blood pressure was 132/60. Patient given 80 mg of IV Lasix. Laboratory evaluation obtained. Mild leukocytosis of 11.1. Rest of CBC unremarkable. Coag panel unremarkable. Metabolic panel appears to be at or around patient's baseline. Chest x-ray shows congestive heart failure unchanged with moderate cardiomegaly. Patient observed observed in emergency department for several hours and maintained on BiPAP. She is well-known to the hospital for multiple admissions for similar complaints. Dr. Shepherd will be consult it for management of right lower extremity wound. EKG Interpretation: A 12 lead EKG was obtained. It was interpreted by myself and attending physician. There is a P wave before every QRS complex. Rate is 99. Rhythm is 99 , H fibrillation, QS 84, QTC 405. QT is not prolonged. No ST segment depression or elevation. . Overall, this EKG is unremarkable - Lab Data Result diagrams: 09/18/18 16:45 09/18/18 16:45 Lab Results 09/18/18 09/18/18 09/18/18 Range/Units 16:45 16:45 16:45 WBC 11.1 H (3.8-10.6) k/uL RBC 4.75 (3.80-5.40) m/uL Hgb 12.7 (11.4-16.0) gm/dL Hct 41.8 (34.0-46.0) % MCV 88.0 (80.0-100.0) fL MCH 26.8 (25.0-35.0) pg MCHC 30.5 L (31.0-37.0) g/dL RDW 22.5 H (11.5-15.5) % Plt Count 188 (150-450) k/uL Neutrophils % 83 % Lymphocytes % 11 % Monocytes % 4 % Eosinophils % 1 % Basophils % 0 % Neutrophils # 9.2 H (1.3-7.7) k/uL Lymphocytes # 1.2 (1.0-4.8) k/uL Monocytes # 0.5 (0-1.0) k/uL Eosinophils # 0.1 (0-0.7) k/uL Basophils # 0.0 (0-0.2) k/uL Hypochromasia Marked Poikilocytosis Moderate Anisocytosis Moderate Microcytosis Slight PT (9.0-12.0) sec INR (<1.2) APTT (22.0-30.0) sec Sodium 138 (137-145) mmol/L Potassium 4.7 (3.5-5.1) mmol/L Chloride 89 L (98-107) mmol/L Carbon Dioxide 39 H (22-30) mmol/L Anion Gap 10 mmol/L BUN 71 H (7-17) mg/dL Creatinine 1.25 H (0.52-1.04) mg/dL Est GFR (CKD-EPI)AfAm 51 (>60 ml/min/1.73 sqM) Est GFR (CKD-EPI)NonAf 44 (>60 ml/min/1.73 sqM) Glucose 160 H (74-99) mg/dL Calcium 10.6 H (8.4-10.2) mg/dL Magnesium 2.4 H (1.6-2.3) mg/dL Total Bilirubin 0.3 (0.2-1.3) mg/dL AST 23 (14-36) U/L ALT 31 (9-52) U/L Alkaline Phosphatase 96 (38-126) U/L Total Creatine Kinase <20 L (30-135) U/L CK-MB (CK-2) 1.2 (0.0-2.4) ng/mL CK-MB (CK-2) Rel Index Troponin I 0.022 (0.000-0.034) ng/mL NT-Pro-B Natriuret Pep pg/mL Total Protein 6.1 L (6.3-8.2) g/dL Albumin 3.3 L (3.5-5.0) g/dL 09/18/18 09/18/18 Range/Units 16:45 16:45 WBC (3.8-10.6) k/uL RBC (3.80-5.40) m/uL Hgb (11.4-16.0) gm/dL Hct (34.0-46.0) % MCV (80.0-100.0) fL MCH (25.0-35.0) pg MCHC (31.0-37.0) g/dL RDW (11.5-15.5) % Plt Count (150-450) k/uL Neutrophils % % Lymphocytes % % Monocytes % % Eosinophils % % Basophils % % Neutrophils # (1.3-7.7) k/uL Lymphocytes # (1.0-4.8) k/uL Monocytes # (0-1.0) k/uL Eosinophils # (0-0.7) k/uL Basophils # (0-0.2) k/uL Hypochromasia Poikilocytosis Anisocytosis Microcytosis PT 9.9 (9.0-12.0) sec INR 1.0 (<1.2) APTT 20.9 L (22.0-30.0) sec Sodium (137-145) mmol/L Potassium (3.5-5.1) mmol/L Chloride (98-107) mmol/L Carbon Dioxide (22-30) mmol/L Anion Gap mmol/L BUN (7-17) mg/dL Creatinine (0.52-1.04) mg/dL Est GFR (CKD-EPI)AfAm (>60 ml/min/1.73 sqM) Est GFR (CKD-EPI)NonAf (>60 ml/min/1.73 sqM) Glucose (74-99) mg/dL Calcium (8.4-10.2) mg/dL Magnesium (1.6-2.3) mg/dL Total Bilirubin (0.2-1.3) mg/dL AST (14-36) U/L ALT (9-52) U/L Alkaline Phosphatase (38-126) U/L Total Creatine Kinase (30-135) U/L CK-MB (CK-2) (0.0-2.4) ng/mL CK-MB (CK-2) Rel Index Troponin I (0.000-0.034) ng/mL NT-Pro-B Natriuret Pep 3890 pg/mL Total Protein (6.3-8.2) g/dL Albumin (3.5-5.0) g/dL Disposition Clinical Impression: Acute respiratory failure with hypoxia and hypercarbia Disposition: ADMITTED IP TO THIS HOSP Referrals: Екатерина Patel MD [Primary Care Provider] - 1-2 days Decision Time: 18:08
--- NOTE | 2018-09-18 16:43 | XR ---
EXAMINATION TYPE: XR chest 1V portable DATE OF EXAM: 09/18/2018 COMPARISON: NONE HISTORY: Short of breath TECHNIQUE: Single frontal view of the chest is obtained. FINDINGS: Heart is enlarged. There is pulmonary vascular congestion. Thoracic aorta is atheromatous. There is slight blunting of the costophrenic angles. IMPRESSION: Congestive heart failure unchanged. Moderate cardiomegaly.
[2018-09-18 17:21] LABS: Anisocytosis Moderate; Basophils % (A) 0 %; Eosinophils # (A) 0.1 k/uL (0-0.7); Eosinophils % (A) 1 %; HCT 41.8 % (34.0-46.0); HGB 12.7 gm/dL (11.4-16.0); Hypochromasia Marked; Lymphocytes # (A) 1.2 k/uL (1.0-4.8); Lymphocytes % (A) 11 %; MCH 26.8 pg (25.0-35.0); MCHC 30.5 g/dL (31.0-37.0); Mean Platelet Volume 8.6; Microcytosis Slight; Monocytes # (A) 0.5 k/uL (0-1.0); Monocytes % (A) 4 %; Neutrophils # (A) 9.2 k/uL (1.3-7.7); Neutrophils % (A) 83 %; Platelet Count 188 k/uL (150-450); Poikilocytosis Moderate; RBC 4.75 m/uL (3.80-5.40); RDW 22.5 % (11.5-15.5); WBC 11.1 k/uL (3.8-10.6)
[2018-09-18 17:32] LABS: Albumin 3.3 g/dL (3.5-5.0); Calcium 10.6 mg/dL (8.4-10.2); Magnesium 2.4 mg/dL (1.6-2.3); Potassium 4.7 mmol/L (3.5-5.1); Total Bilirubin 0.3 mg/dL (0.2-1.3); Total Protein 6.1 g/dL (6.3-8.2)
[2018-09-18 17:40] LABS: Creatine Kinase <20 U/L (30-135)
[2018-09-18 17:43] LABS: Prothrombin Time 9.9 sec (9.0-12.0)
[2018-09-18 17:52] LABS: Partial Thromboplastin Time 20.9 sec (22.0-30.0)
[2018-09-18 17:53] LABS: Creatine Kinase MB 1.2 ng/mL (0.0-2.4); Troponin I 0.022 ng/mL (0.000-0.034)
[2018-09-18] MEDS: IPRATROPIUM-ALBUTEROL 3 ML NEB INHALATION SCH (18:57)
[2018-09-18 19:13] LABS: VBG PH 7.28 (7.31-7.41)
[2018-09-18 20:06] LABS: Glucose,Whole Blood 155 mg/dL (75-99)
[2018-09-18] MEDS: METOPROLOL TARTRATE 50 MG TAB PO SCH (21:47)
[2018-09-18] MEDS: APIXABAN 5 MG TAB PO SCH (21:47)
[2018-09-18] MEDS: DILTIAZEM ORAL 30 MG TAB PO SCH (21:47)
[2018-09-18] MEDS: methylPREDNISolone SOD SUCCI 125 MG/2 ML VIAL IV SCH (22:59)
[2018-09-18] MEDS: ACETAMINOPHEN TAB 325 MG TAB PO PRN (23:53)
[2018-09-19] MEDS: INSULIN ASPART 100 UNIT/ML 1 ML 10 ML VIAL SQ SCH ×4 (05:50→21:10)
[2018-09-19] MEDS: methylPREDNISolone SOD SUCCI 125 MG/2 ML VIAL IV SCH ×2 (05:50→13:01)
[2018-09-19 05:58] LABS: Glucose,Whole Blood 230 mg/dL (75-99)
[2018-09-19] MEDS: IPRATROPIUM-ALBUTEROL 3 ML NEB INHALATION SCH ×4 (08:20→20:02)
[2018-09-19] MEDS: SYMBICORT 160-4.5 MCG INHALER INHALATION SCH ×2 (08:21→20:02)
[2018-09-19] MEDS: SPIRONOLACTONE 25 MG TAB PO SCH (09:46)
[2018-09-19] MEDS: DILTIAZEM ORAL 30 MG TAB PO SCH ×2 (09:46→19:39)
[2018-09-19] MEDS: METOPROLOL TARTRATE 50 MG TAB PO SCH ×2 (09:46→19:38)
[2018-09-19] MEDS: APIXABAN 5 MG TAB PO SCH ×2 (09:46→19:38)
[2018-09-19 11:28] LABS: Glucose,Whole Blood 205 mg/dL (75-99)
--- NOTE | 2018-09-19 12:03 | P.CONS ---
History of Present Illness - Reason for Consult Consult date: 09/19/18 Right lower extremity wound - History of Present Illness This is a 68-year-old female well-known to ID service as she has been seen in the past for chronic wounds and she has frequent admissions for heart failure with history of morbid obesity and lower extremity edema. Patient's daughters states that her breathing status has been stable. She is normally on O2 at 4 L nasal cannula since her last hospitalization. She uses a BiPAP at night. Patient developed a bubble type wound to the right pretibial area which her daughter states was a size of a thumbnail last week. This area continued to swell and reddened and she came into [facility] emergency center on was diagnosed with cellulitis and sent home on Keflex 500 mg every 6 hours for 5 days. This large blister has been popping on its own and then refilling with fluid almost daily and has increased in size to encompass almost the entire pretibial area. She denies that her mother has had any fever or chills. No problem with swallowing, bowel movements a been normal no blood in her stools or no diarrhea. She has urinating but decreased output over the past couple days. Patient had a drop in her pulse ox last night 85 when she was put on BiPAP it dropped down to 70%. EMS was called and patient was brought into [facility] emergency center for evaluation of acute hypoxic respiratory failure and acute diastolic heart failure. Chest x- ray showed CHF unchanged with moderate cardiomegaly. Her respiratory rate was 40, she was afebrile, her initial pulse ox was 69%. White count 11.1, creatinine 1.25. She was started on IV Lasix azithromycin and Solu-Medrol and admitted to the cardiac stepdown unit. There is a consult in place with pulmonary medicine. Patient also presented with stage II pressure ulcer left buttock. Patient is currently on BiPAP and states that she is feeling better since she came in. She is able to nod to answer questions. She is currently wheelchair bound and lives with her daughter. Review of Systems All systems: negative Constitutional: Reports fatigue, Denies chills, Denies fever, Denies weight loss Eyes: denies blurred vision, denies pain Ears, nose, mouth and throat: Denies dysphagia, Denies headache, Denies mouth pain, Denies sore throat, Denies vertigo Cardiovascular: Denies chest pain, Denies shortness of breath Respiratory: Denies cough Gastrointestinal: Denies abdominal pain, Denies diarrhea, Denies nausea, Denies vomiting Genitourinary: Denies dysuria, Denies hematuria Musculoskeletal: Denies myalgias Integumentary: Denies pruritus, Denies rash Neurological: Denies numbness, Denies weakness Psychiatric: Denies anxiety, Denies depression Endocrine: Denies fatigue, Denies weight change Past Medical History Past Medical History: Atrial Fibrillation, Asthma, Heart Failure, COPD, GERD/ Reflux, GI Bleed, Hypertension, Pneumonia, Renal Disease Additional Past Medical History / Comment(s): Morbid obesity, chronic hypoxic respiratory failure, chronic hypercapnic respiratory failure, CHF with diastolic dysfunction, borderline pulmonary hypertension, obstructive sleep apnea, breast hypoventilation syndrome, chronic atrial fibrillation, chronic lower extremity edema, venous stasis, ulceration, chronic microcytic anemia, history of peptic ulcer disease, history of diverticulosis and previous history of diverticulitis, previous history of ventilator dependent respiratory failure requiring intubation 2017, previous history of E. coli urinary tract infection, previous history of C. 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 has hospital bed, shower chair, manpreet lift , w/c, walker. Smoked 1 pack per day and quit smoking in 2013 Smoking Status: Former smoker Past Alcohol Use History: None Reported Additional Past Alcohol Use History / Comment(s): started smoking in 1967 used to smoke 1 ppd, quit 1-2013 Past Drug Use History: None Reported - Past Family History Father Family Medical History: Eye Disorder, Osteoarthritis (OA) Additional Family Medical History / Comment(s): at age 92 from old age, had macular degeneration Mother Family Medical History: Coronary Artery Disease (CAD), Diabetes Mellitus, Hypertension, Renal Disease Additional Family Medical History / Comment(s): cabg, dialysis Medications and Allergies Home Medications Medication Instructions Recorded Confirmed Type Apixaban [Eliquis] 5 mg PO BID #60 tab 03/31/18 09/18/18 Rx Budesonide-Formot 160-4.5 Mcg 2 puff INHALATION RT-BID 05/31/18 09/18/18 History [Symbicort 160-4.5 Mcg Inhaler] Diltiazem HCl 90 mg PO BID 05/31/18 09/18/18 History Spironolactone [Aldactone] 25 mg PO DAILY 05/31/18 09/18/18 History Furosemide [Lasix] 80 mg PO QAM 08/25/18 09/18/18 History Metoprolol Tartrate [Lopressor] 100 mg PO BID 08/25/18 09/18/18 History Cephalexin [Keflex] 500 mg PO Q6HR 5 Days #20 cap 09/15/18 09/18/18 Rx Furosemide [Lasix] 40 mg PO HS 09/18/18 09/18/18 History Allergies Allergy/AdvReac Type Severity Reaction Status Date / Time No Known Allergies Allergy Verified 09/15/18 13:50 Physical Exam Vitals: Vital Signs Temp Pulse Pulse Resp BP BP Pulse Ox 09/19/18 08:33 108 H 09/19/18 08:00 97.8 F 85 23 128/70 94 L 09/19/18 03:29 90 32 H 108/53 93 L 09/19/18 00:00 105 H 33 H 120/74 93 L 09/18/18 20:00 98.3 F 114 H 24 129/80 92 L 09/18/18 19:13 109 H 09/18/18 18:59 112 H 09/18/18 18:58 97.1 F L 101 H 31 H 93 L 09/18/18 18:51 100 30 H 140/82 93 L 09/18/18 18:37 98.3 F 114 H 24 129/80 92 L 09/18/18 18:20 99 30 H 135/70 93 L 09/18/18 18:10 100 30 H 121/61 96 09/18/18 18:00 110 H 15 115/85 97 09/18/18 17:40 108 H 19 102/48 92 L 09/18/18 17:30 117 H 32 H 114/58 92 L 09/18/18 17:21 110 H 09/18/18 17:10 92 24 117/77 97 09/18/18 17:01 101 H 32 H 117/77 98 09/18/18 16:52 114 H 09/18/18 16:45 95 09/18/18 16:39 111 H 09/18/18 16:14 112 H 35 H 133/96 96 09/18/18 16:00 98.6 F 104 H 40 H 132/60 69 L Intake and Output 09/18/18 09/19/18 09/19/18 22:59 06:59 14:59 Intake Total 600 Balance 600 Intake: Oral 600 Other: # Voids 2 # Bowel Movements 1 Weight 182 kg 182 kg 182 kg Gen: This is a 68-year-old morbidly obese female. She is sitting upright in bed on BiPAP. HEENT: Head is atraumatic, normocephalic. Pupils equal, round. Sclerae is anicteric. Conjunctiva slightly pale. NECK: Supple. No JVD. No lymphadenopathy. No thyromegaly. LUNGS: Diminished bilaterally No wheezes or rhonchi. No intercostal retractions. HEART: Irregularly irregular rate and rhythm. No murmur. Distant heart sounds. ABDOMEN: Soft. Bowel sounds are present. No masses. No tenderness. No redness under her abdominal fold. EXTREMITIES: 3+ bilateral pedal edema. Large dressing in place on the right lower extremity which was not removed for evaluation and referred to Dr. Shepherd.. NEUROLOGICAL: Patient is awake, alert and oriented x3. Generalized weakness noted. Results Results: Laboratory Results WBC 11.1 k/uL (3.8-10.6) H 09/18/18 16:45 RBC 4.75 m/uL (3.80-5.40) 09/18/18 16:45 Hgb 12.7 gm/dL (11.4-16.0) 09/18/18 16:45 Hct 41.8 % (34.0-46.0) 09/18/18 16:45 MCV 88.0 fL (80.0-100.0) 09/18/18 16:45 MCH 26.8 pg (25.0-35.0) 09/18/18 16:45 MCHC 30.5 g/dL (31.0-37.0) L 09/18/18 16:45 RDW 22.5 % (11.5-15.5) H 09/18/18 16:45 Plt Count 188 k/uL (150-450) 09/18/18 16:45 Neutrophils % 83 % 09/18/18 16:45 Lymphocytes % 11 % 09/18/18 16:45 Monocytes % 4 % 09/18/18 16:45 Eosinophils % 1 % 09/18/18 16:45 Basophils % 0 % 09/18/18 16:45 Neutrophils # 9.2 k/uL (1.3-7.7) H 09/18/18 16:45 Lymphocytes # 1.2 k/uL (1.0-4.8) 09/18/18 16:45 Monocytes # 0.5 k/uL (0-1.0) 09/18/18 16:45 Eosinophils # 0.1 k/uL (0-0.7) 09/18/18 16:45 Basophils # 0.0 k/uL (0-0.2) 09/18/18 16:45 Hypochromasia Marked 09/18/18 16:45 Poikilocytosis Moderate 09/18/18 16:45 Anisocytosis Moderate 09/18/18 16:45 Microcytosis Slight 09/18/18 16:45 PT 9.9 sec (9.0-12.0) 09/18/18 16:45 INR 1.0 (<1.2) 09/18/18 16:45 APTT 20.9 sec (22.0-30.0) L 09/18/18 16:45 VBG pH 7.28 (7.31-7.41) L 09/18/18 16:45 VBG pCO2 84 mmHg (37-51) H* 09/18/18 16:45 VBG HCO3 38 mmol/L (24-28) H 09/18/18 16:45 Sodium 138 mmol/L (137-145) 09/18/18 16:45 Potassium 4.7 mmol/L (3.5-5.1) 09/18/18 16:45 Chloride 89 mmol/L (98-107) L 09/18/18 16:45 Carbon Dioxide 39 mmol/L (22-30) H 09/18/18 16:45 Anion Gap 10 mmol/L 09/18/18 16:45 BUN 71 mg/dL (7-17) H 09/18/18 16:45 Creatinine 1.25 mg/dL (0.52-1.04) H 09/18/18 16:45 Est GFR (CKD-EPI)AfAm 51 (>60 ml/min/1.73 sqM) 09/18/18 16:45 Est GFR (CKD-EPI)NonAf 44 (>60 ml/min/1.73 sqM) 09/18/18 16:45 Glucose 160 mg/dL (74-99) H 09/18/18 16:45 POC Glucose (mg/dL) 205 mg/dL (75-99) H 09/19/18 11:24 POC Glu Client Experience Administrator ID Tanesha Grace 09/19/18 11:[address] Glu mg/dL 126 09/18/18 16:45 Hemoglobin A1c 6.0 % (4.0-6.0) 09/18/18 16:45 Calcium 10.6 mg/dL (8.4-10.2) H 09/18/18 16:45 Magnesium 2.4 mg/dL (1.6-2.3) H 09/18/18 16:45 Total Bilirubin 0.3 mg/dL (0.2-1.3) 09/18/18 16:45 AST 23 U/L (14-36) 09/18/18 16:45 ALT 31 U/L (9-52) 09/18/18 16:45 Alkaline Phosphatase 96 U/L (38-126) 09/18/18 16:45 Total Creatine Kinase <20 U/L (30-135) L 09/18/18 16:45 CK-MB (CK-2) 1.2 ng/mL (0.0-2.4) 09/18/18 16:45 CK-MB (CK-2) Rel Index 09/18/18 16:45 Troponin I 0.022 ng/mL (0.000-0.034) 09/18/18 16:45 NT-Pro-B Natriuret Pep 3890 pg/mL 09/18/18 16:45 Total Protein 6.1 g/dL (6.3-8.2) L 09/18/18 16:45 Albumin 3.3 g/dL (3.5-5.0) L 09/18/18 16:45 CBC & Chem 7: 09/20/18 06:29 09/20/18 06:29 Labs: Abnormal Lab Results - Last 24 Hours (Table) 09/18/18 09/18/18 09/18/18 Range/Units 16:45 16:45 16:45 WBC 11.1 H (3.8-10.6) k/uL MCHC 30.5 L (31.0-37.0) g/dL RDW 22.5 H (11.5-15.5) % Neutrophils # 9.2 H (1.3-7.7) k/uL APTT (22.0-30.0) sec VBG pH (7.31-7.41) VBG pCO2 (37-51) mmHg VBG HCO3 (24-28) mmol/L Chloride 89 L (98-107) mmol/L Carbon Dioxide 39 H (22-30) mmol/L BUN 71 H (7-17) mg/dL Creatinine 1.25 H (0.52-1.04) mg/dL Glucose 160 H (74-99) mg/dL POC Glucose (mg/dL) (75-99) mg/dL Calcium 10.6 H (8.4-10.2) mg/dL Magnesium 2.4 H (1.6-2.3) mg/dL Total Creatine Kinase <20 L (30-135) U/L Total Protein 6.1 L (6.3-8.2) g/dL Albumin 3.3 L (3.5-5.0) g/dL 09/18/18 09/18/18 09/18/18 Range/Units 16:45 16:45 20:05 WBC (3.8-10.6) k/uL MCHC (31.0-37.0) g/dL RDW (11.5-15.5) % Neutrophils # (1.3-7.7) k/uL APTT 20.9 L (22.0-30.0) sec VBG pH 7.28 L (7.31-7.41) VBG pCO2 84 H* (37-51) mmHg VBG HCO3 38 H (24-28) mmol/L Chloride (98-107) mmol/L Carbon Dioxide (22-30) mmol/L BUN (7-17) mg/dL Creatinine (0.52-1.04) mg/dL Glucose (74-99) mg/dL POC Glucose (mg/dL) 155 H (75-99) mg/dL Calcium (8.4-10.2) mg/dL Magnesium (1.6-2.3) mg/dL Total Creatine Kinase (30-135) U/L Total Protein (6.3-8.2) g/dL Albumin (3.5-5.0) g/dL 09/19/18 Range/Units 05:47 WBC (3.8-10.6) k/uL MCHC (31.0-37.0) g/dL RDW (11.5-15.5) % Neutrophils # (1.3-7.7) k/uL APTT (22.0-30.0) sec VBG pH (7.31-7.41) VBG pCO2 (37-51) mmHg VBG HCO3 (24-28) mmol/L Chloride (98-107) mmol/L Carbon Dioxide (22-30) mmol/L BUN (7-17) mg/dL Creatinine (0.52-1.04) mg/dL Glucose (74-99) mg/dL POC Glucose (mg/dL) 230 H (75-99) mg/dL Calcium (8.4-10.2) mg/dL Magnesium (1.6-2.3) mg/dL Total Creatine Kinase (30-135) U/L Total Protein (6.3-8.2) g/dL Albumin (3.5-5.0) g/dL Assessment and Plan Plan: This is a 68-year-old female who presented to the hospital with acute hypoxic respiratory failure and acute diastolic heart failure. Patient also has large blistering type wound to the right lower extremity that has failed outpatient treatment. Patient is currently on azithromycin, transitioned to Zosyn. Wound culture will be obtained. Local wound care will be addressed. Further recommendations as patient progresses. The above dictated assessment and findings were discussed with Dr. Shepherd. The impression and plan of care have been directed as dictated. María Elena Love nurse practitioner acting as scribe for Dr. Shepherd.
[2018-09-19 15:02] LABS: Anisocytosis Moderate; HCT 41.2 % (34.0-46.0); HGB 12.4 gm/dL (11.4-16.0); Hypochromasia Marked; MCH 26.6 pg (25.0-35.0); MCV 88.7 fL (80.0-100.0); Mean Platelet Volume 8.3; Microcytosis Slight; Platelet Count 183 k/uL (150-450); Poikilocytosis Moderate; RBC 4.65 m/uL (3.80-5.40); RDW 22.3 % (11.5-15.5); WBC 9.8 k/uL (3.8-10.6)
[2018-09-19 15:22] LABS: Calcium 10.5 mg/dL (8.4-10.2); Potassium 5.1 mmol/L (3.5-5.1)
[2018-09-19 15:59] LABS: ABG Base Excess 13.6 mmol/L; ABG Oxygen Saturation 96.8 % (94-97); ABG PH 7.25 (7.35-7.45); ABG PO2 89 mmHg (83-108); ABG TCO2 44 mmol/L (19-24)
[2018-09-19] MEDS ORDERED: AZITHROMYCIN 500 MG TAB PO SCH (16:00)
[2018-09-19 16:04] LABS: ABG HCO3 41 mmol/L (21-25); ABG PCO2 92 mmHg (35-45)
[2018-09-19 16:22] LABS: Glucose,Whole Blood 257 mg/dL (75-99)
[2018-09-19] MEDS: FUROSEMIDE 10 MG/ML 4 ML VIAL IV SCH ×2 (16:51→23:15)
[2018-09-19] MEDS: PIPERACILLIN-TAZOBACTAM 3.375 GM in SODIUM CHLORIDE 0.9% 100 ML IVPB SCH ×2 (16:51→23:15)
--- NOTE | 2018-09-19 17:16 | P.CNPUL ---
History of Present Illness Consult date: 09/19/18 Chief complaint: Diminished level of consciousness, History of present illness: [id number] female patient, morbidly obese presented to the hospital because of diminished level of consciousness and cellulitis of the lower extremity. The patient developed a large vesicle over the pretibial area and the right lower extremity and ultimately the vesicle pops and the patient had a large erythematous patch in the right lower extremity at the site of the previous vesicle with skin irregularity and ulceration. The patient has chronic lower extremity edema bilaterally. No reported fever or chills. Nevertheless the patient was becoming more lethargic. She came into the emergency department the patient was found to be hypoxic. Her initial pulse ox was in the mid/low 80s. The patient was placed immediately on BiPAP at a car to the patient is on BiPAP at a pressure of over 5 cm of water. He is also on a FiO2 of 50%. The chest x-ray is limited because of her body habitus. Nevertheless, the patient has no cough or sputum production. No reported chest pain. No sputum production. She was also started on accommodation of Rocephin and Zithromax suspecting an underlying pneumonia and she was admitted to the hospital. I saw this patient and I also talked to her daughter at the bedside. The concern is for now right lower extremity cellulitis. Started this patient IV Zosyn pending infectious disease consultation. I reviewed the blood gases from this morning and the results are as mentioned above. Despite ongoing diminished level of consciousness, the patient is arousable and she can follow commands and answer questions appropriately. My last encounter with this patient was in the office and at that time I checked her BiPAP machine which is set at a pressure of 14/7 cm of water. She was extremely compliant and her AHI while on treatment was less than 5 consistent with successful BiPAP therapy. The patient has a stable renal function with a creatinine of 1.25 and a time of admission. Her white cell count is 11.1. She has also station to pressure ulcer in her left buttocks. No aspiration. No chest pain. She is moving all 4 extremities without any limitation. Review of Systems Constitutional: He has chronic sleepiness and fatigue, in addition to her very poor baseline performance and functional status., Denies chills, Denies fever, Denies weight loss, she has obesity and she has had difficult mobility and gait and she is currently nonambulatory. Eyes: denies blurred vision, denies pain Ears, nose, mouth and throat: Denies dysphagia, Denies headache, Denies mouth pain, Denies sore throat, Denies vertigo Cardiovascular: Denies chest pain, Denies shortness of breath Respiratory: Denies cough Gastrointestinal: Denies abdominal pain, Denies diarrhea, Denies nausea, Denies vomiting Genitourinary: Denies dysuria, Denies hematuria Musculoskeletal: Denies myalgias Integumentary: Denies pruritus, there is a right lower extremity cellulitis as mentioned in my history of present illness. Neurological: Denies numbness, Denies weakness, fluctuating level of consciousness secondary to CO2 narcosis. Psychiatric: Denies anxiety, Denies depression Endocrine: Make fatigue, Denies weight change Past Medical History Past Medical History: Atrial Fibrillation, Asthma, Heart Failure, COPD, GERD/ Reflux, GI Bleed, Hypertension, Pneumonia, Renal Disease Additional Past Medical History / Comment(s): Morbid obesity, chronic hypoxic respiratory failure, chronic hypercapnic respiratory failure, CHF with diastolic dysfunction, borderline pulmonary hypertension, obstructive sleep apnea, obesity hypoventilation syndrome, chronic atrial fibrillation, chronic lower extremity edema, venous stasis, ulceration, chronic microcytic anemia, history of peptic ulcer disease, history of diverticulosis and previous history of diverticulitis, previous history of ventilator dependent respiratory failure requiring intubation 2018, previous history of E. coli urinary tract infection, previous history of C. 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 has hospital bed, shower chair, manpreet lift , w/c, walker. Smoked 1 pack per day and quit smoking in 2013 Smoking Status: Former smoker Past Alcohol Use History: None Reported Additional Past Alcohol Use History / Comment(s): started smoking in 1967 used to smoke 1 ppd, quit Past Drug Use History: None Reported - Past Family History Father Family Medical History: Eye Disorder, Osteoarthritis (OA) Additional Family Medical History / Comment(s): at age 92 from old age, had macular degeneration Mother Family Medical History: Coronary Artery Disease (CAD), Diabetes Mellitus, Hypertension, Renal Disease Additional Family Medical History / Comment(s): cabg, dialysis Medications and Allergies Home Medications Medication Instructions Recorded Confirmed Type Apixaban [Eliquis] 5 mg PO BID #60 tab 03/31/18 09/18/18 Rx Budesonide-Formot 160-4.5 Mcg 2 puff INHALATION RT-BID 05/31/18 09/18/18 History [Symbicort 160-4.5 Mcg Inhaler] Diltiazem HCl 90 mg PO BID 05/31/18 09/18/18 History Spironolactone [Aldactone] 25 mg PO DAILY 05/31/18 09/18/18 History Furosemide [Lasix] 80 mg PO QAM 08/25/18 09/18/18 History Metoprolol Tartrate [Lopressor] 100 mg PO BID 08/25/18 09/18/18 History Cephalexin [Keflex] 500 mg PO Q6HR 5 Days #20 cap 09/15/18 09/18/18 Rx Furosemide [Lasix] 40 mg PO HS 09/18/18 09/18/18 History Allergies Allergy/AdvReac Type Severity Reaction Status Date / Time No Known Allergies Allergy Verified 09/15/18 13:50 Physical Exam Vitals: Vital Signs Temp Pulse Pulse Resp BP BP BP 09/19/18 16:29 102 H 09/19/18 16:17 100 23 09/19/18 16:00 97.7 F 79 30 H 127/72 09/19/18 12:01 102 H 09/19/18 12:00 98.3 F 82 21 120/70 09/19/18 11:50 100 09/19/18 08:33 108 H 09/19/18 08:00 97.8 F 85 23 128/70 09/19/18 03:29 90 32 H 108/53 09/19/18 00:00 105 H 33 H 120/74 09/18/18 20:00 98.3 F 114 H 24 129/80 09/18/18 19:13 109 H 09/18/18 18:59 112 H 09/18/18 18:58 97.1 F L 101 H 31 H 09/18/18 18:51 100 30 H 140/82 09/18/18 18:37 98.3 F 114 H 24 129/80 09/18/18 18:20 99 30 H 135/70 09/18/18 18:10 100 30 H 121/61 09/18/18 18:00 110 H 15 115/85 09/18/18 17:40 108 H 19 102/48 09/18/18 17:30 117 H 32 H 114/58 09/18/18 17:21 110 H Pulse Ox 09/19/18 16:29 09/19/18 16:17 94 L 09/19/18 16:00 96 09/19/18 12:01 09/19/18 12:00 95 09/19/18 11:50 09/19/18 08:33 09/19/18 08:00 94 L 09/19/18 03:29 93 L 09/19/18 00:00 93 L 09/18/18 20:00 92 L 09/18/18 19:13 09/18/18 18:59 09/18/18 18:58 93 L 09/18/18 18:51 93 L 09/18/18 18:37 92 L 09/18/18 18:20 93 L 09/18/18 18:10 96 09/18/18 18:00 97 09/18/18 17:40 92 L 09/18/18 17:30 92 L 09/18/18 17:21 Intake and Output 09/19/18 09/19/18 09/19/18 06:59 14:59 22:59 Intake Total 600 240 Output Total 300 100 Balance 600 -60 -100 Intake: Oral 600 240 Output: Urine 300 100 Other: # Voids 2 2 Weight 182 kg 182 kg Gen: This is a 68-year-old morbidly obese female. She is sitting upright in bed on BiPAP. The patient is lethargic at this is arousable. She would wake up and showed answer questions at this left ultimately that she was go back to sleep. She is able to follow commands. No focal neurological deficit at this point. She is able to tolerate a full face BiPAP mask treatment without any major limitation. HEENT: Head is atraumatic, normocephalic. Pupils equal, round. Sclerae is anicteric. Conjunctiva slightly pale. NECK: Supple. No JVD. No lymphadenopathy. No thyromegaly. LUNGS: Diminished bilaterally No wheezes or rhonchi. No intercostal retractions. HEART: Irregularly irregular rate and rhythm. No murmur. Distant heart sounds. ABDOMEN: Soft. Bowel sounds are present. No masses. No tenderness. No redness under her abdominal fold. EXTREMITIES: 3+ bilateral pedal edema. Large dressing in place on the right lower extremity which was not removed for evaluation and there is a that skin overlying the anterior parker in the right lower extremity related to a previous burst of a vesicle. The underlying skin is quite erythematous and red and there is a very clear demarcation line which linares cellulitis. NEUROLOGICAL: Patient is awake, alert and oriented x3. Generalized weakness noted. Somnolent if left unstimulated. No focal neurological deficits. Results - Laboratory Findings CBC and BMP: 09/19/18 14:44 09/19/18 14:44 ABG ABG pH 7.25 (7.35-7.45) L 09/19/18 15:54 ABG pCO2 92 mmHg (35-45) H* 09/19/18 15:54 ABG pO2 89 mmHg (83-108) 09/19/18 15:54 ABG O2 Saturation 96.8 % (94-97) 09/19/18 15:54 PT/INR, D-dimer PT 9.9 sec (9.0-12.0) 09/18/18 16:45 INR 1.0 (<1.2) 09/18/18 16:45 Abnormal lab findings: Abnormal Labs 09/18/18 09/18/18 09/18/18 16:45 16:45 16:45 WBC 11.1 H MCHC 30.5 L RDW 22.5 H Neutrophils # 9.2 H APTT ABG pH ABG pCO2 ABG HCO3 ABG Total CO2 VBG pH VBG pCO2 VBG HCO3 Chloride 89 L Carbon Dioxide 39 H BUN 71 H Creatinine 1.25 H Glucose 160 H POC Glucose (mg/dL) Calcium 10.6 H Magnesium 2.4 H Total Creatine Kinase <20 L Total Protein 6.1 L Albumin 3.3 L 09/18/18 09/18/18 09/18/18 16:45 16:45 20:05 WBC MCHC RDW Neutrophils # APTT 20.9 L ABG pH ABG pCO2 ABG HCO3 ABG Total CO2 VBG pH 7.28 L VBG pCO2 84 H* VBG HCO3 38 H Chloride Carbon Dioxide BUN Creatinine Glucose POC Glucose (mg/dL) 155 H Calcium Magnesium Total Creatine Kinase Total Protein Albumin 09/19/18 09/19/18 09/19/18 05:47 11:24 14:44 WBC MCHC 30.0 L RDW 22.3 H Neutrophils # APTT ABG pH ABG pCO2 ABG HCO3 ABG Total CO2 VBG pH VBG pCO2 VBG HCO3 Chloride Carbon Dioxide BUN Creatinine Glucose POC Glucose (mg/dL) 230 H 205 H Calcium Magnesium Total Creatine Kinase Total Protein Albumin 09/19/18 09/19/18 09/19/18 14:44 15:54 16:20 WBC MCHC RDW Neutrophils # APTT ABG pH 7.25 L ABG pCO2 92 H* ABG HCO3 41 H* ABG Total CO2 44 H VBG pH VBG pCO2 VBG HCO3 Chloride 93 L Carbon Dioxide 33 H BUN 79 H Creatinine 1.10 H Glucose 205 H POC Glucose (mg/dL) 257 H Calcium 10.5 H Magnesium Total Creatine Kinase Total Protein Albumin - Diagnostic Findings Chest x-ray: image reviewed Assessment and Plan Plan: Assessment 1 acute cellulitis of the lower extremity in addition to a superficial ulceration secondary to previous edema/fluid seeping from the skin surface 2 acute on chronic hypoxic and hypercapnic respiratory failure secondary to above. There may be a mild component of fluid overload based on the chest x- ray finding over the chest x-ray findings are somewhat limited because of her morbidly obese body habitus. Currently she is on a BiPAP at a pressure of 12/5 cm of water with an FiO2 of 50%. Chest x-ray still showing a component of respiratory acidosis. 3 chronic diastolic heart failure 4 obesity hypoventilation syndrome 5 obstructive sleep apnea 6 severe restrictive lung disease secondary to morbid obesity 7 morbidly obese due to BMI of 68.7 8 chronic atrial fibrillation 9 hypertension 10 stage II chronic kidney disease 11 acid reflux 12 very poor baseline performance and functional status secondary to above- mentioned comorbidities. 13 recurrent cellulites of the lower extremities bilaterally Plan Continue BiPAP support for now. Continue DuoNeb nebulized treatments around the clock. Repeated blood gases in a.m. Keep the same BiPAP settings for now. Consult infectious disease regarding the right lower extremity cellulitis. Start the patient IV Zosyn for now and restart with a possibility of making further adjustments following an ID evaluation. Local wound care. IV diuretics. Continue to follow. High risk of going into respiratory failure secondary to above-mentioned comorbidities. Case was discussed with the family. We'll keep her on BiPAP throughout the night tonight.
--- NOTE | 2018-09-19 19:29 | HP ---
HISTORY AND PHYSICAL CHIEF CONCERN: Shortness of breath as well as bilateral leg swelling and as well as right leg ulcer. HISTORY OF PRESENT ILLNESS: This 68-year-old gentleman with a past medical history of atrial fibrillation, asthma, CHF, COPD, GERD, hypertension, renal disease, morbid obesity, history of cholecystectomy being followed by Dr. Agee in the outpatient setting, noted to have increasing leg swelling and as well as right leg ulcer also. The family took the patient to the emergency room. The patient developed progressive respiratory difficulties and patient came to [facility] admitted for evaluation and treatment. The blister was fairly large, which burst according to her and now discharging purulent drainage at this time. There is no history of any fever, rigors, chills. No headache, loss of consciousness, seizures. PAST MEDICAL HISTORY: History of atrial ablation, asthma, CHF, COPD, GERD, hypertension, pneumonia, renal disease, morbid obesity, history of restrictive lung disease, chronic hypoxic respiratory failure. MEDICATIONS: Prior to admission include home medications are: 1. Diltiazem 90 mg b.i.d. 2. Aldactone 25 mg p.o. daily. 3. Lopressor 100 mg p.o. b.i.d. 4. Lasix 40 mg q.h.s. 5. Lasix 80 mg q.a.m. 6. Keflex 500 mg q.6h. 7. Symbicort 160/4.5, two puffs b.i.d. 8. Eliquis 5 mg p.o. b.i.d. ALLERGIES: None. FAMILY HISTORY: History of degenerative joint disease. SOCIAL HISTORY: Previous history of smoking. No history of current smoking or alcohol intake. REVIEW OF SYSTEMS: ENT: No diminished hearing or diminished vision. CARDIOVASCULAR: No angina. RESPIRATORY: As mentioned earlier. GI: As mentioned. : No dysuria. NERVOUS SYSTEM: As mentioned earlier. ALLERGY/IMMUNOLOGY: No asthma or hayfever. MUSCULOSKELETAL as mentioned earlier. HEMATOLOGY/ONCOLOGY: No history of diabetes or hypothyroidism. CONSTITUTIONAL: As mentioned. DERMATOLOGY: Negative. RHEUMATOLOGY: Negative. PSYCHIATRY: As mentioned earlier. PHYSICAL EXAMINATION: Alert and oriented x3. Pulse 82, blood pressure is 120/70, respiration 20, temperature 98.2, pulse ox 94% on BiPAP. BiPAP settings are noted. HEENT: Conjunctivae normal. Oral mucosa moist. Neck is obese. CARDIOVASCULAR: S1, S2. RESPIRATORY: Breath sounds diminished in the bases. A few scattered rhonchi and crackles. Expiratory wheezing also present. ABDOMEN: Soft, obese, nontender. LEGS: Bilateral leg edema and venous edema changes also present. Patient also has significant blister which has burst and draining significant mucopurulent discharge extensively on the right lower leg lateral part. Pulses diminished bilaterally. NERVOUS SYSTEM: Higher function as mentioned earlier. Moves all four limbs. No focal motor deficits. LYMPHATICS: No lymphadenopathy in the neck, axillae, groin. SKIN: No ulcer, rash or bleeding. LABS: WBC 11.1, hemoglobin 12.7 and ABGs noted. Sodium 130, potassium 4.7, creatinine is 1.25, magnesium is 2.4. ASSESSMENT: 1. Acute hypoxic hypercarbic respiratory failure with acute on chronic respiratory failure on BiPAP, possibly secondary to chronic obstructive pulmonary disease acute exacerbation as well as congestive heart failure acute exacerbation with acute on chronic diastolic dysfunction. 2. Significant right lower leg blister and cellulitis. 3. Restrictive lung disease secondary to morbid obesity. 4. Acute respiratory acidosis. 5. Increased creatinine with chronic kidney disease stage III. 6. History of atrial fibrillation, paroxysmal. 7. History of asthma. 8. History of congestive heart failure. 9. History of chronic obstructive pulmonary disease. 10.Gastroesophageal reflux disease. 11.History of gastrointestinal bleed. 12.History of hypertension. 13.History of pneumonia. 14.History of morbid obesity with a BMI of 68.9. 15.Chronic hypoxic respiratory on home O2. 16.History of venostasis ulcers. 17.History of peptic ulcer disease. 18.History of diverticulosis. 19.History of C difficile. 20.History of remote nicotine dependence. RECOMMENDATIONS AND DISCUSSION: This 62-year-old woman who presented with multiple complex medical issues, will monitor the patient closely. Continue the current management and symptomatic treatment. I recommend to continue IV diuretics. Monitor fluid and electrolytes balance closely. Strict intake on the chart. Follow closely with Pulmonology. Also recommend broad- spectrum IV antibiotics. Obtain cultures. Infectious Disease evaluation. Resume the rest of the home medications. Prognosis guarded because of multiple complex medical issues. Further recommendations to follow. Discussed at length with the daughter, who understands. Further recommendations to follow. MMODL / IJN: [id number] /
[2018-09-19] MEDS: ACETAMINOPHEN TAB 325 MG TAB PO PRN (19:39)
[2018-09-19 21:03] LABS: Glucose,Whole Blood 213 mg/dL (75-99)
--- NOTE | 2018-09-19 21:53 | P.CON ---
Consult Note - . Consult date: 09/19/18 Assessment/Plan:: This is a 68-year-old female well-known to ID service as she has been seen in the past for chronic wounds and she has frequent admissions for heart failure with history of morbid obesity and lower extremity edema. Patient's daughters states that her breathing status has been stable. She is normally on O2 at 4 L nasal cannula since her last hospitalization. She uses a BiPAP at night. Patient developed a bubble type wound to the right pretibial area which her daughter states was a size of a thumbnail last week. This area continued to swell and reddened and she came into [facility] emergency center on was diagnosed with cellulitis and sent home on Keflex 500 mg every 6 hours for 5 days. This large blister has been popping on its own and then refilling with fluid almost daily and has increased in size to encompass almost the entire pretibial area. She denies that her mother has had any fever or chills. No problem with swallowing, bowel movements a been normal no blood in her stools or no diarrhea. She has urinating but decreased output over the past couple days. Patient had a drop in her pulse ox last night 85 when she was put on BiPAP it dropped down to 70%. EMS was called and patient was brought into [facility] emergency center for evaluation of acute hypoxic respiratory failure and acute diastolic heart failure. Chest x- ray showed CHF unchanged with moderate cardiomegaly. Her respiratory rate was 40, she was afebrile, her initial pulse ox was 69%. White count 11.1, creatinine 1.25. She was started on IV Lasix azithromycin and Solu-Medrol and admitted to the cardiac stepdown unit. There is a consult in place with pulmonary medicine. Patient also presented with stage II pressure ulcer left buttock. Patient is currently on BiPAP and states that she is feeling better since she came in. She is able to nod to answer questions. She is currently wheelchair bound and lives with her daughter. Please see the consult as dictated by nurse practitioner Mrs. Dickeyy Ivan. As noted superobese woman who has had worsening volume status and is without significant bulla to the right leg. She is having ongoing difficulties with her oxygen saturations despite her BiPAP. Local care with a Silvadene wrap will be applied to the right lower extremity. Elevate as much as possible. Cultures are process. Due to her complex history Zosyn has been started which was be primarily being used for her pulmonary disease. We will also provide coverage for multiple pathogens that could be affecting the leg. Wound culture is pending at this time. I agree with evaluation, assessment and plan as dictated by nurse practitioner Mrs. María Elena Love.
[2018-09-20 05:42] LABS: Glucose,Whole Blood 185 mg/dL (75-99)
[2018-09-20] MEDS: INSULIN ASPART 100 UNIT/ML 1 ML 10 ML VIAL SQ SCH ×4 (06:33→21:55)
[2018-09-20] MEDS: PANTOPRAZOLE 40 MG TABLET PO SCH (06:33)
[2018-09-20 07:09] LABS: Anisocytosis Moderate; Basophils % (A) 0 %; Eosinophils % (A) 0 %; HCT 41.2 % (34.0-46.0); Hypochromasia Marked; Lymphocytes # (A) 0.8 k/uL (1.0-4.8); Lymphocytes % (A) 6 %; MCHC 29.1 g/dL (31.0-37.0); MCV 89.2 fL (80.0-100.0); Mean Platelet Volume 8.3; Monocytes # (A) 0.5 k/uL (0-1.0); Monocytes % (A) 4 %; Neutrophils # (A) 10.3 k/uL (1.3-7.7); Neutrophils % (A) 88 %; Platelet Count 194 k/uL (150-450); Poikilocytosis Moderate; RBC 4.62 m/uL (3.80-5.40); RDW 21.9 % (11.5-15.5); WBC 11.8 k/uL (3.8-10.6)
[2018-09-20] MEDS: IPRATROPIUM-ALBUTEROL 3 ML NEB INHALATION SCH ×4 (07:15→19:28)
[2018-09-20 07:29] LABS: Potassium 4.8 mmol/L (3.5-5.1)
[2018-09-20 07:30] LABS: Calcium 10.8 mg/dL (8.4-10.2)
[2018-09-20] MEDS: SYMBICORT 160-4.5 MCG INHALER INHALATION SCH ×2 (07:37→19:28)
[2018-09-20 07:44] LABS: ABG Base Excess 12.7 mmol/L; ABG Oxygen Saturation 95.2 % (94-97); ABG PH 7.23 (7.35-7.45); ABG PO2 79 mmHg (83-108); ABG TCO2 43 mmol/L (19-24)
[2018-09-20 07:51] LABS: ABG HCO3 40 mmol/L (21-25); ABG PCO2 97 mmHg (35-45)
[2018-09-20] MEDS: FUROSEMIDE 10 MG/ML 4 ML VIAL IV SCH ×2 (09:00→15:59)
[2018-09-20] MEDS: PIPERACILLIN-TAZOBACTAM 3.375 GM in SODIUM CHLORIDE 0.9% 100 ML IVPB SCH ×2 (09:00→16:40)
--- NOTE | 2018-09-20 09:22 | XR ---
EXAMINATION TYPE: XR chest 1V portable DATE OF EXAM: 09/20/2018 COMPARISON: 09/18/2018 HISTORY: Shortness of breath TECHNIQUE: Single frontal view of the chest is obtained. FINDINGS: Heart is enlarged and there is bilateral consolidation. Underlying venous congestion not e xcluded. Atherosclerotic change aorta. Interstitium stable. No pneumothorax. IMPRESSION: Cardiomegaly with bilateral consolidation. Interstitial edema in the differential diagno sis. Correlate clinically to exclude underlying pneumonia
[2018-09-20 10:06] LABS: Glucose,Whole Blood 158 mg/dL (75-99)
[2018-09-20] MEDS ORDERED: NALOXONE 0.4 MG/ML 1 ML VIAL IV PRN (10:20)
[2018-09-20 10:45] LABS: ABG Base Excess 14.5 mmol/L; ABG Oxygen Saturation 97.4 % (94-97); ABG PH 7.29 (7.35-7.45); ABG PO2 88 mmHg (83-108); ABG TCO2 44 mmol/L (19-24)
[2018-09-20 10:47] LABS: ABG HCO3 41 mmol/L (21-25); ABG PCO2 85 mmHg (35-45)
[2018-09-20 11:13] LABS: Magnesium 2.6 mg/dL (1.6-2.3); Phosphorus 4.4 mg/dL (2.5-4.5)
[2018-09-20] MEDS: DILTIAZEM ORAL 30 MG TAB PO SCH ×2 (11:32→21:07)
[2018-09-20] MEDS: METOPROLOL TARTRATE 50 MG TAB PO SCH ×2 (11:32→21:06)
[2018-09-20] MEDS: APIXABAN 5 MG TAB PO SCH ×2 (11:32→21:06)
[2018-09-20] MEDS: SPIRONOLACTONE 25 MG TAB PO SCH (11:37)
[2018-09-20 12:11] LABS: Glucose,Whole Blood 123 mg/dL (75-99)
--- NOTE | 2018-09-20 12:38 | P.PN ---
Subjective Progress Note Date: 09/20/18 Principal diagnosis: Acute on chronic hypercapnic and hypoxic respiratory failure secondary to acute cellulitis of the lower extremity This is a 68-year-old female patient, morbidly obese presented to the hospital because of diminished level of consciousness and cellulitis of the lower extremity. The patient developed a large vesicle over the pretibial area and the right lower extremity and ultimately the vesicle pops and the patient had a large erythematous patch in the right lower extremity at the site of the previous vesicle with skin irregularity and ulceration. The patient has chronic lower extremity edema bilaterally. No reported fever or chills. Nevertheless the patient was becoming more lethargic. She came into the emergency department the patient was found to be hypoxic. Her initial pulse ox was in the mid/low 80s. The patient was placed immediately on BiPAP at a car to the patient is on BiPAP at a pressure of over 5 cm of water. He is also on a FiO2 of 50%. The chest x-ray is limited because of her body habitus. Nevertheless, the patient has no cough or sputum production. No reported chest pain. No sputum production. She was also started on accommodation of Rocephin and Zithromax suspecting an underlying pneumonia and she was admitted to the hospital. I saw this patient and I also talked to her daughter at the bedside. The concern is for now right lower extremity cellulitis. Started this patient IV Zosyn pending infectious disease consultation. I reviewed the blood gases from this morning and the results are as mentioned above. Despite ongoing diminished level of consciousness, the patient is arousable and she can follow commands and answer questions appropriately. My last encounter with this patient was in the office and at that time I checked her BiPAP machine which is set at a pressure of 14/7 cm of water. She was extremely compliant and her AHI while on treatment was less than 5 consistent with successful BiPAP therapy. The patient has a stable renal function with a creatinine of 1.25 and a time of admission. Her white cell count is 11.1. She has also station to pressure ulcer in her left buttocks. No aspiration. No chest pain. She is moving all 4 extremities without any limitation. On 09/20/2018 patient was noted to be somnolent, hard to arouse, repeat blood gas was obtained, and showed pO2 of 79, pCO2 of 97, and pH of 7.23, consistent with an acute on chronic hypercapnic respiratory failure. On clinical exam patient was quite somnolent, stuporous, decision was made to move the patient is a intensive care unit, she continues on IV diuretics, and 40 mg every 8 hours , her weight actually increased by 1.3 kg in the last 24 hours, patient did not have an indwelling catheter, and has been incontinent of large amount of urine, says hard to estimate. Lung sounds are extremely diminished, her tidal volume is 325 ML on the BiPAP support. BiPAP settings of 16/5, and FiO2 of 40%. X- ray was obtained, and showed cardiomegaly with bilateral consolidation, interstitial edema. Patient was seen in consultation by infectious disease service, she is getting local wound care to the lower extremity cellulitis, she is on antibiotic coverage in the form of Zosyn. Wound cultures are positive for presumptive staph aureus, and gram-negative bacilli, cultures are pending. Repeat blood gases in the intensive care unit showed him pO2 of 88, pCO2 of 85, and pH of 7.29, improving blood gases, patient is started to a more alert, and responsive. Sucks is 96% on FiO2 of 40%, she is afebrile, patient is atrial fibrillation, patient has history of chronic A. fib, she is anticoagulated with the Apixaban. Objective - Vital Signs Vital signs: Vital Signs Temp 96.7 F L 09/20/18 11:00 Pulse 82 09/20/18 12:00 Resp 21 09/20/18 12:00 BP 100/78 09/20/18 12:00 Pulse Ox 96 09/20/18 12:00 Intake & Output 09/19/18 09/20/18 09/20/18 18:59 06:59 18:59 Intake Total 684 220 Output Total 400 590 800 Balance 284 -370 -800 Weight 182 kg 183.5 kg Intake: IV 100 Piperacillin-Tazobactam 3 100 .375 gm In Sodium Chloride 0.9% 100 ml @ 25 mls/hr IVPB Q8HR [facility] Rx# :[id number] Oral 684 120 Output: Urine 400 590 800 Other: Voiding Method Indwelling Catheter # Voids 2 # Bowel Movements 1 - Exam Gen: This is a 68-year-old morbidly obese female. The patient is lethargic but starting to become more arousable. She is able to follow commands. No focal neurological deficit at this point. She is able to tolerate a full face BiPAP mask treatment without any major limitation. HEENT: Head is atraumatic, normocephalic. Pupils equal, round. Sclerae is anicteric. Conjunctiva slightly pale. NECK: Supple. No JVD. No lymphadenopathy. No thyromegaly. LUNGS: Diminished bilaterally No wheezes or rhonchi. No intercostal retractions. HEART: Irregularly irregular rate and rhythm. No murmur. Distant heart sounds. ABDOMEN: Soft. Bowel sounds are present. No masses. No tenderness. No redness under her abdominal fold. EXTREMITIES: 3+ bilateral pedal edema. Large dressing in place on the right lower extremity which was not removed for evaluation and there is a that skin overlying the anterior parker in the right lower extremity related to a previous burst of a vesicle. The underlying skin is quite erythematous and red and there is a very clear demarcation line which linares cellulitis. NEUROLOGICAL: Patient is awake, alert and oriented x3. Generalized weakness noted. Somnolent if left unstimulated. No focal neurological deficits. - Labs CBC & Chem 7: 09/20/18 06:29 09/20/18 06:29 Labs: Abnormal Lab Results - Last 24 Hours (Table) 09/19/18 09/19/18 09/19/18 Range/Units 14:44 14:44 15:54 WBC (3.8-10.6) k/uL MCHC 30.0 L (31.0-37.0) g/dL RDW 22.3 H (11.5-15.5) % Neutrophils # (1.3-7.7) k/uL Lymphocytes # (1.0-4.8) k/uL ABG pH 7.25 L (7.35-7.45) ABG pCO2 92 H* (35-45) mmHg ABG pO2 (83-108) mmHg ABG HCO3 41 H* (21-25) mmol/L ABG Total CO2 44 H (19-24) mmol/L ABG O2 Saturation (94-97) % Chloride 93 L (98-107) mmol/L Carbon Dioxide 33 H (22-30) mmol/L BUN 79 H (7-17) mg/dL Creatinine 1.10 H (0.52-1.04) mg/dL Glucose 205 H (74-99) mg/dL POC Glucose (mg/dL) (75-99) mg/dL Calcium 10.5 H (8.4-10.2) mg/dL Magnesium (1.6-2.3) mg/dL 09/19/18 09/19/18 09/20/18 Range/Units 16:20 21:01 05:41 WBC (3.8-10.6) k/uL MCHC (31.0-37.0) g/dL RDW (11.5-15.5) % Neutrophils # (1.3-7.7) k/uL Lymphocytes # (1.0-4.8) k/uL ABG pH (7.35-7.45) ABG pCO2 (35-45) mmHg ABG pO2 (83-108) mmHg ABG HCO3 (21-25) mmol/L ABG Total CO2 (19-24) mmol/L ABG O2 Saturation (94-97) % Chloride (98-107) mmol/L Carbon Dioxide (22-30) mmol/L BUN (7-17) mg/dL Creatinine (0.52-1.04) mg/dL Glucose (74-99) mg/dL POC Glucose (mg/dL) 257 H 213 H 185 H (75-99) mg/dL Calcium (8.4-10.2) mg/dL Magnesium (1.6-2.3) mg/dL 09/20/18 09/20/18 09/20/18 Range/Units 06:29 06:29 06:29 WBC 11.8 H (3.8-10.6) k/uL MCHC 29.1 L (31.0-37.0) g/dL RDW 21.9 H (11.5-15.5) % Neutrophils # 10.3 H (1.3-7.7) k/uL Lymphocytes # 0.8 L (1.0-4.8) k/uL ABG pH (7.35-7.45) ABG pCO2 (35-45) mmHg ABG pO2 (83-108) mmHg ABG HCO3 (21-25) mmol/L ABG Total CO2 (19-24) mmol/L ABG O2 Saturation (94-97) % Chloride 94 L (98-107) mmol/L Carbon Dioxide 37 H (22-30) mmol/L BUN 92 H (7-17) mg/dL Creatinine 1.23 H (0.52-1.04) mg/dL Glucose 171 H (74-99) mg/dL POC Glucose (mg/dL) (75-99) mg/dL Calcium 10.8 H (8.4-10.2) mg/dL Magnesium 2.6 H (1.6-2.3) mg/dL 09/20/18 09/20/18 09/20/18 Range/Units 07:42 09:54 10:43 WBC (3.8-10.6) k/uL MCHC (31.0-37.0) g/dL RDW (11.5-15.5) % Neutrophils # (1.3-7.7) k/uL Lymphocytes # (1.0-4.8) k/uL ABG pH 7.23 L 7.29 L (7.35-7.45) ABG pCO2 97 H* 85 H* (35-45) mmHg ABG pO2 79 L (83-108) mmHg ABG HCO3 40 H* 41 H* (21-25) mmol/L ABG Total CO2 43 H 44 H (19-24) mmol/L ABG O2 Saturation 97.4 H (94-97) % Chloride (98-107) mmol/L Carbon Dioxide (22-30) mmol/L BUN (7-17) mg/dL Creatinine (0.52-1.04) mg/dL Glucose (74-99) mg/dL POC Glucose (mg/dL) 158 H (75-99) mg/dL Calcium (8.4-10.2) mg/dL Magnesium (1.6-2.3) mg/dL 09/20/18 Range/Units 11:59 WBC (3.8-10.6) k/uL MCHC (31.0-37.0) g/dL RDW (11.5-15.5) % Neutrophils # (1.3-7.7) k/uL Lymphocytes # (1.0-4.8) k/uL ABG pH (7.35-7.45) ABG pCO2 (35-45) mmHg ABG pO2 (83-108) mmHg ABG HCO3 (21-25) mmol/L ABG Total CO2 (19-24) mmol/L ABG O2 Saturation (94-97) % Chloride (98-107) mmol/L Carbon Dioxide (22-30) mmol/L BUN (7-17) mg/dL Creatinine (0.52-1.04) mg/dL Glucose (74-99) mg/dL POC Glucose (mg/dL) 123 H (75-99) mg/dL Calcium (8.4-10.2) mg/dL Magnesium (1.6-2.3) mg/dL Microbiology - Last 24 Hours (Table) 09/19/18 12:45 Gram Stain - Preliminary Leg - Right Wound Culture - Preliminary Presumptive Staph aureus Gram Neg Bacilli 09/19/18 17:00 Urine Culture - Preliminary Urine,Voided Assessment and Plan Plan: 1 acute cellulitis of the lower extremity in addition to a superficial ulceration secondary to previous edema/fluid seeping from the skin surface 2 acute on chronic hypoxic and hypercapnic respiratory failure secondary to above. There may be a mild component of fluid overload based on the chest x- ray finding over the chest x-ray findings are somewhat limited because of her morbidly obese body habitus. Currently she is on a BiPAP at a pressure of 16/5 cm of water with an FiO2 of 50%. Chest x-ray still showing a component of interstitial edema, venous congestion, fluid overload 3 chronic diastolic heart failure 4 obesity hypoventilation syndrome 5 obstructive sleep apnea 6 severe restrictive lung disease secondary to morbid obesity 7 morbidly obese due to BMI of 68.7 8 chronic atrial fibrillation 9 hypertension 10 stage II chronic kidney disease 11 acid reflux 12 very poor baseline performance and functional status secondary to above- mentioned comorbidities. 13 recurrent cellulites of the lower extremities bilaterally Plan: Patient has been transferred to the intensive care unit for closer monitoring, blood gas showed improvement, today's chest x-ray has been reviewed by Dr. Bazan, showed a component of interstitial edema and pulmonary vascular congestion, continue with IV diuretics, to become more arousable. Continue with BiPAP support for now, patient may be trialed on nasal cannula for meals. Continue current antibiotic coverage, awaiting the final results of the wound cultures. Patient is afebrile, she is anticoagulated on Eliquis. Continue to follow I performed a history & physical examination of the patient and discussed their management with my nurse practitioner, Maru Meyers. I reviewed the nurse practitioner's note and agree with the documented findings and plan of care. Lung sounds are diminished. The findings and the impression was discussed with the patient. I attest to the documentation by the nurse practitioner. Time with Patient: Greater than 30
--- NOTE | 2018-09-20 14:18 | PN ---
PROGRESS NOTE DATE OF SERVICE: 09/20/2018 This is a 68-year-old woman who was admitted with shortness of breath and acute respiratory failure with a combination of COPD and CHF. Patient also had right leg cellulitis, also. The patient is on broad spectrum IV antibiotics. Patient has significant acute respiratory acidosis at this time. Patient was transferred to ICU and BiPAP was initiated by Dr. Bazan. The patient is closely monitored at this time. Patient on broad-spectrum IV antibiotics. Cultures are showing presumptive Staph aureus and gram-negative bacilli. PAST MEDICAL HISTORY: Reviewed. REVIEW OF SYSTEMS: CARDIOVASCULAR: As mentioned earlier. GI: Negative. : As mentioned earlier. NERVOUS SYSTEM: As mentioned earlier. CURRENT MEDICATIONS ARE: 1. Tylenol 650 q.6 p.r.n. 2. [place] 5 mg q.a.m. 3. DuoNeb q.i.d. and p.r.n. 4. Eliquis 5 mg b.i.d. 5. Symbicort. 6. Cardizem. 7. Lasix 40 mg IV q.8. 8. NovoLog. 9. Lopressor 100 mg p.o. b.i.d. 10.Narcan p.r.n. 11.Protonix. 12.Zosyn. 13.Silver sulfadiazine. 14.Aldactone. PHYSICAL EXAM: Patient is alert and oriented x3. Pulse is 82, blood pressure 100/70, respiration 21, temperature 98.7, pulse ox 96% on 40% FiO2 bypass. HEENT: Conjunctivae normal. Oral mucosa moist. Neck is no jugular venous distention. No lymph node enlargement. CARDIOVASCULAR SYSTEM: S1, S2, muffled. RESPIRATORY: Breath sounds are diminished at the bases, bilateral scattered rhonchi. Breathing efforts are markedly increased. ABDOMEN: Soft, obese, nontender. LEGS: Right leg cellulitis. NERVOUS SYSTEM: No focal deficits. LAB STUDIES: WBC is 7.8, hemoglobin is 12 and the ABG is 7.29. Other labs are noted. Creatinine 1.23. ASSESSMENT: 1. Shortness with multifactorial with acute hypoxic hypercarbic respiratory failure with secondary to chronic obstructive pulmonary disease acute exacerbation as well as CHF exacerbation acute on chronic diastolic dysfunction. 2. Significant right lower lobe blisters, cellulitis with possible sepsis. 3. Respiratory lung disease secondary to morbid obesity. 4. Acute respiratory acidosis. 5. Increased creatinine with chronic kidney disease stage III. 6. History of atrial fibrillation, proximal. 7. History of asthma. 8. History of congestive heart failure. 9. History of chronic obstructive pulmonary disease. 10.Gastroesophageal reflux disease. 11.History of gastrointestinal bleed. 12.Hypertension. 13.History of pneumonia. 14.Morbid obesity with body mass index of 68.9. 15.History of chronic hypoxic respiratory failure. 16.Venous stasis ulcers, peptic ulcer disease, history of diverticulitis, history of Clostridium difficile. 17.Remote history of nicotine dependence. RECOMMENDATION: Continue current management and symptomatic treatment. Otherwise, at this time I would recommend antibiotics, bronchodilators, BiPAP. Closely follow with Dr. Bazan and as well as Infectious Disease. Guarded prognosis. Further recommendations to follow. See orders for details. The prognosis is guarded. Will wait for the final cultures and continue local treatment for now of steroids, bronchodilators, will monitor fluid and electrolytes balance closely. MMODL / IJN: [id number] /
[2018-09-20] MEDS: ACETAMINOPHEN TAB 325 MG TAB PO PRN (15:56)
[2018-09-20 17:07] LABS: Glucose,Whole Blood 200 mg/dL (75-99)
[2018-09-20 18:40] LABS: ABG Base Excess 17.7 mmol/L; ABG Oxygen Saturation 92.3 % (94-97); ABG PH 7.31 (7.35-7.45); ABG PO2 68 mmHg (83-108); ABG TCO2 47 mmol/L (19-24)
[2018-09-20 18:55] LABS: ABG HCO3 44 mmol/L (21-25); ABG PCO2 87 mmHg (35-45)
[2018-09-20 21:27] LABS: Glucose,Whole Blood 174 mg/dL (75-99)
[2018-09-21] MEDS: FUROSEMIDE 10 MG/ML 4 ML VIAL IV SCH ×4 (00:08→21:18)
[2018-09-21] MEDS: PIPERACILLIN-TAZOBACTAM 3.375 GM in SODIUM CHLORIDE 0.9% 100 ML IVPB SCH ×3 (00:08→15:41)
[2018-09-21] MEDS: ACETAMINOPHEN TAB 325 MG TAB PO PRN ×3 (00:21→15:41)
[2018-09-21 04:37] LABS: Anisocytosis Moderate; Basophils % (A) 0 %; Eosinophils % (A) 0 %; HCT 38.6 % (34.0-46.0); HGB 11.5 gm/dL (11.4-16.0); Hypochromasia Marked; Lymphocytes # (A) 0.8 k/uL (1.0-4.8); Lymphocytes % (A) 8 %; MCH 26.5 pg (25.0-35.0); MCHC 29.7 g/dL (31.0-37.0); MCV 89.1 fL (80.0-100.0); Monocytes # (A) 0.7 k/uL (0-1.0); Monocytes % (A) 7 %; Neutrophils # (A) 8.5 k/uL (1.3-7.7); Neutrophils % (A) 83 %; Platelet Count 209 k/uL (150-450); Poikilocytosis Moderate; RBC 4.34 m/uL (3.80-5.40); RDW 22.2 % (11.5-15.5); WBC 10.3 k/uL (3.8-10.6)
[2018-09-21 04:45] LABS: Calcium 10.4 mg/dL (8.4-10.2); Magnesium 2.6 mg/dL (1.6-2.3); Phosphorus 3.3 mg/dL (2.5-4.5); Potassium 4.9 mmol/L (3.5-5.1)
[2018-09-21 07:42] LABS: Glucose,Whole Blood 122 mg/dL (75-99)
[2018-09-21] MEDS: INSULIN ASPART 100 UNIT/ML 1 ML 10 ML VIAL SQ SCH ×5 (07:53→21:23)
[2018-09-21] MEDS: PANTOPRAZOLE 40 MG TABLET PO SCH (07:56)
[2018-09-21] MEDS: IPRATROPIUM-ALBUTEROL 3 ML NEB INHALATION SCH ×4 (08:15→19:47)
[2018-09-21] MEDS: SPIRONOLACTONE 25 MG TAB PO SCH (08:22)
[2018-09-21] MEDS: METOPROLOL TARTRATE 50 MG TAB PO SCH ×2 (08:22→21:18)
[2018-09-21] MEDS: APIXABAN 5 MG TAB PO SCH ×2 (08:22→21:18)
--- NOTE | 2018-09-21 08:23 | XR ---
EXAMINATION TYPE: XR chest 1V DATE OF EXAM: 09/21/2018 COMPARISON: 09/20/2018 HISTORY: 68-year-old female shortness of breath TECHNIQUE: Single frontal view of the chest is obtained. FINDINGS: Heart remains mild to moderately enlarged. Mild diffuse interstitial prominence. Retrocardiac opacity , suspect underlying effusion. Some mild patchy bibasilar densities remain. IMPRESSION: 1. Relatively stable appearance to the mild to moderate cardiomegaly and mild interstitial changes. C orrelate for pulmonary vascular congestion. 2. Left base is underpenetrated. Suspect underlying pleural effusion. 3. Patchy bibasilar atelectasis/infiltrates also persist.
[2018-09-21] MEDS: SYMBICORT 160-4.5 MCG INHALER INHALATION SCH ×2 (08:25→19:48)
[2018-09-21] MEDS: DILTIAZEM ORAL 30 MG TAB PO SCH ×2 (09:33→21:17)
--- NOTE | 2018-09-21 10:14 | P.CRDCN ---
History of Present Illness Consult date: 09/21/18 History of present illness: This is a 68-year-old female with history of morbid obesity and history of diastolic congestive heart failure and also severe chronic hypoxic respiratory failure, was brought to the hospital with complaints of altered mental status and blistering of her both legs with edema and cellulitis. Patient's previous echocardiogram showed normal LV function. Patient denied any chest pain, fever or chills. Patient is a awake and follows and answers questions. Most of the information is gathered from daughter. She was was admitted between intensive care unit and subsequently transferred to stepdown unit. Apparently patient developed more respiratory failure and transferred back to intensive care unit. She denies any chest pain at this time. She is being treated with BiPAP, antibiotics, and also diuretics. Her BUN is up to 90. Creatinine is about 2.1. Patient's ABG shows respiratory acidosis. Most of her symptoms seem to be related to her pulmonary issues, obesity, and evidence of some diastolic CHF. Her proBNP is elevated. I'll continue current medical therapy and follow- up her BNP closely. Prognosis is guarded. The patient also has history of chronic atrial fibrillation. She is on common initial beta donna and percussion channel donna with controlled heart rate. She is also on anticoagulation therapy Review of Systems As per the chart Past Medical History Past Medical History: Atrial Fibrillation, Asthma, Heart Failure, COPD, GERD/ Reflux, GI Bleed, Hypertension, Pneumonia, Renal Disease Additional Past Medical History / Comment(s): Morbid obesity, chronic hypoxic respiratory failure, chronic hypercapnic respiratory failure, CHF with diastolic dysfunction, borderline pulmonary hypertension, obstructive sleep apnea, breast hypoventilation syndrome, chronic atrial fibrillation, chronic lower extremity edema, venous stasis, ulceration, chronic microcytic anemia, history of peptic ulcer disease, history of diverticulosis and previous history of diverticulitis, previous history of ventilator dependent respiratory failure requiring intubation 2018, previous history of E. coli urinary tract infection, previous history of C. 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 has hospital bed, shower chair, manpreet lift , w/c, walker. Smoked 1 pack per day and quit smoking in 2013 Smoking Status: Former smoker Past Alcohol Use History: None Reported Additional Past Alcohol Use History / Comment(s): started smoking in 1967 used to smoke 1 ppd, quit Past Drug Use History: None Reported - Past Family History Father Family Medical History: Eye Disorder, Osteoarthritis (OA) Additional Family Medical History / Comment(s): at age 92 from old age, had macular degeneration Mother Family Medical History: Coronary Artery Disease (CAD), Diabetes Mellitus, Hypertension, Renal Disease Additional Family Medical History / Comment(s): cabg, dialysis Medications and Allergies Home Medications Medication Instructions Recorded Confirmed Type Apixaban [Eliquis] 5 mg PO BID #60 tab 03/31/18 09/18/18 Rx Budesonide-Formot 160-4.5 Mcg 2 puff INHALATION RT-BID 05/31/18 09/18/18 History [Symbicort 160-4.5 Mcg Inhaler] Diltiazem HCl 90 mg PO BID 05/31/18 09/18/18 History Spironolactone [Aldactone] 25 mg PO DAILY 05/31/18 09/18/18 History Furosemide [Lasix] 80 mg PO QAM 08/25/18 09/18/18 History Metoprolol Tartrate [Lopressor] 100 mg PO BID 08/25/18 09/18/18 History Cephalexin [Keflex] 500 mg PO Q6HR 5 Days #20 cap 09/15/18 09/18/18 Rx Furosemide [Lasix] 40 mg PO HS 09/18/18 09/18/18 History Allergies Allergy/AdvReac Type Severity Reaction Status Date / Time No Known Allergies Allergy Verified 09/15/18 13:50 Physical Exam Vitals: Vital Signs Temp Pulse Resp BP Pulse Ox 09/21/18 10:00 79 14 111/79 95 09/21/18 09:00 101 H 26 H 105/69 94 L 12/05/18 08:24 107 H 09/21/18 08:15 101 H 09/21/18 08:02 26 H 09/21/18 08:00 98.0 F 112 H 26 H 115/78 91 L 09/21/18 07:00 79 30 H 106/76 93 L 09/21/18 06:00 78 24 106/76 94 L 09/21/18 05:00 85 28 H 114/75 92 L 09/21/18 04:00 81 28 H 112/77 92 L 09/21/18 03:00 76 18 113/79 93 L 09/21/18 02:00 70 46 H 101/68 92 L 09/21/18 01:00 80 32 H 91/51 92 L 09/21/18 00:00 98.2 F 107 H 24 110/77 92 L 09/20/18 23:42 80 26 H 108/77 90 L 09/20/18 23:00 98 15 112/80 90 L 09/20/18 22:00 105 H 24 134/91 90 L 09/20/18 21:00 98.4 F 106 H 28 H 121/88 94 L 09/20/18 20:00 94 17 119/89 93 L 09/20/18 19:37 92 09/20/18 19:29 90 09/20/18 19:00 91 17 119/89 92 L 09/20/18 18:00 96 23 119/89 92 L 09/20/18 17:00 94 26 H 119/89 94 L 09/20/18 16:00 97.1 F L 92 26 H 118/89 93 L 09/20/18 15:53 112 H 09/20/18 15:44 111 H 09/20/18 15:00 78 24 106/72 92 L 09/20/18 14:00 82 24 100/67 91 L 09/20/18 13:00 64 24 94/57 89 L 09/20/18 12:00 82 21 100/78 96 09/20/18 11:28 102 H 09/20/18 11:16 100 09/20/18 11:00 96.7 F L 106 H 21 96/62 96 Intake and Output 09/20/18 09/21/18 09/21/18 22:59 06:59 14:59 Intake Total 680 480 140 Output Total 1346 825 405 Balance -236 -167 -044 Intake: IV 180 180 140 0.9 Sodium Chloride 80 80 40 Piperacillin-Tazobactam 3 100 100 100 .375 gm In Sodium Chloride 0.9% 100 ml @ 25 mls/hr IVPB Q8HR [facility] Rx# :[id number] Oral 500 300 Output: Urine 1345 825 405 Stool 1 Other: Voiding Method Indwelling Catheter Indwelling Catheter Indwelling Catheter GENERAL EXAM: Patient is alert and follows questions and nonsustained. Doesn't appear to be in acute distress at this time. Has BiPAP machine HEENT: Normocephalic. NECK: No masses, no nuchal rigidity. CHEST: No chest wall deformity. LUNGS: Diminished air exchange HEART: S1 and S2 normal. Irregular heart rhythm. Distant heart sounds ABDOMEN: Soft. SKIN: No rashes CENTRAL NERVOUS SYSTEM: No focal deficits. EXTREMITIES: Both extremes are wrapped. Results 09/21/18 04:19 09/21/18 04:19 CBC 09/21/18 Range/Units 04:19 WBC 10.3 (3.8-10.6) k/uL RBC 4.34 (3.80-5.40) m/uL Hgb 11.5 (11.4-16.0) gm/dL Hct 38.6 (34.0-46.0) % Plt Count 209 (150-450) k/uL Comprehensive Metabolic Panel 09/21/18 Range/Units 04:19 Sodium 138 (137-145) mmol/L Potassium 4.9 (3.5-5.1) mmol/L Chloride 92 L (98-107) mmol/L Carbon Dioxide 39 H (22-30) mmol/L BUN 97 H (7-17) mg/dL Creatinine 1.14 H (0.52-1.04) mg/dL Glucose 147 H (74-99) mg/dL Calcium 10.4 H (8.4-10.2) mg/dL Current Medications Generic Name Dose Route Start Last Admin Trade Name Freq PRN Reason Stop Dose Admin Acetaminophen 650 mg 09/18/18 23:46 09/21/18 07:55 Tylenol Tab PO 650 mg Q6HR PRN Administration Fever and/ or Pain Hydrocodone Bitart/Acetaminophen 1 each 09/19/18 14:50 [place] 5-325 PO Q6HR PRN Pain Albuterol/Ipratropium 3 ml 09/18/18 20:00 09/21/18 08:15 Duoneb 0.5 Mg-3 Mg/3 Ml Soln INHALATION 3 ml RT-QID [facility] Administration Apixaban 5 mg 09/18/18 21:00 09/21/18 08:22 Eliquis PO 5 mg BID [facility] Administration Budesonide/Formoterol Fumarate 2 puff 09/19/18 08:00 09/21/18 08:25 Symbicort 160-4.5 Mcg Inhaler INHALATION Not Given RT-BID [facility] Diltiazem HCl 90 mg 09/18/18 21:00 09/21/18 09:33 Cardizem Oral PO 90 mg BID [facility] Administration Furosemide 40 mg 09/21/18 09:00 09/21/18 09:12 Lasix IV Not Given Q12HR [facility] Piperacillin Sod/Tazobactam 100 mls @ 25 mls/hr 09/19/18 16:00 09/21/18 08:22 Sod 3.375 gm/ Sodium Chloride IVPB 25 mls/hr Q8HR [facility] Administration Insulin Aspart 0 unit 09/19/18 07:30 09/21/18 07:53 Novolog SQ Not Given ACHS [facility] Protocol Metoprolol Tartrate 100 mg 09/18/18 21:00 09/21/18 08:22 Lopressor PO 100 mg BID [facility] Administration Naloxone HCl 0.2 mg 09/20/18 10:20 Narcan IV Q2M PRN Opioid Reversal Pantoprazole Sodium 40 mg 09/20/18 07:30 09/21/18 07:56 Protonix PO 40 mg AC-BRKFST [facility] Administration Silver Sulfadiazine 1 applic 09/19/18 22:00 09/21/18 08:23 Silvadene Cream TOPICAL 1 applic BID [facility] Administration Spironolactone 25 mg 09/19/18 09:00 09/21/18 08:22 Aldactone PO 25 mg DAILY [facility] Administration Intake and Output 09/20/18 09/21/18 09/21/18 22:59 06:59 14:59 Intake Total 680 480 140 Output Total 1346 825 405 Balance -884 -073 -204 Intake: IV 180 180 140 0.9 Sodium Chloride 80 80 40 Piperacillin-Tazobactam 3 100 100 100 .375 gm In Sodium Chloride 0.9% 100 ml @ 25 mls/hr IVPB Q8HR [facility] Rx# :[id number] Oral 500 300 Output: Urine 1345 825 405 Stool 1 Other: Voiding Method Indwelling Catheter Indwelling Catheter Indwelling Catheter 09/21/18 04:19 09/21/18 04:19 EKG Interpretations (text) Atrial fibrillation with controlled ventricular response Assessment and Plan (1) Acute on chronic diastolic CHF (congestive heart failure) Current Visit: Yes Status: Acute Code(s): I50.33 - ACUTE ON CHRONIC DIASTOLIC (CONGESTIVE) HEART FAILURE SNOMED Code(s): 466649593 (2) Acute respiratory failure with hypoxia and hypercarbia Current Visit: Yes Status: Acute Code(s): J96.01 - ACUTE RESPIRATORY FAILURE WITH HYPOXIA; J96.02 - ACUTE RESPIRATORY FAILURE WITH HYPERCAPNIA SNOMED Code(s): 318909602 (3) Bilateral lower leg cellulitis Current Visit: No Status: Acute Code(s): L03.116 - CELLULITIS OF LEFT LOWER LIMB; L03.115 - CELLULITIS OF RIGHT LOWER LIMB SNOMED Code(s): 605540746 (4) Chronic atrial fibrillation Current Visit: Yes Status: Acute Code(s): I48.2 - CHRONIC ATRIAL FIBRILLATION SNOMED Code(s): 219311219 Plan: We'll continue with current medical therapy with beta blockers, calcium channel blockers and IV Lasix. Continue the respirator therapies. Antibiotics to be continued. Prognosis is guarded
[2018-09-21 12:08] LABS: Glucose,Whole Blood 140 mg/dL (75-99)
--- NOTE | 2018-09-21 14:57 | P.PN ---
Subjective Progress Note Date: 09/21/18 Principal diagnosis: Acute on chronic hypercapnic and hypoxic respiratory failure secondary to acute cellulitis of the lower extremity This is a 68-year-old female patient, morbidly obese presented to the hospital because of diminished level of consciousness and cellulitis of the lower extremity. The patient developed a large vesicle over the pretibial area and the right lower extremity and ultimately the vesicle pops and the patient had a large erythematous patch in the right lower extremity at the site of the previous vesicle with skin irregularity and ulceration. The patient has chronic lower extremity edema bilaterally. No reported fever or chills. Nevertheless the patient was becoming more lethargic. She came into the emergency department the patient was found to be hypoxic. Her initial pulse ox was in the mid/low 80s. The patient was placed immediately on BiPAP at a car to the patient is on BiPAP at a pressure of over 5 cm of water. He is also on a FiO2 of 50%. The chest x-ray is limited because of her body habitus. Nevertheless, the patient has no cough or sputum production. No reported chest pain. No sputum production. She was also started on accommodation of Rocephin and Zithromax suspecting an underlying pneumonia and she was admitted to the hospital. I saw this patient and I also talked to her daughter at the bedside. The concern is for now right lower extremity cellulitis. Started this patient IV Zosyn pending infectious disease consultation. I reviewed the blood gases from this morning and the results are as mentioned above. Despite ongoing diminished level of consciousness, the patient is arousable and she can follow commands and answer questions appropriately. My last encounter with this patient was in the office and at that time I checked her BiPAP machine which is set at a pressure of 14/7 cm of water. She was extremely compliant and her AHI while on treatment was less than 5 consistent with successful BiPAP therapy. The patient has a stable renal function with a creatinine of 1.25 and a time of admission. Her white cell count is 11.1. She has also station to pressure ulcer in her left buttocks. No aspiration. No chest pain. She is moving all 4 extremities without any limitation. On 09/20/2018 patient was noted to be somnolent, hard to arouse, repeat blood gas was obtained, and showed pO2 of 79, pCO2 of 97, and pH of 7.23, consistent with an acute on chronic hypercapnic respiratory failure. On clinical exam patient was quite somnolent, stuporous, decision was made to move the patient is a intensive care unit, she continues on IV diuretics, and 40 mg every 8 hours , her weight actually increased by 1.3 kg in the last 24 hours, patient did not have an indwelling catheter, and has been incontinent of large amount of urine, says hard to estimate. Lung sounds are extremely diminished, her tidal volume is 325 ML on the BiPAP support. BiPAP settings of 16/5, and FiO2 of 40%. X- ray was obtained, and showed cardiomegaly with bilateral consolidation, interstitial edema. Patient was seen in consultation by infectious disease service, she is getting local wound care to the lower extremity cellulitis, she is on antibiotic coverage in the form of Zosyn. Wound cultures are positive for presumptive staph aureus, and gram-negative bacilli, cultures are pending. Repeat blood gases in the intensive care unit showed him pO2 of 88, pCO2 of 85, and pH of 7.29, improving blood gases, patient is started to a more alert, and responsive. Sucks is 96% on FiO2 of 40%, she is afebrile, patient is atrial fibrillation, patient has history of chronic A. fib, she is anticoagulated with the Apixaban. On 09/21/2018 patient seen in follow-up in the intensive care unit, she wore the BiPAP most of the day yesterday, and during the night, she was able to tolerate nasal cannula trials for meals yesterday. Today's exam: Patient is awake and alert, in no acute distress. Afebrile, hemodynamically stable, lung sounds are diminished, no rhonchi or wheezes, today's chest x-ray has been reviewed by Dr. Bazan, and showed improved volume status. She is diuresing , remains on Lasix 40 mg every 8 hours, and she is in -1956 mL over the last 24 hours. Denies any chest pain, she is receiving local wound care to the left leg cellulitis, and she is covered with Zosyn, ID service is following. Objective - Vital Signs Vital signs: Vital Signs Temp 97.3 F L 09/21/18 12:00 Pulse 95 09/21/18 14:00 Resp 19 09/21/18 14:05 BP 107/50 09/21/18 14:00 Pulse Ox 92 L 09/21/18 14:00 Intake & Output 09/20/18 09/21/18 09/21/18 18:59 06:59 18:59 Intake Total 170 1020 180 Output Total 1820 1326 740 Balance -1650 -306 -560 Weight 180.6 kg Intake: IV 170 220 180 0.9 Sodium Chloride 70 120 80 Piperacillin-Tazobactam 3 100 100 100 .375 gm In Sodium Chloride 0.9% 100 ml @ 25 mls/hr IVPB Q8HR [facility] Rx# :[id number] Oral 800 Output: Urine 1820 1325 740 Stool 1 Other: Voiding Method Indwelling Catheter Indwelling Catheter Indwelling Catheter # Bowel Movements 1 - Exam Gen: This is a 68-year-old morbidly obese female. The patient is awake, alert, on BiPAP support. She is able to follow commands. No focal neurological deficit at this point. She is able to tolerate a full face BiPAP mask treatment without any major limitation. HEENT: Head is atraumatic, normocephalic. Pupils equal, round. Sclerae is anicteric. Conjunctiva slightly pale. NECK: Supple. No JVD. No lymphadenopathy. No thyromegaly. LUNGS: Diminished bilaterally No wheezes or rhonchi. No intercostal retractions. HEART: Irregularly irregular rate and rhythm. No murmur. Distant heart sounds. ABDOMEN: Soft. Bowel sounds are present. No masses. No tenderness. No redness under her abdominal fold. EXTREMITIES: 3+ bilateral pedal edema. Large dressing in place on the right lower extremity which was not removed for evaluation and there is a that skin overlying the anterior parker in the right lower extremity related to a previous burst of a vesicle. The underlying skin is quite erythematous and red and there is a very clear demarcation line which linares cellulitis. NEUROLOGICAL: Patient is awake, alert and oriented x3. Generalized weakness noted. Somnolent if left unstimulated. No focal neurological deficits. - Labs CBC & Chem 7: 09/21/18 04:19 09/21/18 04:19 Labs: Abnormal Lab Results - Last 24 Hours (Table) 09/20/18 09/20/18 09/20/18 Range/Units 16:56 18:35 21:15 MCHC (31.0-37.0) g/dL RDW (11.5-15.5) % Neutrophils # (1.3-7.7) k/uL Lymphocytes # (1.0-4.8) k/uL ABG pH 7.31 L (7.35-7.45) ABG pCO2 87 H* (35-45) mmHg ABG pO2 68 L (83-108) mmHg ABG HCO3 44 H* (21-25) mmol/L ABG Total CO2 47 H (19-24) mmol/L ABG O2 Saturation 92.3 L (94-97) % Chloride (98-107) mmol/L Carbon Dioxide (22-30) mmol/L BUN (7-17) mg/dL Creatinine (0.52-1.04) mg/dL Glucose (74-99) mg/dL POC Glucose (mg/dL) 200 H 174 H (75-99) mg/dL Calcium (8.4-10.2) mg/dL Magnesium (1.6-2.3) mg/dL 09/21/18 09/21/18 09/21/18 Range/Units 04:19 04:19 07:30 MCHC 29.7 L (31.0-37.0) g/dL RDW 22.2 H (11.5-15.5) % Neutrophils # 8.5 H (1.3-7.7) k/uL Lymphocytes # 0.8 L (1.0-4.8) k/uL ABG pH (7.35-7.45) ABG pCO2 (35-45) mmHg ABG pO2 (83-108) mmHg ABG HCO3 (21-25) mmol/L ABG Total CO2 (19-24) mmol/L ABG O2 Saturation (94-97) % Chloride 92 L (98-107) mmol/L Carbon Dioxide 39 H (22-30) mmol/L BUN 97 H (7-17) mg/dL Creatinine 1.14 H (0.52-1.04) mg/dL Glucose 147 H (74-99) mg/dL POC Glucose (mg/dL) 122 H (75-99) mg/dL Calcium 10.4 H (8.4-10.2) mg/dL Magnesium 2.6 H (1.6-2.3) mg/dL 09/21/18 Range/Units 11:56 MCHC (31.0-37.0) g/dL RDW (11.5-15.5) % Neutrophils # (1.3-7.7) k/uL Lymphocytes # (1.0-4.8) k/uL ABG pH (7.35-7.45) ABG pCO2 (35-45) mmHg ABG pO2 (83-108) mmHg ABG HCO3 (21-25) mmol/L ABG Total CO2 (19-24) mmol/L ABG O2 Saturation (94-97) % Chloride (98-107) mmol/L Carbon Dioxide (22-30) mmol/L BUN (7-17) mg/dL Creatinine (0.52-1.04) mg/dL Glucose (74-99) mg/dL POC Glucose (mg/dL) 140 H (75-99) mg/dL Calcium (8.4-10.2) mg/dL Magnesium (1.6-2.3) mg/dL Microbiology - Last 24 Hours (Table) 09/19/18 12:45 Gram Stain - Preliminary Leg - Right Wound Culture - Preliminary Presumptive MRSA Pseudomonas aeruginosa 09/19/18 17:00 Urine Culture - Preliminary Urine,Voided Group D Enterococcus Gram Neg Bacilli 09/19/18 15:26 Blood Culture - Preliminary Blood No Growth after 24 hours Assessment and Plan Plan: 1 acute cellulitis of the lower extremity in addition to a superficial ulceration secondary to previous edema/fluid seeping from the skin surface 2 acute on chronic hypoxic and hypercapnic respiratory failure secondary to above. There may be a mild component of fluid overload based on the chest x- ray finding over the chest x-ray findings are somewhat limited because of her morbidly obese body habitus. Currently she is on a BiPAP at a pressure of 16/5 cm of water with an FiO2 of 50%. Chest x-ray still showing a component of interstitial edema, venous congestion, fluid overload 3 chronic diastolic heart failure 4 obesity hypoventilation syndrome 5 obstructive sleep apnea 6 severe restrictive lung disease secondary to morbid obesity 7 morbidly obese due to BMI of 68.7 8 chronic atrial fibrillation 9 hypertension 10 stage II chronic kidney disease 11 acid reflux 12 very poor baseline performance and functional status secondary to above- mentioned comorbidities. 13 recurrent cellulites of the lower extremities bilaterally Plan: Continue IV diuretics for another 24 hours, decrease the dose to 40 mg twice a day, patient is diuresing, chest x-ray showed improvement in the volume status, patient is more awake, following commands, and is able to tolerate nasal cannula trials for meals. Continue BiPAP support at bedtime and as needed during the day, hematocrit coverage per ID service, local wound care per ID service. Hemodynamically patient remains stable, she is on oral anticoagulation , for her underlying A. fib. Fever no chills, no worsening shortness of breath or chest pain. We'll continue to follow. I performed a history & physical examination of the patient and discussed their management with my nurse practitioner, Maru Meyers. I reviewed the nurse practitioner's note and agree with the documented findings and plan of care. Lung sounds are diminished. The findings and the impression was discussed with the patient. I attest to the documentation by the nurse practitioner. Time with Patient: Greater than 30
[2018-09-21 17:23] LABS: Glucose,Whole Blood 131 mg/dL (75-99)
--- NOTE | 2018-09-21 18:51 | P.PN ---
Subjective this is a pleasant 68 yo F [facility] pmh of asthma/copd, a fib on eliquis, diastolic CHF, GERD, GI Bleed, hypertension who presents with dyepsnea, not relieved by BiPAP at home, she was recently visited ED for lower extremity rash. pt was admitted to ICU for acute on chronic hypoxic resp failure with some elements of fluid overload radha on cxr. pt has positive urine culture for enterococcus and gram negative bacilli. and wound culture that is positive for MRSA and pseudomonas. he mild leukocytosis on admission was resolved. creatinine 1.14. sugar is controlled. REVIEW OF SYSTEMS: CONSTITUTIONAL: No fever, no malaise, no fatigue. HEENT: No recent visual problems or hearing problems. Denied any sore throat. CARDIOVASCULAR: no syncope. PULMONARY: no hemoptysis. GASTROINTESTINAL: No diarrhea, no nausea, no vomiting, no abdominal pain. Normoactive bowel sounds. NEUROLOGICAL: No headaches, no weakness, no numbness. HEMATOLOGICAL: Denies any bleeding or petechiae. GENITOURINARY: Denies any burning micturition, frequency, or urgency. MUSCULOSKELETAL/RHEUMATOLOGICAL: Denies any joint pain, swelling, or any muscle pain. ENDOCRINE: Denies any polyuria or polydipsia. Objective - Vital Signs Vital signs: Vital Signs Temp 98.0 F 09/21/18 16:00 Pulse 99 09/21/18 18:00 Resp 28 H 09/21/18 18:00 BP 105/72 09/21/18 18:00 Pulse Ox 92 L 09/21/18 18:00 Intake & Output 09/20/18 09/21/18 09/21/18 18:59 06:59 18:59 Intake Total 170 1020 320 Output Total 1820 1326 1265 Balance -1650 -306 -945 Weight 180.6 kg Intake: IV 170 220 320 0.9 Sodium Chloride 70 120 120 Piperacillin-Tazobactam 3 100 100 200 .375 gm In Sodium Chloride 0.9% 100 ml @ 25 mls/hr IVPB Q8HR [facility] Rx# :[id number] Oral 800 Output: Urine 1820 1325 1265 Stool 1 Other: Voiding Method Indwelling Catheter Indwelling Catheter Indwelling Catheter # Bowel Movements 1 1 - Exam GENERAL: The patient is alert and oriented x3, not in any acute distress. morbidly obese HEENT: Pupils are round and equally reacting to light. EOMI. No scleral icterus. No conjunctival pallor. Normocephalic, atraumatic. No pharyngeal erythema. No thyromegaly. CARDIOVASCULAR: S1 and S2 present. No murmurs, rubs, or gallops. PULMONARY: Chest is clear to auscultation, no wheezing or crackles. decreased breath sounds. ABDOMEN: Soft, nontender, nondistended, normoactive bowel sounds. No palpable organomegaly. MUSCULOSKELETAL: No joint swelling or deformity. EXTREMITIES: No cyanosis, clubbing, or pedal edema. NEUROLOGICAL: Gross neurological examination did not reveal any focal deficits. SKIN: right leg cellulitis - Labs CBC & Chem 7: 09/21/18 04:19 09/21/18 04:19 Labs: Abnormal Lab Results - Last 24 Hours (Table) 09/20/18 09/20/18 09/21/18 Range/Units 18:35 21:15 04:19 MCHC 29.7 L (31.0-37.0) g/dL RDW 22.2 H (11.5-15.5) % Neutrophils # 8.5 H (1.3-7.7) k/uL Lymphocytes # 0.8 L (1.0-4.8) k/uL ABG pH 7.31 L (7.35-7.45) ABG pCO2 87 H* (35-45) mmHg ABG pO2 68 L (83-108) mmHg ABG HCO3 44 H* (21-25) mmol/L ABG Total CO2 47 H (19-24) mmol/L ABG O2 Saturation 92.3 L (94-97) % Chloride (98-107) mmol/L Carbon Dioxide (22-30) mmol/L BUN (7-17) mg/dL Creatinine (0.52-1.04) mg/dL Glucose (74-99) mg/dL POC Glucose (mg/dL) 174 H (75-99) mg/dL Calcium (8.4-10.2) mg/dL Magnesium (1.6-2.3) mg/dL 09/21/18 09/21/18 09/21/18 Range/Units 04:19 07:30 11:56 MCHC (31.0-37.0) g/dL RDW (11.5-15.5) % Neutrophils # (1.3-7.7) k/uL Lymphocytes # (1.0-4.8) k/uL ABG pH (7.35-7.45) ABG pCO2 (35-45) mmHg ABG pO2 (83-108) mmHg ABG HCO3 (21-25) mmol/L ABG Total CO2 (19-24) mmol/L ABG O2 Saturation (94-97) % Chloride 92 L (98-107) mmol/L Carbon Dioxide 39 H (22-30) mmol/L BUN 97 H (7-17) mg/dL Creatinine 1.14 H (0.52-1.04) mg/dL Glucose 147 H (74-99) mg/dL POC Glucose (mg/dL) 122 H 140 H (75-99) mg/dL Calcium 10.4 H (8.4-10.2) mg/dL Magnesium 2.6 H (1.6-2.3) mg/dL 09/21/18 Range/Units 17:11 MCHC (31.0-37.0) g/dL RDW (11.5-15.5) % Neutrophils # (1.3-7.7) k/uL Lymphocytes # (1.0-4.8) k/uL ABG pH (7.35-7.45) ABG pCO2 (35-45) mmHg ABG pO2 (83-108) mmHg ABG HCO3 (21-25) mmol/L ABG Total CO2 (19-24) mmol/L ABG O2 Saturation (94-97) % Chloride (98-107) mmol/L Carbon Dioxide (22-30) mmol/L BUN (7-17) mg/dL Creatinine (0.52-1.04) mg/dL Glucose (74-99) mg/dL POC Glucose (mg/dL) 131 H (75-99) mg/dL Calcium (8.4-10.2) mg/dL Magnesium (1.6-2.3) mg/dL Microbiology - Last 24 Hours (Table) 09/19/18 15:26 Blood Culture - Preliminary Blood No Growth after 48 hours 09/19/18 12:45 Gram Stain - Preliminary Leg - Right Wound Culture - Preliminary Presumptive MRSA Pseudomonas aeruginosa 09/19/18 17:00 Urine Culture - Preliminary Urine,Voided Group D Enterococcus Gram Neg Bacilli Assessment and Plan Assessment: acute on chronic resp failure hypoventilation obesity syndrome acute on chronic diastolic CHF cellulitis of the lower extremity with mrsa and psudomonas hypertension a fib on eliquis Plan: this is a pleasant 68 yo F who presents with cellutitis and resp failure, pulmonary critical care team are following the pt. pt is on diuretics, uses BiPAP machine. continue with the same treatment , continue with symptomatic treatment , resume home medication , monitor lytes and vitals including glucose , cardiology consult is appreciated. . c/w same antibioitc . GI and DVT prophylaxis , further recommendation based upon pt clinical course and progress DVT prophylaxis eliquis GI prophylaxis Protonix Prognosis is guarded
[2018-09-21] MEDS: HYDROcodone/APAP 5-325MG 1 EACH TAB PO PRN (19:53)
[2018-09-21 21:20] LABS: Glucose,Whole Blood 177 mg/dL (75-99)
[2018-09-21] MEDS: DILTIAZEM 50 MG in SODIUM CHLORIDE 0.9% 40 ML IV SCH (23:45)
[2018-09-22] MEDS: PIPERACILLIN-TAZOBACTAM 3.375 GM in SODIUM CHLORIDE 0.9% 100 ML IVPB SCH ×4 (00:14→23:52)
[2018-09-22] MEDS: HYDROcodone/APAP 5-325MG 1 EACH TAB PO PRN ×2 (04:27→14:29)
[2018-09-22 06:39] LABS: Anisocytosis Moderate; Basophils % (A) 0 %; Eosinophils # (A) 0.1 k/uL (0-0.7); Eosinophils % (A) 1 %; HCT 38.8 % (34.0-46.0); HGB 11.9 gm/dL (11.4-16.0); Hypochromasia Marked; Lymphocytes # (A) 1.2 k/uL (1.0-4.8); Lymphocytes % (A) 20 %; MCH 26.6 pg (25.0-35.0); MCHC 30.6 g/dL (31.0-37.0); MCV 86.8 fL (80.0-100.0); Mean Platelet Volume 8.9; Microcytosis Slight; Monocytes # (A) 0.7 k/uL (0-1.0); Monocytes % (A) 11 %; Neutrophils # (A) 3.9 k/uL (1.3-7.7); Neutrophils % (A) 64 %; Platelet Count 187 k/uL (150-450); Poikilocytosis Moderate; RBC 4.47 m/uL (3.80-5.40); RDW 21.9 % (11.5-15.5); WBC 6.1 k/uL (3.8-10.6)
[2018-09-22 07:05] LABS: Glucose,Whole Blood 122 mg/dL (75-99)
[2018-09-22] MEDS: INSULIN ASPART 100 UNIT/ML 1 ML 10 ML VIAL SQ SCH ×4 (07:06→21:06)
[2018-09-22] MEDS: DILTIAZEM 50 MG in SODIUM CHLORIDE 0.9% 40 ML IV SCH (07:10)
[2018-09-22 07:13] LABS: Magnesium 2.4 mg/dL (1.6-2.3); Phosphorus 3.5 mg/dL (2.5-4.5); Potassium 5.2 mmol/L (3.5-5.1)
[2018-09-22] MEDS: SYMBICORT 160-4.5 MCG INHALER INHALATION SCH ×2 (07:13→19:28)
[2018-09-22] MEDS: IPRATROPIUM-ALBUTEROL 3 ML NEB INHALATION SCH ×4 (07:13→19:28)
[2018-09-22] MEDS: FUROSEMIDE 10 MG/ML 4 ML VIAL IV SCH ×2 (08:24→20:54)
[2018-09-22] MEDS: SPIRONOLACTONE 25 MG TAB PO SCH (08:33)
[2018-09-22] MEDS: METOPROLOL TARTRATE 50 MG TAB PO SCH ×2 (08:33→20:53)
[2018-09-22] MEDS: APIXABAN 5 MG TAB PO SCH ×2 (08:33→20:54)
[2018-09-22] MEDS: PANTOPRAZOLE 40 MG TABLET PO SCH (08:33)
[2018-09-22] MEDS: DILTIAZEM ORAL 30 MG TAB PO SCH ×3 (08:33→20:53)
--- NOTE | 2018-09-22 08:43 | XR ---
EXAMINATION TYPE: XR chest 1V DATE OF EXAM: 09/22/2018 COMPARISON: 09/21/2018 HISTORY: Shortness of breath TECHNIQUE: Single frontal view of the chest is obtained. FINDINGS: Again there is marked cardiomegaly and a similar appearing moderate left pleural effusion with stable trace right pleural effusion and bibasilar airspace disease. Mild pulmonary vascular alyce estion is seen throughout. Osseous structures are grossly intact. IMPRESSION: Similar-appearing sequela of congestive heart failure in comparison to the prior of 09/21 with mild pulmonary vascular congestion, moderate left pleural effusion, trace right pleural ef fusion and bibasilar airspace disease.
--- NOTE | 2018-09-22 09:23 | P.PN ---
Subjective Progress Note Date: 09/22/18 This is a 68-year-old female with history of obesity, chronic diastolic CHF, atrial fibrillation and chronic respiratory failure. Patient seemed to be relatively stable. Last night patient developed rapid ventricular response to be atypical fibrillation. She was initiated on IV Cardizem drip. Her rate is controlled now. We'll going to increase the dose of the by mouth Cardizem to 90 mg 3 times a day. We'll attempt to wean off the Cardizem, this afternoon. Chest x-ray shows persistent CHF changes and possible basilar infiltrates. Lungs show some diminished vessel at bases. Heart is irregular. Her legs are wrapped. Continue current medical therapy Objective - Vital Signs Vital signs: Vital Signs Temp 96.4 F L 09/22/18 08:00 Pulse 101 H 09/22/18 09:00 Resp 28 H 09/22/18 09:00 BP 109/73 09/22/18 09:00 Pulse Ox 90 L 09/22/18 09:00 Intake & Output 09/21/18 09/22/18 09/22/18 18:59 06:59 18:59 Intake Total 320 345 167.083 Output Total 1265 1236 365 Balance -945 -891 -197.917 Weight 183.8 kg Intake: IV 320 245 130 0.9 Sodium Chloride 120 120 30 Piperacillin-Tazobactam 3 200 125 100 .375 gm In Sodium Chloride 0.9% 100 ml @ 25 mls/hr IVPB Q8HR [facility] Rx# :[id number] Intake, IV Titration 37.083 Amount Diltiazem 50 mg In Sodium 37.083 Chloride 0.9% 40 ml @ 5 MG/HR 5 mls/hr IV .Q10H [facility] Rx#:[id number] Oral 100 Output: Urine 1265 1235 365 Stool 1 Other: Voiding Method Indwelling Catheter Indwelling Catheter # Bowel Movements 1 - Exam GENERAL EXAM: Patient is alert and oriented and doesn't appear to be in any acute distress HEENT: Normocephalic. Normal reaction of pupils, equal size, normal range of extraocular motion. No erythema or exudates in the throat. NECK: No masses, no nuchal rigidity. CHEST: No chest wall deformity. LUNGS: Diminished air exchange and breath sounds at bases HEART: S1 and S2 normal. Irregular heart sounds ABDOMEN: No hepatosplenomegaly, normal bowel sounds, no guarding or rigidity. SKIN: No rashes CENTRAL NERVOUS SYSTEM: No focal deficits. EXTREMITIES: Both legs are wrapped - Labs CBC & Chem 7: 09/22/18 05:15 09/22/18 05:15 Labs: Abnormal Lab Results - Last 24 Hours (Table) 09/21/18 09/21/18 09/21/18 Range/Units 11:56 17:11 21:08 MCHC (31.0-37.0) g/dL RDW (11.5-15.5) % Potassium (3.5-5.1) mmol/L Chloride (98-107) mmol/L Carbon Dioxide (22-30) mmol/L BUN (7-17) mg/dL Creatinine (0.52-1.04) mg/dL Glucose (74-99) mg/dL POC Glucose (mg/dL) 140 H 131 H 177 H (75-99) mg/dL Magnesium (1.6-2.3) mg/dL 09/22/18 09/22/18 09/22/18 Range/Units 05:15 05:15 06:54 MCHC 30.6 L (31.0-37.0) g/dL RDW 21.9 H (11.5-15.5) % Potassium 5.2 H (3.5-5.1) mmol/L Chloride 93 L (98-107) mmol/L Carbon Dioxide 40 H (22-30) mmol/L BUN 96 H (7-17) mg/dL Creatinine 1.08 H (0.52-1.04) mg/dL Glucose 111 H (74-99) mg/dL POC Glucose (mg/dL) 122 H (75-99) mg/dL Magnesium 2.4 H (1.6-2.3) mg/dL Microbiology - Last 24 Hours (Table) 09/19/18 12:45 Gram Stain - Preliminary Leg - Right Wound Culture - Preliminary Presumptive MRSA Pseudomonas aeruginosa 09/19/18 17:00 Urine Culture - Final Urine,Voided Enterococcus faecium VRE Pseudomonas aeruginosa 09/19/18 15:26 Blood Culture - Preliminary Blood No Growth after 48 hours Assessment and Plan (1) Acute on chronic diastolic CHF (congestive heart failure) Current Visit: Yes Status: Acute Code(s): I50.33 - ACUTE ON CHRONIC DIASTOLIC (CONGESTIVE) HEART FAILURE SNOMED Code(s): 998760717 (2) Acute respiratory failure with hypoxia and hypercarbia Current Visit: Yes Status: Acute Code(s): J96.01 - ACUTE RESPIRATORY FAILURE WITH HYPOXIA; J96.02 - ACUTE RESPIRATORY FAILURE WITH HYPERCAPNIA SNOMED Code(s): 748913024 (3) Bilateral lower leg cellulitis Current Visit: No Status: Acute Code(s): L03.116 - CELLULITIS OF LEFT LOWER LIMB; L03.115 - CELLULITIS OF RIGHT LOWER LIMB SNOMED Code(s): 787143074 (4) Chronic atrial fibrillation Current Visit: Yes Status: Acute Code(s): I48.2 - CHRONIC ATRIAL FIBRILLATION SNOMED Code(s): 226919469 Plan: Patient is in atrial fibrillation and had rapid ventricular response last night. Patient is on IV Cardizem. I'm going to increase the dose of the Cardizem by mouth to 90 mg 3 times a day and try to taper off the IV Cardizem
[2018-09-22] MEDS: ACETAMINOPHEN TAB 325 MG TAB PO PRN ×2 (11:18→21:08)
[2018-09-22 11:23] LABS: Glucose,Whole Blood 117 mg/dL (75-99)
[2018-09-22 11:53] LABS: ABG Base Excess 16.8 mmol/L; ABG Oxygen Saturation 94.9 % (94-97); ABG PH 7.31 (7.35-7.45); ABG PO2 73 mmHg (83-108); ABG TCO2 46 mmol/L (19-24)
[2018-09-22 11:57] LABS: ABG HCO3 43 mmol/L (21-25); ABG PCO2 85 mmHg (35-45)
[2018-09-22] MEDS: DAPTOmycin 500 MG in SODIUM CHLORIDE 0.9% 50 ML IVPB SCH (12:19)
--- NOTE | 2018-09-22 15:40 | P.PN ---
Subjective Progress Note Date: 09/22/18 Principal diagnosis: Acute on chronic hypercapnic and hypoxic respiratory failure secondary to acute cellulitis of the lower extremity This is a 68-year-old female patient, morbidly obese presented to the hospital because of diminished level of consciousness and cellulitis of the lower extremity. The patient developed a large vesicle over the pretibial area and the right lower extremity and ultimately the vesicle pops and the patient had a large erythematous patch in the right lower extremity at the site of the previous vesicle with skin irregularity and ulceration. The patient has chronic lower extremity edema bilaterally. No reported fever or chills. Nevertheless the patient was becoming more lethargic. She came into the emergency department the patient was found to be hypoxic. Her initial pulse ox was in the mid/low 80s. The patient was placed immediately on BiPAP at a car to the patient is on BiPAP at a pressure of over 5 cm of water. He is also on a FiO2 of 50%. The chest x-ray is limited because of her body habitus. Nevertheless, the patient has no cough or sputum production. No reported chest pain. No sputum production. She was also started on accommodation of Rocephin and Zithromax suspecting an underlying pneumonia and she was admitted to the hospital. I saw this patient and I also talked to her daughter at the bedside. The concern is for now right lower extremity cellulitis. Started this patient IV Zosyn pending infectious disease consultation. I reviewed the blood gases from this morning and the results are as mentioned above. Despite ongoing diminished level of consciousness, the patient is arousable and she can follow commands and answer questions appropriately. My last encounter with this patient was in the office and at that time I checked her BiPAP machine which is set at a pressure of 14/7 cm of water. She was extremely compliant and her AHI while on treatment was less than 5 consistent with successful BiPAP therapy. The patient has a stable renal function with a creatinine of 1.25 and a time of admission. Her white cell count is 11.1. She has also station to pressure ulcer in her left buttocks. No aspiration. No chest pain. She is moving all 4 extremities without any limitation. On 09/20/2018 patient was noted to be somnolent, hard to arouse, repeat blood gas was obtained, and showed pO2 of 79, pCO2 of 97, and pH of 7.23, consistent with an acute on chronic hypercapnic respiratory failure. On clinical exam patient was quite somnolent, stuporous, decision was made to move the patient is a intensive care unit, she continues on IV diuretics, and 40 mg every 8 hours , her weight actually increased by 1.3 kg in the last 24 hours, patient did not have an indwelling catheter, and has been incontinent of large amount of urine, says hard to estimate. Lung sounds are extremely diminished, her tidal volume is 325 ML on the BiPAP support. BiPAP settings of 16/5, and FiO2 of 40%. X- ray was obtained, and showed cardiomegaly with bilateral consolidation, interstitial edema. Patient was seen in consultation by infectious disease service, she is getting local wound care to the lower extremity cellulitis, she is on antibiotic coverage in the form of Zosyn. Wound cultures are positive for presumptive staph aureus, and gram-negative bacilli, cultures are pending. Repeat blood gases in the intensive care unit showed him pO2 of 88, pCO2 of 85, and pH of 7.29, improving blood gases, patient is started to a more alert, and responsive. Sucks is 96% on FiO2 of 40%, she is afebrile, patient is atrial fibrillation, patient has history of chronic A. fib, she is anticoagulated with the Apixaban. On 09/21/2018 patient seen in follow-up in the intensive care unit, she wore the BiPAP most of the day yesterday, and during the night, she was able to tolerate nasal cannula trials for meals yesterday. Today's exam: Patient is awake and alert, in no acute distress. Afebrile, hemodynamically stable, lung sounds are diminished, no rhonchi or wheezes, today's chest x-ray has been reviewed by Dr. Bazan, and showed improved volume status. She is diuresing , remains on Lasix 40 mg every 8 hours, and she is in -1956 mL over the last 24 hours. Denies any chest pain, she is receiving local wound care to the left leg cellulitis, and she is covered with Zosyn, ID service is following. On 09/22/2018 patient seen in follow-up in intensive care unit, she is currently awake and alert, on 6 L per high flow nasal cannula, she is wearing a BiPAP most of the time in between meals and at bedtime. Patient is able to come off for mealtimes however she becomes lethargic afterwards and has to go back on BiPAP. Afebrile, no chills, hemodynamically stable, microbiology results have been reviewed, and showed MRSA and Pseudomonas in the wound culture , and VRE and Pseudomonas in the urine culture, blood cultures were negative. Patient is currently just on Zosyn, we will add daptomycin, she continues on IV Lasix, at 40 mg every 12 hours, and she is in negative fluid balance. Today's chest x-ray was reviewed by Dr. Bazan and showed congestive heart failure with mild pulmonary vessel congestion, moderate left pleural effusion and trace right pleural effusion and bibasilar airspace disease. Objective - Vital Signs Vital signs: Vital Signs Temp 98.4 F 09/22/18 12:00 Pulse 78 09/22/18 15:31 Resp 22 09/22/18 15:00 BP 110/74 09/22/18 15:00 Pulse Ox 95 09/22/18 15:18 Intake & Output 09/21/18 09/22/18 09/22/18 18:59 06:59 18:59 Intake Total 320 345 267.083 Output Total 1265 1236 919 Balance -945 -891 -651.917 Weight 183.8 kg Intake: IV 320 245 180 0.9 Sodium Chloride 120 120 80 Piperacillin-Tazobactam 3 200 125 100 .375 gm In Sodium Chloride 0.9% 100 ml @ 25 mls/hr IVPB Q8HR [facility] Rx# :[id number] Intake, IV Titration 87.083 Amount DAPTOmycin 500 mg In 50 Sodium Chloride 0.9% 50 ml @ 100 mls/hr IVPB Q24H [facility] Rx#:[id number] Diltiazem 50 mg In Sodium 37.083 Chloride 0.9% 40 ml @ 5 MG/HR 5 mls/hr IV .Q10H [facility] Rx#:[id number] Oral 100 Output: Urine 1265 1235 919 Stool 1 Other: Voiding Method Indwelling Catheter Indwelling Catheter Indwelling Catheter # Bowel Movements 1 - Exam Gen: This is a 68-year-old morbidly obese female. The patient is awake, alert, on BiPAP support. She is able to follow commands. No focal neurological deficit at this point. She is able to tolerate a full face BiPAP mask treatment without any major limitation. HEENT: Head is atraumatic, normocephalic. Pupils equal, round. Sclerae is anicteric. Conjunctiva slightly pale. NECK: Supple. No JVD. No lymphadenopathy. No thyromegaly. LUNGS: Diminished bilaterally No wheezes or rhonchi. No intercostal retractions. HEART: Irregularly irregular rate and rhythm. No murmur. Distant heart sounds. ABDOMEN: Soft. Bowel sounds are present. No masses. No tenderness. No redness under her abdominal fold. EXTREMITIES: 3+ bilateral pedal edema. Large dressing in place on the right lower extremity which was not removed for evaluation and there is a that skin overlying the anterior parker in the right lower extremity related to a previous burst of a vesicle. The underlying skin is quite erythematous and red and there is a very clear demarcation line which linares cellulitis. NEUROLOGICAL: Patient is awake, alert and oriented x3. Generalized weakness noted. No focal neurological deficits. - Labs CBC & Chem 7: 09/22/18 05:15 09/22/18 05:15 Labs: Abnormal Lab Results - Last 24 Hours (Table) 09/21/18 09/21/18 09/22/18 Range/Units 17:11 21:08 05:15 MCHC 30.6 L (31.0-37.0) g/dL RDW 21.9 H (11.5-15.5) % ABG pH (7.35-7.45) ABG pCO2 (35-45) mmHg ABG pO2 (83-108) mmHg ABG HCO3 (21-25) mmol/L ABG Total CO2 (19-24) mmol/L Potassium (3.5-5.1) mmol/L Chloride (98-107) mmol/L Carbon Dioxide (22-30) mmol/L BUN (7-17) mg/dL Creatinine (0.52-1.04) mg/dL Glucose (74-99) mg/dL POC Glucose (mg/dL) 131 H 177 H (75-99) mg/dL Magnesium (1.6-2.3) mg/dL 09/22/18 09/22/18 09/22/18 Range/Units 05:15 06:54 11:12 MCHC (31.0-37.0) g/dL RDW (11.5-15.5) % ABG pH (7.35-7.45) ABG pCO2 (35-45) mmHg ABG pO2 (83-108) mmHg ABG HCO3 (21-25) mmol/L ABG Total CO2 (19-24) mmol/L Potassium 5.2 H (3.5-5.1) mmol/L Chloride 93 L (98-107) mmol/L Carbon Dioxide 40 H (22-30) mmol/L BUN 96 H (7-17) mg/dL Creatinine 1.08 H (0.52-1.04) mg/dL Glucose 111 H (74-99) mg/dL POC Glucose (mg/dL) 122 H 117 H (75-99) mg/dL Magnesium 2.4 H (1.6-2.3) mg/dL 09/22/18 Range/Units 11:51 MCHC (31.0-37.0) g/dL RDW (11.5-15.5) % ABG pH 7.31 L (7.35-7.45) ABG pCO2 85 H* (35-45) mmHg ABG pO2 73 L (83-108) mmHg ABG HCO3 43 H* (21-25) mmol/L ABG Total CO2 46 H (19-24) mmol/L Potassium (3.5-5.1) mmol/L Chloride (98-107) mmol/L Carbon Dioxide (22-30) mmol/L BUN (7-17) mg/dL Creatinine (0.52-1.04) mg/dL Glucose (74-99) mg/dL POC Glucose (mg/dL) (75-99) mg/dL Magnesium (1.6-2.3) mg/dL Microbiology - Last 24 Hours (Table) 09/19/18 12:45 Gram Stain - Final Leg - Right Wound Culture - Final Methicillin resist S. aureus Pseudomonas aeruginosa 09/19/18 17:00 Urine Culture - Final Urine,Voided Enterococcus faecium VRE Pseudomonas aeruginosa 09/19/18 15:26 Blood Culture - Preliminary Blood No Growth after 48 hours Assessment and Plan Plan: 1 acute cellulitis of the lower extremity in addition to a superficial ulceration secondary to previous edema/fluid seeping from the skin surface, with wound cultures positive for MRSA and pseudomonas aeruginosa 2 acute on chronic hypoxic and hypercapnic respiratory failure secondary to above. There may be a mild component of fluid overload based on the chest x- ray finding over the chest x-ray findings are somewhat limited because of her morbidly obese body habitus. Currently she is on a BiPAP at a pressure of 16/5 cm of water with an FiO2 of 50%. Chest x-ray still showing a component of interstitial edema, venous congestion, fluid overload 3 urinary tract infection with cultures positive for VRE and pseudomonas aeruginosa 4 chronic diastolic heart failure 5 obesity hypoventilation syndrome 6 obstructive sleep apnea 7 severe restrictive lung disease secondary to morbid obesity 8 morbidly obese due to BMI of 68.7 9 chronic atrial fibrillation 10 hypertension 11 stage II chronic kidney disease 12 acid reflux 13 very poor baseline performance and functional status secondary to above- mentioned comorbidities. 14 recurrent cellulites of the lower extremities bilaterally Plan: His chest x-ray has been reviewed with Dr. Bazan, we'll continue with IV Lasix for now, we will obtain a blood gas on 6 L per nasal cannula, patient still requiring BiPAP support most of the time in between meals and at bedtime. His chest x-ray was been reviewed, and still shows changes consistent with congestive heart failure, patient is maintaining negative fluid balance. Wound cultures were positive for pseudomonas aeruginosa and MRSA, and urine culture was positive pseudomonas and VRE, we will add daptomycin to current antibiotic coverage. Vital signs are stable, no fever no chills, patient will remain in the ICU for further monitoring. Continue to follow I performed a history & physical examination of the patient and discussed their management with my nurse practitioner, Maru Meyers. I reviewed the nurse practitioner's note and agree with the documented findings and plan of care. Lung sounds are diminished. The findings and the impression was discussed with the patient. I attest to the documentation by the nurse practitioner. Time with Patient: Greater than 30
[2018-09-22 17:05] LABS: Glucose,Whole Blood 127 mg/dL (75-99)
--- NOTE | 2018-09-22 18:48 | P.PN ---
Subjective this is a pleasant 68 yo F [facility] pm[facility] of asthma/copd, a fib on eliquis, diastolic CHF, GERD, GI Bleed, hypertension who presents with dyepsnea, not relieved by BiPAP at home, she was recently visited ED for lower extremity rash. pt was admitted to ICU for acute on chronic hypoxic resp failure with some elements of fluid overload radha on cxr. pt has positive urine culture for enterococcus and gram negative bacilli. and wound culture that is positive for MRSA and pseudomonas. he mild leukocytosis on admission was resolved. creatinine 1.14. sugar is controlled. 09/22/2018 pt was seen and examined in the ICU, pt was still on BiPAP machine. pt still looks lethargic and tired , pt wound c/s: MRSA and pseudomonas, while UC: VRE and enterococcus and pseudomonas, pt was started on Daptomycin. pt is afebrile, her leukocytosis has resolved and WBC: 6.1K , bp is at acceptable range. rest of vital looks stable, pt is on BiPAP, her blood is still acidemic with PG 7.1 and PCO2 of 85. pt is been followed in the ICU by critical care team and their input is appreciated REVIEW OF SYSTEMS: CONSTITUTIONAL: No fever, no malaise, no fatigue. HEENT: No recent visual problems or hearing problems. Denied any sore throat. CARDIOVASCULAR: no syncope. PULMONARY: no hemoptysis. GASTROINTESTINAL: No diarrhea, no nausea, no vomiting, no abdominal pain. Normoactive bowel sounds. NEUROLOGICAL: No headaches, no weakness, no numbness. HEMATOLOGICAL: Denies any bleeding or petechiae. GENITOURINARY: Denies any burning micturition, frequency, or urgency. MUSCULOSKELETAL/RHEUMATOLOGICAL: Denies any joint pain, swelling, or any muscle pain. ENDOCRINE: Denies any polyuria or polydipsia. Objective - Vital Signs Vital signs: Vital Signs Temp 97.4 F L 09/22/18 16:00 Pulse 85 09/22/18 18:00 Resp 14 09/22/18 18:00 BP 117/74 09/22/18 18:00 Pulse Ox 93 L 09/22/18 18:00 Intake & Output 09/21/18 09/22/18 09/22/18 18:59 06:59 18:59 Intake Total 320 345 412.083 Output Total 1265 1236 1339 Balance -945 -891 -926.917 Weight 183.8 kg Intake: IV 320 245 325 0.9 Sodium Chloride 120 120 125 Piperacillin-Tazobactam 3 200 125 200 .375 gm In Sodium Chloride 0.9% 100 ml @ 25 mls/hr IVPB Q8HR [facility] Rx# :[id number] Intake, IV Titration 87.083 Amount DAPTOmycin 500 mg In 50 Sodium Chloride 0.9% 50 ml @ 100 mls/hr IVPB Q24H [facility] Rx#:[id number] Diltiazem 50 mg In Sodium 37.083 Chloride 0.9% 40 ml @ 5 MG/HR 5 mls/hr IV .Q10H [facility] Rx#:[id number] Oral 100 Output: Urine 1265 1235 1339 Stool 1 Other: Voiding Method Indwelling Catheter Indwelling Catheter Indwelling Catheter # Bowel Movements 1 - Exam GENERAL: The patient is alert and oriented x3, not in any acute distress. morbidly obese HEENT: Pupils are round and equally reacting to light. EOMI. No scleral icterus. No conjunctival pallor. Normocephalic, atraumatic. No pharyngeal erythema. No thyromegaly. CARDIOVASCULAR: S1 and S2 present. No murmurs, rubs, or gallops. PULMONARY: Chest is clear to auscultation, no wheezing or crackles. decreased breath sounds. ABDOMEN: Soft, nontender, nondistended, normoactive bowel sounds. No palpable organomegaly. MUSCULOSKELETAL: No joint swelling or deformity. EXTREMITIES: No cyanosis, clubbing, or pedal edema. NEUROLOGICAL: Gross neurological examination did not reveal any focal deficits. SKIN: right leg cellulitis - Labs CBC & Chem 7: 09/22/18 05:15 09/22/18 05:15 Labs: Abnormal Lab Results - Last 24 Hours (Table) 09/21/18 09/22/18 09/22/18 Range/Units 21:08 05:15 05:15 MCHC 30.6 L (31.0-37.0) g/dL RDW 21.9 H (11.5-15.5) % ABG pH (7.35-7.45) ABG pCO2 (35-45) mmHg ABG pO2 (83-108) mmHg ABG HCO3 (21-25) mmol/L ABG Total CO2 (19-24) mmol/L Potassium 5.2 H (3.5-5.1) mmol/L Chloride 93 L (98-107) mmol/L Carbon Dioxide 40 H (22-30) mmol/L BUN 96 H (7-17) mg/dL Creatinine 1.08 H (0.52-1.04) mg/dL Glucose 111 H (74-99) mg/dL POC Glucose (mg/dL) 177 H (75-99) mg/dL Magnesium 2.4 H (1.6-2.3) mg/dL 09/22/18 09/22/18 09/22/18 Range/Units 06:54 11:12 11:51 MCHC (31.0-37.0) g/dL RDW (11.5-15.5) % ABG pH 7.31 L (7.35-7.45) ABG pCO2 85 H* (35-45) mmHg ABG pO2 73 L (83-108) mmHg ABG HCO3 43 H* (21-25) mmol/L ABG Total CO2 46 H (19-24) mmol/L Potassium (3.5-5.1) mmol/L Chloride (98-107) mmol/L Carbon Dioxide (22-30) mmol/L BUN (7-17) mg/dL Creatinine (0.52-1.04) mg/dL Glucose (74-99) mg/dL POC Glucose (mg/dL) 122 H 117 H (75-99) mg/dL Magnesium (1.6-2.3) mg/dL 09/22/18 Range/Units 16:53 MCHC (31.0-37.0) g/dL RDW (11.5-15.5) % ABG pH (7.35-7.45) ABG pCO2 (35-45) mmHg ABG pO2 (83-108) mmHg ABG HCO3 (21-25) mmol/L ABG Total CO2 (19-24) mmol/L Potassium (3.5-5.1) mmol/L Chloride (98-107) mmol/L Carbon Dioxide (22-30) mmol/L BUN (7-17) mg/dL Creatinine (0.52-1.04) mg/dL Glucose (74-99) mg/dL POC Glucose (mg/dL) 127 H (75-99) mg/dL Magnesium (1.6-2.3) mg/dL Microbiology - Last 24 Hours (Table) 09/19/18 15:26 Blood Culture - Preliminary Blood No Growth after 72 hours 09/19/18 12:45 Gram Stain - Final Leg - Right Wound Culture - Final Methicillin resist S. aureus Pseudomonas aeruginosa 09/19/18 17:00 Urine Culture - Final Urine,Voided Enterococcus faecium VRE Pseudomonas aeruginosa Assessment and Plan Assessment: acute on chronic resp failure hypoventilation obesity syndrome acute on chronic diastolic CHF cellulitis of the lower extremity with mrsa and psudomonas hypertension a fib on eliquis UTI with psudomonas and VRE Plan: this is a pleasant 68 yo F who presents with cellutitis and resp failure, pulmonary critical care team are following the pt. pt is on diuretics, uses BiPAP machine. continue with the same treatment , continue with symptomatic treatment , resume home medication , monitor lytes and vitals including glucose , cardiology consult is appreciated. . c/w same antibioitc . GI and DVT prophylaxis , further recommendation based upon pt clinical course and progress DVT prophylaxis eliquis GI prophylaxis Protonix Prognosis is guarded
[2018-09-22 20:49] LABS: Glucose,Whole Blood 160 mg/dL (75-99)
--- NOTE | 2018-09-22 22:26 | P.PN ---
Subjective Progress Note Date: 09/22/18 This is a 68-year-old female well-known to ID service as she has been seen in the past for chronic wounds and she has frequent admissions for heart failure with history of morbid obesity and lower extremity edema. Patient's daughters states that her breathing status has been stable. She is normally on O2 at 4 L nasal cannula since her last hospitalization. She uses a BiPAP at night. Patient developed a bubble type wound to the right pretibial area which her daughter states was a size of a thumbnail last week. This area continued to swell and reddened and she came into [facility] emergency center on was diagnosed with cellulitis and sent home on Keflex 500 mg every 6 hours for 5 days. This large blister has been popping on its own and then refilling with fluid almost daily and has increased in size to encompass almost the entire pretibial area. She denies that her mother has had any fever or chills. No problem with swallowing, bowel movements a been normal no blood in her stools or no diarrhea. She has urinating but decreased output over the past couple days. Patient had a drop in her pulse ox last night 85 when she was put on BiPAP it dropped down to 70%. EMS was called and patient was brought into [facility] emergency center for evaluation of acute hypoxic respiratory failure and acute diastolic heart failure. Chest x- ray showed CHF unchanged with moderate cardiomegaly. Her respiratory rate was 40, she was afebrile, her initial pulse ox was 69%. White count 11.1, creatinine 1.25. She was started on IV Lasix azithromycin and Solu-Medrol and admitted to the cardiac stepdown unit. There is a consult in place with pulmonary medicine. Patient also presented with stage II pressure ulcer left buttock. Patient is currently on BiPAP and states that she is feeling better since she came in. She is able to nod to answer questions. She is currently wheelchair bound and lives with her daughter. 09/22/2018 patient remains in intensive care unit on BiPAP with ongoing significant acidosis and hypercapnic Respiratory failure. The drainage from the right leg is markedly diminished and she is briefly arousable at times. She is in a negative fluid balance and seems to be feeling slightly better. But remains chronically and somewhat profoundly ill. Objective - Vital Signs Vital signs: Vital Signs Temp 97.8 F 09/22/18 20:00 Pulse 92 09/22/18 22:00 Resp 39 H 09/22/18 22:00 BP 91/55 09/22/18 22:00 Pulse Ox 94 L 09/22/18 22:00 Intake & Output 09/22/18 09/22/18 09/23/18 06:59 18:59 06:59 Intake Total 345 442.083 640 Output Total 1236 1399 155 Balance -891 -956.917 485 Weight 183.8 kg Intake: IV 245 355 130 0.9 Sodium Chloride 120 155 30 Piperacillin-Tazobactam 3 125 200 100 .375 gm In Sodium Chloride 0.9% 100 ml @ 25 mls/hr IVPB Q8HR [facility] Rx# :[id number] Intake, IV Titration 87.083 Amount DAPTOmycin 500 mg In 50 Sodium Chloride 0.9% 50 ml @ 100 mls/hr IVPB Q24H [facility] Rx#:[id number] Diltiazem 50 mg In Sodium 37.083 Chloride 0.9% 40 ml @ 5 MG/HR 5 mls/hr IV .Q10H [facility] Rx#:[id number] Oral 100 510 Output: Urine 1235 1399 155 Stool 1 Other: Voiding Method Indwelling Catheter Indwelling Catheter - Exam Gen: This is a 68-year-old morbidly obese female. She is sitting upright in bed on BiPAP. She is arousable HEENT: Head is atraumatic, normocephalic. Pupils equal, round. Sclerae is anicteric. Conjunctiva slightly pale. NECK: Supple. No JVD. No lymphadenopathy. No thyromegaly. LUNGS: Diminished bilaterally few expiratory wheezes are heard no brenden bronchial sounds lungs sounds are distant HEART: Irregularly irregular rate and rhythm. No murmur. Distant heart sounds. ABDOMEN: Obese Soft. Bowel sounds are present. No masses. No tenderness. No redness under her abdominal fold. EXTREMITIES: 3+ bilateral pedal edema. Large dressing in place on the right lower extremity which was not removed for evaluation and referred to Dr. Shepherd.. NEUROLOGICAL: She is arousable and follows simple commands briefly and falls back to sleep - Labs CBC & Chem 7: 09/22/18 05:15 12/06/18 05:15 Labs: Abnormal Lab Results - Last 24 Hours (Table) 09/22/18 09/22/18 09/22/18 Range/Units 05:15 05:15 06:54 MCHC 30.6 L (31.0-37.0) g/dL RDW 21.9 H (11.5-15.5) % ABG pH (7.35-7.45) ABG pCO2 (35-45) mmHg ABG pO2 (83-108) mmHg ABG HCO3 (21-25) mmol/L ABG Total CO2 (19-24) mmol/L Potassium 5.2 H (3.5-5.1) mmol/L Chloride 93 L (98-107) mmol/L Carbon Dioxide 40 H (22-30) mmol/L BUN 96 H (7-17) mg/dL Creatinine 1.08 H (0.52-1.04) mg/dL Glucose 111 H (74-99) mg/dL POC Glucose (mg/dL) 122 H (75-99) mg/dL Magnesium 2.4 H (1.6-2.3) mg/dL 09/22/18 09/22/18 09/22/18 Range/Units 11:12 11:51 16:53 MCHC (31.0-37.0) g/dL RDW (11.5-15.5) % ABG pH 7.31 L (7.35-7.45) ABG pCO2 85 H* (35-45) mmHg ABG pO2 73 L (83-108) mmHg ABG HCO3 43 H* (21-25) mmol/L ABG Total CO2 46 H (19-24) mmol/L Potassium (3.5-5.1) mmol/L Chloride (98-107) mmol/L Carbon Dioxide (22-30) mmol/L BUN (7-17) mg/dL Creatinine (0.52-1.04) mg/dL Glucose (74-99) mg/dL POC Glucose (mg/dL) 117 H 127 H (75-99) mg/dL Magnesium (1.6-2.3) mg/dL 09/22/18 Range/Units 20:37 MCHC (31.0-37.0) g/dL RDW (11.5-15.5) % ABG pH (7.35-7.45) ABG pCO2 (35-45) mmHg ABG pO2 (83-108) mmHg ABG HCO3 (21-25) mmol/L ABG Total CO2 (19-24) mmol/L Potassium (3.5-5.1) mmol/L Chloride (98-107) mmol/L Carbon Dioxide (22-30) mmol/L BUN (7-17) mg/dL Creatinine (0.52-1.04) mg/dL Glucose (74-99) mg/dL POC Glucose (mg/dL) 160 H (75-99) mg/dL Magnesium (1.6-2.3) mg/dL Microbiology - Last 24 Hours (Table) 09/19/18 15:26 Blood Culture - Preliminary Blood No Growth after 72 hours 09/19/18 12:45 Gram Stain - Final Leg - Right Wound Culture - Final Methicillin resist S. aureus Pseudomonas aeruginosa 09/19/18 17:00 Urine Culture - Final Urine,Voided Enterococcus faecium VRE Pseudomonas aeruginosa Laboratory Results WBC 6.1 k/uL (3.8-10.6) 09/22/18 05:15 RBC 4.47 m/uL (3.80-5.40) 09/22/18 05:15 Hgb 11.9 gm/dL (11.4-16.0) 09/22/18 05:15 Hct 38.8 % (34.0-46.0) 09/22/18 05:15 MCV 86.8 fL (80.0-100.0) 09/22/18 05:15 MCH 26.6 pg (25.0-35.0) 09/22/18 05:15 MCHC 30.6 g/dL (31.0-37.0) L 09/22/18 05:15 RDW 21.9 % (11.5-15.5) H 09/22/18 05:15 Plt Count 187 k/uL (150-450) 09/22/18 05:15 Neutrophils % 64 % 09/22/18 05:15 Lymphocytes % 20 % 09/22/18 05:15 Monocytes % 11 % 09/22/18 05:15 Eosinophils % 1 % 09/22/18 05:15 Basophils % 0 % 09/22/18 05:15 Neutrophils # 3.9 k/uL (1.3-7.7) 09/22/18 05:15 Lymphocytes # 1.2 k/uL (1.0-4.8) 09/22/18 05:15 Monocytes # 0.7 k/uL (0-1.0) 09/22/18 05:15 Eosinophils # 0.1 k/uL (0-0.7) 09/22/18 05:15 Basophils # 0.0 k/uL (0-0.2) 09/22/18 05:15 Hypochromasia Marked 09/22/18 05:15 Poikilocytosis Moderate 09/22/18 05:15 Anisocytosis Moderate 09/22/18 05:15 Microcytosis Slight 09/22/18 05:15 PT 9.9 sec (9.0-12.0) 09/18/18 16:45 INR 1.0 (<1.2) 09/18/18 16:45 APTT 20.9 sec (22.0-30.0) L 09/18/18 16:45 Sample Site R Radial 09/22/18 11:51 ABG pH 7.31 (7.35-7.45) L 09/22/18 11:51 ABG pCO2 85 mmHg (35-45) H* 09/22/18 11:51 ABG pO2 73 mmHg (83-108) L 09/22/18 11:51 ABG HCO3 43 mmol/L (21-25) H* 09/22/18 11:51 ABG Total CO2 46 mmol/L (19-24) H 09/22/18 11:51 ABG O2 Saturation 94.9 % (94-97) 09/22/18 11:51 ABG Base Excess 16.8 mmol/L 09/22/18 11:51 Eulogio Test Yes 09/22/18 11:51 VBG pH 7.28 (7.31-7.41) L 09/18/18 16:45 VBG pCO2 84 mmHg (37-51) H* 09/18/18 16:45 VBG HCO3 38 mmol/L (24-28) H 09/18/18 16:45 FiO2 44 % 09/22/18 11:51 Sodium 140 mmol/L (137-145) 09/22/18 05:15 Potassium 5.2 mmol/L (3.5-5.1) H 09/22/18 05:15 Chloride 93 mmol/L (98-107) L 09/22/18 05:15 Carbon Dioxide 40 mmol/L (22-30) H 09/22/18 05:15 Anion Gap 7 mmol/L 09/22/18 05:15 BUN 96 mg/dL (7-17) H 09/22/18 05:15 Creatinine 1.08 mg/dL (0.52-1.04) H 09/22/18 05:15 Est GFR (CKD-EPI)AfAm 61 (>60 ml/min/1.73 sqM) 09/22/18 05:15 Est GFR (CKD-EPI)NonAf 53 (>60 ml/min/1.73 sqM) 09/22/18 05:15 Glucose 111 mg/dL (74-99) H 09/22/18 05:15 POC Glucose (mg/dL) 160 mg/dL (75-99) H 09/22/18 20:37 POC Glu Director Facilities Maintenance ID Emir Wells 09/22/18 20:[address] Glu mg/dL 126 09/18/18 16:45 Hemoglobin A1c 6.0 % (4.0-6.0) 09/18/18 16:45 Calcium 10.0 mg/dL (8.4-10.2) 09/22/18 05:15 Phosphorus 3.5 mg/dL (2.5-4.5) 09/22/18 05:15 Magnesium 2.4 mg/dL (1.6-2.3) H 09/22/18 05:15 Total Bilirubin 0.3 mg/dL (0.2-1.3) 09/18/18 16:45 AST 23 U/L (14-36) 09/18/18 16:45 ALT 31 U/L (9-52) 09/18/18 16:45 Alkaline Phosphatase 96 U/L (38-126) 09/18/18 16:45 Total Creatine Kinase <20 U/L (30-135) L 09/18/18 16:45 CK-MB (CK-2) 1.2 ng/mL (0.0-2.4) 09/18/18 16:45 CK-MB (CK-2) Rel Index 09/18/18 16:45 Troponin I 0.022 ng/mL (0.000-0.034) 09/18/18 16:45 NT-Pro-B Natriuret Pep 3890 pg/mL 09/18/18 16:45 Total Protein 6.1 g/dL (6.3-8.2) L 09/18/18 16:45 Albumin 3.3 g/dL (3.5-5.0) L 09/18/18 16:45 Microbiology 09/19/18 15:26 Blood Blood Culture - Preliminary No Growth after 72 hours 09/19/18 12:45 Leg - Right Gram Stain - Final 09/19/18 12:45 Leg - Right Wound Culture - Final Methicillin resist S. aureus Pseudomonas aeruginosa 09/19/18 17:00 Urine,Voided Urine Culture - Final Enterococcus faecium VRE Pseudomonas aeruginosa Assessment and Plan (1) Acute respiratory failure with hypoxia and hypercarbia Current Visit: Yes Status: Acute Code(s): J96.01 - ACUTE RESPIRATORY FAILURE WITH HYPOXIA; J96.02 - ACUTE RESPIRATORY FAILURE WITH HYPERCAPNIA SNOMED Code(s): 044204078 (2) Acute on chronic diastolic CHF (congestive heart failure) Current Visit: Yes Status: Acute Code(s): I50.33 - ACUTE ON CHRONIC DIASTOLIC (CONGESTIVE) HEART FAILURE SNOMED Code(s): 029692036 (3) Cellulitis of right leg Narrative/Plan: As noted superobese woman who has had worsening volume status and is without significant bulla to the right leg. She is having ongoing difficulties with her oxygen saturations despite her BiPAP. Local care with a Silvadene wrap will be applied to the right lower extremity. Elevate as much as possible. Cultures are process. Due to her complex history Zosyn has been started which was be primarily being used for her pulmonary disease. We will also provide coverage for multiple pathogens that could be affecting the leg. As noted the wound cultures no evidence of MRSA and urine culture has evidence of VRE in counseling daptomycin has been initiated. The patient is cared for in the home setting with her daughter. If she improves there will need to be plans for outpatient intravenous antibiotic therapy to complete the treatment for her infections. Fortunately blood cultures are negative so far. When she is more stable IV access can be planned to utilize for her outpatient therapy when she stable for home. Is being treated for the congestive heart failure which will hopefully improve her pulmonary status and at least somewhat improve her severe acidosis. Current Visit: Yes Status: Acute Code(s): L03.115 - CELLULITIS OF RIGHT LOWER LIMB SNOMED Code(s): 429697617
[2018-09-23] MEDS ORDERED: HALOPERIDOL LACTATE 5 MG/ML 1 ML VIAL IVP STA (04:39)
[2018-09-23 05:45] LABS: Anisocytosis Moderate; Basophils % (A) 0 %; Eosinophils # (A) 0.1 k/uL (0-0.7); Eosinophils % (A) 2 %; HCT 40.2 % (34.0-46.0); HGB 11.7 gm/dL (11.4-16.0); Hypochromasia Marked; Lymphocytes # (A) 1.2 k/uL (1.0-4.8); Lymphocytes % (A) 17 %; MCH 26.3 pg (25.0-35.0); MCHC 29.1 g/dL (31.0-37.0); MCV 90.2 fL (80.0-100.0); Macrocytosis Slight; Mean Platelet Volume 8.7; Monocytes # (A) 0.7 k/uL (0-1.0); Monocytes % (A) 10 %; Neutrophils # (A) 4.8 k/uL (1.3-7.7); Neutrophils % (A) 69 %; Platelet Count 189 k/uL (150-450); Poikilocytosis Moderate; RBC 4.46 m/uL (3.80-5.40); RDW 22.1 % (11.5-15.5); WBC 6.9 k/uL (3.8-10.6)
[2018-09-23 06:03] LABS: Calcium 9.9 mg/dL (8.4-10.2); Magnesium 2.5 mg/dL (1.6-2.3); Phosphorus 3.8 mg/dL (2.5-4.5)
[2018-09-23 06:07] LABS: Potassium 5.8 mmol/L (3.5-5.1)
[2018-09-23] MEDS: PANTOPRAZOLE 40 MG TABLET PO SCH (06:58)
[2018-09-23] MEDS: INSULIN ASPART 100 UNIT/ML 1 ML 10 ML VIAL SQ SCH ×4 (06:58→21:30)
[2018-09-23] MEDS: PIPERACILLIN-TAZOBACTAM 3.375 GM in SODIUM CHLORIDE 0.9% 100 ML IVPB SCH ×2 (07:01→16:05)
[2018-09-23 07:03] LABS: Glucose,Whole Blood 146 mg/dL (75-99)
[2018-09-23] MEDS: IPRATROPIUM-ALBUTEROL 3 ML NEB INHALATION SCH ×4 (07:19→19:16)
[2018-09-23] MEDS: SYMBICORT 160-4.5 MCG INHALER INHALATION SCH ×2 (07:33→19:17)
[2018-09-23] MEDS: FUROSEMIDE 10 MG/ML 4 ML VIAL IV SCH ×2 (08:08→21:31)
[2018-09-23] MEDS: DILTIAZEM ORAL 30 MG TAB PO SCH ×3 (08:08→21:30)
[2018-09-23] MEDS: SPIRONOLACTONE 25 MG TAB PO SCH (08:08)
[2018-09-23] MEDS: ACETAMINOPHEN TAB 325 MG TAB PO PRN (08:08)
[2018-09-23] MEDS: APIXABAN 5 MG TAB PO SCH ×2 (08:09→21:30)
[2018-09-23] MEDS: METOPROLOL TARTRATE 50 MG TAB PO SCH ×2 (09:14→21:30)
[2018-09-23] MEDS: HYDROcodone/APAP 5-325MG 1 EACH TAB PO PRN ×3 (09:14→22:11)
--- NOTE | 2018-09-23 11:06 | XR ---
EXAMINATION TYPE: XR chest 1V DATE OF EXAM: 09/23/2018 COMPARISON: 09/22/2018 INDICATION: Shortness of breath TECHNIQUE: Single frontal view of the chest is obtained. FINDINGS: The heart size is marked cardiomegaly. The pulmonary vasculature is normal. No suspicious infiltrates are evident. Minimal left pleural effusion may remain present. IMPRESSION: 1. Marked cardiomegaly. 2. Some residual left pleural effusion may remain present. 3. Findings of congestive heart failure are improving.
[2018-09-23 11:24] LABS: Glucose,Whole Blood 146 mg/dL (75-99)
[2018-09-23] MEDS ORDERED: SODIUM BICARB 8.4% 50 ML SYR (1 MEQ/ML) IV ONE (11:30)
[2018-09-23] MEDS: DAPTOmycin 500 MG in SODIUM CHLORIDE 0.9% 50 ML IVPB SCH (11:57)
--- NOTE | 2018-09-23 15:44 | P.PN ---
Subjective Progress Note Date: 09/23/18 Principal diagnosis: Acute on chronic hypercapnic and hypoxic respiratory failure secondary to acute cellulitis of the lower extremity This is a 68-year-old female patient, morbidly obese presented to the hospital because of diminished level of consciousness and cellulitis of the lower extremity. The patient developed a large vesicle over the pretibial area and the right lower extremity and ultimately the vesicle pops and the patient had a large erythematous patch in the right lower extremity at the site of the previous vesicle with skin irregularity and ulceration. The patient has chronic lower extremity edema bilaterally. No reported fever or chills. Nevertheless the patient was becoming more lethargic. She came into the emergency department the patient was found to be hypoxic. Her initial pulse ox was in the mid/low 80s. The patient was placed immediately on BiPAP at a car to the patient is on BiPAP at a pressure of over 5 cm of water. He is also on a FiO2 of 50%. The chest x-ray is limited because of her body habitus. Nevertheless, the patient has no cough or sputum production. No reported chest pain. No sputum production. She was also started on accommodation of Rocephin and Zithromax suspecting an underlying pneumonia and she was admitted to the hospital. I saw this patient and I also talked to her daughter at the bedside. The concern is for now right lower extremity cellulitis. Started this patient IV Zosyn pending infectious disease consultation. I reviewed the blood gases from this morning and the results are as mentioned above. Despite ongoing diminished level of consciousness, the patient is arousable and she can follow commands and answer questions appropriately. My last encounter with this patient was in the office and at that time I checked her BiPAP machine which is set at a pressure of 14/7 cm of water. She was extremely compliant and her AHI while on treatment was less than 5 consistent with successful BiPAP therapy. The patient has a stable renal function with a creatinine of 1.25 and a time of admission. Her white cell count is 11.1. She has also station to pressure ulcer in her left buttocks. No aspiration. No chest pain. She is moving all 4 extremities without any limitation. On 09/20/2018 patient was noted to be somnolent, hard to arouse, repeat blood gas was obtained, and showed pO2 of 79, pCO2 of 97, and pH of 7.23, consistent with an acute on chronic hypercapnic respiratory failure. On clinical exam patient was quite somnolent, stuporous, decision was made to move the patient is a intensive care unit, she continues on IV diuretics, and 40 mg every 8 hours , her weight actually increased by 1.3 kg in the last 24 hours, patient did not have an indwelling catheter, and has been incontinent of large amount of urine, says hard to estimate. Lung sounds are extremely diminished, her tidal volume is 325 ML on the BiPAP support. BiPAP settings of 16/5, and FiO2 of 40%. X- ray was obtained, and showed cardiomegaly with bilateral consolidation, interstitial edema. Patient was seen in consultation by infectious disease service, she is getting local wound care to the lower extremity cellulitis, she is on antibiotic coverage in the form of Zosyn. Wound cultures are positive for presumptive staph aureus, and gram-negative bacilli, cultures are pending. Repeat blood gases in the intensive care unit showed him pO2 of 88, pCO2 of 85, and pH of 7.29, improving blood gases, patient is started to a more alert, and responsive. Sucks is 96% on FiO2 of 40%, she is afebrile, patient is atrial fibrillation, patient has history of chronic A. fib, she is anticoagulated with the Apixaban. On 09/21/2018 patient seen in follow-up in the intensive care unit, she wore the BiPAP most of the day yesterday, and during the night, she was able to tolerate nasal cannula trials for meals yesterday. Today's exam: Patient is awake and alert, in no acute distress. Afebrile, hemodynamically stable, lung sounds are diminished, no rhonchi or wheezes, today's chest x-ray has been reviewed by Dr. Bazan, and showed improved volume status. She is diuresing , remains on Lasix 40 mg every 8 hours, and she is in -1956 mL over the last 24 hours. Denies any chest pain, she is receiving local wound care to the left leg cellulitis, and she is covered with Zosyn, ID service is following. On 09/22/2018 patient seen in follow-up in intensive care unit, she is currently awake and alert, on 6 L per high flow nasal cannula, she is wearing a BiPAP most of the time in between meals and at bedtime. Patient is able to come off for mealtimes however she becomes lethargic afterwards and has to go back on BiPAP. Afebrile, no chills, hemodynamically stable, microbiology results have been reviewed, and showed MRSA and Pseudomonas in the wound culture , and VRE and Pseudomonas in the urine culture, blood cultures were negative. Patient is currently just on Zosyn, we will add daptomycin, she continues on IV Lasix, at 40 mg every 12 hours, and she is in negative fluid balance. Today's chest x-ray was reviewed by Dr. Bazan and showed congestive heart failure with mild pulmonary vessel congestion, moderate left pleural effusion and trace right pleural effusion and bibasilar airspace disease. On 09/23/2018 patient seen in follow-up in the intensive care unit, she is awake and alert, she is wearing BiPAP most of the time, she has been able to come off for meals. She is on IV diuretics, she is diuresing , she is in -971 mL fluid balance. In no acute distress. Current antibiotic coverage includes Zosyn and daptomycin, urine cultures showed MRSA and pseudomonas aeruginosa, and urine culture was positive for enterococcus faecium, mycin resistant and pseudomonas aeruginosa. Infectious disease service is following. His chest x- ray was reviewed by Dr. Bazan, and showed some residual left pleural effusion , findings of congestive heart failure improving. Labs have been reviewed, WBC is 6.9, hemoglobin is 11.7, sodium is 140 potassium is 5.8, chloride is 93, CO2 is 40, B1 is 87 and creatinine is 1.1. We'll give the patient 2 A of sodium bicarb for hyperkalemia related to respiratory acidosis Objective - Vital Signs Vital signs: Vital Signs Temp 97.6 F 09/23/18 12:00 Pulse 84 09/23/18 15:28 Resp 23 09/23/18 15:00 BP 111/75 09/23/18 15:00 Pulse Ox 96 09/23/18 15:00 Intake & Output 09/22/18 09/23/18 09/23/18 18:59 06:59 18:59 Intake Total 471.518 0878 485 Output Total 1399 1240 1540 Balance -956. Weight 186.8 kg 186.8 kg Intake: IV 355 365 135 0.9 Sodium Chloride 155 165 135 Piperacillin-Tazobactam 3 200 200 .375 gm In Sodium Chloride 0.9% 100 ml @ 25 mls/hr IVPB Q8HR [facility] Rx# :[id number] Intake, IV Titration 87.083 100 Amount DAPTOmycin 500 mg In 50 100 Sodium Chloride 0.9% 50 ml @ 100 mls/hr IVPB Q24H [facility] Rx#:[id number] Diltiazem 50 mg In Sodium 37.083 Chloride 0.9% 40 ml @ 5 MG/HR 5 mls/hr IV .Q10H [facility] Rx#:[id number] Oral 860 250 Output: Urine 1399 1240 1540 Other: Voiding Method Indwelling Catheter Indwelling Catheter Indwelling Catheter - Exam Gen: This is a 68-year-old morbidly obese female. The patient is awake, alert, on BiPAP support. She is able to follow commands. No focal neurological deficit at this point. She is able to tolerate a full face BiPAP mask treatment without any major limitation. HEENT: Head is atraumatic, normocephalic. Pupils equal, round. Sclerae is anicteric. Conjunctiva slightly pale. NECK: Supple. No JVD. No lymphadenopathy. No thyromegaly. LUNGS: Diminished bilaterally No wheezes or rhonchi. No intercostal retractions. HEART: Irregularly irregular rate and rhythm. No murmur. Distant heart sounds. ABDOMEN: Soft. Bowel sounds are present. No masses. No tenderness. No redness under her abdominal fold. EXTREMITIES: 3+ bilateral pedal edema. Large dressing in place on the right lower extremity which was not removed for evaluation and there is a that skin overlying the anterior parker in the right lower extremity related to a previous burst of a vesicle. The underlying skin is quite erythematous and red and there is a very clear demarcation line which linares cellulitis. NEUROLOGICAL: Patient is awake, alert and oriented x3. Generalized weakness noted. No focal neurological deficits. - Labs CBC & Chem 7: 09/23/18 04:39 09/23/18 04:39 Labs: Abnormal Lab Results - Last 24 Hours (Table) 09/22/18 09/22/18 09/23/18 Range/Units 16:53 20:37 04:39 MCHC 29.1 L (31.0-37.0) g/dL RDW 22.1 H (11.5-15.5) % Potassium (3.5-5.1) mmol/L Chloride (98-107) mmol/L Carbon Dioxide (22-30) mmol/L BUN (7-17) mg/dL Creatinine (0.52-1.04) mg/dL Glucose (74-99) mg/dL POC Glucose (mg/dL) 127 H 160 H (75-99) mg/dL Magnesium (1.6-2.3) mg/dL 09/23/18 09/23/18 09/23/18 Range/Units 04:39 06:51 11:11 MCHC (31.0-37.0) g/dL RDW (11.5-15.5) % Potassium 5.8 H (3.5-5.1) mmol/L Chloride 93 L (98-107) mmol/L Carbon Dioxide 40 H (22-30) mmol/L BUN 87 H (7-17) mg/dL Creatinine 1.10 H (0.52-1.04) mg/dL Glucose 152 H (74-99) mg/dL POC Glucose (mg/dL) 146 H 146 H (75-99) mg/dL Magnesium 2.5 H (1.6-2.3) mg/dL Microbiology - Last 24 Hours (Table) 09/19/18 12:45 Gram Stain - Final Leg - Right Wound Culture - Final Methicillin resist S. aureus Pseudomonas aeruginosa 09/19/18 15:26 Blood Culture - Preliminary Blood No Growth after 72 hours Assessment and Plan Plan: 1 acute cellulitis of the lower extremity in addition to a superficial ulceration secondary to previous edema/fluid seeping from the skin surface, with wound cultures positive for MRSA and pseudomonas aeruginosa 2 acute on chronic hypoxic and hypercapnic respiratory failure secondary to above. There may be a mild component of fluid overload based on the chest x- ray finding over the chest x-ray findings are somewhat limited because of her morbidly obese body habitus. Currently she is on a BiPAP at a pressure of 16/5 cm of water with an FiO2 of 50%. Chest x-ray still showing a component of interstitial edema, venous congestion, fluid overload 3 urinary tract infection with cultures positive for VRE and pseudomonas aeruginosa 4 chronic diastolic heart failure 5 obesity hypoventilation syndrome 6 obstructive sleep apnea 7 severe restrictive lung disease secondary to morbid obesity 8 morbidly obese due to BMI of 68.7 9 chronic atrial fibrillation 10 hypertension 11 stage II chronic kidney disease 12 acid reflux 13 very poor baseline performance and functional status secondary to above- mentioned comorbidities. 14 recurrent cellulites of the lower extremities bilaterally Plan: Continue IV Lasix, we'll give the patient a couple doses of sodium bicarb hyperkalemia likely related to respiratory acidosis related to hypercapnia. Today's chest x-ray has been reviewed by Dr. Bazan, shows improving volume status. Continue BiPAP support at bedtime and as needed during the day, patient may come off as tolerated. Continue antibiotic coverage. Continue to follow, patient will remain in the ICU for next 24 hours. I performed a history & physical examination of the patient and discussed their management with my nurse practitioner, Maru Meyers. I reviewed the nurse practitioner's note and agree with the documented findings and plan of care. Lung sounds are diminished. The findings and the impression was discussed with the patient. I attest to the documentation by the nurse practitioner. Time with Patient: Greater than 30
--- NOTE | 2018-09-23 16:42 | P.PN ---
Subjective Progress Note Date: 09/23/18 This is a 68-year-old female with history of obesity, chronic diastolic CHF, atrial fibrillation and chronic respiratory failure. Patient seemed to be relatively stable. Last night patient developed rapid ventricular response to be atypical fibrillation. She was initiated on IV Cardizem drip. Her rate is controlled now. We'll going to increase the dose of the by mouth Cardizem to 90 mg 3 times a day. We'll attempt to wean off the Cardizem, this afternoon. Chest x-ray shows persistent CHF changes and possible basilar infiltrates. Lungs show some diminished vessel at bases. Heart is irregular. Her legs are wrapped. Continue current medical therapy. 09/23/2018 to this patient is admitted with respiratory failure, diastolic CHF, and also atrial fibrillation. Patient is extremely obese. She is also being treated for cellulitis of the legs. Chest x-ray shows some improvement in Volume status. Patient is on IV Lasix and diuresing fairly well. Heart rate is well controlled. She is on Cardizem 90mg by mouth 3 times a day. We'll continue current medical therapy. Objective - Vital Signs Vital signs: Vital Signs Temp 97.7 F 09/23/18 16:00 Pulse 95 09/23/18 16:00 Resp 31 H 09/23/18 16:00 BP 119/73 09/23/18 16:00 Pulse Ox 94 L 09/23/18 16:00 Intake & Output 09/22/18 09/23/18 09/23/18 18:59 06:59 18:59 Intake Total 280.413 0988 600 Output Total 1399 1240 1665 Balance -956. Weight 186.8 kg 186.8 kg Intake: IV 355 365 250 0.9 Sodium Chloride 155 165 150 Piperacillin-Tazobactam 3 200 200 100 .375 gm In Sodium Chloride 0.9% 100 ml @ 25 mls/hr IVPB Q8HR [facility] Rx# :[id number] Intake, IV Titration 87.083 100 Amount DAPTOmycin 500 mg In 50 100 Sodium Chloride 0.9% 50 ml @ 100 mls/hr IVPB Q24H [facility] Rx#:[id number] Diltiazem 50 mg In Sodium 37.083 Chloride 0.9% 40 ml @ 5 MG/HR 5 mls/hr IV .Q10H [facility] Rx#:[id number] Oral 860 250 Output: Urine 1399 1240 1665 Other: Voiding Method Indwelling Catheter Indwelling Catheter Indwelling Catheter - Exam GENERAL EXAM: Patient is alert and oriented and doesn't appear to be in any acute distress HEENT: Normocephalic. Normal reaction of pupils, equal size, normal range of extraocular motion. No erythema or exudates in the throat. NECK: No masses, no nuchal rigidity. CHEST: No chest wall deformity. LUNGS: Diminished air exchange and breath sounds at bases HEART: S1 and S2 normal. Irregular heart sounds ABDOMEN: No hepatosplenomegaly, normal bowel sounds, no guarding or rigidity. SKIN: No rashes CENTRAL NERVOUS SYSTEM: No focal deficits. EXTREMITIES: Both legs are wrapped - Labs CBC & Chem 7: 09/23/18 04:39 09/23/18 04:39 Labs: Abnormal Lab Results - Last 24 Hours (Table) 09/22/18 09/22/18 09/23/18 Range/Units 16:53 20:37 04:39 MCHC 29.1 L (31.0-37.0) g/dL RDW 22.1 H (11.5-15.5) % Potassium (3.5-5.1) mmol/L Chloride (98-107) mmol/L Carbon Dioxide (22-30) mmol/L BUN (7-17) mg/dL Creatinine (0.52-1.04) mg/dL Glucose (74-99) mg/dL POC Glucose (mg/dL) 127 H 160 H (75-99) mg/dL Magnesium (1.6-2.3) mg/dL 09/23/18 09/23/18 09/23/18 Range/Units 04:39 06:51 11:11 MCHC (31.0-37.0) g/dL RDW (11.5-15.5) % Potassium 5.8 H (3.5-5.1) mmol/L Chloride 93 L (98-107) mmol/L Carbon Dioxide 40 H (22-30) mmol/L BUN 87 H (7-17) mg/dL Creatinine 1.10 H (0.52-1.04) mg/dL Glucose 152 H (74-99) mg/dL POC Glucose (mg/dL) 146 H 146 H (75-99) mg/dL Magnesium 2.5 H (1.6-2.3) mg/dL Microbiology - Last 24 Hours (Table) 09/19/18 12:45 Gram Stain - Final Leg - Right Wound Culture - Final Methicillin resist S. aureus Pseudomonas aeruginosa 09/19/18 15:26 Blood Culture - Preliminary Blood No Growth after 72 hours Assessment and Plan (1) Acute on chronic diastolic CHF (congestive heart failure) Current Visit: Yes Status: Acute Code(s): I50.33 - ACUTE ON CHRONIC DIASTOLIC (CONGESTIVE) HEART FAILURE SNOMED Code(s): 934856256 (2) Acute respiratory failure with hypoxia and hypercarbia Current Visit: Yes Status: Acute Code(s): J96.01 - ACUTE RESPIRATORY FAILURE WITH HYPOXIA; J96.02 - ACUTE RESPIRATORY FAILURE WITH HYPERCAPNIA SNOMED Code(s): 200088620 (3) Bilateral lower leg cellulitis Current Visit: No Status: Acute Code(s): L03.116 - CELLULITIS OF LEFT LOWER LIMB; L03.115 - CELLULITIS OF RIGHT LOWER LIMB SNOMED Code(s): 491398974 (4) Chronic atrial fibrillation Current Visit: Yes Status: Acute Code(s): I48.2 - CHRONIC ATRIAL FIBRILLATION SNOMED Code(s): 304782087 Plan: Patient's heart rate is well controlled. She is off IV Cardizem. Still on IV Lasix which will be continued for another 24 hours. Rest of the management as for enamel pulverizer
[2018-09-23 17:19] LABS: Glucose,Whole Blood 137 mg/dL (75-99)
--- NOTE | 2018-09-23 17:39 | P.PN ---
Subjective this is a pleasant [address] [facility] of asthma/copd, a fib on eliquis, diastolic CHF, GERD, GI Bleed, hypertension who presents with dyepsnea, not relieved by BiPAP at home, she was recently visited ED for lower extremity rash. pt was admitted to ICU for acute on chronic hypoxic resp failure with some elements of fluid overload radha on cxr. pt has positive urine culture for enterococcus and gram negative bacilli. and wound culture that is positive for MRSA and pseudomonas. he mild leukocytosis on admission was resolved. creatinine 1.14. sugar is controlled. 09/22/2018 pt was seen and examined in the ICU, pt was still on BiPAP machine. pt still looks lethargic and tired , pt wound c/s: MRSA and pseudomonas, while UC: VRE and enterococcus and pseudomonas, pt was started on Daptomycin. pt is afebrile, her leukocytosis has resolved and WBC: 6.1K , bp is at acceptable range. rest of vital looks stable, pt is on BiPAP, her blood is still acidemic with PG 7.1 and PCO2 of 85. pt is been followed in the ICU by critical care team and their input is appreciated 09/23/2018 Patient remains in the ICU on CPAP/BiPAP machine, she has pain in the left lower extremity from her cellulitis which is the same since admission. Her blood pressure is stable and she is saturating 94% on 6 L nasal cannula. No leukocytosis and her CBC were unremarkable. Sodium 140. Potassium elevated at 5.8. Pulmonary team are following the patient and they gave the patient sodium bicarb And creatinine 1.1. Monitor potassium level REVIEW OF SYSTEMS: CONSTITUTIONAL: No fever, no malaise, no fatigue. HEENT: No recent visual problems or hearing problems. Denied any sore throat. CARDIOVASCULAR: no syncope. PULMONARY: no hemoptysis. GASTROINTESTINAL: No diarrhea, no nausea, no vomiting, no abdominal pain. Normoactive bowel sounds. NEUROLOGICAL: No headaches, no weakness, no numbness. HEMATOLOGICAL: Denies any bleeding or petechiae. GENITOURINARY: Denies any burning micturition, frequency, or urgency. MUSCULOSKELETAL/RHEUMATOLOGICAL: Denies any joint pain, swelling, or any muscle pain. ENDOCRINE: Denies any polyuria or polydipsia. Objective - Vital Signs Vital signs: Vital Signs Temp 97.7 F 09/23/18 16:00 Pulse 75 09/23/18 17:00 Resp 17 09/23/18 17:00 BP 107/78 09/23/18 17:00 Pulse Ox 93 L 09/23/18 17:00 Intake & Output 09/22/18 09/23/18 09/23/18 18:59 06:59 18:59 Intake Total 176.527 0960 615 Output Total 1399 1240 1815 Balance -976.918 -56 -8594 Weight 186.8 kg 186.8 kg Intake: IV 355 365 265 0.9 Sodium Chloride 155 165 165 Piperacillin-Tazobactam 3 200 200 100 .375 gm In Sodium Chloride 0.9% 100 ml @ 25 mls/hr IVPB Q8HR [facility] Rx# :[id number] Intake, IV Titration 87.083 100 Amount DAPTOmycin 500 mg In 50 100 Sodium Chloride 0.9% 50 ml @ 100 mls/hr IVPB Q24H [facility] Rx#:[id number] Diltiazem 50 mg In Sodium 37.083 Chloride 0.9% 40 ml @ 5 MG/HR 5 mls/hr IV .Q10H [facility] Rx#:[id number] Oral 860 250 Output: Urine 1399 1240 1815 Other: Voiding Method Indwelling Catheter Indwelling Catheter Indwelling Catheter - Exam GENERAL: The patient is alert and oriented x3, not in any acute distress. morbidly obese HEENT: Pupils are round and equally reacting to light. EOMI. No scleral icterus. No conjunctival pallor. Normocephalic, atraumatic. No pharyngeal erythema. No thyromegaly. CARDIOVASCULAR: S1 and S2 present. No murmurs, rubs, or gallops. PULMONARY: Chest is clear to auscultation, no wheezing or crackles. decreased breath sounds. ABDOMEN: Soft, nontender, nondistended, normoactive bowel sounds. No palpable organomegaly. MUSCULOSKELETAL: No joint swelling or deformity. EXTREMITIES: No cyanosis, clubbing, or pedal edema. NEUROLOGICAL: Gross neurological examination did not reveal any focal deficits. SKIN: right leg cellulitis - Labs CBC & Chem 7: 09/23/18 04:39 09/23/18 04:39 Labs: Abnormal Lab Results - Last 24 Hours (Table) 09/22/18 09/23/18 09/23/18 Range/Units 20:37 04:39 04:39 MCHC 29.1 L (31.0-37.0) g/dL RDW 22.1 H (11.5-15.5) % Potassium 5.8 H (3.5-5.1) mmol/L Chloride 93 L (98-107) mmol/L Carbon Dioxide 40 H (22-30) mmol/L BUN 87 H (7-17) mg/dL Creatinine 1.10 H (0.52-1.04) mg/dL Glucose 152 H (74-99) mg/dL POC Glucose (mg/dL) 160 H (75-99) mg/dL Magnesium 2.5 H (1.6-2.3) mg/dL 09/23/18 09/23/18 09/23/18 Range/Units 06:51 11:11 17:07 MCHC (31.0-37.0) g/dL RDW (11.5-15.5) % Potassium (3.5-5.1) mmol/L Chloride (98-107) mmol/L Carbon Dioxide (22-30) mmol/L BUN (7-17) mg/dL Creatinine (0.52-1.04) mg/dL Glucose (74-99) mg/dL POC Glucose (mg/dL) 146 H 146 H 137 H (75-99) mg/dL Magnesium (1.6-2.3) mg/dL Microbiology - Last 24 Hours (Table) 09/19/18 12:45 Gram Stain - Final Leg - Right Wound Culture - Final Methicillin resist S. aureus Pseudomonas aeruginosa 09/19/18 15:26 Blood Culture - Preliminary Blood No Growth after 72 hours Assessment and Plan Assessment: acute on chronic resp failure hypoventilation obesity syndrome acute on chronic diastolic CHF cellulitis of the lower extremity with mrsa and psudomonas hypertension a fib on eliquis UTI with psudomonas and VRE Plan: this is a pleasant 68 yo F who presents with cellutitis and resp failure, pulmonary critical care team are following the pt. pt is on diuretics, uses BiPAP machine. continue with the same treatment , continue with symptomatic treatment , resume home medication , monitor lytes and vitals including glucose , cardiology consult is appreciated. . c/w same antibioitc . GI and DVT prophylaxis , further recommendation based upon pt clinical course and progress DVT prophylaxis eliquis GI prophylaxis Protonix Prognosis is guarded
[2018-09-23 20:21] LABS: Glucose,Whole Blood 155 mg/dL (75-99)
[2018-09-24] MEDS: PIPERACILLIN-TAZOBACTAM 3.375 GM in SODIUM CHLORIDE 0.9% 100 ML IVPB SCH ×3 (00:23→16:08)
[2018-09-24] MEDS: HYDROcodone/APAP 5-325MG 1 EACH TAB PO PRN ×3 (05:50→19:56)
[2018-09-24 05:55] LABS: Anisocytosis Moderate; Basophils % (A) 0 %; Eosinophils # (A) 0.1 k/uL (0-0.7); Eosinophils % (A) 2 %; HCT 40.5 % (34.0-46.0); Hypochromasia Marked; Lymphocytes # (A) 1.3 k/uL (1.0-4.8); Lymphocytes % (A) 17 %; MCH 26.5 pg (25.0-35.0); MCHC 29.6 g/dL (31.0-37.0); MCV 89.6 fL (80.0-100.0); Macrocytosis Slight; Mean Platelet Volume 7.9; Monocytes # (A) 0.5 k/uL (0-1.0); Monocytes % (A) 6 %; Neutrophils # (A) 5.5 k/uL (1.3-7.7); Neutrophils % (A) 71 %; Platelet Count 182 k/uL (150-450); Poikilocytosis Moderate; RBC 4.52 m/uL (3.80-5.40); RDW 22.2 % (11.5-15.5); WBC 7.7 k/uL (3.8-10.6)
[2018-09-24 06:15] LABS: Calcium 9.7 mg/dL (8.4-10.2); Magnesium 2.3 mg/dL (1.6-2.3); Phosphorus 3.3 mg/dL (2.5-4.5); Potassium 4.9 mmol/L (3.5-5.1)
--- NOTE | 2018-09-24 06:15 | XR ---
EXAMINATION TYPE: XR chest 1V DATE OF EXAM: 09/24/2018 HISTORY: Shortness of breath . REFERENCE: Previous study dated 09/23/2018. FINDINGS: Unfortunately, the patient's jaw projects over the upper chest. There is multichamber cardiac enlargement. There is bibasilar airspace disease, greater on the left t hdz the right. I suspect small, bilateral effusions, greater on the left than the right. IMPRESSION: NO SIGNIFICANT INTERVAL CHANGE IN THE APPEARANCE OF THE CHEST.
[2018-09-24 07:16] LABS: Glucose,Whole Blood 125 mg/dL (75-99)
[2018-09-24] MEDS: INSULIN ASPART 100 UNIT/ML 1 ML 10 ML VIAL SQ SCH ×4 (07:20→21:29)
[2018-09-24] MEDS: SYMBICORT 160-4.5 MCG INHALER INHALATION SCH ×2 (07:20→20:01)
[2018-09-24] MEDS: IPRATROPIUM-ALBUTEROL 3 ML NEB INHALATION SCH ×4 (07:20→20:01)
[2018-09-24] MEDS: DILTIAZEM ORAL 30 MG TAB PO SCH ×3 (09:18→21:28)
[2018-09-24] MEDS: PANTOPRAZOLE 40 MG TABLET PO SCH (09:18)
[2018-09-24] MEDS: APIXABAN 5 MG TAB PO SCH ×2 (09:18→21:28)
[2018-09-24] MEDS: METOPROLOL TARTRATE 50 MG TAB PO SCH ×2 (09:19→21:28)
[2018-09-24] MEDS: SPIRONOLACTONE 25 MG TAB PO SCH (09:19)
[2018-09-24] MEDS: FUROSEMIDE 10 MG/ML 4 ML VIAL IV SCH ×2 (09:19→21:29)
[2018-09-24 10:03] LABS: ABG Base Excess 23.2 mmol/L; ABG Oxygen Saturation 92.4 % (94-97); ABG PH 7.33 (7.35-7.45); ABG PO2 64 mmHg (83-108); ABG TCO2 52 mmol/L (19-24)
--- NOTE | 2018-09-24 10:05 | P.PN ---
Subjective Progress Note Date: 09/23/18 This is a 68-year-old female well-known to ID service as she has been seen in the past for chronic wounds and she has frequent admissions for heart failure with history of morbid obesity and lower extremity edema. Patient's daughters states that her breathing status has been stable. She is normally on O2 at 4 L nasal cannula since her last hospitalization. She uses a BiPAP at night. Patient developed a bubble type wound to the right pretibial area which her daughter states was a size of a thumbnail last week. This area continued to swell and reddened and she came into [facility] emergency center on was diagnosed with cellulitis and sent home on Keflex 500 mg every 6 hours for 5 days. This large blister has been popping on its own and then refilling with fluid almost daily and has increased in size to encompass almost the entire pretibial area. She denies that her mother has had any fever or chills. No problem with swallowing, bowel movements a been normal no blood in her stools or no diarrhea. She has urinating but decreased output over the past couple days. Patient had a drop in her pulse ox last night 85 when she was put on BiPAP it dropped down to 70%. EMS was called and patient was brought into [facility] emergency center for evaluation of acute hypoxic respiratory failure and acute diastolic heart failure. Chest x- ray showed CHF unchanged with moderate cardiomegaly. Her respiratory rate was 40, she was afebrile, her initial pulse ox was 69%. White count 11.1, creatinine 1.25. She was started on IV Lasix azithromycin and Solu-Medrol and admitted to the cardiac stepdown unit. There is a consult in place with pulmonary medicine. Patient also presented with stage II pressure ulcer left buttock. Patient is currently on BiPAP and states that she is feeling better since she came in. She is able to nod to answer questions. She is currently wheelchair bound and lives with her daughter. 09/22/2018 patient remains in intensive care unit on BiPAP with ongoing significant acidosis and hypercapnic Respiratory failure. The drainage from the right leg is markedly diminished and she is briefly arousable at times. She is in a negative fluid balance and seems to be feeling slightly better. But remains chronically and somewhat profoundly ill. 09/23/2018 patient is currently off of BiPAP therapy, this is the first time I have not evaluated her when she is not on BiPAP. She is able to relate a few sentences but does drift asleep quite readily. She does not have significant complaint Objective - Vital Signs Vital signs: Vital Signs Temp 97.5 F L 09/24/18 08:00 Pulse 126 H 09/24/18 09:00 Resp 20 09/24/18 09:00 BP 92/63 09/24/18 09:00 Pulse Ox 90 L 09/24/18 09:00 Intake & Output 09/23/18 09/24/18 09/24/18 18:59 06:59 18:59 Intake Total 630 760 285 Output Total 1880 1296 225 Balance -1250 -536 60 Weight 186.8 kg 188.6 kg Intake: IV 280 280 45 0.9 Sodium Chloride 180 180 45 Piperacillin-Tazobactam 3 100 100 .375 gm In Sodium Chloride 0.9% 100 ml @ 25 mls/hr IVPB Q8HR [facility] Rx# :[id number] Intake, IV Titration 100 Amount DAPTOmycin 500 mg In 100 Sodium Chloride 0.9% 50 ml @ 100 mls/hr IVPB Q24H [facility] Rx#:[id number] Oral 250 480 240 Output: Urine 1880 1295 225 Stool 1 Other: Voiding Method Indwelling Catheter Indwelling Catheter # Bowel Movements 1 - Exam Gen: This is a 68-year-old morbidly obese female. She is sitting upright in bed no BiPAP at this time and did communicate. HEENT: Head is atraumatic, normocephalic. Pupils equal, round. Sclerae is anicteric. Conjunctiva slightly pale. NECK: Supple. No JVD. No lymphadenopathy. No thyromegaly. LUNGS: Diminished bilaterally few expiratory wheezes are heard no brenden bronchial sounds lungs sounds are distant HEART: Irregularly irregular rate and rhythm. No murmur. Distant heart sounds. ABDOMEN: Obese Soft. Bowel sounds are present. No masses. No tenderness. No redness under her abdominal fold. EXTREMITIES: 3+ bilateral pedal edema. Large dressing in place on the right lower extremity which was not removed for evaluation and referred to Dr. Shepherd.. NEUROLOGICAL: She is arousable and follows simple commands briefly and falls back to sleep - Labs CBC & Chem 7: 09/24/18 05:13 12/08/18 05:13 Labs: Abnormal Lab Results - Last 24 Hours (Table) 09/23/18 09/23/18 09/23/18 Range/Units 11:11 17:07 20:09 MCHC (31.0-37.0) g/dL RDW (11.5-15.5) % Chloride (98-107) mmol/L Carbon Dioxide (22-30) mmol/L BUN (7-17) mg/dL Glucose (74-99) mg/dL POC Glucose (mg/dL) 146 H 137 H 155 H (75-99) mg/dL 09/24/18 09/24/18 09/24/18 Range/Units 05:13 05:13 07:04 MCHC 29.6 L (31.0-37.0) g/dL RDW 22.2 H (11.5-15.5) % Chloride 90 L (98-107) mmol/L Carbon Dioxide 42 H* (22-30) mmol/L BUN 72 H (7-17) mg/dL Glucose 115 H (74-99) mg/dL POC Glucose (mg/dL) 125 H (75-99) mg/dL Microbiology - Last 24 Hours (Table) 09/19/18 15:26 Blood Culture - Preliminary Blood No Growth after 96 hours 09/19/18 12:45 Gram Stain - Final Leg - Right Wound Culture - Final Methicillin resist S. aureus Pseudomonas aeruginosa Microbiology 09/19/18 15:26 Blood Blood Culture - Preliminary No Growth after 96 hours 09/19/18 12:45 Leg - Right Gram Stain - Final 09/19/18 12:45 Leg - Right Wound Culture - Final Methicillin resist S. aureus Pseudomonas aeruginosa 09/19/18 17:00 Urine,Voided Urine Culture - Final Enterococcus faecium VRE Pseudomonas aeruginosa Assessment and Plan (1) Acute respiratory failure with hypoxia and hypercarbia Current Visit: Yes Status: Acute Code(s): J96.01 - ACUTE RESPIRATORY FAILURE WITH HYPOXIA; J96.02 - ACUTE RESPIRATORY FAILURE WITH HYPERCAPNIA SNOMED Code(s): 154520800 (2) Acute on chronic diastolic CHF (congestive heart failure) Current Visit: Yes Status: Acute Code(s): I50.33 - ACUTE ON CHRONIC DIASTOLIC (CONGESTIVE) HEART FAILURE SNOMED Code(s): 163092064 (3) Cellulitis of right leg Narrative/Plan: As noted superobese woman who has had worsening volume status and is without significant bulla to the right leg. She is having ongoing difficulties with her oxygen saturations despite her BiPAP. Local care with a Silvadene wrap will be applied to the right lower extremity. Elevate as much as possible. Cultures are process. Due to her complex history Zosyn has been started which was be primarily being used for her pulmonary disease. We will also provide coverage for multiple pathogens that could be affecting the leg. As noted the wound cultures no evidence of MRSA and urine culture has evidence of VRE in counseling daptomycin has been initiated. The patient is cared for in the home setting with her daughter. If she improves there will need to be plans for outpatient intravenous antibiotic therapy to complete the treatment for her infections. Fortunately blood cultures are negative so far. When she is more stable IV access can be planned to utilize for her outpatient therapy when she stable for home. Is being treated for the congestive heart failure which will hopefully improve her pulmonary status and at least somewhat improve her severe acidosis. 09/23/2018 patient is more comfortable. Continues to have significant respiratory difficulties with her pickwickian syndrome and hypercapnic respiratory failure. The lower extremities are much improved with diuresis and local wound care. Continue with the silver alginate to the right lower extremity and the wrap which is allowed a marked improvement of the ulceration. With the edema control there is also been a significant reduction of the copious amount of drainage from the leg. Currently be treated with daptomycin and Zosyn will monitor cultures she will need further IV access placed for intravenous antibiotic therapy to her discharge which the daughter hopes will be to home on the consider transition of Zosyn to a different agent. Current Visit: Yes Status: Acute Code(s): L03.115 - CELLULITIS OF RIGHT LOWER LIMB SNOMED Code(s): 554422440
--- NOTE | 2018-09-24 10:06 | P.PN ---
Subjective Progress Note Date: 09/24/18 O This is a 68-year-old female patient, morbidly obese presented to the hospital because of diminished level of consciousness and cellulitis of the lower extremity. The patient developed a large vesicle over the pretibial area and the right lower extremity and ultimately the vesicle pops and the patient had a large erythematous patch in the right lower extremity at the site of the previous vesicle with skin irregularity and ulceration. The patient has chronic lower extremity edema bilaterally. No reported fever or chills. Nevertheless the patient was becoming more lethargic. She came into the emergency department the patient was found to be hypoxic. Her initial pulse ox was in the mid/low 80s. The patient was placed immediately on BiPAP at a car to the patient is on BiPAP at a pressure of over 5 cm of water. He is also on a FiO2 of 50%. The chest x-ray is limited because of her body habitus. Nevertheless, the patient has no cough or sputum production. No reported chest pain. No sputum production. She was also started on accommodation of Rocephin and Zithromax suspecting an underlying pneumonia and she was admitted to the hospital. I saw this patient and I also talked to her daughter at the bedside. The concern is for now right lower extremity cellulitis. Started this patient IV Zosyn pending infectious disease consultation. I reviewed the blood gases from this morning and the results are as mentioned above. Despite ongoing diminished level of consciousness, the patient is arousable and she can follow commands and answer questions appropriately. My last encounter with this patient was in the office and at that time I checked her BiPAP machine which is set at a pressure of 14/7 cm of water. She was extremely compliant and her AHI while on treatment was less than 5 consistent with successful BiPAP therapy. The patient has a stable renal function with a creatinine of 1.25 and a time of admission. Her white cell count is 11.1. She has also station to pressure ulcer in her left buttocks. No aspiration. No chest pain. She is moving all 4 extremities without any limitation. On 09/20/2018 patient was noted to be somnolent, hard to arouse, repeat blood gas was obtained, and showed pO2 of 79, pCO2 of 97, and pH of 7.23, consistent with an acute on chronic hypercapnic respiratory failure. On clinical exam patient was quite somnolent, stuporous, decision was made to move the patient is a intensive care unit, she continues on IV diuretics, and 40 mg every 8 hours , her weight actually increased by 1.3 kg in the last 24 hours, patient did not have an indwelling catheter, and has been incontinent of large amount of urine, says hard to estimate. Lung sounds are extremely diminished, her tidal volume is 325 ML on the BiPAP support. BiPAP settings of 16/5, and FiO2 of 40%. X- ray was obtained, and showed cardiomegaly with bilateral consolidation, interstitial edema. Patient was seen in consultation by infectious disease service, she is getting local wound care to the lower extremity cellulitis, she is on antibiotic coverage in the form of Zosyn. Wound cultures are positive for presumptive staph aureus, and gram-negative bacilli, cultures are pending. Repeat blood gases in the intensive care unit showed him pO2 of 88, pCO2 of 85, and pH of 7.29, improving blood gases, patient is started to a more alert, and responsive. Sucks is 96% on FiO2 of 40%, she is afebrile, patient is atrial fibrillation, patient has history of chronic A. fib, she is anticoagulated with the Apixaban. On 09/21/2018 patient seen in follow-up in the intensive care unit, she wore the BiPAP most of the day yesterday, and during the night, she was able to tolerate nasal cannula trials for meals yesterday. Today's exam: Patient is awake and alert, in no acute distress. Afebrile, hemodynamically stable, lung sounds are diminished, no rhonchi or wheezes, today's chest x-ray has been reviewed by Dr. Bazan, and showed improved volume status. She is diuresing , remains on Lasix 40 mg every 8 hours, and she is in -1956 mL over the last 24 hours. Denies any chest pain, she is receiving local wound care to the left leg cellulitis, and she is covered with Zosyn, ID service is following. On 09/22/2018 patient seen in follow-up in intensive care unit, she is currently awake and alert, on 6 L per high flow nasal cannula, she is wearing a BiPAP most of the time in between meals and at bedtime. Patient is able to come off for mealtimes however she becomes lethargic afterwards and has to go back on BiPAP. Afebrile, no chills, hemodynamically stable, microbiology results have been reviewed, and showed MRSA and Pseudomonas in the wound culture , and VRE and Pseudomonas in the urine culture, blood cultures were negative. Patient is currently just on Zosyn, we will add daptomycin, she continues on IV Lasix, at 40 mg every 12 hours, and she is in negative fluid balance. Today's chest x-ray was reviewed by Dr. Bazan and showed congestive heart failure with mild pulmonary vessel congestion, moderate left pleural effusion and trace right pleural effusion and bibasilar airspace disease. On 09/23/2018 patient seen in follow-up in the intensive care unit, she is awake and alert, she is wearing BiPAP most of the time, she has been able to come off for meals. She is on IV diuretics, she is diuresing , she is in -971 mL fluid balance. In no acute distress. Current antibiotic coverage includes Zosyn and daptomycin, urine cultures showed MRSA and pseudomonas aeruginosa, and urine culture was positive for enterococcus faecium, mycin resistant and pseudomonas aeruginosa. Infectious disease service is following. His chest x- ray was reviewed by Dr. Bazan, and showed some residual left pleural effusion , findings of congestive heart failure improving. Labs have been reviewed, WBC is 6.9, hemoglobin is 11.7, sodium is 140 potassium is 5.8, chloride is 93, CO2 is 40, B1 is 87 and creatinine is 1.1. We'll give the patient 2 A of sodium bicarb for hyperkalemia related to respiratory acidosis On 09/24/2018 I see this patient in ICU. Overnight she was kept on a BiPAP and this morning she was switched to a 6 L about 2 by nasal cannula. A follow-up blood. This will follow. She is doing well. She has no specific complaints. He has been on IV antibiotics regarding the right lower extremity cellulitis. A follow-up blood gases is to follow today. Meanwhile, her blood work shows a component of metabolic alkalosis which is compensated at and a serum bicarb is up to 42. White cell count is not elevated. She is hemodynamically stable. She is being diuresed with IV Lasix. She is a negative fluid balance. She has produced approximately 2.6 L 40 yesterday and 3.1 L for today and she remains in a negative fluid balance for all these days. Tolerating his diet pH is moving all 4 extremities without any limitation. Serum potassium level is down to 4.9. Objective - Vital Signs Vital signs: Vital Signs Temp 97.5 F L 09/24/18 08:00 Pulse 126 H 09/24/18 09:00 Resp 20 09/24/18 09:00 BP 92/63 09/24/18 09:00 Pulse Ox 90 L 09/24/18 09:00 Intake & Output 09/23/18 09/24/18 09/24/18 18:59 06:59 18:59 Intake Total 630 760 285 Output Total 1880 1296 225 Balance -1250 -536 60 Weight 186.8 kg 188.6 kg Intake: IV 280 280 45 0.9 Sodium Chloride 180 180 45 Piperacillin-Tazobactam 3 100 100 .375 gm In Sodium Chloride 0.9% 100 ml @ 25 mls/hr IVPB Q8HR [facility] Rx# :[id number] Intake, IV Titration 100 Amount DAPTOmycin 500 mg In 100 Sodium Chloride 0.9% 50 ml @ 100 mls/hr IVPB Q24H [facility] Rx#:[id number] Oral 250 480 240 Output: Urine 1880 1295 225 Stool 1 Other: Voiding Method Indwelling Catheter Indwelling Catheter # Bowel Movements 1 - Exam Gen: This is a 68-year-old morbidly obese female. The patient is awake, alert, on BiPAP support. She is able to follow commands. No focal neurological deficit at this point. The BiPAP was taken of this morning and she is currently on 6 L of oxygen by nasal cannula and awake and alert and she is following commands and answering questions appropriately. HEENT: Head is atraumatic, normocephalic. Pupils equal, round. Sclerae is anicteric. Conjunctiva slightly pale. NECK: Supple. No JVD. No lymphadenopathy. No thyromegaly. LUNGS: Diminished bilaterally No wheezes or rhonchi. No intercostal retractions. HEART: Irregularly irregular rate and rhythm. No murmur. Distant heart sounds. ABDOMEN: Soft. Bowel sounds are present. No masses. No tenderness. No redness under her abdominal fold. EXTREMITIES: 3+ bilateral pedal edema. Large dressing in place on the right lower extremity which was not removed for evaluation and there is a that skin overlying the anterior parker in the right lower extremity related to a previous burst of a vesicle. The underlying skin is quite erythematous and red and there is a very clear demarcation line which linares cellulitis. On today's evaluation, the cellulitis of the right lower extremity is improving. It is less erythematous compared to previous evaluations as the patient is being covered with broad-spectrum antibiotics. NEUROLOGICAL: Patient is awake, alert and oriented x3. Generalized weakness noted. No focal neurological deficits. - Labs CBC & Chem 7: 09/24/18 05:13 09/24/18 05:13 Labs: Abnormal Lab Results - Last 24 Hours (Table) 09/23/18 09/23/18 09/23/18 Range/Units 11:11 17:07 20:09 MCHC (31.0-37.0) g/dL RDW (11.5-15.5) % Chloride (98-107) mmol/L Carbon Dioxide (22-30) mmol/L BUN (7-17) mg/dL Glucose (74-99) mg/dL POC Glucose (mg/dL) 146 H 137 H 155 H (75-99) mg/dL 09/24/18 09/24/18 09/24/18 Range/Units 05:13 05:13 07:04 MCHC 29.6 L (31.0-37.0) g/dL RDW 22.2 H (11.5-15.5) % Chloride 90 L (98-107) mmol/L Carbon Dioxide 42 H* (22-30) mmol/L BUN 72 H (7-17) mg/dL Glucose 115 H (74-99) mg/dL POC Glucose (mg/dL) 125 H (75-99) mg/dL Microbiology - Last 24 Hours (Table) 09/19/18 15:26 Blood Culture - Preliminary Blood No Growth after 96 hours 09/19/18 12:45 Gram Stain - Final Leg - Right Wound Culture - Final Methicillin resist S. aureus Pseudomonas aeruginosa Assessment and Plan Plan: Assessment 1 acute cellulitis of the lower extremity in addition to a superficial ulceration secondary to previous edema/fluid seeping from the skin surface , the patient is currently on daptomycin and IV Zosyn. The patient had VRE and pseudomonas aeruginosa in the urine and MRSA and pseudomonas aeruginosa and the wound. The current antibiotic coverage is felt to be appropriate and the patient's right lower extremity cellulitis improving. 2 acute on chronic hypoxic and hypercapnic respiratory failure secondary to above. There may be a mild component of fluid overload based on the chest x- ray finding over the chest x-ray findings are somewhat limited because of her morbidly obese body habitus. Currently she is on a BiPAP at a pressure of 12/5 cm of water with an FiO2 of 50%. Patient is currently on 6 L of oxygen by nasal cannula. The follow-up blood gases be obtained to assess her acid base status. 3 chronic diastolic heart failure 4 obesity hypoventilation syndrome 5 obstructive sleep apnea 6 severe restrictive lung disease secondary to morbid obesity 7 morbidly obese due to BMI of 68.7 8 chronic atrial fibrillation 9 hypertension 10 stage II chronic kidney disease 11 acid reflux 12 very poor baseline performance and functional status secondary to above- mentioned comorbidities. 13 recurrent cellulites of the lower extremities bilaterally Plan Obtain blood gases and see if the patient needs Diamox in regards to her underlying metabolic alkalosis. Continue the Lasix. Continue the current antibiotic coverage includes a combination of Zosyn and daptomycin. BiPAP on and off during the day and continuously at nighttime. 6 L of oxygen nasal cannula. [facility] with telemetry monitoring at a later stage.
--- NOTE | 2018-09-24 10:49 | CONS ---
CONSULTATION Mrs. Robertson is a lady with severe sleep apnea who is on a BiPAP. She also has a history of atrial fibrillation. She is on Eliquis 5 mg b.i.d. Rate control appears to be good. She is hemodynamically stable, on a BiPAP at this time. Vitals are stable. S1, S2 heard normally but distantly with irregular rate, rhythm. Lungs reveal diminished air entry. Abdomen is soft. Lower extremities reveal diminished pulses with edema. Central nervous system limited exam is unremarkable. From a cardiac standpoint, I would continue diltiazem and beta donna for rate control and also Eliquis 5 mg b.i.d. We will continue to see her as needed. Thank you very much for the consult. MMODL / IJN: [id number] /
--- NOTE | 2018-09-24 10:57 | P.PN ---
Subjective this is a pleasant 68 [facility], a fib on eliquis, diastolic CHF, GERD, GI Bleed, hypertension who presents with dyepsnea, not relieved by BiPAP at home, she was recently visited ED for lower extremity rash. pt was admitted to ICU for acute on chronic hypoxic resp failure with some elements of fluid overload radha on cxr. pt has positive urine culture for enterococcus and gram negative bacilli. and wound culture that is positive for MRSA and pseudomonas. he mild leukocytosis on admission was resolved. creatinine 1.14. sugar is controlled. 09/22/2018 pt was seen and examined in the ICU, pt was still on BiPAP machine. pt still looks lethargic and tired , pt wound c/s: MRSA and pseudomonas, while UC: VRE and enterococcus and pseudomonas, pt was started on Daptomycin. pt is afebrile, her leukocytosis has resolved and WBC: 6.1K , bp is at acceptable range. rest of vital looks stable, pt is on BiPAP, her blood is still acidemic with PG 7.1 and PCO2 of 85. pt is been followed in the ICU by critical care team and their input is appreciated 09/23/2018 Patient remains in the ICU on CPAP/BiPAP machine, she has pain in the left lower extremity from her cellulitis which is the same since admission. Her blood pressure is stable and she is saturating 94% on 6 L nasal cannula. No leukocytosis and her CBC were unremarkable. Sodium 140. Potassium elevated at 5.8. Pulmonary team are following the patient and they gave the patient sodium bicarb And creatinine 1.1. Monitor potassium level 09/24/2018 Patient's seen and examined in the ICU today. She is feeling better and breathing is looks calm her. She is without the CPAP/BiPAP today. She was seen on nasal cannula saturation well and eating her breakfast daughter at bedside to help her. She still complaining from pain in her lower exudative slightly but she said that is been improving. She denies chest pain or dyspnea. No abdominal pain. No fever, little bit tachycardic. Blood pressure 120/80. Saturation 92% on 6 L. ABG done today showing pH of 7.3 with high pCO2 at 93. PO2 is 64. BMP showing sodium 138 with potassium 4.9 and high carbon dioxide at 42. Sugar looks controlled She is currently on daptomycin on positive urine and wound culture for pseudomonas, as well as MRSA in the leg and enterococcus in the urine REVIEW OF SYSTEMS: CONSTITUTIONAL: No fever, no malaise, no fatigue. HEENT: No recent visual problems or hearing problems. Denied any sore throat. CARDIOVASCULAR: no syncope. PULMONARY: no hemoptysis. GASTROINTESTINAL: No diarrhea, no nausea, no vomiting, no abdominal pain. Normoactive bowel sounds. NEUROLOGICAL: No headaches, no weakness, no numbness. HEMATOLOGICAL: Denies any bleeding or petechiae. GENITOURINARY: Denies any burning micturition, frequency, or urgency. MUSCULOSKELETAL/RHEUMATOLOGICAL: Denies any joint pain, swelling, or any muscle pain. ENDOCRINE: Denies any polyuria or polydipsia. Objective - Vital Signs Vital signs: Vital Signs Temp 97.5 F L 09/24/18 08:00 Pulse 101 H 09/24/18 10:00 Resp 18 09/24/18 10:00 BP 120/80 09/24/18 10:00 Pulse Ox 92 L 09/24/18 10:00 Intake & Output 09/23/18 09/24/18 09/24/18 18:59 06:59 18:59 Intake Total 630 760 285 Output Total 1880 1296 225 Balance -1250 -536 60 Weight 186.8 kg 188.6 kg Intake: IV 280 280 45 0.9 Sodium Chloride 180 180 45 Piperacillin-Tazobactam 3 100 100 .375 gm In Sodium Chloride 0.9% 100 ml @ 25 mls/hr IVPB Q8HR [facility] Rx# :[id number] Intake, IV Titration 100 Amount DAPTOmycin 500 mg In 100 Sodium Chloride 0.9% 50 ml @ 100 mls/hr IVPB Q24H [facility] Rx#:[id number] Oral 250 480 240 Output: Urine 1880 1295 225 Stool 1 Other: Voiding Method Indwelling Catheter Indwelling Catheter # Bowel Movements 1 - Exam GENERAL: The patient is alert and oriented x3, not in any acute distress. morbidly obese HEENT: Pupils are round and equally reacting to light. EOMI. No scleral icterus. No conjunctival pallor. Normocephalic, atraumatic. No pharyngeal erythema. No thyromegaly. CARDIOVASCULAR: S1 and S2 present. No murmurs, rubs, or gallops. PULMONARY: Chest is clear to auscultation, no wheezing or crackles. decreased breath sounds. ABDOMEN: Soft, nontender, nondistended, normoactive bowel sounds. No palpable organomegaly. MUSCULOSKELETAL: No joint swelling or deformity. EXTREMITIES: No cyanosis, clubbing, or pedal edema. NEUROLOGICAL: Gross neurological examination did not reveal any focal deficits. SKIN: right leg cellulitis - Labs CBC & Chem 7: 09/24/18 05:13 09/24/18 05:13 Labs: Abnormal Lab Results - Last 24 Hours (Table) 09/23/18 09/23/18 09/23/18 Range/Units 11:11 17:07 20:09 MCHC (31.0-37.0) g/dL RDW (11.5-15.5) % ABG pH (7.35-7.45) ABG pCO2 (35-45) mmHg ABG pO2 (83-108) mmHg ABG HCO3 (21-25) mmol/L ABG Total CO2 (19-24) mmol/L ABG O2 Saturation (94-97) % Chloride (98-107) mmol/L Carbon Dioxide (22-30) mmol/L BUN (7-17) mg/dL Glucose (74-99) mg/dL POC Glucose (mg/dL) 146 H 137 H 155 H (75-99) mg/dL 09/24/18 09/24/18 09/24/18 Range/Units 05:13 05:13 07:04 MCHC 29.6 L (31.0-37.0) g/dL RDW 22.2 H (11.5-15.5) % ABG pH (7.35-7.45) ABG pCO2 (35-45) mmHg ABG pO2 (83-108) mmHg ABG HCO3 (21-25) mmol/L ABG Total CO2 (19-24) mmol/L ABG O2 Saturation (94-97) % Chloride 90 L (98-107) mmol/L Carbon Dioxide 42 H* (22-30) mmol/L BUN 72 H (7-17) mg/dL Glucose 115 H (74-99) mg/dL POC Glucose (mg/dL) 125 H (75-99) mg/dL 09/24/18 Range/Units 10:00 MCHC (31.0-37.0) g/dL RDW (11.5-15.5) % ABG pH 7.33 L (7.35-7.45) ABG pCO2 93 H* (35-45) mmHg ABG pO2 64 L (83-108) mmHg ABG HCO3 49 H* (21-25) mmol/L ABG Total CO2 52 H (19-24) mmol/L ABG O2 Saturation 92.4 L (94-97) % Chloride (98-107) mmol/L Carbon Dioxide (22-30) mmol/L BUN (7-17) mg/dL Glucose (74-99) mg/dL POC Glucose (mg/dL) (75-99) mg/dL Microbiology - Last 24 Hours (Table) 09/19/18 15:26 Blood Culture - Preliminary Blood No Growth after 96 hours 09/19/18 12:45 Gram Stain - Final Leg - Right Wound Culture - Final Methicillin resist S. aureus Pseudomonas aeruginosa Assessment and Plan Assessment: acute on chronic resp failure hypoventilation obesity syndrome acute on chronic diastolic CHF cellulitis of the lower extremity with mrsa and psudomonas hypertension a fib on eliquis UTI with psudomonas and VRE Plan: this is a pleasant 68 yo F who presents with cellutitis and resp failure, pulmonary critical care team are following the pt. pt is on diuretics, uses BiPAP machine. continue with the same treatment , continue with symptomatic treatment , resume home medication , monitor lytes and vitals including glucose , cardiology consult is appreciated. . c/w same antibioitc . GI and DVT prophylaxis , further recommendation based upon pt clinical course and progress DVT prophylaxis eliquis GI prophylaxis Protonix Prognosis is guarded
[2018-09-24 12:01] LABS: Glucose,Whole Blood 150 mg/dL (75-99)
[2018-09-24] MEDS: DAPTOmycin 500 MG in SODIUM CHLORIDE 0.9% 50 ML IVPB SCH (12:14)
[2018-09-24 17:27] LABS: Glucose,Whole Blood 144 mg/dL (75-99)
[2018-09-24 21:34] LABS: Glucose,Whole Blood 172 mg/dL (75-99)
[2018-09-25] MEDS: ACETAMINOPHEN TAB 325 MG TAB PO PRN ×2 (00:01→13:06)
[2018-09-25 04:56] LABS: Anisocytosis Moderate; Basophils % (A) 0 %; Eosinophils # (A) 0.1 k/uL (0-0.7); Eosinophils % (A) 2 %; HCT 38.9 % (34.0-46.0); HGB 11.5 gm/dL (11.4-16.0); Hypochromasia Marked; Lymphocytes # (A) 1.7 k/uL (1.0-4.8); Lymphocytes % (A) 20 %; MCH 26.4 pg (25.0-35.0); MCHC 29.7 g/dL (31.0-37.0); MCV 89.1 fL (80.0-100.0); Mean Platelet Volume 8.1; Monocytes # (A) 0.5 k/uL (0-1.0); Monocytes % (A) 6 %; Neutrophils # (A) 5.7 k/uL (1.3-7.7); Neutrophils % (A) 69 %; Platelet Count 188 k/uL (150-450); Poikilocytosis Moderate; RBC 4.37 m/uL (3.80-5.40); RDW 22.2 % (11.5-15.5); WBC 8.3 k/uL (3.8-10.6)
[2018-09-25 05:01] LABS: Calcium 9.9 mg/dL (8.4-10.2); Magnesium 2.3 mg/dL (1.6-2.3); Phosphorus 3.3 mg/dL (2.5-4.5); Potassium 5.7 mmol/L (3.5-5.1)
--- NOTE | 2018-09-25 07:12 | XR ---
EXAMINATION TYPE: XR chest 1V DATE OF EXAM: 09/25/2018 HISTORY: Shortness of breath . REFERENCE: Previous study dated 09/24/2018. FINDINGS: Unfortunately, the patient's head and neck project over the upper chest. The heart remains enlarged. There is left basilar airspace disease. This may have improved slightly. There is vascular congestion and worsening interstitial change. IMPRESSION: WORSENING CHANGES OF CONGESTIVE HEART FAILURE.
[2018-09-25 07:15] LABS: Glucose,Whole Blood 106 mg/dL (75-99)
[2018-09-25] MEDS: IPRATROPIUM-ALBUTEROL 3 ML NEB INHALATION SCH ×4 (07:40→18:59)
[2018-09-25] MEDS: INSULIN ASPART 100 UNIT/ML 1 ML 10 ML VIAL SQ SCH ×4 (07:40→21:16)
[2018-09-25] MEDS: SYMBICORT 160-4.5 MCG INHALER INHALATION SCH ×2 (07:41→18:59)
[2018-09-25] MEDS: PANTOPRAZOLE 40 MG TABLET PO SCH (07:58)
[2018-09-25] MEDS: PIPERACILLIN-TAZOBACTAM 3.375 GM in SODIUM CHLORIDE 0.9% 100 ML IVPB SCH ×5 (07:58→23:07)
[2018-09-25] MEDS: HYDROcodone/APAP 5-325MG 1 EACH TAB PO PRN ×3 (07:58→23:06)
[2018-09-25] MEDS: APIXABAN 5 MG TAB PO SCH ×2 (08:02→21:07)
[2018-09-25] MEDS: METOPROLOL TARTRATE 50 MG TAB PO SCH ×2 (08:02→21:07)
[2018-09-25] MEDS: SPIRONOLACTONE 25 MG TAB PO SCH (08:02)
[2018-09-25] MEDS: FUROSEMIDE 10 MG/ML 4 ML VIAL IV SCH ×2 (08:02→22:02)
[2018-09-25] MEDS: DILTIAZEM ORAL 30 MG TAB PO SCH ×3 (08:02→22:02)
[2018-09-25] MEDS ORDERED: SODIUM POLYSTYRENE SULFONATE 15 GM/60 ML BOTTLE PO STA (09:31)
[2018-09-25 11:16] LABS: ABG Base Excess 22.3 mmol/L; ABG Oxygen Saturation 92.9 % (94-97); ABG PH 7.37 (7.35-7.45); ABG PO2 67 mmHg (83-108); ABG TCO2 50 mmol/L (19-24)
[2018-09-25 11:25] LABS: ABG HCO3 48 mmol/L (21-25); ABG PCO2 83 mmHg (35-45)
--- NOTE | 2018-09-25 11:35 | PN ---
PROGRESS NOTE HISTORY: Ms. Robertson is a lady with sleep apnea syndrome on BiPAP, who has chronic atrial fibrillation and is well anticoagulated. She is more alert today. Her potassium is up to 5.7. I am recommending that we discontinue Aldactone and give her 30 g of Kayexalate. Her CO2 content is still high and Dr. Bazan is going to back off on the diuresis. Cardiac-askew I would recommend that we continue current rate-lowering agents and Eliquis. No other intervention necessary. Vital signs are stable. S1 and S2 heard normally but distantly. Irregular rhythm noted. Lungs reveal improved air entry. Abdomen and lower extremity exams unchanged. Prognosis remains quite guarded for this lady with multiple comorbid conditions. MMODL / IJN: [id number] /
[2018-09-25 11:59] LABS: Glucose,Whole Blood 125 mg/dL (75-99)
[2018-09-25] MEDS: DAPTOmycin 500 MG in SODIUM CHLORIDE 0.9% 50 ML IVPB SCH (12:44)
--- NOTE | 2018-09-25 13:23 | P.PN ---
Subjective Progress Note Date: 09/25/18 O This is a 68-year-old female patient, morbidly obese presented to the hospital because of diminished level of consciousness and cellulitis of the lower extremity. The patient developed a large vesicle over the pretibial area and the right lower extremity and ultimately the vesicle pops and the patient had a large erythematous patch in the right lower extremity at the site of the previous vesicle with skin irregularity and ulceration. The patient has chronic lower extremity edema bilaterally. No reported fever or chills. Nevertheless the patient was becoming more lethargic. She came into the emergency department the patient was found to be hypoxic. Her initial pulse ox was in the mid/low 80s. The patient was placed immediately on BiPAP at a car to the patient is on BiPAP at a pressure of over 5 cm of water. He is also on a FiO2 of 50%. The chest x-ray is limited because of her body habitus. Nevertheless, the patient has no cough or sputum production. No reported chest pain. No sputum production. She was also started on accommodation of Rocephin and Zithromax suspecting an underlying pneumonia and she was admitted to the hospital. I saw this patient and I also talked to her daughter at the bedside. The concern is for now right lower extremity cellulitis. Started this patient IV Zosyn pending infectious disease consultation. I reviewed the blood gases from this morning and the results are as mentioned above. Despite ongoing diminished level of consciousness, the patient is arousable and she can follow commands and answer questions appropriately. My last encounter with this patient was in the office and at that time I checked her BiPAP machine which is set at a pressure of 14/7 cm of water. She was extremely compliant and her AHI while on treatment was less than 5 consistent with successful BiPAP therapy. The patient has a stable renal function with a creatinine of 1.25 and a time of admission. Her white cell count is 11.1. She has also station to pressure ulcer in her left buttocks. No aspiration. No chest pain. She is moving all 4 extremities without any limitation. On 09/20/2018 patient was noted to be somnolent, hard to arouse, repeat blood gas was obtained, and showed pO2 of 79, pCO2 of 97, and pH of 7.23, consistent with an acute on chronic hypercapnic respiratory failure. On clinical exam patient was quite somnolent, stuporous, decision was made to move the patient is a intensive care unit, she continues on IV diuretics, and 40 mg every 8 hours , her weight actually increased by 1.3 kg in the last 24 hours, patient did not have an indwelling catheter, and has been incontinent of large amount of urine, says hard to estimate. Lung sounds are extremely diminished, her tidal volume is 325 ML on the BiPAP support. BiPAP settings of 16/5, and FiO2 of 40%. X- ray was obtained, and showed cardiomegaly with bilateral consolidation, interstitial edema. Patient was seen in consultation by infectious disease service, she is getting local wound care to the lower extremity cellulitis, she is on antibiotic coverage in the form of Zosyn. Wound cultures are positive for presumptive staph aureus, and gram-negative bacilli, cultures are pending. Repeat blood gases in the intensive care unit showed him pO2 of 88, pCO2 of 85, and pH of 7.29, improving blood gases, patient is started to a more alert, and responsive. Sucks is 96% on FiO2 of 40%, she is afebrile, patient is atrial fibrillation, patient has history of chronic A. fib, she is anticoagulated with the Apixaban. On 09/21/2018 patient seen in follow-up in the intensive care unit, she wore the BiPAP most of the day yesterday, and during the night, she was able to tolerate nasal cannula trials for meals yesterday. Today's exam: Patient is awake and alert, in no acute distress. Afebrile, hemodynamically stable, lung sounds are diminished, no rhonchi or wheezes, today's chest x-ray has been reviewed by Dr. Bazan, and showed improved volume status. She is diuresing , remains on Lasix 40 mg every 8 hours, and she is in -1956 mL over the last 24 hours. Denies any chest pain, she is receiving local wound care to the left leg cellulitis, and she is covered with Zosyn, ID service is following. On 09/22/2018 patient seen in follow-up in intensive care unit, she is currently awake and alert, on 6 L per high flow nasal cannula, she is wearing a BiPAP most of the time in between meals and at bedtime. Patient is able to come off for mealtimes however she becomes lethargic afterwards and has to go back on BiPAP. Afebrile, no chills, hemodynamically stable, microbiology results have been reviewed, and showed MRSA and Pseudomonas in the wound culture , and VRE and Pseudomonas in the urine culture, blood cultures were negative. Patient is currently just on Zosyn, we will add daptomycin, she continues on IV Lasix, at 40 mg every 12 hours, and she is in negative fluid balance. Today's chest x-ray was reviewed by Dr. Bazan and showed congestive heart failure with mild pulmonary vessel congestion, moderate left pleural effusion and trace right pleural effusion and bibasilar airspace disease. On 09/23/2018 patient seen in follow-up in the intensive care unit, she is awake and alert, she is wearing BiPAP most of the time, she has been able to come off for meals. She is on IV diuretics, she is diuresing , she is in -971 mL fluid balance. In no acute distress. Current antibiotic coverage includes Zosyn and daptomycin, urine cultures showed MRSA and pseudomonas aeruginosa, and urine culture was positive for enterococcus faecium, mycin resistant and pseudomonas aeruginosa. Infectious disease service is following. His chest x- ray was reviewed by Dr. Bazan, and showed some residual left pleural effusion , findings of congestive heart failure improving. Labs have been reviewed, WBC is 6.9, hemoglobin is 11.7, sodium is 140 potassium is 5.8, chloride is 93, CO2 is 40, B1 is 87 and creatinine is 1.1. We'll give the patient 2 A of sodium bicarb for hyperkalemia related to respiratory acidosis On 09/24/2018 I see this patient in ICU. Overnight she was kept on a BiPAP and this morning she was switched to a 6 L about 2 by nasal cannula. A follow-up blood. This will follow. She is doing well. She has no specific complaints. He has been on IV antibiotics regarding the right lower extremity cellulitis. A follow-up blood gases is to follow today. Meanwhile, her blood work shows a component of metabolic alkalosis which is compensated at and a serum bicarb is up to 42. White cell count is not elevated. She is hemodynamically stable. She is being diuresed with IV Lasix. She is a negative fluid balance. She has produced approximately 2.6 L 40 yesterday and 3.1 L for today and she remains in a negative fluid balance for all these days. Tolerating his diet pH is moving all 4 extremities without any limitation. Serum potassium level is down to 4.9. On 09/25/2008 and I'm seeing this patient in follow-up in the intensive care unit. I took her off the BiPAP this morning and on 6 L of oxygen by nasal cannula and when the patient's blood gas showed a pH of 7.37 with a pCO2 of 83 and pO2 of 67. She is still using the BiPAP on and off during the day and continuously at nighttime. She is still being treated with daptomycin for a lower extremity cellulitis. No new complaints. Tolerating diet. Mental status is awake and alert. She follows commands and answering questions appropriately. She is a negative fluid balance as the patient is being dialyzed IV Lasix and the patient is a negative fluid balance of 1.7 L on 2017. No nausea. No vomiting. No abdominal pain. No fever. No chills. She is essentially sedentary. She is morbidly obese with a BMI of 71.8 and she is unable to ambulate at this point in time. Objective - Vital Signs Vital signs: Vital Signs Temp 97.4 F L 09/25/18 08:00 Pulse 98 09/25/18 13:00 Resp 28 H 09/25/18 13:00 BP 111/68 09/25/18 13:00 Pulse Ox 93 L 09/25/18 13:00 Intake & Output 09/24/18 09/25/18 09/25/18 18:59 06:59 18:59 Intake Total 1784 500 840 Output Total 1197 1006 1095 Balance 587 -506 -255 Weight 189.8 kg Intake: IV 480 280 240 0.9 Sodium Chloride 180 180 90 DAPTOmycin 500 mg In 100 100 50 Sodium Chloride 0.9% 50 ml @ 100 mls/hr IVPB Q24H [facility] Rx#:[id number] Piperacillin-Tazobactam 3 200 100 .375 gm In Sodium Chloride 0.9% 100 ml @ 25 mls/hr IVPB Q8HR [facility] Rx# :[id number] Oral 1304 220 600 Output: Urine 1195 1005 1095 Stool 2 1 Other: Voiding Method Indwelling Catheter Indwelling Catheter Indwelling Catheter # Bowel Movements 1 - Exam Gen: This is a 68-year-old morbidly obese female. The patient is awake, alert, on BiPAP support. She is able to follow commands. No focal neurological deficit at this point. The BiPAP was taken of this morning and she is currently on 6 L of oxygen by nasal cannula and awake and alert and she is following commands and answering questions appropriately. HEENT: Head is atraumatic, normocephalic. Pupils equal, round. Sclerae is anicteric. Conjunctiva slightly pale. NECK: Supple. No JVD. No lymphadenopathy. No thyromegaly. LUNGS: Diminished bilaterally No wheezes or rhonchi. No intercostal retractions. HEART: Irregularly irregular rate and rhythm. No murmur. Distant heart sounds. ABDOMEN: Soft. Bowel sounds are present. No masses. No tenderness. No redness under her abdominal fold. EXTREMITIES: 3+ bilateral pedal edema. Large dressing in place on the right lower extremity which was not removed for evaluation and there is a that skin overlying the anterior parker in the right lower extremity related to a previous burst of a vesicle. The underlying skin is quite erythematous and red and there is a very clear demarcation line which linares cellulitis. On today's evaluation, the cellulitis of the right lower extremity is improving. It is less erythematous compared to previous evaluations as the patient is being covered with broad-spectrum antibiotics. NEUROLOGICAL: Patient is awake, alert and oriented x3. Generalized weakness noted. No focal neurological deficits. - Labs CBC & Chem 7: 09/25/18 04:24 09/25/18 04:24 Labs: Abnormal Lab Results - Last 24 Hours (Table) 09/24/18 09/24/18 09/25/18 Range/Units 17:15 21:23 04:24 MCHC 29.7 L (31.0-37.0) g/dL RDW 22.2 H (11.5-15.5) % ABG pCO2 (35-45) mmHg ABG pO2 (83-108) mmHg ABG HCO3 (21-25) mmol/L ABG Total CO2 (19-24) mmol/L ABG O2 Saturation (94-97) % Potassium (3.5-5.1) mmol/L Chloride (98-107) mmol/L Carbon Dioxide (22-30) mmol/L BUN (7-17) mg/dL Glucose (74-99) mg/dL POC Glucose (mg/dL) 144 H 172 H (75-99) mg/dL 09/25/18 09/25/18 09/25/18 Range/Units 04:24 07:03 11:06 MCHC (31.0-37.0) g/dL RDW (11.5-15.5) % ABG pCO2 83 H* (35-45) mmHg ABG pO2 67 L (83-108) mmHg ABG HCO3 48 H* (21-25) mmol/L ABG Total CO2 50 H (19-24) mmol/L ABG O2 Saturation 92.9 L (94-97) % Potassium 5.7 H (3.5-5.1) mmol/L Chloride 93 L (98-107) mmol/L Carbon Dioxide 42 H* (22-30) mmol/L BUN 71 H (7-17) mg/dL Glucose 106 H (74-99) mg/dL POC Glucose (mg/dL) 106 H (75-99) mg/dL 09/25/18 Range/Units 11:47 MCHC (31.0-37.0) g/dL RDW (11.5-15.5) % ABG pCO2 (35-45) mmHg ABG pO2 (83-108) mmHg ABG HCO3 (21-25) mmol/L ABG Total CO2 (19-24) mmol/L ABG O2 Saturation (94-97) % Potassium (3.5-5.1) mmol/L Chloride (98-107) mmol/L Carbon Dioxide (22-30) mmol/L BUN (7-17) mg/dL Glucose (74-99) mg/dL POC Glucose (mg/dL) 125 H (75-99) mg/dL Microbiology - Last 24 Hours (Table) 09/19/18 15:26 Blood Culture - Preliminary Blood No Growth after 120 hours Assessment and Plan Plan: Assessment 1 acute cellulitis of the lower extremity in addition to a superficial ulceration secondary to previous edema/fluid seeping from the skin surface , the patient is currently on daptomycin and IV Zosyn. The patient had VRE and pseudomonas aeruginosa in the urine and MRSA and pseudomonas aeruginosa and the wound. The current antibiotic coverage is felt to be appropriate and the patient's right lower extremity cellulitis improving. The patient continues to receive local wound care to her right lower extremity. The patient is afebrile. The patient is hemodynamically stable. The patient is tolerating the antibiotics without any potential side effects. IV Zosyn on the case. 2 acute on chronic hypoxic and hypercapnic respiratory failure secondary to above. Patient was also treated for fluid overload. The most recent blood gas showed a compensated hypercapnic respiratory failure with a pH of 7.37 and a pCO2 of 83. The patient would benefit from some further diuretics with Lasix and I'm going to give her total dose of Diamox to avoid significant alkalosis development. 4 obesity hypoventilation syndrome 5 obstructive sleep apnea 6 severe restrictive lung disease secondary to morbid obesity 7 morbidly obese due to BMI of 71.8 8 chronic atrial fibrillation 9 hypertension 10 stage II chronic kidney disease 11 acid reflux 12 very poor baseline performance and functional status secondary to above- mentioned comorbidities. 13 recurrent cellulites of the lower extremities bilaterally Plan Patient will be staying on the same antibiotic coverage. Continue local wound care. Continue diuretics with IV Lasix for another 24 hours. Give 2 dose of Diamox to 50 mg IV. The patient will continue BiPAP on and off during the day. I think she is still quite critical and she may not do well on a medical floor. She needs close monitoring special with A Respiratory failure. If possible, which should be able to sit up on a recliner using our on left. Otherwise we'll continue our supportive care. Long-term prognosis poor based on the above-mentioned comorbidities. BiPAP is set at a pressure of 16/5 , FiO2 of 45%. Her renal function is stable.
--- NOTE | 2018-09-25 16:12 | P.PN ---
Subjective this is a pleasant 68 [facility] F [facility] of asthma/copd, a fib on eliquis, diastolic CHF, GERD, GI Bleed, hypertension who presents with dyepsnea, not relieved by BiPAP at home, she was recently visited ED for lower extremity rash. pt was admitted to ICU for acute on chronic hypoxic resp failure with some elements of fluid overload radha on cxr. pt has positive urine culture for enterococcus and gram negative bacilli. and wound culture that is positive for MRSA and pseudomonas. he mild leukocytosis on admission was resolved. creatinine 1.14. sugar is controlled. 09/22/2018 pt was seen and examined in the ICU, pt was still on BiPAP machine. pt still looks lethargic and tired , pt wound c/s: MRSA and pseudomonas, while UC: VRE and enterococcus and pseudomonas, pt was started on Daptomycin. pt is afebrile, her leukocytosis has resolved and WBC: 6.1K , bp is at acceptable range. rest of vital looks stable, pt is on BiPAP, her blood is still acidemic with PG 7.1 and PCO2 of 85. pt is been followed in the ICU by critical care team and their input is appreciated 09/23/2018 Patient remains in the ICU on CPAP/BiPAP machine, she has pain in the left lower extremity from her cellulitis which is the same since admission. Her blood pressure is stable and she is saturating 94% on 6 L nasal cannula. No leukocytosis and her CBC were unremarkable. Sodium 140. Potassium elevated at 5.8. Pulmonary team are following the patient and they gave the patient sodium bicarb And creatinine 1.1. Monitor potassium level 09/24/2018 Patient's seen and examined in the ICU today. She is feeling better and breathing is looks calm her. She is without the CPAP/BiPAP today. She was seen on nasal cannula saturation well and eating her breakfast daughter at bedside to help her. She still complaining from pain in her lower exudative slightly but she said that is been improving. She denies chest pain or dyspnea. No abdominal pain. No fever, little bit tachycardic. Blood pressure 120/80. Saturation 92% on 6 L. ABG done today showing pH of 7.3 with high pCO2 at 93. PO2 is 64. BMP showing sodium 138 with potassium 4.9 and high carbon dioxide at 42. Sugar looks controlled She is currently on daptomycin on positive urine and wound culture for pseudomonas, as well as MRSA in the leg and enterococcus in the urine 09/25/2018 Patient seen and examined in the ICU today. Patient has taken all the BiPAP oriented and she is more awake and breathing more easily compared to previous days. Her pain and lower extremity is better. Patient remains on a breathing treatment and daptomycin for her lower extremity cellulitis. However patient looks like still need to be monitored in the intensive care unit. REVIEW OF SYSTEMS: CONSTITUTIONAL: No fever, no malaise, no fatigue. HEENT: No recent visual problems or hearing problems. Denied any sore throat. CARDIOVASCULAR: no syncope. PULMONARY: no hemoptysis. GASTROINTESTINAL: No diarrhea, no nausea, no vomiting, no abdominal pain. Normoactive bowel sounds. NEUROLOGICAL: No headaches, no weakness, no numbness. HEMATOLOGICAL: Denies any bleeding or petechiae. GENITOURINARY: Denies any burning micturition, frequency, or urgency. MUSCULOSKELETAL/RHEUMATOLOGICAL: Denies any joint pain, swelling, or any muscle pain. ENDOCRINE: Denies any polyuria or polydipsia. Objective - Vital Signs Vital signs: Vital Signs Temp 97.4 F L 09/25/18 08:00 Pulse 89 09/25/18 15:37 Resp 63 H 09/25/18 15:00 BP 93/63 09/25/18 15:00 Pulse Ox 93 L 09/25/18 15:00 Intake & Output 09/24/18 09/25/18 09/25/18 18:59 06:59 18:59 Intake Total 4964 867 1673 Output Total 1197 1006 1325 Balance 587 -506 -305 Weight 189.8 kg Intake: IV 480 280 320 0.9 Sodium Chloride 180 180 120 DAPTOmycin 500 mg In 100 100 50 Sodium Chloride 0.9% 50 ml @ 100 mls/hr IVPB Q24H [facility] Rx#:[id number] Piperacillin-Tazobactam 3 200 150 .375 gm In Sodium Chloride 0.9% 100 ml @ 25 mls/hr IVPB Q8HR [facility] Rx# :[id number] Oral 1304 220 700 Output: Urine 1195 1005 1325 Stool 2 1 Other: Voiding Method Indwelling Catheter Indwelling Catheter Indwelling Catheter # Bowel Movements 1 - Exam GENERAL: The patient is alert and oriented x3, not in any acute distress. morbidly obese HEENT: Pupils are round and equally reacting to light. EOMI. No scleral icterus. No conjunctival pallor. Normocephalic, atraumatic. No pharyngeal erythema. No thyromegaly. CARDIOVASCULAR: S1 and S2 present. No murmurs, rubs, or gallops. PULMONARY: Chest is clear to auscultation, no wheezing or crackles. decreased breath sounds. ABDOMEN: Soft, nontender, nondistended, normoactive bowel sounds. No palpable organomegaly. MUSCULOSKELETAL: No joint swelling or deformity. EXTREMITIES: No cyanosis, clubbing, or pedal edema. NEUROLOGICAL: Gross neurological examination did not reveal any focal deficits. SKIN: right leg cellulitis - Labs CBC & Chem 7: 09/25/18 04:24 09/25/18 04:24 Labs: Abnormal Lab Results - Last 24 Hours (Table) 09/24/18 09/24/18 09/25/18 Range/Units 17:15 21:23 04:24 MCHC 29.7 L (31.0-37.0) g/dL RDW 22.2 H (11.5-15.5) % ABG pCO2 (35-45) mmHg ABG pO2 (83-108) mmHg ABG HCO3 (21-25) mmol/L ABG Total CO2 (19-24) mmol/L ABG O2 Saturation (94-97) % Potassium (3.5-5.1) mmol/L Chloride (98-107) mmol/L Carbon Dioxide (22-30) mmol/L BUN (7-17) mg/dL Glucose (74-99) mg/dL POC Glucose (mg/dL) 144 H 172 H (75-99) mg/dL 09/25/18 09/25/18 09/25/18 Range/Units 04:24 07:03 11:06 MCHC (31.0-37.0) g/dL RDW (11.5-15.5) % ABG pCO2 83 H* (35-45) mmHg ABG pO2 67 L (83-108) mmHg ABG HCO3 48 H* (21-25) mmol/L ABG Total CO2 50 H (19-24) mmol/L ABG O2 Saturation 92.9 L (94-97) % Potassium 5.7 H (3.5-5.1) mmol/L Chloride 93 L (98-107) mmol/L Carbon Dioxide 42 H* (22-30) mmol/L BUN 71 H (7-17) mg/dL Glucose 106 H (74-99) mg/dL POC Glucose (mg/dL) 106 H (75-99) mg/dL 09/25/18 Range/Units 11:47 MCHC (31.0-37.0) g/dL RDW (11.5-15.5) % ABG pCO2 (35-45) mmHg ABG pO2 (83-108) mmHg ABG HCO3 (21-25) mmol/L ABG Total CO2 (19-24) mmol/L ABG O2 Saturation (94-97) % Potassium (3.5-5.1) mmol/L Chloride (98-107) mmol/L Carbon Dioxide (22-30) mmol/L BUN (7-17) mg/dL Glucose (74-99) mg/dL POC Glucose (mg/dL) 125 H (75-99) mg/dL Microbiology - Last 24 Hours (Table) 09/19/18 15:26 Blood Culture - Preliminary Blood No Growth after 120 hours Assessment and Plan Assessment: acute on chronic resp failure hypoventilation obesity syndrome acute on chronic diastolic CHF cellulitis of the lower extremity with mrsa and psudomonas hypertension a fib on eliquis UTI with psudomonas and VRE Plan: this is a pleasant 68 yo F who presents with cellutitis and resp failure, pulmonary critical care team are following the pt. pt is on diuretics, uses BiPAP machine. continue with the same treatment , continue with symptomatic treatment , resume home medication , monitor lytes and vitals including glucose , cardiology consult is appreciated. . c/w same antibioitc . GI and DVT prophylaxis , further recommendation based upon pt clinical course and progress DVT prophylaxis eliquis GI prophylaxis Protonix Prognosis is guarded
[2018-09-25 17:01] LABS: Glucose,Whole Blood 116 mg/dL (75-99)
[2018-09-25 20:29] LABS: Glucose,Whole Blood 159 mg/dL (75-99)
[2018-09-25 20:52] LABS: Glucose,Whole Blood 153 mg/dL (75-99)
[2018-09-26] MEDS: INSULIN ASPART 100 UNIT/ML 1 ML 10 ML VIAL SQ SCH ×4 (07:10→21:21)
[2018-09-26 07:20] LABS: Glucose,Whole Blood 91 mg/dL (75-99)
[2018-09-26] MEDS: SYMBICORT 160-4.5 MCG INHALER INHALATION SCH ×2 (07:25→20:03)
[2018-09-26] MEDS: IPRATROPIUM-ALBUTEROL 3 ML NEB INHALATION SCH ×4 (07:25→20:01)
[2018-09-26 07:36] LABS: Glucose,Whole Blood 102 mg/dL (75-99)
--- NOTE | 2018-09-26 08:22 | XR ---
EXAMINATION TYPE: XR chest 1V portable DATE OF EXAM: 09/26/2018 COMPARISON: Prior chest x-ray 09/25/2018 HISTORY: Follow-up, abnormal chest x-ray TECHNIQUE: Single frontal view of the chest is obtained. FINDINGS: Heart remains enlarged, there are overlying cardiac leads. No evident pneumothorax. Patchy basilar density persists. Prominent interstitium is noted, some improvement in aeration suspected. IMPRESSION: Correlate for pulmonary venous hypertension and interstitial edema. Possible basilar ate lectasis versus edema, difficult to exclude small effusion, pneumonia, follow-up recommended.
[2018-09-26] MEDS: FUROSEMIDE 10 MG/ML 4 ML VIAL IV SCH ×2 (08:24→20:11)
[2018-09-26] MEDS: PIPERACILLIN-TAZOBACTAM 3.375 GM in SODIUM CHLORIDE 0.9% 100 ML IVPB SCH ×3 (08:24→23:47)
[2018-09-26] MEDS: PANTOPRAZOLE 40 MG TABLET PO SCH (08:24)
[2018-09-26] MEDS: DILTIAZEM ORAL 30 MG TAB PO SCH ×3 (08:24→21:20)
[2018-09-26] MEDS: METOPROLOL TARTRATE 50 MG TAB PO SCH ×2 (08:24→20:10)
[2018-09-26] MEDS: APIXABAN 5 MG TAB PO SCH ×2 (09:23→19:51)
[2018-09-26 09:42] LABS: ABG Base Excess 17.3 mmol/L; ABG Oxygen Saturation 96.1 % (94-97); ABG PO2 89 mmHg (83-108); ABG TCO2 46 mmol/L (19-24)
[2018-09-26 09:49] LABS: ABG HCO3 44 mmol/L (21-25)
[2018-09-26 10:25] LABS: Calcium 9.1 mg/dL (8.4-10.2); Magnesium 2.3 mg/dL (1.6-2.3); Phosphorus 3.8 mg/dL (2.5-4.5); Potassium 4.2 mmol/L (3.5-5.1)
[2018-09-26 10:27] LABS: ABG HCO3 49 mmol/L (21-25); ABG PCO2 93 mmHg (35-45)
[2018-09-26 10:30] LABS: INR 0.9 (<1.2); Prothrombin Time 9.9 sec (9.0-12.0)
[2018-09-26 10:33] LABS: Anisocytosis Moderate; Basophils % (A) 0 %; Eosinophils # (A) 0.1 k/uL (0-0.7); Eosinophils % (A) 1 %; HCT 40.2 % (34.0-46.0); HGB 11.7 gm/dL (11.4-16.0); Hypochromasia Marked; Lymphocytes % (A) 11 %; MCH 26.5 pg (25.0-35.0); MCV 91.4 fL (80.0-100.0); Macrocytosis Slight; Mean Platelet Volume 8.1; Monocytes # (A) 0.6 k/uL (0-1.0); Monocytes % (A) 6 %; Neutrophils # (A) 7.3 k/uL (1.3-7.7); Neutrophils % (A) 79 %; Platelet Count 194 k/uL (150-450); Poikilocytosis Moderate; RDW 21.6 % (11.5-15.5); WBC 9.2 k/uL (3.8-10.6)
[2018-09-26 11:04] LABS: Polychromasia Present
[2018-09-26] MEDS: DAPTOmycin 500 MG in SODIUM CHLORIDE 0.9% 50 ML IVPB SCH (11:41)
[2018-09-26 12:09] LABS: Glucose,Whole Blood 102 mg/dL (75-99)
--- NOTE | 2018-09-26 12:39 | P.PN ---
Subjective Progress Note Date: 09/26/18 Principal diagnosis: Acute on chronic hypoxic and hypercapnic respiratory failure, multifactorial. O This is a 68-year-old female patient, morbidly obese presented to the hospital because of diminished level of consciousness and cellulitis of the lower extremity. The patient developed a large vesicle over the pretibial area and the right lower extremity and ultimately the vesicle pops and the patient had a large erythematous patch in the right lower extremity at the site of the previous vesicle with skin irregularity and ulceration. The patient has chronic lower extremity edema bilaterally. No reported fever or chills. Nevertheless the patient was becoming more lethargic. She came into the emergency department the patient was found to be hypoxic. Her initial pulse ox was in the mid/low 80s. The patient was placed immediately on BiPAP at a car to the patient is on BiPAP at a pressure of over 5 cm of water. He is also on a FiO2 of 50%. The chest x-ray is limited because of her body habitus. Nevertheless, the patient has no cough or sputum production. No reported chest pain. No sputum production. She was also started on accommodation of Rocephin and Zithromax suspecting an underlying pneumonia and she was admitted to the hospital. I saw this patient and I also talked to her daughter at the bedside. The concern is for now right lower extremity cellulitis. Started this patient IV Zosyn pending infectious disease consultation. I reviewed the blood gases from this morning and the results are as mentioned above. Despite ongoing diminished level of consciousness, the patient is arousable and she can follow commands and answer questions appropriately. My last encounter with this patient was in the office and at that time I checked her BiPAP machine which is set at a pressure of 14/7 cm of water. She was extremely compliant and her AHI while on treatment was less than 5 consistent with successful BiPAP therapy. The patient has a stable renal function with a creatinine of 1.25 and a time of admission. Her white cell count is 11.1. She has also station to pressure ulcer in her left buttocks. No aspiration. No chest pain. She is moving all 4 extremities without any limitation. On 09/20/2018 patient was noted to be somnolent, hard to arouse, repeat blood gas was obtained, and showed pO2 of 79, pCO2 of 97, and pH of 7.23, consistent with an acute on chronic hypercapnic respiratory failure. On clinical exam patient was quite somnolent, stuporous, decision was made to move the patient is a intensive care unit, she continues on IV diuretics, and 40 mg every 8 hours , her weight actually increased by 1.3 kg in the last 24 hours, patient did not have an indwelling catheter, and has been incontinent of large amount of urine, says hard to estimate. Lung sounds are extremely diminished, her tidal volume is 325 ML on the BiPAP support. BiPAP settings of 16/5, and FiO2 of 40%. X- ray was obtained, and showed cardiomegaly with bilateral consolidation, interstitial edema. Patient was seen in consultation by infectious disease service, she is getting local wound care to the lower extremity cellulitis, she is on antibiotic coverage in the form of Zosyn. Wound cultures are positive for presumptive staph aureus, and gram-negative bacilli, cultures are pending. Repeat blood gases in the intensive care unit showed him pO2 of 88, pCO2 of 85, and pH of 7.29, improving blood gases, patient is started to a more alert, and responsive. Sucks is 96% on FiO2 of 40%, she is afebrile, patient is atrial fibrillation, patient has history of chronic A. fib, she is anticoagulated with the Apixaban. On 09/21/2018 patient seen in follow-up in the intensive care unit, she wore the BiPAP most of the day yesterday, and during the night, she was able to tolerate nasal cannula trials for meals yesterday. Today's exam: Patient is awake and alert, in no acute distress. Afebrile, hemodynamically stable, lung sounds are diminished, no rhonchi or wheezes, today's chest x-ray has been reviewed by Dr. Bazan, and showed improved volume status. She is diuresing , remains on Lasix 40 mg every 8 hours, and she is in -1956 mL over the last 24 hours. Denies any chest pain, she is receiving local wound care to the left leg cellulitis, and she is covered with Zosyn, ID service is following. On 09/22/2018 patient seen in follow-up in intensive care unit, she is currently awake and alert, on 6 L per high flow nasal cannula, she is wearing a BiPAP most of the time in between meals and at bedtime. Patient is able to come off for mealtimes however she becomes lethargic afterwards and has to go back on BiPAP. Afebrile, no chills, hemodynamically stable, microbiology results have been reviewed, and showed MRSA and Pseudomonas in the wound culture , and VRE and Pseudomonas in the urine culture, blood cultures were negative. Patient is currently just on Zosyn, we will add daptomycin, she continues on IV Lasix, at 40 mg every 12 hours, and she is in negative fluid balance. Today's chest x-ray was reviewed by Dr. Bazan and showed congestive heart failure with mild pulmonary vessel congestion, moderate left pleural effusion and trace right pleural effusion and bibasilar airspace disease. On 09/23/2018 patient seen in follow-up in the intensive care unit, she is awake and alert, she is wearing BiPAP most of the time, she has been able to come off for meals. She is on IV diuretics, she is diuresing , she is in -971 mL fluid balance. In no acute distress. Current antibiotic coverage includes Zosyn and daptomycin, urine cultures showed MRSA and pseudomonas aeruginosa, and urine culture was positive for enterococcus faecium, mycin resistant and pseudomonas aeruginosa. Infectious disease service is following. His chest x- ray was reviewed by Dr. Bazan, and showed some residual left pleural effusion , findings of congestive heart failure improving. Labs have been reviewed, WBC is 6.9, hemoglobin is 11.7, sodium is 140 potassium is 5.8, chloride is 93, CO2 is 40, B1 is 87 and creatinine is 1.1. We'll give the patient 2 A of sodium bicarb for hyperkalemia related to respiratory acidosis On 09/24/2018 I see this patient in ICU. Overnight she was kept on a BiPAP and this morning she was switched to a 6 L about 2 by nasal cannula. A follow-up blood. This will follow. She is doing well. She has no specific complaints. He has been on IV antibiotics regarding the right lower extremity cellulitis. A follow-up blood gases is to follow today. Meanwhile, her blood work shows a component of metabolic alkalosis which is compensated at and a serum bicarb is up to 42. White cell count is not elevated. She is hemodynamically stable. She is being diuresed with IV Lasix. She is a negative fluid balance. She has produced approximately 2.6 L 40 yesterday and 3.1 L for today and she remains in a negative fluid balance for all these days. Tolerating his diet pH is moving all 4 extremities without any limitation. Serum potassium level is down to 4.9. On 09/25/2008 and I'm seeing this patient in follow-up in the intensive care unit. I took her off the BiPAP this morning and on 6 L of oxygen by nasal cannula and when the patient's blood gas showed a pH of 7.37 with a pCO2 of 83 and pO2 of 67. She is still using the BiPAP on and off during the day and continuously at nighttime. She is still being treated with daptomycin for a lower extremity cellulitis. No new complaints. Tolerating diet. Mental status is awake and alert. She follows commands and answering questions appropriately. She is a negative fluid balance as the patient is being dialyzed IV Lasix and the patient is a negative fluid balance of 1.7 L on 2017. No nausea. No vomiting. No abdominal pain. No fever. No chills. She is essentially sedentary. She is morbidly obese with a BMI of 71.8 and she is unable to ambulate at this point in time. Patient was reevaluated today on 09/26/2018, remains in the ICU, presently on 5 L nasal cannula, and she was on BiPAP last night. ABG this morning on 6 L nasal cannula showed a pO2 of 89, pCO2 of 89 pH of 7.30. Her other labs were reviewed, patient is basically about the same, she is laying in bed, lethargic, however she is definitely arousable. Patient remains in the intensive care unit. Definitely has no complaints. Follows commands, answers questions appropriately, she is morbidly obese, BMI of 71.8. Bedridden and she does not ambulate. Chest x-ray today continues to show enlarged heart, patchy basilar density persists, prominent interstitial markings. Some improvement in aeration overall. Objective - Vital Signs Vital signs: Vital Signs Temp 98.7 F 09/26/18 08:00 Pulse 86 09/26/18 11:05 Resp 25 H 09/26/18 10:00 BP 113/59 09/26/18 10:00 Pulse Ox 92 L 09/26/18 10:00 Intake & Output 1209/26/18 09/26/18 18:59 06:59 18:59 Intake Total 1255 450 405 Output Total 1515 965 610 Balance -260 -515 -205 Weight 185.5 kg Intake: IV 415 280 225 0.9 Sodium Chloride 165 180 75 DAPTOmycin 500 mg In 50 50 Sodium Chloride 0.9% 50 ml @ 100 mls/hr IVPB Q24H [facility] Rx#:[id number] Piperacillin-Tazobactam 3 200 100 100 .375 gm In Sodium Chloride 0.9% 100 ml @ 25 mls/hr IVPB Q8HR [facility] Rx# :[id number] Oral 840 170 180 Output: Urine 1515 965 610 Other: Voiding Method Indwelling Catheter Indwelling Catheter Indwelling Catheter - Exam GENERAL: The patient is morbidly obese, lethargic, arousable and follows instructions. Head: Atraumatic, normocephalic. HEENT: Pupils are round and equally reacting to light. EOMI. No scleral icterus. No conjunctival pallor. Normocephalic, atraumatic. No pharyngeal erythema. No thyromegaly. CARDIOVASCULAR: S1 and S2 present. No murmurs, rubs, or gallops. PULMONARY: Extremely diminished breath sound bilaterally, no rhonchi and no wheezes. ABDOMEN: Soft, nontender, nondistended, normoactive bowel sounds. No palpable organomegaly. MUSCULOSKELETAL: No joint swelling or deformity. EXTREMITIES: No cyanosis, clubbing, or pedal edema. NEUROLOGICAL: Lethargic, arousable, follows instructions. Moves all extremities. No gross focal neurologic deficit. SKIN: right leg cellulitis, both legs are wrapped with sterile dressings. - Labs CBC & Chem 7: 09/26/18 09:43 09/26/18 09:43 Labs: Abnormal Lab Results - Last 24 Hours (Table) 09/24/18 09/25/18 09/25/18 Range/Units 10:00 16:50 20:17 MCHC (31.0-37.0) g/dL RDW (11.5-15.5) % ABG pH (7.35-7.45) ABG pCO2 93 H* (35-45) mmHg ABG HCO3 49 H* (21-25) mmol/L ABG Total CO2 (19-24) mmol/L Chloride (98-107) mmol/L Carbon Dioxide (22-30) mmol/L BUN (7-17) mg/dL Creatinine (0.52-1.04) mg/dL Glucose (74-99) mg/dL POC Glucose (mg/dL) 116 H 159 H (75-99) mg/dL 09/25/18 09/26/18 09/26/18 Range/Units 20:40 07:24 09:40 MCHC (31.0-37.0) g/dL RDW (11.5-15.5) % ABG pH 7.30 L (7.35-7.45) ABG pCO2 89 H* (35-45) mmHg ABG HCO3 44 H* (21-25) mmol/L ABG Total CO2 46 H (19-24) mmol/L Chloride (98-107) mmol/L Carbon Dioxide (22-30) mmol/L BUN (7-17) mg/dL Creatinine (0.52-1.04) mg/dL Glucose (74-99) mg/dL POC Glucose (mg/dL) 153 H 102 H (75-99) mg/dL 09/26/18 09/26/18 09/26/18 Range/Units 09:43 09:43 11:58 MCHC 29.0 L (31.0-37.0) g/dL RDW 21.6 H (11.5-15.5) % ABG pH (7.35-7.45) ABG pCO2 (35-45) mmHg ABG HCO3 (21-25) mmol/L ABG Total CO2 (19-24) mmol/L Chloride 91 L (98-107) mmol/L Carbon Dioxide 44 H* (22-30) mmol/L BUN 48 H (7-17) mg/dL Creatinine 1.20 H (0.52-1.04) mg/dL Glucose 127 H (74-99) mg/dL POC Glucose (mg/dL) 102 H (75-99) mg/dL Microbiology - Last 24 Hours (Table) 09/19/18 15:26 Blood Culture - Final Blood No Growth after 144 hours Assessment and Plan Assessment: Impression: 1 acute on chronic hypoxic and hypercapnic respiratory failure secondary to obesity/hypoventilation syndrome, obstructive sleep apnea syndrome, restrictive lung disease, 2 acute cellulitis, remains on daptomycin and IV Zosyn. Patient had VRE and Pseudomonas in the urine and MRSA with pseudomonas and the wounds. Remains on appropriate antibiotics coverage. 3 obesity/hypoventilation syndrome 4 severe restrictive lung disease secondary to morbid obesity 5 multiple comorbidities including hypertension, chronic atrial fibrillation, stage II chronic kidney disease, recurrent cellulitis of lower extremities bilaterally and poor performance and functional status secondary to above comorbidities. Recommendation: Continue present supportive care measures, I am not certain that I could move her yet the ICU at this point, I will monitor the patient for the next 24 hours, cut down her FiO2 to 4 L via nasal cannula, will continue to use BiPAP at night, overall prognosis is definitely poor and guarded, I would have to discuss with her daughter the CODE STATUS and the patient should be DO NOT RESUSCITATE at this point. Overall prognosis is definitely poor and guarded. We'll continue to follow Time with Patient: Less than 30
[2018-09-26] MEDS: ACETAMINOPHEN TAB 325 MG TAB PO PRN (13:28)
--- NOTE | 2018-09-26 13:51 | P.PN ---
Subjective this is [facility] 68 [facility], a fib on eliquis, diastolic CHF, GERD, GI Bleed, hypertension who presents with dyepsnea, not relieved by BiPAP at home, she was recently visited ED for lower extremity rash. pt was admitted to ICU for acute on chronic hypoxic resp failure with some elements of fluid overload radha on cxr. pt has positive urine culture for enterococcus and gram negative bacilli. and wound culture that is positive for MRSA and pseudomonas. he mild leukocytosis on admission was resolved. creatinine 1.14. sugar is controlled. 09/22/2018 pt was seen and examined in the ICU, pt was still on BiPAP machine. pt still looks lethargic and tired , pt wound c/s: MRSA and pseudomonas, while UC: VRE and enterococcus and pseudomonas, pt was started on Daptomycin. pt is afebrile, her leukocytosis has resolved and WBC: 6.1K , bp is at acceptable range. rest of vital looks stable, pt is on BiPAP, her blood is still acidemic with PG 7.1 and PCO2 of 85. pt is been followed in the ICU by critical care team and their input is appreciated 09/23/2018 Patient remains in the ICU on CPAP/BiPAP machine, she has pain in the left lower extremity from her cellulitis which is the same since admission. Her blood pressure is stable and she is saturating 94% on 6 L nasal cannula. No leukocytosis and her CBC were unremarkable. Sodium 140. Potassium elevated at 5.8. Pulmonary team are following the patient and they gave the patient sodium bicarb And creatinine 1.1. Monitor potassium level 09/24/2018 Patient's seen and examined in the ICU today. She is feeling better and breathing is looks calm her. She is without the CPAP/BiPAP today. She was seen on nasal cannula saturation well and eating her breakfast daughter at bedside to help her. She still complaining from pain in her lower exudative slightly but she said that is been improving. She denies chest pain or dyspnea. No abdominal pain. No fever, little bit tachycardic. Blood pressure 120/80. Saturation 92% on 6 L. ABG done today showing pH of 7.3 with high pCO2 at 93. PO2 is 64. BMP showing sodium 138 with potassium 4.9 and high carbon dioxide at 42. Sugar looks controlled She is currently on daptomycin on positive urine and wound culture for pseudomonas, as well as MRSA in the leg and enterococcus in the urine 09/25/2018 Patient seen and examined in the ICU today. Patient has taken all the BiPAP oriented and she is more awake and breathing more easily compared to previous days. Her pain and lower extremity is better. Patient remains on a breathing treatment and daptomycin for her lower extremity cellulitis. However patient looks like still need to be monitored in the intensive care unit. Patient remains on daptomycin for MRSA and pseudomonas infection as well as enterococcus in the urine. 09/26/2018 Patient remains in the ICU, she is off BiPAP. Her breathing is slowly improving. Saturation 92-95% on 6 L nasal cannula. Pain in the lower extremity. CBC was unremarkable however during the ABG she is has pH of 7.3 with high pCO2 at 89%. With high bicarb and BMP at 44 REVIEW OF SYSTEMS: CONSTITUTIONAL: No fever, no malaise, no fatigue. HEENT: No recent visual problems or hearing problems. Denied any sore throat. CARDIOVASCULAR: no syncope. PULMONARY: no hemoptysis. GASTROINTESTINAL: No diarrhea, no nausea, no vomiting, no abdominal pain. Normoactive bowel sounds. NEUROLOGICAL: No headaches, no weakness, no numbness. HEMATOLOGICAL: Denies any bleeding or petechiae. GENITOURINARY: Denies any burning micturition, frequency, or urgency. MUSCULOSKELETAL/RHEUMATOLOGICAL: Denies any joint pain, swelling, or any muscle pain. ENDOCRINE: Denies any polyuria or polydipsia. Objective - Vital Signs Vital signs: Vital Signs Temp 98.7 F 09/26/18 08:00 Pulse 86 09/26/18 11:05 Resp 25 H 09/26/18 10:00 BP 113/59 09/26/18 10:00 Pulse Ox 92 L 09/26/18 10:00 Intake & Output 09/25/18 09/26/18 09/26/18 18:59 06:59 18:59 Intake Total 1255 450 405 Output Total 1515 965 610 Balance -260 -515 -205 Weight 185.5 kg Intake: IV 415 280 225 0.9 Sodium Chloride 165 180 75 DAPTOmycin 500 mg In 50 50 Sodium Chloride 0.9% 50 ml @ 100 mls/hr IVPB Q24H [facility] Rx#:[id number] Piperacillin-Tazobactam 3 200 100 100 .375 gm In Sodium Chloride 0.9% 100 ml @ 25 mls/hr IVPB Q8HR [facility] Rx# :[id number] Oral 840 170 180 Output: Urine 1515 965 610 Other: Voiding Method Indwelling Catheter Indwelling Catheter Indwelling Catheter - Exam GENERAL: The patient is alert and oriented x3, not in any acute distress. morbidly obese HEENT: Pupils are round and equally reacting to light. EOMI. No scleral icterus. No conjunctival pallor. Normocephalic, atraumatic. No pharyngeal erythema. No thyromegaly. CARDIOVASCULAR: S1 and S2 present. No murmurs, rubs, or gallops. PULMONARY: Chest is clear to auscultation, no wheezing or crackles. decreased breath sounds. ABDOMEN: Soft, nontender, nondistended, normoactive bowel sounds. No palpable organomegaly. MUSCULOSKELETAL: No joint swelling or deformity. EXTREMITIES: No cyanosis, clubbing, or pedal edema. NEUROLOGICAL: Gross neurological examination did not reveal any focal deficits. SKIN: right leg cellulitis - Labs CBC & Chem 7: 09/26/18 09:43 09/26/18 09:43 Labs: Abnormal Lab Results - Last 24 Hours (Table) 09/24/18 09/25/18 09/25/18 Range/Units 10:00 16:50 20:17 MCHC (31.0-37.0) g/dL RDW (11.5-15.5) % ABG pH (7.35-7.45) ABG pCO2 93 H* (35-45) mmHg ABG HCO3 49 H* (21-25) mmol/L ABG Total CO2 (19-24) mmol/L Chloride (98-107) mmol/L Carbon Dioxide (22-30) mmol/L BUN (7-17) mg/dL Creatinine (0.52-1.04) mg/dL Glucose (74-99) mg/dL POC Glucose (mg/dL) 116 H 159 H (75-99) mg/dL 09/25/18 09/26/18 09/26/18 Range/Units 20:40 07:24 09:40 MCHC (31.0-37.0) g/dL RDW (11.5-15.5) % ABG pH 7.30 L (7.35-7.45) ABG pCO2 89 H* (35-45) mmHg ABG HCO3 44 H* (21-25) mmol/L ABG Total CO2 46 H (19-24) mmol/L Chloride (98-107) mmol/L Carbon Dioxide (22-30) mmol/L BUN (7-17) mg/dL Creatinine (0.52-1.04) mg/dL Glucose (74-99) mg/dL POC Glucose (mg/dL) 153 H 102 H (75-99) mg/dL 09/26/18 09/26/18 09/26/18 Range/Units 09:43 09:43 11:58 MCHC 29.0 L (31.0-37.0) g/dL RDW 21.6 H (11.5-15.5) % ABG pH (7.35-7.45) ABG pCO2 (35-45) mmHg ABG HCO3 (21-25) mmol/L ABG Total CO2 (19-24) mmol/L Chloride 91 L (98-107) mmol/L Carbon Dioxide 44 H* (22-30) mmol/L BUN 48 H (7-17) mg/dL Creatinine 1.20 H (0.52-1.04) mg/dL Glucose 127 H (74-99) mg/dL POC Glucose (mg/dL) 102 H (75-99) mg/dL Microbiology - Last 24 Hours (Table) 09/19/18 15:26 Blood Culture - Final Blood No Growth after 144 hours Assessment and Plan Assessment: acute on chronic resp failure hypoventilation obesity syndrome acute on chronic diastolic CHF cellulitis of the lower extremity with mrsa and psudomonas hypertension a fib on eliquis UTI with psudomonas and VRE Plan: this is a pleasant 68 yo F who presents with cellutitis and resp failure, pulmonary critical care team are following the pt. pt is on diuretics, uses BiPAP machine. continue with the same treatment , continue with symptomatic treatment , resume home medication , monitor lytes and vitals including glucose , cardiology consult is appreciated. . c/w same antibioitc . GI and DVT prophylaxis , further recommendation based upon pt clinical course and progress DVT prophylaxis eliquis GI prophylaxis Protonix Prognosis is guarded
--- NOTE | 2018-09-26 16:45 | PN ---
PROGRESS NOTE Mrs. Robertson is a lady with obstructive sleep apnea, morbid obesity, who uses BiPAP. She is getting a PICC line, and therefore Eliquis is being held for 48 hours. She remains in atrial fibrillation. Rate control is good. S1, S2 heard normally but distantly. Lungs reveal improved air entry. Abdomen and lower extremity exam is unchanged. I recommend that we resume Eliquis once the PICC line is in and continue the medications for rate control. I will continue to see the patient as needed. MMODL / IJN: [id number] /
[2018-09-26 17:11] LABS: Glucose,Whole Blood 206 mg/dL (75-99)
[2018-09-26] MEDS: HYDROcodone/APAP 5-325MG 1 EACH TAB PO PRN (20:08)
[2018-09-26 21:07] LABS: Glucose,Whole Blood 186 mg/dL (75-99)
--- NOTE | 2018-09-26 22:00 | P.PN ---
Subjective Progress Note Date: 09/26/18 This is a 68-year-old female well-known to ID service as she has been seen in the past for chronic wounds and she has frequent admissions for heart failure with history of morbid obesity and lower extremity edema. Patient's daughters states that her breathing status has been stable. She is normally on O2 at 4 L nasal cannula since her last hospitalization. She uses a BiPAP at night. Patient developed a bubble type wound to the right pretibial area which her daughter states was a size of a thumbnail last week. This area continued to swell and reddened and she came into [facility] emergency center on was diagnosed with cellulitis and sent home on Keflex 500 mg every 6 hours for 5 days. This large blister has been popping on its own and then refilling with fluid almost daily and has increased in size to encompass almost the entire pretibial area. She denies that her mother has had any fever or chills. No problem with swallowing, bowel movements a been normal no blood in her stools or no diarrhea. She has urinating but decreased output over the past couple days. Patient had a drop in her pulse ox last night 85 when she was put on BiPAP it dropped down to 70%. EMS was called and patient was brought into [facility] emergency center for evaluation of acute hypoxic respiratory failure and acute diastolic heart failure. Chest x- ray showed CHF unchanged with moderate cardiomegaly. Her respiratory rate was 40, she was afebrile, her initial pulse ox was 69%. White count 11.1, creatinine 1.25. She was started on IV Lasix azithromycin and Solu-Medrol and admitted to the cardiac stepdown unit. There is a consult in place with pulmonary medicine. Patient also presented with stage II pressure ulcer left buttock. Patient is currently on BiPAP and states that she is feeling better since she came in. She is able to nod to answer questions. She is currently wheelchair bound and lives with her daughter. 09/22/2018 patient remains in intensive care unit on BiPAP with ongoing significant acidosis and hypercapnic Respiratory failure. The drainage from the right leg is markedly diminished and she is briefly arousable at times. She is in a negative fluid balance and seems to be feeling slightly better. But remains chronically and somewhat profoundly ill. 09/23/2018 patient is currently off of BiPAP therapy, this is the first time I have not evaluated her when she is not on BiPAP. She is able to relate a few sentences but does drift asleep quite readily. She does not have significant complaint 09/26/2018 patient is having bouts off of her BiPAP, refusing to have it replaced although she is sleeping at times. She is comfortable and there are no other new acute complaints related. Lower extremity edema is improved with current local care. Objective - Vital Signs Vital signs: Vital Signs Temp 98.5 F 09/26/18 20:00 Pulse 86 09/26/18 21:00 Resp 24 09/26/18 21:00 BP 103/71 09/26/18 21:00 Pulse Ox 91 L 09/26/18 21:00 Intake & Output 09/26/18 09/26/18 09/27/18 06:59 18:59 06:59 Intake Total 450 870 45 Output Total 965 1310 325 Balance -515 -440 -280 Weight 185.5 kg 185.5 kg Intake: IV 280 330 45 0.9 Sodium Chloride 180 180 45 DAPTOmycin 500 mg In 50 Sodium Chloride 0.9% 50 ml @ 100 mls/hr IVPB Q24H [facility] Rx#:[id number] Piperacillin-Tazobactam 3 100 100 .375 gm In Sodium Chloride 0.9% 100 ml @ 25 mls/hr IVPB Q8HR [facility] Rx# :[id number] Oral 170 540 Output: Urine 965 1310 325 Other: Voiding Method Indwelling Catheter Indwelling Catheter Indwelling Catheter - Exam Gen: This is a 68-year-old morbidly obese female. She is sitting upright in bed no BiPAP at this time and did communicate. HEENT: Head is atraumatic, normocephalic. Pupils equal, round. Sclerae is anicteric. Conjunctiva slightly pale. NECK: Supple. No JVD. No lymphadenopathy. No thyromegaly. LUNGS: Diminished bilaterally few expiratory wheezes are heard no brenden bronchial sounds lungs sounds are distant HEART: Irregularly irregular rate and rhythm. No murmur. Distant heart sounds. ABDOMEN: Obese Soft. Bowel sounds are present. No masses. No tenderness. No redness under her abdominal fold. EXTREMITIES: 3+ bilateral pedal edema. Large dressing in place on the right lower extremity which was not removed for evaluation and referred to Dr. Shepherd.. NEUROLOGICAL: She is arousable and follows simple commands briefly and falls back to sleep - Labs CBC & Chem 7: 09/26/18 09:43 09/26/18 09:43 Labs: Abnormal Lab Results - Last 24 Hours (Table) 09/24/18 09/26/18 09/26/18 Range/Units 10:00 07:24 09:40 MCHC (31.0-37.0) g/dL RDW (11.5-15.5) % ABG pH 7.30 L (7.35-7.45) ABG pCO2 93 H* 89 H* (35-45) mmHg ABG HCO3 49 H* 44 H* (21-25) mmol/L ABG Total CO2 46 H (19-24) mmol/L Chloride (98-107) mmol/L Carbon Dioxide (22-30) mmol/L BUN (7-17) mg/dL Creatinine (0.52-1.04) mg/dL Glucose (74-99) mg/dL POC Glucose (mg/dL) 102 H (75-99) mg/dL 09/26/18 09/26/18 09/26/18 Range/Units 09:43 09:43 11:58 MCHC 29.0 L (31.0-37.0) g/dL RDW 21.6 H (11.5-15.5) % ABG pH (7.35-7.45) ABG pCO2 (35-45) mmHg ABG HCO3 (21-25) mmol/L ABG Total CO2 (19-24) mmol/L Chloride 91 L (98-107) mmol/L Carbon Dioxide 44 H* (22-30) mmol/L BUN 48 H (7-17) mg/dL Creatinine 1.20 H (0.52-1.04) mg/dL Glucose 127 H (74-99) mg/dL POC Glucose (mg/dL) 102 H (75-99) mg/dL 09/26/18 09/26/18 Range/Units 16:59 20:56 MCHC (31.0-37.0) g/dL RDW (11.5-15.5) % ABG pH (7.35-7.45) ABG pCO2 (35-45) mmHg ABG HCO3 (21-25) mmol/L ABG Total CO2 (19-24) mmol/L Chloride (98-107) mmol/L Carbon Dioxide (22-30) mmol/L BUN (7-17) mg/dL Creatinine (0.52-1.04) mg/dL Glucose (74-99) mg/dL POC Glucose (mg/dL) 206 H 186 H (75-99) mg/dL Microbiology - Last 24 Hours (Table) 09/19/18 15:26 Blood Culture - Final Blood No Growth after 144 hours Laboratory Results WBC 9.2 k/uL (3.8-10.6) 09/26/18 09:43 RBC 4.40 m/uL (3.80-5.40) 09/26/18 09:43 Hgb 11.7 gm/dL (11.4-16.0) 09/26/18 09:43 Hct 40.2 % (34.0-46.0) 09/26/18 09:43 MCV 91.4 fL (80.0-100.0) 09/26/18 09:43 MCH 26.5 pg (25.0-35.0) 09/26/18 09:43 MCHC 29.0 g/dL (31.0-37.0) L 09/26/18 09:43 RDW 21.6 % (11.5-15.5) H 09/26/18 09:43 Plt Count 194 k/uL (150-450) 09/26/18 09:43 Neutrophils % 79 % 09/26/18 09:43 Lymphocytes % 11 % 09/26/18 09:43 Monocytes % 6 % 09/26/18 09:43 Eosinophils % 1 % 09/26/18 09:43 Basophils % 0 % 09/26/18 09:43 Neutrophils # 7.3 k/uL (1.3-7.7) 09/26/18 09:43 Lymphocytes # 1.0 k/uL (1.0-4.8) 09/26/18 09:43 Monocytes # 0.6 k/uL (0-1.0) 09/26/18 09:43 Eosinophils # 0.1 k/uL (0-0.7) 09/26/18 09:43 Basophils # 0.0 k/uL (0-0.2) 09/26/18 09:43 Manual Slide Review Performed 09/26/18 09:43 Polychromasia Present 09/26/18 09:43 Hypochromasia Marked 09/26/18 09:43 Poikilocytosis Moderate 09/26/18 09:43 Anisocytosis Moderate 09/26/18 09:43 Microcytosis Slight 09/22/18 05:15 Macrocytosis Slight 09/26/18 09:43 PT 9.9 sec (9.0-12.0) 09/26/18 09:43 INR 0.9 (<1.2) 09/26/18 09:43 APTT 20.9 sec (22.0-30.0) L 09/18/18 16:45 Sample Site lbrac 09/26/18 09:40 ABG pH 7.30 (7.35-7.45) L 12 09:40 ABG pCO2 89 mmHg (35-45) H* 09/26/18 09:40 ABG pO2 89 mmHg (83-108) 09/26/18 09:40 ABG HCO3 44 mmol/L (21-25) H* 09/26/18 09:40 ABG Total CO2 46 mmol/L (19-24) H 09/26/18 09:40 ABG O2 Saturation 96.1 % (94-97) 09/26/18 09:40 ABG Base Excess 17.3 mmol/L 09/26/18 09:40 Eulogio Test Yes 09/26/18 09:40 VBG pH 7.28 (7.31-7.41) L 09/18/18 16:45 VBG pCO2 84 mmHg (37-51) H* 09/18/18 16:45 VBG HCO3 38 mmol/L (24-28) H 09/18/18 16:45 FiO2 44 % 09/26/18 09:40 Sodium 141 mmol/L (137-145) 09/26/18 09:43 Potassium 4.2 mmol/L (3.5-5.1) 09/26/18 09:43 Chloride 91 mmol/L (98-107) L 09/26/18 09:43 Carbon Dioxide 44 mmol/L (22-30) H* 09/26/18 09:43 Anion Gap 6 mmol/L 09/26/18 09:43 BUN 48 mg/dL (7-17) H 09/26/18 09:43 Creatinine 1.20 mg/dL (0.52-1.04) H 09/26/18 09:43 Est GFR (CKD-EPI)AfAm 54 (>60 ml/min/1.73 sqM) 09/26/18 09:43 Est GFR (CKD-EPI)NonAf 47 (>60 ml/min/1.73 sqM) 09/26/18 09:43 Glucose 127 mg/dL (74-99) H 09/26/18 09:43 POC Glucose (mg/dL) 186 mg/dL (75-99) H 09/26/18 20:56 POC Glu Proration Clerk ID Carmen Hinds 09/26/18 20:[address] Glu mg/dL 126 09/18/18 16:45 Hemoglobin A1c 6.0 % (4.0-6.0) 09/18/18 16:45 Calcium 9.1 mg/dL (8.4-10.2) 09/26/18 09:43 Phosphorus 3.8 mg/dL (2.5-4.5) 09/26/18 09:43 Magnesium 2.3 mg/dL (1.6-2.3) 09/26/18 09:43 Total Bilirubin 0.3 mg/dL (0.2-1.3) 09/18/18 16:45 AST 23 U/L (14-36) 09/18/18 16:45 ALT 31 U/L (9-52) 09/18/18 16:45 Alkaline Phosphatase 96 U/L (38-126) 09/18/18 16:45 Total Creatine Kinase <20 U/L (30-135) L 09/18/18 16:45 CK-MB (CK-2) 1.2 ng/mL (0.0-2.4) 09/18/18 16:45 CK-MB (CK-2) Rel Index 09/18/18 16:45 Troponin I 0.022 ng/mL (0.000-0.034) 09/18/18 16:45 NT-Pro-B Natriuret Pep 3890 pg/mL 09/18/18 16:45 Total Protein 6.1 g/dL (6.3-8.2) L 09/18/18 16:45 Albumin 3.3 g/dL (3.5-5.0) L 09/18/18 16:45 Microbiology 09/19/18 15:26 Blood Blood Culture - Final No Growth after 144 hours 09/19/18 12:45 Leg - Right Gram Stain - Final 09/19/18 12:45 Leg - Right Wound Culture - Final Methicillin resist S. aureus Pseudomonas aeruginosa 09/19/18 17:00 Urine,Voided Urine Culture - Final Enterococcus faecium VRE Pseudomonas aeruginosa Assessment and Plan (1) Acute respiratory failure with hypoxia and hypercarbia Current Visit: Yes Status: Acute Code(s): J96.01 - ACUTE RESPIRATORY FAILURE WITH HYPOXIA; J96.02 - ACUTE RESPIRATORY FAILURE WITH HYPERCAPNIA SNOMED Code(s): 510294790 (2) Acute on chronic diastolic CHF (congestive heart failure) Current Visit: Yes Status: Acute Code(s): I50.33 - ACUTE ON CHRONIC DIASTOLIC (CONGESTIVE) HEART FAILURE SNOMED Code(s): 424325393 (3) Cellulitis of right leg Narrative/Plan: As noted superobese woman who has had worsening volume status and is without significant bulla to the right leg. She is having ongoing difficulties with her oxygen saturations despite her BiPAP. Local care with a Silvadene wrap will be applied to the right lower extremity. Elevate as much as possible. Cultures are process. Due to her complex history Zosyn has been started which was be primarily being used for her pulmonary disease. We will also provide coverage for multiple pathogens that could be affecting the leg. As noted the wound cultures no evidence of MRSA and urine culture has evidence of VRE in counseling daptomycin has been initiated. The patient is cared for in the home setting with her daughter. If she improves there will need to be plans for outpatient intravenous antibiotic therapy to complete the treatment for her infections. Fortunately blood cultures are negative so far. When she is more stable IV access can be planned to utilize for her outpatient therapy when she stable for home. Is being treated for the congestive heart failure which will hopefully improve her pulmonary status and at least somewhat improve her severe acidosis. 09/23/2018 patient is more comfortable. Continues to have significant respiratory difficulties with her pickwickian syndrome and hypercapnic respiratory failure. The lower extremities are much improved with diuresis and local wound care. Continue with the silver alginate to the right lower extremity and the wrap which is allowed a marked improvement of the ulceration. With the edema control there is also been a significant reduction of the copious amount of drainage from the leg. Currently be treated with daptomycin and Zosyn will monitor cultures she will need further IV access placed for intravenous antibiotic therapy to her discharge which the daughter hopes will be to home on the consider transition of Zosyn to a different agent. 09/26/2018 patient is comfortable but continues to have moments where she refuses to wear her BiPAP. Daughter relates that she is much more comfortable with her home device. Her asking if positive critical care can evaluate the home unit to see if it can support her effectively while she still in hospital since she does not like the hospital BiPAP mask and has been refusing to wear it at times. He has not there's been polymicrobial infection with MRSA, VRE and pseudomonas for which current Zosyn and daptomycin are being utilized with significant improvement. At this time would continue further 7 days based on her clinical improvement. Current Visit: Yes Status: Acute Code(s): L03.115 - CELLULITIS OF RIGHT LOWER LIMB SNOMED Code(s): 310150561
[2018-09-27 05:49] LABS: Anisocytosis Moderate; Basophils % (A) 0 %; Eosinophils # (A) 0.1 k/uL (0-0.7); Eosinophils % (A) 1 %; HCT 39.6 % (34.0-46.0); HGB 11.4 gm/dL (11.4-16.0); Hypochromasia Marked; Lymphocytes # (A) 1.5 k/uL (1.0-4.8); Lymphocytes % (A) 19 %; MCH 26.2 pg (25.0-35.0); MCHC 28.8 g/dL (31.0-37.0); Macrocytosis Slight; Mean Platelet Volume 8.2; Monocytes # (A) 0.5 k/uL (0-1.0); Monocytes % (A) 7 %; Neutrophils # (A) 5.7 k/uL (1.3-7.7); Neutrophils % (A) 71 %; Platelet Count 200 k/uL (150-450); Poikilocytosis Moderate; RBC 4.35 m/uL (3.80-5.40); RDW 21.7 % (11.5-15.5)
[2018-09-27 06:01] LABS: Calcium 9.4 mg/dL (8.4-10.2); Magnesium 2.3 mg/dL (1.6-2.3); Phosphorus 3.6 mg/dL (2.5-4.5); Potassium 3.6 mmol/L (3.5-5.1)
[2018-09-27 06:57] LABS: Glucose,Whole Blood 94 mg/dL (75-99)
[2018-09-27] MEDS: PIPERACILLIN-TAZOBACTAM 3.375 GM in SODIUM CHLORIDE 0.9% 100 ML IVPB SCH ×3 (07:11→23:14)
[2018-09-27] MEDS: INSULIN ASPART 100 UNIT/ML 1 ML 10 ML VIAL SQ SCH ×4 (07:12→20:37)
[2018-09-27] MEDS: PANTOPRAZOLE 40 MG TABLET PO SCH (07:15)
[2018-09-27] MEDS: APIXABAN 5 MG TAB PO SCH ×3 (07:42→20:25)
[2018-09-27] MEDS: SYMBICORT 160-4.5 MCG INHALER INHALATION SCH ×2 (07:56→19:34)
[2018-09-27] MEDS: IPRATROPIUM-ALBUTEROL 3 ML NEB INHALATION SCH ×4 (07:56→19:34)
--- NOTE | 2018-09-27 08:47 | XR ---
EXAMINATION TYPE: XR chest 1V portable DATE OF EXAM: 09/27/2018 COMPARISON: 09/26/2018 INDICATION: Short of breath TECHNIQUE: Single frontal view of the chest is obtained. FINDINGS: The heart size is enlarged. The pulmonary vasculature is normal. Left lower lobe infiltrate is present. This may be slightly increased over the interval. Mild subsegm ental atelectasis is likely present at the right base. IMPRESSION: 1. Increasing left basilar infiltrate. Correlate for atelectasis and pneumonia. Continued follow-up i s recommended. 2. Suggestion of mild subsegmental atelectasis right base
[2018-09-27] MEDS ORDERED: LIDOCAINE 1% INJ 10MG/ML (20 ML MDV) SQ ONE (09:36)
[2018-09-27] MEDS: FUROSEMIDE 10 MG/ML 4 ML VIAL IV SCH ×2 (09:56→20:24)
[2018-09-27] MEDS: DILTIAZEM ORAL 30 MG TAB PO SCH ×3 (09:56→21:31)
[2018-09-27] MEDS: METOPROLOL TARTRATE 50 MG TAB PO SCH ×2 (09:57→20:25)
--- NOTE | 2018-09-27 10:54 | XR ---
EXAMINATION TYPE: XR chest 1V portable DATE OF EXAM: 09/27/2018 COMPARISON: Prior chest x-ray same dated earlier time HISTORY: Status post PICC line placement TECHNIQUE: Single frontal view of the chest is obtained. FINDINGS: There is been interval placement of a right-sided PICC line, distal tip is overlying super ior vena cava. No evident pneumothorax. Technique is apical lordotic and rotated. Heart is likely enl arged. Prominent central vascularity and interstitium may be due to congestive heart failure. IMPRESSION: No evident complication status post PICC line placement.
[2018-09-27] MEDS: DAPTOmycin 500 MG in SODIUM CHLORIDE 0.9% 50 ML IVPB SCH (11:30)
[2018-09-27 11:59] LABS: Glucose,Whole Blood 92 mg/dL (75-99)
--- NOTE | 2018-09-27 12:21 | IR ---
EXAMINATION TYPE: IR cvc insert >=5 years DATE OF EXAM: 09/27/2018 COMPARISON: NONE HISTORY: Infection Needs long-term intravenous access for antibiotics FINDINGS: Maximal barrier technique was utilized. The skin overlying the right brachial vein was loc alized with ultrasound and noted to be compressible and patent by ultrasound. An ultrasound image wa s obtained and submitted on patient's chart. Sterile technique utilized with the ultrasound machine. The skin overlying was prepped and draped and Lidocaine used for local anesthesia. A skin ervin was m dariana with a scalpel. Access was gained to the vein under direct ultrasound guidance with a 21-gauge n eedle and a 0.018 inch wire was advanced. Access site was dilated with a peel-away sheath and the ca theter tailored to length. Catheter advanced centrally and a post procedure chest x-ray verified charlee cement with the tip in the superior vena cava. Catheter was fixed to the skin and a sterile dressing placed. Hemostasis achieved and the catheter was aspirated and flushed with sterile saline. The pa tient remained in stable condition. IMPRESSION: STATUS POST ULTRASOUND GUIDED PICC LINE PLACEMENT, READY FOR USE. THIS PROCEDURE WAS PER FORMED BY THE UNDERSIGNED.
--- NOTE | 2018-09-27 13:32 | P.PN ---
Subjective Progress Note Date: 09/27/18 Principal diagnosis: Acute on chronic hypoxic and hypercapnic respiratory failure, multifactorial. O This is a 68-year-old female patient, morbidly obese presented to the hospital because of diminished level of consciousness and cellulitis of the lower extremity. The patient developed a large vesicle over the pretibial area and the right lower extremity and ultimately the vesicle pops and the patient had a large erythematous patch in the right lower extremity at the site of the previous vesicle with skin irregularity and ulceration. The patient has chronic lower extremity edema bilaterally. No reported fever or chills. Nevertheless the patient was becoming more lethargic. She came into the emergency department the patient was found to be hypoxic. Her initial pulse ox was in the mid/low 80s. The patient was placed immediately on BiPAP at a car to the patient is on BiPAP at a pressure of over 5 cm of water. He is also on a FiO2 of 50%. The chest x-ray is limited because of her body habitus. Nevertheless, the patient has no cough or sputum production. No reported chest pain. No sputum production. She was also started on accommodation of Rocephin and Zithromax suspecting an underlying pneumonia and she was admitted to the hospital. I saw this patient and I also talked to her daughter at the bedside. The concern is for now right lower extremity cellulitis. Started this patient IV Zosyn pending infectious disease consultation. I reviewed the blood gases from this morning and the results are as mentioned above. Despite ongoing diminished level of consciousness, the patient is arousable and she can follow commands and answer questions appropriately. My last encounter with this patient was in the office and at that time I checked her BiPAP machine which is set at a pressure of 14/7 cm of water. She was extremely compliant and her AHI while on treatment was less than 5 consistent with successful BiPAP therapy. The patient has a stable renal function with a creatinine of 1.25 and a time of admission. Her white cell count is 11.1. She has also station to pressure ulcer in her left buttocks. No aspiration. No chest pain. She is moving all 4 extremities without any limitation. On 09/20/2018 patient was noted to be somnolent, hard to arouse, repeat blood gas was obtained, and showed pO2 of 79, pCO2 of 97, and pH of 7.23, consistent with an acute on chronic hypercapnic respiratory failure. On clinical exam patient was quite somnolent, stuporous, decision was made to move the patient is a intensive care unit, she continues on IV diuretics, and 40 mg every 8 hours , her weight actually increased by 1.3 kg in the last 24 hours, patient did not have an indwelling catheter, and has been incontinent of large amount of urine, says hard to estimate. Lung sounds are extremely diminished, her tidal volume is 325 ML on the BiPAP support. BiPAP settings of 16/5, and FiO2 of 40%. X- ray was obtained, and showed cardiomegaly with bilateral consolidation, interstitial edema. Patient was seen in consultation by infectious disease service, she is getting local wound care to the lower extremity cellulitis, she is on antibiotic coverage in the form of Zosyn. Wound cultures are positive for presumptive staph aureus, and gram-negative bacilli, cultures are pending. Repeat blood gases in the intensive care unit showed him pO2 of 88, pCO2 of 85, and pH of 7.29, improving blood gases, patient is started to a more alert, and responsive. Sucks is 96% on FiO2 of 40%, she is afebrile, patient is atrial fibrillation, patient has history of chronic A. fib, she is anticoagulated with the Apixaban. On 09/21/2018 patient seen in follow-up in the intensive care unit, she wore the BiPAP most of the day yesterday, and during the night, she was able to tolerate nasal cannula trials for meals yesterday. Today's exam: Patient is awake and alert, in no acute distress. Afebrile, hemodynamically stable, lung sounds are diminished, no rhonchi or wheezes, today's chest x-ray has been reviewed by Dr. Baazn, and showed improved volume status. She is diuresing , remains on Lasix 40 mg every 8 hours, and she is in -1956 mL over the last 24 hours. Denies any chest pain, she is receiving local wound care to the left leg cellulitis, and she is covered with Zosyn, ID service is following. On 09/22/2018 patient seen in follow-up in intensive care unit, she is currently awake and alert, on 6 L per high flow nasal cannula, she is wearing a BiPAP most of the time in between meals and at bedtime. Patient is able to come off for mealtimes however she becomes lethargic afterwards and has to go back on BiPAP. Afebrile, no chills, hemodynamically stable, microbiology results have been reviewed, and showed MRSA and Pseudomonas in the wound culture , and VRE and Pseudomonas in the urine culture, blood cultures were negative. Patient is currently just on Zosyn, we will add daptomycin, she continues on IV Lasix, at 40 mg every 12 hours, and she is in negative fluid balance. Today's chest x-ray was reviewed by Dr. Bazan and showed congestive heart failure with mild pulmonary vessel congestion, moderate left pleural effusion and trace right pleural effusion and bibasilar airspace disease. On 09/23/2018 patient seen in follow-up in the intensive care unit, she is awake and alert, she is wearing BiPAP most of the time, she has been able to come off for meals. She is on IV diuretics, she is diuresing , she is in -971 mL fluid balance. In no acute distress. Current antibiotic coverage includes Zosyn and daptomycin, urine cultures showed MRSA and pseudomonas aeruginosa, and urine culture was positive for enterococcus faecium, mycin resistant and pseudomonas aeruginosa. Infectious disease service is following. His chest x- ray was reviewed by Dr. Bazan, and showed some residual left pleural effusion , findings of congestive heart failure improving. Labs have been reviewed, WBC is 6.9, hemoglobin is 11.7, sodium is 140 potassium is 5.8, chloride is 93, CO2 is 40, B1 is 87 and creatinine is 1.1. We'll give the patient 2 A of sodium bicarb for hyperkalemia related to respiratory acidosis On 09/24/2018 I see this patient in ICU. Overnight she was kept on a BiPAP and this morning she was switched to a 6 L about 2 by nasal cannula. A follow-up blood. This will follow. She is doing well. She has no specific complaints. He has been on IV antibiotics regarding the right lower extremity cellulitis. A follow-up blood gases is to follow today. Meanwhile, her blood work shows a component of metabolic alkalosis which is compensated at and a serum bicarb is up to 42. White cell count is not elevated. She is hemodynamically stable. She is being diuresed with IV Lasix. She is a negative fluid balance. She has produced approximately 2.6 L 40 yesterday and 3.1 L for today and she remains in a negative fluid balance for all these days. Tolerating his diet pH is moving all 4 extremities without any limitation. Serum potassium level is down to 4.9. On 09/25/2008 and I'm seeing this patient in follow-up in the intensive care unit. I took her off the BiPAP this morning and on 6 L of oxygen by nasal cannula and when the patient's blood gas showed a pH of 7.37 with a pCO2 of 83 and pO2 of 67. She is still using the BiPAP on and off during the day and continuously at nighttime. She is still being treated with daptomycin for a lower extremity cellulitis. No new complaints. Tolerating diet. Mental status is awake and alert. She follows commands and answering questions appropriately. She is a negative fluid balance as the patient is being dialyzed IV Lasix and the patient is a negative fluid balance of 1.7 L on 2017. No nausea. No vomiting. No abdominal pain. No fever. No chills. She is essentially sedentary. She is morbidly obese with a BMI of 71.8 and she is unable to ambulate at this point in time. Patient was reevaluated today on 09/26/2018, remains in the ICU, presently on 5 L nasal cannula, and she was on BiPAP last night. ABG this morning on 6 L nasal cannula showed a pO2 of 89, pCO2 of 89 pH of 7.30. Her other labs were reviewed, patient is basically about the same, she is laying in bed, lethargic, however she is definitely arousable. Patient remains in the intensive care unit. Definitely has no complaints. Follows commands, answers questions appropriately, she is morbidly obese, BMI of 71.8. Bedridden and she does not ambulate. Chest x-ray today continues to show enlarged heart, patchy basilar density persists, prominent interstitial markings. Some improvement in aeration overall. Patient was reevaluated today on 09/27/2018, remains in the ICU, on nasal cannula, intermittently on BiPAP. Patient is basically about the same, she has episodes of lethargy most likely related to hypercapnia. BiPAP is at bedside, and could be used as needed. Patient is arousable today, and she does not seem to be in any form of respiratory distress. Relatively asymptomatic. Her labs were reviewed relatively normal CBC and the relatively normal basic metabolic profile except for bicarb of 40 BUN is 47 creatinine is 1.27, slightly worse compared to the last few days. Patient had a PICC line placed, and no complications noted. Objective - Vital Signs Vital signs: Vital Signs Temp 98.1 F 09/27/18 08:00 Pulse 78 09/27/18 11:09 Resp 47 H 09/27/18 11:00 BP 105/73 09/27/18 11:00 Pulse Ox 90 L 09/27/18 11:00 Intake & Output 09/26/18 09/27/18 09/27/18 18:59 06:59 18:59 Intake Total 870 380 525 Output Total 1310 966 600 Balance -440 -586 -75 Weight 189.6 kg Intake: IV 330 280 175 0.9 Sodium Chloride 180 180 75 DAPTOmycin 500 mg In 50 Sodium Chloride 0.9% 50 ml @ 100 mls/hr IVPB Q24H [facility] Rx#:[id number] Piperacillin-Tazobactam 3 100 100 100 .375 gm In Sodium Chloride 0.9% 100 ml @ 25 mls/hr IVPB Q8HR [facility] Rx# :[id number] Oral 540 100 350 Output: Urine 1310 965 600 Stool 1 Other: Voiding Method Indwelling Catheter Indwelling Catheter Indwelling Catheter - Exam GENERAL: The patient is morbidly obese arousable and follows instructions. Head: Atraumatic, normocephalic. HEENT: Pupils are round and equally reacting to light. EOMI. No scleral icterus. No conjunctival pallor. Normocephalic, atraumatic. No pharyngeal erythema. No thyromegaly. CARDIOVASCULAR: S1 and S2 present. No murmurs, rubs, or gallops. PULMONARY: Extremely diminished breath sound bilaterally, no rhonchi and no wheezes. ABDOMEN: Soft, nontender, nondistended, normoactive bowel sounds. No palpable organomegaly. MUSCULOSKELETAL: No joint swelling or deformity. EXTREMITIES: 2+ bilateral pedal edema, dressings noted on both lower extremities , being followed by Dr. Shepherd.. NEUROLOGICAL: Lethargic, arousable, follows instructions. Moves all extremities. No gross focal neurologic deficit. SKIN: right leg cellulitis, both legs are wrapped with sterile dressings. - Labs CBC & Chem 7: 09/27/18 04:44 09/27/18 04:44 Labs: Abnormal Lab Results - Last 24 Hours (Table) 09/26/18 09/26/18 09/27/18 Range/Units 16:59 20:56 04:44 MCHC 28.8 L (31.0-37.0) g/dL RDW 21.7 H (11.5-15.5) % Chloride (98-107) mmol/L Carbon Dioxide (22-30) mmol/L BUN (7-17) mg/dL Creatinine (0.52-1.04) mg/dL POC Glucose (mg/dL) 206 H 186 H (75-99) mg/dL 09/27/18 Range/Units 04:44 MCHC (31.0-37.0) g/dL RDW (11.5-15.5) % Chloride 90 L (98-107) mmol/L Carbon Dioxide 40 H (22-30) mmol/L BUN 47 H (7-17) mg/dL Creatinine 1.27 H (0.52-1.04) mg/dL POC Glucose (mg/dL) (75-99) mg/dL Assessment and Plan Assessment: Impression: 1 acute on chronic hypoxic and hypercapnic respiratory failure secondary to obesity/hypoventilation syndrome, obstructive sleep apnea syndrome, restrictive lung disease, 2 acute cellulitis, remains on daptomycin and IV Zosyn. Patient had VRE and Pseudomonas in the urine and MRSA with pseudomonas and the wounds. This is being addressed by infectious disease on the case. 3 obesity/hypoventilation syndrome 4 severe restrictive lung disease secondary to morbid obesity 5 multiple comorbidities including hypertension, chronic atrial fibrillation, stage II chronic kidney disease, recurrent cellulitis of lower extremities bilaterally and poor performance and functional status secondary to above comorbidities. Recommendation: Continue present supportive care measures, patient is demonstrating a relative stability in spite of her multiple medical problems, hence I believe she could be transferred out of the ICU to a regular medical floor, IPAP will remain at bedside, and could be used as needed. Continue the rest of the measures as noted above. Overall prognosis remains poor and guarded , we will have to discuss her CODE STATUS with her daughter. Long-term prognosis is very poor. We'll continue to follow Time with Patient: Less than 30
[2018-09-27 17:21] LABS: Glucose,Whole Blood 123 mg/dL (75-99)
--- NOTE | 2018-09-27 19:15 | P.PN ---
Subjective [facility] 68 [facility], a fib on eliquis, diastolic CHF, GERD, GI Bleed, hypertension who presents with dyepsnea, not relieved by BiPAP at home, she was recently visited ED for lower extremity rash. pt was admitted to ICU for acute on chronic hypoxic resp failure with some elements of fluid overload radha on cxr. pt has positive urine culture for enterococcus and gram negative bacilli. and wound culture that is positive for MRSA and pseudomonas. he mild leukocytosis on admission was resolved. creatinine 1.14. sugar is controlled. 09/22/2018 pt was seen and examined in the ICU, pt was still on BiPAP machine. pt still looks lethargic and tired , pt wound c/s: MRSA and pseudomonas, while UC: VRE and enterococcus and pseudomonas, pt was started on Daptomycin. pt is afebrile, her leukocytosis has resolved and WBC: 6.1K , bp is at acceptable range. rest of vital looks stable, pt is on BiPAP, her blood is still acidemic with PG 7.1 and PCO2 of 85. pt is been followed in the ICU by critical care team and their input is appreciated 09/23/2018 Patient remains in the ICU on CPAP/BiPAP machine, she has pain in the left lower extremity from her cellulitis which is the same since admission. Her blood pressure is stable and she is saturating 94% on 6 L nasal cannula. No leukocytosis and her CBC were unremarkable. Sodium 140. Potassium elevated at 5.8. Pulmonary team are following the patient and they gave the patient sodium bicarb And creatinine 1.1. Monitor potassium level 09/24/2018 Patient's seen and examined in the ICU today. She is feeling better and breathing is looks calm her. She is without the CPAP/BiPAP today. She was seen on nasal cannula saturation well and eating her breakfast daughter at bedside to help her. She still complaining from pain in her lower exudative slightly but she said that is been improving. She denies chest pain or dyspnea. No abdominal pain. No fever, little bit tachycardic. Blood pressure 120/80. Saturation 92% on 6 L. ABG done today showing pH of 7.3 with high pCO2 at 93. PO2 is 64. BMP showing sodium 138 with potassium 4.9 and high carbon dioxide at 42. Sugar looks controlled She is currently on daptomycin on positive urine and wound culture for pseudomonas, as well as MRSA in the leg and enterococcus in the urine 09/25/2018 Patient seen and examined in the ICU today. Patient has taken all the BiPAP oriented and she is more awake and breathing more easily compared to previous days. Her pain and lower extremity is better. Patient remains on a breathing treatment and daptomycin for her lower extremity cellulitis. However patient looks like still need to be monitored in the intensive care unit. Patient remains on daptomycin for MRSA and pseudomonas infection as well as enterococcus in the urine. 09/26/2018 Patient remains in the ICU, she is off BiPAP. Her breathing is slowly improving. Saturation 92-95% on 6 L nasal cannula. Pain in the lower extremity. CBC was unremarkable however during the ABG she is has pH of 7.3 with high pCO2 at 89%. With high bicarb and BMP at 44 09/27/2018 pt continuue in the ICU , her breathing is improving , she is currently select floor overflow, picc line was placed today for prolonged antibioitic . cbc and BMP remain unremarkable. Objective - Vital Signs Vital signs: Vital Signs Temp 98.1 F 09/27/18 15:00 Pulse 80 09/27/18 15:37 Resp 24 09/27/18 15:00 BP 105/73 09/27/18 11:00 Pulse Ox 90 L 09/27/18 11:00 Intake & Output 09/27/18 09/27/18 09/28/18 06:59 18:59 06:59 Intake Total 380 640 Output Total 966 1050 Balance -586 -410 Weight 189.6 kg 189.6 kg Intake: IV 280 190 0.9 Sodium Chloride 180 90 Piperacillin-Tazobactam 3 100 100 .375 gm In Sodium Chloride 0.9% 100 ml @ 25 mls/hr IVPB Q8HR [facility] Rx# :[id number] Oral 100 450 Output: Urine 965 1050 Stool 1 Other: Voiding Method Indwelling Catheter Indwelling Catheter - Exam GENERAL: The patient is alert and oriented x3, not in any acute distress. morbidly obese HEENT: Pupils are round and equally reacting to light. EOMI. No scleral icterus. No conjunctival pallor. Normocephalic, atraumatic. No pharyngeal erythema. No thyromegaly. CARDIOVASCULAR: S1 and S2 present. No murmurs, rubs, or gallops. PULMONARY: Chest is clear to auscultation, no wheezing or crackles. decreased breath sounds. ABDOMEN: Soft, nontender, nondistended, normoactive bowel sounds. No palpable organomegaly. MUSCULOSKELETAL: No joint swelling or deformity. EXTREMITIES: No cyanosis, clubbing, or pedal edema. NEUROLOGICAL: Gross neurological examination did not reveal any focal deficits. SKIN: right leg cellulitis - Labs CBC & Chem 7: 09/27/18 04:44 09/27/18 04:44 Labs: Abnormal Lab Results - Last 24 Hours (Table) 09/26/18 09/27/18 09/27/18 Range/Units 20:56 04:44 04:44 MCHC 28.8 L (31.0-37.0) g/dL RDW 21.7 H (11.5-15.5) % Chloride 90 L (98-107) mmol/L Carbon Dioxide 40 H (22-30) mmol/L BUN 47 H (7-17) mg/dL Creatinine 1.27 H (0.52-1.04) mg/dL POC Glucose (mg/dL) 186 H (75-99) mg/dL 09/27/18 Range/Units 17:08 MCHC (31.0-37.0) g/dL RDW (11.5-15.5) % Chloride (98-107) mmol/L Carbon Dioxide (22-30) mmol/L BUN (7-17) mg/dL Creatinine (0.52-1.04) mg/dL POC Glucose (mg/dL) 123 H (75-99) mg/dL Assessment and Plan Assessment: acute on chronic resp failure hypoventilation obesity syndrome acute on chronic diastolic CHF cellulitis of the lower extremity with mrsa and psudomonas hypertension a fib on eliquis UTI with psudomonas and VRE Plan: this is a pleasant 68 yo F who presents with cellutitis and resp failure, pulmonary critical care team are following the pt. pt is on diuretics, uses BiPAP machine. continue with the same treatment , continue with symptomatic treatment , resume home medication , monitor lytes and vitals including glucose , cardiology consult is appreciated. . c/w same antibioitc . GI and DVT prophylaxis , further recommendation based upon pt clinical course and progress DVT prophylaxis eliquis GI prophylaxis Protonix Prognosis is guarded
[2018-09-27] MEDS: HYDROcodone/APAP 5-325MG 1 EACH TAB PO PRN (20:25)
[2018-09-27 20:43] LABS: Glucose,Whole Blood 223 mg/dL (75-99)
--- NOTE | 2018-09-27 21:51 | P.PN ---
Subjective Progress Note Date: 09/27/18 This is a 68-year-old female well-known to ID service as she has been seen in the past for chronic wounds and she has frequent admissions for heart failure with history of morbid obesity and lower extremity edema. Patient's daughters states that her breathing status has been stable. She is normally on O2 at 4 L nasal cannula since her last hospitalization. She uses a BiPAP at night. Patient developed a bubble type wound to the right pretibial area which her daughter states was a size of a thumbnail last week. This area continued to swell and reddened and she came into [facility] emergency center on was diagnosed with cellulitis and sent home on Keflex 500 mg every 6 hours for 5 days. This large blister has been popping on its own and then refilling with fluid almost daily and has increased in size to encompass almost the entire pretibial area. She denies that her mother has had any fever or chills. No problem with swallowing, bowel movements a been normal no blood in her stools or no diarrhea. She has urinating but decreased output over the past couple days. Patient had a drop in her pulse ox last night 85 when she was put on BiPAP it dropped down to 70%. EMS was called and patient was brought into [facility] emergency center for evaluation of acute hypoxic respiratory failure and acute diastolic heart failure. Chest x- ray showed CHF unchanged with moderate cardiomegaly. Her respiratory rate was 40, she was afebrile, her initial pulse ox was 69%. White count 11.1, creatinine 1.25. She was started on IV Lasix azithromycin and Solu-Medrol and admitted to the cardiac stepdown unit. There is a consult in place with pulmonary medicine. Patient also presented with stage II pressure ulcer left buttock. Patient is currently on BiPAP and states that she is feeling better since she came in. She is able to nod to answer questions. She is currently wheelchair bound and lives with her daughter. 09/22/2018 patient remains in intensive care unit on BiPAP with ongoing significant acidosis and hypercapnic Respiratory failure. The drainage from the right leg is markedly diminished and she is briefly arousable at times. She is in a negative fluid balance and seems to be feeling slightly better. But remains chronically and somewhat profoundly ill. 09/23/2018 patient is currently off of BiPAP therapy, this is the first time I have not evaluated her when she is not on BiPAP. She is able to relate a few sentences but does drift asleep quite readily. She does not have significant complaint 09/26/2018 patient is having bouts off of her BiPAP, refusing to have it replaced although she is sleeping at times. She is comfortable and there are no other new acute complaints related. Lower extremity edema is improved with current local care. 09/27/2018 patient does open eyes at times. Wants to know when she will able to go home. No other new complaints. Objective - Vital Signs Vital signs: Vital Signs Temp 98.1 F 09/27/18 15:00 Pulse 76 09/27/18 19:44 Resp 14 09/27/18 19:44 BP 105/73 09/27/18 11:00 Pulse Ox 90 L 09/27/18 11:00 Intake & Output 09/27/18 09/27/18 09/28/18 06:59 18:59 06:59 Intake Total 380 640 Output Total 966 1050 Balance -586 -410 Weight 189.6 kg 189.6 kg Intake: IV 280 190 0.9 Sodium Chloride 180 90 Piperacillin-Tazobactam 3 100 100 .375 gm In Sodium Chloride 0.9% 100 ml @ 25 mls/hr IVPB Q8HR [facility] Rx# :[id number] Oral 100 450 Output: Urine 965 1050 Stool 1 Other: Voiding Method Indwelling Catheter Indwelling Catheter - Exam Gen: This is a 68-year-old morbidly obese female. She is sitting upright in bed BiPAP in place HEENT: Head is atraumatic, normocephalic. Pupils equal, round. Sclerae is anicteric. Conjunctiva slightly pale. NECK: Supple. No JVD. No lymphadenopathy. No thyromegaly. LUNGS: Diminished bilaterally few expiratory wheezes are heard no brenden bronchial sounds lungs sounds are distant HEART: Irregularly irregular rate and rhythm. No murmur. Distant heart sounds. ABDOMEN: Obese Soft. Bowel sounds are present. No masses. No tenderness. No redness under her abdominal fold. EXTREMITIES: 3+ bilateral pedal edema. Large dressing in place on the right lower extremity which was not removed for evaluation and referred to Dr. Shepherd.. NEUROLOGICAL: She is arousable and follows simple commands briefly and falls back to sleep - Labs CBC & Chem 7: 09/27/18 04:44 09/27/18 04:44 Labs: Abnormal Lab Results - Last 24 Hours (Table) 09/27/18 09/27/18 09/27/18 Range/Units 04:44 04:44 17:08 MCHC 28.8 L (31.0-37.0) g/dL RDW 21.7 H (11.5-15.5) % Chloride 90 L (98-107) mmol/L Carbon Dioxide 40 H (22-30) mmol/L BUN 47 H (7-17) mg/dL Creatinine 1.27 H (0.52-1.04) mg/dL POC Glucose (mg/dL) 123 H (75-99) mg/dL 09/27/18 Range/Units 20:32 MCHC (31.0-37.0) g/dL RDW (11.5-15.5) % Chloride (98-107) mmol/L Carbon Dioxide (22-30) mmol/L BUN (7-17) mg/dL Creatinine (0.52-1.04) mg/dL POC Glucose (mg/dL) 223 H (75-99) mg/dL Laboratory Results WBC 8.0 k/uL (3.8-10.6) 09/27/18 04:44 RBC 4.35 m/uL (3.80-5.40) 09/27/18 04:44 Hgb 11.4 gm/dL (11.4-16.0) 09/27/18 04:44 Hct 39.6 % (34.0-46.0) 09/27/18 04:44 MCV 91.0 fL (80.0-100.0) 09/27/18 04:44 MCH 26.2 pg (25.0-35.0) 09/27/18 04:44 MCHC 28.8 g/dL (31.0-37.0) L 09/27/18 04:44 RDW 21.7 % (11.5-15.5) H 09/27/18 04:44 Plt Count 200 k/uL (150-450) 09/27/18 04:44 Neutrophils % 71 % 09/27/18 04:44 Lymphocytes % 19 % 09/27/18 04:44 Monocytes % 7 % 09/27/18 04:44 Eosinophils % 1 % 09/27/18 04:44 Basophils % 0 % 09/27/18 04:44 Neutrophils # 5.7 k/uL (1.3-7.7) 09/27/18 04:44 Lymphocytes # 1.5 k/uL (1.0-4.8) 09/27/18 04:44 Monocytes # 0.5 k/uL (0-1.0) 09/27/18 04:44 Eosinophils # 0.1 k/uL (0-0.7) 09/27/18 04:44 Basophils # 0.0 k/uL (0-0.2) 09/27/18 04:44 Manual Slide Review Performed 09/26/18 09:43 Polychromasia Present 09/26/18 09:43 Hypochromasia Marked 09/27/18 04:44 Poikilocytosis Moderate 09/27/18 04:44 Anisocytosis Moderate 09/27/18 04:44 Microcytosis Slight 09/22/18 05:15 Macrocytosis Slight 09/27/18 04:44 PT 9.9 sec (9.0-12.0) 09/26/18 09:43 INR 0.9 (<1.2) 09/26/18 09:43 APTT 20.9 sec (22.0-30.0) L 09/18/18 16:45 Sample Site lbrac 09/26/18 09:40 ABG pH 7.30 (7.35-7.45) L 09/26/18 09:40 ABG pCO2 89 mmHg (35-45) H* 09/26/18 09:40 ABG pO2 89 mmHg (83-108) 09/26/18 09:40 ABG HCO3 44 mmol/L (21-25) H* 09/26/18 09:40 ABG Total CO2 46 mmol/L (19-24) H 09/26/18 09:40 ABG O2 Saturation 96.1 % (94-97) 09/26/18 09:40 ABG Base Excess 17.3 mmol/L 09/26/18 09:40 Eulogio Test Yes 09/26/18 09:40 VBG pH 7.28 (7.31-7.41) L 09/18/18 16:45 VBG pCO2 84 mmHg (37-51) H* 09/18/18 16:45 VBG HCO3 38 mmol/L (24-28) H 09/18/18 16:45 FiO2 44 % 09/26/18 09:40 Sodium 138 mmol/L (137-145) 09/27/18 04:44 Potassium 3.6 mmol/L (3.5-5.1) 09/27/18 04:44 Chloride 90 mmol/L (98-107) L 09/27/18 04:44 Carbon Dioxide 40 mmol/L (22-30) H 09/27/18 04:44 Anion Gap 8 mmol/L 09/27/18 04:44 BUN 47 mg/dL (7-17) H 09/27/18 04:44 Creatinine 1.27 mg/dL (0.52-1.04) H 09/27/18 04:44 Est GFR (CKD-EPI)AfAm 50 (>60 ml/min/1.73 sqM) 09/27/18 04:44 Est GFR (CKD-EPI)NonAf 44 (>60 ml/min/1.73 sqM) 09/27/18 04:44 Glucose 78 mg/dL (74-99) 09/27/18 04:44 POC Glucose (mg/dL) 223 mg/dL (75-99) H 09/27/18 20:32 POC Glu [employer] YUMIKO Aleida Salcedo 09/27/18 20:[address] Glu mg/dL 126 09/18/18 16:45 Hemoglobin A1c 6.0 % (4.0-6.0) 09/18/18 16:45 Calcium 9.4 mg/dL (8.4-10.2) 09/27/18 04:44 Phosphorus 3.6 mg/dL (2.5-4.5) 09/27/18 04:44 Magnesium 2.3 mg/dL (1.6-2.3) 09/27/18 04:44 Total Bilirubin 0.3 mg/dL (0.2-1.3) 09/18/18 16:45 AST 23 U/L (14-36) 09/18/18 16:45 ALT 31 U/L (9-52) 09/18/18 16:45 Alkaline Phosphatase 96 U/L (38-126) 09/18/18 16:45 Total Creatine Kinase <20 U/L (30-135) L 09/18/18 16:45 CK-MB (CK-2) 1.2 ng/mL (0.0-2.4) 09/18/18 16:45 CK-MB (CK-2) Rel Index 09/18/18 16:45 Troponin I 0.022 ng/mL (0.000-0.034) 09/18/18 16:45 NT-Pro-B Natriuret Pep 3890 pg/mL 09/18/18 16:45 Total Protein 6.1 g/dL (6.3-8.2) L 09/18/18 16:45 Albumin 3.3 g/dL (3.5-5.0) L 09/18/18 16:45 Microbiology 09/19/18 15:26 Blood Blood Culture - Final No Growth after 144 hours 09/19/18 12:45 Leg - Right Gram Stain - Final 09/19/18 12:45 Leg - Right Wound Culture - Final Methicillin resist S. aureus Pseudomonas aeruginosa 09/19/18 17:00 Urine,Voided Urine Culture - Final Enterococcus faecium VRE Pseudomonas aeruginosa Assessment and Plan (1) Acute respiratory failure with hypoxia and hypercarbia Current Visit: Yes Status: Acute Code(s): J96.01 - ACUTE RESPIRATORY FAILURE WITH HYPOXIA; J96.02 - ACUTE RESPIRATORY FAILURE WITH HYPERCAPNIA SNOMED Code(s): 703958197 (2) Acute on chronic diastolic CHF (congestive heart failure) Current Visit: Yes Status: Acute Code(s): I50.33 - ACUTE ON CHRONIC DIASTOLIC (CONGESTIVE) HEART FAILURE SNOMED Code(s): 205828642 (3) Cellulitis of right leg Narrative/Plan: As noted superobese woman who has had worsening volume status and is without significant bulla to the right leg. She is having ongoing difficulties with her oxygen saturations despite her BiPAP. Local care with a Silvadene wrap will be applied to the right lower extremity. Elevate as much as possible. Cultures are process. Due to her complex history Zosyn has been started which was be primarily being used for her pulmonary disease. We will also provide coverage for multiple pathogens that could be affecting the leg. As noted the wound cultures no evidence of MRSA and urine culture has evidence of VRE in counseling daptomycin has been initiated. The patient is cared for in the home setting with her daughter. If she improves there will need to be plans for outpatient intravenous antibiotic therapy to complete the treatment for her infections. Fortunately blood cultures are negative so far. When she is more stable IV access can be planned to utilize for her outpatient therapy when she stable for home. Is being treated for the congestive heart failure which will hopefully improve her pulmonary status and at least somewhat improve her severe acidosis. 09/23/2018 patient is more comfortable. Continues to have significant respiratory difficulties with her pickwickian syndrome and hypercapnic respiratory failure. The lower extremities are much improved with diuresis and local wound care. Continue with the silver alginate to the right lower extremity and the wrap which is allowed a marked improvement of the ulceration. With the edema control there is also been a significant reduction of the copious amount of drainage from the leg. Currently be treated with daptomycin and Zosyn will monitor cultures she will need further IV access placed for intravenous antibiotic therapy to her discharge which the daughter hopes will be to home on the consider transition of Zosyn to a different agent. 09/26/2018 patient is comfortable but continues to have moments where she refuses to wear her BiPAP. Daughter relates that she is much more comfortable with her home device. Her asking if positive critical care can evaluate the home unit to see if it can support her effectively while she still in hospital since she does not like the hospital BiPAP mask and has been refusing to wear it at times. He has not there's been polymicrobial infection with MRSA, VRE and pseudomonas for which current Zosyn and daptomycin are being utilized with significant improvement. At this time would continue further 7 days based on her clinical improvement. 09/27/2018 patient has BiPAP on this afternoon. She seems comfortable. Does request information about when she will go home. Her sister is present is very concerned about her poor mental status. Plan is to complete a 7 day course of therapy with Zosyn and daptomycin with a microbial infection of the urine as well as of her skin with Pseudomonas, MRSA, VRE. Current Visit: Yes Status: Acute Code(s): L03.115 - CELLULITIS OF RIGHT LOWER LIMB SNOMED Code(s): 149466548
--- NOTE | 2018-09-27 23:31 | CONS ---
CONSULTATION REASON FOR CONSULT: Renal failure. HISTORY OF PRESENT ILLNESS: Patient is a 68-year-old female who was initially admitted to the hospital on 09/18/2018 for lower extremity wounds. Patient also had respiratory failure and sepsis. She is now extubated. Patient grew VRE and pseudomonas on urine cultures. Serum creatinine is at 1.27 mg/dL today. Serum creatinine was at 0.87 on 09/25/2018. Patient is also fluid-overloaded and she is currently maintained on Lasix. Urine output was about 2.4 L for the last 24 hours. Patient has an indwelling Diop catheter. Overall she is feeling better. Patient needs to have a PICC line, and Nephrology is being asked if it is okay to proceed with a PICC line. PAST MEDICAL HISTORY: Significant for: 1. Obesity. 2. Atrial fibrillation. 3. COPD. 4. History of GI bleed. 5. Hypertension. 6. Chronic venostasis. 7. Previous history of respiratory failure and intubation. 8. Previous history of C difficile colitis. 9. History of urinary tract infections. PAST SURGICAL HISTORY: 1. Cholecystectomy. 2. 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 3. Bronchoscopy. SOCIAL HISTORY: Negative for smoking currently. Patient is a former smoker. No history of drug abuse or alcohol abuse. MEDICATIONS: Medications prior to admission included: 1. Eliquis. 2. Diltiazem. 3. Aldactone. 4. Lasix. 5. Lopressor. 6. Keflex. ALLERGIES: NONE. PHYSICAL EXAMINATION: Currently patient is awake, comfortable. She is not in any acute distress. She is awake and alert, oriented x3. Blood pressure was 105/73, heart rate 78 per minute. Patient is afebrile. EXAMINATION OF THE HEART: S1, S2. EXAMINATION OF LUNGS: Bilateral breath sounds are heard. Decreased breath sounds at the bases. ABDOMEN: Soft, morbidly obese. Examination of lower extremities shows 2+ edema bilaterally with chronic skin changes. Legs are wrapped. GROUP COUNSELOR exam is grossly intact. Patient moving all 4 extremities. LAB: Sodium 138, potassium 3.6, BUN 47, serum creatinine 1.27, hemoglobin 11.4 g/dL. ASSESSMENT: 1. Acute kidney injury, mostly acute tubular necrosis, currently nonoliguric. Renal function stable for the last couple of days. Patient is maintained on IV push Lasix, which I will continue since she has significant fluid overload. Okay to proceed with PICC line in her dominant arm. 2. Urinary tract infection with urine culture growing vancomycin-resistant Enterococcus and pseudomonas. 3. Right leg wound with culture growing methicillin-resistant Staphylococcus aeruginosa and pseudomonas. 4. Status post vent-dependent respiratory failure, currently extubated. 5. Fluid overload. Continue with IV Lasix. PLAN: Continue with IV push Lasix. Okay to proceed with PICC line in the dominant arm. Monitor electrolytes. Repeat labs in a.m. Continue to avoid nephrotoxic agents. MMODL / IJN: [id number] /
[2018-09-28] MEDS: HYDROcodone/APAP 5-325MG 1 EACH TAB PO PRN ×3 (02:37→19:45)
[2018-09-28 05:19] LABS: Anisocytosis Moderate; Basophils % (A) 0 %; Eosinophils # (A) 0.1 k/uL (0-0.7); Eosinophils % (A) 1 %; HCT 36.7 % (34.0-46.0); HGB 10.8 gm/dL (11.4-16.0); Hypochromasia Marked; Lymphocytes # (A) 1.4 k/uL (1.0-4.8); Lymphocytes % (A) 19 %; MCH 26.3 pg (25.0-35.0); MCHC 29.3 g/dL (31.0-37.0); MCV 89.7 fL (80.0-100.0); Mean Platelet Volume 8.3; Monocytes # (A) 0.5 k/uL (0-1.0); Monocytes % (A) 8 %; Neutrophils # (A) 4.8 k/uL (1.3-7.7); Neutrophils % (A) 68 %; Platelet Count 193 k/uL (150-450); Poikilocytosis Moderate; RBC 4.09 m/uL (3.80-5.40); RDW 21.6 % (11.5-15.5); WBC 7.1 k/uL (3.8-10.6)
[2018-09-28 05:41] LABS: Calcium 9.3 mg/dL (8.4-10.2); Magnesium 2.3 mg/dL (1.6-2.3); Phosphorus 3.6 mg/dL (2.5-4.5); Potassium 3.2 mmol/L (3.5-5.1)
[2018-09-28 07:00] LABS: Glucose,Whole Blood 91 mg/dL (75-99)
[2018-09-28] MEDS: INSULIN ASPART 100 UNIT/ML 1 ML 10 ML VIAL SQ SCH ×4 (07:07→21:20)
[2018-09-28] MEDS: SYMBICORT 160-4.5 MCG INHALER INHALATION SCH ×2 (07:37→20:40)
[2018-09-28] MEDS: IPRATROPIUM-ALBUTEROL 3 ML NEB INHALATION SCH ×4 (07:37→20:39)
[2018-09-28] MEDS ORDERED: Potassium Replacement Protocol 1 EACH MISC MISCELLANE PRN (07:57)
--- NOTE | 2018-09-28 08:47 | XR ---
EXAMINATION TYPE: XR chest 1V portable DATE OF EXAM: 09/28/2018 COMPARISON: 09/27/2018 HISTORY: Shortness of breath and PICC line placement. TECHNIQUE: Single frontal view of the chest is obtained. FINDINGS: There is improved aeration of the left lentiform and right infrahilar region. Mild pulmona ry vascular congestion is again seen. Retrocardiac airspace is less conspicuous and obscures the harsha diaphragm and costophrenic angle. Right-sided PICC is unchanged in position terminating in the distal superior vena cava. Pulmonary vascular congestion has improved. Heart is again enlarged. IMPRESSION: Improved aeration of the lungs with mild pulmonary vascular congestion and retrocardiac airspace remaining, likely attributable to a small left pleural effusion and atelectasis.
[2018-09-28] MEDS: APIXABAN 5 MG TAB PO SCH ×2 (08:55→21:08)
[2018-09-28] MEDS: DILTIAZEM ORAL 30 MG TAB PO SCH ×3 (08:55→21:08)
[2018-09-28] MEDS: PIPERACILLIN-TAZOBACTAM 3.375 GM in SODIUM CHLORIDE 0.9% 100 ML IVPB SCH ×2 (08:55→17:04)
[2018-09-28] MEDS: FUROSEMIDE 10 MG/ML 4 ML VIAL IV SCH ×2 (08:55→21:08)
[2018-09-28] MEDS: PANTOPRAZOLE 40 MG TABLET PO SCH (08:55)
[2018-09-28] MEDS: METOPROLOL TARTRATE 50 MG TAB PO SCH ×2 (08:56→21:07)
[2018-09-28] MEDS: POTASSIUM CHLORIDE ER 20 MEQ TAB.ER PO SCH ×2 (08:56→11:12)
[2018-09-28 09:02] LABS: ABG PCO2 89 mmHg (35-45)
[2018-09-28] MEDS: DAPTOmycin 500 MG in SODIUM CHLORIDE 0.9% 50 ML IVPB SCH (11:12)
[2018-09-28 12:12] LABS: Glucose,Whole Blood 161 mg/dL (75-99)
--- NOTE | 2018-09-28 12:33 | P.PN ---
Subjective Progress Note Date: 09/28/18 Principal diagnosis: Acute on chronic hypoxic and hypercapnic respiratory failure, multifactorial. O This is a 68-year-old female patient, morbidly obese presented to the hospital because of diminished level of consciousness and cellulitis of the lower extremity. The patient developed a large vesicle over the pretibial area and the right lower extremity and ultimately the vesicle pops and the patient had a large erythematous patch in the right lower extremity at the site of the previous vesicle with skin irregularity and ulceration. The patient has chronic lower extremity edema bilaterally. No reported fever or chills. Nevertheless the patient was becoming more lethargic. She came into the emergency department the patient was found to be hypoxic. Her initial pulse ox was in the mid/low 80s. The patient was placed immediately on BiPAP at a car to the patient is on BiPAP at a pressure of over 5 cm of water. He is also on a FiO2 of 50%. The chest x-ray is limited because of her body habitus. Nevertheless, the patient has no cough or sputum production. No reported chest pain. No sputum production. She was also started on accommodation of Rocephin and Zithromax suspecting an underlying pneumonia and she was admitted to the hospital. I saw this patient and I also talked to her daughter at the bedside. The concern is for now right lower extremity cellulitis. Started this patient IV Zosyn pending infectious disease consultation. I reviewed the blood gases from this morning and the results are as mentioned above. Despite ongoing diminished level of consciousness, the patient is arousable and she can follow commands and answer questions appropriately. My last encounter with this patient was in the office and at that time I checked her BiPAP machine which is set at a pressure of 14/7 cm of water. She was extremely compliant and her AHI while on treatment was less than 5 consistent with successful BiPAP therapy. The patient has a stable renal function with a creatinine of 1.25 and a time of admission. Her white cell count is 11.1. She has also station to pressure ulcer in her left buttocks. No aspiration. No chest pain. She is moving all 4 extremities without any limitation. On 09/20/2018 patient was noted to be somnolent, hard to arouse, repeat blood gas was obtained, and showed pO2 of 79, pCO2 of 97, and pH of 7.23, consistent with an acute on chronic hypercapnic respiratory failure. On clinical exam patient was quite somnolent, stuporous, decision was made to move the patient is a intensive care unit, she continues on IV diuretics, and 40 mg every 8 hours , her weight actually increased by 1.3 kg in the last 24 hours, patient did not have an indwelling catheter, and has been incontinent of large amount of urine, says hard to estimate. Lung sounds are extremely diminished, her tidal volume is 325 ML on the BiPAP support. BiPAP settings of 16/5, and FiO2 of 40%. X- ray was obtained, and showed cardiomegaly with bilateral consolidation, interstitial edema. Patient was seen in consultation by infectious disease service, she is getting local wound care to the lower extremity cellulitis, she is on antibiotic coverage in the form of Zosyn. Wound cultures are positive for presumptive staph aureus, and gram-negative bacilli, cultures are pending. Repeat blood gases in the intensive care unit showed him pO2 of 88, pCO2 of 85, and pH of 7.29, improving blood gases, patient is started to a more alert, and responsive. Sucks is 96% on FiO2 of 40%, she is afebrile, patient is atrial fibrillation, patient has history of chronic A. fib, she is anticoagulated with the Apixaban. On 09/21/2018 patient seen in follow-up in the intensive care unit, she wore the BiPAP most of the day yesterday, and during the night, she was able to tolerate nasal cannula trials for meals yesterday. Today's exam: Patient is awake and alert, in no acute distress. Afebrile, hemodynamically stable, lung sounds are diminished, no rhonchi or wheezes, today's chest x-ray has been reviewed by Dr. Bazan, and showed improved volume status. She is diuresing , remains on Lasix 40 mg every 8 hours, and she is in -1956 mL over the last 24 hours. Denies any chest pain, she is receiving local wound care to the left leg cellulitis, and she is covered with Zosyn, ID service is following. On 09/22/2018 patient seen in follow-up in intensive care unit, she is currently awake and alert, on 6 L per high flow nasal cannula, she is wearing a BiPAP most of the time in between meals and at bedtime. Patient is able to come off for mealtimes however she becomes lethargic afterwards and has to go back on BiPAP. Afebrile, no chills, hemodynamically stable, microbiology results have been reviewed, and showed MRSA and Pseudomonas in the wound culture , and VRE and Pseudomonas in the urine culture, blood cultures were negative. Patient is currently just on Zosyn, we will add daptomycin, she continues on IV Lasix, at 40 mg every 12 hours, and she is in negative fluid balance. Today's chest x-ray was reviewed by Dr. Bazan and showed congestive heart failure with mild pulmonary vessel congestion, moderate left pleural effusion and trace right pleural effusion and bibasilar airspace disease. On 09/23/2018 patient seen in follow-up in the intensive care unit, she is awake and alert, she is wearing BiPAP most of the time, she has been able to come off for meals. She is on IV diuretics, she is diuresing , she is in -971 mL fluid balance. In no acute distress. Current antibiotic coverage includes Zosyn and daptomycin, urine cultures showed MRSA and pseudomonas aeruginosa, and urine culture was positive for enterococcus faecium, mycin resistant and pseudomonas aeruginosa. Infectious disease service is following. His chest x- ray was reviewed by Dr. Bazan, and showed some residual left pleural effusion , findings of congestive heart failure improving. Labs have been reviewed, WBC is 6.9, hemoglobin is 11.7, sodium is 140 potassium is 5.8, chloride is 93, CO2 is 40, B1 is 87 and creatinine is 1.1. We'll give the patient 2 A of sodium bicarb for hyperkalemia related to respiratory acidosis On 09/24/2018 I see this patient in ICU. Overnight she was kept on a BiPAP and this morning she was switched to a 6 L about 2 by nasal cannula. A follow-up blood. This will follow. She is doing well. She has no specific complaints. He has been on IV antibiotics regarding the right lower extremity cellulitis. A follow-up blood gases is to follow today. Meanwhile, her blood work shows a component of metabolic alkalosis which is compensated at and a serum bicarb is up to 42. White cell count is not elevated. She is hemodynamically stable. She is being diuresed with IV Lasix. She is a negative fluid balance. She has produced approximately 2.6 L 40 yesterday and 3.1 L for today and she remains in a negative fluid balance for all these days. Tolerating his diet pH is moving all 4 extremities without any limitation. Serum potassium level is down to 4.9. On 09/25/2008 and I'm seeing this patient in follow-up in the intensive care unit. I took her off the BiPAP this morning and on 6 L of oxygen by nasal cannula and when the patient's blood gas showed a pH of 7.37 with a pCO2 of 83 and pO2 of 67. She is still using the BiPAP on and off during the day and continuously at nighttime. She is still being treated with daptomycin for a lower extremity cellulitis. No new complaints. Tolerating diet. Mental status is awake and alert. She follows commands and answering questions appropriately. She is a negative fluid balance as the patient is being dialyzed IV Lasix and the patient is a negative fluid balance of 1.7 L on 2017. No nausea. No vomiting. No abdominal pain. No fever. No chills. She is essentially sedentary. She is morbidly obese with a BMI of 71.8 and she is unable to ambulate at this point in time. Patient was reevaluated today on 09/26/2018, remains in the ICU, presently on 5 L nasal cannula, and she was on BiPAP last night. ABG this morning on 6 L nasal cannula showed a pO2 of 89, pCO2 of 89 pH of 7.30. Her other labs were reviewed, patient is basically about the same, she is laying in bed, lethargic, however she is definitely arousable. Patient remains in the intensive care unit. Definitely has no complaints. Follows commands, answers questions appropriately, she is morbidly obese, BMI of 71.8. Bedridden and she does not ambulate. Chest x-ray today continues to show enlarged heart, patchy basilar density persists, prominent interstitial markings. Some improvement in aeration overall. Patient was reevaluated today on 09/27/2018, remains in the ICU, on nasal cannula, intermittently on BiPAP. Patient is basically about the same, she has episodes of lethargy most likely related to hypercapnia. BiPAP is at bedside, and could be used as needed. Patient is arousable today, and she does not seem to be in any form of respiratory distress. Relatively asymptomatic. Her labs were reviewed relatively normal CBC and the relatively normal basic metabolic profile except for bicarb of 40 BUN is 47 creatinine is 1.27, slightly worse compared to the last few days. Patient had a PICC line placed, and no complications noted. Patient was seen again on 09/28/2018, remains intermittently alternating between nasal cannula and BiPAP. Presently on BiPAP. Patient is basically about the same, continues to have intermittent episodes of lethargy and she is morbidly obese, bedridden, and no major foreign exchange dealer the last 24 hours. Arousable, follows simple instructions, remains on diuretics, bronchodilators, and antibiotics. CBC is relatively normal electrolytes showed low potassium being corrected BUN is 45 creatinine is 1.31. Objective - Vital Signs Vital signs: Vital Signs Temp 98.4 F 09/28/18 06:49 Pulse 63 09/28/18 11:21 Resp 14 09/28/18 06:49 BP 116/74 09/28/18 06:49 Pulse Ox 98 09/28/18 06:49 Intake & Output 09/27/18 09/28/18 09/28/18 18:59 06:59 18:59 Intake Total 640 25 Output Total 1050 600 Balance -410 -575 Weight 189.6 kg 193.1 kg Intake: IV 190 25 0.9 Sodium Chloride 90 25 Piperacillin-Tazobactam 3 100 .375 gm In Sodium Chloride 0.9% 100 ml @ 25 mls/hr IVPB Q8HR [facility] Rx# :[id number] Oral 450 Output: Urine 1050 600 Other: Voiding Method Indwelling Catheter Indwelling Catheter Indwelling Catheter - Exam GENERAL: The patient is morbidly obese arousable intermittently lethargic and sleepy Head: Atraumatic, normocephalic. HEENT: Pupils are round and equally reacting to light. EOMI. No scleral icterus. No conjunctival pallor. Normocephalic, atraumatic. No pharyngeal erythema. No thyromegaly. CARDIOVASCULAR: S1 and S2 present. No murmurs, rubs, or gallops. PULMONARY: Extremely diminished breath sound bilaterally, no rhonchi and no wheezes. ABDOMEN: Soft, nontender, nondistended, normoactive bowel sounds. No palpable organomegaly. MUSCULOSKELETAL: No joint swelling or deformity. EXTREMITIES: 2+ bilateral pedal edema, dressings noted on both lower extremities , being followed by Dr. Shepherd.. NEUROLOGICAL: Lethargic, arousable, follows instructions. Moves all extremities. No gross focal neurologic deficit. SKIN: right leg cellulitis, both legs are wrapped with sterile dressings. - Labs CBC & Chem 7: 09/28/18 05:00 09/28/18 05:00 Labs: Abnormal Lab Results - Last 24 Hours (Table) 09/26/18 09/27/18 09/27/18 Range/Units 09:40 17:08 20:32 Hgb (11.4-16.0) gm/dL MCHC (31.0-37.0) g/dL RDW (11.5-15.5) % ABG pCO2 89 H* (35-45) mmHg ABG HCO3 44 H* (21-25) mmol/L Potassium (3.5-5.1) mmol/L Chloride (98-107) mmol/L Carbon Dioxide (22-30) mmol/L BUN (7-17) mg/dL Creatinine (0.52-1.04) mg/dL POC Glucose (mg/dL) 123 H 223 H (75-99) mg/dL 09/28/18 09/28/18 09/28/18 Range/Units 05:00 05:00 12:00 Hgb 10.8 L (11.4-16.0) gm/dL MCHC 29.3 L (31.0-37.0) g/dL RDW 21.6 H (11.5-15.5) % ABG pCO2 (35-45) mmHg ABG HCO3 (21-25) mmol/L Potassium 3.2 L (3.5-5.1) mmol/L Chloride 91 L (98-107) mmol/L Carbon Dioxide 42 H* (22-30) mmol/L BUN 45 H (7-17) mg/dL Creatinine 1.31 H (0.52-1.04) mg/dL POC Glucose (mg/dL) 161 H (75-99) mg/dL Assessment and Plan Assessment: Impression: 1 acute on chronic hypoxic and hypercapnic respiratory failure secondary to obesity/hypoventilation syndrome, obstructive sleep apnea syndrome, restrictive lung disease, 2 acute cellulitis, remains on daptomycin and IV Zosyn. Patient had VRE and Pseudomonas in the urine and MRSA with pseudomonas and the wounds. This is being addressed by infectious disease on the case. 3 obesity/hypoventilation syndrome 4 severe restrictive lung disease secondary to morbid obesity 5 multiple comorbidities including hypertension, chronic atrial fibrillation, stage II chronic kidney disease, recurrent cellulitis of lower extremities bilaterally and poor performance and functional status secondary to above comorbidities. Recommendation: Continue present supportive care measures, will likely arrange for transfer out of the ICU once a bed becomes available. Again long-term prognosis is extremely poor and guarded, haven't seen her daughter to be able to discuss the CODE STATUS yet. Time with Patient: Less than 30
[2018-09-28 17:38] LABS: Glucose,Whole Blood 145 mg/dL (75-99)
[2018-09-28] MEDS: acetaZOLAMIDE 250 MG TAB PO SCH (18:40)
[2018-09-28 20:39] LABS: Glucose,Whole Blood 167 mg/dL (75-99)
--- NOTE | 2018-09-28 21:53 | PN ---
PROGRESS NOTE Patient is seen for followup for acute kidney injury. She currently has significant volume overload and she is being diuresed. Serum CO2 is noted to be elevated at 42 today. The overall patient is comfortable. She denies any significant complaints. She has had good urine output of about 2.2 L for 24 hours. The patient is maintained on IV Lasix 40 mg q.12 hours. PHYSICAL EXAMINATION: Patient is awake, comfortable. This morning blood pressure was 116/74, heart rate of about 90 per minute. Patient is afebrile. Examination of the heart S1, S2. Examination of lungs bilateral breath sounds are heard. Abdomen is soft, nontender. Examination of lower extremity shows chronic edema. Chronic skin changes, about 3+ bilaterally. [employer] exam is grossly intact. LAB: Show sodium 138, potassium 3.2, chloride 91, CO2 is 42, BUN 45, serum creatinine 1.3, hemoglobin 10.8 g/dL. ASSESSMENT: 1. Acute kidney injury, nonoliguric, acute tubular necrosis with severe volume overload. Continue with current dose of Lasix. 2. Urinary tract infection with urine culture growing VRE and Pseudomonas. 3. Right leg wound with wound culture growing Staph aureus and Pseudomonas. 4. Status post vent dependent respiratory failure. 5. Significant volume overload. 6. Metabolic alkalosis secondary to diuretics. We will give 1 dose of Diamox. PLAN: Diamox x1. Continue current dose of Lasix. Repeat labs in a.m. I will decrease the Lasix if metabolic alkalosis is worse. MMODL / IJN: [id number] /
--- NOTE | 2018-09-28 23:22 | P.PN ---
Subjective this is a [facility] 68 [facility], a fib on eliquis, diastolic CHF, GERD, GI Bleed, hypertension who presents with dyepsnea, not relieved by BiPAP at home, she was recently visited ED for lower extremity rash. pt was admitted to ICU for acute on chronic hypoxic resp failure with some elements of fluid overload radha on cxr. pt has positive urine culture for enterococcus and gram negative bacilli. and wound culture that is positive for MRSA and pseudomonas. he mild leukocytosis on admission was resolved. creatinine 1.14. sugar is controlled. 09/22/2018 pt was seen and examined in the ICU, pt was still on BiPAP machine. pt still looks lethargic and tired , pt wound c/s: MRSA and pseudomonas, while UC: VRE and enterococcus and pseudomonas, pt was started on Daptomycin. pt is afebrile, her leukocytosis has resolved and WBC: 6.1K , bp is at acceptable range. rest of vital looks stable, pt is on BiPAP, her blood is still acidemic with PG 7.1 and PCO2 of 85. pt is been followed in the ICU by critical care team and their input is appreciated 09/23/2018 Patient remains in the ICU on CPAP/BiPAP machine, she has pain in the left lower extremity from her cellulitis which is the same since admission. Her blood pressure is stable and she is saturating 94% on 6 L nasal cannula. No leukocytosis and her CBC were unremarkable. Sodium 140. Potassium elevated at 5.8. Pulmonary team are following the patient and they gave the patient sodium bicarb And creatinine 1.1. Monitor potassium level 09/24/2018 Patient's seen and examined in the ICU today. She is feeling better and breathing is looks calm her. She is without the CPAP/BiPAP today. She was seen on nasal cannula saturation well and eating her breakfast daughter at bedside to help her. She still complaining from pain in her lower exudative slightly but she said that is been improving. She denies chest pain or dyspnea. No abdominal pain. No fever, little bit tachycardic. Blood pressure 120/80. Saturation 92% on 6 L. ABG done today showing pH of 7.3 with high pCO2 at 93. PO2 is 64. BMP showing sodium 138 with potassium 4.9 and high carbon dioxide at 42. Sugar looks controlled She is currently on daptomycin on positive urine and wound culture for pseudomonas, as well as MRSA in the leg and enterococcus in the urine 09/25/2018 Patient seen and examined in the ICU today. Patient has taken all the BiPAP oriented and she is more awake and breathing more easily compared to previous days. Her pain and lower extremity is better. Patient remains on a breathing treatment and daptomycin for her lower extremity cellulitis. However patient looks like still need to be monitored in the intensive care unit. Patient remains on daptomycin for MRSA and pseudomonas infection as well as enterococcus in the urine. 09/26/2018 Patient remains in the ICU, she is off BiPAP. Her breathing is slowly improving. Saturation 92-95% on 6 L nasal cannula. Pain in the lower extremity. CBC was unremarkable however during the ABG she is has pH of 7.3 with high pCO2 at 89%. With high bicarb and BMP at 44 09/27/2018 pt continuue in the ICU , her breathing is improving , she is currently select floor overflow, picc line was placed today for prolonged antibioitic . cbc and BMP remain unremarkable. 09/28/2018 pt is more stable today , she was transferred out of the ICU to the general medical floor. no chest pain , some dyspnea , comparable to yesterday . hemodynamically stable and she is saturating 92 % on 2L . diuretic is added today , electrolytes replaced , remains on zosyn for multiple positive culture , labs shows no leukocytosis with creatinine 1.3 Objective - Vital Signs Vital signs: Vital Signs Temp 97.7 F 09/28/18 14:26 Pulse 65 09/28/18 16:05 Resp 24 09/28/18 14:26 BP 104/58 09/28/18 14:26 Pulse Ox 90 L 09/28/18 14:26 Intake & Output 09/28/18 09/28/18 09/29/18 06:59 18:59 06:59 Intake Total 25 630 Output Total 600 301 Balance -575 329 Weight 193.1 kg Intake: IV 25 150 0.9 Sodium Chloride 25 DAPTOmycin 500 mg In 50 Sodium Chloride 0.9% 50 ml @ 100 mls/hr IVPB Q24H [facility] Rx#:[id number] Piperacillin-Tazobactam 3 100 .375 gm In Sodium Chloride 0.9% 100 ml @ 25 mls/hr IVPB Q8HR [facility] Rx# :[id number] Oral 480 Output: Urine 600 300 Stool 1 Other: Voiding Method Indwelling Catheter Indwelling Catheter - Exam GENERAL: The patient is alert and oriented x3, not in any acute distress. morbidly obese HEENT: Pupils are round and equally reacting to light. EOMI. No scleral icterus. No conjunctival pallor. Normocephalic, atraumatic. No pharyngeal erythema. No thyromegaly. CARDIOVASCULAR: S1 and S2 present. No murmurs, rubs, or gallops. PULMONARY: Chest is clear to auscultation, no wheezing or crackles. decreased breath sounds. ABDOMEN: Soft, nontender, nondistended, normoactive bowel sounds. No palpable organomegaly. MUSCULOSKELETAL: No joint swelling or deformity. EXTREMITIES: No cyanosis, clubbing, or pedal edema. NEUROLOGICAL: Gross neurological examination did not reveal any focal deficits. SKIN: right leg cellulitis - Labs CBC & Chem 7: 09/28/18 05:00 09/28/18 05:00 Labs: Abnormal Lab Results - Last 24 Hours (Table) 09/26/18 09/27/18 09/28/18 Range/Units 09:40 20:32 05:00 Hgb 10.8 L (11.4-16.0) gm/dL MCHC 29.3 L (31.0-37.0) g/dL RDW 21.6 H (11.5-15.5) % ABG pCO2 89 H* (35-45) mmHg ABG HCO3 44 H* (21-25) mmol/L Potassium (3.5-5.1) mmol/L Chloride (98-107) mmol/L Carbon Dioxide (22-30) mmol/L BUN (7-17) mg/dL Creatinine (0.52-1.04) mg/dL POC Glucose (mg/dL) 223 H (75-99) mg/dL 09/28/18 09/28/18 09/28/18 Range/Units 05:00 12:00 17:24 Hgb (11.4-16.0) gm/dL MCHC (31.0-37.0) g/dL RDW (11.5-15.5) % ABG pCO2 (35-45) mmHg ABG HCO3 (21-25) mmol/L Potassium 3.2 L (3.5-5.1) mmol/L Chloride 91 L (98-107) mmol/L Carbon Dioxide 42 H* (22-30) mmol/L BUN 45 H (7-17) mg/dL Creatinine 1.31 H (0.52-1.04) mg/dL POC Glucose (mg/dL) 161 H 145 H (75-99) mg/dL Assessment and Plan Assessment: acute on chronic resp failure hypoventilation obesity syndrome acute on chronic diastolic CHF cellulitis of the lower extremity with mrsa and psudomonas hypertension a fib on eliquis UTI with psudomonas and VRE Plan: this is a pleasant 68 yo F who presents with cellutitis and resp failure, pulmonary critical care team are following the pt. pt is on diuretics, uses BiPAP machine. continue with the same treatment , continue with symptomatic treatment , resume home medication , monitor lytes and vitals including glucose , cardiology consult is appreciated. . c/w same antibioitc . GI and DVT prophylaxis , further recommendation based upon pt clinical course and progress DVT prophylaxis eliquis GI prophylaxis Protonix Prognosis is guarded
[2018-09-29] MEDS: PIPERACILLIN-TAZOBACTAM 3.375 GM in SODIUM CHLORIDE 0.9% 100 ML IVPB SCH ×4 (00:44→23:24)
[2018-09-29] MEDS: HYDROcodone/APAP 5-325MG 1 EACH TAB PO PRN ×2 (01:25→23:24)
[2018-09-29] MEDS: SYMBICORT 160-4.5 MCG INHALER INHALATION SCH ×2 (06:46→18:54)
[2018-09-29] MEDS: IPRATROPIUM-ALBUTEROL 3 ML NEB INHALATION SCH ×4 (06:46→18:54)
[2018-09-29 06:55] LABS: Anisocytosis Moderate; Basophils % (A) 0 %; Eosinophils # (A) 0.1 k/uL (0-0.7); Eosinophils % (A) 1 %; HCT 38.7 % (34.0-46.0); Hypochromasia Marked; Lymphocytes # (A) 1.5 k/uL (1.0-4.8); Lymphocytes % (A) 17 %; MCH 26.2 pg (25.0-35.0); MCHC 28.4 g/dL (31.0-37.0); MCV 92.1 fL (80.0-100.0); Macrocytosis Slight; Monocytes # (A) 0.9 k/uL (0-1.0); Monocytes % (A) 10 %; Neutrophils # (A) 6.2 k/uL (1.3-7.7); Neutrophils % (A) 69 %; Platelet Count 238 k/uL (150-450); Poikilocytosis Moderate; RDW 21.9 % (11.5-15.5)
[2018-09-29 07:13] LABS: Calcium 9.5 mg/dL (8.4-10.2); Magnesium 2.4 mg/dL (1.6-2.3); Phosphorus 3.9 mg/dL (2.5-4.5); Potassium 3.7 mmol/L (3.5-5.1)
[2018-09-29 07:29] LABS: Glucose,Whole Blood 116 mg/dL (75-99)
[2018-09-29] MEDS: INSULIN ASPART 100 UNIT/ML 1 ML 10 ML VIAL SQ SCH ×4 (08:14→23:17)
[2018-09-29] MEDS: acetaZOLAMIDE 250 MG TAB PO SCH (08:15)
[2018-09-29] MEDS: METOPROLOL TARTRATE 50 MG TAB PO SCH ×2 (08:15→23:17)
[2018-09-29] MEDS: FUROSEMIDE 10 MG/ML 4 ML VIAL IV SCH ×2 (08:15→23:16)
[2018-09-29] MEDS: PANTOPRAZOLE 40 MG TABLET PO SCH (08:15)
[2018-09-29] MEDS: DILTIAZEM ORAL 30 MG TAB PO SCH ×3 (08:15→23:16)
[2018-09-29] MEDS: APIXABAN 5 MG TAB PO SCH ×2 (08:15→23:17)
--- NOTE | 2018-09-29 10:07 | XR ---
EXAMINATION TYPE: XR chest 1V portable DATE OF EXAM: 09/29/2018 COMPARISON: 09/28/2018 INDICATION: Short of breath TECHNIQUE: Single frontal view of the chest is obtained. FINDINGS: The heart size is moderately prominent. The pulmonary vasculature is normal. Mild infiltrate appears to be at the left base. This is improved from comparison. IMPRESSION: 1. Moderate cardiomegaly. 2. Improving left lower lobe infiltrate.
--- NOTE | 2018-09-29 11:32 | P.PN ---
Subjective Progress Note Date: 09/29/18 Principal diagnosis: Acute on chronic hypoxic/hypercapnic respiratory failure The patient is seen today 09/29/2018 in follow-up on the regular medical floor. She is currently awake and alert and following simple commands. Earlier this morning she had another episode of lethargy and obtundation was placed back on the BiPAP 16/5 at 45% FiO2 and has since recovered. Chest x-ray shows moderate cardiomegaly along with improving left lower lobe infiltrate. She does have ongoing issues with hypercapnia due to her morbid obesity with obesity/ hypoventilation syndrome. White count 9.0. Hemoglobin 11.0. Bicarb 41. Creatinine 1.42. She currently remains on DuoNeb inhalations, Symbicort, daptomycin and Zosyn. She is on IV diuretics as well. Objective - Vital Signs Vital signs: Vital Signs Temp 97.5 F L 09/29/18 06:23 Pulse 83 09/29/18 07:39 Resp 20 09/29/18 07:39 BP 125/75 09/29/18 07:39 Pulse Ox 92 L 09/29/18 07:39 Intake & Output 09/28/18 09/29/18 09/29/18 18:59 06:59 18:59 Intake Total 630 Output Total 301 550 Balance 329 -550 Intake: IV 150 DAPTOmycin 500 mg In 50 Sodium Chloride 0.9% 50 ml @ 100 mls/hr IVPB Q24H [facility] Rx#:[id number] Piperacillin-Tazobactam 3 100 .375 gm In Sodium Chloride 0.9% 100 ml @ 25 mls/hr IVPB Q8HR [facility] Rx# :[id number] Oral 480 Output: Urine 300 550 Stool 1 Other: Voiding Method Indwelling Catheter # Voids 0 # Bowel Movements 0 - Exam GENERAL EXAM: Morbidly obese. Alert, comfortable in no apparent distress. Currently on BiPAP. HEAD: Normocephalic. EYES: Normal reaction of pupils, equal size. NOSE: Clear with pink turbinates. THROAT: There is crowding of the posterior pharynx. No erythema or exudates. NECK: Short. No masses, no JVD. CHEST: No chest wall deformity. LUNGS: Equal air entry with faint crackles in left posterior base. Diminished. CVS: S1 and S2 normal with no audible murmur, irregular rhythm. ABDOMEN: No hepatosplenomegaly, normal bowel sounds, no guarding or rigidity. SPINE: No scoliosis or deformity SKIN: Wound of the right lower extremity CENTRAL NERVOUS SYSTEM: No focal deficits, tone is normal in all 4 extremities. EXTREMITIES: 2-3+ bilateral pedal edema. Large dressing on the right lower extremity intact. No clubbing, no cyanosis. Peripheral pulses are intact. PICC line in place. - Labs CBC & Chem 7: 09/29/18 06:45 09/29/18 06:45 Labs: Abnormal Lab Results - Last 24 Hours (Table) 09/28/18 09/28/18 09/28/18 Range/Units 12:00 17:24 20:37 Hgb (11.4-16.0) gm/dL MCHC (31.0-37.0) g/dL RDW (11.5-15.5) % Chloride (98-107) mmol/L Carbon Dioxide (22-30) mmol/L BUN (7-17) mg/dL Creatinine (0.52-1.04) mg/dL Glucose (74-99) mg/dL POC Glucose (mg/dL) 161 H 145 H 167 H (75-99) mg/dL Magnesium (1.6-2.3) mg/dL 09/29/18 09/29/18 09/29/18 Range/Units 06:45 06:45 07:26 Hgb 11.0 L (11.4-16.0) gm/dL MCHC 28.4 L (31.0-37.0) g/dL RDW 21.9 H (11.5-15.5) % Chloride 93 L (98-107) mmol/L Carbon Dioxide 41 H* (22-30) mmol/L BUN 41 H (7-17) mg/dL Creatinine 1.42 H (0.52-1.04) mg/dL Glucose 105 H (74-99) mg/dL POC Glucose (mg/dL) 116 H (75-99) mg/dL Magnesium 2.4 H (1.6-2.3) mg/dL Assessment and Plan Assessment: Impression: #1 Acute on chronic hypoxic and hypercapnic respiratory failure secondary to morbid obesity with obesity/hypoventilation syndrome, obstructive sleep apnea, restrictive lung disease. #2 Acute cellulitis remains on daptomycin and IV Zosyn. Patient had VRE and Pseudomonas in the urine and MRSA with Pseudomonas and the wounds. Infectious diseases on the case. #3 Morbid obesity with obesity/hypoventilation syndrome. #4 Obstructive sleep apnea. #5 Restrictive lung disease. #6 Chronic atrial fibrillation. #7 Hypertension. #8 Chronic chronic kidney disease stage II. #9 Recurrent cellulitis of the lower extremities secondary to chronic venous stasis and edema. #10 Poor overall functional performance based on the above-mentioned multiple comorbidities. Plan: The patient was seen and evaluated by Dr. Joshi. Chest x-ray was reviewed. No need for ABGs this morning. She is more awake and alert. She continues to have issues with lethargy and somnolence secondary to hypercapnia when off the BiPAP for any extended period of time. Her overall prognosis remains quite poor. We'll continue with current treatment plan. We'll continue to follow. I, the cosigning physician, performed a history & physical examination of the patient. Lungs sounds are clear anteriorly faint crackles in left posterior base. Maintaining good O2 saturations in the 90s on 5 L/m per nasal cannula tolerating with BiPAP at 45% FiO2. I discussed the assessment and plan of care with my nurse practitioner, Iveth Da Silva. I attest to the above note as dictated by her.
[2018-09-29 12:25] LABS: Glucose,Whole Blood 105 mg/dL (75-99)
--- NOTE | 2018-09-29 12:48 | P.PN ---
Subjective this is a pleasant 68 [facility], a fib on eliquis, diastolic CHF, GERD, GI Bleed, hypertension who presents with dyepsnea, not relieved by BiPAP at home, she was recently visited ED for lower extremity rash. pt was admitted to ICU for acute on chronic hypoxic resp failure with some elements of fluid overload radha on cxr. pt has positive urine culture for enterococcus and gram negative bacilli. and wound culture that is positive for MRSA and pseudomonas. he mild leukocytosis on admission was resolved. creatinine 1.14. sugar is controlled. 09/22/2018 pt was seen and examined in the ICU, pt was still on BiPAP machine. pt still looks lethargic and tired , pt wound c/s: MRSA and pseudomonas, while UC: VRE and enterococcus and pseudomonas, pt was started on Daptomycin. pt is afebrile, her leukocytosis has resolved and WBC: 6.1K , bp is at acceptable range. rest of vital looks stable, pt is on BiPAP, her blood is still acidemic with PG 7.1 and PCO2 of 85. pt is been followed in the ICU by critical care team and their input is appreciated 09/23/2018 Patient remains in the ICU on CPAP/BiPAP machine, she has pain in the left lower extremity from her cellulitis which is the same since admission. Her blood pressure is stable and she is saturating 94% on 6 L nasal cannula. No leukocytosis and her CBC were unremarkable. Sodium 140. Potassium elevated at 5.8. Pulmonary team are following the patient and they gave the patient sodium bicarb And creatinine 1.1. Monitor potassium level 09/24/2018 Patient's seen and examined in the ICU today. She is feeling better and breathing is looks calm her. She is without the CPAP/BiPAP today. She was seen on nasal cannula saturation well and eating her breakfast daughter at bedside to help her. She still complaining from pain in her lower exudative slightly but she said that is been improving. She denies chest pain or dyspnea. No abdominal pain. No fever, little bit tachycardic. Blood pressure 120/80. Saturation 92% on 6 L. ABG done today showing pH of 7.3 with high pCO2 at 93. PO2 is 64. BMP showing sodium 138 with potassium 4.9 and high carbon dioxide at 42. Sugar looks controlled She is currently on daptomycin on positive urine and wound culture for pseudomonas, as well as MRSA in the leg and enterococcus in the urine 09/25/2018 Patient seen and examined in the ICU today. Patient has taken all the BiPAP oriented and she is more awake and breathing more easily compared to previous days. Her pain and lower extremity is better. Patient remains on a breathing treatment and daptomycin for her lower extremity cellulitis. However patient looks like still need to be monitored in the intensive care unit. Patient remains on daptomycin for MRSA and pseudomonas infection as well as enterococcus in the urine. 09/26/2018 Patient remains in the ICU, she is off BiPAP. Her breathing is slowly improving. Saturation 92-95% on 6 L nasal cannula. Pain in the lower extremity. CBC was unremarkable however during the ABG she is has pH of 7.3 with high pCO2 at 89%. With high bicarb and BMP at 44 09/27/2018 pt continuue in the ICU , her breathing is improving , she is currently select floor overflow, picc line was placed today for prolonged antibioitic . cbc and BMP remain unremarkable. 09/28/2018 pt is more stable today , she was transferred out of the ICU to the general medical floor. no chest pain , some dyspnea , comparable to yesterday . hemodynamically stable and she is saturating 92 % on 2L . diuretic is added today , electrolytes replaced , remains on zosyn for multiple positive culture , labs shows no leukocytosis with creatinine 1.3 09/29/2018 Patient seen and examined in the general medical floor. Patient was drowsy this morning because she was not using her BiPAP/CPAP machine very well. Back and on reevaluation she is more awake. 2% on 5 L oxygen via NC. WBC within normal limits. Creatinine 1.4. Sugar controlled. Magnesium 2.4. Pulmonary following the case. Objective - Vital Signs Vital signs: Vital Signs Temp 97.5 F L 09/29/18 06:23 Pulse 83 09/29/18 07:39 Resp 20 09/29/18 07:39 BP 125/75 09/29/18 07:39 Pulse Ox 92 L 09/29/18 07:39 Intake & Output 09/28/18 09/29/18 09/29/18 18:59 06:59 18:59 Intake Total 630 Output Total 301 550 Balance 329 -550 Intake: IV 150 DAPTOmycin 500 mg In 50 Sodium Chloride 0.9% 50 ml @ 100 mls/hr IVPB Q24H [facility] Rx#:[id number] Piperacillin-Tazobactam 3 100 .375 gm In Sodium Chloride 0.9% 100 ml @ 25 mls/hr IVPB Q8HR [facility] [place] Rx# :[id number] Oral 480 Output: Urine 300 550 Stool 1 Other: Voiding Method Indwelling Catheter # Voids 0 # Bowel Movements 0 - Exam GENERAL: The patient is alert and oriented x3, not in any acute distress. morbidly obese HEENT: Pupils are round and equally reacting to light. EOMI. No scleral icterus. No conjunctival pallor. Normocephalic, atraumatic. No pharyngeal erythema. No thyromegaly. CARDIOVASCULAR: S1 and S2 present. No murmurs, rubs, or gallops. PULMONARY: Chest is clear to auscultation, no wheezing or crackles. decreased breath sounds. ABDOMEN: Soft, nontender, nondistended, normoactive bowel sounds. No palpable organomegaly. MUSCULOSKELETAL: No joint swelling or deformity. EXTREMITIES: No cyanosis, clubbing, or pedal edema. NEUROLOGICAL: Gross neurological examination did not reveal any focal deficits. SKIN: right leg cellulitis - Labs CBC & Chem 7: 09/29/18 06:45 09/29/18 06:45 Labs: Abnormal Lab Results - Last 24 Hours (Table) 09/28/18 09/28/18 09/29/18 Range/Units 17:24 20:37 06:45 Hgb 11.0 L (11.4-16.0) gm/dL MCHC 28.4 L (31.0-37.0) g/dL RDW 21.9 H (11.5-15.5) % Chloride (98-107) mmol/L Carbon Dioxide (22-30) mmol/L BUN (7-17) mg/dL Creatinine (0.52-1.04) mg/dL Glucose (74-99) mg/dL POC Glucose (mg/dL) 145 H 167 H (75-99) mg/dL Magnesium (1.6-2.3) mg/dL 09/29/18 09/29/18 09/29/18 Range/Units 06:45 07:26 12:10 Hgb (11.4-16.0) gm/dL MCHC (31.0-37.0) g/dL RDW (11.5-15.5) % Chloride 93 L (98-107) mmol/L Carbon Dioxide 41 H* (22-30) mmol/L BUN 41 H (7-17) mg/dL Creatinine 1.42 H (0.52-1.04) mg/dL Glucose 105 H (74-99) mg/dL POC Glucose (mg/dL) 116 H 105 H (75-99) mg/dL Magnesium 2.4 H (1.6-2.3) mg/dL Assessment and Plan Assessment: acute on chronic resp failure hypoventilation obesity syndrome acute on chronic diastolic CHF cellulitis of the lower extremity with mrsa and psudomonas hypertension a fib on eliquis UTI with psudomonas and VRE Plan: this is a pleasant 68 yo F who presents with cellutitis and resp failure, pulmonary critical care team are following the pt. pt is on diuretics, uses BiPAP machine. continue with the same treatment , continue with symptomatic treatment , resume home medication , monitor lytes and vitals including glucose , cardiology consult is appreciated. . c/w same antibioitc . GI and DVT prophylaxis , further recommendation based upon pt clinical course and progress DVT prophylaxis eliquis GI prophylaxis Protonix Prognosis is guarded
[2018-09-29] MEDS: DAPTOmycin 500 MG in SODIUM CHLORIDE 0.9% 50 ML IVPB SCH (13:04)
[2018-09-29 17:31] LABS: Glucose,Whole Blood 144 mg/dL (75-99)
--- NOTE | 2018-09-29 23:47 | PN ---
PROGRESS NOTE HISTORY: The patient is seen for followup for acute kidney injury, mainly acute tubular necrosis, currently nonoliguric. The patient is also significantly volume overloaded and is currently being diuresed. The Lasix is at 40 mg IV every 12 hours. The patient had an indwelling Diop catheter which was removed. She has been voiding. We need to measure accurate urine output. PHYSICAL EXAMINATION: This afternoon, patient was comfortable, awake, not in any acute distress. Blood pressure was 105/52, heart rate 88 per minute. She was afebrile. Examination of the heart S1, S2. Examination lungs bilateral breath sounds are heard. Abdomen is soft, nontender, morbidly obese. Examination lower extremity shows bilateral extremities to be wrapped. LABS: Sodium 139, potassium 3.7, CO2 is 41, BUN 41, serum creatinine 1.42, hemoglobin 11.0 g/dL. ASSESSMENT: 1. Acute kidney injury associated with recent diuresis. Diop catheter has been removed. Patient is voiding. We will need to check urine output accurately. I will decrease the dose of Lasix tomorrow if the renal function is worse. 2. Metabolic acidosis associated with diuresis and possibly component of compensatory metabolic alkalosis from respiratory acidosis. The patient received a dose of Diamox previously. We will repeat labs in a.m. 3. Right leg wound with wound culture growing Staph aureus and Pseudomonas. 4. Urinary tract infection with urine culture growing VRE and Pseudomonas. 5. Volume overload, currently being diuresed. PLAN: Repeat labs in a.m. Consider decreasing the dose of diuretics and switching to p.o. Monitor urine output accurately. Repeat labs in a.m. [id number] / IJN: [id number] /
[2018-09-30 02:16] LABS: Glucose,Whole Blood 122 mg/dL (75-99)
[2018-09-30] MEDS: SYMBICORT 160-4.5 MCG INHALER INHALATION SCH (07:01)
[2018-09-30] MEDS: IPRATROPIUM-ALBUTEROL 3 ML NEB INHALATION SCH ×3 (07:01→15:24)
[2018-09-30 08:10] LABS: Glucose,Whole Blood 118 mg/dL (75-99)
[2018-09-30] MEDS: INSULIN ASPART 100 UNIT/ML 1 ML 10 ML VIAL SQ SCH ×2 (08:13→12:28)
[2018-09-30 08:19] VITALS: RESP 16
[2018-09-30] MEDS: PIPERACILLIN-TAZOBACTAM 3.375 GM in SODIUM CHLORIDE 0.9% 100 ML IVPB SCH (08:21)
[2018-09-30] MEDS: acetaZOLAMIDE 250 MG TAB PO SCH (08:23)
[2018-09-30] MEDS: DILTIAZEM ORAL 30 MG TAB PO SCH (08:23)
[2018-09-30] MEDS: APIXABAN 5 MG TAB PO SCH (08:23)
[2018-09-30] MEDS: PANTOPRAZOLE 40 MG TABLET PO SCH (08:23)
[2018-09-30] MEDS: FUROSEMIDE 10 MG/ML 4 ML VIAL IV SCH (08:23)
--- NOTE | 2018-09-30 08:34 | XR ---
EXAMINATION TYPE: XR chest 1V portable DATE OF EXAM: 09/30/2018 COMPARISON: Prior chest x-ray 09/29/2018 HISTORY: Shortness of breath TECHNIQUE: Single frontal view of the chest is obtained. FINDINGS: Heart is enlarged. Central vascularity and interstitium are prominent. Right-sided PICC li ne remains in place. No evident pneumothorax. Bibasilar density persists. IMPRESSION: Correlate for congestive heart failure. There may be basilar edema versus atelectasis, d ifficult to exclude pneumonia, effusion.
[2018-09-30 08:45] LABS: Anisocytosis Moderate; Basophils % (A) 0 %; Eosinophils # (A) 0.1 k/uL (0-0.7); Eosinophils % (A) 1 %; HCT 36.8 % (34.0-46.0); HGB 10.7 gm/dL (11.4-16.0); Hypochromasia Marked; Lymphocytes # (A) 1.9 k/uL (1.0-4.8); Lymphocytes % (A) 23 %; MCH 26.4 pg (25.0-35.0); MCHC 29.2 g/dL (31.0-37.0); MCV 90.7 fL (80.0-100.0); Macrocytosis Slight; Mean Platelet Volume 8.3; Monocytes # (A) 0.5 k/uL (0-1.0); Monocytes % (A) 6 %; Neutrophils # (A) 5.5 k/uL (1.3-7.7); Neutrophils % (A) 67 %; Platelet Count 257 k/uL (150-450); Poikilocytosis Moderate; RBC 4.06 m/uL (3.80-5.40); RDW 21.7 % (11.5-15.5); WBC 8.2 k/uL (3.8-10.6)
[2018-09-30] MEDS ORDERED: SILVER sulfADIAZINE Cream 400 GM 1 APPLIC APPLIC TOPICAL SCH (09:00)
[2018-09-30 09:02] LABS: Calcium 9.5 mg/dL (8.4-10.2); Magnesium 2.4 mg/dL (1.6-2.3); Phosphorus 3.3 mg/dL (2.5-4.5); Potassium 3.4 mmol/L (3.5-5.1)
[2018-09-30] MEDS: METOPROLOL TARTRATE 50 MG TAB PO SCH (10:24)
--- NOTE | 2018-09-30 10:34 | P.PN ---
Subjective Progress Note Date: 09/30/18 Principal diagnosis: Acute on chronic hypoxic/hypercapnic respiratory failure The patient is seen again today 09/30/2018 in follow-up on the regular medical floor. She is currently resting comfortably in bed. She is more awake and alert today as compared to yesterday. She denies any worsening shortness of breath, cough or congestion. She is maintaining good O2 saturations in the 90s on 5 L/m per nasal cannula. She does utilize the BiPAP 16/5 and 45% FiO2 during the night and throughout the day when napping. White count 8.2. Hemoglobin 10.7. Creatinine 1.56. Objective - Vital Signs Vital signs: Vital Signs Temp 97.1 F L 09/30/18 07:00 Pulse 80 09/30/18 10:23 Resp 16 09/30/18 07:00 BP 112/70 09/30/18 10:23 Pulse Ox 97 09/30/18 10:23 Intake & Output 09/29/18 09/30/18 09/30/18 18:59 06:59 18:59 Intake Total 1200 Output Total 350 Balance 850 Intake: Oral 1200 Output: Urine 350 Other: # Voids 2 1 # Bowel Movements 1 0 - Exam GENERAL EXAM: Morbidly obese. Alert, comfortable in no apparent distress. Currently on BiPAP. HEAD: Normocephalic. EYES: Normal reaction of pupils, equal size. NOSE: Clear with pink turbinates. THROAT: There is crowding of the posterior pharynx. No erythema or exudates. NECK: Short. No masses, no JVD. CHEST: No chest wall deformity. LUNGS: Equal air entry with faint crackles in left posterior base. Diminished. CVS: S1 and S2 normal with no audible murmur, irregular rhythm. ABDOMEN: No hepatosplenomegaly, normal bowel sounds, no guarding or rigidity. SPINE: No scoliosis or deformity SKIN: Wound of the right lower extremity CENTRAL NERVOUS SYSTEM: No focal deficits, tone is normal in all 4 extremities. EXTREMITIES: 2-3+ bilateral pedal edema. Large dressing on the right lower extremity intact. No clubbing, no cyanosis. Peripheral pulses are intact. PICC line in place. - Labs CBC & Chem 7: 09/30/18 08:20 09/30/18 08:20 Labs: Abnormal Lab Results - Last 24 Hours (Table) 09/29/18 09/29/18 09/29/18 Range/Units 12:10 17:10 20:39 Hgb (11.4-16.0) gm/dL MCHC (31.0-37.0) g/dL RDW (11.5-15.5) % Potassium (3.5-5.1) mmol/L Chloride (98-107) mmol/L Carbon Dioxide (22-30) mmol/L BUN (7-17) mg/dL Creatinine (0.52-1.04) mg/dL Glucose (74-99) mg/dL POC Glucose (mg/dL) 105 H 144 H 122 H (75-99) mg/dL Magnesium (1.6-2.3) mg/dL 09/30/18 09/30/18 09/30/18 Range/Units 07:31 08:20 08:20 Hgb 10.7 L (11.4-16.0) gm/dL MCHC 29.2 L (31.0-37.0) g/dL RDW 21.7 H (11.5-15.5) % Potassium 3.4 L (3.5-5.1) mmol/L Chloride 94 L (98-107) mmol/L Carbon Dioxide 40 H (22-30) mmol/L BUN 38 H (7-17) mg/dL Creatinine 1.56 H (0.52-1.04) mg/dL Glucose 130 H (74-99) mg/dL POC Glucose (mg/dL) 118 H (75-99) mg/dL Magnesium 2.4 H (1.6-2.3) mg/dL Assessment and Plan Assessment: Impression: #1 Acute on chronic hypoxic and hypercapnic respiratory failure secondary to morbid obesity with obesity/hypoventilation syndrome, obstructive sleep apnea, restrictive lung disease. #2 Acute cellulitis remains on daptomycin and IV Zosyn. Patient had VRE and Pseudomonas in the urine and MRSA with Pseudomonas and the wounds. Infectious diseases on the case. #3 Morbid obesity with obesity/hypoventilation syndrome. #4 Obstructive sleep apnea. #5 Restrictive lung disease. #6 Chronic atrial fibrillation. #7 Hypertension. #8 Chronic chronic kidney disease stage II. #9 Recurrent cellulitis of the lower extremities secondary to chronic venous stasis and edema. #10 Poor overall functional performance based on the above-mentioned multiple comorbidities. Plan: The patient was seen and evaluated by Dr. Joshi. She is more awake and alert. She is cleared for discharge from the pulmonary standpoint. She will need to utilize her home BiPAP nightly as well as during the day while napping. She would most likely benefit from inpatient subacute rehabilitation as she does have frequent episodes of lethargy secondary to hypercapnia if not maintained on her BiPAP, current settings are 12/6 at 45% FiO2. I, the cosigning physician, performed a history & physical examination of the patient. Lungs sounds are clear anteriorly faint crackles in left posterior base. Maintaining good O2 saturations in the 90s on 5 L/m per nasal cannula tolerating with BiPAP at 45% FiO2. I discussed the assessment and plan of care with my nurse practitioner, Iveth Da Silva. I attest to the above note as dictated by her.
--- NOTE | 2018-09-30 10:52 | P.PN ---
Subjective [facility] 68 [facility], a fib on eliquis, diastolic CHF, GERD, GI Bleed, hypertension who presents with dyepsnea, not relieved by BiPAP at home, she was recently visited ED for lower extremity rash. pt was admitted to ICU for acute on chronic hypoxic resp failure with some elements of fluid overload radha on cxr. pt has positive urine culture for enterococcus and gram negative bacilli. and wound culture that is positive for MRSA and pseudomonas. he mild leukocytosis on admission was resolved. creatinine 1.14. sugar is controlled. 09/22/2018 pt was seen and examined in the ICU, pt was still on BiPAP machine. pt still looks lethargic and tired , pt wound c/s: MRSA and pseudomonas, while UC: VRE and enterococcus and pseudomonas, pt was started on Daptomycin. pt is afebrile, her leukocytosis has resolved and WBC: 6.1K , bp is at acceptable range. rest of vital looks stable, pt is on BiPAP, her blood is still acidemic with PG 7.1 and PCO2 of 85. pt is been followed in the ICU by critical care team and their input is appreciated 09/23/2018 Patient remains in the ICU on CPAP/BiPAP machine, she has pain in the left lower extremity from her cellulitis which is the same since admission. Her blood pressure is stable and she is saturating 94% on 6 L nasal cannula. No leukocytosis and her CBC were unremarkable. Sodium 140. Potassium elevated at 5.8. Pulmonary team are following the patient and they gave the patient sodium bicarb And creatinine 1.1. Monitor potassium level 09/24/2018 Patient's seen and examined in the ICU today. She is feeling better and breathing is looks calm her. She is without the CPAP/BiPAP today. She was seen on nasal cannula saturation well and eating her breakfast daughter at bedside to help her. She still complaining from pain in her lower exudative slightly but she said that is been improving. She denies chest pain or dyspnea. No abdominal pain. No fever, little bit tachycardic. Blood pressure 120/80. Saturation 92% on 6 L. ABG done today showing pH of 7.3 with high pCO2 at 93. PO2 is 64. BMP showing sodium 138 with potassium 4.9 and high carbon dioxide at 42. Sugar looks controlled She is currently on daptomycin on positive urine and wound culture for pseudomonas, as well as MRSA in the leg and enterococcus in the urine 09/25/2018 Patient seen and examined in the ICU today. Patient has taken all the BiPAP oriented and she is more awake and breathing more easily compared to previous days. Her pain and lower extremity is better. Patient remains on a breathing treatment and daptomycin for her lower extremity cellulitis. However patient looks like still need to be monitored in the intensive care unit. Patient remains on daptomycin for MRSA and pseudomonas infection as well as enterococcus in the urine. 09/26/2018 Patient remains in the ICU, she is off BiPAP. Her breathing is slowly improving. Saturation 92-95% on 6 L nasal cannula. Pain in the lower extremity. CBC was unremarkable however during the ABG she is has pH of 7.3 with high pCO2 at 89%. With high bicarb and BMP at 44 09/27/2018 pt continuue in the ICU , her breathing is improving , she is currently select floor overflow, picc line was placed today for prolonged antibioitic . cbc and BMP remain unremarkable. 09/28/2018 pt is more stable today , she was transferred out of the ICU to the general medical floor. no chest pain , some dyspnea , comparable to yesterday . hemodynamically stable and she is saturating 92 % on 2L . diuretic is added today , electrolytes replaced , remains on zosyn for multiple positive culture , labs shows no leukocytosis with creatinine 1.3 09/29/2018 Patient seen and examined in the general medical floor. Patient was drowsy this morning because she was not using her BiPAP/CPAP machine very well. Back and on reevaluation she is more awake. 2% on 5 L oxygen via NC. WBC within normal limits. Creatinine 1.4. Sugar controlled. Magnesium 2.4. Pulmonary following the case. 09/30/2018 Patient is more awake and alert today and can participate in her plan of care. pt used her BiPAP/CPAP overnight and looks like that helped her. She was telling me she is done with her days at rehab. She had she has a family at home 10/05 Can take care of her, however I tried to explain to the patient that she is high -risk for re-admission to the hospital and the best is to go to [facility] in either as a rehab on his placement, however patient does not want that because she thinks she has copayment. Patient states that within 60 days usually she got readmitted to the hospital. Patient still on IV antibiotics daptomycin and Zosyn. The plan to switch IV Lasix to by mouth Lasix. Continue on Eliquis and pain management. Objective - Vital Signs Vital signs: Vital Signs Temp 97.1 F L 09/30/18 07:00 Pulse 92 09/30/18 10:47 Resp 16 09/30/18 07:00 BP 112/70 09/30/18 10:23 Pulse Ox 97 09/30/18 10:23 Intake & Output 09/29/18 09/30/18 09/30/18 18:59 06:59 18:59 Intake Total 1200 Output Total 350 Balance 850 Intake: Oral 1200 Output: Urine 350 Other: # Voids 2 1 # Bowel Movements 1 0 - Exam GENERAL: The patient is alert and oriented x3, not in any acute distress. morbidly obese HEENT: Pupils are round and equally reacting to light. EOMI. No scleral icterus. No conjunctival pallor. Normocephalic, atraumatic. No pharyngeal erythema. No thyromegaly. CARDIOVASCULAR: S1 and S2 present. No murmurs, rubs, or gallops. PULMONARY: Chest is clear to auscultation, no wheezing or crackles. decreased breath sounds. ABDOMEN: Soft, nontender, nondistended, normoactive bowel sounds. No palpable organomegaly. MUSCULOSKELETAL: No joint swelling or deformity. EXTREMITIES: No cyanosis, clubbing, or pedal edema. NEUROLOGICAL: Gross neurological examination did not reveal any focal deficits. SKIN: right leg cellulitis - Labs CBC & Chem 7: 09/30/18 08:20 09/30/18 08:20 Labs: Abnormal Lab Results - Last 24 Hours (Table) 09/29/18 09/29/18 09/29/18 Range/Units 12:10 17:10 20:39 Hgb (11.4-16.0) gm/dL MCHC (31.0-37.0) g/dL RDW (11.5-15.5) % Potassium (3.5-5.1) mmol/L Chloride (98-107) mmol/L Carbon Dioxide (22-30) mmol/L BUN (7-17) mg/dL Creatinine (0.52-1.04) mg/dL Glucose (74-99) mg/dL POC Glucose (mg/dL) 105 H 144 H 122 H (75-99) mg/dL Magnesium (1.6-2.3) mg/dL 09/30/18 09/30/18 09/30/18 Range/Units 07:31 08:20 08:20 Hgb 10.7 L (11.4-16.0) gm/dL MCHC 29.2 L (31.0-37.0) g/dL RDW 21.7 H (11.5-15.5) % Potassium 3.4 L (3.5-5.1) mmol/L Chloride 94 L (98-107) mmol/L Carbon Dioxide 40 H (22-30) mmol/L BUN 38 H (7-17) mg/dL Creatinine 1.56 H (0.52-1.04) mg/dL Glucose 130 H (74-99) mg/dL POC Glucose (mg/dL) 118 H (75-99) mg/dL Magnesium 2.4 H (1.6-2.3) mg/dL Assessment and Plan Assessment: acute on chronic resp failure hypoventilation obesity syndrome acute on chronic diastolic CHF cellulitis of the lower extremity with mrsa and psudomonas hypertension a fib on eliquis UTI with psudomonas and VRE Plan: this is a pleasant 68 yo F who presents with cellutitis and resp failure, pulmonary critical care team are following the pt. pt is on diuretics, uses BiPAP machine. continue with the same treatment , continue with symptomatic treatment , resume home medication , monitor lytes and vitals including glucose , cardiology consult is appreciated. . c/w same antibioitc . GI and DVT prophylaxis , further recommendation based upon pt clinical course and progress DVT prophylaxis eliquis GI prophylaxis Protonix Prognosis is guarded
--- NOTE | 2018-09-30 11:12 | US ---
EXAMINATION TYPE: US kidneys/renal and bladder DATE OF EXAM: 09/30/2018 COMPARISON: NONE CLINICAL HISTORY: rf. morbidly obese patient on breathing treatment and non mobile EXAM MEASUREMENTS: Right Kidney: 9.1 x 4.5 x 6.0 cm Left Kidney: unable to see due to large body habitus and bowel gas cm Limited exam Right Kidney: No hydronephrosis or masses seen and the kidneys poorly defined. Left Kidney: unable to assess due to reasons stated above Bladder: pt has herring cath but unable to visualize Exam is limited. IMPRESSION: Poor visualization of the right kidney likely due to patient's body habitus, no obvious hydronephrosi s. Limited exam, nonvisualization left kidney.
[2018-09-30] MEDS: DAPTOmycin 500 MG in SODIUM CHLORIDE 0.9% 50 ML IVPB SCH (11:18)
[2018-09-30 12:08] LABS: Glucose,Whole Blood 128 mg/dL (75-99)
[2018-09-30 14:01] VITALS: BMI 73.0
[2018-09-30 14:45] VITALS: BP 119/61; TEMP 97.2
--- NOTE | 2018-09-30 14:46 | P.DS ---
Providers Date of admission: 09/18/18 18:05 Attending physician: Harmeet Connors Consults: 09/18/18 18:06 Consult Physician Routine Consulting Provider: Kirit Bartlett Consult Reason/Comments: dyspnea, copd exacerbation Do you want consulting provider notified?: Already Contacted Consult Physician Routine Consulting Provider: Aleks Shepherd Consult Reason/Comments: right lower extremity wound Do you want consulting provider notified?: Yes 09/19/18 14:48 Consult Physician Routine Consulting Provider: Liz Anderson Consult Reason/Comments: chf Do you want consulting provider notified?: Yes 09/27/18 08:06 Consult Physician Routine Consulting Provider: Radha South Consult Reason/Comments: PICC line placement Do you want consulting provider notified?: Yes Primary care physician: Екатерина Patel MD Hospital Course: Discharge diagnoses cute on chronic hypoxic and hypercapnic respiratory failure secondary to morbid obesity with obesity/hypoventilation syndrome, obstructive sleep apnea, restrictive lung disease. acute on chronic diastolic CHF cellulitis of the lower extremity with mrsa and psudomonas hypertension a fib on eliquis UTI with psudomonas and VRE Hospital course: this is a pleasant 68 yo F wtih pmh of asthma/copd, a fib on eliquis, diastolic CHF, GERD, GI Bleed, hypertension who presents with dyepsnea, not relieved by BiPAP at home, she was recently visited ED for lower extremity rash. pt was admitted to ICU for acute on chronic hypoxic resp failure with some elements of fluid overload seen on cxr. pt has positive urine culture for enterococcus and gram negative bacilli. and wound culture that is positive for MRSA and pseudomonas. had mild leukocytosis on admission was resolved to 8.2K today. creatinine 1.5 and her lasix was switched to oral pills. sugar is controlled. Patient is been followed by many consult is according pulmonary, nephrology, cardiology, infectious disease. Patient was cleared for discharge by all consultants. Pulmonary team evaluated the patient for breathing problems, hypoxia and hypercapnia. Over on discharge her saturation is 95% on 5 L O2 of nasal cannula. And using the BiPAP 16/5 and 45% FiO2 during the night and throughout the day when napping. Of note patient is missing using her BiPAP she might become drowsy, family are aware about this. Patient's back to her baseline, with no chest pain, no dyspnea. No fever. No change in urine or bowel habits. Infection was controlled but she needs extended course of antibiotics as per ID. PICC line Is in place and patient she 'll be discharged on daptomycin and Zosyn. Abdomen discussion with the daughters Ms. Galo at [phone]. With recommendation for patient: 4 rehab/ECF for placement and senior living. The daughters rejected that and preferred her to go home with home care. She tolerated they were taking care of her for about one year and a half, and patient hasn't on a problem when she was in rehab and ECF before like infection or C. diff among others and that is why she wants her to go back home telling me that she has a visiting physician and visiting nurse Problems and management plan was discussed with the patient's and her daughter Clover upon her request, they verbalized understanding and acceptance Patient was found stable and can be discharged home however she needs follow-up as an outpatient physical exam Gen.: Patient alert awake and oriented X 3, NOT IN DISTRESS. Morbidly obese CVS: s1-s2, RRR, no murmur CHEST:bilateral CTA, no wheezing or crepitation Abdomen: Soft, no tenderness, no distention, positive bowel sounds Extremities: No leg edema or induration. Cellulitis of the right lower extremity, improving. She has emmy band Time spent more than 35 minutes Plan - Discharge Summary Discharge Rx Participant: No New Discharge Prescriptions: New DAPTOmycin [Cubicin] 500 mg IVPB Q24H #7 vial Piperacillin-Tazobactam [Zosyn] 3.375 gm IVPB Q8HR #21 vial No Action Apixaban [Eliquis] 5 mg PO BID #60 tab Budesonide-Formot 160-4.5 Mcg [Symbicort 160-4.5 Mcg Inhaler] 2 puff INHALATION RT-BID Diltiazem HCl 90 mg PO BID Spironolactone [Aldactone] 25 mg PO DAILY Furosemide [Lasix] 80 mg PO QAM Metoprolol Tartrate [Lopressor] 100 mg PO BID Cephalexin [Keflex] 500 mg PO Q6HR 5 Days #20 cap Furosemide [Lasix] 40 mg PO HS Discharge Medication List Budesonide-Formot 160-4.5 Mcg [Symbicort 160-4.5 Mcg Inhaler] 2 puff INHALATION RT-BID 05/31/18 [History] Diltiazem HCl 90 mg PO BID 05/31/18 [History] Metoprolol Tartrate [Lopressor] 100 mg PO BID 08/25/18 [History] Acetaminophen Tab [Tylenol] 650 mg PO Q6HR PRN tab 09/30/18 [Rx] Albuterol Inhaler [Ventolin Hfa Inhaler] 1 - 2 puff INHALATION RT-Q6H PRN #1 inhaler 09/30/18 [Rx] Apixaban [Eliquis] 5 mg PO BID #60 tab 09/30/18 [Rx] DAPTOmycin [Cubicin] 500 mg IVPB Q24H #7 vial 09/30/18 [Rx] Furosemide [Lasix] 40 mg PO BID@0900,1600 #60 tab 09/30/18 [Rx] Pantoprazole [Protonix] 40 mg PO AC-BRKFST #30 tablet. 09/30/18 [Rx] Piperacillin-Tazobactam [Zosyn] 3.375 gm IVPB Q8HR #21 vial 09/30/18 [Rx] SILVER sulfADIAZINE Cream [Silvadene 1% Cream] 1 applic TOPICAL BID #1 applic [Rx] acetaZOLAMIDE [Diamox] 500 mg PO DAILY #30 tab 09/30/18 [Rx] Follow up Appointment(s)/Referral(s): Екатерина Patel MD [Primary Care Provider] - 1-2 days Aleks Shepherd MD [STAFF PHYSICIAN] - [facility] [NON-STAFF] - Ambulatory/Diagnostic Orders: Basic Metabolic Panel [LAB.AMB] Location: None Selected Complete Blood Count w/diff [LAB.AMB] Location: None Selected
[2018-09-30 15:36] VITALS: PULSE 92
[2018-09-30] MEDS ORDERED: DILTIAZEM ORAL 60 MG TAB PO SCH (16:00)
[2018-09-30] MEDS ORDERED: FUROSEMIDE 40 MG TAB PO SCH (16:00)
--- NOTE | 2018-09-30 20:25 | PN ---
PROGRESS NOTE Patient is seen this morning for followup for acute kidney injury on top of chronic kidney disease. Currently, patient is being diuresed. There are plans for possible discharge today. Serum creatinine has increased to 1.5 and the diuretics were just changed to p.o. At this time, patient is stable for discharge from Nephrology standpoint. PHYSICAL EXAMINATION: This morning blood pressure was 106/55, heart rate of 90 per minute. Patient was afebrile. Examination of the heart S1, S2. Examination of lungs bilateral breath sounds are heard. Abdomen is soft, nontender. Morbidly obese. Examination of lower extremities, chronic skin changes, chronic edema bilaterally. COORDINATOR HOTELS exam is grossly intact. LAB: Show sodium 139, potassium 3.4, BUN 38, serum creatinine 1.56, hemoglobin 10.7 g/dL. ASSESSMENT: 1. Acute kidney injury associated with recent diuresis and some degree of hypoperfusion. Currently nonoliguric with good urine output. The patient had an ultrasound this morning which was unremarkable. The left kidney was not visualized. The patient can be discharged on p.o. Lasix with repeat labs to be done in about 4-5 days time. 2. Metabolic alkalosis secondary to diuresis, status post Diamox. 3. Urinary tract infection with VRE and Pseudomonas, status post antibiotics. 4. Right leg wound with wound culture growing Staph aureus and Pseudomonas. 5. Volume overload, being diuresed, currently improved. PLAN: Okay for discharge on p.o. Lasix. Repeat labs as outpatient in about 3-4 days time. MMODL / IJN: [id number] /
== END 2018-09-30 16:58 | disposition home health service (06) | DRG 205 ==
LOC: EC 15:55 → 3SCARD 18:05 → 2SICU 09-20 09:41 → 4MS4W 09-28 13:20
PROVIDERS: ADMIT Internal Medicine; ATTEND Internal Medicine
PROC: 5A09557 Assistance with Respiratory Ventilation, Greater than 96 Consecutive Hours, Continuous Positive Airway Pressure (ICD-10-PCS; principal; 2018-09-18)
PROC: 02HV33Z Insertion of Infusion Device into Superior Vena Cava, Percutaneous Approach (ICD-10-PCS; 2018-09-18)
DX: E66.2 Morbid (severe) obesity with alveolar hypoventilation (principal); I50.33 Acute on chronic diastolic (congestive) heart failure; J96.21 Acute and chronic respiratory failure with hypoxia; J96.22 Acute and chronic respiratory failure with hypercapnia; N17.0 Acute kidney failure with tubular necrosis; I13.0 Hypertensive heart and chronic kidney disease with heart failure and stage 1 through stage 4 chronic kidney disease, or unspecified chronic kidney disease; Z68.45 Body mass index [BMI] 70 or greater, adult; L03.115 Cellulitis of right lower limb; E87.4 Mixed disorder of acid-base balance; J44.1 Chronic obstructive pulmonary disease with (acute) exacerbation; L03.116 Cellulitis of left lower limb; N39.0 Urinary tract infection, site not specified; I48.2 Chronic atrial fibrillation; I27.20 Pulmonary hypertension, unspecified; B96.5 Pseudomonas (aeruginosa) (mallei) (pseudomallei) as the cause of diseases classified elsewhere; B95.2 Enterococcus as the cause of diseases classified elsewhere; E87.5 Hyperkalemia; H91.91 Unspecified hearing loss, right ear; L89.322 Pressure ulcer of left buttock, stage 2; K21.9 Gastro-esophageal reflux disease without esophagitis; N18.3 Chronic kidney disease, stage 3 (moderate); B95.62 Methicillin resistant Staphylococcus aureus infection as the cause of diseases classified elsewhere; I87.8 Other specified disorders of veins; Z16.21 Resistance to vancomycin; T50.2X5A Adverse effect of carbonic-anhydrase inhibitors, benzothiadiazides and other diuretics, initial encounter; Z79.01 Long term (current) use of anticoagulants; Z79.51 Long term (current) use of inhaled steroids; Z79.899 Other long term (current) drug therapy; Z86.19 Personal history of other infectious and parasitic diseases; Z86.14 Personal history of Methicillin resistant Staphylococcus aureus infection; Z87.891 Personal history of nicotine dependence; Z82.49 Family history of ischemic heart disease and other diseases of the circulatory system; Z83.3 Family history of diabetes mellitus; Z84.1 Family history of disorders of kidney and ureter; Z87.11 Personal history of peptic ulcer disease; Z74.01 Bed confinement status; Z87.01 Personal history of pneumonia (recurrent); Z87.440 Personal history of urinary (tract) infections; Z90.49 Acquired absence of other specified parts of digestive tract; Z99.3 Dependence on wheelchair; Z99.81 Dependence on supplemental oxygen
CPT/HCPCS: 36415; 36569; 36600; 71045; 76770; 76937; 80048; 80053; 82550; 82553; 82803; 82805; 83036; 83735; 83880; 84100; 84132; 84484; 85025; 85027; 85610; 85730; 87040; 87070; 87077; 87086; 87186; 87205; 93005; 94640; 94644; 94660; 96365; 96374; 99285

== ENCOUNTER 2018-10-14 18:26 | Inpatient (IN) | payer MEDICARE, MEDICAID ==
[2018-10-14] MEDS ORDERED: IPRATROPIUM-ALBUTEROL 3 ML NEB INHALATION STA (19:00)
--- NOTE | 2018-10-14 19:12 | ED ---
General Adult HPI - General Chief complaint: Shortness of Breath Stated complaint: Copd Time Seen by Provider: 10/14/18 18:29 Source: patient, family, EMS, RN notes reviewed Mode of arrival: EMS Limitations: physical limitation - History of Present Illness Initial comments: Patient is a pleasant 68-year-old female presenting to the emergency Department with complaints of difficulty in breathing and fatigued. Symptoms have progressed over the past several days. Patient was in the hospital not long ago. Patient does have history of CO2 retention and CHF and COPD. There has been some mild confusion noticed by the family. Patient has cough with occasional clear sputum. No fevers. Patient is having diffuse swelling including her legs and abdomen consistent with previous CHF. Patient has some mild chest discomfort. - Related Data Home Medications Medication Instructions Recorded Confirmed Budesonide-Formot 160-4.5 Mcg 2 puff INHALATION RT-BID 05/31/18 10/14/18 [Symbicort 160-4.5 Mcg Inhaler] Diltiazem HCl 90 mg PO BID 05/31/18 10/14/18 Metoprolol Tartrate [Lopressor] 100 mg PO BID 08/25/18 10/14/18 Aspirin 81 mg PO DAILY 10/14/18 10/14/18 Fexofenadine HCl [Sarita Allergy] 180 mg PO DAILY PRN 10/14/18 10/14/18 Furosemide [Lasix] 40 - 80 mg PO DIRECTED 10/14/18 10/14/18 Ipratropium-Albuterol Nebulize 3 ml INHALATION RT-QID 10/14/18 10/14/18 [Duoneb 0.5 mg-3 mg/3 ml Soln] Lansoprazole 30 mg PO DAILY PRN 10/14/18 10/14/18 Multivitamins, Thera [Multivitamin 1 tab PO DAILY 10/14/18 10/14/18 (formulary)] Previous Rx's Medication Instructions Recorded Acetaminophen Tab [Tylenol] 650 mg PO Q6HR PRN tab 09/30/18 Albuterol Inhaler [Ventolin Hfa 1 - 2 puff INHALATION RT-Q6H PRN 09/30/18 Inhaler] #1 inhaler Apixaban [Eliquis] 5 mg PO BID #60 tab 09/30/18 Pantoprazole [Protonix] 40 mg PO AC-BRKFST #30 tablet. 09/30/18 SILVER sulfADIAZINE Cream 1 applic TOPICAL BID #1 applic 09/30/18 [Silvadene 1% Cream] acetaZOLAMIDE [Diamox] 500 mg PO DAILY #30 tab 09/30/18 Allergies Allergy/AdvReac Type Severity Reaction Status Date / Time No Known Allergies Allergy Verified 10/14/18 20:01 Review of Systems ROS Statement: Those systems with pertinent positive or pertinent negative responses have been documented in the HPI. ROS Other: All systems not noted in ROS Statement are negative. Constitutional: Denies: fever Eyes: Denies: eye pain ENT: Denies: ear pain Respiratory: Reports: cough, dyspnea Cardiovascular: Reports: chest pain Endocrine: Reports: fatigue Gastrointestinal: Denies: abdominal pain Genitourinary: Denies: dysuria Musculoskeletal: Denies: back pain Skin: Denies: rash Neurological: Denies: weakness Past Medical History Past Medical History: Atrial Fibrillation, Asthma, Heart Failure, COPD, GERD/ Reflux, GI Bleed, Hypertension, Pneumonia, Renal Disease Additional Past Medical History / Comment(s): Morbid obesity, chronic hypoxic respiratory failure, chronic hypercapnic respiratory failure, CHF with diastolic dysfunction, borderline pulmonary hypertension, obstructive sleep apnea, breast hypoventilation syndrome, chronic atrial fibrillation, chronic lower extremity edema, venous stasis, ulceration, chronic microcytic anemia, history of peptic ulcer disease, history of diverticulosis and previous history of diverticulitis, previous history of ventilator dependent respiratory failure requiring intubation 2017, previous history of E. coli urinary tract infection, previous history of C. 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 Past Psychological History: No Psychological Hx Reported Smoking Status: Former smoker Past Alcohol Use History: None Reported Past Drug Use History: None Reported - Past Family History Father Family Medical History: Eye Disorder, Osteoarthritis (OA) Additional Family Medical History / Comment(s): at age 92 from old age, had macular degeneration Mother Family Medical History: Coronary Artery Disease (CAD), Diabetes Mellitus, Hypertension, Renal Disease Additional Family Medical History / Comment(s): cabg, dialysis General Exam Limitations: physical limitation General appearance: alert, in no apparent distress, obese Head exam: Present: atraumatic Eye exam: Present: normal appearance ENT exam: Present: normal oropharynx Neck exam: Present: normal inspection Respiratory exam: Present: decreased breath sounds Cardiovascular Exam: Present: regular rate, irregular rhythm GI/Abdominal exam: Present: soft. Absent: tenderness Extremities exam: Present: pedal edema. Absent: calf tenderness Neurological exam: Present: alert, oriented X3. Absent: motor sensory deficit Psychiatric exam: Present: normal affect, normal mood Skin exam: Present: normal color Course Vital Signs 10/14/18 10/14/18 10/14/18 18:28 18:50 19:24 Temperature 97.1 F L Pulse Rate 85 90 24 L Respiratory 24 Rate Blood Pressure 118/77 O2 Sat by Pulse 92 L Oximetry 10/14/18 10/14/18 20:50 20:54 Temperature Pulse Rate 61 Respiratory 28 H Rate Blood Pressure 100/55 112/58 O2 Sat by Pulse 93 L Oximetry EKG Findings - EKG Comments: EKG Findings:: A. fib with a rate of 95. QRS 92. QT 338. QTC 424. Right axis. Low QRS voltage. Q waves in lead V1 and V2. Artifact is present. No acute ST change. PVC present. Medical Decision Making - Medical Decision Making Patient reevaluated and improved with BiPAP. Patient and family updated. Case was discussed in detail with Dr. Kwon, who will admit. They have previously admitted this patient. - Lab Data Result diagrams: 10/14/18 20:26 10/14/18 20:26 Lab Results 10/14/18 10/14/18 10/14/18 Range/Units 19:46 20:26 20:26 WBC 7.2 (3.8-10.6) k/uL RBC 4.24 (3.80-5.40) m/uL Hgb 10.8 L (11.4-16.0) gm/dL Hct 36.9 (34.0-46.0) % MCV 87.1 (80.0-100.0) fL MCH 25.6 (25.0-35.0) pg MCHC 29.4 L (31.0-37.0) g/dL RDW 20.7 H (11.5-15.5) % Plt Count 182 (150-450) k/uL Neutrophils % 65 % Lymphocytes % 21 % Monocytes % 6 % Eosinophils % 3 % Basophils % 0 % Neutrophils # 4.7 (1.3-7.7) k/uL Lymphocytes # 1.6 (1.0-4.8) k/uL Monocytes # 0.5 (0-1.0) k/uL Eosinophils # 0.2 (0-0.7) k/uL Basophils # 0.0 (0-0.2) k/uL Hypochromasia Marked Poikilocytosis Moderate Anisocytosis Moderate Microcytosis Slight PT 10.1 (9.0-12.0) sec INR 0.9 (<1.2) APTT 23.3 (22.0-30.0) sec Sample Site LEFT RADIAL ABG pH 7.32 L (7.35-7.45) ABG pCO2 68 H (35-45) mmHg ABG pO2 58 L* (83-108) mmHg ABG HCO3 35 H (21-25) mmol/L ABG Total CO2 37 H (19-24) mmol/L ABG O2 Saturation 89.6 L (94-97) % ABG Base Excess 8.6 mmol/L Eulogio Test Yes FiO2 36 % Sodium (137-145) mmol/L Potassium (3.5-5.1) mmol/L Chloride (98-107) mmol/L Carbon Dioxide (22-30) mmol/L Anion Gap mmol/L BUN (7-17) mg/dL Creatinine (0.52-1.04) mg/dL Est GFR (CKD-EPI)AfAm (>60 ml/min/1.73 sqM) Est GFR (CKD-EPI)NonAf (>60 ml/min/1.73 sqM) Glucose (74-99) mg/dL Calcium (8.4-10.2) mg/dL Total Bilirubin (0.2-1.3) mg/dL AST (14-36) U/L ALT (9-52) U/L Alkaline Phosphatase (38-126) U/L Total Creatine Kinase (30-135) U/L CK-MB (CK-2) (0.0-2.4) ng/mL CK-MB (CK-2) Rel Index Troponin I (0.000-0.034) ng/mL NT-Pro-B Natriuret Pep pg/mL Total Protein (6.3-8.2) g/dL Albumin (3.5-5.0) g/dL 10/14/18 10/14/18 10/14/18 Range/Units 20:26 20:26 20:26 WBC (3.8-10.6) k/uL RBC (3.80-5.40) m/uL Hgb (11.4-16.0) gm/dL Hct (34.0-46.0) % MCV (80.0-100.0) fL MCH (25.0-35.0) pg MCHC (31.0-37.0) g/dL RDW (11.5-15.5) % Plt Count (150-450) k/uL Neutrophils % % Lymphocytes % % Monocytes % % Eosinophils % % Basophils % % Neutrophils # (1.3-7.7) k/uL Lymphocytes # (1.0-4.8) k/uL Monocytes # (0-1.0) k/uL Eosinophils # (0-0.7) k/uL Basophils # (0-0.2) k/uL Hypochromasia Poikilocytosis Anisocytosis Microcytosis PT (9.0-12.0) sec INR (<1.2) APTT (22.0-30.0) sec Sample Site ABG pH (7.35-7.45) ABG pCO2 (35-45) mmHg ABG pO2 (83-108) mmHg ABG HCO3 (21-25) mmol/L ABG Total CO2 (19-24) mmol/L ABG O2 Saturation (94-97) % ABG Base Excess mmol/L Eulogio Test FiO2 % Sodium 139 (137-145) mmol/L Potassium 3.8 (3.5-5.1) mmol/L Chloride 98 (98-107) mmol/L Carbon Dioxide 34 H (22-30) mmol/L Anion Gap 7 mmol/L BUN 32 H (7-17) mg/dL Creatinine 1.27 H (0.52-1.04) mg/dL Est GFR (CKD-EPI)AfAm 50 (>60 ml/min/1.73 sqM) Est GFR (CKD-EPI)NonAf 44 (>60 ml/min/1.73 sqM) Glucose 110 H (74-99) mg/dL Calcium 9.9 (8.4-10.2) mg/dL Total Bilirubin 0.4 (0.2-1.3) mg/dL AST 30 (14-36) U/L ALT 23 (9-52) U/L Alkaline Phosphatase 82 (38-126) U/L Total Creatine Kinase 35 (30-135) U/L CK-MB (CK-2) 1.3 (0.0-2.4) ng/mL CK-MB (CK-2) Rel Index 3.7 Troponin I 0.025 (0.000-0.034) ng/mL NT-Pro-B Natriuret Pep 3940 pg/mL Total Protein 6.2 L (6.3-8.2) g/dL Albumin 3.1 L (3.5-5.0) g/dL - Radiology Data Radiology results: image reviewed (Chest x-ray shows cardiomegaly and CHF) Critical Care Time Critical Care Time: Yes Total Critical Care Time: 32 Disposition Clinical Impression: COPD (chronic obstructive pulmonary disease), Acute respiratory failure, CHF exacerbation Disposition: ADMITTED IP TO THIS HOSP Condition: Serious Is patient prescribed a controlled substance at d/c from ED?: No Referrals: Екатерина Patel MD [Primary Care Provider] - 1-2 days Decision Time: 22:01
[2018-10-14 19:51] LABS: ABG Base Excess 8.6 mmol/L; ABG HCO3 35 mmol/L (21-25); ABG Oxygen Saturation 89.6 % (94-97); ABG PCO2 68 mmHg (35-45); ABG PH 7.32 (7.35-7.45); ABG TCO2 37 mmol/L (19-24)
[2018-10-14 19:56] LABS: ABG PO2 58 mmHg (83-108)
--- NOTE | 2018-10-14 20:07 | XR ---
EXAMINATION TYPE: XR chest 2V DATE OF EXAM: 10/14/2018 COMPARISON: 09/30/2018 HISTORY: Lethargy TECHNIQUE: Frontal and lateral views of the chest are obtained. FINDINGS: Heart is enlarged. There is mild pulmonary congestion. Exam is limited due to patient size . There is no definite pleural effusion. There is some atelectasis at the lung bases. IMPRESSION: There is probably mild congestive heart failure. Mild atelectasis at the lung bases. No change compared to old exam. Limited exam.
[2018-10-14 20:49] LABS: INR 0.9 (<1.2); Partial Thromboplastin Time 23.3 sec (22.0-30.0); Prothrombin Time 10.1 sec (9.0-12.0)
[2018-10-14 20:52] LABS: Albumin 3.1 g/dL (3.5-5.0); Calcium 9.9 mg/dL (8.4-10.2); Potassium 3.8 mmol/L (3.5-5.1); Total Bilirubin 0.4 mg/dL (0.2-1.3); Total Protein 6.2 g/dL (6.3-8.2)
[2018-10-14 21:02] LABS: Anisocytosis Moderate; Basophils % (A) 0 %; Eosinophils # (A) 0.2 k/uL (0-0.7); Eosinophils % (A) 3 %; HCT 36.9 % (34.0-46.0); HGB 10.8 gm/dL (11.4-16.0); Hypochromasia Marked; Lymphocytes # (A) 1.6 k/uL (1.0-4.8); Lymphocytes % (A) 21 %; MCH 25.6 pg (25.0-35.0); MCHC 29.4 g/dL (31.0-37.0); MCV 87.1 fL (80.0-100.0); Mean Platelet Volume 8.8; Microcytosis Slight; Monocytes # (A) 0.5 k/uL (0-1.0); Monocytes % (A) 6 %; Neutrophils # (A) 4.7 k/uL (1.3-7.7); Neutrophils % (A) 65 %; Platelet Count 182 k/uL (150-450); Poikilocytosis Moderate; RBC 4.24 m/uL (3.80-5.40); RDW 20.7 % (11.5-15.5); WBC 7.2 k/uL (3.8-10.6)
[2018-10-14 21:03] LABS: Creatine Kinase MB 1.3 ng/mL (0.0-2.4); Troponin I 0.025 ng/mL (0.000-0.034)
[2018-10-14] MEDS ORDERED: IPRATROPIUM-ALBUTEROL 3 ML NEB INHALATION PRN (22:00)
[2018-10-14] MEDS ORDERED: methylPREDNISolone SOD SUCCI 125 MG/2 ML VIAL IV STA (22:02)
[2018-10-14] MEDS ORDERED: ASPIRIN 325 MG TAB PO STA (22:02)
[2018-10-15] MEDS: NITROGLYCERIN OINT 1 INCH/GM PACKET TOPICAL SCH ×3 (00:01→16:24)
[2018-10-15] MEDS ORDERED: LORazepam 2 MG/ML INJ IV PRN (03:10)
[2018-10-15 04:02] LABS: Creatine Kinase MB 1.1 ng/mL (0.0-2.4); Troponin I 0.026 ng/mL (0.000-0.034)
[2018-10-15] MEDS: methylPREDNISolone SOD SUCCI 125 MG/2 ML VIAL IV SCH ×3 (05:09→11:59)
[2018-10-15] MEDS: FUROSEMIDE 10 MG/ML 4 ML VIAL IV SCH ×4 (05:10→23:25)
[2018-10-15] MEDS: ASPIRIN 325 MG TAB PO SCH (07:49)
[2018-10-15] MEDS: IPRATROPIUM-ALBUTEROL 3 ML NEB INHALATION SCH ×4 (07:56→21:02)
[2018-10-15 08:25] LABS: Creatine Kinase MB 0.9 ng/mL (0.0-2.4); Troponin I 0.018 ng/mL (0.000-0.034)
[2018-10-15] MEDS ORDERED: PANTOPRAZOLE 40 MG TABLET PO PRN (11:28)
[2018-10-15] MEDS ORDERED: LORATADINE 10 MG TAB PO PRN (11:28)
[2018-10-15] MEDS: APIXABAN 5 MG TAB PO SCH ×2 (12:10→19:59)
[2018-10-15] MEDS: acetaZOLAMIDE 250 MG TAB PO SCH (12:10)
[2018-10-15] MEDS: DILTIAZEM ORAL 30 MG TAB PO SCH ×2 (12:11→19:59)
[2018-10-15] MEDS: PANTOPRAZOLE 40 MG TABLET PO SCH (12:12)
[2018-10-15] MEDS: METOPROLOL TARTRATE 50 MG TAB PO SCH ×2 (12:12→19:59)
[2018-10-15] MEDS: MULTIVITAMINS, THERA 1 EACH TAB PO SCH (12:12)
[2018-10-15 12:42] VITALS: BMI 49.9
--- NOTE | 2018-10-15 13:59 | P.CRDCN ---
History of Present Illness History of present illness: This is Dr. Child dictating a consult on this patient The patient was interviewed and examined by me IMPRESSION / ASSESSMENT: Morbid obesity Somnolence Increasing shortness of breath and fatigue progressive Diastolic heart failure with preserved LV systolic function the past Hypertension Atrial fibrillation, persistent Acute disease/that chronic kidney disease PLAN: Rate controlled atrial fibrillation Blood pressure control HPI Patient presented with shortness of breath and breathing difficulty ROS: No fever chills or rigors, no cough, phlegm or expectoration, no nausea, vomiting or diarrhea, no hematuria, dysuria, no musculoskeletal complaints, no strokes or seizures, no skin lesions. EXAMINATION Unarousable somnolent this morning Short of breath at rest Reduced breath sounds bilaterally Heart sounds are distant Morbid obesity Pulse rate in the 80s Blood pressure 131/77 mmHg REVIEW OF LABS, ECG Hemoglobin and 0.8 Sodium 139 potassium 3.8 BUN 32 creatinine 1.27 Normal troponins 3 Past Medical History Past Medical History: Atrial Fibrillation, Asthma, Heart Failure, COPD, GERD/ Reflux, GI Bleed, Hypertension, Pneumonia, Renal Disease Additional Past Medical History / Comment(s): Morbid obesity, chronic hypoxic respiratory failure, chronic hypercapnic respiratory failure, CHF with diastolic dysfunction, borderline pulmonary hypertension, obstructive sleep apnea, breast hypoventilation syndrome, chronic atrial fibrillation, chronic lower extremity edema, venous stasis, ulceration, chronic microcytic anemia, history of peptic ulcer disease, history of diverticulosis and previous history of diverticulitis, previous history of ventilator dependent respiratory failure requiring intubation 2017, previous history of E. coli urinary tract infection, previous history of C. 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 has hospital bed, shower chair, manpreet lift , w/c, walker. Smoked 1 pack per day and quit smoking in 2013 Smoking Status: Former smoker Past Alcohol Use History: None Reported Additional Past Alcohol Use History / Comment(s): started smoking in 1967 used to smoke 1 ppd, quit -2013 Past Drug Use History: None Reported - Past Family History Father Family Medical History: Eye Disorder, Osteoarthritis (OA) Additional Family Medical History / Comment(s): at age 92 from old age, had macular degeneration Mother Family Medical History: Coronary Artery Disease (CAD), Diabetes Mellitus, Hypertension, Renal Disease Additional Family Medical History / Comment(s): cabg, dialysis Medications and Allergies Home Medications Medication Instructions Recorded Confirmed Type Budesonide-Formot 160-4.5 Mcg 2 puff INHALATION RT-BID 05/31/18 10/14/18 History [Symbicort 160-4.5 Mcg Inhaler] Diltiazem HCl 90 mg PO BID 05/31/18 10/14/18 History Metoprolol Tartrate [Lopressor] 100 mg PO BID 08/25/18 10/14/18 History Acetaminophen Tab [Tylenol] 650 mg PO Q6HR PRN tab 09/30/18 10/14/18 Rx Albuterol Inhaler [Ventolin Hfa 1 - 2 puff INHALATION RT-Q6H PRN 09/30/18 Rx Inhaler] #1 inhaler Apixaban [Eliquis] 5 mg PO BID #60 tab 09/30/18 10/14/18 Rx Pantoprazole [Protonix] 40 mg PO AC-BRKFST #30 tablet.dr 09/30/18 10/14/18 Rx SILVER sulfADIAZINE Cream 1 applic TOPICAL BID #1 applic 09/30/18 10/14/18 Rx [Silvadene 1% Cream] acetaZOLAMIDE [Diamox] 500 mg PO DAILY #30 tab 09/30/18 10/14/18 Rx Aspirin 81 mg PO DAILY 10/14/18 10/14/18 History Fexofenadine HCl [Sarita Allergy] 180 mg PO DAILY PRN 10/14/18 10/14/18 History Furosemide [Lasix] 40 - 80 mg PO DIRECTED 10/14/18 10/14/18 History Ipratropium-Albuterol Nebulize 3 ml INHALATION RT-QID 10/14/18 10/14/18 History [Duoneb 0.5 mg-3 mg/3 ml Soln] Lansoprazole 30 mg PO DAILY PRN 10/14/18 10/14/18 History Multivitamins, Thera [Multivitamin 1 tab PO DAILY 10/14/18 10/14/18 History (formulary)] Allergies Allergy/AdvReac Type Severity Reaction Status Date / Time No Known Allergies Allergy Verified 10/14/18 20:01 Physical Exam Vitals: Vital Signs Temp Pulse Pulse Resp BP BP Pulse Ox 10/15/18 12:01 80 10/15/18 12:00 103 H 21 131/77 93 L 10/15/18 11:48 80 10/15/18 08:18 88 10/15/18 08:04 98 F 85 20 117/70 94 L 10/15/18 07:56 84 10/15/18 03:32 98.6 F 116 H 31 H 114/68 88 L 10/15/18 00:00 97.3 F L 88 30 H 109/55 93 L 10/14/18 22:26 60 28 H 116/71 93 L 10/14/18 20:54 112/58 10/14/18 20:50 61 28 H 100/55 93 L 10/14/18 19:24 24 L 10/14/18 18:50 90 10/14/18 18:28 97.1 F L 85 24 118/77 92 L Intake and Output 10/14/18 10/15/18 10/15/18 22:59 06:59 14:59 Intake Total 50 582 Output Total 1000 Balance 50 -418 Intake: IV 50 0.9 NS 50 Oral 582 Output: Urine 1000 Other: Voiding Method Diaper Diaper # Bowel Movements 1 1 Weight 176.901 kg 132 kg 132 kg Results 10/14/18 20:26 10/14/18 20:26 Cardiac Enzymes 10/14/18 10/14/18 10/15/18 Range/Units 20:26 20:26 02:36 AST 30 (14-36) U/L CK-MB (CK-2) 1.3 1.1 (0.0-2.4) ng/mL Troponin I 0.025 0.026 (0.000-0.034) ng/mL 12/29/18 Range/Units 07:25 AST (14-36) U/L CK-MB (CK-2) 0.9 (0.0-2.4) ng/mL Troponin I 0.018 (0.000-0.034) ng/mL Coagulation 10/14/18 Range/Units 20:26 PT 10.1 (9.0-12.0) sec APTT 23.3 (22.0-30.0) sec CBC 10/14/18 Range/Units 20:26 WBC 7.2 (3.8-10.6) k/uL RBC 4.24 (3.80-5.40) m/uL Hgb 10.8 L (11.4-16.0) gm/dL Hct 36.9 (34.0-46.0) % Plt Count 182 (150-450) k/uL Comprehensive Metabolic Panel 10/14/18 Range/Units 20:26 Sodium 139 (137-145) mmol/L Potassium 3.8 (3.5-5.1) mmol/L Chloride 98 (98-107) mmol/L Carbon Dioxide 34 H (22-30) mmol/L BUN 32 H (7-17) mg/dL Creatinine 1.27 H (0.52-1.04) mg/dL Glucose 110 H (74-99) mg/dL Calcium 9.9 (8.4-10.2) mg/dL AST 30 (14-36) U/L ALT 23 (9-52) U/L Alkaline Phosphatase 82 (38-126) U/L Total Protein 6.2 L (6.3-8.2) g/dL Albumin 3.1 L (3.5-5.0) g/dL Current Medications Generic Name Dose Route Start Last Admin Trade Name Freq PRN Reason Stop Dose Admin Acetaminophen 650 mg 10/15/18 11:28 Tylenol Tab PO Q6HR PRN Fever and/ or MILD Pain Acetazolamide 500 mg 10/15/18 11:30 10/15/18 12:10 Diamox PO 500 mg DAILY BARBER Administration Albuterol/Ipratropium 3 ml 10/15/18 08:00 10/15/18 11:48 Duoneb 0.5 Mg-3 Mg/3 Ml Soln INHALATION 3 ml RT-QID BARBER Administration Albuterol/Ipratropium 3 ml 10/14/18 22:00 Duoneb 0.5 Mg-3 Mg/3 Ml Soln INHALATION RT-Q4H PRN Shortness Of Breath Or Wheezing Apixaban 5 mg 10/15/18 11:30 10/15/18 12:10 Eliquis PO 5 mg BID BARBER Administration Aspirin 325 mg 10/15/18 09:00 10/15/18 07:49 Aspirin PO 325 mg DAILY BARBER Administration Budesonide/Formoterol Fumarate 2 puff 10/15/18 20:00 Symbicort 160-4.5 Mcg Inhaler INHALATION RT-BID BARBER Diltiazem HCl 90 mg 10/15/18 11:30 10/15/18 12:11 Cardizem Oral PO 90 mg BID BARBER Administration Furosemide 40 mg 10/14/18 22:00 10/15/18 05:10 Lasix IV 40 mg Q8H BARBER Administration Loratadine 10 mg 10/15/18 11:28 10/15/18 12:10 Claritin PO 10 mg DAILY PRN Administration Allergy Symptoms Lorazepam 0.5 mg 10/15/18 03:10 10/15/18 03:17 Ativan IV 0.5 mg ONCE PRN Administration Anxiety Metoprolol Tartrate 100 mg 10/15/18 11:30 10/15/18 12:12 Lopressor PO 100 mg BID BARBER Administration Multivitamins 1 each 10/15/18 12:00 10/15/18 12:12 Theragran PO 1 each 1200 BARBER Administration Pantoprazole Sodium 40 mg 10/15/18 11:28 10/15/18 12:11 Protonix PO 40 mg DAILY PRN Administration Heartburn Pantoprazole Sodium 40 mg 10/15/18 11:30 10/15/18 12:12 Protonix PO Not Given AC-BRKFST [facility] Silver Sulfadiazine 1 applic 10/15/18 12:00 10/15/18 13:44 Silvadene Cream TOPICAL Not Given BID BARBER Intake and Output 10/14/18 10/15/18 10/15/18 22:59 06:59 14:59 Intake Total 50 582 Output Total 1000 Balance 50 -418 Intake: IV 50 0.9 NS 50 Oral 582 Output: Urine 1000 Other: Voiding Method Diaper Diaper # Bowel Movements 1 1 Weight 176.901 kg 132 kg 132 kg Patient Weight 12/30/18 06:59 Weight 132 kg 10/14/18 20:26 10/14/18 20:26
--- NOTE | 2018-10-15 14:22 | CONS ---
CONSULTATION DATE OF SERVICE: 10/15/2018. HISTORY: This is a 68-year-old female who presents to the emergency department complaining of shortness of breath. The patient has had at least 8 to 9 admissions this past year for similar situations of being short of breath. The patient apparently was also found to be mildly hypoxemic. Her chest x-ray showed evidence of fluid overload. She apparently gained a lot of weight. She came in complaining of inability to lay flat, increasing abdominal girth, fluid retention in the abdominal wall, and lower extremity edema. The patient does use a BiPAP at home. The patient has a history of chronic hypoxemic and hypercapnic respiratory failure. She has a number of medical problems including Pickwickian syndrome, restrictive lung disease from morbid obesity, underlying COPD. In addition, she has a history of chronic diastolic heart failure, chronic atrial fibrillation, hypertension, chronic kidney disease, anemia, GERD, history of tobacco use, and general medical debility with poor performance status. Again, the chest x-ray shows evidence of cardiomegaly with bilateral pleural effusions and cephalization. I believe her current admission likely is more about fluid overload than her COPD acting up. Oftentimes, she has a combination of the two. She was seen in the emergency room, admitted with a diagnosis of acute respiratory failure from CHF exacerbation. HOME MEDICATIONS: Include Symbicort, diltiazem, Lopressor, aspirin, Sarita, Lasix, DuoNeb, proton pump inhibitor, vitamins, Tylenol, Eliquis, Protonix, Silvadene cream, and Diamox. ALLERGIES: Denied. MEDICAL HISTORY: Positive for obesity with restrictive lung disease, atrial fibrillation, COPD, chronic heart failure, gastroesophageal reflux disease. GI bleed, hypertension, pneumonia, chronic kidney disease, Pickwickian syndrome, sleep apnea syndrome, pulmonary hypertension, heart failure which is diastolic in nature, venostasis of the lower extremities, diverticular disease, peptic ulcer disease, previous history of ventilator- dependent respiratory failure back in 2018, and history of E coli urinary tract infection as well as the previous history of C difficile colitis. She has had infections with methicillin-resistant Staph aureus, multi-drug resistant organism, vancomycin-resistant enterococci, etc. 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 SOCIAL HISTORY: Positive for previous tobacco use. Does not smoke currently. Denies any alcohol or drug abuse. FAMILY HISTORY: Positive for DJD, macular degeneration, diabetes, hypertension, renal disease, CAD, and dialysis. REVIEW OF SYSTEMS: CONSTITUTIONAL: Fatigue and weakness. NEUROLOGIC: Negative. HEENT: Negative. CARDIOVASCULAR: Negative,. PULMONARY: Shortness of breath. GI/: Negative. RHEUMATOLOGIC: Negative. HEMATOLOGIC: Negative. ENDOCRINOLOGIC: Negative. DERMATOLOGIC: Negative. PHYSICAL EXAMINATION: Current vital signs are reviewed. Temperature is 98, heart rate 85, respiratory rate 20, blood pressure 117/70, mean 85, saturations on BiPAP at 16 and 5 and 45% are 94%. Appears mildly tachypneic and dyspneic. Difficult to get history from her because she is wearing her BiPAP. HEENT: Examination is grossly unremarkable. NECK: Supple. Full range of motion. No adenopathy or thyromegaly. NECK: Neck veins are flat. CARDIOVASCULAR: Examination reveals a regular rhythm and rate. Heart rate about 90 beats per minute. She is clearly in atrial fibrillation. S1, S2 normal. No heart murmur noted. Heart sounds are distant. LUNGS: Bibasilar crackles. A few scattered rhonchi. No wheezes. Breath sounds are diminished throughout. They are equal bilaterally. ABDOMEN: Obese. Bowel sounds are heard. EXTREMITIES: Significant edema. She has some chronic venostasis changes as well. SKIN: Skin without rash. NEUROLOGIC: Examination is brief but nonfocal. LABS: Reviewed. White count 7.2, hemoglobin 10.8, hematocrit 36.9, platelet count 182,000. PT/INR/PTT normal. Blood gases show a pO2 of 58, pCO2 of 68 and pH 7.32. Gases are consistent with hypoxemia and mild acute on chronic hypercapnic respiratory failure. The blood gases are done on 36% oxygen. Sodium, potassium and chloride normal, CO2 of 34, anion gap is 7, BUN and creatinine were 32 and 1.27. Her N-terminal proBNP was 2940. Troponins were 0.025, 0.026 and 0.018. Albumin 3.1. Chest x-ray is consistent with fluid overload and cardiomegaly. Medications are reviewed. She is on all her usual medications. She is also getting updrafts. She is getting Solu-Medrol. I do not believe she needs Solu-Medrol. I do not believe that COPD is her major issue. She is not on any antibiotics currently. I will resume her Symbicort. ASSESSMENT: 1. Shortness of breath, with increasing abdominal girth, orthopnea, lower extremity edema and fatigue, all consistent with acute congestive heart failure. 2. History of chronic obstructive pulmonary disease, not particularly active at this time. 3. Morbid obesity. 4. Restrictive lung disease secondary to obesity. 5. Pickwickian syndrome. 6. History of sleep apnea syndrome. 7. History of atrial fibrillation. 8. History of gastroesophageal reflux disease. 9. History of hypertension. 10.History of pneumonia. 11.Multiple medical problems and comorbidities. PLAN: Please see my orders. Will resume the Symbicort. Stop Solu-Medrol. I do not believe she needs antibiotics at this time. We will continue to follow as needed. No additional recommendations are made. Prognosis is poor. She has had 8 or 9 admissions this year alone. MMODL / IJN: [id number] /
[2018-10-15] MEDS ORDERED: HYDROcodone/APAP 5-325MG 1 EACH TAB PO PRN (15:29)
--- NOTE | 2018-10-15 17:43 | HP ---
HISTORY AND PHYSICAL DATE OF SERVICE: 10/15/2018 CHIEF COMPLAINT: Shortness of breath. HISTORY OF PRESENT ILLNESS: This 68-year-old woman with a past medical history of multiple medical problems including atrial fibrillation, asthma, CHF, COPD, GERD, GI bleed, hypertension, history of pneumonia, history of renal disease, being followed by Dr. Agee in the outpatient setting, is complaining of shortness of breath. The patient also complaining of some weight gain and some leg edema also. The chest x-ray showed features of CHF. Patient admitted for further evaluation and treatment. The patient was also given BiPAP. Patient also complained of some cough also. Cardiology and Pulmonology consultations underway. The patient is on IV diuretics at this time. Patient is extremely short of breath. The patient had history of CO2 retention also. There is no history of fever, rigors or chills. No history of headache, loss of consciousness, seizures. PAST MEDICAL HISTORY: History of atrial fibrillation, asthma, CAD, CHF, COPD, GERD, GI bleed, hypertension, pneumonia, morbid obesity. MEDICATIONS: Prior to admission include home medications are: 1. Silver sulfadiazine 1% cream 1 application b.i.d. 2. Lansoprazole 30 mg daily p.r.n. 3. Sarita 180 mg p.o. daily. 4. Ventolin HFA 1-2 puffs q.6h p.r.n. 5. Tylenol 650 q.6h p.r.n. 6. Protonix 40 mg at breakfast. 7. Diamox 500 mg daily. 8. Multivitamins. 9. Aspirin 81 mg. 10.DuoNeb q.i.d. 11.Lasix 40-80 mg p.r.n. 12.Symbicort 160/4.5 two puffs b.i.d. 13.Eliquis 5 mg p.o. b.i.d. 14.Lopressor 100 mg p.o. b.i.d. 15.Diltiazem 90 mg p.o. b.i.d. ALLERGIES: None. FAMILY HISTORY: History of DJD. SOCIAL HISTORY: Previous history of smoking. No history of alcohol intake. REVIEW OF SYSTEMS: ENT: Diminished vision. Diminished hearing. Cardiovascular: As mentioned earlier. RESPIRATORY: As mentioned earlier. GI no nausea or vomiting. : No dysuria. NERVOUS SYSTEM: No numbness or weakness. ALLERGY/IMMUNOLOGY: No asthma or hayfever. MUSCULOSKELETAL: As mentioned earlier. HEMATOLOGY/ONCOLOGY: No history of anemia. ENDOCRINE: No history of diabetes or hypothyroidism. CONSTITUTIONAL: As mentioned earlier. Dermatology: Negative. Rheumatology: Negative. Psychiatry: As mentioned earlier. PHYSICAL EXAMINATION: GENERAL: The patient is alert and oriented x3. VITAL SIGNS: Pulse is 103. Blood pressure 131/77, respiration 22, temperature is 93% on BiPAP. HEENT: Conjunctivae normal. Oral mucosa moist. NECK is obese. CARDIOVASCULAR: S1, S2 muffled. RESPIRATIONS: Breath sounds diminished in the bases. Bilateral scattered rhonchi and crackles. ABDOMEN: Soft, obese, nontender. LEGS: Bilateral leg edema. NERVOUS SYSTEM: Diffusely weak. SKIN: No ulcer, rash, or bleeding. JOINTS: No active deforming arthropathy. LABS: At this time shows WBC 7.2, hemoglobin 10.8. ABGs pH of 7.32, and PO2 was 58 and pCO2 68, and creatinine 1.27. ASSESSMENT: 1. Shortness of breath with acute hypoxic hypercarbic respiratory failure multifactorial with congestive heart failure acute exacerbation with some acute on chronic diastolic dysfunction and as well as chronic obstructive pulmonary disease acute exacerbation. 2. Morbid obesity with possible restrictive lung disease. 3. History of right lower leg cellulitis. 4. Increased creatinine with chronic kidney disease stage III. 5. History of asthma. 6. History of chronic obstructive pulmonary disease. 7. History of congestive heart failure. 8. History of atrial fibrillation. 9. Gastroesophageal reflux disease. 10.History of gastrointestinal bleed. 11.Hypertension. 12.History of pneumonia. 13.History of chronic hypoxic respiratory failure on home O2. 14.History of borderline pulmonary hypertension. 15.History of obstructive sleep apnea. 16.History of obesity hypoventilation syndrome. 17.History of chronic venous stasis edema. 18.History of peptic ulcer disease. 19.History of vent dependent respiratory failure in 2018. 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 21.Remote history of nicotine dependence. RECOMMENDATIONS AND DISCUSSION: This 68-year-old woman who presented with multiple complex medical issues, we will monitor the patient closely. Continue the current medications, management and symptomatic treatment. We will initiate IV Lasix. Monitor fluid and electrolytes closely. Cardiology consultation. Otherwise, I will optimize medication, bronchodilators, IV steroids has been stopped by Dr. Bartlett. We will continue to monitor. Prognosis guarded. See orders for details. Further recommendations to follow. Copy of dictation being forwarded to Dr. Agee, who is the primary physician. MMODL / IJN: [id number] / MTDD
[2018-10-15 17:55] LABS: Appearance,Urine Cloudy (Clear); Bacteria,Urine Occasional /hpf; Bilirubin,Urine Negative (Negative); Blood,Urine Trace (Negative); Color,Urine Yellow; Glucose,Urine (UA) Negative (Negative); Ketones,Urine Negative (Negative); Leukocyte Esterase,Urine Moderate (Negative); Nitrite,Urine Positive (Negative); PH, Urine 5.5 (5.0-8.0); Protein,Urine Negative (Negative); RBC,Urine 1 /hpf (0-5); Specific Gravity,Urine 1.009 (1.001-1.035); Squamous Epithelial Cell,Urine 1 /hpf (0-4); Urobilinogen,Urine <2.0 mg/dL (<2.0); WBC,Urine 1 /hpf (0-5)
[2018-10-15] MEDS: SYMBICORT 160-4.5 MCG INHALER INHALATION SCH (21:02)
[2018-10-16] MEDS: ALPRAZolam 0.25 MG TAB PO PRN ×2 (00:35→13:21)
[2018-10-16] MEDS: PANTOPRAZOLE 40 MG TABLET PO SCH (06:12)
[2018-10-16] MEDS: FUROSEMIDE 10 MG/ML 4 ML VIAL IV SCH ×3 (06:12→21:40)
[2018-10-16] MEDS: ACETAMINOPHEN TAB 325 MG TAB PO PRN (06:21)
[2018-10-16 06:29] LABS: Anisocytosis Moderate; Basophils % (A) 0 %; Eosinophils % (A) 0 %; HCT 35.9 % (34.0-46.0); HGB 10.1 gm/dL (11.4-16.0); Hypochromasia Marked; Lymphocytes # (A) 1.3 k/uL (1.0-4.8); Lymphocytes % (A) 12 %; MCH 24.8 pg (25.0-35.0); MCHC 28.2 g/dL (31.0-37.0); MCV 87.9 fL (80.0-100.0); Mean Platelet Volume 8.4; Monocytes # (A) 0.5 k/uL (0-1.0); Monocytes % (A) 5 %; Neutrophils # (A) 8.5 k/uL (1.3-7.7); Neutrophils % (A) 80 %; Platelet Count 234 k/uL (150-450); Poikilocytosis Moderate; RBC 4.08 m/uL (3.80-5.40); RDW 20.3 % (11.5-15.5); WBC 10.6 k/uL (3.8-10.6)
[2018-10-16 06:37] LABS: Potassium 3.6 mmol/L (3.5-5.1)
[2018-10-16] MEDS: IPRATROPIUM-ALBUTEROL 3 ML NEB INHALATION SCH ×4 (07:50→20:46)
[2018-10-16] MEDS: SYMBICORT 160-4.5 MCG INHALER INHALATION SCH ×2 (07:50→20:46)
[2018-10-16] MEDS: METOPROLOL TARTRATE 50 MG TAB PO SCH ×2 (08:51→21:39)
[2018-10-16] MEDS: MULTIVITAMINS, THERA 1 EACH TAB PO SCH (08:51)
[2018-10-16] MEDS: APIXABAN 5 MG TAB PO SCH ×2 (08:51→21:40)
[2018-10-16] MEDS: ASPIRIN 325 MG TAB PO SCH (08:51)
[2018-10-16] MEDS: acetaZOLAMIDE 250 MG TAB PO SCH (08:51)
[2018-10-16] MEDS: DILTIAZEM ORAL 30 MG TAB PO SCH ×2 (08:51→21:39)
--- NOTE | 2018-10-16 14:33 | PN ---
PROGRESS NOTE DATE OF SERVICE: 10/16/2018 This is a 68-year-old female well known to us. She came to the hospital with increasing shortness of breath, increasing abdominal girth, orthopnea, lower extremity edema and fatigue. Her diagnosis was that of acute congestive heart failure. She also has a history of COPD but we did not think it was active at this time. In addition, she has a history of morbid obesity, restrictive lung disease secondary to obesity, Pickwickian syndrome, sleep apnea syndrome, chronic atrial fibrillation, GERD, hypertension, pneumonia, as well as other medical problems and comorbidities. The Symbicort was resumed. The Solu-Medrol was stopped. We did not think she really would need antibiotics at this time. She seems a bit more comfortable today. Less short of breath. She is wearing her BiPAP device. Current vital signs are reviewed. Temperature heart rate 87, respiratory rate 22, blood pressure 131/58, mean 82, 4 L saturations 88%. Appears in no acute distress. Her saturations are perfectly okay between 88 and 92%. HEENT examination is grossly unremarkable. Neck is supple. Full range of motion. No adenopathy. Cardiovascular examination reveals distant heart sounds. S1, S2 normal. No S3, S4. No distinct murmur noted. Heart rate about mid 80s. Lungs reveal some bibasilar crackles. She does not take deep breaths. No wheezes are noted. No rhonchi. Abdomen is obese. Bowel sounds are heard. Extremities reveal some edema. Skin without rash. Neurologic examination is brief but nonfocal. LABORATORY DATA: Includes a white count of 10.6, hemoglobin 10.1, hematocrit 35.9, platelet count 234,000. Sodium, potassium and chloride normal. CO2 is 34. BUN and creatinine were 35 and 1.39. Her initial N terminal proBNP was 3940. Her urine suggests possible urinary tract infection. Microbiologic studies are negative thus far. Medications are reviewed. ASSESSMENT: 1. Shortness of breath, mostly consistent with acute CHF. 2. COPD, not particularly active at this time. 3. Morbid obesity. 4. Restrictive lung disease secondary to obesity. 5. Pickwickian syndrome. 6. Chronic hypoxemic respiratory failure, on BiPAP nocturnally. 7. History of sleep apnea syndrome. 8. History of chronic atrial fibrillation. 9. History of gastroesophageal reflux disease. 10.History of hypertension. 11.History of pneumonia. PLAN: 10/16/2018 The patient will continue on her current medications. The patient is on DuoNebs and Symbicort. I do not believe she needs steroids or antibiotics. She is getting diuretics. She will continue using the BiPAP intermittently. No additional recommendations are made. MMODL / IJN: [id number] /
--- NOTE | 2018-10-16 16:45 | PN ---
PROGRESS NOTE DATE OF SERVICE: 10/16/2018 DATE OF SERVICE: This 68-year-old woman who was admitted with shortness of breath. Mostly CHF acute exacerbation also had other elements of shortness of breath including COPD exacerbation as well as restrictive lung disease also. The patient is being closely monitored. The patient is on IV Lasix and as well as intensive bronchodilator treatment also. The patient being closely monitored at this time. PAST MEDICAL HISTORY: Reviewed. REVIEW OF SYSTEMS: CARDIOVASCULAR: As mentioned earlier. RESPIRATORY: As mentioned earlier. GI no nausea or vomiting. : As mentioned earlier. CENTRAL NERVOUS SYSTEM: No focal deficits. CURRENT MEDICATIONS: Reviewed and include: 1. Tylenol 650 q.6. 2. [place] 5 mg q.6h p.r.n. 3. Diamox 500 mg p.o. daily. 4. DuoNeb q.i.d. and p.r.n. 5. Xanax 0.5 t.i.d. 6. Eliquis 5 mg p.o. b.i.d. 7. Aspirin 320 mg daily. 8. Symbicort 160/4.5 two puffs b.i.d. 9. Cardizem 90 mg p.o. b.i.d. 10.Lasix 40 mg IV q.8h. 11.Claritin 10 mg p.o. daily. 12.Ativan 0.5 mg daily. 13.Melatonin 3 mg q.h.s. 14.Lopressor 100 mg p.o. b.i.d. 15.Multivitamins one p.o. daily. 16.Protonix 40 mg. PHYSICAL EXAM: Patient is alert, oriented x3. Pulse 87. Blood pressure 131/58, respiration 20, temperature 98 degrees, pulse ox 80 percent on 4 L. HEENT: Conjunctivae normal. Oral mucosa moist. Neck is no jugular venous distention. No carotid bruit. No lymph node enlargement. CARDIOVASCULAR SYSTEM: S1, S2 muffled. RESPIRATORY SYSTEM: Breath sounds diminished at the bases. Breathing efforts are markedly increased. Bilateral scattered rhonchi and crackles. ABDOMEN: Soft, obese, nontender. LEGS: No edema. No swelling. NERVOUS SYSTEM: Higher functions as mentioned earlier. Moves all four extremities. Lymphatics: No lymph nodes palpable in the neck, axillae or groin. SKIN: No ulcer, rash, no bleeding. LAB STUDIES: WBC 11.1, hemoglobin 10.1, sodium 141, potassium 3.6. ASSESSMENT: 1. Shortness of breath, mostly with congestive heart failure acute exacerbation with acute on chronic diastolic dysfunction with acute hypoxic hypercarbic respiratory failure and also chronic obstructive pulmonary disease acute exacerbation. 2. Morbid obesity with possible restrictive lung disease. 3. History of right lower leg cellulitis. 4. Increased creatinine with chronic kidney disease stage III. 5. History of asthma. 6. Chronic obstructive pulmonary disease. 7. History of congestive heart failure. 8. History of atrial fibrillation. 9. History of gastroesophageal reflux disease. 10.History of gastrointestinal bleed. 11.Hypertension. 12.History of pneumonia. 13.History of chronic hypoxic respiratory failure on home O2. 14.History of borderline pulmonary hypertension. 15.History of obstructive sleep apnea. 16.History of obesity hypoventilation syndrome. 17.History of chronic venous status edema. 18.History of peptic ulcer disease. History of vent dependent respiratory failure in 2018. 19.History of MRSA and as well as VRE and MDRO. 20.Remote history of nicotine dependence. RECOMMENDATIONS AND DISCUSSION: Recommend to continue current medications, management and symptomatic treatment. Continue with diuretics. Monitor fluid and electrolytes balance closely. Limit fluid intake to 1500 mL per 24 hours. Closely follow with Cardiology and pulmonology. Continue the rest of medications, bronchodilators. Prognosis extremely guarded because of multiple complex medical issues. Further recommendations to follow. TRISHA / PAMELA: [id number] / CHRISTIANA
[2018-10-17] MEDS: FUROSEMIDE 10 MG/ML 4 ML VIAL IV SCH ×3 (06:16→22:50)
[2018-10-17] MEDS: PANTOPRAZOLE 40 MG TABLET PO SCH (06:16)
[2018-10-17 06:20] LABS: Anisocytosis Moderate; Basophils % (A) 0 %; Eosinophils % (A) 0 %; HCT 38.2 % (34.0-46.0); HGB 11.2 gm/dL (11.4-16.0); Hypochromasia Marked; Lymphocytes # (A) 1.7 k/uL (1.0-4.8); Lymphocytes % (A) 16 %; MCH 25.9 pg (25.0-35.0); MCHC 29.3 g/dL (31.0-37.0); MCV 88.3 fL (80.0-100.0); Mean Platelet Volume 8.4; Monocytes # (A) 0.7 k/uL (0-1.0); Monocytes % (A) 7 %; Neutrophils # (A) 7.8 k/uL (1.3-7.7); Neutrophils % (A) 74 %; Platelet Count 220 k/uL (150-450); Poikilocytosis Moderate; RBC 4.32 m/uL (3.80-5.40); RDW 20.3 % (11.5-15.5); WBC 10.6 k/uL (3.8-10.6)
[2018-10-17 06:55] LABS: Calcium 9.9 mg/dL (8.4-10.2); Potassium 3.6 mmol/L (3.5-5.1)
[2018-10-17] MEDS: IPRATROPIUM-ALBUTEROL 3 ML NEB INHALATION SCH ×4 (07:43→20:45)
[2018-10-17] MEDS: SYMBICORT 160-4.5 MCG INHALER INHALATION SCH ×2 (07:54→20:45)
[2018-10-17] MEDS: DILTIAZEM ORAL 30 MG TAB PO SCH ×2 (08:39→20:14)
[2018-10-17] MEDS: MULTIVITAMINS, THERA 1 EACH TAB PO SCH (08:39)
[2018-10-17] MEDS: acetaZOLAMIDE 250 MG TAB PO SCH (08:39)
[2018-10-17] MEDS: ASPIRIN 325 MG TAB PO SCH (08:39)
[2018-10-17] MEDS: APIXABAN 5 MG TAB PO SCH ×2 (08:39→20:14)
[2018-10-17] MEDS: ALPRAZolam 0.25 MG TAB PO PRN ×2 (08:40→22:50)
[2018-10-17] MEDS: METOPROLOL TARTRATE 50 MG TAB PO SCH ×2 (08:42→20:15)
--- NOTE | 2018-10-17 14:11 | P.PN ---
Subjective Progress Note Date: 10/17/18 Principal diagnosis: Shortness of breath, related to acute diastolic CHF and COPD exacerbation This is a 68-year-old white female patient's that is well-known to our service from multiple previous hospitalizations for exacerbation of COPD, and chronic congestive heart failure with diastolic dysfunction, was admitted to the hospital on 10/06/2018 for increasing shortness of breath, increasing abdominal girth, orthopnea, lower extremity edema and fatigue. She has been diagnosed with acute exacerbation of congestive heart failure, with diastolic dysfunction. Patient has a history of morbid obesity, restrictive lung disease secondary to obesity, pickwickian syndrome, sleep apnea syndrome, chronic atrial fibrillation, GERD, hypertension. Patient was recently hospitalized in the beginning of September for acute cellulitis of the lower extremity with superficial ulceration, and acute exacerbation of CHF and COPD. This morning patient is seen in follow-up on selective care unit. She is lethargic, but arousable, she is on IV diuretics, nebulized bronchodilators. We placed her back on BiPAP. Objective - Vital Signs Vital signs: Vital Signs Temp 98.4 F 10/17/18 08:00 Pulse 80 10/17/18 12:10 Resp 22 10/17/18 12:10 BP 105/53 10/17/18 12:10 Pulse Ox 99 10/17/18 12:10 Intake & Output 10/16/18 10/17/18 10/17/18 18:59 06:59 18:59 Intake Total 462 360 Output Total 100 800 400 Balance 362 -800 -40 Weight 132 kg Intake: Oral 462 360 Output: Urine 100 800 400 Other: Voiding Method Incontinent Incontinent # Voids 1 1 # Bowel Movements 1 - Exam GENERAL EXAM: Lethargic, 68-year-old white female, comfortable in no apparent distress. HEAD: Normocephalic/atraumatic. EYES: Normal reaction of pupils, equal size. Conjunctiva pink, sclera white. NOSE: Clear with pink turbinates. THROAT: No erythema or exudates. NECK: No masses, no JVD, no thyroid enlargement, no adenopathy. CHEST: No chest wall deformity. Symmetrical expansion. A few scattered wheezes LUNGS: Equal air entry with no crackles, wheeze, rhonchi or dullness. CVS: Regular rate and rhythm, normal S1 and S2, no gallops, no murmurs, no rubs ABDOMEN: Soft, nontender. No hepatosplenomegaly, normal bowel sounds, no guarding or rigidity. EXTREMITIES: No clubbing, lower extremity edema, changes consistent with chronic venous stasis, right lower leg is wrapped, no cyanosis, 2+ pulses and upper and lower extremities. MUSCULOSKELETAL: Muscle strength and tone normal. SPINE: No scoliosis or deformity SKIN: No rashes CENTRAL NERVOUS SYSTEM: Somnolent -3. No focal deficits, tone is normal in all 4 extremities. - Labs CBC & Chem 7: 10/17/18 05:49 10/17/18 05:49 Labs: Abnormal Lab Results - Last 24 Hours (Table) 10/17/18 10/17/18 Range/Units 05:49 05:49 Hgb 11.2 L (11.4-16.0) gm/dL MCHC 29.3 L (31.0-37.0) g/dL RDW 20.3 H (11.5-15.5) % Neutrophils # 7.8 H (1.3-7.7) k/uL Carbon Dioxide 37 H (22-30) mmol/L BUN 42 H (7-17) mg/dL Creatinine 1.66 H (0.52-1.04) mg/dL Glucose 117 H (74-99) mg/dL Assessment and Plan Plan: Assessment: #1. Shortness of breath related to acute exacerbation of chronic congestive heart failure, with diastolic dysfunction #2. COPD exacerbation related to the above #3. Morbid obesity #4. Pickwickian syndrome #5. Chronic hypoxemic and hypercapnic respiratory failure BiPAP nocturnally #6. History of sleep apnea syndrome #7. Chronic atrial fibrillation #8. GERD #9. Hypertension #10. Right lower extremity cellulitis Plan: Continue current medical treatment, BiPAP support at night and as needed during the day. Patient has developed worsening of the renal function, we'll cut back to IV Lasix to twice daily. Topical treatment to the right lower extremity wound. Continue with nebulized bronchodilators. I performed a history & physical examination of the patient and discussed their management with my nurse practitioner, Maru Meyers. I reviewed the nurse practitioner's note and agree with the documented findings and plan of care. Lung sounds are positive for diffuse wheezes throughout the lung [place]unk[place]. The findings and the impression was discussed with the patient. I attest to the documentation by the nurse practitioner. Time with Patient: Less than 30
[2018-10-17] MEDS ORDERED: FUROSEMIDE 10 MG/ML 4 ML VIAL IV SCH (21:00)
[2018-10-18 06:48] LABS: Anisocytosis Moderate; HCT 37.3 % (34.0-46.0); HGB 10.4 gm/dL (11.4-16.0); Hypochromasia Marked; MCH 24.9 pg (25.0-35.0); MCHC 27.8 g/dL (31.0-37.0); MCV 89.8 fL (80.0-100.0); Platelet Count 175 k/uL (150-450); Poikilocytosis Moderate; RBC 4.16 m/uL (3.80-5.40); RDW 20.4 % (11.5-15.5); WBC 8.6 k/uL (3.8-10.6)
[2018-10-18] MEDS: PANTOPRAZOLE 40 MG TABLET PO SCH (06:51)
[2018-10-18 07:17] LABS: Calcium 9.5 mg/dL (8.4-10.2); Potassium 3.8 mmol/L (3.5-5.1)
[2018-10-18 07:43] LABS: Eosinophils # (M) 0.17 k/uL (0-0.7); Metamyelocytes # (M) 0.09 k/uL (0); Metamyelocytes % 1 %; Monocytes # (M) 0.34 k/uL (0-1.0); Neutrophils # (M) 4.99 k/uL (1.3-7.7); Neutrophils % (M) 58 %; Nucleated Red Blood Cells 0 /100 WBC (0-0); Polychromasia Present; Total Cells Counted 200; Toxic Granulation Present
[2018-10-18 07:44] LABS: Ovalocytes Present
[2018-10-18] MEDS: SYMBICORT 160-4.5 MCG INHALER INHALATION SCH ×2 (08:11→20:44)
[2018-10-18] MEDS: IPRATROPIUM-ALBUTEROL 3 ML NEB INHALATION SCH ×4 (08:11→20:45)
--- NOTE | 2018-10-18 09:09 | P.PN ---
Subjective Progress Note Date: 10/17/18 Progress note being dictated for Dr. Allred. Interval history: This is a 68-year-old female admitted with acute exacerbation CHF, acute hypoxic hypercarbic respiratory failure, COPD exacerbation, restrictive lung disease, and multiple other medical issues. Diuresing well on diuretics with 24-hour I&O reflecting a negative fluid balance, creatinine mildly elevated at 1.66. Maintained on fluid restrictions, nebulized bronchodilators with breathing slowly improving. BiPAP at bedside, currently off. Objective - Vital Signs Vital signs: Vital Signs Temp 98 F 10/17/18 16:00 Pulse 84 10/17/18 16:59 Resp 19 10/17/18 16:00 BP 116/61 10/17/18 16:00 Pulse Ox 91 L 10/17/18 16:50 Intake & Output 10/17/18 10/17/18 10/18/18 06:59 18:59 06:59 Intake Total 1080 Output Total 800 400 Balance -800 680 Weight 132 kg Intake: Oral 1080 Output: Urine 800 400 Other: Voiding Method Incontinent # Voids 1 - Exam PHYSICAL EXAM: VITAL SIGNS: As above GENERAL: Sitting up in bed, no acute distress. HEENT: Conjunctivae normal. eyes normal. Oral mucosa moist NECK: No JVD. No thyroid enlargement. No LNs CARDIOVASCULAR: S1, S2 muffled. No murmur RESPIRATION: Breath sounds diminished in the bases. Fine Scattered rhonchi, crackles, and expiratory wheezes. ABDOMEN: Soft, nontender . No guarding. no masses palpable. Bowel sounds heard. LEGS: No edema. no swelling. Right lower leg emmy wrapped. PSYCHIATRY: Alert and oriented -3, mood and affect normal. NERVOUS SYSTEM: Cranial N 2-12 grossly normal. Moves all 4 limbs. Diffuse weakness No focal deficits. Skin: no rash Joints: No active swelling. No inflammation. Lymphatic system. No LN neck axilla or groin. - Labs CBC & Chem 7: 10/18/18 06:22 10/18/18 06:22 Labs: Abnormal Lab Results - Last 24 Hours (Table) 10/17/18 10/17/18 Range/Units 05:49 05:49 Hgb 11.2 L (11.4-16.0) gm/dL MCHC 29.3 L (31.0-37.0) g/dL RDW 20.3 H (11.5-15.5) % Neutrophils # 7.8 H (1.3-7.7) k/uL Carbon Dioxide 37 H (22-30) mmol/L BUN 42 H (7-17) mg/dL Creatinine 1.66 H (0.52-1.04) mg/dL Glucose 117 H (74-99) mg/dL Assessment and Plan Assessment: -Shortness of breath, multifactorial, mostly acute on chronic CHF exacerbation, diastolic dysfunction, acute hypoxic hypercarbic respiratory failure, acute COPD exacerbation -Morbid obesity, BMI 50 with possible restrictive lung disease -Acute on chronic renal failure, stage III -History of right lower leg cellulitis -History of A. fib -Gastroesophageal reflux disease -Hypertension -Chronic hypoxic respiratory failure on home O2, BiPAP -History of sleep apnea -History of MRSA, VRE and MDRO Plan: Continue on current medication regime ,monitoring and symptomatic treatment. Maintained on decreased dose of lasix with close monitoring of renal function, creatinine trending up; repeat labs ordered for a.m. continue on nebulized bronchodilators, fluid restrictions. Follow closely with both pulmonary and cardiology. Further recommendations to follow. The impression and plan of care has been dictated as directed. : I performed a history and examination of this patient, discussed the same with the dictator. I agree with the dictator's note ,documented as a scribe. Any additional findings or plans will be noted.
[2018-10-18] MEDS: ASPIRIN 325 MG TAB PO SCH (09:56)
[2018-10-18] MEDS: DILTIAZEM ORAL 30 MG TAB PO SCH ×3 (09:56→20:19)
[2018-10-18] MEDS: acetaZOLAMIDE 250 MG TAB PO SCH (09:56)
[2018-10-18] MEDS: METOPROLOL TARTRATE 50 MG TAB PO SCH ×2 (09:56→20:14)
[2018-10-18] MEDS: FUROSEMIDE 10 MG/ML 4 ML VIAL IV SCH ×3 (09:57→23:13)
[2018-10-18] MEDS: APIXABAN 5 MG TAB PO SCH ×2 (09:57→20:14)
[2018-10-18] MEDS: ALPRAZolam 0.25 MG TAB PO PRN (09:57)
--- NOTE | 2018-10-18 12:51 | P.PN ---
Subjective Progress Note Date: 10/18/18 Principal diagnosis: Acute exacerbation of diastolic congestive heart failure along with a COPD exacerbation. Patient is seen today 10/18/2018 in follow-up on the selective care unit. She is currently resting comfortably in bed. She is awake and alert. She is currently maintaining on BiPAP 16/5 at 40% FiO2. He alternates with 4 L/m per nasal cannula for short periods of time and during meals. White count 8.6. Hemoglobin 10.4. Creatinine 1.34. She remains on IV diuretics 40 mg every 8 hours. She is continued on Symbicort and DuoNeb inhalations. Objective - Vital Signs Vital signs: Vital Signs Temp 95.5 F L 10/18/18 08:00 Pulse 84 10/18/18 12:10 Resp 24 10/18/18 12:10 BP 123/61 10/18/18 08:00 Pulse Ox 95 10/18/18 08:11 Intake & Output 10/17/18 10/18/18 10/18/18 18:59 06:59 18:59 Intake Total 1080 600 240 Output Total 400 650 Balance 680 -50 240 Intake: Oral 1080 600 240 Output: Urine 400 650 Other: Voiding Method Incontinent # Voids 1 - Exam GENERAL EXAM: Alert, 68-year-old female, comfortable in no apparent distress. Currently on BiPAP. HEAD: Normocephalic/atraumatic. EYES: Normal reaction of pupils, equal size. Conjunctiva pink, sclera white. NOSE: Clear with pink turbinates. THROAT: No erythema or exudates. NECK: No masses, no JVD, no thyroid enlargement, no adenopathy. CHEST: No chest wall deformity. Symmetrical expansion. A few scattered wheezes LUNGS: Equal air entry with crackles in the posterior bases. Diminished. CVS: Regular rate and rhythm, normal S1 and S2, no gallops, no murmurs, no rubs ABDOMEN: Soft, nontender. No hepatosplenomegaly, normal bowel sounds, no guarding or rigidity. EXTREMITIES: No clubbing, lower extremity edema, changes consistent with chronic venous stasis, right lower leg is wrapped, no cyanosis, 2+ pulses and upper and lower extremities. MUSCULOSKELETAL: Muscle strength and tone normal. SPINE: No scoliosis or deformity SKIN: No rashes CENTRAL NERVOUS SYSTEM: -3. No focal deficits, tone is normal in all 4 extremities. - Labs CBC & Chem 7: 10/18/18 06:22 10/18/18 06:22 Labs: Abnormal Lab Results - Last 24 Hours (Table) 10/18/18 10/18/18 Range/Units 06:22 06:22 Hgb 10.4 L (11.4-16.0) gm/dL MCH 24.9 L (25.0-35.0) pg MCHC 27.8 L (31.0-37.0) g/dL RDW 20.4 H (11.5-15.5) % Metamyelocytes # (Man) 0.09 H (0) k/uL Carbon Dioxide 35 H (22-30) mmol/L BUN 44 H (7-17) mg/dL Creatinine 1.34 H (0.52-1.04) mg/dL Assessment and Plan Assessment: Assessment: #1. Shortness of breath related to acute exacerbation of chronic congestive heart failure, with diastolic dysfunction #2. COPD exacerbation related to the above #3. Morbid obesity #4. Pickwickian syndrome #5. Chronic hypoxemic and hypercapnic respiratory failure BiPAP nocturnally #6. History of sleep apnea syndrome #7. Chronic atrial fibrillation #8. GERD #9. Hypertension #10. Right lower extremity cellulitis Plan: Patient was seen and evaluated by Dr. Joshi. We'll continue with her current treatment plan for now. She remains on IV diuretics. We will continue to titrate down her FiO2 as tolerated. We'll continue to follow. I, the cosigning physician, performed a history & physical examination of the patient. Lungs sounds with faint crackles in the posterior bases. Maintaining good O2 saturations in the 90s alternating BiPAP with 4 L/m per nasal cannula. I discussed the assessment and plan of care with my nurse practitioner, Iveth Da Silva. I attest to the above note as dictated by her.
[2018-10-18] MEDS: LORazepam 2 MG/ML INJ IV PRN ×2 (13:54→23:29)
[2018-10-18] MEDS: MULTIVITAMINS, THERA 1 EACH TAB PO SCH (13:54)
--- NOTE | 2018-10-18 19:57 | P.PN ---
Subjective Progress Note Date: 10/18/18 Progress note being dictated for Dr. Allred. Interval history: This is a 68-year-old female admitted with acute exacerbation CHF, acute hypoxic hypercarbic respiratory failure, COPD exacerbation, restrictive lung disease, and multiple other medical issues. Diuresing well on diuretics with 24-hour I&O reflecting a negative fluid balance, creatinine mildly elevated at 1.66. Maintained on fluid restrictions, nebulized bronchodilators with breathing slowly improving. BiPAP at bedside, currently off. 10/18/18 confused this morning,Family at bedside. Continues on nebulized bronchodilators, Symbicort. Currently on BiPAP, alternating with 4 L nasal cannula O2. Yesterday creatinine climbing up, Lasix dose decreased, creatinine improving down to 1.34. Objective - Vital Signs Vital signs: Vital Signs Temp 98.8 F 10/17/18 20:00 Pulse 75 10/18/18 03:08 Resp 20 10/18/18 03:08 BP 101/57 10/18/18 03:08 Pulse Ox 92 L 10/18/18 03:08 Intake & Output 10/17/18 10/18/18 10/18/18 18:59 06:59 18:59 Intake Total 1080 600 240 Output Total 400 650 Balance 680 -50 240 Intake: Oral 1080 600 240 Output: Urine 400 650 Other: Voiding Method Incontinent - Exam PHYSICAL EXAM: VITAL SIGNS: As above GENERAL: Sitting up in bed, confused, wearing BiPAP HEENT: Conjunctivae normal. eyes normal. NECK: No JVD. No thyroid enlargement. No LNs CARDIOVASCULAR: S1, S2 muffled. No murmur RESPIRATION: Breath sounds diminished in the bases. Occasional scattered rhonchi, bibasilar crackles. ABDOMEN: Soft, nontender . No guarding. no masses palpable. Bowel sounds heard. LEGS: No edema. no swelling. Right lower leg emmy wrapped. PSYCHIATRY: Alert and oriented -3, mood and affect normal. NERVOUS SYSTEM: Cranial N 2-12 grossly normal. Moves all 4 limbs. Diffuse weakness No focal deficits. Skin: no rash - Labs CBC & Chem 7: 10/18/18 06:22 10/18/18 06:22 Labs: Abnormal Lab Results - Last 24 Hours (Table) 10/18/18 10/18/18 Range/Units 06:22 06:22 Hgb 10.4 L (11.4-16.0) gm/dL MCH 24.9 L (25.0-35.0) pg MCHC 27.8 L (31.0-37.0) g/dL RDW 20.4 H (11.5-15.5) % Metamyelocytes # (Man) 0.09 H (0) k/uL Carbon Dioxide 35 H (22-30) mmol/L BUN 44 H (7-17) mg/dL Creatinine 1.34 H (0.52-1.04) mg/dL Assessment and Plan Assessment: -Shortness of breath, multifactorial, mostly acute on chronic CHF exacerbation, diastolic dysfunction, acute hypoxic hypercarbic respiratory failure, acute COPD exacerbation -Morbid obesity, BMI 50 with possible restrictive lung disease -Acute on chronic renal failure, stage III -History of right lower leg cellulitis -History of A. fib -Gastroesophageal reflux disease -Hypertension -Chronic hypoxic respiratory failure on home O2, BiPAP -History of sleep apnea -History of MRSA, VRE and MDRO Plan: Continue on current medication regime ,monitoring and symptomatic treatment. Continue on nebulized bronchodilators, fluid restrictions,lasix. Close monitoring of renal function and electrolytes with repeat labs ordered for a.m. Further recommendations to follow. The impression and plan of care has been dictated as directed. : I performed a history and examination of this patient, discussed the same with the dictator. I agree with the dictator's note ,documented as a scribe. Any additional findings or plans will be noted.
[2018-10-18] MEDS: risperiDONE 0.25 MG TAB PO SCH (20:15)
[2018-10-18] MEDS: MELATONIN 3 MG TABLET PO PRN (20:15)
[2018-10-19] MEDS: ACETAMINOPHEN TAB 325 MG TAB PO PRN (06:11)
[2018-10-19] MEDS: PANTOPRAZOLE 40 MG TABLET PO SCH (06:11)
[2018-10-19] MEDS: IPRATROPIUM-ALBUTEROL 3 ML NEB INHALATION SCH ×4 (07:08→20:10)
[2018-10-19 07:19] LABS: Anisocytosis Moderate; Basophils % (A) 0 %; Eosinophils # (A) 0.1 k/uL (0-0.7); Eosinophils % (A) 2 %; HCT 35.8 % (34.0-46.0); HGB 10.4 gm/dL (11.4-16.0); Hypochromasia Marked; Lymphocytes # (A) 1.7 k/uL (1.0-4.8); Lymphocytes % (A) 20 %; MCHC 28.9 g/dL (31.0-37.0); MCV 86.3 fL (80.0-100.0); Mean Platelet Volume 8.4; Microcytosis Slight; Monocytes # (A) 0.5 k/uL (0-1.0); Monocytes % (A) 6 %; Neutrophils # (A) 5.7 k/uL (1.3-7.7); Neutrophils % (A) 68 %; Platelet Count 185 k/uL (150-450); Poikilocytosis Moderate; RBC 4.15 m/uL (3.80-5.40); RDW 20.5 % (11.5-15.5); WBC 8.4 k/uL (3.8-10.6)
[2018-10-19] MEDS: SYMBICORT 160-4.5 MCG INHALER INHALATION SCH ×2 (07:20→20:10)
[2018-10-19 07:27] LABS: Calcium 9.8 mg/dL (8.4-10.2); Potassium 3.7 mmol/L (3.5-5.1)
[2018-10-19] MEDS: ASPIRIN 325 MG TAB PO SCH (08:12)
[2018-10-19] MEDS: FUROSEMIDE 10 MG/ML 4 ML VIAL IV SCH ×2 (08:12→15:59)
[2018-10-19] MEDS: acetaZOLAMIDE 250 MG TAB PO SCH (08:13)
[2018-10-19] MEDS: DILTIAZEM ORAL 30 MG TAB PO SCH ×2 (08:13→22:10)
[2018-10-19] MEDS: APIXABAN 5 MG TAB PO SCH ×2 (08:13→22:10)
[2018-10-19] MEDS: LORazepam 2 MG/ML INJ IV PRN ×2 (08:14→15:59)
--- NOTE | 2018-10-19 10:18 | P.PN ---
Subjective Progress Note Date: 10/19/18 Principal diagnosis: Acute exacerbation of diastolic congestive heart failure along with a COPD exacerbation. Patient is seen today 10/18/2018 in follow-up on the selective care unit. She is currently resting comfortably in bed. She is awake and alert. She is currently maintaining on BiPAP 16/5 at 40% FiO2. He alternates with 4 L/m per nasal cannula for short periods of time and during meals. White count 8.6. Hemoglobin 10.4. Creatinine 1.34. She remains on IV diuretics 40 mg every 8 hours. She is continued on Symbicort and DuoNeb inhalations. The patient is seen again today 10/19/2017 in follow-up on the selective care unit. She is currently awake and alert in no acute distress. Answering questions appropriately. She is off the BiPAP and maintaining O2 saturations in the 90s on 4 L/m per nasal cannula. She's been afebrile. Hemodynamically stable. White count 8.4. Hemoglobin 10.4. Creatinine 1.21. She remains on bronchodilators and Symbicort. Anticoagulated with Eliquis. Continued on IV diuretics. Objective - Vital Signs Vital signs: Vital Signs Temp 98 F 10/19/18 03:05 Pulse 80 10/19/18 07:22 Resp 18 10/19/18 03:05 BP 111/57 10/19/18 03:05 Pulse Ox 93 L 10/19/18 03:05 Intake & Output 10/18/18 10/19/18 10/19/18 18:59 06:59 18:59 Intake Total 840 240 Output Total 1100 Balance 840 -1100 240 Weight 133 kg Intake: Oral 840 240 Output: Urine 1100 Other: Voiding Method Incontinent # Voids 1 1 - Exam GENERAL EXAM: Morbidly obese. Alert, 68-year-old female, comfortable in no apparent distress. Currently on 4 L/m per nasal cannula. HEAD: Normocephalic/atraumatic. EYES: Normal reaction of pupils, equal size. Conjunctiva pink, sclera white. NOSE: Clear with pink turbinates. THROAT: There is crowding the posterior pharynx. No erythema or exudates. NECK: No masses, no JVD, no thyroid enlargement, no adenopathy. CHEST: No chest wall deformity. Symmetrical expansion. A few scattered wheezes LUNGS: Equal air entry with crackles in the posterior bases. Diminished. CVS: Regular rate and rhythm, normal S1 and S2, no gallops, no murmurs, no rubs ABDOMEN: Soft, nontender. No hepatosplenomegaly, normal bowel sounds, no guarding or rigidity. EXTREMITIES: No clubbing, lower extremity edema, changes consistent with chronic venous stasis, right lower leg is wrapped, no cyanosis, 2+ pulses and upper and lower extremities. MUSCULOSKELETAL: Muscle strength and tone normal. SPINE: No scoliosis or deformity SKIN: No rashes CENTRAL NERVOUS SYSTEM: -3. No focal deficits, tone is normal in all 4 extremities. - Labs CBC & Chem 7: 10/19/18 06:34 10/19/18 06:34 Labs: Abnormal Lab Results - Last 24 Hours (Table) 10/19/18 10/19/18 Range/Units 06:34 06:34 Hgb 10.4 L (11.4-16.0) gm/dL MCHC 28.9 L (31.0-37.0) g/dL RDW 20.5 H (11.5-15.5) % Carbon Dioxide 37 H (22-30) mmol/L BUN 39 H (7-17) mg/dL Creatinine 1.21 H (0.52-1.04) mg/dL Assessment and Plan Assessment: Assessment: #1. Shortness of breath related to acute exacerbation of chronic congestive heart failure, with diastolic dysfunction #2. COPD exacerbation related to the above #3. Morbid obesity #4. Pickwickian syndrome #5. Chronic hypoxemic and hypercapnic respiratory failure BiPAP nocturnally #6. History of sleep apnea syndrome #7. Chronic atrial fibrillation #8. GERD #9. Hypertension #10. Right lower extremity cellulitis Plan: Patient was seen and evaluated by Dr. Joshi. She is more awake and alert today compared to yesterday. Continue pulmonary medications. Continue diuretics. We will continue to titrate down her FiO2 as tolerated. We'll continue to follow. I, the cosigning physician, performed a history & physical examination of the patient. Lungs sounds with faint crackles in the posterior bases. Maintaining good O2 saturations in the 90s alternating BiPAP with 4 L/m per nasal cannula. I discussed the assessment and plan of care with my nurse practitioner, Iveth Da Silva. I attest to the above note as dictated by her.
[2018-10-19 11:27] LABS: Glucose,Whole Blood 133 mg/dL (75-99)
[2018-10-19] MEDS: MULTIVITAMINS, THERA 1 EACH TAB PO SCH (12:47)
[2018-10-19] MEDS: METOPROLOL TARTRATE 50 MG TAB PO SCH ×2 (12:47→22:10)
[2018-10-19] MEDS: MELATONIN 3 MG TABLET PO PRN (22:10)
[2018-10-19] MEDS: risperiDONE 0.25 MG TAB PO SCH (22:10)
--- NOTE | 2018-10-19 23:20 | P.PN ---
Subjective Progress Note Date: 10/19/18 Progress note being dictated for Dr. Allred. Interval history: This is a 68-year-old female admitted with acute exacerbation CHF, acute hypoxic hypercarbic respiratory failure, COPD exacerbation, restrictive lung disease, and multiple other medical issues. Diuresing well on diuretics with 24-hour I&O reflecting a negative fluid balance, creatinine mildly elevated at 1.66. Maintained on fluid restrictions, nebulized bronchodilators with breathing slowly improving. BiPAP at bedside, currently off. 10/18/18 confused this morning,Family at bedside. Continues on nebulized bronchodilators, Symbicort. Currently on BiPAP, alternating with 4 L nasal cannula O2. Yesterday creatinine climbing up, Lasix dose decreased, creatinine improving down to 1.34. 10/19/2018 . Increased agitation, confused, yelling, throwing things, states she is tired of hurting," never comfortable". Maintained on nebulized bronchodilators, Symbicort, IV diuretics. Creatinine 1.21. currently off BiPAP. Denies chest pain, palpitations. Anticoagulated on Eliquis Objective - Vital Signs Vital signs: Vital Signs Temp 98.3 F 10/19/18 20:00 Pulse 90 10/19/18 20:00 Resp 18 10/19/18 20:00 BP 130/61 10/19/18 20:00 Pulse Ox 95 10/19/18 20:00 Intake & Output 10/19/18 10/19/18 10/20/18 06:59 18:59 06:59 Intake Total 462 Output Total 1100 200 Balance -1100 262 Weight 133 kg Intake: Oral 462 Output: Urine 1100 200 Other: Voiding Method Incontinent Incontinent Incontinent # Voids 1 - Exam PHYSICAL EXAM: VITAL SIGNS: As above GENERAL: Sitting up in bed, confused, agitated, restless HEENT: Conjunctivae normal. eyes normal. Oral mucosa moist NECK: No JVD. No thyroid enlargement. No LNs CARDIOVASCULAR: S1, S2 muffled. No murmur RESPIRATION: Breath sounds diminished in the bases. bibasilar crackles. ABDOMEN: Soft, nontender . No guarding. no masses palpable. Bowel sounds heard. LEGS: No edema. no swelling. Right lower leg emmy wrapped. PSYCHIATRY: Alert and oriented -3, mood and affect normal. NERVOUS SYSTEM: Cranial N 2-12 grossly normal. Moves all 4 limbs. Diffuse weakness No focal deficits. - Labs CBC & Chem 7: 10/19/18 06:34 10/19/18 06:34 Labs: Abnormal Lab Results - Last 24 Hours (Table) 10/19/18 10/19/18 10/19/18 Range/Units 06:34 06:34 11:15 Hgb 10.4 L (11.4-16.0) gm/dL MCHC 28.9 L (31.0-37.0) g/dL RDW 20.5 H (11.5-15.5) % Carbon Dioxide 37 H (22-30) mmol/L BUN 39 H (7-17) mg/dL Creatinine 1.21 H (0.52-1.04) mg/dL POC Glucose (mg/dL) 133 H (75-99) mg/dL Assessment and Plan Assessment: -Shortness of breath, multifactorial, mostly acute on chronic CHF exacerbation, diastolic dysfunction, acute hypoxic hypercarbic respiratory failure, acute COPD exacerbation -Morbid obesity, BMI 50 with possible restrictive lung disease -Acute on chronic renal failure, stage III -History of right lower leg cellulitis -History of A. fib -Gastroesophageal reflux disease -Hypertension -Chronic hypoxic respiratory failure on home O2, BiPAP -History of sleep apnea -History of MRSA, VRE and MDRO Plan: Continue on current medication regime ,monitoring and symptomatic treatment. Condition continues to decline, poor prognosis. Discussed hospice with family .family requesting hospice informational meeting with discharge tomorrow to hospice. Continue on nebulized bronchodilators, fluid restrictions, lasix. Maintain supportive care with close monitoring of renal function and electrolytes.repeat labs ordered for a.m. The impression and plan of care has been dictated as directed. : I performed a history and examination of this patient, discussed the same with the dictator. I agree with the dictator's note ,documented as a scribe. Any additional findings or plans will be noted.
[2018-10-20] MEDS: LORazepam 2 MG/ML INJ IV PRN (00:06)
[2018-10-20] MEDS: FUROSEMIDE 10 MG/ML 4 ML VIAL IV SCH ×2 (00:06→12:16)
[2018-10-20] MEDS: PANTOPRAZOLE 40 MG TABLET PO SCH ×2 (05:48→05:49)
[2018-10-20 06:11] VITALS: TEMP 97.9
[2018-10-20 07:00] LABS: Anisocytosis Moderate; Basophils % (A) 0 %; Eosinophils # (A) 0.2 k/uL (0-0.7); Eosinophils % (A) 2 %; HCT 36.5 % (34.0-46.0); HGB 10.6 gm/dL (11.4-16.0); Hypochromasia Marked; Lymphocytes # (A) 1.9 k/uL (1.0-4.8); Lymphocytes % (A) 18 %; MCH 24.9 pg (25.0-35.0); MCV 86.1 fL (80.0-100.0); Microcytosis Slight; Monocytes # (A) 0.4 k/uL (0-1.0); Monocytes % (A) 4 %; Neutrophils # (A) 7.5 k/uL (1.3-7.7); Neutrophils % (A) 74 %; Platelet Count 168 k/uL (150-450); Poikilocytosis Moderate; RBC 4.24 m/uL (3.80-5.40); RDW 20.2 % (11.5-15.5); WBC 10.1 k/uL (3.8-10.6)
[2018-10-20 07:13] LABS: Calcium 9.5 mg/dL (8.4-10.2); Potassium 3.7 mmol/L (3.5-5.1)
[2018-10-20] MEDS ORDERED: HALOPERIDOL LACTATE 5 MG/ML 1 ML VIAL IVP PRN (08:48)
[2018-10-20] MEDS: SYMBICORT 160-4.5 MCG INHALER INHALATION SCH (08:52)
[2018-10-20] MEDS: IPRATROPIUM-ALBUTEROL 3 ML NEB INHALATION SCH ×2 (08:52→11:59)
--- NOTE | 2018-10-20 09:40 | P.PN ---
Subjective Progress Note Date: 10/20/18 Principal diagnosis: Acute exacerbation of diastolic congestive heart failure along with a COPD exacerbation. Patient is seen today 10/18/2018 in follow-up on the selective care unit. She is currently resting comfortably in bed. She is awake and alert. She is currently maintaining on BiPAP 16/5 at 40% FiO2. He alternates with 4 L/m per nasal cannula for short periods of time and during meals. White count 8.6. Hemoglobin 10.4. Creatinine 1.34. She remains on IV diuretics 40 mg every 8 hours. She is continued on Symbicort and DuoNeb inhalations. The patient is seen again today 10/19/2017 in follow-up on the selective care unit. She is currently awake and alert in no acute distress. Answering questions appropriately. She is off the BiPAP and maintaining O2 saturations in the 90s on 4 L/m per nasal cannula. She's been afebrile. Hemodynamically stable. White count 8.4. Hemoglobin 10.4. Creatinine 1.21. She remains on bronchodilators and Symbicort. Anticoagulated with Eliquis. Continued on IV diuretics. The patient is seen again today 10/20/2017 in follow-up on the selective care unit. Her condition remains about the same. No real improvement. Mostly BiPAP dependent. Currently maintaining O2 saturations in the low 90s on 40% FiO2. She's been afebrile. Hemodynamically stable. White count 10.1. Hemoglobin 10.6. Creatinine 1.12. Currently in a negative balance. She remains on Lasix 40 mg IV push every 8 hours. Objective - Vital Signs Vital signs: Vital Signs Temp 97.9 F 10/20/18 04:30 Pulse 71 10/20/18 04:30 Resp 18 10/20/18 04:30 BP 115/53 10/20/18 04:30 Pulse Ox 90 L 10/20/18 04:30 Intake & Output 10/19/18 10/20/18 10/20/18 18:59 06:59 18:59 Intake Total 462 100 Output Total 200 1200 Balance 262 -1100 Weight 129 kg Intake: Oral 462 100 Output: Urine 200 1200 Other: Voiding Method Incontinent Incontinent # Voids 1 - Exam GENERAL EXAM: Morbidly obese. Alert, 68-year-old female, comfortable in no apparent distress. Currently on BiPAP at 40% FiO2. HEAD: Normocephalic/atraumatic. EYES: Normal reaction of pupils, equal size. Conjunctiva pink, sclera white. NOSE: Clear with pink turbinates. THROAT: There is crowding the posterior pharynx. No erythema or exudates. NECK: No masses, no JVD, no thyroid enlargement, no adenopathy. CHEST: No chest wall deformity. Symmetrical expansion. A few scattered wheezes LUNGS: Equal air entry with crackles in the posterior bases. Diminished. CVS: Regular rate and rhythm, normal S1 and S2, no gallops, no murmurs, no rubs ABDOMEN: Soft, nontender. No hepatosplenomegaly, normal bowel sounds, no guarding or rigidity. EXTREMITIES: No clubbing, lower extremity edema, changes consistent with chronic venous stasis, right lower leg is wrapped, no cyanosis, 2+ pulses and upper and lower extremities. MUSCULOSKELETAL: Muscle strength and tone normal. SPINE: No scoliosis or deformity SKIN: No rashes CENTRAL NERVOUS SYSTEM: -3. No focal deficits, tone is normal in all 4 extremities. - Labs CBC & Chem 7: 10/20/18 06:08 10/20/18 06:08 Labs: Abnormal Lab Results - Last 24 Hours (Table) 10/19/18 10/20/18 10/20/18 Range/Units 11:15 06:08 06:08 Hgb 10.6 L (11.4-16.0) gm/dL MCH 24.9 L (25.0-35.0) pg MCHC 29.0 L (31.0-37.0) g/dL RDW 20.2 H (11.5-15.5) % Carbon Dioxide 40 H (22-30) mmol/L BUN 36 H (7-17) mg/dL Creatinine 1.12 H (0.52-1.04) mg/dL Glucose 104 H (74-99) mg/dL POC Glucose (mg/dL) 133 H (75-99) mg/dL Assessment and Plan Assessment: Assessment: #1. Acute on chronic hypoxic/hypercapnic respiratory failure secondary to an acute exacerbation of chronic congestive heart failure, with diastolic dysfunction #2. COPD exacerbation related to the above #3. Morbid obesity #4. Pickwickian syndrome #5. Chronic hypoxemic and hypercapnic respiratory failure BiPAP nocturnally #6. History of sleep apnea syndrome #7. Chronic atrial fibrillation #8. GERD #9. Hypertension #10. Right lower extremity cellulitis Plan: Patient was seen and evaluated by Dr. Joshi. He did speak with the patient's sister yesterday. The patient has not shown signs of any significant improvement. She is mainly BiPAP dependent. She will discussed with the patient's daughter CODE STATUS and possible hospice placement. Continue pulmonary medications. Continue diuretics. We will continue to titrate down her FiO2 as tolerated. We'll continue to follow. I, the cosigning physician, performed a history & physical examination of the patient. Lungs sounds with faint crackles in the posterior bases. Maintaining good O2 saturations in the 90s alternating BiPAP with 4 L/m per nasal cannula. I discussed the assessment and plan of care with my nurse practitioner, Iveth Da Silva. I attest to the above note as dictated by her.
[2018-10-20] MEDS: METOPROLOL TARTRATE 50 MG TAB PO SCH (12:16)
[2018-10-20] MEDS: ASPIRIN 325 MG TAB PO SCH (12:16)
[2018-10-20] MEDS: MULTIVITAMINS, THERA 1 EACH TAB PO SCH (12:16)
[2018-10-20] MEDS: DILTIAZEM ORAL 30 MG TAB PO SCH (12:17)
[2018-10-20] MEDS: acetaZOLAMIDE 250 MG TAB PO SCH (12:17)
[2018-10-20] MEDS: APIXABAN 5 MG TAB PO SCH (12:17)
[2018-10-20 12:26] VITALS: BP 119/64; PULSE 85; RESP 16
--- NOTE | 2018-10-21 07:17 | DS ---
DISCHARGE SUMMARY FINAL DIAGNOSES: 1. Shortness of breath, multifactorial mostly congestive heart failure acute exacerbation with acute on chronic diastolic dysfunction, acute hypoxic hypercarbic respiratory failure and as well as chronic obstructive pulmonary disease acute exacerbation. 2. Morbid obesity, BMI of . 3. Acute on chronic renal failure, stage III. 4. History of right lower leg cellulitis. 5. History of atrial fibrillation. 6. History of gastroesophageal reflux disease. 7. Hypertension. 8. Chronic hypoxic respiratory failure on home O2. 9. History of sleep apnea. 10.History of methicillin-resistant Staphylococcus aureus, VRE, and MDRO. 11.NO CODE, NO CPR, NO VENT. 12.Comfort measures and hospice. HISTORY OF PRESENT ILLNESS: This 68-year-old woman with a past medical history of multiple medical problems admitted with shortness of breath which is multifactorial. Treated with bronchodilators, steroids and antibiotics and as well as BiPAP. The patient did not improve and the patient is refusing treatment at this time. The patient continues to be confused and multiple consultants including Cardiology and Pulmonology saw the patient. Had discussion held with the family and at this time hospice is being recommended. The patient will be discharged in stable condition with guarded prognosis with the following advice. 1. Diet is as tolerated. 2. Follow up with the primary physician as mentioned earlier. Medications will be: 1. Symbicort 160/4.5 two puffs b.i.d. 2. Diltiazem 90 mg p.o. b.i.d. 3. Sarita 180 mg daily p.r.n. 4. Lasix 40 to 80 p.r.n. 5. DuoNeb q.i.d. and p.r.n. 6. Lopressor 100 mg p.o. b.i.d. 7. Tylenol 650 q.6 p.r.n. 8. Protonix 40 mg daily. The rest of the medications per hospice. Once again, the patient will be discharged in stable condition with guarded prognosis. MMODL / IJN: [id number] /
== END 2018-10-20 13:45 | disposition hospice, home (50) | DRG 291 ==
LOC: EC 18:26 → 3SCARD 22:02
PROVIDERS: ADMIT Internal Medicine; ATTEND Internal Medicine
PROC: 5A09557 Assistance with Respiratory Ventilation, Greater than 96 Consecutive Hours, Continuous Positive Airway Pressure (ICD-10-PCS; principal; 2018-10-14)
DX: I13.0 Hypertensive heart and chronic kidney disease with heart failure and stage 1 through stage 4 chronic kidney disease, or unspecified chronic kidney disease (principal); I50.33 Acute on chronic diastolic (congestive) heart failure; J96.21 Acute and chronic respiratory failure with hypoxia; J96.22 Acute and chronic respiratory failure with hypercapnia; E66.2 Morbid (severe) obesity with alveolar hypoventilation; Z68.42 Body mass index [BMI] 45.0-49.9, adult; N17.9 Acute kidney failure, unspecified; L03.115 Cellulitis of right lower limb; J44.1 Chronic obstructive pulmonary disease with (acute) exacerbation; I27.20 Pulmonary hypertension, unspecified; Z51.5 Encounter for palliative care; J98.4 Other disorders of lung; I48.2 Chronic atrial fibrillation; N18.3 Chronic kidney disease, stage 3 (moderate); G47.33 Obstructive sleep apnea (adult) (pediatric); I25.10 Atherosclerotic heart disease of native coronary artery without angina pectoris; H91.91 Unspecified hearing loss, right ear; I87.8 Other specified disorders of veins; D50.9 Iron deficiency anemia, unspecified; R32 Unspecified urinary incontinence; K21.9 Gastro-esophageal reflux disease without esophagitis; Z79.51 Long term (current) use of inhaled steroids; Z79.82 Long term (current) use of aspirin; Z79.899 Other long term (current) drug therapy; Z79.01 Long term (current) use of anticoagulants; Z90.49 Acquired absence of other specified parts of digestive tract; Z99.81 Dependence on supplemental oxygen; Z87.891 Personal history of nicotine dependence; Z87.440 Personal history of urinary (tract) infections; Z87.11 Personal history of peptic ulcer disease; Z87.01 Personal history of pneumonia (recurrent); Z86.19 Personal history of other infectious and parasitic diseases; Z86.14 Personal history of Methicillin resistant Staphylococcus aureus infection; Z83.3 Family history of diabetes mellitus; Z82.49 Family history of ischemic heart disease and other diseases of the circulatory system; Z84.1 Family history of disorders of kidney and ureter; Z83.518 Family history of other specified eye disorder; Z82.61 Family history of arthritis
CPT/HCPCS: 36415; 36600; 71046; 80048; 80053; 81001; 82550; 82553; 82805; 83880; 84484; 85025; 85610; 85730; 93005; 94640; 94660; 94760; 96374; 99291